=== PATIENT | female | born 1965 | race Caucasian/White ===

== ENCOUNTER → 2017-01-28 | Outpatient (CLI) | payer MEDICARE, MEDICAID ==
--- NOTE | 2017-02-01 09:10 | MM ---
Reason for exam: screening (asymptomatic). Baseline mammogram. History: Patient is postmenopausal. Benign excisional biopsy of the right breast, 1992. Physical Findings: Nurse did not find any significant physical abnormalities on exam. MG 3D Screening Mammo W/Cad Bilateral CC and MLO view(s) were taken. The breast tissue is extremely dense which could obscure a lesion on mammography. ASSESSMENT: Benign, BI-RAD 2 RECOMMENDATION: Routine screening mammogram of both breasts in 1 year.
== END | disposition home or self-care (01) ==
LOC: RADMAMWWP 14:15
PROVIDERS: ATTEND Obstetrics & Gynecology
DX: Z12.31 Encounter for screening mammogram for malignant neoplasm of breast (principal)
CPT/HCPCS: 77063; G0202

== ENCOUNTER 2017-03-02 12:15 | Day surgery (SDC) | payer MEDICARE, OTHER ==
[2017-03-01 13:18] VITALS: BMI 28.3
[~2017-03-02 12:15] MED LIST: LACTATED RINGERS 1,000 ML IV SCH; LIDOCAINE 1% 20 ML VIAL (10MG/ML) FOR IV START INTRADERMA PRN
[2017-03-02 12:47] LABS: Glucose,Whole Blood 415 mg/dL (75-99)
[2017-03-02 12:56] VITALS: BP 194/78; PULSE 86; RESP 16; TEMP 98.1
== END 2017-03-02 13:10 | disposition home or self-care (01) ==
LOC: ORWHC2ENDO 12:15
DX: Z12.11 Encounter for screening for malignant neoplasm of colon (principal)

== ENCOUNTER 2018-12-14 23:06 | Emergency (ER) | payer MEDICARE, OTHER ==
[2018-12-15 00:12] LABS: Basophils % (A) 0 %; Eosinophils % (A) 0 %; HCT 42.8 % (34.0-46.0); HGB 14.2 gm/dL (11.4-16.0); Lymphocytes # (A) 2.1 k/uL (1.0-4.8); Lymphocytes % (A) 32 %; MCH 32.6 pg (25.0-35.0); MCHC 33.1 g/dL (31.0-37.0); MCV 98.4 fL (80.0-100.0); Mean Platelet Volume 9.2; Monocytes # (A) 0.4 k/uL (0-1.0); Monocytes % (A) 7 %; Neutrophils # (A) 3.9 k/uL (1.3-7.7); Neutrophils % (A) 59 %; Platelet Count 297 k/uL (150-450); RBC 4.34 m/uL (3.80-5.40); RDW 13.6 % (11.5-15.5); WBC 6.6 k/uL (3.8-10.6)
[2018-12-15 00:24] LABS: Albumin 3.9 g/dL (3.5-5.0); Amylase 72 U/L (30-110); Anion Gap 6 mmol/L; Calcium 9.1 mg/dL (8.4-10.2); Carbon Dioxide 25 mmol/L (22-30); Chloride 107 mmol/L (98-107); Glucose 77 mg/dL (74-99); Lipase 70 U/L (23-300); Sodium 138 mmol/L (137-145); Total Bilirubin 0.9 mg/dL (0.2-1.3); Total Protein 6.9 g/dL (6.3-8.2)
[2018-12-15 00:31] LABS: ALT 30 U/L (9-52); AST 34 U/L (14-36); Alkaline Phosphatase 68 U/L (38-126); Blood Urea Nitrogen 13 mg/dL (7-17); Potassium 4.2 mmol/L (3.5-5.1)
--- NOTE | 2018-12-15 00:39 | XR ---
EXAMINATION TYPE: XR KUB DATE OF EXAM: 12/15/2018 COMPARISON: NONE HISTORY: Abdominal pain TECHNIQUE: 2 views FINDINGS: 2 upright views were obtained and show no sign of intestinal obstruction or pneumoperitoneu m. Fecal pattern is normal. Lung bases are clear. There are no pathologic calcifications over the kid neys. IMPRESSION: Nonacute abdomen.
[2018-12-15] MEDS ORDERED: MAG HYDROX/AL HYDROX/SIMETH 30 ML, HYOSCYAMINE ELIXIR 10 ML, CIMETIDINE HCL 300 MG, LID... PO STA ×4 (01:09)
[2018-12-15] MEDS ORDERED: ONDANSETRON 4 MG/2 ML VIAL IVP STA (01:09)
[2018-12-15] MEDS ORDERED: SODIUM CHLORIDE 0.9% 1,000 ML IV ONE (02:41)
[2018-12-15] MEDS ORDERED: METOCLOPRAMIDE 5 MG/ML 2 ML VIAL IVP STA (02:45)
--- NOTE | 2018-12-15 03:39 | ED ---
Abdominal Pain HPI - General Chief Complaint: Abdominal Pain Stated Complaint: Abdominal Pain Time Seen by Provider: 12/14/18 23:31 Source: patient, EMS Mode of arrival: EMS Limitations: no limitations - History of Present Illness MD Complaint: abdominal pain -: hour(s) Location: diffuse Radiation: none Migration to: no migration Severity: mild Quality: cramping Consistency: intermittent Improves With: nothing Worsens With: nothing Associated Symptoms: nausea, vomiting - Related Data Home Medications Medication Instructions Recorded Confirmed Albuterol Inhaler [Ventolin Hfa 1 - 2 puff INHALATION RT-Q6H PRN 11/10/16 Inhaler] Insulin Glargine,Hum.rec.anlog 20 unit SQ HS 11/10/16 12/14/18 [Lantus Solostar] Insulin NPH Hum/Reg Insulin Hm 10 unit SQ DAILY 11/10/16 12/14/18 [humuLIN 70/30 Kwikpen] Losartan-Hctz 50-12.5 mg [Hyzaar 1 tab PO DAILY 11/10/16 12/14/18 50-12.5] Insulin NPH Hum/Reg Insulin Hm 8 unit SQ HS 03/01/17 12/14/18 [humuLIN 70/30 Kwikpen] Venlafaxine HCl ER [Effexor XR] 150 mg PO HS 03/01/17 12/14/18 cloNIDine HCL 0.3 mg PO HS 12/14/18 12/14/18 Previous Rx's Medication Instructions Recorded Famotidine [Pepcid] 20 mg PO BID #14 tablet 12/15/18 Ondansetron Odt [Zofran ODT] 4 mg PO Q8HR PRN #10 tab 12/15/18 Allergies Allergy/AdvReac Type Severity Reaction Status Date / Time No Known Allergies Allergy Verified 12/14/18 23:26 Review of Systems ROS Statement: Those systems with pertinent positive or pertinent negative responses have been documented in the HPI. ROS Other: All systems not noted in ROS Statement are negative. Constitutional: Denies: fever, chills, weakness Respiratory: Denies: cough, dyspnea Cardiovascular: Denies: chest pain, palpitations, syncope Gastrointestinal: Reports: abdominal pain, nausea, vomiting. Denies: diarrhea, constipation, hematemesis, melena, hematochezia Genitourinary: Denies: dysuria, hematuria Musculoskeletal: Denies: back pain Skin: Denies: rash Neurological: Denies: headache, weakness, numbness Past Medical History Past Medical History: Diabetes Mellitus, Eye Disorder, Osteoarthritis (OA) Additional Past Medical History / Comment(s): MS, diabetes mellitus, diabetic neuropathy, ischemic neuropathy of the right eye, optic neuritis, History of Any Multi-Drug Resistant Organisms: None Reported Past Surgical History: Adenoidectomy, Appendectomy, Tonsillectomy, Tubal Ligation Past Anesthesia/Blood Transfusion Reactions: No Reported Reaction Past Psychological History: Anxiety, Depression Smoking Status: Current every day smoker Past Alcohol Use History: Occasional Past Drug Use History: None Reported - Past Family History Father Additional Family Medical History / Comment(s): She states she is adopted and she does not want anything about her father's history. Mother Family Medical History: Myocardial Infarction ([place]) Additional Family Medical History / Comment(s): Mother at age 48 from coronary artery disease. Patient does not have any brothers and sisters. She has one adult son with no major medical problems. General Exam Limitations: no limitations General appearance: alert, in no apparent distress Head exam: Present: atraumatic, normocephalic Eye exam: Present: normal appearance. Absent: scleral icterus, conjunctival injection ENT exam: Present: normal oropharynx Respiratory exam: Present: normal lung sounds bilaterally. Absent: respiratory distress, wheezes, rales, rhonchi, stridor Cardiovascular Exam: Present: regular rate, normal rhythm, normal heart sounds. Absent: systolic murmur, diastolic murmur, rubs, gallop GI/Abdominal exam: Present: soft. Absent: distended, tenderness, guarding, rebound, rigid, mass Extremities exam: Present: normal inspection, normal capillary refill. Absent: pedal edema Back exam: Present: normal inspection. Absent: CVA tenderness (R), CVA tenderness (L) Neurological exam: Present: alert Skin exam: Present: warm, dry, intact, normal color. Absent: rash Course Vital Signs 12/14/18 12/14/18 12/15/18 23:09 23:10 00:00 Temperature 98.0 F Pulse Rate 67 Respiratory 18 Rate Blood Pressure 150/75 129/69 O2 Sat by Pulse 100 100 98 Oximetry 12/15/18 12/15/18 12/15/18 01:00 01:51 04:30 Temperature Pulse Rate 54 L Respiratory 16 16 Rate Blood Pressure 107/63 101/58 O2 Sat by Pulse 100 100 Oximetry 12/15/18 12/15/18 12/15/18 05:00 06:00 06:54 Temperature 98.1 F Pulse Rate 72 64 52 L Respiratory 14 14 14 Rate Blood Pressure 101/58 102/62 95/53 O2 Sat by Pulse 100 Oximetry 12/15/18 08:18 Temperature 97.8 F Pulse Rate 55 L Respiratory 16 Rate Blood Pressure 96/54 O2 Sat by Pulse 99 Oximetry Medical Decision Making - Lab Data Result diagrams: 12/14/18 23:14 12/14/18 23:14 Lab Results 12/14/18 12/14/18 12/14/18 Range/Units 23:14 23:14 23:14 WBC 6.6 (3.8-10.6) k/uL RBC 4.34 (3.80-5.40) m/uL Hgb 14.2 (11.4-16.0) gm/dL Hct 42.8 (34.0-46.0) % MCV 98.4 (80.0-100.0) fL MCH 32.6 (25.0-35.0) pg MCHC 33.1 (31.0-37.0) g/dL RDW 13.6 (11.5-15.5) % Plt Count 297 (150-450) k/uL Neutrophils % 59 % Lymphocytes % 32 % Monocytes % 7 % Eosinophils % 0 % Basophils % 0 % Neutrophils # 3.9 (1.3-7.7) k/uL Lymphocytes # 2.1 (1.0-4.8) k/uL Monocytes # 0.4 (0-1.0) k/uL Eosinophils # 0.0 (0-0.7) k/uL Basophils # 0.0 (0-0.2) k/uL Sodium 138 (137-145) mmol/L Potassium 4.2 (3.5-5.1) mmol/L Chloride 107 (98-107) mmol/L Carbon Dioxide 25 (22-30) mmol/L Anion Gap 6 mmol/L BUN 13 (7-17) mg/dL Creatinine 0.73 (0.52-1.04) mg/dL Est GFR (CKD-EPI)AfAm >90 (>60 ml/min/1.73 sqM) Est GFR (CKD-EPI)NonAf >90 (>60 ml/min/1.73 sqM) Glucose 77 (74-99) mg/dL POC Glucose (mg/dL) (75-99) mg/dL POC Glu Data Processing Specialist ID Plasma Lactic Acid Roger 1.0 (0.7-2.0) mmol/L Calcium 9.1 (8.4-10.2) mg/dL Total Bilirubin 0.9 (0.2-1.3) mg/dL AST 34 (14-36) U/L ALT 30 (9-52) U/L Alkaline Phosphatase 68 (38-126) U/L Total Protein 6.9 (6.3-8.2) g/dL Albumin 3.9 (3.5-5.0) g/dL Amylase 72 (30-110) U/L Lipase 70 (23-300) U/L 12/15/18 12/15/18 12/15/18 Range/Units 04:29 05:03 07:37 WBC (3.8-10.6) k/uL RBC (3.80-5.40) m/uL Hgb (11.4-16.0) gm/dL Hct (34.0-46.0) % MCV (80.0-100.0) fL MCH (25.0-35.0) pg MCHC (31.0-37.0) g/dL RDW (11.5-15.5) % Plt Count (150-450) k/uL Neutrophils % % Lymphocytes % % Monocytes % % Eosinophils % % Basophils % % Neutrophils # (1.3-7.7) k/uL Lymphocytes # (1.0-4.8) k/uL Monocytes # (0-1.0) k/uL Eosinophils # (0-0.7) k/uL Basophils # (0-0.2) k/uL Sodium (137-145) mmol/L Potassium (3.5-5.1) mmol/L Chloride (98-107) mmol/L Carbon Dioxide (22-30) mmol/L Anion Gap mmol/L BUN (7-17) mg/dL Creatinine (0.52-1.04) mg/dL Est GFR (CKD-EPI)AfAm (>60 ml/min/1.73 sqM) Est GFR (CKD-EPI)NonAf (>60 ml/min/1.73 sqM) Glucose (74-99) mg/dL POC Glucose (mg/dL) 57 L 167 H 101 H (75-99) mg/dL POC Glu Data Processing Specialist HE Surekha DenishaDenisha Bullard Jackelyn Plasma Lactic Acid Roger (0.7-2.0) mmol/L Calcium (8.4-10.2) mg/dL Total Bilirubin (0.2-1.3) mg/dL AST (14-36) U/L ALT (9-52) U/L Alkaline Phosphatase (38-126) U/L Total Protein (6.3-8.2) g/dL Albumin (3.5-5.0) g/dL Amylase (30-110) U/L Lipase (23-300) U/L Disposition Clinical Impression: Abdominal pain Disposition: HOME SELF-CARE Condition: Good Instructions: Abdominal Pain (ED) Prescriptions: Famotidine [Pepcid] 20 mg PO BID #14 tablet Ondansetron Odt [Zofran ODT] 4 mg PO Q8HR PRN #10 tab PRN Reason: Nausea Is patient prescribed a controlled substance at d/c from ED?: No Referrals: Ryan Pino MD [Primary Care Provider] - 1-2 days
[2018-12-15 04:31] LABS: Glucose,Whole Blood 57 mg/dL (75-99)
[2018-12-15] MEDS ORDERED: DEXTROSE 50%-WATER 50 ML SYRINGE IVP STA (04:35)
[2018-12-15 05:07] LABS: Glucose,Whole Blood 167 mg/dL (75-99)
--- NOTE | 2018-12-15 05:25 | CT ---
EXAMINATION TYPE: CT abdomen pelvis w con DATE OF EXAM: 12/15/2018 COMPARISON: None HISTORY: RUQ pain CT DLP: 732.4 mGycm Automated exposure control for dose reduction was used. TECHNIQUE: Helical acquisition of images was performed from the lung bases through the pelvis. CONTRAST: Performed without Oral Contrast and with IV Contrast, patient injected with 100 mL of Isovue 300. FINDINGS: There is minimal subsegmental atelectasis at the lung bases. Heart size is normal. There is no perica rdial effusion. Stomach appears normal. Liver spleen pancreas gallbladder appear normal. Bile ducts are not dilated. There is no adrenal mass . Kidneys show satisfactory contrast opacification. There is no hydronephrosis. There are clips at th e cecum. There is no free fluid in the pelvis. Bladder distends smoothly. Ureters are not dilated. Th ere is no inguinal hernia. There is no free fluid in the pelvis. There is no evidence of pelvic mass. There is no mesenteric delia ma. I see no intestinal wall thickening. There is no sign of free air. I see no bony destructive proc ess. Lumbar spine is intact. IMPRESSION: SUBSEGMENTAL ATELECTASIS AT THE LUNG BASES. NO ACUTE ABNORMALITY WITHIN THE ABDOMEN AND PELVIS. I DO NOT SEE A CAUSE FOR RIGHT UPPER QUADRANT PAIN.
[2018-12-15 07:41] LABS: Glucose,Whole Blood 101 mg/dL (75-99)
--- NOTE | 2018-12-15 08:07 | US ---
EXAMINATION TYPE: US abdomen limited DATE OF EXAM: 12/15/2018 COMPARISON: CLINICAL HISTORY: Pain, attention RUQ. RUQ pain EXAM MEASUREMENTS: Liver Length: 15.3 cm Gallbladder Wall: 0.3 cm CBD: 0.3 cm CHD: 0.3 cm Right Kidney: 10.7 x 5.2 x 4.6 cm Pancreas: wnl Liver: wnl Gallbladder: wnl Evidence for sonographic Holman's sign: neg CBD: wnl CHD: wnl Right Kidney: wnl IMPRESSION: No sonographic evidence of cholelithiasis nor acute cholecystitis. Hepatic echotexture is unremarkable. No hydronephrosis of either kidney.
[2018-12-15 08:19] VITALS: BP 96/54; PULSE 55; RESP 16; TEMP 97.8
== END 2018-12-15 08:19 | disposition home or self-care (01) ==
LOC: EC 23:06
DX: R10.84 Generalized abdominal pain (principal); R11.2 Nausea with vomiting, unspecified; E11.40 Type 2 diabetes mellitus with diabetic neuropathy, unspecified; F32.9 Major depressive disorder, single episode, unspecified; F41.9 Anxiety disorder, unspecified; F17.200 Nicotine dependence, unspecified, uncomplicated; Z79.4 Long term (current) use of insulin; Z79.899 Other long term (current) drug therapy; Z90.49 Acquired absence of other specified parts of digestive tract
CPT/HCPCS: 36415 ×2; 80053; 82150; 83605; 83690; 85025; 74018; 76705; 74177; 99285; 96374; 96375 ×2; 96361 ×2; J2765; J2405; Q9967

== ENCOUNTER → 2020-07-04 | Outpatient (CLI) | payer MEDICARE, OTHER ==
--- NOTE | 2020-07-04 17:24 | CT ---
EXAMINATION TYPE: CT ankle RT wo con DATE OF EXAM: 07/04/2020 COMPARISON: None HISTORY: chronic right ankle pain CT DLP: 175.2 mGycm Automated exposure control for dose reduction was used. CONTRAST: CT scan of the right ankle is performed without intravenous contrast. Coronal and sagittal reformatte d images obtained. Three-dimensional images were generated on a separate workstation. FINDINGS: There is no evidence of acute fracture, fracture fragment, or dislocation. No evidence of cortical de pression. Normal osseous mineralization. There is narrowing of the tibiotalar joint space at the ankl e mortise. The ankle mortise is intact. Subchondral cysts of the tibiotalar and fibulotalar joints ar e seen. Plantar enthesophyte. Significant vascular calcifications. No evidence of fascial plane disru ption. No lytic or blastic osseous lesions. 3-dimensional images consistent with the above findings. IMPRESSION: 1. No acute osseous abnormality. 2. Degenerative ankle joint space narrowing and subchondral cysts. 3. Plantar enthesophyte. 4. Marked vascular calcified disease.
== END | disposition home or self-care (01) ==
LOC: RADCTMAIN 13:37
PROVIDERS: ATTEND Orthopaedic Surgery
DX: M19.071 Primary osteoarthritis, right ankle and foot (principal); M25.871 Other specified joint disorders, right ankle and foot; M77.51 Other enthesopathy of right foot and ankle; E10.9 Type 1 diabetes mellitus without complications; E03.9 Hypothyroidism, unspecified; G35 Multiple sclerosis

== ENCOUNTER → 2020-08-12 | Outpatient (CLI) | payer MEDICARE, OTHER ==
[2020-08-12 10:55] VITALS: BP 128/63; PULSE 85; RESP 18; TEMP 97.9
--- NOTE | 2020-08-12 11:22 | P.CONS ---
History of Present Illness - Reason for Consult Consult date: 08/12/20 - Chief Complaint Right ankle pain - History of Present Illness This is a 55-year-old lady with history of right ankle pain which started 2 years ago with no precipitating events. The pain has been getting worse to the extent that she has been using a cane to help her ambulate. Of note the patient has a history of diabetes and diabetic peripheral neuropathy and history also of tobacco use and alcohol abuse. Her pain is constant and gets worse by weight- bearing activities. It also wakes her up at night. She denies any numbness or tingling in the foot. She admits to using 4-5 pills of Motrin 800 mg every day. She tried tramadol before which didn't help her pain however she did try [place] before which has helped her pain as she states. She did use 10 mg of Barnhill before every day however that was long time ago. The patient also had multiple steroid injection in the ankle by her squilgeer which increased her blood sugar level and give her only temporary relief of her pain. Her surgeons at suggest that she gets to be on patellar joint replacement however she was denied surgeon because of her history of tobacco dependence. Review of Systems Constitutional: Denies chills, Denies fever Ears, nose, mouth and throat: Denies headache, Denies sore throat Cardiovascular: Denies chest pain, Denies shortness of breath Respiratory: Denies cough Genitourinary: Denies dysuria, Denies hematuria Musculoskeletal: Reports as per HPI Integumentary: Denies pruritus, Denies rash Neurological: Reports as per HPI Psychiatric: Denies anxiety, Denies depression Endocrine: Reports high blood sugars Past Medical History Past Medical History: Diabetes Mellitus, Eye Disorder, Musculoskeletal Disorder, Osteoarthritis (OA), Thyroid Disorder Additional Past Medical History / Comment(s): Mutiple Sclerosis. IDDM Type I, hx seizure w/ hypoglycemic episodes, diabetic neuropathy, ischemic neuropathy of the Lt eye, optic neuritis Rt eye. OA, efren in Rt ankle. Hx prob w/ cervical discs. History of Any Multi-Drug Resistant Organisms: None Reported Past Surgical History: Adenoidectomy, Appendectomy, Tonsillectomy, Tubal Ligation Additional Past Surgical History / Comment(s): Laparoscopies. Pain procedures. Past Anesthesia/Blood Transfusion Reactions: Motion Sickness Past Psychological History: Anxiety, Depression Smoking Status: Current some day smoker Past Alcohol Use History: Rare Additional Past Alcohol Use History / Comment(s): Started smoking at age 14, up to 1 1/2 ppd, quit 2 1/2 weeks ago. Past Drug Use History: Marijuana Additional Drug Use History / Comment(s): "may hit a joint rarely" - Past Family History Father Additional Family Medical History / Comment(s): She states she is adopted and she does not want anything about her father's history. Mother Family Medical History: Myocardial Infarction ([place]) Additional Family Medical History / Comment(s): Mother at age 48 from isaiah nary artery disease. Patient does not have any brothers and sisters. She has one adult son with no major medical problems. Medications and Allergies Home Medications Medication Instructions Recorded Confirmed Type Albuterol Inhaler (Mhu) [Ventolin 1 - 2 puff INHALATION RT-Q6H PRN 11/10/16 08/12/20 History Hfa Inhaler (Mhu)] Insulin Glargine,Hum.rec.anlog 18 unit SQ HS 11/10/16 08/12/20 History [Lantus Solostar] Insulin NPH Hum/Reg Insulin Hm 12 unit SQ DAILY 11/10/16 08/12/20 History [humuLIN 70/30 Kwikpen] Insulin NPH Hum/Reg Insulin Hm 14 unit SQ HS 03/01/17 08/12/20 History [humuLIN 70/30 Kwikpen] Venlafaxine HCl ER [Effexor XR] 75 mg PO TID 03/01/17 08/12/20 History cloNIDine HCL 0.3 mg PO HS 12/14/18 08/12/20 History Gabapentin [Neurontin] 800 mg PO TID 08/08/20 08/12/20 History Ibuprofen [Motrin] 800 mg PO Q8H PRN 08/08/20 08/12/20 History Levothyroxine Sodium [Synthroid] 100 mcg PO DAILY 08/08/20 08/12/20 History Losartan/Hydrochlorothiazide 1 tab PO DAILY 08/08/20 08/12/20 History [Losartan-Hctz 100-12.5 mg Tab] QUEtiapine [SEROquel] 100 mg PO HS 08/08/20 08/12/20 History Allergies Allergy/AdvReac Type Severity Reaction Status Date / Time No Known Allergies Allergy Verified 08/08/20 14:04 Physical Exam Vitals: Vital Signs Temp Pulse Resp BP Pulse Ox 08/12/20 10:47 97.9 F 85 18 128/63 98 - Constitutional General appearance: obese - EENT Eyes: PERRLA - Musculoskeletal Mild edema on the lateral malleolus. Positive tenderness around the lateral malleolus. Normal capillary refill in the right toes. Decreased but symmetrical dorsalis pedis pulse. Decreased range of motion of the right ankle due to increasing pain. - Psychiatric Psychiatric: A&O x's 3, appropriate affect, intact judgment & insight Results Comments: Computed tomography scan of the right ankle showed narrowing of the tibiotalar joint and subchondral cysts with plantar osteophytes and significant vascular calcifications. Assessment and Plan Plan: This is a 55-year-old lady with osteoarthritis in the right ankle joint and significant vascular calcification. The patient has a history of note peripheral neuropathy, insulin-dependent diabetes and tobacco dependence. She also has a remote history of alcohol abuse. The patient failed to respond to physical therapy and steroid injections in the right ankle joint by her squilgeer. The patient suggested that [place] might help her pain however with her history of alcohol abuse and tobacco dependence and withdrawal that she is a good candidate for that. I'll give the patient prescription for diclofenac ointment to be used on the right ankle. I encouraged the patient to decrease the usage of her Motrin to not more than 3 pills a day of 800 mg Motrin and preferably fewer. I also encouraged the patient to quit smoking. The patient will follow up with her squilgeer about this problem however I do not think that we can offer her any benefits in our clinic. I thank you for the referral.
== END | disposition home or self-care (01) ==
LOC: PNWHC3 10:39
PROVIDERS: ATTEND Anesthesiology
DX: M19.071 Primary osteoarthritis, right ankle and foot (principal); E11.21 Type 2 diabetes mellitus with diabetic nephropathy; E07.9 Disorder of thyroid, unspecified; R56.9 Unspecified convulsions; F17.210 Nicotine dependence, cigarettes, uncomplicated; Z79.899 Other long term (current) drug therapy; Z79.4 Long term (current) use of insulin; Z79.1 Long term (current) use of non-steroidal anti-inflammatories (NSAID); Z79.890 Hormone replacement therapy
CPT/HCPCS: 99211

== ENCOUNTER 2020-11-03 14:01 | Emergency (ER) | payer MEDICARE, OTHER ==
[2020-11-03 14:11] VITALS: TEMP 98
[2020-11-03] MEDS ORDERED: ONDANSETRON 4 MG/2 ML VIAL IVP STA (14:13)
[2020-11-03] MEDS ORDERED: SODIUM CHLORIDE 0.9% 1,000 ML IV STA ×2 (14:13)
[2020-11-03] MEDS ORDERED: METOCLOPRAMIDE 5 MG/ML 2 ML VIAL IVP STA (14:14)
[2020-11-03] MEDS ORDERED: PANTOPRAZOLE 40 MG/10 ML VIAL IVP STA (14:14)
[2020-11-03] MEDS ORDERED: diphenhydrAMINE 50 MG/ML 1 ML VIAL IVP STA (14:14)
--- NOTE | 2020-11-03 14:20 | ED ---
General Adult HPI - General Chief complaint: Nausea/Vomiting/Diarrhea Stated complaint: Nausea & vomiting Time Seen by Provider: 11/03/20 14:03 Source: patient, EMS, RN notes reviewed, old records reviewed Mode of arrival: EMS Limitations: no limitations - History of Present Illness Initial comments: 55-year-old female presents to the emergency department today for evaluation for complaints of nausea and vomiting starting last night. Patient is a type II diabetic reports her blood sugars have been abnormal. She states that she has a burning epigastric discomfort like heartburn. She also reports she's had 1 month of a cough. - Related Data Home Medications Medication Instructions Recorded Confirmed Insulin Glargine,Hum.rec.anlog 18 unit SQ HS 11/10/16 11/03/20 [Lantus Solostar] Insulin NPH Hum/Reg Insulin Hm 12 unit SQ BID 11/10/16 11/03/20 [humuLIN 70/30 Kwikpen] Gabapentin [Neurontin] 800 mg PO TID 08/08/20 11/03/20 Ibuprofen [Motrin] 800 mg PO TID PRN 08/08/20 11/03/20 Levothyroxine Sodium [Synthroid] 100 mcg PO DAILY 08/08/20 11/03/20 Losartan/Hydrochlorothiazide 1 tab PO DAILY 08/08/20 11/03/20 [Losartan-Hctz 100-12.5 mg Tab] QUEtiapine [SEROquel] 100 mg PO HS 08/08/20 11/03/20 Albuterol Sulfate [Ventolin HFA] 2 puff INHALATION RT-QID PRN 11/03/20 11/03/20 Cephalexin [Keflex] 500 mg PO Q8H 11/03/20 11/03/20 Previous Rx's Medication Instructions Recorded Metoclopramide [Reglan] 10 mg PO ACHS #12 tab 11/03/20 Pantoprazole [Protonix] 40 mg PO DAILY #20 tablet. 11/03/20 Allergies Allergy/AdvReac Type Severity Reaction Status Date / Time No Known Allergies Allergy Verified 11/03/20 15:53 Review of Systems ROS Statement: Those systems with pertinent positive or pertinent negative responses have been documented in the HPI. ROS Other: All systems not noted in ROS Statement are negative. Past Medical History Past Medical History: Diabetes Mellitus, Eye Disorder, Musculoskeletal Disorder, Osteoarthritis (OA), Thyroid Disorder Additional Past Medical History / Comment(s): Mutiple Sclerosis. IDDM Type I, hx seizure w/ hypoglycemic episodes, diabetic neuropathy, ischemic neuropathy of the Lt eye, optic neuritis Rt eye. OA, efren in Rt ankle. Hx prob w/ cervical discs. History of Any Multi-Drug Resistant Organisms: None Reported Past Surgical History: Adenoidectomy, Appendectomy, Tonsillectomy, Tubal Ligation Additional Past Surgical History / Comment(s): Laparoscopies. Pain procedures. Past Anesthesia/Blood Transfusion Reactions: Motion Sickness Past Psychological History: Anxiety, Depression Smoking Status: Current some day smoker Past Alcohol Use History: Occasional Past Drug Use History: Marijuana - Past Family History Father Additional Family Medical History / Comment(s): She states she is adopted and she does not want anything about her father's history. Mother Family Medical History: Myocardial Infarction ([place]) Additional Family Medical History / Comment(s): Mother at age 48 from coronary artery disease. Patient does not have any brothers and sisters. She has one adult son with no major medical problems. General Exam - General Exam Comments Initial Comments: 55 -year-old female. Patient appears in moderate discomfort. Limitations: no limitations General appearance: alert, in no apparent distress Head exam: Present: atraumatic, normocephalic, normal inspection Eye exam: Present: normal appearance, PERRL, EOMI. Absent: scleral icterus, conjunctival injection, periorbital swelling ENT exam: Present: normal exam, mucous membranes moist Neck exam: Present: normal inspection. Absent: tenderness, meningismus, lymphadenopathy Respiratory exam: Present: normal lung sounds bilaterally. Absent: respiratory distress, wheezes, rales, rhonchi, stridor Cardiovascular Exam: Present: regular rate, normal rhythm, normal heart sounds. Absent: systolic murmur, diastolic murmur, rubs, gallop, clicks GI/Abdominal exam: Present: soft Extremities exam: Present: normal inspection, full ROM, normal capillary refill. Absent: tenderness, pedal edema, joint swelling, calf tenderness Back exam: Present: normal inspection Neurological exam: Present: alert, oriented X3, CN II-XII intact Psychiatric exam: Present: normal affect, normal mood Skin exam: Present: warm, dry, intact, normal color. Absent: rash Course Vital Signs 11/03/20 11/03/20 14:03 15:19 Temperature 98.0 F Pulse Rate 89 84 Respiratory 18 16 Rate Blood Pressure 168/75 142/78 O2 Sat by Pulse 99 95 Oximetry Medical Decision Making - Medical Decision Making 55-year-old female presents emergency department today for evaluation for nausea and vomiting epigastric discomfort and burning sensation. This with heartburn. She was concerned with the vomiting causing 12 hours and concern for dehydration. Patient was given IV fluid boluses labs obtained. Labs reviewed and unremarkable. She has no abdominal tenderness. She does report a cough for the past month and Patient received chest x-ray which shows no acute cardio primary process. Since likely bronchitis. Discussed to discontinue smoking. At this time Patient does feel improved after Reglan Benadryl Protonix. Discussed return parameters. - Lab Data Result diagrams: 11/03/20 14:46 11/03/20 14:46 Lab Results 11/03/20 11/03/20 11/03/20 Range/Units 14:46 14:46 14:46 WBC 11.4 H (3.8-10.6) k/uL RBC 4.57 (3.80-5.40) m/uL Hgb 15.1 (11.4-16.0) gm/dL Hct 44.3 (34.0-46.0) % MCV 97.1 (80.0-100.0) fL MCH 33.0 (25.0-35.0) pg MCHC 34.0 (31.0-37.0) g/dL RDW 12.6 (11.5-15.5) % Plt Count 304 (150-450) k/uL MPV 9.5 Neutrophils % 84 % Lymphocytes % 11 % Monocytes % 4 % Eosinophils % 1 % Basophils % 0 % Neutrophils # 9.6 H (1.3-7.7) k/uL Lymphocytes # 1.2 (1.0-4.8) k/uL Monocytes # 0.4 (0-1.0) k/uL Eosinophils # 0.1 (0-0.7) k/uL Basophils # 0.0 (0-0.2) k/uL Sodium 136 L (137-145) mmol/L Potassium 4.0 (3.5-5.1) mmol/L Chloride 100 (98-107) mmol/L Carbon Dioxide 22 (22-30) mmol/L Anion Gap 14 mmol/L BUN 14 (7-17) mg/dL Creatinine 0.76 (0.52-1.04) mg/dL Est GFR (CKD-EPI)AfAm >90 (>60 ml/min/1.73 sqM) Est GFR (CKD-EPI)NonAf 89 (>60 ml/min/1.73 sqM) Glucose 237 H (74-99) mg/dL Calcium 10.1 (8.4-10.2) mg/dL Total Bilirubin 1.0 (0.2-1.3) mg/dL AST 37 H (14-36) U/L ALT 23 (4-34) U/L Alkaline Phosphatase 123 (38-126) U/L Total Protein 7.9 (6.3-8.2) g/dL Albumin 4.6 (3.5-5.0) g/dL Amylase 63 (30-110) U/L Lipase 28 (23-300) U/L Urine Color Light Yellow Urine Appearance Clear (Clear) Urine pH 6.0 (5.0-8.0) Ur Specific [place] 1.019 (1.001-1.035) Urine Protein 1+ H (Negative) Urine Glucose (UA) 4+ H (Negative) Urine Ketones 4+ H (Negative) Urine Blood Trace H (Negative) Urine Nitrite Negative (Negative) Urine Bilirubin Negative (Negative) Urine Urobilinogen <2.0 (<2.0) mg/dL Ur Leukocyte Esterase Negative (Negative) Urine RBC 1 (0-5) /hpf Urine WBC 1 (0-5) /hpf Ur Squamous Epith Cells <1 (0-4) /hpf Urine Bacteria Rare H (None) /hpf Urine Mucus Rare H (None) /hpf Coronavirus (PCR) (Not Detectd) 11/03/20 Range/Units 14:46 WBC (3.8-10.6) k/uL RBC (3.80-5.40) m/uL Hgb (11.4-16.0) gm/dL Hct (34.0-46.0) % MCV (80.0-100.0) fL MCH (25.0-35.0) pg MCHC (31.0-37.0) g/dL RDW (11.5-15.5) % Plt Count (150-450) k/uL MPV Neutrophils % % Lymphocytes % % Monocytes % % Eosinophils % % Basophils % % Neutrophils # (1.3-7.7) k/uL Lymphocytes # (1.0-4.8) k/uL Monocytes # (0-1.0) k/uL Eosinophils # (0-0.7) k/uL Basophils # (0-0.2) k/uL Sodium (137-145) mmol/L Potassium (3.5-5.1) mmol/L Chloride (98-107) mmol/L Carbon Dioxide (22-30) mmol/L Anion Gap mmol/L BUN (7-17) mg/dL Creatinine (0.52-1.04) mg/dL Est GFR (CKD-EPI)AfAm (>60 ml/min/1.73 sqM) Est GFR (CKD-EPI)NonAf (>60 ml/min/1.73 sqM) Glucose (74-99) mg/dL Calcium (8.4-10.2) mg/dL Total Bilirubin (0.2-1.3) mg/dL AST (14-36) U/L ALT (4-34) U/L Alkaline Phosphatase (38-126) U/L Total Protein (6.3-8.2) g/dL Albumin (3.5-5.0) g/dL Amylase (30-110) U/L Lipase (23-300) U/L Urine Color Urine Appearance (Clear) Urine pH (5.0-8.0) Ur Specific [place] (1.001-1.035) Urine Protein (Negative) Urine Glucose (UA) (Negative) Urine Ketones (Negative) Urine Blood (Negative) Urine Nitrite (Negative) Urine Bilirubin (Negative) Urine Urobilinogen (<2.0) mg/dL Ur Leukocyte Esterase (Negative) Urine RBC (0-5) /hpf Urine WBC (0-5) /hpf Ur Squamous Epith Cells (0-4) /hpf Urine Bacteria (None) /hpf Urine Mucus (None) /hpf Coronavirus (PCR) Not Detected (Not Detectd) 11/03/20 16:47 EKG shows sinus rhythm with voltage QRS. Cannot rule anterior infarct. Abnormal EKG. Ventricular rate of 15 70 bpm. Verbal 140 ms. QS duration is 84 ms. QT QTc is 14/[address] elevation. - Radiology Data Radiology results: report reviewed Disposition Clinical Impression: Nausea & vomiting, GERD (gastroesophageal reflux disease) Disposition: HOME SELF-CARE Condition: Good Instructions (If sedation given, give patient instructions): Acute Nausea and Vomiting (ED) Additional Instructions: Please use medication as discussed. Please follow up with family doctor if symptoms have not improved over the next two days. Please return to the emergency room if your symptoms increase or worsen or for any other concerns. Prescriptions: Pantoprazole [Protonix] 40 mg PO DAILY #20 tablet. Metoclopramide [Reglan] 10 mg PO ACHS #12 tab Is patient prescribed a controlled substance at d/c from ED?: No Referrals: Ryan Pino MD [Primary Care Provider] - 1-2 days Time of Disposition: 16:49
[2020-11-03 14:53] LABS: Basophils % (A) 0 %; Eosinophils # (A) 0.1 k/uL (0-0.7); Eosinophils % (A) 1 %; HCT 44.3 % (34.0-46.0); HGB 15.1 gm/dL (11.4-16.0); Lymphocytes # (A) 1.2 k/uL (1.0-4.8); Lymphocytes % (A) 11 %; MCV 97.1 fL (80.0-100.0); Mean Platelet Volume 9.5; Monocytes # (A) 0.4 k/uL (0-1.0); Monocytes % (A) 4 %; Neutrophils # (A) 9.6 k/uL (1.3-7.7); Neutrophils % (A) 84 %; Platelet Count 304 k/uL (150-450); RBC 4.57 m/uL (3.80-5.40); RDW 12.6 % (11.5-15.5); WBC 11.4 k/uL (3.8-10.6)
[2020-11-03 15:02] LABS: ALT 23 U/L (4-34); AST 37 U/L (14-36); African American GFR (CKD) >90 (>60 ml/min/1.73 sqM); Albumin 4.6 g/dL (3.5-5.0); Alkaline Phosphatase 123 U/L (38-126); Amylase 63 U/L (30-110); Anion Gap 14 mmol/L; Blood Urea Nitrogen 14 mg/dL (7-17); Calcium 10.1 mg/dL (8.4-10.2); Carbon Dioxide 22 mmol/L (22-30); Chloride 100 mmol/L (98-107); Glucose 237 mg/dL (74-99); Lipase 28 U/L (23-300); Non-African American GFR(CKD) 89 (>60 ml/min/1.73 sqM); Sodium 136 mmol/L (137-145); Total Protein 7.9 g/dL (6.3-8.2)
--- NOTE | 2020-11-03 15:19 | XR ---
EXAMINATION TYPE: XR chest 2V DATE OF EXAM: 11/03/2020 COMPARISON: NONE HISTORY: Cough TECHNIQUE: 2 views FINDINGS: Heart and mediastinum are normal. Lungs are clear. Diaphragm is normal. Bony thorax appears normal. IMPRESSION: Normal chest. Normal heart.
[2020-11-03 15:20] VITALS: RESP 16
[2020-11-03 15:28] LABS: Appearance,Urine Clear (Clear); Bacteria,Urine Rare /hpf; Bilirubin,Urine Negative (Negative); Blood,Urine Trace (Negative); Color,Urine Light Yellow; Glucose,Urine (UA) 4+ (Negative); Leukocyte Esterase,Urine Negative (Negative); Mucus,Urine Rare /hpf; Nitrite,Urine Negative (Negative); Protein,Urine 1+ (Negative); RBC,Urine 1 /hpf (0-5); Specific Gravity,Urine 1.019 (1.001-1.035); Squamous Epithelial Cell,Urine <1 /hpf (0-4); Urobilinogen,Urine <2.0 mg/dL (<2.0); WBC,Urine 1 /hpf (0-5)
[2020-11-03 15:54] LABS: Ketones,Urine 4+ (Negative)
[2020-11-03] MEDS ORDERED: SODIUM CHLORIDE 0.9% 1,000 ML IV ONE (15:56)
[2020-11-03 17:17] VITALS: BP 146/81; PULSE 79
== END 2020-11-03 17:17 | disposition home or self-care (01) ==
LOC: EC 14:01
DX: K21.9 Gastro-esophageal reflux disease without esophagitis (principal); R11.2 Nausea with vomiting, unspecified; Z71.6 Tobacco abuse counseling; E07.9 Disorder of thyroid, unspecified; E10.40 Type 1 diabetes mellitus with diabetic neuropathy, unspecified; F41.9 Anxiety disorder, unspecified; F32.9 Major depressive disorder, single episode, unspecified; F17.200 Nicotine dependence, unspecified, uncomplicated; Z79.4 Long term (current) use of insulin; Z79.890 Hormone replacement therapy; Z79.899 Other long term (current) drug therapy
CPT/HCPCS: 36415; 93005; 80053; 82150; 83690; 85025; 81001; 87635; 71046; 99284; 96374; 96375 ×2; 96361 ×3; J1200; J2765; C9113

== ENCOUNTER 2022-03-10 17:19 | Inpatient (IN) | payer MEDICARE, OTHER ==
[2022-03-10] MEDS ORDERED: SODIUM CHLORIDE 0.9% 1,000 ML IV STA (17:25)
[2022-03-10 17:51] LABS: Albumin 3.5 g/dL (3.5-5.0); Calcium 8.7 mg/dL (8.4-10.2); Magnesium 1.7 mg/dL (1.6-2.3); Potassium 3.9 mmol/L (3.5-5.1); Total Bilirubin 0.6 mg/dL (0.2-1.3); Total Protein 6.6 g/dL (6.3-8.2)
[2022-03-10 18:19] LABS: Basophils % (A) 0 %; Eosinophils % (A) 0 %; HGB 12.7 gm/dL (11.4-16.0); Lymphocytes # (A) 1.7 k/uL (1.0-4.8); Lymphocytes % (A) 16 %; MCH 32.9 pg (25.0-35.0); MCHC 32.6 g/dL (31.0-37.0); MCV 100.9 fL (80.0-100.0); Macrocytosis Slight; Mean Platelet Volume 10.3; Monocytes # (A) 0.6 k/uL (0-1.0); Monocytes % (A) 6 %; Neutrophils # (A) 8.3 k/uL (1.3-7.7); Neutrophils % (A) 76 %; Platelet Count 306 k/uL (150-450); RBC 3.86 m/uL (3.80-5.40); RDW 14.2 % (11.5-15.5); WBC 10.9 k/uL (3.8-10.6)
--- NOTE | 2022-03-10 18:20 | XR ---
EXAMINATION TYPE: XR chest 2V DATE OF EXAM: 03/10/2022 COMPARISON: 11/03/2020 HISTORY: Weakness TECHNIQUE: FINDINGS: Heart and mediastinum are normal. Lungs are clear. Diaphragm is normal. Bony thorax appears normal. IMPRESSION: Normal chest. No change.
[2022-03-10 18:29] LABS: INR 0.9 (<1.2); Partial Thromboplastin Time 24.6 sec (22.0-30.0); Prothrombin Time 9.6 sec (9.0-12.0)
--- NOTE | 2022-03-10 18:59 | ED ---
Dizziness HPI - General Chief Complaint: Dizziness Stated Complaint: Low Blood Pressure Time Seen by Provider: 03/10/22 17:24 Source: patient, EMS Mode of arrival: EMS - History of Present Illness Initial Comments: Patient presents with lightheadedness and dizziness. She has generalized weakness. Nothing makes her symptoms better or worse. She wasn't doing anything when this began. She has taken no medicine for the symptoms. She has no chest pain or pressure or tightness. She has no nausea or vomiting. She has no swelling in the arms or legs. She has had no sick contacts. She hasn't traveled anywhere. - Related Data Home Medications Medication Instructions Recorded Confirmed Insulin Glargine,Hum.rec.anlog 18 unit SQ HS 11/10/16 11/03/20 [Lantus Solostar Pen] Insulin NPH Hum/Reg Insulin Hm 12 unit SQ BID 11/10/16 11/03/20 [humuLIN 70/30 Kwikpen] Gabapentin [Neurontin] 800 mg PO TID 08/08/20 11/03/20 Ibuprofen [Motrin] 800 mg PO TID PRN 08/08/20 11/03/20 Levothyroxine Sodium [Synthroid] 100 mcg PO DAILY 08/08/20 11/03/20 Losartan/Hydrochlorothiazide 1 tab PO DAILY 08/08/20 11/03/20 [Losartan-Hctz 100-12.5 mg Tab] QUEtiapine [SEROquel] 100 mg PO HS 08/08/20 11/03/20 Albuterol Sulfate [Ventolin HFA] 2 puff INHALATION RT-QID PRN 11/03/20 11/03/20 cephALEXin [Keflex] 500 mg PO Q8H 11/03/20 11/03/20 Previous Rx's Medication Instructions Recorded Metoclopramide [Reglan] 10 mg PO ACHS #12 tab 11/03/20 Pantoprazole [Protonix] 40 mg PO DAILY #20 tablet. 11/03/20 Allergies Allergy/AdvReac Type Severity Reaction Status Date / Time No Known Allergies Allergy Verified 03/10/22 18:58 Review of Systems ROS Statement: Those systems with pertinent positive or pertinent negative responses have been documented in the HPI. ROS Other: All systems not noted in ROS Statement are negative. Past Medical History Past Medical History: Diabetes Mellitus, Eye Disorder, Musculoskeletal Disorder, Osteoarthritis (OA), Thyroid Disorder Additional Past Medical History / Comment(s): Mutiple Sclerosis. IDDM Type I, hx seizure w/ hypoglycemic episodes, diabetic neuropathy, ischemic neuropathy of the Lt eye, optic neuritis Rt eye. OA, efren in Rt ankle. Hx prob w/ cervical discs. History of Any Multi-Drug Resistant Organisms: None Reported Past Surgical History: Adenoidectomy, Appendectomy, Tonsillectomy, Tubal Ligation Additional Past Surgical History / Comment(s): Laparoscopies. Pain procedures. Past Anesthesia/Blood Transfusion Reactions: Motion Sickness Past Psychological History: Anxiety, Depression Smoking Status: Current some day smoker Past Alcohol Use History: Occasional Past Drug Use History: Marijuana - Past Family History Father Additional Family Medical History / Comment(s): She states she is adopted and she does not want anything about her father's history. Mother Family Medical History: Myocardial Infarction ([place]) Additional Family Medical History / Comment(s): Mother at age 48 from coronary artery disease. Patient does not have any brothers and sisters. She has one adult son with no major medical problems. General Exam General appearance: alert, in no apparent distress Head exam: Present: atraumatic, normocephalic, normal inspection Eye exam: Present: normal appearance, PERRL, EOMI. Absent: scleral icterus, conjunctival injection, periorbital swelling ENT exam: Present: normal exam, mucous membranes moist Neck exam: Present: normal inspection. Absent: tenderness, meningismus, lymphadenopathy Respiratory exam: Present: normal lung sounds bilaterally. Absent: respiratory distress, wheezes, rales, rhonchi, stridor Cardiovascular Exam: Present: regular rate, normal rhythm, normal heart sounds. Absent: systolic murmur, diastolic murmur, rubs, gallop, clicks GI/Abdominal exam: Present: soft, normal bowel sounds. Absent: distended, tenderness, guarding, rebound, rigid Extremities exam: Present: normal inspection, full ROM, normal capillary refill. Absent: tenderness, pedal edema, joint swelling, calf tenderness Back exam: Present: normal inspection Neurological exam: Present: alert, oriented X3, CN II-XII intact Psychiatric exam: Present: normal affect, normal mood Skin exam: Present: warm, dry, intact, normal color. Absent: rash Course Vital Signs 03/10/22 03/10/2222 17:22 17:34 18:10 Pulse Rate 75 67 Pulse Rate [ 74 Outreach Consultant ] Respiratory 20 22 18 Rate Blood Pressure 100/52 73/52 O2 Sat by Pulse 99 99 Oximetry EKG Findings - EKG Comments: EKG Findings:: Twelve-lead EKG shows ventricular rate 73 bpm, normal SD interval and QRS complexes, no ST elevation or depression, interpreted by me as normal sinus rhythm. Medical Decision Making - Medical Decision Making Patient presents with lightheadedness. Initial blood pressure is extremely low. She is given fluid bolus. She is feeling a little better. Her blood pressures improving she will be admitted to the hospital. - Lab Data Result diagrams: 03/10/22 17:30 03/10/22 17:30 Lab Results 03/10/22 03/10/22 03/10/22 Range/Units 17:30 17:30 17:30 WBC 10.9 H (3.8-10.6) k/uL RBC 3.86 (3.80-5.40) m/uL Hgb 12.7 (11.4-16.0) gm/dL Hct 39.0 (34.0-46.0) % MCV 100.9 H (80.0-100.0) fL MCH 32.9 (25.0-35.0) pg MCHC 32.6 (31.0-37.0) g/dL RDW 14.2 (11.5-15.5) % Plt Count 306 (150-450) k/uL MPV 10.3 Neutrophils % 76 % Lymphocytes % 16 % Monocytes % 6 % Eosinophils % 0 % Basophils % 0 % Neutrophils # 8.3 H (1.3-7.7) k/uL Lymphocytes # 1.7 (1.0-4.8) k/uL Monocytes # 0.6 (0-1.0) k/uL Eosinophils # 0.0 (0-0.7) k/uL Basophils # 0.0 (0-0.2) k/uL Macrocytosis Slight PT 9.6 (9.0-12.0) sec INR 0.9 (<1.2) APTT 24.6 (22.0-30.0) sec Sodium 131 L (137-145) mmol/L Potassium 3.9 (3.5-5.1) mmol/L Chloride 101 (98-107) mmol/L Carbon Dioxide 23 (22-30) mmol/L Anion Gap 7 mmol/L BUN 19 H (7-17) mg/dL Creatinine 1.86 H (0.52-1.04) mg/dL Est GFR (CKD-EPI)AfAm 34 (>60 ml/min/1.73 sqM) Est GFR (CKD-EPI)NonAf 29 (>60 ml/min/1.73 sqM) Glucose 294 H (74-99) mg/dL Plasma Lactic Acid Roger (0.7-2.0) mmol/L Calcium 8.7 (8.4-10.2) mg/dL Magnesium 1.7 (1.6-2.3) mg/dL Total Bilirubin 0.6 (0.2-1.3) mg/dL AST 31 (14-36) U/L ALT 22 (4-34) U/L Alkaline Phosphatase 105 (38-126) U/L Troponin I (0.000-0.034) ng/mL NT-Pro-B Natriuret Pep pg/mL Total Protein 6.6 (6.3-8.2) g/dL Albumin 3.5 (3.5-5.0) g/dL 03/10/22 03/10/22 03/10/22 Range/Units 17:30 17:30 17:30 WBC (3.8-10.6) k/uL RBC (3.80-5.40) m/uL Hgb (11.4-16.0) gm/dL Hct (34.0-46.0) % MCV (80.0-100.0) fL MCH (25.0-35.0) pg MCHC (31.0-37.0) g/dL RDW (11.5-15.5) % Plt Count (150-450) k/uL MPV Neutrophils % % Lymphocytes % % Monocytes % % Eosinophils % % Basophils % % Neutrophils # (1.3-7.7) k/uL Lymphocytes # (1.0-4.8) k/uL Monocytes # (0-1.0) k/uL Eosinophils # (0-0.7) k/uL Basophils # (0-0.2) k/uL Macrocytosis PT (9.0-12.0) sec INR (<1.2) APTT (22.0-30.0) sec Sodium (137-145) mmol/L Potassium (3.5-5.1) mmol/L Chloride (98-107) mmol/L Carbon Dioxide (22-30) mmol/L Anion Gap mmol/L BUN (7-17) mg/dL Creatinine (0.52-1.04) mg/dL Est GFR (CKD-EPI)AfAm (>60 ml/min/1.73 sqM) Est GFR (CKD-EPI)NonAf (>60 ml/min/1.73 sqM) Glucose (74-99) mg/dL Plasma Lactic Acid Roger 1.3 (0.7-2.0) mmol/L Calcium (8.4-10.2) mg/dL Magnesium (1.6-2.3) mg/dL Total Bilirubin (0.2-1.3) mg/dL AST (14-36) U/L ALT (4-34) U/L Alkaline Phosphatase (38-126) U/L Troponin I <0.012 (0.000-0.034) ng/mL NT-Pro-B Natriuret Pep 394 pg/mL Total Protein (6.3-8.2) g/dL Albumin (3.5-5.0) g/dL Disposition Clinical Impression: Hypotension Disposition: ADMITTED IP TO THIS [facility] Condition: Serious Is patient prescribed a controlled substance at d/c from ED?: No Referrals: Ryan Pino MD [Primary Care Provider] - 1-2 days
[2022-03-10] MEDS ORDERED: SODIUM CHLORIDE 0.9% 1,000 ML IV ONE (19:10)
[2022-03-10] MEDS ORDERED: NALOXONE 0.4 MG/ML 1 ML VIAL IV PRN (19:10)
[2022-03-10] MEDS ORDERED: ALBUTEROL NEBULIZED 2.5 MG/3 ML INHALATION PRN (19:11)
[2022-03-10 23:05] LABS: Glucose,Whole Blood 126 mg/dL (75-99)
[2022-03-10] MEDS: GABAPENTIN 400 MG CAP PO SCH (23:09)
[2022-03-10] MEDS: INSULN ASP PRT/INSULIN ASPART 100 UNIT/ML 10 ML VIAL SQ SCH (23:17)
[2022-03-10] MEDS: QUEtiapine 100 MG TAB PO PRN (23:17)
[2022-03-11] MEDS ORDERED: LOSARTAN 50 MG TAB PO SCH (09:00)
[2022-03-11] MEDS ORDERED: LOSARTAN-HCTZ 50-12.5 MG 1 EACH TAB PO SCH (09:00)
[2022-03-11 10:08] LABS: Glucose,Whole Blood 213 mg/dL (75-99)
[2022-03-11] MEDS: GABAPENTIN 400 MG CAP PO SCH ×2 (10:09→21:12)
[2022-03-11] MEDS: PANTOPRAZOLE 40 MG TABLET PO SCH (10:10)
[2022-03-11] MEDS: INSULIN DETEMIR (LEVEMIR) 100 UNIT/ML SYR SQ SCH (10:10)
[2022-03-11] MEDS: LEVOTHYROXINE 125 MCG TAB PO SCH (10:13)
[2022-03-11] MEDS ORDERED: CYCLOBENZAPRINE 10 MG TAB PO PRN (11:51)
[2022-03-11] MEDS ORDERED: CALCIUM CARBONATE 500 MG CHEWABLE PO PRN (11:52)
[2022-03-11] MEDS ORDERED: TEMAZEPAM 15 MG CAP PO PRN (11:52)
[2022-03-11] MEDS ORDERED: PROCHLORPERAZINE 5 MG TAB PO PRN (11:52)
[2022-03-11] MEDS ORDERED: LACTULOSE 20 GM/30 ML CUP PO PRN (11:52)
[2022-03-11] MEDS ORDERED: ACETAMINOPHEN TAB 325 MG TAB PO PRN (11:52)
[2022-03-11] MEDS ORDERED: CEFDINIR 300 MG CAP PO SCH (12:00)
[2022-03-11] MEDS ORDERED: ENOXAPARIN 40 MG/0.4 ML SYRINGE SQ SCH (12:00)
[2022-03-11 13:07] LABS: Glucose,Whole Blood 332 mg/dL (75-99)
[2022-03-11] MEDS: guaiFENesin 600 MG TABLET.ER PO SCH ×3 (13:10→21:12)
[2022-03-11] MEDS: methylPREDNISolone SOD SUCCI 40 MG/ML 1 ML VIAL IV SCH ×2 (13:11→21:12)
[2022-03-11] MEDS: NICOTINE 14MG/24HR PATCH TRANSDERM SCH (13:11)
--- NOTE | 2022-03-11 13:14 | P.HPIM ---
History of Present Illness H&P Date: 03/11/22 Chief Complaint: Cough This is a 57-year-old patient who follows with Dr. Vargas. Patient had gone on to [facility] yesterday as she was having significant cough. He said long- standing smoker. Patient had been increasing cough with yellow sputum for at least 7 days. Also had a fever. Poor appetite. Normally has a bowel movement every 3 days. Was getting dizzy lightheaded. When she went down to [facility] she was told her blood pressure was low was sent down to the ER. Had a blood pressure down to the 73 x 52 in the ER. Patient's antihypertensives were held. Given IV fluids. This morning patient still short of breath coughing wheezing. Tired rundown. Appetite started to feel a little bit better. Patient also wheezing quite a bit. Review of systems: GEN.: Tired decreased appetite EYES: None HEENT: None NECK: None RESPIRATORY: As above CARDIOVASCULAR: None GASTROINTESTINAL: None GENITOURINARY: None MUSCULOSKELETAL: Joint pains LYMPHATICS: None HEMATOLOGICAL: None PSYCHIATRY: None NEUROLOGICAL: Peripheral neuropathy Past medical history to include: COPD, diabetes, GERD, osteoarthritis, seizure disorder, hypothyroid, multiple sclerosis, diabetic peripheral neuropathy, optic neuritis, decreased vision in the eyes,; this problem, restless leg syndrome, colon polyps, anxiety depression Social history: Patient started smoking in 1978. Half a pack a day. More so in the past. She was drinking heavy alcohol up to about 5 years ago. This the room [employer]. Occasionally does marijuana. Does use a cane Family history: Mother of heart attack. Physical examination: VITAL SIGNS: 98.2, 67, 22, 73/52, 99% room air upon presentation GENERAL: BMI 28.3, declining bed, awake, short of breath coughing. EYES: Pupils equal. Conjunctiva normal. HEENT: External appearance of nose and ears normal, oral cavity grossly normal. NECK: JVD not raised; masses not palpable. HEART: First and second heart sounds are normal; no edema. LUNGS: Respiratory rate increased; diminished breath sounds prolonged expiration, not able to speak in full sentences. ABDOMEN: Soft, nontender, liver spleen not palpable, no masses palpable. PSYCH: [Alert and oriented x3; mood and affect anxious l. MUSCULOSKELETAL:No Clubbing/cyanosis;muscles-grossly intact. NEUROLOGICAL: Cranial nerves grossly intact; no facial asymmetry, power and sensation grossly intact. LYMPHATICS: No lymph nodes palpable in the axilla and neck INVESTIGATIONS, reviewed in the clinical context: White count 10.9 hemoglobin 12.7 platelets 306 sodium 131 potassium 3.9 BUN 19 creatinine 1.86 Glucose 294 lactic acid 1.3 proBNP 394 troponin I less than 0.012 EKG tracing personally reviewed by me-normal sinus rhythm Chest x-ray film personally reviewed by me-no obvious infiltrate. Assessment and plan: -Acute severe COPD exacerbation in a current smoker from acute tracheal bronchitis DuoNeb 4 times a day. IV Solu-Medrol. Nebulized Pulmicort andperforomist -Acute tracheal bronchitis Omnicef 300 mg twice a day. Sputum for Gram stain and culture -Chronic nicotine dependence, cigarette smoker Nicotine patch -Symptomatic hypotension from poor oral intake and acute kidney injury on presentation Hold patient's losartan and hydrochlorothiazide. Cutback Catapres 2.1 mg twice a day starting this evening. -Acute kidney injury, likely prerenal. She has lost creatinine in our records show 0.76 on October 2020. IV fluids. Stop NSAIDs. Follow labs -Hyponatremia from decreased food intake. Patient increase oral intake. -Diabetes mellitus type 2, chronically on insulin. Uncontrolled with hyperglycemia Resume insulin. Follow Accu-Cheks closely. -Diabetic peripheral neuropathy Change Neurontin to 400 mg 3 times a day in view of renal failure. -Hypothyroid Synthroid 125 g a -GERD Protonix 40 mg a -Restless leg syndrome requip 0.25 mg every daily at bedtime IV Solu-Medrol. Nebulized bronchodilators and long-acting beta agonist. DuoNeb. Hold Hyzaar. Cutback Catapres. Sputum for Gram stain and culture. Nicotine patch. Follow Accu-Cheks closely. Cutback nose and Neurontin. Care was discussed with the patient question also. Given the complexity and severity of patient's condition expect the patient to be in the hospital at least for 2 overnights Past Medical History Past Medical History: Diabetes Mellitus, Eye Disorder, Musculoskeletal Disorder, Osteoarthritis (OA), Thyroid Disorder Additional Past Medical History / Comment(s): Mutiple Sclerosis. IDDM Type I, hx seizure w/ hypoglycemic episodes, diabetic neuropathy, ischemic neuropathy of the Lt eye, optic neuritis Rt eye. OA, efren in Rt ankle. Hx prob w/ cervical discs. History of Any Multi-Drug Resistant Organisms: None Reported Past Surgical History: Adenoidectomy, Appendectomy, Tonsillectomy, Tubal Ligation Additional Past Surgical History / Comment(s): Laparoscopies. Pain procedures. Past Anesthesia/Blood Transfusion Reactions: Motion Sickness Past Psychological History: Anxiety, Depression Smoking Status: Current some day smoker Past Alcohol Use History: Occasional Past Drug Use History: Marijuana - Past Family History Father Additional Family Medical History / Comment(s): She states she is adopted and she does not want anything about her father's history. Mother Family Medical History: Myocardial Infarction ([place]) Additional Family Medical History / Comment(s): Mother at age 48 from coronary artery disease. Patient does not have any brothers and sisters. She has one adult son with no major medical problems. Medications and Allergies Home Medications Medication Instructions Recorded Confirmed Type Insulin Glargine,Hum.rec.anlog 18 unit SQ DAILY 11/10/16 03/10/22 History [Lantus Solostar Pen] Insulin NPH Hum/Reg Insulin Hm 12 unit SQ BID-W/MEALS 11/10/16 03/10/22 History [humuLIN 70/30 Kwikpen] Gabapentin [Neurontin] 800 mg PO TID 08/08/20 03/10/22 History Ibuprofen [Motrin] 800 mg PO TID 08/08/20 03/10/22 History Losartan/Hydrochlorothiazide 1 tab PO DAILY 08/08/20 03/10/22 History [Losartan-Hctz 100-12.5 mg Tab] QUEtiapine [SEROquel] 100 mg PO HS PRN 08/08/20 03/10/22 History Albuterol Sulfate [Ventolin HFA] 2 puff INHALATION RT-QID PRN 11/03/20 03/10/22 History Pantoprazole [Protonix] 40 mg PO DAILY #20 tablet. 11/03/20 03/10/22 Rx Cyclobenzaprine [Flexeril] 10 mg PO DAILY PRN 03/10/22 03/10/22 History Levothyroxine Sodium [Synthroid] 125 mcg PO DAILY 03/10/22 03/10/22 History cloNIDine HCL [Catapres] 0.3 mg PO DAILY PRN 03/10/22 03/10/22 History cloNIDine HCL [Catapres] 0.3 mg PO HS 03/10/22 03/10/22 History rOPINIRole HCL [Requip] 0.25 mg PO HS PRN 03/10/22 03/10/22 History Allergies Allergy/AdvReac Type Severity Reaction Status Date / Time No Known Allergies Allergy Verified 03/10/22 18:58 Physical Exam Vitals: Vital Signs Temp Pulse Pulse Resp BP BP Pulse Ox 03/11/22 08:00 97.9 F 80 18 118/64 97 03/11/22 06:22 61 20 120/68 96 03/11/22 02:00 66 18 117/80 03/10/22 23:00 69 18 92/55 96 03/10/22 20:00 98.2 F 62 18 88/65 99 03/10/22 18:10 67 18 73/52 99 03/10/22 17:34 74 22 03/10/22 17:22 75 20 100/52 99 Intake and Output 03/10/22 03/11/22 03/11/22 22:59 06:59 14:59 Other: Weight 68.039 kg Results CBC & Chem 7: 03/10/22 17:30 03/10/22 17:30 Labs: Abnormal Lab Results - Last 24 Hours (Table) 03/10/22 03/10/22 03/10/22 Range/Units 17:30 17:30 23:03 WBC 10.9 H (3.8-10.6) k/uL MCV 100.9 H (80.0-100.0) fL Neutrophils # 8.3 H (1.3-7.7) k/uL Sodium 131 L (137-145) mmol/L BUN 19 H (7-17) mg/dL Creatinine 1.86 H (0.52-1.04) mg/dL Glucose 294 H (74-99) mg/dL POC Glucose (mg/dL) 126 H (75-99) mg/dL
[2022-03-11] MEDS: SODIUM CHLORIDE 0.9% 1,000 ML IV SCH ×2 (13:15→21:13)
[2022-03-11] MEDS: FORMOTEROL FUMARATE 20 MCG/2 ML NEBU INHALATION SCH ×2 (13:22→19:53)
[2022-03-11] MEDS: BUDESONIDE 1 MG/2 ML NEBU INHALATION SCH ×2 (13:22→19:53)
[2022-03-11] MEDS: IPRATROPIUM-ALBUTEROL 3 ML NEB INHALATION SCH ×3 (13:27→19:53)
[2022-03-11] MEDS: INSULIN ASPART (NovoLOG) 100 UNIT/ML VIAL SQ SCH ×2 (13:38→17:13)
[2022-03-11] MEDS: INSULN ASP PRT/INSULIN ASPART 100 UNIT/ML 10 ML VIAL SQ SCH ×2 (13:38→21:17)
[2022-03-11 15:29] LABS: Glucose,Whole Blood 294 mg/dL (75-99)
[2022-03-11] MEDS ORDERED: cloNIDine HCL 0.1 MG TAB PO SCH (16:00)
[2022-03-11 17:02] LABS: Glucose,Whole Blood 184 mg/dL (75-99)
[2022-03-11 20:04] LABS: Glucose,Whole Blood 299 mg/dL (75-99)
[2022-03-11] MEDS: BENZOCAINE/MENTHOL LOZENG 1 EACH LOZENGE MUCOUS MEM PRN (21:12)
[2022-03-11] MEDS: cloNIDine HCL 0.1 MG TAB PO SCH (21:12)
[2022-03-11] MEDS: QUEtiapine 100 MG TAB PO PRN (23:25)
[2022-03-12] MEDS: methylPREDNISolone SOD SUCCI 40 MG/ML 1 ML VIAL IV SCH ×3 (04:51→21:19)
[2022-03-12 06:07] LABS: Glucose,Whole Blood 333 mg/dL (75-99)
[2022-03-12] MEDS: INSULIN DETEMIR (LEVEMIR) 100 UNIT/ML SYR SQ SCH (06:28)
[2022-03-12] MEDS: LEVOTHYROXINE 125 MCG TAB PO SCH (06:28)
[2022-03-12] MEDS: INSULIN ASPART (NovoLOG) 100 UNIT/ML VIAL SQ SCH ×3 (06:29→17:32)
[2022-03-12] MEDS: FORMOTEROL FUMARATE 20 MCG/2 ML NEBU INHALATION SCH ×2 (07:59→20:01)
[2022-03-12] MEDS: BUDESONIDE 1 MG/2 ML NEBU INHALATION SCH ×2 (07:59→20:01)
[2022-03-12] MEDS: IPRATROPIUM-ALBUTEROL 3 ML NEB INHALATION SCH ×4 (07:59→20:01)
[2022-03-12] MEDS ORDERED: ENOXAPARIN 30 MG/0.3 ML SYRINGE SQ SCH (09:00)
[2022-03-12] MEDS ORDERED: CEFDINIR 300 MG CAP PO SCH (09:00)
[2022-03-12] MEDS: guaiFENesin 600 MG TABLET.ER PO SCH ×4 (09:02→21:19)
[2022-03-12] MEDS: cloNIDine HCL 0.1 MG TAB PO SCH ×2 (09:03→21:19)
[2022-03-12] MEDS: INSULN ASP PRT/INSULIN ASPART 100 UNIT/ML 10 ML VIAL SQ SCH ×2 (09:03→21:20)
[2022-03-12] MEDS: PANTOPRAZOLE 40 MG TABLET PO SCH (09:04)
[2022-03-12] MEDS: GABAPENTIN 400 MG CAP PO SCH ×3 (09:04→21:19)
[2022-03-12] MEDS: NICOTINE 14MG/24HR PATCH TRANSDERM SCH (09:04)
[2022-03-12 12:02] LABS: Glucose,Whole Blood 294 mg/dL (75-99)
[2022-03-12] MEDS: SODIUM CHLORIDE 0.9% 1,000 ML IV SCH ×2 (13:00→21:34)
[2022-03-12] MEDS: BENZOCAINE/MENTHOL LOZENG 1 EACH LOZENGE MUCOUS MEM PRN (13:37)
[2022-03-12] MEDS ORDERED: INSULIN NPH 300 UNIT/3 ML VIAL SQ SCH (16:00)
--- NOTE | 2022-03-12 16:00 | P.PN ---
Progress Note - Text Progress Note Date: 03/12/22 Chief Complaint: Cough This is a 57-year-old patient who follows with Dr. Vargas. Patient had gone on to [facility] yesterday as she was having significant cough. He said long- standing smoker. Patient had been increasing cough with yellow sputum for at least 7 days. Also had a fever. Poor appetite. Normally has a bowel movement every 3 days. Was getting dizzy lightheaded. When she went down to med [employer] she was told her blood pressure was low was sent down to the ER. Had a blood pressure down to the 73 x 52 in the ER. Patient's antihypertensives were held. Given IV fluids. This morning patient still short of breath coughing wheezing. Tired rundown. Appetite started to feel a little bit better. Patient also wheezing quite a bit. Admitted with severe COPD exacerbation, acute tracheal bronchitis, acute kidney injury and symptomatically hypertension. Started on DuoNeb, IV Solu-Medrol, IV fluids. Dose of Neurontin cutback in view of kidney injury. March 12: Still short of breath. Some cough. Eating a bit better. Tired. Wheezing. Bronchodilators, steroids. Omnicef Active Medications Acetaminophen (Acetaminophen Tab 325 Mg Tab) 650 mg PO Q6HR PRN PRN Reason: Mild Pain or Fever > 100.5 Last Admin: 03/11/22 21:16 Dose: 650 mg Documented by: Albuterol Sulfate (Albuterol Nebulized 2.5 Mg/3 Ml) 2.5 mg INHALATION RT-QID PRN PRN Reason: Shortness Of Breath Albuterol/Ipratropium (Ipratropium-Albuterol 3 Ml Neb) 3 ml INHALATION RT-QID [facility] Last Admin: 03/12/22 15:31 Dose: 3 ml Documented by: Benzocaine/Menthol (Benzocaine/Menthol Lozeng 1 Each Lozenge) 1 each MUCOUS MEM Q3HR PRN PRN Reason: Cough Last Admin: 03/12/22 13:37 Dose: 1 each Documented by: Budesonide (Budesonide 1 Mg/2 Ml Nebu) 1 mg INHALATION RT-BID [facility] Last Admin: 03/12/22 07:59 Dose: 1 mg Documented by: Calcium Carbonate/Glycine (Calcium Carbonate 500 Mg Chewable) 1,000 mg PO Q4HR PRN PRN Reason: Dyspepsia Cefdinir (Cefdinir 300 Mg Cap) 300 mg PO DAILY [facility]; Protocol Last Admin: 03/12/22 09:04 Dose: 300 mg Documented by: Clonidine (Clonidine Hcl 0.1 Mg Tab) 0.1 mg PO BID [facility] Last Admin: 03/12/22 09:03 Dose: 0.1 mg Documented by: Cyclobenzaprine HCl (Cyclobenzaprine 10 Mg Tab) 10 mg PO DAILY PRN PRN Reason: Muscle Spasm Enoxaparin Sodium (Enoxaparin 30 Mg/0.3 Ml Syringe) 30 mg SQ DAILY [facility] Last Admin: 03/12/22 09:02 Dose: 30 mg Documented by: Formoterol Fumarate (Formoterol Fumarate 20 Mcg/2 Ml Nebu) 20 mcg INHALATION RT-BID [facility] Last Admin: 03/12/22 07:59 Dose: Not Given Documented by: Gabapentin (Gabapentin 400 Mg Cap) 400 mg PO TID [facility] Last Admin: 03/12/22 09:04 Dose: 400 mg Documented by: Guaifenesin (Guaifenesin 600 Mg Tablet.Er) 600 mg PO QID [facility] Last Admin: 03/12/22 13:33 Dose: 600 mg Documented by: Sodium Chloride (Saline 0.9%) 1,000 mls @ 100 mls/hr IV .Q10H [facility] Last Admin: 03/11/22 21:13 Dose: 100 mls/hr Documented by: Insulin Aspart (Insuln Asp Prt/Insulin Aspart 100 Unit/Ml 10 Ml Vial) 12 unit SQ BID [facility] Last Admin: 03/12/22 09:03 Dose: 12 unit Documented by: Insulin Aspart (Insulin Aspart (Novolog) 100 Unit/Ml Vial) 0 unit SQ AC-TID [facility]; Protocol Last Admin: 03/12/22 13:32 Dose: 8 unit Documented by: Insulin Detemir (Insulin Detemir (Levemir) 100 Unit/Ml Syr) 18 unit SQ DAILY@0700 [facility] Last Admin: 03/12/22 06:28 Dose: 18 unit Documented by: Lactulose (Lactulose 20 Gm/30 Ml Cup) 20 gm PO DAILY PRN PRN Reason: Constipation Levothyroxine Sodium (Levothyroxine 125 Mcg Tab) 125 mcg PO DAILY@0630 [facility] Last Admin: 03/12/22 06:28 Dose: 125 mcg Documented by: Lorazepam (Lorazepam 0.5 Mg Tab) 0.5 mg PO Q6HR PRN PRN Reason: Anxiety Methylprednisolone Sodium Succinate (Methylprednisolone Sod Succi 40 Mg/Ml 1 Ml Vial) 40 mg IV Q8H [facility] Last Admin: 03/12/22 11:39 Dose: 40 mg Documented by: Naloxone HCl (Naloxone 0.4 Mg/Ml 1 Ml Vial) 0.2 mg IV Q2M PRN PRN Reason: Opioid Reversal Nicotine (Nicotine 14mg/24hr Patch) 1 patch TRANSDERM DAILY [facility] Last Admin: 03/12/22 09:04 Dose: 1 patch Documented by: Pantoprazole Sodium (Pantoprazole 40 Mg Tablet) 40 mg PO DAILY [facility] Last Admin: 03/12/22 09:04 Dose: 40 mg Documented by: Prochlorperazine Maleate (Prochlorperazine 5 Mg Tab) 5 mg PO Q8HR PRN PRN Reason: Nausea And Vomiting Quetiapine Fumarate (Quetiapine 100 Mg Tab) 100 mg PO HS PRN PRN Reason: Insomnia Last Admin: 03/11/22 23:25 Dose: 100 mg Documented by: Ropinirole HCl (Ropinirole Hcl 0.25 Mg Tab) 0.25 mg PO HS PRN PRN Reason: WITH SEROQUEL Last Admin: 03/11/22 21:12 Dose: 0.25 mg Documented by: Temazepam (Temazepam 15 Mg Cap) 15 mg PO HS PRN PRN Reason: Insomnia Past medical history to include: COPD, diabetes, GERD, osteoarthritis, seizure disorder, hypothyroid, multiple sclerosis, diabetic peripheral neuropathy, optic neuritis, decreased vision in the eyes,; this problem, restless leg syndrome, colon polyps, anxiety depression Social history: Patient started smoking in 1978. Half a pack a day. More so in the past. She was drinking heavy alcohol up to about 5 years ago. This the room [employer]. Occasionally does marijuana. Does use a cane Family history: Mother of heart attack. Physical examination: VITAL SIGNS: 97.9, 85, 20, 112 a 68, 98% room air GENERAL: reclining bed, awake, less short of breath coughing. EYES: Pupils equal. Conjunctiva normal. HEENT: External appearance of nose and ears normal, oral cavity grossly normal. NECK: JVD not raised; masses not palpable. HEART: First and second heart sounds are normal; no edema. LUNGS: Respiratory rate increased; diminished breath sounds prolonged expiration, ABDOMEN: Soft, nontender, liver spleen not palpable, no masses palpable. PSYCH: [Alert and oriented x3; mood and affect anxious . MUSCULOSKELETAL:No Clubbing/cyanosis;muscles-grossly intact. INVESTIGATIONS, reviewed in the clinical context: White count 10.9 hemoglobin 12.7 platelets 306 sodium 131 potassium 3.9 BUN 19 creatinine 1.86 Glucose 294 lactic acid 1.3 proBNP 394 troponin I less than 0.012 EKG tracing personally reviewed by me-normal sinus rhythm Chest x-ray film personally reviewed by me-no obvious infiltrate. Assessment and plan: -Acute severe COPD exacerbation in a current smoker from acute tracheal bronchitis: Slow to respond DuoNeb 4 times a day. IV Solu-Medrol. Nebulized Pulmicort andperforomist -Acute tracheal bronchitis Omnicef 300 mg twice a day. Sputum for Gram stain and culture -Chronic nicotine dependence, cigarette smoker Nicotine patch -Symptomatic hypotension from poor oral intake and acute kidney injury on presentation: Slow improvement Hold patient's losartan and hydrochlorothiazide. Cutback Catapres 0.1 mg twice a day -Acute kidney injury, likely prerenal. She has lost creatinine in our records show 0.76 on October 2020. IV fluids. Stop NSAIDs. Follow labs -Hyponatremia from decreased food intake. Patient increase oral intake. -Diabetes mellitus type 2, chronically on insulin. Uncontrolled with hyperglycemia Increase Levemir to 30 units. Follow Accu-Cheks closely. -Diabetic peripheral neuropathy Neurontin to 400 mg 3 times a day in view of renal failure. -Hypothyroid Synthroid 125 g a -GERD Protonix 40 mg a -Restless leg syndrome requip 0.25 mg every daily at bedtime Continue IV Solu-Medrol. Nebulized bronchodilators and long-acting beta agonist. DuoNeb. Catapres. Increase Levemir to 30 units in the morning. Repeat labs. Activity is started.
[2022-03-12 16:46] LABS: Glucose,Whole Blood 295 mg/dL (75-99)
[2022-03-12] MEDS: LORazepam 0.5 MG TAB PO PRN ×2 (17:31→23:57)
[2022-03-12 20:42] LABS: Glucose,Whole Blood 216 mg/dL (75-99)
[2022-03-12] MEDS: QUEtiapine 100 MG TAB PO PRN (22:16)
[2022-03-13] MEDS: methylPREDNISolone SOD SUCCI 40 MG/ML 1 ML VIAL IV SCH ×3 (05:21→20:46)
[2022-03-13] MEDS: SODIUM CHLORIDE 0.9% 1,000 ML IV SCH ×2 (05:22→17:01)
[2022-03-13] MEDS: BENZOCAINE/MENTHOL LOZENG 1 EACH LOZENGE MUCOUS MEM PRN (05:22)
[2022-03-13 06:22] LABS: Glucose,Whole Blood 312 mg/dL (75-99)
[2022-03-13] MEDS: LEVOTHYROXINE 125 MCG TAB PO SCH (06:38)
[2022-03-13] MEDS: INSULIN DETEMIR (LEVEMIR) 100 UNIT/ML SYR SQ SCH (06:38)
[2022-03-13] MEDS: INSULIN ASPART (NovoLOG) 100 UNIT/ML VIAL SQ SCH ×3 (06:38→16:58)
[2022-03-13 08:00] LABS: Basophils % (A) 0 %; Eosinophils # (A) 0.1 k/uL (0-0.7); Eosinophils % (A) 0 %; HCT 38.2 % (34.0-46.0); HGB 12.1 gm/dL (11.4-16.0); Lymphocytes # (A) 0.7 k/uL (1.0-4.8); Lymphocytes % (A) 6 %; MCH 32.9 pg (25.0-35.0); MCHC 31.7 g/dL (31.0-37.0); MCV 103.7 fL (80.0-100.0); Macrocytosis Slight; Mean Platelet Volume 10.2; Monocytes # (A) 0.3 k/uL (0-1.0); Monocytes % (A) 3 %; Neutrophils # (A) 10.5 k/uL (1.3-7.7); Neutrophils % (A) 91 %; Platelet Count 318 k/uL (150-450); RBC 3.69 m/uL (3.80-5.40); RDW 13.4 % (11.5-15.5); WBC 11.5 k/uL (3.8-10.6)
[2022-03-13] MEDS: BUDESONIDE 1 MG/2 ML NEBU INHALATION SCH ×2 (08:06→19:53)
[2022-03-13] MEDS: FORMOTEROL FUMARATE 20 MCG/2 ML NEBU INHALATION SCH ×2 (08:06→19:53)
[2022-03-13] MEDS: IPRATROPIUM-ALBUTEROL 3 ML NEB INHALATION SCH ×4 (08:06→19:52)
[2022-03-13 08:13] LABS: African American GFR (CKD) >90 (>60 ml/min/1.73 sqM); Anion Gap 6 mmol/L; Blood Urea Nitrogen 17 mg/dL (7-17); Carbon Dioxide 22 mmol/L (22-30); Chloride 106 mmol/L (98-107); Glucose 329 mg/dL (74-99); Non-African American GFR(CKD) 84 (>60 ml/min/1.73 sqM); Potassium 4.3 mmol/L (3.5-5.1); Sodium 134 mmol/L (137-145)
[2022-03-13] MEDS: PANTOPRAZOLE 40 MG TABLET PO SCH (09:24)
[2022-03-13] MEDS: guaiFENesin 600 MG TABLET.ER PO SCH ×4 (09:24→20:46)
[2022-03-13] MEDS: cloNIDine HCL 0.1 MG TAB PO SCH ×2 (09:24→20:39)
[2022-03-13] MEDS: ENOXAPARIN 40 MG/0.4 ML SYRINGE SQ SCH (09:25)
[2022-03-13] MEDS: CEFDINIR 300 MG CAP PO SCH ×2 (09:25→20:46)
[2022-03-13] MEDS: GABAPENTIN 400 MG CAP PO SCH ×3 (09:26→20:46)
[2022-03-13] MEDS: INSULN ASP PRT/INSULIN ASPART 100 UNIT/ML 10 ML VIAL SQ SCH ×2 (09:26→20:40)
[2022-03-13] MEDS: NICOTINE 14MG/24HR PATCH TRANSDERM SCH (09:28)
[2022-03-13 11:39] LABS: Glucose,Whole Blood 342 mg/dL (75-99)
[2022-03-13 16:43] LABS: Glucose,Whole Blood 220 mg/dL (75-99)
--- NOTE | 2022-03-13 16:56 | P.PN ---
Progress Note - Text Progress Note Date: 03/13/22 Chief Complaint: Cough This is a 57-year-old patient who follows with Dr. Vargas. Patient had gone on to [facility] yesterday as she was having significant cough. He said long- standing smoker. Patient had been increasing cough with yellow sputum for at least 7 days. Also had a fever. Poor appetite. Normally has a bowel movement every 3 days. Was getting dizzy lightheaded. When she went down to med [employer] she was told her blood pressure was low was sent down to the ER. Had a blood pressure down to the 73 x 52 in the ER. Patient's antihypertensives were held. Given IV fluids. This morning patient still short of breath coughing wheezing. Tired rundown. Appetite started to feel a little bit better. Patient also wheezing quite a bit. Admitted with severe COPD exacerbation, acute tracheal bronchitis, acute kidney injury and symptomatically hypertension. Started on DuoNeb, IV Solu-Medrol, IV fluids. Dose of Neurontin cutback in view of kidney injury. March 12: Still short of breath. Some cough. Eating a bit better. Tired. Wheezing. Bronchodilators, steroids. Omnicef March 13: Breathing a bit better. Some wheezing. Eating better. On bronchitis steroids. Patient told to increase activity. Blood culture felt to be contaminant. Active Medications Acetaminophen (Acetaminophen Tab 325 Mg Tab) 650 mg PO Q6HR PRN PRN Reason: Mild Pain or Fever > 100.5 Last Admin: 03/11/22 21:16 Dose: 650 mg Documented by: Albuterol Sulfate (Albuterol Nebulized 2.5 Mg/3 Ml) 2.5 mg INHALATION RT-QID PRN PRN Reason: Shortness Of Breath Albuterol/Ipratropium (Ipratropium-Albuterol 3 Ml Neb) 3 ml INHALATION RT-QID [facility] Last Admin: 03/13/22 11:30 Dose: Not Given Documented by: Benzocaine/Menthol (Benzocaine/Menthol Lozeng 1 Each Lozenge) 1 each MUCOUS MEM Q3HR PRN PRN Reason: Cough Last Admin: 03/13/22 05:22 Dose: 1 each Documented by: Budesonide (Budesonide 1 Mg/2 Ml Nebu) 1 mg INHALATION RT-BID [facility] Last Admin: 03/13/22 08:06 Dose: Not Given Documented by: Calcium Carbonate/Glycine (Calcium Carbonate 500 Mg Chewable) 1,000 mg PO Q4HR PRN PRN Reason: Dyspepsia Cefdinir (Cefdinir 300 Mg Cap) 300 mg PO Q12HR [facility]; Protocol Last Admin: 03/13/22 09:25 Dose: 300 mg Documented by: Clonidine (Clonidine Hcl 0.1 Mg Tab) 0.1 mg PO BID [facility] Last Admin: 03/13/22 09:24 Dose: 0.1 mg Documented by: Cyclobenzaprine HCl (Cyclobenzaprine 10 Mg Tab) 10 mg PO DAILY PRN PRN Reason: Muscle Spasm Enoxaparin Sodium (Enoxaparin 40 Mg/0.4 Ml Syringe) 40 mg SQ DAILY [facility] Last Admin: 03/13/22 09:25 Dose: 40 mg Documented by: Formoterol Fumarate (Formoterol Fumarate 20 Mcg/2 Ml Nebu) 20 mcg INHALATION RT-BID [facility] Last Admin: 03/13/22 08:06 Dose: Not Given Documented by: Gabapentin (Gabapentin 400 Mg Cap) 400 mg PO TID [facility] Last Admin: 03/13/22 09:26 Dose: 400 mg Documented by: Guaifenesin (Guaifenesin 600 Mg Tablet.Er) 600 mg PO QID [facility] Last Admin: 03/13/22 12:14 Dose: 600 mg Documented by: Sodium Chloride (Saline 0.9%) 1,000 mls @ 100 mls/hr IV .Q10H [facility] Last Admin: 03/13/22 05:22 Dose: 100 mls/hr Documented by: Insulin Aspart (Insuln Asp Prt/Insulin Aspart 100 Unit/Ml 10 Ml Vial) 12 unit SQ BID [facility] Last Admin: 03/13/22 09:26 Dose: 12 unit Documented by: Insulin Aspart (Insulin Aspart (Novolog) 100 Unit/Ml Vial) 0 unit SQ AC-TID [facility]; Protocol Last Admin: 03/13/22 12:17 Dose: 8 unit Documented by: Insulin Detemir (Insulin Detemir (Levemir) 100 Unit/Ml Syr) 30 unit SQ DAILY@0700 [facility] Last Admin: 03/13/22 06:38 Dose: 30 unit Documented by: Lactulose (Lactulose 20 Gm/30 Ml Cup) 20 gm PO DAILY PRN PRN Reason: Constipation Levothyroxine Sodium (Levothyroxine 125 Mcg Tab) 125 mcg PO DAILY@0630 [facility] Last Admin: 03/13/22 06:38 Dose: 125 mcg Documented by: Lorazepam (Lorazepam 0.5 Mg Tab) 0.5 mg PO Q6HR PRN PRN Reason: Anxiety Last Admin: 03/12/22 23:57 Dose: 0.5 mg Documented by: Methylprednisolone Sodium Succinate (Methylprednisolone Sod Succi 40 Mg/Ml 1 Ml Vial) 40 mg IV Q8H [facility] Last Admin: 03/13/22 12:14 Dose: 40 mg Documented by: Naloxone HCl (Naloxone 0.4 Mg/Ml 1 Ml Vial) 0.2 mg IV Q2M PRN PRN Reason: Opioid Reversal Nicotine (Nicotine 14mg/24hr Patch) 1 patch TRANSDERM DAILY [facility] Last Admin: 03/13/22 09:28 Dose: Not Given Documented by: Pantoprazole Sodium (Pantoprazole 40 Mg Tablet) 40 mg PO DAILY [facility] Last Admin: 03/13/22 09:24 Dose: 40 mg Documented by: Prochlorperazine Maleate (Prochlorperazine 5 Mg Tab) 5 mg PO Q8HR PRN PRN Reason: Nausea And Vomiting Quetiapine Fumarate (Quetiapine 100 Mg Tab) 100 mg PO HS PRN PRN Reason: Insomnia Last Admin: 03/12/22 22:16 Dose: 100 mg Documented by: Ropinirole HCl (Ropinirole Hcl 0.25 Mg Tab) 0.25 mg PO HS PRN PRN Reason: WITH SEROQUEL Last Admin: 03/12/22 21:19 Dose: 0.25 mg Documented by: Temazepam (Temazepam 15 Mg Cap) 15 mg PO HS PRN PRN Reason: Insomnia Past medical history to include: COPD, diabetes, GERD, osteoarthritis, seizure disorder, hypothyroid, multiple sclerosis, diabetic peripheral neuropathy, optic neuritis, decreased vision in the eyes,; this problem, restless leg syndrome, colon polyps, anxiety depression Social history: Patient started smoking in 1978. Half a pack a day. More so in the past. She was drinking heavy alcohol up to about 5 years ago. This the room [facility]. Occasionally does marijuana. Does use a cane Family history: Mother of heart attack. Physical examination: VITAL SIGNS: 98.1, 87, 16, 99/61, 97% room air GENERAL: Sitting up in bed, awake, less short of breath EYES: Pupils equal. Conjunctiva normal. HEENT: External appearance of nose and ears normal, oral cavity grossly normal. NECK: JVD not raised; masses not palpable. HEART: First and second heart sounds are normal; no edema. LUNGS: Respiratory rate increased; diminished breath sounds ABDOMEN: Soft, nontender, liver spleen not palpable, no masses palpable. PSYCH: [Alert and oriented x3; mood and affect anxious . MUSCULOSKELETAL:No Clubbing/cyanosis;muscles-grossly intact. INVESTIGATIONS, reviewed in the clinical context: March 13: White count 11.5 hemoglobin 12.1 potassium 4.3 creatinine 0.78. Accu- Chek 342, 220 Blood culture: diphtheroid species. White count 10.9 hemoglobin 12.7 platelets 306 sodium 131 potassium 3.9 BUN 19 creatinine 1.86 Glucose 294 lactic acid 1.3 proBNP 394 troponin I less than 0.012 EKG tracing personally reviewed by me-normal sinus rhythm Chest x-ray film personally reviewed by me-no obvious infiltrate. Assessment and plan: -Acute severe COPD exacerbation in a current smoker from acute tracheal bronchitis: Started responding DuoNeb 4 times a day. IV Solu-Medrol. Nebulized Pulmicort andperforomist -Acute tracheal bronchitis Omnicef 300 mg twice a day. Sputum for Gram stain and culture -Chronic nicotine dependence, cigarette smoker Nicotine patch -Symptomatic hypotension from poor oral intake and acute kidney injury on presentation: Slow improvement Resume losartan 100 mg daily at bedtime. Catapres 0.1 mg twice a day -Acute kidney injury, likely prerenal. She has lost creatinine in our records show 0.76 on October 2020. IV fluids. Stop NSAIDs. Improved -Hyponatremia from decreased food intake. Patient increase oral intake. -Diabetes mellitus type 2, chronically on insulin. Uncontrolled with hyperglycemia Levemir to 30 units. Follow Accu-Cheks closely. -Diabetic peripheral neuropathy Neurontin to 400 mg 3 times a day in view of renal failure. -Hypothyroid Synthroid 125 g a -GERD Protonix 40 mg a -Restless leg syndrome requip 0.25 mg every daily at bedtime Continue Solu-Medrol. Nebulized bronchodilators and long-acting beta agonist. DuoNeb. Catapres. Increase activity. Hopefully home tomorrow. Start losartan 100 mg daily at bedtime starting today
[2022-03-13 20:25] LABS: Glucose,Whole Blood 230 mg/dL (75-99)
[2022-03-13] MEDS: QUEtiapine 100 MG TAB PO PRN (20:52)
[2022-03-13] MEDS ORDERED: LOSARTAN 50 MG TAB PO SCH (21:00)
[2022-03-14 00:15] VITALS: RESP 18
[2022-03-14 06:40] LABS: Glucose,Whole Blood 293 mg/dL (75-99)
[2022-03-14] MEDS: INSULIN DETEMIR (LEVEMIR) 100 UNIT/ML SYR SQ SCH (07:03)
[2022-03-14] MEDS: INSULIN ASPART (NovoLOG) 100 UNIT/ML VIAL SQ SCH (07:03)
[2022-03-14] MEDS: LEVOTHYROXINE 125 MCG TAB PO SCH (07:03)
[2022-03-14] MEDS: BUDESONIDE 1 MG/2 ML NEBU INHALATION SCH (07:29)
[2022-03-14] MEDS: FORMOTEROL FUMARATE 20 MCG/2 ML NEBU INHALATION SCH (07:29)
[2022-03-14] MEDS: IPRATROPIUM-ALBUTEROL 3 ML NEB INHALATION SCH ×2 (07:29→10:36)
[2022-03-14] MEDS ORDERED: predniSONE 20 MG TAB PO SCH (09:00)
[2022-03-14] MEDS: GABAPENTIN 400 MG CAP PO SCH (09:14)
[2022-03-14] MEDS: PANTOPRAZOLE 40 MG TABLET PO SCH (09:14)
[2022-03-14] MEDS: guaiFENesin 600 MG TABLET.ER PO SCH (09:14)
[2022-03-14] MEDS: CEFDINIR 300 MG CAP PO SCH (09:15)
[2022-03-14] MEDS: INSULN ASP PRT/INSULIN ASPART 100 UNIT/ML 10 ML VIAL SQ SCH (09:15)
[2022-03-14] MEDS: NICOTINE 14MG/24HR PATCH TRANSDERM SCH (09:15)
[2022-03-14] MEDS: ENOXAPARIN 40 MG/0.4 ML SYRINGE SQ SCH (09:16)
[2022-03-14 10:29] VITALS: BP 129/59; TEMP 97.8
[2022-03-14 10:39] VITALS: PULSE 84
[2022-03-14 11:51] LABS: Glucose,Whole Blood 183 mg/dL (75-99)
--- NOTE | 2022-03-14 20:31 | P.DS ---
Providers Date of admission: 03/10/22 19:10 Expected date of discharge: 03/14/22 Attending physician: Azeem Keen Primary care physician: Ryan Pino [facility] Course: Chief Complaint: Cough This is a 57-year-old patient who follows with Dr. Pino. [facility] as she was having significant cough. He said long- standing smoker. Patient had been increasing cough with yellow sputum for at least 7 days. Also had a fever. Poor appetite. Normally has a bowel movement every 3 days. Was getting dizzy lightheaded. When [facility] she was told her blood pressure was low was sent down to the ER. Had a blood pressure down to the 73 x 52 in the ER. Patient's antihypertensives were held. Given IV fluids. This morning patient still short of breath coughing wheezing. Tired rundown. Appetite started to feel a little bit better. Patient also wheezing quite a bit. Admitted with severe COPD exacerbation, acute tracheal bronchitis, acute kidney injury and symptomatically hypertension. Started on DuoNeb, IV Solu-Medrol, IV fluids. Dose of Neurontin cutback in view of kidney injury. Omnicef. Today: Patient is responded well. Doing better. Up and about. Consult about smoking again. Questions answered. Complete a short course of Omnicef. Start Symbicort 1604.5 twice a day. Steroid taper. Dose of Neurontin has been cutback. Discussion and discharge planning more than 35 minutes Past medical history to include: COPD, diabetes, GERD, osteoarthritis, seizure disorder, hypothyroid, multiple sclerosis, diabetic peripheral neuropathy, optic neuritis, decreased vision in the eyes,; this problem, restless leg syndrome, colon polyps, anxiety depression Social history: Patient started smoking in 1978. Half a pack a day. More so in the past. She was drinking heavy alcohol up to about 5 years ago. This the room [facility]. Occasionally does marijuana. Does use a cane Family history: Mother of heart attack. Physical examination: VITAL SIGNS: 97.8, 91, 18, 1 29 x 59, 98% room air GENERAL: Sitting up in bed, awake, EYES: Pupils equal. Conjunctiva normal. HEENT: External appearance of nose and ears normal, oral cavity grossly normal. NECK: JVD not raised; masses not palpable. HEART: First and second heart sounds are normal; no edema. LUNGS: Respiratory rate normal; diminished breath sounds ABDOMEN: Soft, nontender, liver spleen not palpable, no masses palpable. PSYCH: [Alert and oriented x3; mood and affect anxious . MUSCULOSKELETAL:No Clubbing/cyanosis;muscles-grossly intact. INVESTIGATIONS, reviewed in the clinical context: March 13: White count 11.5 hemoglobin 12.1 potassium 4.3 creatinine 0.78. Accu- Chek 342, 220 Blood culture: diphtheroid species. White count 10.9 hemoglobin 12.7 platelets 306 sodium 131 potassium 3.9 BUN 19 creatinine 1.86 Glucose 294 lactic acid 1.3 proBNP 394 troponin I less than 0.012 EKG tracing personally reviewed by me-normal sinus rhythm Chest x-ray film personally reviewed by me-no obvious infiltrate. Assessment and plan: -Acute severe COPD exacerbation in a current smoker from acute tracheal bronchitis: Improved Symbicort 1654.52 puffs twice a day. Albuterol when necessary -Acute tracheal bronchitis Omnicef 300 mg twice a day. -Chronic nicotine dependence, cigarette smoker Nicotine patch -Symptomatic hypotension from poor oral intake and acute kidney injury on presentation: Improved/essential hypertension losartan/HCTZ 100 mg daily at bedtime. Catapres 0.1 mg twice a day -Acute kidney injury, likely prerenal. She has lost creatinine in our records show 0.76 on October 2020. IV fluids. Stop NSAIDs. Improved -Hyponatremia from decreased food intake. Patient increase oral intake. -Diabetes mellitus type 2, chronically on insulin. Uncontrolled with hyperglycemia Resume home dose of insulin. -Diabetic peripheral neuropathy Decrease Neurontin to 400 mg 3 times a day -Hypothyroid Synthroid 125 g a -GERD Protonix 40 mg a -Restless leg syndrome requip 0.25 mg every daily at bedtime Disposition: Home Plan - Discharge Summary Discharge Rx Participant: No New Discharge Prescriptions: New Cefdinir [Omnicef] 300 mg PO Q12HR #6 cap Budesonide-Formot 160-4.5 Mcg [Symbicort 160-4.5 Mcg Inhaler] 1 puff INHALATION BID #10.2 gm cloNIDine HCL [Catapres] 0.1 mg PO BID #60 tab Nicotine 14Mg/24Hr Patch [Habitrol] 1 patch TRANSDERM DAILY #14 patch predniSONE 10 mg PO DAILY #30 tab Continue Insulin NPH Hum/Reg Insulin Hm [humuLIN 70/30 Kwikpen] 12 unit SQ BID-W/MEALS Losartan/Hydrochlorothiazide [Losartan-Hctz 100-12.5 mg Tab] 1 tab PO DAILY QUEtiapine [SEROquel] 100 mg PO HS PRN PRN Reason: Insomnia Albuterol Sulfate [Ventolin HFA] 2 puff INHALATION RT-QID PRN PRN Reason: Shortness Of Breath Pantoprazole [Protonix] 40 mg PO DAILY #20 tablet. rOPINIRole HCL [Requip] 0.25 mg PO HS PRN PRN Reason: WITH SEROQUEL Levothyroxine Sodium [Synthroid] 125 mcg PO DAILY Cyclobenzaprine [Flexeril] 10 mg PO DAILY PRN PRN Reason: Muscle Spasm Changed Gabapentin [Neurontin] 400 mg PO TID #0 Insulin Glargine,Hum.rec.anlog [Lantus Solostar Pen] 20 unit SQ DAILY #0 Discontinued cloNIDine HCL [Catapres] 0.3 mg PO HS cloNIDine HCL [Catapres] 0.3 mg PO DAILY PRN PRN Reason: Anxiety No Action Ibuprofen [Motrin] 800 mg PO TID Discharge Medication List Insulin NPH Hum/Reg Insulin Hm [humuLIN 70/30 Kwikpen] 12 unit SQ BID-W/MEALS 11/10/16 [History] Ibuprofen [Motrin] 800 mg PO TID 08/08/20 [History] Losartan/Hydrochlorothiazide [Losartan-Hctz 100-12.5 mg Tab] 1 tab PO DAILY 08/08/20 [History] QUEtiapine [SEROquel] 100 mg PO HS PRN 08/08/20 [History] Albuterol Sulfate [Ventolin HFA] 2 puff INHALATION RT-QID PRN 11/03/20 [History] Pantoprazole [Protonix] 40 mg PO DAILY #20 tablet. 11/03/20 [Rx] Cyclobenzaprine [Flexeril] 10 mg PO DAILY PRN 03/10/22 [History] Levothyroxine Sodium [Synthroid] 125 mcg PO DAILY 03/10/22 [History] rOPINIRole HCL [Requip] 0.25 mg PO HS PRN 03/10/22 [History] Budesonide-Formot 160-4.5 Mcg [Symbicort 160-4.5 Mcg Inhaler] 1 puff INHALATION BID #10.2 gm 03/14/22 [Rx] Cefdinir [Omnicef] 300 mg PO Q12HR #6 cap 03/14/22 [Rx] Gabapentin [Neurontin] 400 mg PO TID #0 03/14/22 [Rx] Insulin Glargine,Hum.rec.anlog [Lantus Solostar Pen] 20 unit SQ DAILY #0 03/14/22 [Rx] Nicotine 14Mg/24Hr Patch [Habitrol] 1 patch TRANSDERM DAILY #14 patch 03/14/22 [Rx] cloNIDine HCL [Catapres] 0.1 mg PO BID #60 tab 03/14/22 [Rx] predniSONE 10 mg PO DAILY #30 tab 03/14/22 [Rx] Follow up Appointment(s)/Referral(s): Ryan Pino MD [Primary Care Provider] - 1-2 days Patient Instructions/Handouts: Hypotension (DC) Discharge Disposition: HOME SELF-CARE
== END 2022-03-14 13:24 | disposition home or self-care (01) | DRG 191 ==
LOC: EC 17:19 → 3SCARD 19:10
PROVIDERS: ADMIT Hospitalist; ATTEND Hospitalist
DX: J44.0 Chronic obstructive pulmonary disease with (acute) lower respiratory infection (principal); N17.9 Acute kidney failure, unspecified; E87.1 Hypo-osmolality and hyponatremia; H46.9 Unspecified optic neuritis; Z79.890 Hormone replacement therapy; E03.9 Hypothyroidism, unspecified; E11.42 Type 2 diabetes mellitus with diabetic polyneuropathy; J20.9 Acute bronchitis, unspecified; E11.65 Type 2 diabetes mellitus with hyperglycemia; F12.90 Cannabis use, unspecified, uncomplicated; F17.210 Nicotine dependence, cigarettes, uncomplicated; F41.8 Other specified anxiety disorders; G25.81 Restless legs syndrome; G35 Multiple sclerosis; G40.909 Epilepsy, unspecified, not intractable, without status epilepticus; G47.00 Insomnia, unspecified; I95.9 Hypotension, unspecified; I10 Essential (primary) hypertension; J44.1 Chronic obstructive pulmonary disease with (acute) exacerbation; K21.9 Gastro-esophageal reflux disease without esophagitis; K59.00 Constipation, unspecified; K63.5 Polyp of colon; M19.90 Unspecified osteoarthritis, unspecified site; Z79.4 Long term (current) use of insulin; Z79.899 Other long term (current) drug therapy; Z82.49 Family history of ischemic heart disease and other diseases of the circulatory system; Z86.010 Personal history of colon polyps; Z98.51 Tubal ligation status
CPT/HCPCS: 36415; 71046; 80048; 80053; 83605; 83735; 83880; 84484; 85025; 85610; 85730; 87040; 87070; 87205; 93005; 94640; 94760; 96361; 96372; 96374; 99285

== ENCOUNTER 2022-04-21 21:18 | Emergency (ER) | payer MEDICARE, OTHER ==
[2022-04-21 21:41] VITALS: TEMP 97.8
[2022-04-21] MEDS ORDERED: methylPREDNISolone SOD SUCCI 125 MG/2 ML VIAL IM STA (21:42)
[2022-04-21] MEDS ORDERED: IPRATROPIUM-ALBUTEROL 3 ML NEB INHALATION STA (21:42)
[2022-04-21] MEDS ORDERED: BENZONATATE 100 MG CAP PO STA (21:43)
--- NOTE | 2022-04-21 21:47 | ED ---
SOB HPI - General Chief Complaint: Upper Respiratory Infection Stated Complaint: MARY Time Seen by Provider: 04/21/22 21:33 Source: patient, RN notes reviewed Mode of arrival: EMS Limitations: no limitations - History of Present Illness Initial Comments: This is a pleasant 57-year-old diabetic female with a history of COPD who presents to emergency department with a cough productive for clear sputum which is going on for 2 weeks. He states that the cough has been quite severe. Patient states keep her up at night. Patient does continue to smoke cigarettes but is trying to quit. Patient is a type I diabetic. Patient states she was admitted here last month with a COPD exacerbation. Patient was on corticosteroids at that time. Patient states that the reason she came in today was the fact that the cough is just been present for 2 weeks. Patient has not had a COVID-19 test. Has not had a fever. No headache, no fever or chills, no changes in vision or hearing, no sore throat or difficulty with speech, no neck pain, no chest pain, no abdominal pain, no nausea or vomiting, no changes in urination or bowel movements, no numbness or tingling, no extremity pain, no skin rashes or lesions. Patient does have inhalers at home. - Related Data Home Medications Medication Instructions Recorded Confirmed Insulin NPH Hum/Reg Insulin Hm 12 unit SQ BID-W/MEALS 11/10/16 03/10/22 [humuLIN 70/30 Kwikpen] Ibuprofen [Motrin] 800 mg PO TID 08/08/20 03/10/22 Losartan/Hydrochlorothiazide 1 tab PO DAILY 08/08/20 03/10/22 [Losartan-Hctz 100-12.5 mg Tab] QUEtiapine [SEROquel] 100 mg PO HS PRN 08/08/20 03/10/22 Albuterol Sulfate [Ventolin HFA] 2 puff INHALATION RT-QID PRN 11/03/20 03/10/22 Cyclobenzaprine [Flexeril] 10 mg PO DAILY PRN 03/10/22 03/10/22 Levothyroxine Sodium [Synthroid] 125 mcg PO DAILY 03/10/22 03/10/22 rOPINIRole HCL [Requip] 0.25 mg PO HS PRN 03/10/22 03/10/22 Previous Rx's Medication Instructions Recorded Pantoprazole [Protonix] 40 mg PO DAILY #20 tablet. 11/03/20 Budesonide-Formot 160-4.5 Mcg 1 puff INHALATION BID #10.2 gm 03/14/22 [Symbicort 160-4.5 Mcg Inhaler] Cefdinir [Omnicef] 300 mg PO Q12HR #6 cap 03/14/22 Gabapentin [Neurontin] 400 mg PO TID #0 03/14/22 Insulin Glargine,Hum.rec.anlog 20 unit SQ DAILY #0 03/14/22 [Lantus Solostar Pen] Nicotine 14Mg/24Hr Patch [Habitrol] 1 patch TRANSDERM DAILY #14 patch 03/14/22 cloNIDine HCL [Catapres] 0.1 mg PO BID #60 tab 03/14/22 predniSONE 10 mg PO DAILY #30 tab 03/14/22 Amoxicillin/Potassium Clav 1 each PO Q12HR #14 tab 04/21/22 [Augmentin 875-125 Tablet] Amoxicillin/Potassium Clav 1 each PO Q12HR #14 tab 04/21/22 [Augmentin 875-125 Tablet] Amoxicillin/Potassium Clav 1 tab PO Q12HR 7 Days #14 tab 04/21/22 [Augmentin 875-125 Tablet] Benzonatate [Tessalon Perles] 200 mg PO TID PRN #30 capsule 04/21/22 Doxycycline [Vibramycin] 100 mg PO BID 1 Days #20 each 04/21/22 predniSONE 50 mg PO DAILY #5 tab 04/21/22 Allergies Allergy/AdvReac Type Severity Reaction Status Date / Time No Known Allergies Allergy Verified 04/21/22 21:41 Review of Systems ROS Statement: Those systems with pertinent positive or pertinent negative responses have been documented in the HPI. ROS Other: All systems not noted in ROS Statement are negative. Past Medical History Past Medical History: Diabetes Mellitus, Eye Disorder, Musculoskeletal Disorder, Osteoarthritis (OA), Thyroid Disorder Additional Past Medical History / Comment(s): Mutiple Sclerosis. IDDM Type I, hx seizure w/ hypoglycemic episodes, diabetic neuropathy, ischemic neuropathy of the Lt eye, optic neuritis Rt eye. OA, efren in Rt ankle. Hx prob w/ cervical discs. History of Any Multi-Drug Resistant Organisms: None Reported Past Surgical History: Adenoidectomy, Appendectomy, Tonsillectomy, Tubal Ligation Additional Past Surgical History / Comment(s): Laparoscopies. Pain procedures. Past Anesthesia/Blood Transfusion Reactions: Motion Sickness Past Psychological History: Anxiety, Depression Smoking Status: Current every day smoker Past Alcohol Use History: Occasional Past Drug Use History: Marijuana - Past Family History Father Additional Family Medical History / Comment(s): She states she is adopted and she does not want anything about her father's history. Mother Family Medical History: Myocardial Infarction (DC) Additional Family Medical History / Comment(s): Mother at age 48 from coronary artery disease. Patient does not have any brothers and sisters. She has one adult son with no major medical problems. General Exam - General Exam Comments Initial Comments: Vital signs stable, patient afebrile. Patient's oxygen saturations 100% on room air despite the adventitious lung sounds. Adequate peripheral perfusion. Capillary refill less than 2 seconds. Normal skin color Limitations: no limitations General appearance: alert, in distress (Mild distress secondary to cough) Head exam: Present: atraumatic, normocephalic, normal inspection Eye exam: Present: normal appearance, PERRL, EOMI. Absent: scleral icterus, conjunctival injection, periorbital swelling ENT exam: Present: normal exam, normal oropharynx, mucous membranes dry, mucous membranes moist, TM's normal bilaterally, normal external ear exam Neck exam: Present: normal inspection, full ROM. Absent: tenderness, meningismus, lymphadenopathy Respiratory exam: Present: wheezes, rhonchi, other (Cough throughout the course of the interview). Absent: respiratory distress, rales, stridor, chest wall tenderness, accessory muscle use, decreased breath sounds, prolonged expiratory Cardiovascular Exam: Present: regular rate, normal rhythm, normal heart sounds. Absent: systolic murmur, diastolic murmur, rubs, gallop, clicks GI/Abdominal exam: Present: soft, normal bowel sounds. Absent: distended, tenderness, guarding, rebound, rigid Extremities exam: Present: normal inspection, full ROM, normal capillary refill. Absent: tenderness, pedal edema, joint swelling, calf tenderness Back exam: Present: normal inspection Neurological exam: Present: alert, oriented X3, CN II-XII intact Psychiatric exam: Present: normal affect, normal mood Skin exam: Present: warm, dry, intact, normal color. Absent: rash Course Vital Signs 04/21/22 04/21/2222 21:27 22:35 22:42 Temperature 97.8 F Pulse Rate 70 67 73 Respiratory 16 Rate Blood Pressure 104/57 O2 Sat by Pulse 99 Oximetry 04/21/22 23:57 Temperature Pulse Rate 77 Respiratory 18 Rate Blood Pressure 122/65 O2 Sat by Pulse 98 Oximetry - Reevaluation(s) Reevaluation #1: 04/21/22 23:11 Medical record is reviewed Symptoms are improved here in the emergency department Patient is informed of results and questions answered Patient in no distress Procedures - Smoking Cessation Time Spent Discussing Smoking Cessation w/Patient (Minutes): 5 Patient Acknowledges Need for Cessation: No Medical Decision Making - Medical Decision Making She presents with cephalgia most consistent with viral bronchitis. Patient's vital signs are stable, oxygen saturation on room air is 100%. The patient has no tachypnea. Mild wheezing and scattered rhonchi. Solu-Medrol 125 mg IM, DuoNeb treatment ordered. We'll check COVID-19. Patient was told to return to the ER for any signs or symptoms worsen. Told to return immediately if any other problems arise. All questions answered. Treatment plan discussed. Patient in agreement Every effort has been made to ensure accuracy of this dictation. However, due to the limitations of electronic medical records and dictation devices, errors in charting still occur. 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 - Lab Data Lab Results 04/21/22 04/21/22 Range/Units 22:02 22:02 Coronavirus (PCR) Not Detected (Not Detectd) Influenza Type A RNA Not Detected (Not Detectd) Influenza Type B (PCR) Not Detected (Not Detectd) Disposition Clinical Impression: COPD exacerbation Disposition: HOME SELF-CARE Condition: Stable Instructions (If sedation given, give patient instructions): COPD (Chronic Obstructive Pulmonary Disease) (ED) Prescriptions: Amoxicillin/Potassium Clav [Augmentin 875-125 Tablet] 1 tab PO Q12HR 7 Days #14 tab Amoxicillin/Potassium Clav [Augmentin 875-125 Tablet] 1 each PO Q12HR #14 tab Amoxicillin/Potassium Clav [Augmentin 875-125 Tablet] 1 each PO Q12HR #14 tab predniSONE 50 mg PO DAILY #5 tab Benzonatate [Tessalon Perles] 200 mg PO TID PRN #30 capsule PRN Reason: Cough Doxycycline [Vibramycin] 100 mg PO BID 1 Days #20 each Is patient prescribed a controlled substance at d/c from ED?: No Referrals: Ryan Pino MD [Primary Care Provider] - 1-2 days
--- NOTE | 2022-04-21 22:13 | XR ---
EXAMINATION TYPE: XR chest 2V DATE OF EXAM: 04/21/2022 COMPARISON: 03/10/2022 HISTORY: Cough TECHNIQUE: FINDINGS: Heart and mediastinum are normal. Lungs are clear. Diaphragm is normal. Bony thorax appears normal. IMPRESSION: Normal chest. No change.
[2022-04-21] MEDS ORDERED: AMOXIC-POT CLAV 875-125MG 1 EACH TAB PO STA (23:06)
[2022-04-21 23:58] VITALS: BP 122/65; PULSE 77; RESP 18
== END 2022-04-21 23:58 | disposition home or self-care (01) ==
LOC: EC 21:18
DX: J44.1 Chronic obstructive pulmonary disease with (acute) exacerbation (principal); E11.9 Type 2 diabetes mellitus without complications; E07.9 Disorder of thyroid, unspecified; Z79.1 Long term (current) use of non-steroidal anti-inflammatories (NSAID); F17.200 Nicotine dependence, unspecified, uncomplicated; Z82.49 Family history of ischemic heart disease and other diseases of the circulatory system; Z20.822 Contact with and (suspected) exposure to COVID-19
CPT/HCPCS: 94640; 87502; 87635; 71046; 99285; 96372; J2930

== ENCOUNTER 2022-07-28 18:35 | Inpatient (IN) | payer MEDICARE, OTHER ==
[2022-07-28 18:56] LABS: Glucose,Whole Blood 403 mg/dL (70-110)
[2022-07-28] MEDS: ACETAMINOPHEN TAB 500 MG TAB PO STA (19:05)
[2022-07-28 19:20] LABS: ALT 14 U/L (4-34); AST 26 U/L (14-36); African American GFR (CKD) 60 (>60 ml/min/1.73 sqM); Albumin 3.8 g/dL (3.5-5.0); Alkaline Phosphatase 160 U/L (38-126); Anion Gap 17 mmol/L; Blood Urea Nitrogen 24 mg/dL (7-17); Calcium 8.7 mg/dL (8.4-10.2); Carbon Dioxide 17 mmol/L (22-30); Chloride 91 mmol/L (98-107); Glucose 390 mg/dL (74-99); Magnesium 1.3 mg/dL (1.6-2.3); Non-African American GFR(CKD) 52 (>60 ml/min/1.73 sqM); Potassium 4.4 mmol/L (3.5-5.1); Sodium 125 mmol/L (137-145); Total Bilirubin 1.1 mg/dL (0.2-1.3); Total Protein 6.8 g/dL (6.3-8.2)
[2022-07-28] MEDS ORDERED: ACETAMINOPHEN IV (For NPO) 1,000 MG in EMPTY BAG 1 BAG IVPB STA (19:21)
[2022-07-28] MEDS ORDERED: ONDANSETRON 4 MG/2 ML VIAL IVP STA (19:21)
[2022-07-28 19:24] LABS: Partial Thromboplastin Time 25.6 sec (22.0-30.0); Prothrombin Time 10.7 sec (9.0-12.0)
[2022-07-28 19:27] LABS: Basophils # (A) 0.1 k/uL (0-0.2); Basophils % (A) 0 %; Eosinophils # (A) 0.1 k/uL (0-0.7); Eosinophils % (A) 1 %; HCT 41.5 % (34.0-46.0); HGB 13.6 gm/dL (11.4-16.0); Lymphocytes # (A) 0.4 k/uL (1.0-4.8); Lymphocytes % (A) 3 %; MCH 32.3 pg (25.0-35.0); MCHC 32.8 g/dL (31.0-37.0); MCV 98.4 fL (80.0-100.0); Mean Platelet Volume 11.7; Monocytes # (A) 0.4 k/uL (0-1.0); Monocytes % (A) 2 %; Neutrophils # (A) 15.3 k/uL (1.3-7.7); Neutrophils % (A) 94 %; Platelet Count 228 k/uL (150-450); RBC 4.21 m/uL (3.80-5.40); RDW 12.7 % (11.5-15.5); WBC 16.3 k/uL (3.8-10.6)
[2022-07-28] MEDS ORDERED: cefTRIAXone IN SWFI 1,000 MG/10 ML SYRINGE IVP STA (20:02)
[2022-07-28] MEDS ORDERED: SODIUM CHLORIDE 0.9% 1,000 ML IV ONE (20:07)
[2022-07-28 20:10] LABS: Appearance,Urine Clear (Clear); Bilirubin,Urine Negative (Negative); Blood,Urine Moderate (Negative); Color,Urine Yellow; Glucose,Urine (UA) 4+ (Negative); Ketones,Urine 3+ (Negative); Leukocyte Esterase,Urine Small (Negative); Mucus,Urine Rare /hpf; Nitrite,Urine Negative (Negative); PH, Urine 5.5 (5.0-8.0); Protein,Urine 2+ (Negative); RBC,Urine 5 /hpf (0-5); Specific Gravity,Urine 1.019 (1.001-1.035); Squamous Epithelial Cell,Urine <1 /hpf (0-4); Urobilinogen,Urine <2.0 mg/dL (<2.0); WBC,Urine 34 /hpf (0-5)
[2022-07-28] MEDS ORDERED: INSULIN REGULAR 100 UNIT/ML VIAL (IV) IV ONE (20:12)
--- NOTE | 2022-07-28 20:22 | ED ---
General Adult HPI - General Chief complaint: Shortness of Breath Stated complaint: Diabetic issues, covid + Time Seen by Provider: 07/28/22 18:40 Source: patient, EMS, RN notes reviewed, old records reviewed Mode of arrival: EMS - History of Present Illness Initial comments: 57-year-old female presents for evaluation of fever, cough, elevated blood sugar. Patient is a type I diabetic. She's had cough for the past 2 days. Found to be febrile at 102 by paramedics. Patient does not believe she's been exposed to coronavirus. She has no chest pain or abdominal pain. No rash. No dysuria or hematuria. No abdominal pain. - Related Data Home Medications Medication Instructions Recorded Confirmed Insulin NPH Hum/Reg Insulin Hm 12 unit SQ BID-W/MEALS 11/10/16 03/10/22 [humuLIN 70/30 Kwikpen] Ibuprofen [Motrin] 800 mg PO TID 08/08/20 03/10/22 Losartan/Hydrochlorothiazide 1 tab PO DAILY 08/08/20 03/10/22 [Losartan-Hctz 100-12.5 mg Tab] QUEtiapine [SEROquel] 100 mg PO HS PRN 08/08/20 03/10/22 Albuterol Sulfate [Ventolin HFA] 2 puff INHALATION RT-QID PRN 11/03/20 03/10/22 Cyclobenzaprine [Flexeril] 10 mg PO DAILY PRN 03/10/22 03/10/22 Levothyroxine Sodium [Synthroid] 125 mcg PO DAILY 03/10/22 03/10/22 rOPINIRole HCL [Requip] 0.25 mg PO HS PRN 03/10/22 03/10/22 Previous Rx's Medication Instructions Recorded Pantoprazole [Protonix] 40 mg PO DAILY #20 tablet. 11/03/20 Budesonide-Formot 160-4.5 Mcg 1 puff INHALATION BID #10.2 gm 03/14/22 [Symbicort 160-4.5 Mcg Inhaler] Cefdinir [Omnicef] 300 mg PO Q12HR #6 cap 03/14/22 Gabapentin [Neurontin] 400 mg PO TID #0 03/14/22 Insulin Glargine,Hum.rec.anlog 20 unit SQ DAILY #0 03/14/22 [Lantus Solostar Pen] Nicotine 14Mg/24Hr Patch [Habitrol] 1 patch TRANSDERM DAILY #14 patch 03/14/22 cloNIDine HCL [Catapres] 0.1 mg PO BID #60 tab 03/14/22 predniSONE 10 mg PO DAILY #30 tab 03/14/22 Amoxicillin/Potassium Clav 1 each PO Q12HR #14 tab 04/21/22 [Augmentin 875-125 Tablet] Amoxicillin/Potassium Clav 1 each PO Q12HR #14 tab 04/21/22 [Augmentin 875-125 Tablet] Amoxicillin/Potassium Clav 1 tab PO Q12HR 7 Days #14 tab 04/21/22 [Augmentin 875-125 Tablet] Benzonatate [Tessalon Perles] 200 mg PO TID PRN #30 capsule 04/21/22 Doxycycline [Vibramycin] 100 mg PO BID 1 Days #20 each 04/21/22 predniSONE 50 mg PO DAILY #5 tab 04/21/22 Allergies Allergy/AdvReac Type Severity Reaction Status Date / Time No Known Allergies Allergy Verified 07/28/22 18:49 Review of Systems ROS Statement: Those systems with pertinent positive or pertinent negative responses have been documented in the HPI. ROS Other: All systems not noted in ROS Statement are negative. Past Medical History Past Medical History: COPD, Diabetes Mellitus, Eye Disorder, Hypertension, Musculoskeletal Disorder, Osteoarthritis (OA), Thyroid Disorder Additional Past Medical History / Comment(s): Mutiple Sclerosis. IDDM Type I, hx seizure w/ hypoglycemic episodes, diabetic neuropathy, ischemic neuropathy of the Lt eye, optic neuritis Rt eye. OA, efren in Rt ankle. Hx prob w/ cervical discs. History of Any Multi-Drug Resistant Organisms: None Reported Past Surgical History: Adenoidectomy, Appendectomy, Tonsillectomy, Tubal Ligation Additional Past Surgical History / Comment(s): Laparoscopies. Pain procedures. Past Anesthesia/Blood Transfusion Reactions: Motion Sickness Past Psychological History: Anxiety, Depression Smoking Status: Former smoker Past Alcohol Use History: Occasional Past Drug Use History: Marijuana - Past Family History Father Additional Family Medical History / Comment(s): She states she is adopted and she does not want anything about her father's history. Mother Family Medical History: Myocardial Infarction ([place]) Additional Family Medical History / Comment(s): Mother at age 48 from coronary artery disease. Patient does not have any brothers and sisters. She has one adult son with no major medical problems. General Exam General appearance: alert, in no apparent distress Head exam: Present: atraumatic, normocephalic Eye exam: Present: normal appearance, PERRL ENT exam: Present: mucous membranes dry Neck exam: Present: normal inspection. Absent: tenderness, meningismus Respiratory exam: Absent: respiratory distress Cardiovascular Exam: Present: normal rhythm, tachycardia GI/Abdominal exam: Present: soft. Absent: distended, tenderness, guarding Extremities exam: Present: normal inspection, normal capillary refill Neurological exam: Present: alert, oriented X3. Absent: CN II-XII intact, motor sensory deficit Psychiatric exam: Present: normal affect, normal mood Skin exam: Present: warm, dry, intact. Absent: cyanosis, diaphoretic Course Vital Signs 07/28/22 07/28/22 07/28/22 18:45 19:19 20:20 Temperature 102.4 F H Pulse Rate 108 H 105 H Respiratory 17 18 22 Rate Blood Pressure 143/61 125/84 O2 Sat by Pulse 98 95 Oximetry Medical Decision Making - Medical Decision Making 49-year-old female presenting with fever, elevated blood sugar and cough. She's had symptoms for the past 2 days. She is a type I diabetic. Patient is febrile upon arrival. She's had some associated nausea and vomiting. Her coronavirus testing is negative. She has a leukocytosis of 16.3. She has a hyponatremia 124. She has a CO2 of 17 with an anion gap of 17. Lactic acid 2.3. Her blood sugar is elevated at 400. Urinalysis is positive for both ketones and leukocyte ptosis. She is acetone positive she is currently in mild DKA. She's given IV fluid, IV insulin. She is started on IV antibiotics given the leukocytosis and fever. This may be related to UTI or developing pneumonia. She'll be admitted with close blood glucose monitoring, repeat electrolytes. Patient will be admitted to Dr. Keen. - Lab Data Result diagrams: 07/28/22 19:00 07/28/22 19:00 Lab Results 07/28/22 07/28/22 07/28/22 Range/Units 18:52 18:56 19:00 WBC 16.3 H (3.8-10.6) k/uL RBC 4.21 (3.80-5.40) m/uL Hgb 13.6 (11.4-16.0) gm/dL Hct 41.5 (34.0-46.0) % MCV 98.4 (80.0-100.0) fL MCH 32.3 (25.0-35.0) pg MCHC 32.8 (31.0-37.0) g/dL RDW 12.7 (11.5-15.5) % Plt Count 228 (150-450) k/uL MPV 11.7 Neutrophils % 94 % Lymphocytes % 3 % Monocytes % 2 % Eosinophils % 1 % Basophils % 0 % Neutrophils # 15.3 H (1.3-7.7) k/uL Lymphocytes # 0.4 L (1.0-4.8) k/uL Monocytes # 0.4 (0-1.0) k/uL Eosinophils # 0.1 (0-0.7) k/uL Basophils # 0.1 (0-0.2) k/uL PT (9.0-12.0) sec INR (<1.2) APTT (22.0-30.0) sec Sodium (137-145) mmol/L Potassium (3.5-5.1) mmol/L Chloride (98-107) mmol/L Carbon Dioxide (22-30) mmol/L Anion Gap mmol/L BUN (7-17) mg/dL Creatinine (0.52-1.04) mg/dL Est GFR (CKD-EPI)AfAm (>60 ml/min/1.73 sqM) Est GFR (CKD-EPI)NonAf (>60 ml/min/1.73 sqM) Glucose (74-99) mg/dL POC Glucose (mg/dL) 403 H (70-110) mg/dL POC Glu Bioinformaticist ID Jimbo, Asmara Plasma Lactic Acid Roger (0.7-2.0) mmol/L Calcium (8.4-10.2) mg/dL Magnesium (1.6-2.3) mg/dL Total Bilirubin (0.2-1.3) mg/dL AST (14-36) U/L ALT (4-34) U/L Alkaline Phosphatase (38-126) U/L Total Protein (6.3-8.2) g/dL Albumin (3.5-5.0) g/dL Urine Color Urine Appearance (Clear) Urine pH (5.0-8.0) Ur Specific [place] (1.001-1.035) Urine Protein (Negative) Urine Glucose (UA) (Negative) Urine Ketones (Negative) Urine Blood (Negative) Urine Nitrite (Negative) Urine Bilirubin (Negative) Urine Urobilinogen (<2.0) mg/dL Ur Leukocyte Esterase (Negative) Urine RBC (0-5) /hpf Urine WBC (0-5) /hpf Urine WBC Clumps (None) /hpf Ur Squamous Epith Cells (0-4) /hpf Urine Mucus (None) /hpf Acetone, Qual (Negative) Coronavirus (PCR) Not Detected (Not Detectd) 07/28/22 07/28/22 07/28/22 Range/Units 19:00 19:00 19:00 WBC (3.8-10.6) k/uL RBC (3.80-5.40) m/uL Hgb (11.4-16.0) gm/dL Hct (34.0-46.0) % MCV (80.0-100.0) fL MCH (25.0-35.0) pg MCHC (31.0-37.0) g/dL RDW (11.5-15.5) % Plt Count (150-450) k/uL MPV Neutrophils % % Lymphocytes % % Monocytes % % Eosinophils % % Basophils % % Neutrophils # (1.3-7.7) k/uL Lymphocytes # (1.0-4.8) k/uL Monocytes # (0-1.0) k/uL Eosinophils # (0-0.7) k/uL Basophils # (0-0.2) k/uL PT 10.7 (9.0-12.0) sec INR 1.0 (<1.2) APTT 25.6 (22.0-30.0) sec Sodium 125 L (137-145) mmol/L Potassium 4.4 (3.5-5.1) mmol/L Chloride 91 L (98-107) mmol/L Carbon Dioxide 17 L (22-30) mmol/L Anion Gap 17 mmol/L BUN 24 H (7-17) mg/dL Creatinine 1.16 H (0.52-1.04) mg/dL Est GFR (CKD-EPI)AfAm 60 (>60 ml/min/1.73 sqM) Est GFR (CKD-EPI)NonAf 52 (>60 ml/min/1.73 sqM) Glucose 390 H (74-99) mg/dL POC Glucose (mg/dL) (70-110) mg/dL POC Glu Bioinformaticist ID Plasma Lactic Acid Roger (0.7-2.0) mmol/L Calcium 8.7 (8.4-10.2) mg/dL Magnesium 1.3 L (1.6-2.3) mg/dL Total Bilirubin 1.1 (0.2-1.3) mg/dL AST 26 (14-36) U/L ALT 14 (4-34) U/L Alkaline Phosphatase 160 H (38-126) U/L Total Protein 6.8 (6.3-8.2) g/dL Albumin 3.8 (3.5-5.0) g/dL Urine Color Yellow Urine Appearance Clear (Clear) Urine pH 5.5 (5.0-8.0) Ur Specific [place] 1.019 (1.001-1.035) Urine Protein 2+ H (Negative) Urine Glucose (UA) 4+ H (Negative) Urine Ketones 3+ H (Negative) Urine Blood Moderate H (Negative) Urine Nitrite Negative (Negative) Urine Bilirubin Negative (Negative) Urine Urobilinogen <2.0 (<2.0) mg/dL Ur Leukocyte Esterase Small H (Negative) Urine RBC 5 (0-5) /hpf Urine WBC 34 H (0-5) /hpf Urine WBC Clumps Few H (None) /hpf Ur Squamous Epith Cells <1 (0-4) /hpf Urine Mucus Rare H (None) /hpf Acetone, Qual Positive (Negative) Coronavirus (PCR) (Not Detectd) 07/28/22 Range/Units 19:00 WBC (3.8-10.6) k/uL RBC (3.80-5.40) m/uL Hgb (11.4-16.0) gm/dL Hct (34.0-46.0) % MCV (80.0-100.0) fL MCH (25.0-35.0) pg MCHC (31.0-37.0) g/dL RDW (11.5-15.5) % Plt Count (150-450) k/uL MPV Neutrophils % % Lymphocytes % % Monocytes % % Eosinophils % % Basophils % % Neutrophils # (1.3-7.7) k/uL Lymphocytes # (1.0-4.8) k/uL Monocytes # (0-1.0) k/uL Eosinophils # (0-0.7) k/uL Basophils # (0-0.2) k/uL PT (9.0-12.0) sec INR (<1.2) APTT (22.0-30.0) sec Sodium (137-145) mmol/L Potassium (3.5-5.1) mmol/L Chloride (98-107) mmol/L Carbon Dioxide (22-30) mmol/L Anion Gap mmol/L BUN (7-17) mg/dL Creatinine (0.52-1.04) mg/dL Est GFR (CKD-EPI)AfAm (>60 ml/min/1.73 sqM) Est GFR (CKD-EPI)NonAf (>60 ml/min/1.73 sqM) Glucose (74-99) mg/dL POC Glucose (mg/dL) (70-110) mg/dL POC Glu Bioinformaticist ID Plasma Lactic Acid Roger 2.3 H* (0.7-2.0) mmol/L Calcium (8.4-10.2) mg/dL Magnesium (1.6-2.3) mg/dL Total Bilirubin (0.2-1.3) mg/dL AST (14-36) U/L ALT (4-34) U/L Alkaline Phosphatase (38-126) U/L Total Protein (6.3-8.2) g/dL Albumin (3.5-5.0) g/dL Urine Color Urine Appearance (Clear) Urine pH (5.0-8.0) Ur Specific [place] (1.001-1.035) Urine Protein (Negative) Urine Glucose (UA) (Negative) Urine Ketones (Negative) Urine Blood (Negative) Urine Nitrite (Negative) Urine Bilirubin (Negative) Urine Urobilinogen (<2.0) mg/dL Ur Leukocyte Esterase (Negative) Urine RBC (0-5) /hpf Urine WBC (0-5) /hpf Urine WBC Clumps (None) /hpf Ur Squamous Epith Cells (0-4) /hpf Urine Mucus (None) /hpf Acetone, Qual (Negative) Coronavirus (PCR) (Not Detectd) Disposition Clinical Impression: Community acquired pneumonia, DKA, type 1, UTI (urinary tract infection) Disposition: ADMITTED IP TO THIS HOSP Condition: Serious Is patient prescribed a controlled substance at d/c from ED?: No Referrals: Ryan Pino MD [Primary Care Provider] - 1-2 days Time of Disposition: 20:45
--- NOTE | 2022-07-28 20:33 | XR ---
EXAMINATION TYPE: XR chest 1V portable DATE OF EXAM: 07/28/2022 COMPARISON: 04/21/2022 HISTORY: Chest pain TECHNIQUE: Single view FINDINGS: Heart and mediastinum are normal. Lungs are clear. Diaphragm is normal. Bony thorax appears normal. There are chest leads. IMPRESSION: Normal chest. No change
[2022-07-28] MEDS ORDERED: POTASSIUM CHLORIDE ER 20 MEQ TAB.ER PO STA (20:53)
[2022-07-28 22:14] LABS: Glucose,Whole Blood 339 mg/dL (70-110)
[2022-07-28] MEDS: INSULIN REGULAR 100 UNIT in SODIUM CHLORIDE 0.9% 100 ML IV SCH (22:18)
[2022-07-28 23:17] LABS: Glucose,Whole Blood 250 mg/dL (70-110)
[2022-07-28] MEDS: D5-0.45% NACL WITH KCL 20MEQ/L 1,000 ML IV SCH (23:32)
[2022-07-28] MEDS ORDERED: SODIUM CHLORIDE 0.9% 2,000 ML IV ONE (23:39)
[2022-07-29 01:20] LABS: Glucose,Whole Blood 192 mg/dL (70-110)
[2022-07-29 01:20] LABS: Glucose,Whole Blood 154 mg/dL (70-110)
[2022-07-29 02:01] LABS: Glucose,Whole Blood 167 mg/dL (70-110)
[2022-07-29] MEDS: SODIUM CHLORIDE 0.9% 1,000 ML IV SCH ×2 (02:41→06:46)
[2022-07-29] MEDS: ACETAMINOPHEN TAB 500 MG TAB PO STA (02:41)
[2022-07-29 03:00] LABS: Glucose,Whole Blood 167 mg/dL (70-110)
[2022-07-29] MEDS ORDERED: ALBUTEROL HFA INHALER INHALATION PRN (03:03)
[2022-07-29] MEDS ORDERED: IPRATROPIUM-ALBUTEROL 3 ML NEB INHALATION PRN (03:06)
[2022-07-29 03:37] LABS: Phosphorus 3.2 mg/dL (2.5-4.5); Potassium 3.6 mmol/L (3.5-5.1)
[2022-07-29 03:58] LABS: Glucose,Whole Blood 174 mg/dL (70-110)
[2022-07-29] MEDS ORDERED: ACETAMINOPHEN IV (For NPO) 1,000 MG in EMPTY BAG 1 BAG IVPB PRN (04:00)
--- NOTE | 2022-07-29 04:01 | XR ---
EXAMINATION TYPE: XR chest 1V portable DATE OF EXAM: 07/29/2022 COMPARISON: Yesterday HISTORY: Short of breath TECHNIQUE: Single view FINDINGS: Heart and mediastinum are normal. Lungs are clear. Diaphragm is normal. Bony thorax appears normal. IMPRESSION: Normal chest. Normal heart. No change.
[2022-07-29 04:24] LABS: Glucose,Whole Blood 185 mg/dL (70-110)
[2022-07-29 04:26] LABS: Phosphorus 2.4 mg/dL (2.5-4.5)
[2022-07-29] MEDS ORDERED: SODIUM CHLORIDE 0.9% 2,000 ML IV ONE (04:33)
[2022-07-29 05:02] LABS: Glucose,Whole Blood 181 mg/dL (70-110)
[2022-07-29] MEDS ORDERED: NALOXONE 0.4 MG/ML 1 ML VIAL IV PRN (05:10)
[2022-07-29] MEDS: D5-0.45% NACL WITH KCL 20MEQ/L 1,000 ML IV SCH ×2 (06:25→13:35)
[2022-07-29 06:27] LABS: Glucose,Whole Blood 136 mg/dL (70-110)
[2022-07-29 07:16] LABS: Glucose,Whole Blood 131 mg/dL (70-110)
[2022-07-29] MEDS ORDERED: SYMBICORT 160-4.5 MCG INHALER INHALATION SCH (08:00)
[2022-07-29 08:12] LABS: Glucose,Whole Blood 173 mg/dL (70-110)
[2022-07-29 09:00] LABS: Glucose,Whole Blood 167 mg/dL (70-110)
[2022-07-29 09:24] LABS: Albumin 2.3 g/dL (3.5-5.0); Potassium 3.4 mmol/L (3.5-5.1); Total Bilirubin 0.4 mg/dL (0.2-1.3); Total Protein 4.6 g/dL (6.3-8.2)
[2022-07-29] MEDS ORDERED: Potassium Replacement Protocol 1 EACH MISC MISCELLANE PRN (09:35)
[2022-07-29] MEDS ORDERED: Magnesium Replacement Protocol 1 EACH MISC MISCELLANE PRN (09:35)
[2022-07-29] MEDS: MAGNESIUM SULFATE-D5W PMX 1 GM in DEXTROSE/WATER 1 100ML.BAG IVPB SCH ×5 (09:49→18:19)
[2022-07-29] MEDS: POTASSIUM CHLORIDE ER 20 MEQ TAB.ER PO SCH ×2 (09:50→11:09)
[2022-07-29] MEDS: LEVOTHYROXINE 125 MCG TAB PO SCH (09:50)
[2022-07-29 09:57] LABS: Glucose,Whole Blood 188 mg/dL (70-110)
[2022-07-29 11:09] LABS: Glucose,Whole Blood 238 mg/dL (70-110)
[2022-07-29 11:40] VITALS: BMI 29.2
--- NOTE | 2022-07-29 11:40 | P.CNPUL ---
History of Present Illness Consult date: 07/29/22 Chief complaint: DKA History of present illness: This is a 57-year-old female patient, poorly controlled diabetes mellitus, was hospitalized yesterday because of fever, cough, the last 50, elevated blood sugars. The patient is known to have type 1 diabetes mellitus. She is been having for blood sugar control on outpatient basis. She came to the hospital because of fever and temperature 102. She also had some dysuria. No shortness of breath. No altered mentation. No chest pain. She did complain of some nausea and limited emesis. She was initially admitted to the medical floor and following that the patient got transferred to the ICU as the patient was found to be in DKA, and the patient was becoming progressively more tachycardic and hypotensive. Note that the patient was admitted to the hospital and initial anion gap was 17 and without treatment and along with treatment, the anion gap Drop-down 14. Initial blood sugar was elevated at 390 and a drop down to 167 today and initial blood sugar was 125 aunts currently up to 131. The patient received IV fluids per protocol for DKA and the patient was started on insulin drip for blood sugar control and following that, the patient was switched to D5 half-normal saline at the rate of 150 mL an hour and the patient was also given normal saline infusion. This morning, the patient is on insulin drip at 2 units an hour and the most recent blood sugar is 167. Lactic acid level has been fluctuating between 2.3 at 3.8. The morning blood work shows a serum bicarbonate of 16 with a sodium level of 131 and a white cell count of 16 with a hemoglobin 13.6. UA was abnormal and it was consistent with an underlying UTI. She is awake and following commands and answering questions appropriately. Note that the patient also had some limited fluctuation renal function. Most recent creatinine from this morning is at 1.2 awaiting follow-up labs. Lactic acid level is being monitored. LFTs are essentially within normal limits. Cultures of been sent and the patient was started on IV Rocephin. She is afebrile today. She is on 3 L O2 nasal cannula with pulse ox of 99%. Review of Systems Constitutional: Reports fatigue, Reports weakness Eyes: denies as per HPI, denies blurred vision, denies bulging eye, denies decreased vision, denies diplopia, denies discharge, denies dry eye, denies irritation, denies itching, denies pain, denies photophobia, denies loss of peripheral vision, denies loss of vision, denies tunnel vision/blind spots Ears: deny: decreased hearing, ear discharge, earache, tinnitus Ears, nose, mouth and throat: Reports as per HPI Breasts: absent: as per HPI, change in shape, gynecomastia, masses, nipple discharge, pain, skin changes, swelling Breasts: Reports as per HPI Cardiovascular: Reports decreased exercise tolerance, Reports dyspnea on exerti on Respiratory: Reports cough, Reports dyspnea, Reports wheezing Gastrointestinal: Reports loss of appetite, Reports nausea, Reports vomiting Genitourinary: Reports as per HPI, Reports dysuria Menstruation: Reports as per HPI Musculoskeletal: Reports gait dysfunction, Reports hot joints, Reports leg numbness/tingling, Reports limitation of motion, Reports muscle weakness Musculoskeletal: absent: ankle pain, ankle stiffness, ankle swelling, as per HPI, elbow pain, elbow stiffness, elbow swelling, foot pain, foot stiffness, foot swelling, hand pain, hand stiffness, hand swelling, hip pain, hip stiffness, hip swelling, knee pain, knee stiffness, knee swelling, shoulder pain, shoulder stiffness, shoulder swelling, wrist pain, wrist stiffness, wrist swelling Integumentary: Reports as per HPI Neurological: Reports gait dysfunction Psychiatric: Reports as per HPI Endocrine: Reports as per HPI, Reports fatigue Hematologic/Lymphatic: Reports as per HPI Allergic/Immunologic: Reports as per HPI Past Medical History Past Medical History: COPD, Diabetes Mellitus, Eye Disorder, Hypertension, Musculoskeletal Disorder, Osteoarthritis (OA), Thyroid Disorder Additional Past Medical History / Comment(s): COPD, diabetes, GERD, osteoart hritis, seizure disorder secondary to hypoglycemia , hypothyroid, multiple sclerosis, diabetic peripheral neuropathy, optic neuritis, decreased vision in the eyes,; this problem, restless leg syndrome, colon polyps, anxiety depression. OA, efren in Rt ankle. Hx prob w/ cervical discs. Vaccinated for COVID 19 History of Any Multi-Drug Resistant Organisms: None Reported Past Surgical History: Adenoidectomy, Appendectomy, Tonsillectomy, Tubal Ligati on Additional Past Surgical History / Comment(s): Laparoscopies. Pain procedures. Past Anesthesia/Blood Transfusion Reactions: Motion Sickness Past Psychological History: Anxiety, Depression Additional Psychological History / Comment(s): Pt resides with a roomate. She uses a cane to ambulate. She cannot drive, she gets to appointments by her insurance company. Smoking Status: Former smoker Past Alcohol Use History: Occasional Additional Past Alcohol Use History / Comment(s): Pt started smoking in 1978 and is a 1/2 ppd smoker. She has smoked more in the past. Pt states she now drinks alcohol occasionally but did drink heavily in the past. Past Drug Use History: Marijuana Additional Drug Use History / Comment(s): "may hit a joint occasionally" - Past Family History Father Additional Family Medical History / Comment(s): She states she is adopted and she does not want anything about her father's history. Mother Family Medical History: Myocardial Infarction ([place]) Additional Family Medical History / Comment(s): Mother at age 48 from coronary artery disease. Patient does not have any brothers and sisters. She has one adult son with no major medical problems. Medications and Allergies Home Medications Medication Instructions Recorded Confirmed Type Insulin NPH Hum/Reg Insulin Hm 12 unit SQ BID-W/MEALS 11/10/16 07/28/22 History [humuLIN 70/30 Kwikpen] Ibuprofen [Motrin] 800 mg PO TID PRN 08/08/20 07/28/22 History Losartan/Hydrochlorothiazide 1 tab PO DAILY 08/08/20 07/28/22 History [Losartan-Hctz 100-12.5 mg Tab] QUEtiapine [SEROquel] 100 mg PO HS PRN 08/08/20 07/28/22 History Albuterol Sulfate [Ventolin HFA] 2 puff INHALATION RT-QID PRN 11/03/20 07/28/22 History Cyclobenzaprine [Flexeril] 10 mg PO TID PRN 03/10/22 07/28/22 History Levothyroxine Sodium [Synthroid] 125 mcg PO DAILY 03/10/22 07/28/22 History rOPINIRole HCL [Requip] 0.25 mg PO HS 03/10/22 07/28/22 History Budesonide-Formot 160-4.5 Mcg 1 puff INHALATION RT-BID 07/28/22 07/28/22 History [Symbicort 160-4.5 Mcg Inhaler] Gabapentin [Neurontin] 800 mg PO TID 07/28/22 07/28/22 History Insulin Glargine,Hum.rec.anlog 18 unit SQ DAILY 07/28/22 07/28/22 History [Lantus Solostar Pen] Montelukast [Singulair] 10 mg PO DAILY 07/28/22 07/28/22 History cloNIDine HCL [Catapres] 0.3 mg PO HS 07/28/22 07/28/22 History modafiniL [Provigil] 200 mg PO DAILY PRN 07/28/22 07/28/22 History Allergies Allergy/AdvReac Type Severity Reaction Status Date / Time No Known Allergies Allergy Verified 07/28/22 21:46 Physical Exam Vitals: Vital Signs Temp Pulse Pulse Resp BP BP Pulse Ox 07/29/22 07:00 95 28 H 97/52 100 07/29/22 06:30 92 24 97/52 99 07/29/22 06:00 93 20 97/52 99 07/29/22 05:30 101 H 29 H 107/51 98 07/29/22 05:00 102 H 21 107/52 96 07/29/22 04:30 103 F H 121 H 35 H 148/61 95 07/29/22 04:20 131 H 35 H 148/61 96 07/29/22 04:00 143 H 42 H 174/87 96 07/29/22 03:45 149 H 50 H 154/76 98 07/29/22 03:30 103 F H 147 H 143 H 44 H 176/95 97 07/29/22 03:23 132 H 07/29/22 03:00 99.0 F 103 H 22 113/73 100 07/29/22 00:30 98.4 F 83 18 91/53 100 07/28/22 23:00 98.1 F 73 16 88/42 96 07/28/22 22:00 93 16 102/78 97 07/28/22 20:20 105 H 22 125/84 95 07/28/22 19:19 18 07/28/22 18:45 102.4 F H 108 H 17 143/61 98 Intake and Output 07/28/22 07/29/22 07/29/22 22:59 06:59 14:59 Intake Total 2342.626 280 Output Total 200 75 Balance 2142.626 205 Intake: IV 10 Invasive Line 1 10 Intake, IV Titration 2332.626 280 Amount D5-0.45% NaCl with KCl 300 150 20Meq/l 1,000 ml @ 150 mls/hr IV .[facility]6H40[facility] Rx# :[id number] Insulin Regular 100 unit 32.626 0 In Sodium Chloride 0.9% 100 ml @ 0.1 UNITS/KG/HR 6.872 mls/hr IV .[id number] [facility] Rx#:[id number] Sodium Chloride 0.9% 1, 130 000 ml @ 130 mls/hr IV . Q7H42M [facility] Rx#:[id number] Sodium Chloride 0.9% 1, 1000 000 ml @ 999 mls/hr IV . Q1H1M [facility] Rx#:[id number] Sodium Chloride 0.9% 2, 1000 000 ml @ 999 mls/hr IV . Q2H1M [facility] Rx#:[id number] Output: Urine 200 75 Other: # Voids 0 Weight 68.039 kg GENERAL: Sitting up in bed, awake,3 liters 02 NC EYES: Pupils equal. Conjunctiva normal. HEENT: External appearance of nose and ears normal, oral cavity grossly normal. NECK: JVD not raised; masses not palpable. HEART: First and second heart sounds are normal; no edema. LUNGS: Respiratory rate normal; diminished breath sounds ABDOMEN: Soft, nontender, liver spleen not palpable, no masses palpable. PSYCH: [Alert and oriented x3; mood and affect anxious . MUSCULOSKELETAL:No Clubbing/cyanosis;muscles-grossly intact. Results - Laboratory Findings CBC and BMP: 07/28/22 19:00 07/29/22 08:51 PT/INR, D-dimer PT 10.7 sec (9.0-12.0) 07/28/22 19:00 INR 1.0 (<1.2) 07/28/22 19:00 Abnormal lab findings: Abnormal Labs 07/28/22 07/28/22 07/28/22 18:52 19:00 19:00 WBC 16.3 H Neutrophils # 15.3 H Lymphocytes # 0.4 L Sodium Chloride Carbon Dioxide BUN Creatinine Glucose POC Glucose (mg/dL) 403 H Plasma Lactic Acid Roger Phosphorus Magnesium Alkaline Phosphatase Urine Protein 2+ H Urine Glucose (UA) 4+ H Urine Ketones 3+ H Urine Blood Moderate H Ur Leukocyte Esterase Small H Urine WBC 34 H Urine WBC Clumps Few H Urine Mucus Rare H 07/28/22 07/28/22 07/28/22 19:00 19:00 21:39 WBC Neutrophils # Lymphocytes # Sodium 125 L Chloride 91 L Carbon Dioxide 17 L BUN 24 H Creatinine 1.16 H Glucose 390 H POC Glucose (mg/dL) Plasma Lactic Acid Roger 2.3 H* 2.2 H* Phosphorus Magnesium 1.3 L Alkaline Phosphatase 160 H Urine Protein Urine Glucose (UA) Urine Ketones Urine Blood Ur Leukocyte Esterase Urine WBC Urine WBC Clumps Urine Mucus 07/28/22 07/28/22 07/29/22 22:11 23:14 00:07 WBC Neutrophils # Lymphocytes # Sodium Chloride Carbon Dioxide BUN Creatinine Glucose POC Glucose (mg/dL) 339 H 250 H 154 H Plasma Lactic Acid Roger Phosphorus Magnesium Alkaline Phosphatase Urine Protein Urine Glucose (UA) Urine Ketones Urine Blood Ur Leukocyte Esterase Urine WBC Urine WBC Clumps Urine Mucus 07/29/22 07/29/22 07/29/22 00:57 01:00 01:35 WBC Neutrophils # Lymphocytes # Sodium 129 L Chloride Carbon Dioxide 18 L BUN 27 H Creatinine 1.40 H Glucose 159 H POC Glucose (mg/dL) 192 H Plasma Lactic Acid Roger 2.1 H* Phosphorus Magnesium Alkaline Phosphatase Urine Protein Urine Glucose (UA) Urine Ketones Urine Blood Ur Leukocyte Esterase Urine WBC Urine WBC Clumps Urine Mucus 07/29/22 07/29/22 07/29/22 01:58 02:58 03:57 WBC Neutrophils # Lymphocytes # Sodium Chloride Carbon Dioxide BUN Creatinine Glucose POC Glucose (mg/dL) 167 H 167 H 174 H Plasma Lactic Acid Roger Phosphorus Magnesium Alkaline Phosphatase Urine Protein Urine Glucose (UA) Urine Ketones Urine Blood Ur Leukocyte Esterase Urine WBC Urine WBC Clumps Urine Mucus 07/29/22 07/29/22 07/29/22 04:00 04:00 04:22 WBC Neutrophils # Lymphocytes # Sodium 131 L Chloride Carbon Dioxide 16 L BUN 26 H Creatinine 1.21 H Glucose 170 H POC Glucose (mg/dL) 185 H Plasma Lactic Acid Roger 4.0 H* Phosphorus 2.4 L Magnesium Alkaline Phosphatase Urine Protein Urine Glucose (UA) Urine Ketones Urine Blood Ur Leukocyte Esterase Urine WBC Urine WBC Clumps Urine Mucus 07/29/22 07/29/22 07/29/22 05:01 06:23 06:25 WBC Neutrophils # Lymphocytes # Sodium Chloride Carbon Dioxide BUN Creatinine Glucose POC Glucose (mg/dL) 181 H 136 H Plasma Lactic Acid Roger 3.8 H* Phosphorus Magnesium Alkaline Phosphatase Urine Protein Urine Glucose (UA) Urine Ketones Urine Blood Ur Leukocyte Esterase Urine WBC Urine WBC Clumps Urine Mucus 07/29/22 07/29/22 07/29/22 07:14 08:11 08:58 WBC Neutrophils # Lymphocytes # Sodium Chloride Carbon Dioxide BUN Creatinine Glucose POC Glucose (mg/dL) 131 H 173 H 167 H Plasma Lactic Acid Roger Phosphorus Magnesium Alkaline Phosphatase Urine Protein Urine Glucose (UA) Urine Ketones Urine Blood Ur Leukocyte Esterase Urine WBC Urine WBC Clumps Urine Mucus - Diagnostic Findings Chest x-ray: image reviewed Assessment and Plan Plan: DKA with mild metabolic acidosis and mild hyperglycemia and electrolyte distur bance secondary to DKA, improving as the patient is being assessed his IV fluids and insulin drip for blood sugar control. Exact trigger could be an underlying UTI Type 1 diabetes mellitus with for blood sugar control and outpatient basis bilaterally on Lantus and insulin 7030 UTI, clinically suspected and the patient's UAs abnormal pending cultures and the patient is currently on IV Rocephin COPD History of hypoglycemia induced seizure disorder Hypothyroidism Multiple sclerosis Diabetic peripheral neuropathy Optic neuritis secondary to multiple sclerosis and the patient diminished vision in both eyes Restless leg syndrome Colonic polyps Anxiety Depression Osteoarthritis and cervical disc disease Plan Continue checking this patient with insulin therapy care protocol and the patient remains an insulin infusion awaiting follow-up labs to evaluate the anion gap and blood sugar control and decided long-acting insulin will be utilized today. Stop the normal saline for now Continue D5 half-normal saline at the rate of 150 mL an hour and the patient seems to be adequately resuscitated Hold antihypertensive medications for now Continued IV Rocephin Urine culture and blood culture Check pro calcitonin level We'll continue to follow make further recommendations based on progress
[2022-07-29 12:06] LABS: Glucose,Whole Blood 265 mg/dL (70-110)
[2022-07-29] MEDS ORDERED: CYCLOBENZAPRINE 10 MG TAB PO PRN (12:21)
[2022-07-29] MEDS ORDERED: QUEtiapine 100 MG TAB PO PRN (12:21)
[2022-07-29] MEDS ORDERED: INSULIN NPH 300 UNIT/3 ML VIAL SQ ONE (12:25)
[2022-07-29] MEDS: INSULIN ASPART (NovoLOG) 100 UNIT/ML VIAL SQ SCH ×5 (12:30→21:07)
[2022-07-29] MEDS: INSULIN REGULAR 100 UNIT in SODIUM CHLORIDE 0.9% 100 ML IV SCH (12:51)
--- NOTE | 2022-07-29 13:22 | P.HPIM ---
History of Present Illness H&P Date: 07/29/22 Chief Complaint: Short of breath This is a 57-year-old patient who follows with Dr. Pino. Chronic stable medical conditions include GERD, Jonnie arthritis, seizure disorder, hypothyroid, MS, diabetic peripheral neuropathy, optic neuritis, decreased vision in the eyes, restless leg syndrome, anxiety depression. Patient stopped smoking a month ago. Patient presents to the ER with 2 days of worsening shortness of breath wheezing cough with white sputum. Poor appetite. Tired rundown. Patient often gets constipated. Accu-Cheks are running high. Found to be in DKA. Put on insulin drip admitted to the ICU. Noted to have a fever to 102 by the paramedics. Having chills. Negative for COVID. This morning in the ICU on insulin drip. Decreased appetite. Review of systems: GEN.: Tired decreased appetite, chills EYES: Decreased vision HEENT: None NECK: None RESPIRATORY: As above CARDIOVASCULAR: None GASTROINTESTINAL: Constipation GENITOURINARY: None MUSCULOSKELETAL: Joint pains LYMPHATICS: None HEMATOLOGICAL: None PSYCHIATRY: None NEUROLOGICAL: Peripheral neuropathy Past medical history to include: COPD, diabetes, GERD, osteoarthritis, seizure disorder, hypothyroid, multiple sclerosis, diabetic peripheral neuropathy, optic neuritis, decreased vision in the eyes,;, restless leg syndrome, colon polyps, anxiety depression Social history: Patient started smoking in 1978. Half a pack a day. More so in the past. Stop smoking May 2022. She was drinking heavy alcohol up to about 2017. Has a roommate Aubree. Occasionally does marijuana. Does use a cane Family history: Mother of heart attack. Physical examination: VITAL SIGNS: 102.4, 108, 17, 1 43 x 61, 98% room air upon presentation GENERAL: BMI 29.3, declining in bed, awake tired EYES: Pupils equal. Conjunctiva normal. HEENT: External appearance of nose and ears normal, oral cavity grossly normal. NECK: JVD not raised; masses not palpable. HEART: First and second heart sounds are normal; no edema. LUNGS: Respiratory rate increased; diminished breath sounds prolonged expira tion, some wheezing ABDOMEN: Soft, nontender, liver spleen not palpable, no masses palpable. PSYCH: [Alert and oriented x3; mood and affect anxious MUSCULOSKELETAL:No Clubbing/cyanosis;muscles-grossly intact. NEUROLOGICAL: Cranial nerves grossly intact; no facial asymmetry, power and sensation grossly intact. LYMPHATICS: No lymph nodes palpable in the axilla and neck INVESTIGATIONS, reviewed in the clinical context: July 29: Sodium 1:30 potassium 3.4. 25 creatinine 1.35 blood glucose 167 magnesia 1.1 albumin 2.3 Telemetry strip: Personally reviewed by me. Sinus rhythm COVID 19/influenza type A type B: Not detected Admission labs: WBC 16.3 hemoglobin 13.6 platelets 228 sodium 125 potassium 4.4 BUN 24 creatinine 1.16 lactic acid 2.3 Serum acetone positive UA positive for leukoesterase Chest x-ray film personally reviewed by me-no obvious infiltrate Previous labs: February 2022: Creatinine 0.78 Assessment and plan: -Acute UTI with sepsis IV ceftriaxone -Diabetic ketoacidosis Patient on insulin drip. Follow electrolytes. -Severe sepsis secondary to UTI IV fluids, IV ceftriaxone -Acute severe COPD exacerbation in a X smoker f DuoNeb 4 times a day. Nebulized Pulmicort and long-acting beta agonist -Hypotension from sepsis and decreased oral intake. Not in shock Hold antihypertensives. IV fluids. -Acute kidney injury, ATN from sepsis. Hold antihypertensives. Including losartan hydrochlorothiazide. No Motrin. -Hyponatremia from decreased food intake. Encourage oral intake. -Diabetes mellitus type 2, chronically on insulin. Uncontrolled with hyperglyce sebastien Resume home dose of insulin. -Diabetic peripheral neuropathy Decrease Neurontin to 400 mg 3 times a day the setting of acute kidney injury -Hypothyroid Synthroid 125 g -GERD Protonix 40 mg -Restless leg syndrome requip 0.25 mg every daily at bedtime Admitted to ICU. Insulin drip. Follow electrolytes. Hold antihypertensives. Sash Finisher consulted. Due to prophylaxis. Cutback dose Neurontin. Hold Motrin. Other home medications resumed. Encourage by mouth intake. 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 OA, efren in Rt ankle. Hx prob w/ cervical discs. Vaccinated for COVID 19 History of Any Multi-Drug Resistant Organisms: None Reported Past Surgical History: Adenoidectomy, Appendectomy, Tonsillectomy, Tubal Ligation Additional Past Surgical History / Comment(s): Laparoscopies. Pain procedures. Past Anesthesia/Blood Transfusion Reactions: Motion Sickness Past Psychological History: Anxiety, Depression Additional Psychological History / Comment(s): Pt resides with a roomate. She uses a cane to ambulate. She cannot drive, she gets to appointments by her insurance company. Smoking Status: Former smoker Past Alcohol Use History: Occasional Additional Past Alcohol Use History / Comment(s): Pt started smoking in 1978 and is a 1/2 ppd smoker. She has smoked more in the past. Pt states she now drinks alcohol occasionally but did drink heavily in the past. Past Drug Use History: Marijuana Additional Drug Use History / Comment(s): "may hit a joint occasionally" - Past Family History Father Additional Family Medical History / Comment(s): She states she is adopted and she does not want anything about her father's history. Mother Family Medical History: Myocardial Infarction (PR) Additional Family Medical History / Comment(s): Mother at age 48 from coronary artery disease. Patient does not have any brothers and sisters. She has one adult son with no major medical problems. Medications and Allergies Home Medications Medication Instructions Recorded Confirmed Type Insulin NPH Hum/Reg Insulin Hm 12 unit SQ BID-W/MEALS 11/10/16 07/28/22 History [humuLIN 70/30 Kwikpen] Ibuprofen [Motrin] 800 mg PO TID PRN 08/08/20 07/28/22 History Losartan/Hydrochlorothiazide 1 tab PO DAILY 08/08/20 07/28/22 History [Losartan-Hctz 100-12.5 mg Tab] QUEtiapine [SEROquel] 100 mg PO HS PRN 08/08/20 07/28/22 History Albuterol Sulfate [Ventolin HFA] 2 puff INHALATION RT-QID PRN 11/03/20 07/28/22 History Cyclobenzaprine [Flexeril] 10 mg PO TID PRN 03/10/22 07/28/22 History Levothyroxine Sodium [Synthroid] 125 mcg PO DAILY 03/10/22 07/28/22 History rOPINIRole HCL [Requip] 0.25 mg PO HS 03/10/22 07/28/22 History Budesonide-Formot 160-4.5 Mcg 1 puff INHALATION RT-BID 07/28/22 07/28/22 History [Symbicort 160-4.5 Mcg Inhaler] Gabapentin [Neurontin] 800 mg PO TID 07/28/22 07/28/22 History Insulin Glargine,Hum.rec.anlog 18 unit SQ DAILY 07/28/22 07/28/22 History [Lantus Solostar Pen] Montelukast [Singulair] 10 mg PO DAILY 07/28/22 07/28/22 History cloNIDine HCL [Catapres] 0.3 mg PO HS 07/28/22 07/28/22 History modafiniL [Provigil] 200 mg PO DAILY PRN 07/28/22 07/28/22 History Allergies Allergy/AdvReac Type Severity Reaction Status Date / Time No Known Allergies Allergy Verified 07/28/22 21:46 Physical Exam Vitals: Vital Signs Temp Pulse Pulse Resp BP BP Pulse Ox 07/29/22 10:02 99 07/29/22 07:00 95 28 H 97/52 100 07/29/22 06:30 92 24 97/52 99 07/29/22 06:00 93 20 97/52 99 07/29/22 05:30 101 H 29 H 107/51 98 07/29/22 05:00 102 H 21 107/52 96 07/29/22 04:30 103 F H 121 H 35 H 148/61 95 07/29/22 04:20 131 H 35 H 148/61 96 07/29/22 04:00 143 H 42 H 174/87 96 07/29/22 03:45 149 H 50 H 154/76 98 07/29/22 03:30 103 F H 147 H 143 H 44 H 176/95 97 07/29/22 03:23 132 H 07/29/22 03:00 99.0 F 103 H 22 113/73 100 07/29/22 00:30 98.4 F 83 18 91/53 100 07/28/22 23:00 98.1 F 73 16 88/42 96 07/28/22 22:00 93 16 102/78 97 07/28/22 20:20 105 H 22 125/84 95 07/28/22 19:19 18 07/28/22 18:45 102.4 F H 108 H 17 143/61 98 Intake and Output 07/28/22 07/29/22 07/29/22 22:59 06:59 14:59 Intake Total 2342.626 280 Output Total 200 75 Balance 2142.626 205 Intake: IV 10 Invasive Line 1 10 Intake, IV Titration 2332.626 280 Amount D5-0.45% NaCl with KCl 300 150 20Meq/l 1,000 ml @ 150 mls/hr IV .Q6H40M [facility] Rx# :[id number] Insulin Regular 100 unit 32.626 0 In Sodium Chloride 0.9% 100 ml @ 0.1 UNITS/KG/HR 6.872 mls/hr IV .[id number] [facility] Rx#:[id number] Sodium Chloride 0.9% 1, 130 000 ml @ 130 mls/hr IV . Q7H42M [facility] Rx#:[id number] Sodium Chloride 0.9% 1, 1000 000 ml @ 999 mls/hr IV . Q1H1M [facility] Rx#:[id number] Sodium Chloride 0.9% 2, 1000 000 ml @ 999 mls/hr IV . Q2H1M ONE Rx#:[id number] Output: Urine 200 75 Other: # Voids 0 Weight 68.039 kg Results CBC & Chem 7: 07/28/22 19:00 07/29/22 08:51 Labs: Abnormal Lab Results - Last 24 Hours (Table) 07/28/22 07/28/22 07/28/22 Range/Units 18:52 19:00 19:00 WBC 16.3 H (3.8-10.6) k/uL Neutrophils # 15.3 H (1.3-7.7) k/uL Lymphocytes # 0.4 L (1.0-4.8) k/uL Sodium (137-145) mmol/L Potassium (3.5-5.1) mmol/L Chloride (98-107) mmol/L Carbon Dioxide (22-30) mmol/L BUN (7-17) mg/dL Creatinine (0.52-1.04) mg/dL Glucose (74-99) mg/dL POC Glucose (mg/dL) 403 H (70-110) mg/dL Plasma Lactic Acid Roger (0.7-2.0) mmol/L Calcium (8.4-10.2) mg/dL Phosphorus (2.5-4.5) mg/dL Magnesium (1.6-2.3) mg/dL AST (14-36) U/L Alkaline Phosphatase (38-126) U/L Total Protein (6.3-8.2) g/dL Albumin (3.5-5.0) g/dL Urine Protein 2+ H (Negative) Urine Glucose (UA) 4+ H (Negative) Urine Ketones 3+ H (Negative) Urine Blood Moderate H (Negative) Ur Leukocyte Esterase Small H (Negative) Urine WBC 34 H (0-5) /hpf Urine WBC Clumps Few H (None) /hpf Urine Mucus Rare H (None) /hpf 07/28/22 07/28/22 07/28/22 Range/Units 19:00 19:00 21:39 WBC (3.8-10.6) k/uL Neutrophils # (1.3-7.7) k/uL Lymphocytes # (1.0-4.8) k/uL Sodium 125 L (137-145) mmol/L Potassium (3.5-5.1) mmol/L Chloride 91 L (98-107) mmol/L Carbon Dioxide 17 L (22-30) mmol/L BUN 24 H (7-17) mg/dL Creatinine 1.16 H (0.52-1.04) mg/dL Glucose 390 H (74-99) mg/dL POC Glucose (mg/dL) (70-110) mg/dL Plasma Lactic Acid Roger 2.3 H* 2.2 H* (0.7-2.0) mmol/L Calcium (8.4-10.2) mg/dL Phosphorus (2.5-4.5) mg/dL Magnesium 1.3 L (1.6-2.3) mg/dL AST (14-36) U/L Alkaline Phosphatase 160 H (38-126) U/L Total Protein (6.3-8.2) g/dL Albumin (3.5-5.0) g/dL Urine Protein (Negative) Urine Glucose (UA) (Negative) Urine Ketones (Negative) Urine Blood (Negative) Ur Leukocyte Esterase (Negative) Urine WBC (0-5) /hpf Urine WBC Clumps (None) /hpf Urine Mucus (None) /hpf 07/28/22 07/28/22 07/29/22 Range/Units 22:11 23:14 00:07 WBC (3.8-10.6) k/uL Neutrophils # (1.3-7.7) k/uL Lymphocytes # (1.0-4.8) k/uL Sodium (137-145) mmol/L Potassium (3.5-5.1) mmol/L Chloride (98-107) mmol/L Carbon Dioxide (22-30) mmol/L BUN (7-17) mg/dL Creatinine (0.52-1.04) mg/dL Glucose (74-99) mg/dL POC Glucose (mg/dL) 339 H 250 H 154 H (70-110) mg/dL Plasma Lactic Acid Roger (0.7-2.0) mmol/L Calcium (8.4-10.2) mg/dL Phosphorus (2.5-4.5) mg/dL Magnesium (1.6-2.3) mg/dL AST (14-36) U/L Alkaline Phosphatase (38-126) U/L Total Protein (6.3-8.2) g/dL Albumin (3.5-5.0) g/dL Urine Protein (Negative) Urine Glucose (UA) (Negative) Urine Ketones (Negative) Urine Blood (Negative) Ur Leukocyte Esterase (Negative) Urine WBC (0-5) /hpf Urine WBC Clumps (None) /hpf Urine Mucus (None) /hpf 07/29/22 07/29/22 07/29/22 Range/Units 00:57 01:00 01:35 WBC (3.8-10.6) k/uL Neutrophils # (1.3-7.7) k/uL Lymphocytes # (1.0-4.8) k/uL Sodium 129 L (137-145) mmol/L Potassium (3.5-5.1) mmol/L Chloride (98-107) mmol/L Carbon Dioxide 18 L (22-30) mmol/L BUN 27 H (7-17) mg/dL Creatinine 1.40 H (0.52-1.04) mg/dL Glucose 159 H (74-99) mg/dL POC Glucose (mg/dL) 192 H (70-110) mg/dL Plasma Lactic Acid Roger 2.1 H* (0.7-2.0) mmol/L Calcium (8.4-10.2) mg/dL Phosphorus (2.5-4.5) mg/dL Magnesium (1.6-2.3) mg/dL AST (14-36) U/L Alkaline Phosphatase (38-126) U/L Total Protein (6.3-8.2) g/dL Albumin (3.5-5.0) g/dL Urine Protein (Negative) Urine Glucose (UA) (Negative) Urine Ketones (Negative) Urine Blood (Negative) Ur Leukocyte Esterase (Negative) Urine WBC (0-5) /hpf Urine WBC Clumps (None) /hpf Urine Mucus (None) /hpf 07/29/22 07/29/22 07/29/22 Range/Units 01:58 02:58 03:57 WBC (3.8-10.6) k/uL Neutrophils # (1.3-7.7) k/uL Lymphocytes # (1.0-4.8) k/uL Sodium (137-145) mmol/L Potassium (3.5-5.1) mmol/L Chloride (98-107) mmol/L Carbon Dioxide (22-30) mmol/L BUN (7-17) mg/dL Creatinine (0.52-1.04) mg/dL Glucose (74-99) mg/dL POC Glucose (mg/dL) 167 H 167 H 174 H (70-110) mg/dL Plasma Lactic Acid Roger (0.7-2.0) mmol/L Calcium (8.4-10.2) mg/dL Phosphorus (2.5-4.5) mg/dL Magnesium (1.6-2.3) mg/dL AST (14-36) U/L Alkaline Phosphatase (38-126) U/L Total Protein (6.3-8.2) g/dL Albumin (3.5-5.0) g/dL Urine Protein (Negative) Urine Glucose (UA) (Negative) Urine Ketones (Negative) Urine Blood (Negative) Ur Leukocyte Esterase (Negative) Urine WBC (0-5) /hpf Urine WBC Clumps (None) /hpf Urine Mucus (None) /hpf 07/29/22 07/29/22 07/29/22 Range/Units 04:00 04:00 04:22 WBC (3.8-10.6) k/uL Neutrophils # (1.3-7.7) k/uL Lymphocytes # (1.0-4.8) k/uL Sodium 131 L (137-145) mmol/L Potassium (3.5-5.1) mmol/L Chloride (98-107) mmol/L Carbon Dioxide 16 L (22-30) mmol/L BUN 26 H (7-17) mg/dL Creatinine 1.21 H (0.52-1.04) mg/dL Glucose 170 H (74-99) mg/dL POC Glucose (mg/dL) 185 H (70-110) mg/dL Plasma Lactic Acid Roger 4.0 H* (0.7-2.0) mmol/L Calcium (8.4-10.2) mg/dL Phosphorus 2.4 L (2.5-4.5) mg/dL Magnesium (1.6-2.3) mg/dL AST (14-36) U/L Alkaline Phosphatase (38-126) U/L Total Protein (6.3-8.2) g/dL Albumin (3.5-5.0) g/dL Urine Protein (Negative) Urine Glucose (UA) (Negative) Urine Ketones (Negative) Urine Blood (Negative) Ur Leukocyte Esterase (Negative) Urine WBC (0-5) /hpf Urine WBC Clumps (None) /hpf Urine Mucus (None) /hpf 07/29/22 07/29/22 07/29/22 Range/Units 05:01 06:23 06:25 WBC (3.8-10.6) k/uL Neutrophils # (1.3-7.7) k/uL Lymphocytes # (1.0-4.8) k/uL Sodium (137-145) mmol/L Potassium (3.5-5.1) mmol/L Chloride (98-107) mmol/L Carbon Dioxide (22-30) mmol/L BUN (7-17) mg/dL Creatinine (0.52-1.04) mg/dL Glucose (74-99) mg/dL POC Glucose (mg/dL) 181 H 136 H (70-110) mg/dL Plasma Lactic Acid Roger 3.8 H* (0.7-2.0) mmol/L Calcium (8.4-10.2) mg/dL Phosphorus (2.5-4.5) mg/dL Magnesium (1.6-2.3) mg/dL AST (14-36) U/L Alkaline Phosphatase (38-126) U/L Total Protein (6.3-8.2) g/dL Albumin (3.5-5.0) g/dL Urine Protein (Negative) Urine Glucose (UA) (Negative) Urine Ketones (Negative) Urine Blood (Negative) Ur Leukocyte Esterase (Negative) Urine WBC (0-5) /hpf Urine WBC Clumps (None) /hpf Urine Mucus (None) /hpf 07/29/22 07/29/22 07/29/22 Range/Units 07:14 08:11 08:51 WBC (3.8-10.6) k/uL Neutrophils # (1.3-7.7) k/uL Lymphocytes # (1.0-4.8) k/uL Sodium 130 L (137-145) mmol/L Potassium 3.4 L (3.5-5.1) mmol/L Chloride (98-107) mmol/L Carbon Dioxide 17 L (22-30) mmol/L BUN 25 H (7-17) mg/dL Creatinine 1.35 H (0.52-1.04) mg/dL Glucose 167 H (74-99) mg/dL POC Glucose (mg/dL) 131 H 173 H (70-110) mg/dL Plasma Lactic Acid Roger (0.7-2.0) mmol/L Calcium 7.0 L (8.4-10.2) mg/dL Phosphorus (2.5-4.5) mg/dL Magnesium (1.6-2.3) mg/dL AST 53 H (14-36) U/L Alkaline Phosphatase (38-126) U/L Total Protein 4.6 L (6.3-8.2) g/dL Albumin 2.3 L (3.5-5.0) g/dL Urine Protein (Negative) Urine Glucose (UA) (Negative) Urine Ketones (Negative) Urine Blood (Negative) Ur Leukocyte Esterase (Negative) Urine WBC (0-5) /hpf Urine WBC Clumps (None) /hpf Urine Mucus (None) /hpf 07/29/22 07/29/22 07/29/22 Range/Units 08:51 08:51 08:58 WBC (3.8-10.6) k/uL Neutrophils # (1.3-7.7) k/uL Lymphocytes # (1.0-4.8) k/uL Sodium (137-145) mmol/L Potassium (3.5-5.1) mmol/L Chloride (98-107) mmol/L Carbon Dioxide (22-30) mmol/L BUN (7-17) mg/dL Creatinine (0.52-1.04) mg/dL Glucose (74-99) mg/dL POC Glucose (mg/dL) 167 H (70-110) mg/dL Plasma Lactic Acid Roger 2.4 H* (0.7-2.0) mmol/L Calcium (8.4-10.2) mg/dL Phosphorus (2.5-4.5) mg/dL Magnesium 1.1 L (1.6-2.3) mg/dL AST (14-36) U/L Alkaline Phosphatase (38-126) U/L Total Protein (6.3-8.2) g/dL Albumin (3.5-5.0) g/dL Urine Protein (Negative) Urine Glucose (UA) (Negative) Urine Ketones (Negative) Urine Blood (Negative) Ur Leukocyte Esterase (Negative) Urine WBC (0-5) /hpf Urine WBC Clumps (None) /hpf Urine Mucus (None) /hpf 07/29/22 Range/Units 09:55 WBC (3.8-10.6) k/uL Neutrophils # (1.3-7.7) k/uL Lymphocytes # (1.0-4.8) k/uL Sodium (137-145) mmol/L Potassium (3.5-5.1) mmol/L Chloride (98-107) mmol/L Carbon Dioxide (22-30) mmol/L BUN (7-17) mg/dL Creatinine (0.52-1.04) mg/dL Glucose (74-99) mg/dL POC Glucose (mg/dL) 188 H (70-110) mg/dL Plasma Lactic Acid Roger (0.7-2.0) mmol/L Calcium (8.4-10.2) mg/dL Phosphorus (2.5-4.5) mg/dL Magnesium (1.6-2.3) mg/dL AST (14-36) U/L Alkaline Phosphatase (38-126) U/L Total Protein (6.3-8.2) g/dL Albumin (3.5-5.0) g/dL Urine Protein (Negative) Urine Glucose (UA) (Negative) Urine Ketones (Negative) Urine Blood (Negative) Ur Leukocyte Esterase (Negative) Urine WBC (0-5) /hpf Urine WBC Clumps (None) /hpf Urine Mucus (None) /hpf Microbiology - Last 24 Hours (Table) 07/28/22 19:00 Urine Culture - Preliminary Urine,Voided
[2022-07-29 13:31] LABS: Albumin 2.3 g/dL (3.5-5.0); Calcium 7.1 mg/dL (8.4-10.2); Magnesium 1.7 mg/dL (1.6-2.3); Phosphorus 1.7 mg/dL (2.5-4.5); Potassium 4.1 mmol/L (3.5-5.1); Total Bilirubin 0.2 mg/dL (0.2-1.3); Total Protein 4.7 g/dL (6.3-8.2)
[2022-07-29] MEDS: MONTELUKAST 10 MG TAB PO SCH (13:52)
[2022-07-29] MEDS: BUDESONIDE 1 MG/2 ML NEBU INHALATION SCH ×2 (14:53→20:31)
[2022-07-29] MEDS: FORMOTEROL FUMARATE 20 MCG/2 ML NEBU INHALATION SCH ×2 (14:54→20:31)
[2022-07-29] MEDS: IPRATROPIUM-ALBUTEROL 3 ML NEB INHALATION SCH ×3 (14:54→20:31)
[2022-07-29] MEDS ORDERED: Phosphorus Replacement Protoco 1 EACH MISC MISCELLANE PRN (16:27)
[2022-07-29] MEDS: GABAPENTIN 400 MG CAP PO SCH ×2 (16:30→21:05)
[2022-07-29 17:03] LABS: Glucose,Whole Blood 275 mg/dL (70-110)
[2022-07-29 20:30] LABS: Glucose,Whole Blood 318 mg/dL (70-110)
[2022-07-29] MEDS ORDERED: INSULIN DETEMIR (LEVEMIR) 100 UNIT/ML SYR SQ SCH (21:00)
[2022-07-29] MEDS: SODIUM PHOSPHATE 10 MMOL in SODIUM CHLORIDE 0.9% 250 ML IVPB SCH (21:04)
[2022-07-29 23:55] LABS: Glucose,Whole Blood 266 mg/dL (70-110)
[2022-07-30] MEDS: SODIUM PHOSPHATE 10 MMOL in SODIUM CHLORIDE 0.9% 250 ML IVPB SCH (01:49)
[2022-07-30 02:18] LABS: Glucose,Whole Blood 209 mg/dL (70-110)
[2022-07-30] MEDS: INSULIN ASPART (NovoLOG) 100 UNIT/ML VIAL SQ SCH ×8 (02:23→22:15)
[2022-07-30] MEDS: ACETAMINOPHEN TAB 325 MG TAB PO PRN ×2 (02:31→15:34)
[2022-07-30 06:17] LABS: Basophils % (A) 0 %; Eosinophils % (A) 0 %; HCT 34.2 % (34.0-46.0); HGB 11.1 gm/dL (11.4-16.0); Lymphocytes # (A) 0.7 k/uL (1.0-4.8); Lymphocytes % (A) 5 %; MCH 32.2 pg (25.0-35.0); MCHC 32.6 g/dL (31.0-37.0); MCV 98.9 fL (80.0-100.0); Mean Platelet Volume 11.6; Monocytes # (A) 0.6 k/uL (0-1.0); Monocytes % (A) 4 %; Neutrophils % (A) 90 %; Platelet Count 176 k/uL (150-450); RBC 3.46 m/uL (3.80-5.40); RDW 12.9 % (11.5-15.5); WBC 14.5 k/uL (3.8-10.6)
[2022-07-30 06:32] LABS: Calcium 7.7 mg/dL (8.4-10.2); Magnesium 2.3 mg/dL (1.6-2.3); Phosphorus 1.6 mg/dL (2.5-4.5)
[2022-07-30 06:36] LABS: Glucose,Whole Blood 90 mg/dL (70-110)
[2022-07-30] MEDS: LEVOTHYROXINE 125 MCG TAB PO SCH (06:47)
[2022-07-30] MEDS: IPRATROPIUM-ALBUTEROL 3 ML NEB INHALATION SCH ×4 (08:01→19:55)
[2022-07-30] MEDS: FORMOTEROL FUMARATE 20 MCG/2 ML NEBU INHALATION SCH ×2 (08:01→19:56)
[2022-07-30] MEDS: BUDESONIDE 1 MG/2 ML NEBU INHALATION SCH ×2 (08:01→19:56)
[2022-07-30] MEDS ORDERED: BENZOCAINE/MENTHOL LOZENG 1 EACH LOZENGE MUCOUS MEM PRN (09:25)
[2022-07-30] MEDS: GABAPENTIN 400 MG CAP PO SCH ×3 (09:35→22:17)
[2022-07-30] MEDS: MONTELUKAST 10 MG TAB PO SCH (09:35)
[2022-07-30 11:10] LABS: Glucose,Whole Blood 103 mg/dL (70-110)
--- NOTE | 2022-07-30 12:07 | P.PN ---
Subjective Progress Note Date: 07/30/22 This is a 57-year-old female patient, poorly controlled diabetes mellitus, was hospitalized yesterday because of fever, cough, the last 50, elevated blood sugars. The patient is known to have type 1 diabetes mellitus. She is been having for blood sugar control on outpatient basis. She came to the hospital because of fever and temperature 102. She also had some dysuria. No shortness of breath. No altered mentation. No chest pain. She did complain of some nausea and limited emesis. She was initially admitted to the medical floor and following that the patient got transferred to the ICU as the patient was found to be in DKA, and the patient was becoming progressively more tachycardic and hy potensive. Note that the patient was admitted to the hospital and initial anion gap was 17 and without treatment and along with treatment, the anion gap Drop- down 14. Initial blood sugar was elevated at 390 and a drop down to 167 today and initial blood sugar was 125 aunts currently up to 131. The patient received IV fluids per protocol for DKA and the patient was started on insulin drip for blood sugar control and following that, the patient was switched to D5 half- normal saline at the rate of 150 mL an hour and the patient was also given normal saline infusion. This morning, the patient is on insulin drip at 2 units an hour and the most recent blood sugar is 167. Lactic acid level has been fluctuating between 2.3 at 3.8. The morning blood work shows a serum bicarbonate of 16 with a sodium level of 131 and a white cell count of 16 with a hemoglobin 13.6. UA was abnormal and it was consistent with an underlying UTI. She is awake and following commands and answering questions appropriately. Note that the patient also had some limited fluctuation renal function. Most recent creatinine from this morning is at 1.2 awaiting follow-up labs. Lactic acid level is being monitored. LFTs are essentially within normal limits. Cultures of been sent and the patient was started on IV Rocephin. She is afebrile today. She is on 3 L O2 nasal cannula with pulse ox of 99%. 07/30/2022, the patient is doing well. No specific complaints. Anion gap is closed and is down to 6 and 0 bicarb is at 19 and his own lives at 128. Blood sugars under adequate control and patient is receiving Levemir insulin. The patient was diagnosed having an underlying gram-negative urine checked infection and the patient remains on IV Rocephin. The patient is hemodynamically stable with a temperature of 98.6. She is on room air oxygen with a pulse ox of 98%. The white cell count is at 14.5 with a hemoglobin of 11.1. The patient had a quite elevated LEVEL OF PRO-CALCITONIN and the level was at 48. This goes along with underlying infection. Nevertheless, the patient has no altered mentation. No chest pain. No angina or palpitations. Her generalized weakness for the is also improving. Objective - Vital Signs Vital signs: Vital Signs Temp 98.6 F 07/30/22 08:00 Pulse 80 07/30/22 11:57 Resp 22 07/30/22 08:00 BP 106/56 07/30/22 08:00 Pulse Ox 98 07/30/22 08:00 FiO2 Intake & Output 07/29/22 07/30/22 07/30/22 18:59 06:59 18:59 Intake Total 1972.865 500 50 Output Total 550 490 120 Balance 1422.865 10 -70 Weight 68.039 kg 72.8 kg Intake: IV 1680 100 50 D5-0.45% NaCl with KCl 950 20Meq/l 1,000 ml @ 50 mls /hr IV .Q20H [facility] Rx#: [id number] Magnesium Sulfate-D5w Pmx 400 100 1 gm In Dextrose/Water 1 100ml.bag @ 100 mls/hr IVPB Q1H [facility] Rx#: [id number] Sodium Chloride 0.9% 1, 230 000 ml @ 130 mls/hr IV . Q7H42M [facility] Rx#:[id number] cefTRIAXone 1 gm In 100 50 Sodium Chloride 0.9% 50 ml @ 100 mls/hr IVPB Q24HR [facility] Rx#:[id number] Intake, IV Titration 292.865 Amount D5-0.45% NaCl with KCl 150 20Meq/l 1,000 ml @ 50 mls /hr IV .Q20H [facility] Rx#: [id number] Insulin Regular 100 unit 12.865 In Sodium Chloride 0.9% 100 ml @ 0.1 UNITS/KG/HR 6.872 mls/hr IV .[id number] [facility] Rx#:[id number] Sodium Chloride 0.9% 1, 130 000 ml @ 130 mls/hr IV . Q7H42M [facility] Rx#:[id number] Oral 400 Output: Urine 550 490 120 Other: Voiding Method Indwelling Catheter Indwelling Catheter Indwelling Catheter # Bowel Movements 1 - Exam GENERAL: Sitting up in bed, awake, on room air oxygen EYES: Pupils equal. Conjunctiva normal. HEENT: External appearance of nose and ears normal, oral cavity grossly normal. NECK: JVD not raised; masses not palpable. HEART: First and second heart sounds are normal; no edema. LUNGS: Respiratory rate normal; diminished breath sounds ABDOMEN: Soft, nontender, liver spleen not palpable, no masses palpable. PSYCH: [Alert and oriented x3; mood and affect anxious . MUSCULOSKELETAL:No Clubbing/cyanosis;muscles-grossly intact. - Labs CBC & Chem 7: 07/30/22 05:32 07/30/22 05:32 Labs: Abnormal Lab Results - Last 24 Hours (Table) 07/29/22 07/29/22 07/29/22 Range/Units 08:51 12:04 12:44 WBC (3.8-10.6) k/uL RBC (3.80-5.40) m/uL Hgb (11.4-16.0) gm/dL Neutrophils # (1.3-7.7) k/uL Lymphocytes # (1.0-4.8) k/uL Sodium 128 L (137-145) mmol/L Carbon Dioxide 17 L (22-30) mmol/L BUN 25 H (7-17) mg/dL Creatinine 1.28 H (0.52-1.04) mg/dL Glucose 253 H (74-99) mg/dL POC Glucose (mg/dL) 265 H (70-110) mg/dL Plasma Lactic Acid Roger (0.7-2.0) mmol/L Calcium 7.1 L (8.4-10.2) mg/dL Phosphorus 1.7 L (2.5-4.5) mg/dL AST 69 H (14-36) U/L Total Protein 4.7 L (6.3-8.2) g/dL Albumin 2.3 L (3.5-5.0) g/dL Procalcitonin 47.00 H (0.02-0.09) ng/mL 07/29/22 07/29/22 07/29/22 Range/Units 12:44 16:30 17:01 WBC (3.8-10.6) k/uL RBC (3.80-5.40) m/uL Hgb (11.4-16.0) gm/dL Neutrophils # (1.3-7.7) k/uL Lymphocytes # (1.0-4.8) k/uL Sodium (137-145) mmol/L Carbon Dioxide (22-30) mmol/L BUN (7-17) mg/dL Creatinine (0.52-1.04) mg/dL Glucose (74-99) mg/dL POC Glucose (mg/dL) 275 H (70-110) mg/dL Plasma Lactic Acid Roger 2.1 H* 2.1 H* (0.7-2.0) mmol/L Calcium (8.4-10.2) mg/dL Phosphorus (2.5-4.5) mg/dL AST (14-36) U/L Total Protein (6.3-8.2) g/dL Albumin (3.5-5.0) g/dL Procalcitonin (0.02-0.09) ng/mL 07/29/22 07/29/22 07/29/22 Range/Units 19:18 20:28 23:53 WBC (3.8-10.6) k/uL RBC (3.80-5.40) m/uL Hgb (11.4-16.0) gm/dL Neutrophils # (1.3-7.7) k/uL Lymphocytes # (1.0-4.8) k/uL Sodium (137-145) mmol/L Carbon Dioxide (22-30) mmol/L BUN (7-17) mg/dL Creatinine (0.52-1.04) mg/dL Glucose (74-99) mg/dL POC Glucose (mg/dL) 318 H 266 H (70-110) mg/dL Plasma Lactic Acid Roger 2.6 H* (0.7-2.0) mmol/L Calcium (8.4-10.2) mg/dL Phosphorus (2.5-4.5) mg/dL AST (14-36) U/L Total Protein (6.3-8.2) g/dL Albumin (3.5-5.0) g/dL Procalcitonin (0.02-0.09) ng/mL 07/30/22 07/30/22 07/30/22 Range/Units 02:16 05:32 05:32 WBC 14.5 H (3.8-10.6) k/uL RBC 3.46 L (3.80-5.40) m/uL Hgb 11.1 L (11.4-16.0) gm/dL Neutrophils # 13.0 H (1.3-7.7) k/uL Lymphocytes # 0.7 L (1.0-4.8) k/uL Sodium 128 L (137-145) mmol/L Carbon Dioxide 19 L (22-30) mmol/L BUN 20 H (7-17) mg/dL Creatinine (0.52-1.04) mg/dL Glucose 106 H (74-99) mg/dL POC Glucose (mg/dL) 209 H (70-110) mg/dL Plasma Lactic Acid Roger (0.7-2.0) mmol/L Calcium 7.7 L (8.4-10.2) mg/dL Phosphorus 1.6 L (2.5-4.5) mg/dL AST (14-36) U/L Total Protein (6.3-8.2) g/dL Albumin (3.5-5.0) g/dL Procalcitonin (0.02-0.09) ng/mL Microbiology - Last 24 Hours (Table) 07/29/22 04:00 Blood Culture - Preliminary Blood No Growth after 24 hours 07/29/22 00:37 Blood Culture - Preliminary Blood No Growth after 24 hours 07/28/22 19:00 Urine Culture - Preliminary Urine,Voided Gram Neg Bacilli Assessment and Plan Plan: DKA with mild metabolic acidosis and mild hyperglycemia and electrolyte disturbance secondary to DKA, recovered and the patient is currently on long- acting insulin Type 1 diabetes mellitus with for blood sugar control and outpatient basis bilaterally on Lantus and insulin 7030, currently on Levemir insulin with adequate blood sugar control UTI, clinically suspected and the patient's UAs abnormal pending cultures and the patient is currently on IV Rocephin. The pro calcitonin level was elevated and the patient remains on IV Rocephin COPD History of hypoglycemia induced seizure disorder Hypothyroidism Multiple sclerosis Diabetic peripheral neuropathy Optic neuritis secondary to multiple sclerosis and the patient diminished vision in both eyes Restless leg syndrome Colonic polyps Anxiety Depression Osteoarthritis and cervical disc disease Plan Continue IV Rocephin Continue Levemir insulin for blood sugar control Monitor pro calcitonin level NovoLog 7 units with meals and a sliding scale coverage Transferred to medical floor
--- NOTE | 2022-07-30 13:29 | P.PN ---
Progress Note - Text Progress Note Date: 07/30/22 Chief Complaint: Short of breath This is a 57-year-old patient who follows with Dr. Pino. Chronic stable medical conditions include GERD, Jonnie arthritis, seizure disorder, hypothyroid, MS, diabetic peripheral neuropathy, optic neuritis, decreased vision in the eyes, restless leg syndrome, anxiety depression. Patient stopped smoking a month ago. Patient presents to the ER with 2 days of worsening shortness of breath wheezing cough with white sputum. Poor appetite. Tired rundown. Patient often gets constipated. Accu-Cheks are running high. Found to be in DKA. Put on insulin drip admitted to the ICU. Noted to have a fever to 102 by the paramedics. Havi ng chills. Negative for COVID. This morning in the ICU on insulin drip. Decreased appetite. Admitted, sepsis, COPD exacerbation. Insulin drip. Bronchodilators. IV ceftriaxone. July 30: ICU/sitting up in bed. Eating better. Has been off insulin drip since yesterday. On long-acting insulin. Breathing better. Has noticed to the regular medical floor. Have the patient set up in a chair. Active Medications Acetaminophen (Acetaminophen Tab 325 Mg Tab) 650 mg PO Q6HR PRN PRN Reason: Fever and/ or Pain Last Admin: 07/30/22 02:31 Dose: 650 mg Albuterol Sulfate (Albuterol Hfa Inhaler) 2 puff INHALATION RT-QID PRN PRN Reason: Shortness Of Breath Albuterol/Ipratropium (Ipratropium-Albuterol 3 Ml Neb) 3 ml INHALATION RT-QID PRN PRN Reason: Shortness Of Breath Or Wheezing Last Admin: 07/29/22 03:23 Dose: 3 ml Albuterol/Ipratropium (Ipratropium-Albuterol 3 Ml Neb) 3 ml INHALATION RT-QID [facility] Last Admin: 07/30/22 11:45 Dose: 3 ml Benzocaine/Menthol (Benzocaine/Menthol Lozeng 1 Each Lozenge) 1 each MUCOUS MEM Q4HR PRN PRN Reason: Cough Budesonide (Budesonide 1 Mg/2 Ml Nebu) 1 mg INHALATION RT-BID [facility] Last Admin: 07/30/22 08:01 Dose: Not Given Cyclobenzaprine HCl (Cyclobenzaprine 10 Mg Tab) 10 mg PO TID PRN PRN Reason: Muscle Pain Formoterol Fumarate (Formoterol Fumarate 20 Mcg/2 Ml Nebu) 20 mcg INHALATION RT-BID [facility] Last Admin: 07/30/22 08:01 Dose: Not Given Gabapentin (Gabapentin 400 Mg Cap) 400 mg PO TID [facility] Last Admin: 07/30/22 09:35 Dose: 400 mg Ceftriaxone Sodium 1 gm/ (Sodium Chloride) 50 mls @ 100 mls/hr IVPB Q24HR [facility]; Protocol Last Admin: 07/30/22 09:35 Dose: 100 mls/hr Insulin Aspart (Insulin Aspart (Novolog) 100 Unit/Ml Vial) 7 unit 0.1 unit/kg (7 unit) SQ AC-TID [facility] Last Admin: 07/30/22 11:12 Dose: Not Given Insulin Aspart (Insulin Aspart (Novolog) 100 Unit/Ml Vial) 0 unit SQ [id number] [facility]; Protocol Last Admin: 07/30/22 11:12 Dose: Not Given Insulin Detemir (Insulin Detemir (Levemir) 100 Unit/Ml Syr) 20 unit 0.3 unit/kg (20 unit) SQ HS [facility] Last Admin: 07/29/22 21:05 Dose: 20 unit Levothyroxine Sodium (Levothyroxine 125 Mcg Tab) 125 mcg PO DAILY@0630 [facility] Last Admin: 07/30/22 06:47 Dose: 125 mcg Miscellaneous Information (Potassium Replacement Protocol 1 Each Misc) 1 each MISCELLANE DAILY PRN; Protocol PRN Reason: Per Protocol Miscellaneous Information (Magnesium Replacement Protocol 1 Each Misc) 1 each MISCELLANE DAILY PRN; Protocol PRN Reason: Per Protocol Miscellaneous Information (Phosphorus Replacement Protoco 1 Each Misc) 1 each MISCELLANE DAILY PRN; Protocol PRN Reason: Per Protocol Montelukast Sodium (Montelukast 10 Mg Tab) 10 mg PO DAILY [facility] Last Admin: 07/30/22 09:35 Dose: 10 mg Naloxone HCl (Naloxone 0.4 Mg/Ml 1 Ml Vial) 0.2 mg IV Q2M PRN PRN Reason: Opioid Reversal Quetiapine Fumarate (Quetiapine 100 Mg Tab) 100 mg PO HS PRN PRN Reason: Insomnia Ropinirole HCl (Ropinirole Hcl 0.25 Mg Tab) 0.25 mg PO HS [facility] Last Admin: 07/29/22 21:05 Dose: 0.25 mg Past medical history to include: COPD, diabetes, GERD, osteoarthritis, seizure disorder, hypothyroid, multiple sclerosis, diabetic peripheral neuropathy, optic neuritis, decreased vision in the eyes,;, restless leg syndrome, colon polyps, anxiety depression Social history: Patient started smoking in 1978. Half a pack a day. More so in the past. Stop smoking May 2022. She was drinking heavy alcohol up to about 2017. Has a roommate Aubree. Occasionally does marijuana. Does use a cane Family history: Mother of heart attack. Physical examination: VITAL SIGNS: T-max 100.5, 86, 22, 106/56, 98% room air GENERAL: Sitting up in bed, eating, awake EYES: Pupils equal. Conjunctiva normal. HEENT: External appearance of nose and ears normal, oral cavity grossly normal. NECK: JVD not raised; masses not palpable. HEART: First and second heart sounds are normal; no edema. LUNGS: Respiratory rate increased; diminished breath sounds ABDOMEN: Soft, nontender, liver spleen not palpable, no masses palpable. PSYCH: [Alert and oriented x3; mood and affect anxious MUSCULOSKELETAL:No Clubbing/cyanosis;muscles-grossly intact. INVESTIGATIONS, reviewed in the clinical context: July 30: 97.5 hemoglobin 11.1 sodium 128 potassium 4 creatinine 0.99 July 29: Sodium 1:30 potassium 3.4. 25 creatinine 1.35 blood glucose 167 magnesia 1.1 albumin 2.3 Telemetry strip: Personally reviewed by me. Sinus rhythm COVID 19/influenza type A type B: Not detected Admission labs: WBC 16.3 hemoglobin 13.6 platelets 228 sodium 125 potassium 4.4 BUN 24 creat inine 1.16 lactic acid 2.3 Serum acetone positive UA positive for leukoesterase Chest x-ray film personally reviewed by me-no obvious infiltrate Previous labs: February 2022: Creatinine 0.78 Assessment and plan: -Acute UTI with sepsis: Some improvement IV ceftriaxone -Diabetic ketoacidosis: Corrected Received insulin drip. Follow electrolytes. -Severe sepsis secondary to UTI: Better IV fluids, IV ceftriaxone -Acute severe COPD exacerbation in a X smoker: Improving f DuoNeb 4 times a day. Nebulized Pulmicort and long-acting beta agonist -Hypotension from sepsis and decreased oral intake. Improving Hold antihypertensives. IV fluids. -Acute kidney injury, ATN from sepsis: Better. Hold antihypertensives. Including losartan hydrochlorothiazide. No Motrin. -Hyponatremia from decreased food intake.: Some improvement Encourage oral intake. -Diabetes mellitus type 2, chronically on insulin. Uncontrolled with hyperglycemia Decrease Levemir to 18 units. Cutback NovoLog to 5 units with before meals -Diabetic peripheral neuropathy Resume home dose of Neurontin -Hypothyroid Synthroid 125 g -GERD Protonix 40 mg -Restless leg syndrome requip 0.25 mg every daily at bedtime Cutback dose of Levemir and NovoLog. Transferred out of ICU. Continue IV ceftriaxone. Repeat labs in the morning.
[2022-07-30] MEDS: ENOXAPARIN 40 MG/0.4 ML SYRINGE SQ SCH (15:36)
[2022-07-30 16:42] LABS: Glucose,Whole Blood 393 mg/dL (70-110)
[2022-07-30] MEDS ORDERED: INSULIN DETEMIR (LEVEMIR) 100 UNIT/ML SYR SQ SCH (21:00)
[2022-07-30 21:34] LABS: Glucose,Whole Blood 376 mg/dL (70-110)
[2022-07-31 03:04] LABS: Glucose,Whole Blood 269 mg/dL (70-110)
[2022-07-31] MEDS: INSULIN ASPART (NovoLOG) 100 UNIT/ML VIAL SQ SCH ×5 (03:10→12:38)
[2022-07-31 04:09] VITALS: RESP 20
[2022-07-31] MEDS: LEVOTHYROXINE 125 MCG TAB PO SCH (07:08)
[2022-07-31] MEDS: IPRATROPIUM-ALBUTEROL 3 ML NEB INHALATION SCH ×2 (07:24→11:22)
[2022-07-31] MEDS: BUDESONIDE 1 MG/2 ML NEBU INHALATION SCH (07:24)
[2022-07-31] MEDS: FORMOTEROL FUMARATE 20 MCG/2 ML NEBU INHALATION SCH (07:24)
[2022-07-31 07:27] LABS: Calcium 7.7 mg/dL (8.4-10.2)
[2022-07-31 07:30] LABS: Basophils % (A) 0 %; Eosinophils % (A) 0 %; HCT 33.4 % (34.0-46.0); HGB 10.9 gm/dL (11.4-16.0); Lymphocytes # (A) 0.9 k/uL (1.0-4.8); Lymphocytes % (A) 9 %; MCH 32.8 pg (25.0-35.0); MCHC 32.8 g/dL (31.0-37.0); MCV 100.1 fL (80.0-100.0); Mean Platelet Volume 11.5; Monocytes # (A) 0.5 k/uL (0-1.0); Monocytes % (A) 5 %; Neutrophils # (A) 8.3 k/uL (1.3-7.7); Neutrophils % (A) 83 %; Platelet Count 178 k/uL (150-450); RBC 3.34 m/uL (3.80-5.40); RDW 13.5 % (11.5-15.5); WBC 10.1 k/uL (3.8-10.6)
[2022-07-31 08:50] LABS: Glucose,Whole Blood 148 mg/dL (70-110)
[2022-07-31] MEDS: GABAPENTIN 400 MG CAP PO SCH (09:38)
[2022-07-31] MEDS: MONTELUKAST 10 MG TAB PO SCH (09:38)
[2022-07-31] MEDS: ENOXAPARIN 40 MG/0.4 ML SYRINGE SQ SCH (09:38)
[2022-07-31] MEDS ORDERED: BENZONATATE 100 MG CAP PO PRN (10:33)
[2022-07-31 10:41] VITALS: TEMP 98.6
[2022-07-31 11:53] LABS: Glucose,Whole Blood 74 mg/dL (70-110)
[2022-07-31 13:20] VITALS: BP 145/75; PULSE 102
--- NOTE | 2022-07-31 15:02 | P.PN ---
Subjective Progress Note Date: 07/31/22 This is a 57-year-old female patient, poorly controlled diabetes mellitus, was hospitalized yesterday because of fever, cough, the last 50, elevated blood sugars. The patient is known to have type 1 diabetes mellitus. She is been having for blood sugar control on outpatient basis. She came to the hospital because of fever and temperature 102. She also had some dysuria. No shortness of breath. No altered mentation. No chest pain. She did complain of some nausea and limited emesis. She was initially admitted to the medical floor and following that the patient got transferred to the ICU as the patient was found to be in DKA, and the patient was becoming progressively more tachycardic and hy potensive. Note that the patient was admitted to the hospital and initial anion gap was 17 and without treatment and along with treatment, the anion gap Drop- down 14. Initial blood sugar was elevated at 390 and a drop down to 167 today and initial blood sugar was 125 aunts currently up to 131. The patient received IV fluids per protocol for DKA and the patient was started on insulin drip for blood sugar control and following that, the patient was switched to D5 half- normal saline at the rate of 150 mL an hour and the patient was also given normal saline infusion. This morning, the patient is on insulin drip at 2 units an hour and the most recent blood sugar is 167. Lactic acid level has been fluctuating between 2.3 at 3.8. The morning blood work shows a serum bicarbonate of 16 with a sodium level of 131 and a white cell count of 16 with a hemoglobin 13.6. UA was abnormal and it was consistent with an underlying UTI. She is awake and following commands and answering questions appropriately. Note that the patient also had some limited fluctuation renal function. Most recent creatinine from this morning is at 1.2 awaiting follow-up labs. Lactic acid level is being monitored. LFTs are essentially within normal limits. Cultures of been sent and the patient was started on IV Rocephin. She is afebrile today. She is on 3 L O2 nasal cannula with pulse ox of 99%. 07/30/2022, the patient is doing well. No specific complaints. Anion gap is closed and is down to 6 and 0 bicarb is at 19 and his own lives at 128. Blood sugars under adequate control and patient is receiving Levemir insulin. The patient was diagnosed having an underlying gram-negative urine checked infection and the patient remains on IV Rocephin. The patient is hemodynamically stable with a temperature of 98.6. She is on room air oxygen with a pulse ox of 98%. The white cell count is at 14.5 with a hemoglobin of 11.1. The patient had a quite elevated LEVEL OF PRO-CALCITONIN and the level was at 48. This goes along with underlying infection. Nevertheless, the patient has no altered mentation. No chest pain. No angina or palpitations. Her generalized weakness for the is also improving. 07/31/2022, the patient is doing well. No specific complaints and the patient got transferred out of the intensive care unit. The patient is currently on Levemir insulin 18 units in addition to NovoLog 5 units with meals and a sliding scale insulin coverage. Urine is infected and patient is currently on IV Rocephin.the urine cultures positive for E. coli. Blood work from today shows a gap of 8 with a serum bicarb of 20 and a white cell count of 10.1 with a hemoglobin of 10.9. No hypoglycemia. No fever. No altered mentation Objective - Vital Signs Vital signs: Vital Signs Temp 98.6 F 07/31/22 08:00 Pulse 102 H 07/31/22 12:00 Resp 20 07/31/22 08:00 BP 145/75 07/31/22 12:00 Pulse Ox 97 07/31/22 12:00 FiO2 21 07/30/22 19:56 Intake & Output 07/30/22 07/31/22 07/31/22 18:59 06:59 18:59 Intake Total 50 480 357 Output Total 320 0 Balance -270 480 357 Intake: IV 50 cefTRIAXone 1 gm In 50 Sodium Chloride 0.9% 50 ml @ 100 mls/hr IVPB Q24HR [facility] Rx#:[id number] Oral 480 357 Output: Urine 320 0 Stool 0 Urine/Stool Mix 0 Emesis 0 Oral Regurgitation 0 Other: Voiding Method Indwelling Catheter Toilet Toilet # Voids 0 # Bowel Movements 0 - Exam GENERAL: Sitting up in bed, awake, on room air oxygen EYES: Pupils equal. Conjunctiva normal. HEENT: External appearance of nose and ears normal, oral cavity grossly normal. NECK: JVD not raised; masses not palpable. HEART: First and second heart sounds are normal; no edema. LUNGS: Respiratory rate normal; diminished breath sounds ABDOMEN: Soft, nontender, liver spleen not palpable, no masses palpable. PSYCH: [Alert and oriented x3; mood and affect anxious . MUSCULOSKELETAL:No Clubbing/cyanosis;muscles-grossly intact. - Labs CBC & Chem 7: 07/31/22 06:16 07/31/22 06:16 Labs: Abnormal Lab Results - Last 24 Hours (Table) 07/30/22 07/30/22 07/30/22 Range/Units 05:32 16:41 21:33 RBC (3.80-5.40) m/uL Hgb (11.4-16.0) gm/dL Hct (34.0-46.0) % MCV (80.0-100.0) fL Neutrophils # (1.3-7.7) k/uL Lymphocytes # (1.0-4.8) k/uL Sodium (137-145) mmol/L Carbon Dioxide (22-30) mmol/L Glucose (74-99) mg/dL POC Glucose (mg/dL) 393 H 376 H (70-110) mg/dL Calcium (8.4-10.2) mg/dL Procalcitonin 65.70 H (0.02-0.09) ng/mL 07/31/22 07/31/22 07/31/22 Range/Units 03:02 06:16 06:16 RBC 3.34 L (3.80-5.40) m/uL Hgb 10.9 L (11.4-16.0) gm/dL Hct 33.4 L (34.0-46.0) % MCV 100.1 H (80.0-100.0) fL Neutrophils # 8.3 H (1.3-7.7) k/uL Lymphocytes # 0.9 L (1.0-4.8) k/uL Sodium 130 L (137-145) mmol/L Carbon Dioxide 20 L (22-30) mmol/L Glucose 149 H (74-99) mg/dL POC Glucose (mg/dL) 269 H (70-110) mg/dL Calcium 7.7 L (8.4-10.2) mg/dL Procalcitonin (0.02-0.09) ng/mL 07/31/22 Range/Units 08:48 RBC (3.80-5.40) m/uL Hgb (11.4-16.0) gm/dL Hct (34.0-46.0) % MCV (80.0-100.0) fL Neutrophils # (1.3-7.7) k/uL Lymphocytes # (1.0-4.8) k/uL Sodium (137-145) mmol/L Carbon Dioxide (22-30) mmol/L Glucose (74-99) mg/dL POC Glucose (mg/dL) 148 H (70-110) mg/dL Calcium (8.4-10.2) mg/dL Procalcitonin (0.02-0.09) ng/mL Microbiology - Last 24 Hours (Table) 07/29/22 04:00 Blood Culture - Preliminary Blood No Growth after 48 hours 07/29/22 00:37 Blood Culture - Preliminary Blood No Growth after 48 hours 07/30/22 11:57 Sputum Culture - Preliminary Sputum 07/28/22 19:00 Urine Culture - Final Urine,Voided Escherichia coli Assessment and Plan Plan: DKA with mild metabolic acidosis and mild hyperglycemia and electrolyte disturbance secondary to DKA, recovered and the patient is currently on long- acting insulin Type 1 diabetes mellitus with for blood sugar control and outpatient basis bilaterally on Lantus and insulin 7030, currently on Levemir insulin with adequate blood sugar control UTI, secondary to E. coli and the patient is currently on IV Rocephin COPD History of hypoglycemia induced seizure disorder Hypothyroidism Multiple sclerosis Diabetic peripheral neuropathy Optic neuritis secondary to multiple sclerosis and the patient diminished vision in both eyes Restless leg syndrome Colonic polyps Anxiety Depression Osteoarthritis and cervical disc disease Plan Continue IV Rocephin Continue Levemir insulin for blood sugar control No active pulmonary or critical care admission. Pulmonary services will sign off and the patient is currently outside intensive care unit
--- NOTE | 2022-07-31 18:49 | P.DS ---
Providers Date of admission: 07/28/22 20:35 Expected date of discharge: 07/31/22 Attending physician: Azeem Keen Consults: 07/29/22 03:42 Consult Physician Urgent Consulting Provider: Laurie Garcia Consult Reason/Comments: increased RR, cough Do you want consulting provider notified?: Already Contacted Primary care physician: [facility] Hospital Course: Chief Complaint: Short of breath This is a 57-year-old patient who follows with Dr. Pino. Chronic stable medical conditions include GERD, Jonnie arthritis, seizure disorder, hypothyroid, MS, diabetic peripheral neuropathy, optic neuritis, decreased vision in the eyes, restless leg syndrome, anxiety depression. Patient stopped smoking a month ago. Patient presents to the ER with 2 days of worsening shortness of breath wheezing cough with white sputum. Poor appetite. Tired rundown. Patient often gets constipated. Accu-Cheks are running high. Found to be in DKA. Put on insulin drip admitted to the ICU. Noted to have a fever to 102 by the paramedics. Having chills. Negative for COVID. This morning in the ICU on insulin drip. Decreased appetite. Admitted, sepsis, COPD exacerbation. Insulin drip. Bronchodilators. IV ceftriaxone. July 30: ICU/sitting up in bed. Eating better. Has been off insulin drip since yesterday. On long-acting insulin. Breathing better. Has noticed to the regular medical floor. Have the patient set up in a chair. July 31: Doing well. Up to the bathroom. Oral intake improved. Discussed with the patient. Complete a short course of Omnicef. Questions answered. Discussion and discharge planning more than 35 minutes Past medical history to include: COPD, diabetes, GERD, osteoarthritis, seizure disorder, hypothyroid, multiple sclerosis, diabetic peripheral neuropathy, optic neuritis, decreased vision in the eyes,;, restless leg syndrome, colon polyps, anxiety depression Social history: Patient started smoking in 1978. Half a pack a day. More so in the past. Stop smoking May 2022. She was drinking heavy alcohol up to about 2016. Has a roommate Aubree. Occasionally does marijuana. Does use a cane Family history: Mother of heart attack. Physical examination: VITAL SIGNS: 98.6, 87, 16, 147/73, 96% room air GENERAL: Sitting up in bed, comfortable EYES: Pupils equal. Conjunctiva normal. HEENT: External appearance of nose and ears normal, oral cavity grossly normal. NECK: JVD not raised; masses not palpable. HEART: First and second heart sounds are normal; no edema. LUNGS: Respiratory rate normal; diminished breath sounds ABDOMEN: Soft, nontender, liver spleen not palpable, no masses palpable. PSYCH: [Alert and oriented x3; mood and affect anxious MUSCULOSKELETAL:No Clubbing/cyanosis;muscles-grossly intact. INVESTIGATIONS, reviewed in the clinical context: July 31: WBC 10.1 hemoglobin 10.9 sodium 1:30 potassium 4 creatinine 0.88 July 30: 97.5 hemoglobin 11.1 sodium 128 potassium 4 creatinine 0.99 July 29: Sodium 1:30 potassium 3.4. 25 creatinine 1.35 blood glucose 167 magnesia 1.1 albumin 2.3 Telemetry strip: Personally reviewed by me. Sinus rhythm COVID 19/influenza type A type B: Not detected Admission labs: WBC 16.3 hemoglobin 13.6 platelets 228 sodium 125 potassium 4.4 BUN 24 creatinine 1.16 lactic acid 2.3 Serum acetone positive UA positive for leukoesterase Chest x-ray film personally reviewed by me-no obvious infiltrate Previous labs: February 2022: Creatinine 0.78 Assessment and plan: -Acute UTI with sepsis: Some improvement IV ceftriaxone. 3 days of Omnicef -Diabetic ketoacidosis: Corrected Received insulin drip. Follow electrolytes. -Severe sepsis secondary to UTI: Better IV fluids, IV ceftriaxone -Acute severe COPD exacerbation in a X smoker: Better DuoNeb 4 times a day. Nebulized Pulmicort and long-acting beta agonist -Hypotension from sepsis and decreased oral intake. Improved -Acute kidney injury, ATN from sepsis: Corrected -Hyponatremia from decreased food intake.: Better Encourage oral intake. -Diabetes mellitus type 2, chronically on insulin. Uncontrolled with hyperglycemia Home dose of insulin -Diabetic peripheral neuropathy Resume home dose of Neurontin -Hypothyroid Synthroid 125 g -GERD Protonix 40 mg -Restless leg syndrome requip 0.25 mg every daily at bedtime Disposition: Home Plan - Discharge Summary New Discharge Prescriptions: New Cefdinir [Omnicef] 300 mg PO Q12HR #6 capsule Continue Ibuprofen [Motrin] 800 mg PO TID PRN PRN Reason: Pain Or Fever > 100.5 Losartan/Hydrochlorothiazide [Losartan-Hctz 100-12.5 mg Tab] 1 tab PO DAILY QUEtiapine [SEROquel] 100 mg PO HS PRN PRN Reason: Insomnia Albuterol Sulfate [Ventolin HFA] 2 puff INHALATION RT-QID PRN PRN Reason: Shortness Of Breath Insulin Glargine,Hum.rec.anlog [Lantus Solostar Pen] 18 unit SQ DAILY Budesonide-Formot 160-4.5 Mcg [Symbicort 160-4.5 Mcg Inhaler] 1 puff INHALATION RT-BID rOPINIRole HCL [Requip] 0.25 mg PO HS Levothyroxine Sodium [Synthroid] 125 mcg PO DAILY Cyclobenzaprine [Flexeril] 10 mg PO TID PRN PRN Reason: Muscle Pain modafiniL [Provigil] 200 mg PO DAILY PRN PRN Reason: TO STAY AWAKE Montelukast [Singulair] 10 mg PO DAILY Gabapentin [Neurontin] 800 mg PO TID Changed Insulin NPH Hum/Reg Insulin Hm [humuLIN 70/30 Kwikpen] 8 unit SQ BID-W/MEALS #0 Discontinued cloNIDine HCL [Catapres] 0.3 mg PO HS Discharge Medication List Ibuprofen [Motrin] 800 mg PO TID PRN 08/08/20 [History] Losartan/Hydrochlorothiazide [Losartan-Hctz 100-12.5 mg Tab] 1 tab PO DAILY 08/08/20 [History] QUEtiapine [SEROquel] 100 mg PO HS PRN 08/08/20 [History] Albuterol Sulfate [Ventolin HFA] 2 puff INHALATION RT-QID PRN 11/03/20 [History] Cyclobenzaprine [Flexeril] 10 mg PO TID PRN 03/10/22 [History] Levothyroxine Sodium [Synthroid] 125 mcg PO DAILY 03/10/22 [History] rOPINIRole HCL [Requip] 0.25 mg PO HS 03/10/22 [History] Budesonide-Formot 160-4.5 Mcg [Symbicort 160-4.5 Mcg Inhaler] 1 puff INHALATION RT-BID 07/28/22 [History] Gabapentin [Neurontin] 800 mg PO TID 07/28/22 [History] Insulin Glargine,Hum.rec.anlog [Lantus Solostar Pen] 18 unit SQ DAILY 07/28/22 [History] Montelukast [Singulair] 10 mg PO DAILY 07/28/22 [History] modafiniL [Provigil] 200 mg PO DAILY PRN 07/28/22 [History] Cefdinir [Omnicef] 300 mg PO Q12HR #6 capsule 07/31/22 [Rx] Insulin NPH Hum/Reg Insulin Hm [humuLIN 70/30 Kwikpen] 8 unit SQ BID-W/MEALS #0 07/31/22 [Rx] Follow up Appointment(s)/Referral(s): Ryan Pino MD [REFERRING] - 08/04/22 7:30 am (This appointment does not provide transportation, if this does not work please call cand reschedule.) Patient Instructions/Handouts: Diabetic Ketoacidosis (DC), Community Acquired Pneumonia (DC) Discharge Disposition: HOME SELF-CARE
== END 2022-07-31 15:51 | disposition home or self-care (01) | DRG 871 ==
LOC: EC 18:35 → 3SCARD 20:35 → 2SICU 07-29 04:22 → 3SCARD 07-30 17:12
PROVIDERS: ADMIT Hospitalist; ATTEND Hospitalist
DX: A41.51 Sepsis due to Escherichia coli [E. coli] (principal); E10.10 Type 1 diabetes mellitus with ketoacidosis without coma; N17.0 Acute kidney failure with tubular necrosis; E87.1 Hypo-osmolality and hyponatremia; H46.9 Unspecified optic neuritis; J44.0 Chronic obstructive pulmonary disease with (acute) lower respiratory infection; N39.0 Urinary tract infection, site not specified; J44.1 Chronic obstructive pulmonary disease with (acute) exacerbation; Z20.822 Contact with and (suspected) exposure to COVID-19; R65.20 Severe sepsis without septic shock; G35 Multiple sclerosis; G40.909 Epilepsy, unspecified, not intractable, without status epilepticus; F10.21 Alcohol dependence, in remission; E10.42 Type 1 diabetes mellitus with diabetic polyneuropathy; Z79.4 Long term (current) use of insulin; I10 Essential (primary) hypertension; M19.90 Unspecified osteoarthritis, unspecified site; E03.9 Hypothyroidism, unspecified; H47.012 Ischemic optic neuropathy, left eye; H54.7 Unspecified visual loss; K21.9 Gastro-esophageal reflux disease without esophagitis; G25.81 Restless legs syndrome; F32.A Depression, unspecified; F41.9 Anxiety disorder, unspecified; Z79.890 Hormone replacement therapy; Z79.51 Long term (current) use of inhaled steroids; Z79.52 Long term (current) use of systemic steroids; Z79.2 Long term (current) use of antibiotics; Z87.19 Personal history of other diseases of the digestive system; Z87.891 Personal history of nicotine dependence; Z82.49 Family history of ischemic heart disease and other diseases of the circulatory system; G47.00 Insomnia, unspecified; Z86.010 Personal history of colon polyps; K59.00 Constipation, unspecified; Z79.899 Other long term (current) drug therapy; M50.30 Other cervical disc degeneration, unspecified cervical region; Z98.51 Tubal ligation status
CPT/HCPCS: 36415; 71045; 80048; 80051; 80053; 81001; 82009; 82565; 82947; 83605; 83735; 84100; 84145; 84520; 85025; 85610; 85730; 87040; 87070; 87077; 87086; 87186; 87205; 87502; 87635; 94640; 94760; 96361; 96365; 96375; 96376; 99285

== ENCOUNTER → 2022-12-07 | Outpatient (CLI) | payer MEDICARE, OTHER ==
[2022-12-07 17:21] LABS: INR 0.9 (<1.2); Partial Thromboplastin Time 24.7 sec (22.0-30.0); Prothrombin Time 9.7 sec (9.0-12.0)
[2022-12-07 23:20] LABS: Basophils # (A) 0.03 X 10*3/uL (0.00-0.10); Basophils % (A) 0.4 %; Eosinophils # (A) 0.16 X 10*3/uL (0.04-0.35); Eosinophils % (A) 2.2 %; HCT 37.6 % (37.2-46.3); Immature Grans, Automated 0.4 %; Lymphocytes # (A) 2.89 X 10*3/uL (0.90-5.00); Lymphocytes % (A) 40.4 %; MCHC 31.9 g/dL (32.0-37.0); MCV 100.3 fL (80.0-97.0); Mean Platelet Volume 12.5 fL (9.5-12.2); Monocytes # (A) 0.59 X 10*3/uL (0.20-1.00); Monocytes % (A) 8.2 %; NRBC Per 100 WBC 0 /100 WBCS (0.0-0.0); Neutrophils # (A) 3.46 X 10*3/uL (1.80-7.70); Neutrophils % (A) 48.4 %; Platelet Count 340 X 10*3/uL (140-440); RBC 3.75 X 10*6/uL (4.10-5.20); RDW 13.9 % (11.5-14.5); WBC 7.16 X 10*3/uL (4.50-10.00)
[2022-12-08 00:01] LABS: African American GFR (CKD) 64.1 (60.0-200.0); Anion Gap 7.8 mmol/L (10.00-18.00); BUN/Creat Ratio 22.18 Ratio (12.00-20.00); Blood Urea Nitrogen 24.4 mg/dL (9.0-27.0); Calcium 9.4 mg/dL (8.7-10.3); Carbon Dioxide 25.2 mmol/L (20.0-27.5); Non-African American GFR(CKD) 55.3 (60.0-200.0); Potassium 4.4 mmol/L (3.5-5.5)
[2022-12-08 04:49] LABS: Appearance,Urine Clear (Clear); Bilirubin,Urine Negative (Negative); Blood,Urine Negative (Negative); Color,Urine Yellow (Yellow); Ketones,Urine Trace mg/dL (Negative); Nitrite,Urine Negative (Negative); PH, Urine 5.5 (5.0-8.0); Specific Gravity,Urine 1.015 (1.001-1.030); Urobilinogen,Urine 0.2 (0.2,1.0)
[2022-12-08 06:27] LABS: Bacteria,Urine 1+ /HPF (None Seen)
--- NOTE | 2022-12-08 07:52 | XR ---
EXAMINATION TYPE: XR chest 2V DATE OF EXAM: 12/07/2022 4:16 PM COMPARISON: Chest radiographs from 07/29/2022 TECHNIQUE: XR chest 2V Frontal and lateral views of the chest. CLINICAL INDICATION:Female, 57 years old with history of Z01.818; FINDINGS: Lungs/Pleura: There is no evidence of pleural effusion, focal consolidation, or pneumothorax. Pulmonary vascularity: Unremarkable. Heart/mediastinum: Cardiomediastinal silhouette is unremarkable. Musculoskeletal: No acute osseous pathology. IMPRESSION: No acute cardiopulmonary disease/process.
== END | disposition home or self-care (01) ==
LOC: LABPAT 15:21
PROVIDERS: ATTEND Orthopaedic Surgery Orthopaedic Surgery of the Spine
DX: Z01.812 Encounter for preprocedural laboratory examination (principal); M48.02 Spinal stenosis, cervical region
CPT/HCPCS: 71046; 80048; 81001; 85025; 85610; 85730; 93005

== ENCOUNTER 2022-12-16 09:50 | Inpatient (IN) | payer MEDICARE, OTHER ==
[~2022-12-16 09:50] MED LIST changes: +HYDROmorphone 0.5 MG/0.5 ML SYRINGE IVP PRN; -LACTATED RINGERS 1,000 ML IV SCH; +LIDOCAINE 1% (10MG/ML) FOR IV START INTRADERMA PRN; -LIDOCAINE 1% 20 ML VIAL (10MG/ML) FOR IV START INTRADERMA PRN; +ceFAZolin 1,000 MG in SODIUM CHLORIDE 0.9% IRRIGATIO 1,000 ML IRRIGATION PRN
[2022-12-16] MEDS ORDERED: ONDANSETRON 4 MG/2 ML VIAL ONE (11:21)
[2022-12-16 11:29] LABS: Glucose,Whole Blood 254 mg/dL (70-110)
[2022-12-16] MEDS: LACTATED RINGERS 1,000 ML IV SCH (11:30)
[2022-12-16] MEDS ORDERED: MIDAZOLAM 2 MG/2 ML VIAL IV ONE (11:33)
[2022-12-16] MEDS ORDERED: INSULIN ASPART (NovoLOG) 100 UNIT/ML VIAL SQ ONE ×2 (11:37→21:00)
[2022-12-16] MEDS ORDERED: GLYCOPYRROLATE 0.2 MG/ML 2 ML VIAL ONE (13:06)
[2022-12-16] MEDS ORDERED: ROCURONIUM 10 MG/ML (5 ML VIAL) IV ONE (13:06)
[2022-12-16] MEDS ORDERED: PHENYLEPHRINE-0.9% NACL SYG 1,000 MCG/10 ML SYRINGE ONE (13:06)
[2022-12-16] MEDS ORDERED: MIDAZOLAM 2 MG/2 ML VIAL ONE (13:06)
[2022-12-16] MEDS ORDERED: DEXAMETHASONE SOD PHOS (MDV) 100 MG/10 ML VIAL ONE (13:06)
[2022-12-16] MEDS ORDERED: PROPOFOL 10 MG/ML 20 ML VIAL IV ONE ×2 (13:06)
[2022-12-16] MEDS ORDERED: fentaNYL (PF) 50 MCG/ML 2 ML AMP ONE (13:06)
[2022-12-16] MEDS ORDERED: NEOSTIGMINE 1 MG/ML 10 ML VIAL ONE (13:06)
[2022-12-16] MEDS ORDERED: SUCCINYLCHOLINE CHLORIDE 200 MG/10 ML VIAL IV ONE (13:06)
[2022-12-16] MEDS ORDERED: SCOPOLAMINE 1 MG/72 HR PATCH TRANSDERM ONE (13:08)
[2022-12-16] MEDS ORDERED: BUPIVACAIN-EPI 0.25%-1:200,000 30 ML VIAL SQ ONE (14:00)
--- NOTE | 2022-12-16 14:36 | XR ---
EXAMINATION TYPE: XR cervical spine 1V DATE OF EXAM: 12/16/2022 2:25 PM INDICATION: Patient age:Female; 57 years old; Reason for study: Cerv Fusion; COMPARISON: 12/16/2022 TECHNIQUE: The cervical spine was imaged in lateral reduction. FINDINGS: Cervical fusion present. Partial visualization of the cervical spine predominantly the upper spine. S urgical device between the C4 and C5 disc space. Endotracheal tube in place. No evidence of fracture. Mild degeneration changes of the cervical spine. IMPRESSION: No evidence of fracture. Mild degeneration changes cervical spine with surgical device terminating between the C4 and C5 disc space.
[2022-12-16] MEDS ORDERED: LACTATED RINGERS 1,000 ML IV ONE (15:45)
[2022-12-16] MEDS ORDERED: BENZOCAINE/MENTHOL LOZENG 1 EACH LOZENGE MUCOUS MEM PRN (15:48)
[2022-12-16] MEDS ORDERED: ONDANSETRON 4 MG/2 ML VIAL IVP PRN (15:48)
[2022-12-16] MEDS ORDERED: diazePAM 5 MG TAB PO PRN (15:48)
[2022-12-16] MEDS ORDERED: CYCLOBENZAPRINE 10 MG TAB PO PRN (15:51)
[2022-12-16 15:56] LABS: Glucose,Whole Blood 205 mg/dL (70-110)
[2022-12-16] MEDS ORDERED: VARENICLINE 0.5 MG TAB PO SCH (16:00)
--- NOTE | 2022-12-16 16:04 | P.OP ---
Date of Procedure: 12/16/22 Preoperative Diagnosis: Cervical myelopathy, severe cervical stenosis C4 5 C5 6 C6 7 with stenosis behind the vertebral body of C6, disc herniation C4 5 C5 6 C6 7, cervical kyphosis, degenerative disc disease, neck pain, upper extremity radiculopathy, upper shoulder weakness Postoperative Diagnosis: Same Anesthesia: GETA Pathology: none sent Condition: stable Disposition: PACU Description of Procedure: BRIEF OPERATIVE NOTE Preoperative Diagnosis:Cervical myelopathy, severe cervical stenosis C4 5 C5 6 C6 7 with stenosis behind the vertebral body of C6, disc herniation C4 5 C5 6 C6 7, cervical kyphosis, degenerative disc disease, neck pain, upper extremity radiculopathy, upper shoulder weakness Postoperative Diagnosis:Cervical myelopathy, severe cervical stenosis C4 5 C5 6 C6 7 with stenosis behind the vertebral body of C6, disc herniation C4 5 C5 6 C6 7, cervical kyphosis, degenerative disc disease, neck pain, upper extremity radiculopathy, upper shoulder weakness Procedure: Anterior cervical decompression with discectomy and fusion C4 5 C5 6 C6 7 Anterior cervical decompression with corpectomy of the vertebral body of C6 Local autogenous bone grafting Placement of interbody graft at C4 5 Placement of interbody cage from C5 to 7 Application of anterior cervical plate C4 5 6 and 7 Surgeon: Dr. Omer Rn Correctional: Fede Harman is present throughout the entire the case persistence during positioning, dissection, exposure, visualization, and all crucial elements of the case as well as closure. Anesthesia: General anesthesia Estimated blood loss: approximately 50 mL Complications: None apparent Components implanted: K2M [place] anterior cervical plate system with screws, one Vikos interbody allograft bone graft, and one 90 mm interbody peek cage filled with local autogenous bone graft Disposition: To recovery room in good stable condition. OPERATIVE INDICATIONS The patient has had long-standing issues in their neck and upper extremities. patient's been having worsening of her symptoms and developing evidence of weakness at her upper extremities with changes in her gait and dexterity in her hands. She's not have severe stenosis from C4 to C7 with evidence of some spinal cord signal change and stenosis were tightened vertebral body of C6 as well. She evidence of disc herniation C4 5 C5 6 and C6 7 all of which were contributing to her myelopathic symptoms and stenosis at her cervical spine. The patient has been through conservative treatment. she is having worsening despite aggressive conservative care. We discussed various treatment options including surgery, and the patient wishes to proceed with surgery We discussed the risk, patient's alternatives and benefits of surgery including but not limited to, risk of bleeding risk of infection, risk of need for further surgery, risk of decreased, loss of motion, muscle function, malunion nonunion, hardware failure, nerve damage, paralysis, heart attack, and . OPERATIVE SUMMARY After discussing all the risks, patient alternatives and benefits at length, the patient elected to proceed with surgical intervention, signed informed consent, and presented for their procedure. The patient was seen and examined in the preoperative holding area and the surgical site was marked. The patient was given antibiotics and brought to the operating room. The patient was positioned on the operating room table in a supine position being careful to pad any bony prominences and pressure points. The patient was sedated and intubated by anesthesia in standard fashion. Once the airway and C- spine were stabilized the patient's arms were padded and tucked at her side, with her shoulders gently taped. The head was placed in a donut pad with the neck in good neutral alignment and position. We were careful to maintain the patient's cervical spine and good neutral alignment and position throughout. The patient was prepped and draped in a normal standard fashion. An appropriate timeout and keystone protocol performed. We were able to proceed with the surgery. The local wound area was infiltrated with local anesthetic. An incision was made transversely approximately 2-1/2 cm over the appropriate levels C5 6 on the right . Dissection was taken down subcutaneously to the level of the platysma which was split in line with its fibers. Dissection was taken with a carotid approach, with the trachea and esophagus medial and the carotid sheath laterally. We dissected down to the anterior surface of the vertebral bodies from C4 to C7 . Intraoperative x-ray was taken which showed a marker at the appropriate level of C4 5 . With the appropriate level positively confirmed, we were able to proceed with discectomy at the appropriate levels. All of the operative levels were exposed appropriately. The patient had all their twitches back, and there was no evidence of recurrent laryngeal issue. The wound was copiously irrigated and suctioned dry as had been done periodically throughout the case. At the appropriate level/levels, [place]4 5 [place] [address] I established an annulotomy with an 11 blade scalpel. A discectomy was performed with a combination of pituitary rongeurs, curettes, a high-speed bur, and Kerrison rongeurs. The posterior longitudinal ligament was taken down as were any posterior osteophytes. This gave good central and bilateral foraminal decompression. There is no evidence of any dural tear or leak. The endplates were prepared with a high-speed bur. With the endplates in good parallel position, I was able to size for the appropriate size interbody graft. The wound was irrigated and suctioned dry the graft was prepared and malleted into position. It had good alignment and position with the anterior surface flush with the anterior surface of the vertebral bodies. the discectomy was done similarly the appropriate levels, first at C4 5 and then at C5 6 and then at C6 7. It was obvious that there is significant stenosis behind C6 vertebral body as well which could not be addressed with discectomy alone. I felt that she required a corpectomy to further decompress the cervical spine. We proceeded with removal of the vertebral body of C6. The corpectomy provided additional decompression where had excellent decompression centrally and at the bilateral neural foramen at each level. There is no evidence of any dural tear or leak. The bone that was removed from the corpectomy was saved and prepared for local autogenous bone grafting to fill the interbody peek cage. with anesthesia performing gentle in-line traction is able to size for the appropriate size interbody cage from C5 to C7. The appropriate size cage was prepared and filled with local and has bone graft and abdomen was copiously irrigated and suctioned dry, anesthesia performing gentle in-line traction I was able to place the cage in good alignment and position with excellent fit and fill. The endplates had good contact and good relative stability. With the grafts intact, I was able to measure and contour and appropriate sized plate. The plate was positioned at the midline over the appropriate levels from C4 to C7 . Screw holes were established with a hand drill and drill guide. Screws were placed in good alignment and position with excellent bony purchase. They were seated under the locking device. The construct was checked and found to be stable. Intraoperative x-ray was taken which showed good alignment and position of the implants at the appropriate levels. There was no evidence of any dural tear or leak. Good hemostasis was maintained. The wound was copiously irrigated and suctioned dry as had been done periodically throughout the case. The platysma was closed with absorbable suture. The subcutaneous tissue was closed. The subcuticular tissue was closed with absorbable suture. The wound was cleaned and dried and dressed appropriately. A hard cervical collar was placed appropriately. The patient was woken up by anesthesia, extubated, transferred back gently to their hospital bed and brought to the recovery room in good stable condition. The patient will be admitted to the hospital for appropriate postoperative care, medical management and monitoring. We will continue to follow them closely about the postoperative course.
--- NOTE | 2022-12-16 16:29 | XR ---
EXAMINATION TYPE: XR cervical spine 1V DATE OF EXAM: 12/16/2022 3:38 PM INDICATION: Patient age:Female; 57 years old; Reason for study: FINAL HARDWARE PLACEMENT; COMPARISON: 12/16/2022 TECHNIQUE: The cervical spine was imaged in lateral view. FINDINGS: Postsurgical changes of the spine. Fixation hardware is visualized. The fixation hardware involving C 4 and C5 appears intact. Poor visualization of the inferior fixation hardware due to patient's should er. What is visualized and appears in appropriate alignment. Endotracheal tube is in place. IMPRESSION: Postsurgical changes no obvious postsurgical complication.
[2022-12-16] MEDS: SODIUM CHLORIDE 0.9% 1,000 ML IV SCH (17:18)
[2022-12-16] MEDS: GABAPENTIN 400 MG CAP PO SCH ×2 (17:27→21:32)
[2022-12-16] MEDS: INSULN ASP PRT/INSULIN ASPART 100 UNIT/ML 10 ML VIAL SQ SCH (17:27)
[2022-12-16] MEDS: CYCLOBENZAPRINE 10 MG TAB PO PRN (17:27)
[2022-12-16] MEDS: HYDROmorphone 0.5 MG/0.5 ML SYRINGE IVP PRN (18:46)
[2022-12-16 20:43] LABS: Glucose,Whole Blood 417 mg/dL (70-110)
[2022-12-16] MEDS ORDERED: cloNIDine HCL 0.1 MG TAB PO SCH (21:00)
[2022-12-16] MEDS: NITROFURANTOIN MONOHYD/M-CRYST 100 MG CAP PO SCH (21:32)
[2022-12-17] MEDS: HYDROcodone/APAP 5-325MG 1 EACH TAB PO PRN ×2 (00:37→08:28)
[2022-12-17 01:10] LABS: Glucose,Whole Blood 314 mg/dL (70-110)
[2022-12-17] MEDS: ALBUTEROL NEBULIZED 2.5 MG/3 ML INHALATION PRN ×2 (01:29→08:23)
[2022-12-17] MEDS: INSULIN ASPART (NovoLOG) 100 UNIT/ML VIAL SQ SCH ×2 (01:36→06:32)
[2022-12-17] MEDS: HYDROmorphone 0.5 MG/0.5 ML SYRINGE IVP PRN (01:54)
[2022-12-17] MEDS: SODIUM CHLORIDE 0.9% 1,000 ML IV SCH (05:30)
--- NOTE | 2022-12-17 05:30 | P.DS ---
Providers Date of admission: 12/16/22 11:02 Attending physician: Link Omer Consults: 12/16/22 21:14 Consult Physician Routine Consulting Provider: Azeem Keen Consult Reason/Comments: medical management Do you want consulting provider notified?: Yes, Notify in am Primary care physician: Ryan Odette [place] Hospital Course: The patient presented on the day of admission as per their operative note. She feels her upper extremities are making good progress in terms of numbness tingling. She has been ambulatory around her room and she is tolerating soft diet. Her pain is being controlled initially with IV medications and she is transitioning over to orals. She is voiding freely. Physical Exam The incision site is clean dry and intact. There is no erythema no drainage. There is no purulence no evidence of infection. Her neck is soft and supple Abdomen soft and nontender. Chest has good excursion with deep inspiration and expiration. The patient has active and passive range of motion intact at the upper and lower extremities. There is no acute change in neurologic status. She has good motion throughout her arm she is able to train her room. Hospital Course Postoperative day #1 status post anterior cervical decompression with discectomy at C4 5 C5 6 C6 7 corpectomy of C6 for her cervical myelopathy with severe cervical stenosis upper extremity radiculopathy and weakness. The patient has been making good progress postoperatively. She feels she is making progress in terms of the sensation in her hands. She's not sure about the strength quite yet. Her neck seems to be healing well and appropriately. They have completed the prophylactic antibiotics without any signs or symptoms of infection. The patient has been able to advance their diet, and is tolerating diet adequately. The pain was initially controlled with IV medications and is now controlled appropriately with oral medications. The patient has been able to increase their mobilization. The patient has progressed appropriately. We will have case management see her to help with arrangements for home as she lives by herself with a roommate. Her blood sugars initially were somewhat high immediately postop and they have been that her manner monitored and managed. Hospital in her normalizing appropriately with diabetes. She feels she will be able to control this at home she will need close follow-up with her primary care physician in this regard as well. I think they are in good stable condition for discharge today. They will be sent home with appropriate prescriptions. I answered their questions to the best of my ability in a language that they can understand and they are agreeable with the plan. They will follow up as directed with her primary care physician and with us. Patient Condition at Discharge: Good Plan - Discharge Summary Discharge Rx Participant: No New Discharge Prescriptions: New HYDROcodone/APAP 10-325MG [[place] 10-325] 1 tab PO Q6HR PRN 7 Days #28 tab PRN Reason: Pain Nitrofurantoin Monohyd/M-Cryst [Macrobid] 100 mg PO Q12HR 5 Days #10 cap Cyclobenzaprine [Flexeril] 10 mg PO TID PRN #60 tab PRN Reason: Spasms No Action Ibuprofen [Motrin] 800 mg PO TID PRN PRN Reason: Pain Or Fever > 100.5 Losartan/Hydrochlorothiazide [Losartan-Hctz 100-12.5 mg Tab] 1 tab PO DAILY Albuterol Sulfate [Ventolin HFA] 2 puff INHALATION RT-QID PRN PRN Reason: Shortness Of Breath Insulin Glargine,Hum.rec.anlog [Lantus Solostar Pen] 18 unit SQ DAILY nitrofurantoin macrocrystaL [Nitrofurantoin] 100 mg PO BID Varenicline [Chantix Starter Pack] 0.5 mg PO DIRECTED rOPINIRole HCL [Requip] 0.25 mg PO HS Levothyroxine Sodium [Synthroid] 150 mcg PO DAILY Cyclobenzaprine [Flexeril] 10 mg PO TID PRN PRN Reason: Muscle Pain modafiniL [Provigil] 200 mg PO DAILY PRN PRN Reason: TO STAY AWAKE Montelukast [Singulair] 10 mg PO DAILY Gabapentin [Neurontin] 800 mg PO TID Insulin NPH Hum/Reg Insulin Hm [humuLIN 70/30 Kwikpen] 8 unit SQ BID-W/MEALS #0 cloNIDine HCL [Catapres] 0.3 mg PO HS Venlafaxine HCl [Effexor XR] 150 mg PO DAILY Discharge Medication List Ibuprofen [Motrin] 800 mg PO TID PRN 08/08/20 [History] Losartan/Hydrochlorothiazide [Losartan-Hctz 100-12.5 mg Tab] 1 tab PO DAILY 08/08/20 [History] Albuterol Sulfate [Ventolin HFA] 2 puff INHALATION RT-QID PRN 11/03/20 [History] Cyclobenzaprine [Flexeril] 10 mg PO TID PRN 03/10/22 [History] Levothyroxine Sodium [Synthroid] 150 mcg PO DAILY 03/10/22 [History] rOPINIRole HCL [Requip] 0.25 mg PO HS 03/10/22 [History] Gabapentin [Neurontin] 800 mg PO TID 07/28/22 [History] Insulin Glargine,Hum.rec.anlog [Lantus Solostar Pen] 18 unit SQ DAILY 07/28/22 [History] Montelukast [Singulair] 10 mg PO DAILY 07/28/22 [History] modafiniL [Provigil] 200 mg PO DAILY PRN 07/28/22 [History] Insulin NPH Hum/Reg Insulin Hm [humuLIN 70/30 Kwikpen] 8 unit SQ BID-W/MEALS #0 07/31/22 [Rx] Varenicline [Chantix Starter Pack] 0.5 mg PO DIRECTED 12/11/22 [History] Venlafaxine HCl [Effexor XR] 150 mg PO DAILY 12/11/22 [History] cloNIDine HCL [Catapres] 0.3 mg PO HS 12/11/22 [History] nitrofurantoin macrocrystaL [Nitrofurantoin] 100 mg PO BID 12/11/22 [History] Nitrofurantoin Monohyd/M-Cryst [Macrobid] 100 mg PO Q12HR 5 Days #10 cap 12/16/22 [Rx] Cyclobenzaprine [Flexeril] 10 mg PO TID PRN #60 tab 12/17/22 [Rx] HYDROcodone/APAP 10-325MG [[place] 10-325] 1 tab PO Q6HR PRN 7 Days #28 tab 12/17/22 [Rx] Follow up Appointment(s)/Referral(s): Link Omer DO [Doctor of Osteopathic Medicine] - 2 Weeks Ryan Pino MD [Primary Care Provider] - 1 Week Activity/Diet/Wound Care/Special Instructions: Keep site clean. May shower with waterproof Tegaderm intact. Do not soak in a tub. After 72 hours postoperatively, patient May remove dressing and then may shower with area uncovered. Leave glue intact and allow it to fray off on its own. May ambulate as tolerated. Avoid heavy or rigorous activity. No repetitive bending twisting or lifting. No overhead work. Keep hard cervical collar intact. We are cervical collar while sleeping. May remove for 15 minutes per day for showering. Discharge Disposition: HOME SELF-CARE
[2022-12-17 06:07] LABS: Glucose,Whole Blood 316 mg/dL (70-110)
[2022-12-17] MEDS ORDERED: LEVOTHYROXINE 75 MCG TAB PO SCH (06:30)
[2022-12-17] MEDS: CYCLOBENZAPRINE 10 MG TAB PO PRN (06:32)
[2022-12-17] MEDS: LACTATED RINGERS 1,000 ML IV SCH (08:03)
[2022-12-17 08:06] VITALS: BP 162/72; RESP 17; TEMP 98.7
[2022-12-17] MEDS: GABAPENTIN 400 MG CAP PO SCH (08:11)
[2022-12-17] MEDS: NITROFURANTOIN MONOHYD/M-CRYST 100 MG CAP PO SCH (08:11)
[2022-12-17] MEDS: INSULN ASP PRT/INSULIN ASPART 100 UNIT/ML 10 ML VIAL SQ SCH (08:11)
[2022-12-17 08:34] VITALS: PULSE 80
[2022-12-17] MEDS ORDERED: LOSARTAN 50 MG TAB PO SCH (09:00)
[2022-12-17] MEDS ORDERED: MONTELUKAST 10 MG TAB PO SCH (09:00)
[2022-12-17] MEDS ORDERED: NON FORMULARY DRUG (Losartan/Hydrochlorothiazide [Losartan-Hctz 100-12.5 Mg Tab] 1 EACH Ta PO SCH (09:00)
[2022-12-17] MEDS ORDERED: hydroCHLOROthiazide 12.5 MG CAP PO SCH (09:00)
[2022-12-17] MEDS ORDERED: INSULIN DETEMIR (LEVEMIR) 100 UNIT/ML SYR SQ SCH (09:00)
[2022-12-17] MEDS ORDERED: VENLAFAXINE HCL ER 150 MG CAP PO SCH (09:00)
== END 2022-12-17 09:37 | disposition home or self-care (01) | DRG 472 ==
LOC: EDSTATUS 10:40 → 2ORMAIN 11:02 → 4SSUR 16:16
PROVIDERS: ADMIT Orthopaedic Surgery Orthopaedic Surgery of the Spine; ATTEND Orthopaedic Surgery Orthopaedic Surgery of the Spine
PROC: 0RG2070 Fusion of 2 or more Cervical Vertebral Joints with Autologous Tissue Substitute, Anterior Approach, Anterior Column, Open Approach (ICD-10-PCS; principal; 2022-12-16 13:35)
PROC: 0RG20A0 Fusion of 2 or more Cervical Vertebral Joints with Interbody Fusion Device, Anterior Approach, Anterior Column, Open Approach (ICD-10-PCS; principal; 2022-12-16 13:35)
PROC: 00NW0ZZ Release Cervical Spinal Cord, Open Approach (ICD-10-PCS; principal; 2022-12-16 13:35)
PROC: 0RB30ZZ Excision of Cervical Vertebral Disc, Open Approach (ICD-10-PCS; principal; 2022-12-16 13:35)
DX: M48.02 Spinal stenosis, cervical region (principal); M50.021 Cervical disc disorder at C4-C5 level with myelopathy; M50.022 Cervical disc disorder at C5-C6 level with myelopathy; M50.023 Cervical disc disorder at C6-C7 level with myelopathy; E11.9 Type 2 diabetes mellitus without complications; M40.202 Unspecified kyphosis, cervical region; M54.12 Radiculopathy, cervical region; Z88.1 Allergy status to other antibiotic agents; E03.9 Hypothyroidism, unspecified; Z71.3 Dietary counseling and surveillance
CPT/HCPCS: 72020; 81001; 86850; 86900; 86901; 94640; 94760

== ENCOUNTER 2022-12-23 01:29 | Emergency (ER) | payer MEDICARE, OTHER ==
[2022-12-23 01:38] VITALS: BP 124/59; PULSE 80; RESP 19; TEMP 98.6
[2022-12-23] MEDS ORDERED: SODIUM CHLORIDE 0.9% 500 ML 500 ML IV ONE (01:41)
[2022-12-23 02:24] LABS: Basophils % (A) 0 %; Eosinophils % (A) 0 %; HCT 29.4 % (34.0-46.0); HGB 9.7 gm/dL (11.4-16.0); Lymphocytes # (A) 1.5 k/uL (1.0-4.8); Lymphocytes % (A) 14 %; MCHC 33.1 g/dL (31.0-37.0); MCV 96.4 fL (80.0-100.0); Mean Platelet Volume 9.4; Monocytes # (A) 0.5 k/uL (0-1.0); Monocytes % (A) 5 %; Neutrophils # (A) 8.5 k/uL (1.3-7.7); Neutrophils % (A) 79 %; Platelet Count 333 k/uL (150-450); RBC 3.05 m/uL (3.80-5.40); RDW 13.5 % (11.5-15.5); WBC 10.8 k/uL (3.8-10.6)
[2022-12-23 02:29] LABS: INR 0.9 (<1.2); Partial Thromboplastin Time 24.8 sec (22.0-30.0); Prothrombin Time 9.9 sec (9.0-12.0)
[2022-12-23 02:39] LABS: Albumin 3.7 g/dL (3.5-5.0); Calcium 8.8 mg/dL (8.4-10.2); Potassium 4.3 mmol/L (3.5-5.1); Total Bilirubin 0.3 mg/dL (0.2-1.3); Total Protein 6.6 g/dL (6.3-8.2)
--- NOTE | 2022-12-23 03:14 | ED ---
General Adult HPI - General Chief complaint: Skin/Abscess/Foreign Body Stated complaint: Neck Pain Time Seen by Provider: 12/23/22 01:36 Source: patient, EMS, RN notes reviewed Mode of arrival: EMS Limitations: no limitations - History of Present Illness Initial comments: 57-year-old female presents emergency Department chief complaint of neck swelling. Patient states she is one-week status post cervical fusion by Dr. David states that she did have a cough like she was sick with cough is getting better. She states she is coughing a bit and she noticed swelling the anterior surface of her neck around the area of her incision. She has been in her collar she has not taken off her c-collar. Patient denies a fever she states it is uncomfortable for swollen and difficult to swallow at times. - Related Data Home Medications Medication Instructions Recorded Confirmed Ibuprofen [Motrin] 800 mg PO TID PRN 08/08/20 12/11/22 Losartan/Hydrochlorothiazide 1 tab PO DAILY 08/08/20 12/11/22 [Losartan-Hctz 100-12.5 mg Tab] Albuterol Sulfate [Ventolin HFA] 2 puff INHALATION RT-QID PRN 11/03/20 12/11/22 Cyclobenzaprine [Flexeril] 10 mg PO TID PRN 03/10/22 12/11/22 Levothyroxine Sodium [Synthroid] 150 mcg PO DAILY 03/10/22 12/11/22 rOPINIRole HCL [Requip] 0.25 mg PO HS 03/10/22 12/11/22 Gabapentin [Neurontin] 800 mg PO TID 07/28/22 12/11/22 Insulin Glargine,Hum.rec.anlog 18 unit SQ DAILY 07/28/22 12/11/22 [Lantus Solostar Pen] Montelukast [Singulair] 10 mg PO DAILY 07/28/22 12/11/22 modafiniL [Provigil] 200 mg PO DAILY PRN 07/28/22 12/11/22 Varenicline [Chantix Starter Pack] 0.5 mg PO DIRECTED 12/11/22 12/11/22 Venlafaxine HCl [Effexor XR] 150 mg PO DAILY 12/11/22 12/11/22 cloNIDine HCL [Catapres] 0.3 mg PO HS 12/11/22 12/11/22 nitrofurantoin macrocrystaL 100 mg PO BID 12/11/22 12/11/22 [Nitrofurantoin] Previous Rx's Medication Instructions Recorded Insulin NPH Hum/Reg Insulin Hm 8 unit SQ BID-W/MEALS #0 07/31/22 [humuLIN 70/30 Kwikpen] Nitrofurantoin Monohyd/M-Cryst 100 mg PO Q12HR 5 Days #10 cap 12/16/22 [Macrobid] Cyclobenzaprine [Flexeril] 10 mg PO TID PRN #60 tab 12/17/22 HYDROcodone/APAP 10-325MG [[place] 1 tab PO Q6HR PRN 7 Days #28 tab 12/17/22 10-325] Allergies Allergy/AdvReac Type Severity Reaction Status Date / Time No Known Allergies Allergy Verified 12/23/22 01:38 Review of Systems ROS Statement: Those systems with pertinent positive or pertinent negative responses have been documented in the HPI. ROS Other: All systems not noted in ROS Statement are negative. 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 OA, efren in Rt ankle. Hx prob w/ cervical discs. Vaccinated for COVID 19 History of Any Multi-Drug Resistant Organisms: None Reported Past Surgical History: Adenoidectomy, Appendectomy, Tonsillectomy, Tubal Ligation Additional Past Surgical History / Comment(s): Laparoscopies. Pain procedures. Past Anesthesia/Blood Transfusion Reactions: Motion Sickness Additional Past Anesthesia/Blood Transfusion Reaction / Comment(s): no blood transfusions Past Psychological History: Anxiety, Depression Smoking Status: Current some day smoker Past Alcohol Use History: Occasional Past Drug Use History: Marijuana - Past Family History Mother Family Medical History: Myocardial Infarction ([place]) Additional Family Medical History / Comment(s): Mother at age 48 from coronary artery disease. Patient does not have any brothers and sisters. She has one adult son with no major medical problems. General Exam Limitations: no limitations General appearance: alert, in no apparent distress Head exam: Present: atraumatic, normocephalic, normal inspection Eye exam: Present: normal appearance, PERRL, EOMI. Absent: scleral icterus, conjunctival injection, periorbital swelling ENT exam: Present: normal exam, normal oropharynx, mucous membranes moist Neck exam: Present: tenderness. Absent: normal inspection (Anterior neck there is incision noted with surrounding swelling and mild erythema), meningismus, full ROM (Patient [place] J collar), lymphadenopathy Respiratory exam: Present: normal lung sounds bilaterally. Absent: respiratory distress, wheezes, rales, rhonchi, stridor Cardiovascular Exam: Present: regular rate, normal rhythm, normal heart sounds. Absent: systolic murmur, diastolic murmur, rubs, gallop, clicks Neurological exam: Present: alert, oriented X3, CN II-XII intact Course Vital Signs 12/23/22 01:35 Temperature 98.6 F Pulse Rate 80 Respiratory 19 Rate Blood Pressure 124/59 O2 Sat by Pulse 98 Oximetry Medical Decision Making - Medical Decision Making Was pt. sent in by a medical professional or institution (, PA, ADVERTISING COLUMNIST, urgent care, hospital, or correction...) When possible be specific @ -No Did you speak to anyone other than the patient for history (EMS, parent, family, police, friend...)? What history was obtained from this source @ -No Did you review nursing and triage notes (agree or disagree)? Why? @ -I reviewed and agree with nursing and triage notes Were old charts reviewed (outside hosp., previous admission, EMS record, old EKG, old radiological studies, urgent care reports/EKG's, correction records)? Report findings @ -Reviewed surgical/operative notes one week ago Differential Diagnosis (chest pain, altered mental status, abdominal pain women, abdominal pain men, vaginal bleeding, weakness, fever, dyspnea, syncope, headache, dizziness, GI bleed, back pain, seizure, CVA, palpatations, mental health)? @ -not applicable EKG interpreted by me (3pts min.). @ -As above X-rays interpreted by me (1pt min.). @ -None done CT interpreted by me (1pt min.). @ -CT soft tissue neck shows postsurgical changes, mild air and fluid consistent with uncomplicated postsurgical changes U/S interpreted by me (1pt. min.). @ -None done What testing was considered but not performed or refused? (CT, X-rays, U/S, labs)? Why? @ -None What meds were considered but not given or refused? Why? @ -None Did you discuss the management of the patient with other professionals (professionals i.e. , PA, ADVERTISING COLUMNIST, lab, RT, psych nurse, social services designee, metal rolling mill operator, teacher, aoc director combat operations officer, correctional casework specialist)? Give summary @ -I did discuss the case with Dr. Holman call or contact centre operator for Dr. Omer recommends patient to be seen in office in [address] Omer. He feels this is most likely just postsurgical inflammatory changes patient has no fever and will be evaluated in office for possible infection. Was smoking cessation discussed for >3mins.? @ -No Was critical care preformed (if so, how long)? @ -No Were there social determinants of health that impacted care today? How? (Homelessness, low income, unemployed, alcoholism, drug addiction, transportation, low edu. Level, literacy, decrease access to med. care, skilled nursing, rehab)? @ -No Was there de-escalation of care discussed even if they declined (Discuss DNR or withdrawal of care, Hospice)? DNR status @ -No What co-morbidities impacted this encounter? (DM, HTN, Smoking, COPD, CAD, Cancer, CVA, ARF, Chemo, Hep., AIDS, mental health diagnosis, sleep apnea, morbid obesity)? @ -None Was patient admitted / discharged? Hospital course, mention meds given and route, prescriptions, significant lab abnormalities, going to OR and other pertinent info. @ -hospital course Undiagnosed new problem with uncertain prognosis? @ -No Drug Therapy requiring intensive monitoring for toxicity (Heparin, Nitro, Insulin, Cardizem)? @ -No Were any procedures done? @ -No Diagnosis/symptom? @ -[Status post cervical fusion Acute, or Chronic, or Acute on Chronic? @ -Acute Uncomplicated (without systemic symptoms) or Complicated (systemic symptoms)? @ -Uncomplicated Side effects of treatment? @ -No Exacerbation, Progression, or Severe Exacerbation? @ -No Poses a threat to life or bodily function? How? (Chest pain, [place], [place], pneumonia, PE, COPD, DKA, ARF, appy, cholecystitis, CVA, Diverticulitis, Homicidal, Suicidal, threat to staff... and all critical care pts) @ -No - Lab Data Result diagrams: 12/23/22 01:57 12/23/22 01:57 Lab Results 12/23/22 12/23/22 12/23/22 Range/Units 01:57 01:57 01:57 WBC 10.8 H (3.8-10.6) k/uL RBC 3.05 L (3.80-5.40) m/uL Hgb 9.7 L (11.4-16.0) gm/dL Hct 29.4 L (34.0-46.0) % MCV 96.4 (80.0-100.0) fL MCH 32.0 (25.0-35.0) pg MCHC 33.1 (31.0-37.0) g/dL RDW 13.5 (11.5-15.5) % Plt Count 333 (150-450) k/uL MPV 9.4 Neutrophils % 79 % Lymphocytes % 14 % Monocytes % 5 % Eosinophils % 0 % Basophils % 0 % Neutrophils # 8.5 H (1.3-7.7) k/uL Lymphocytes # 1.5 (1.0-4.8) k/uL Monocytes # 0.5 (0-1.0) k/uL Eosinophils # 0.0 (0-0.7) k/uL Basophils # 0.0 (0-0.2) k/uL PT 9.9 (9.0-12.0) sec INR 0.9 (<1.2) APTT 24.8 (22.0-30.0) sec Sodium 137 (137-145) mmol/L Potassium 4.3 (3.5-5.1) mmol/L Chloride 101 (98-107) mmol/L Carbon Dioxide 28 (22-30) mmol/L Anion Gap 8 mmol/L BUN 21 H (7-17) mg/dL Creatinine 1.37 H (0.52-1.04) mg/dL Est GFR (CKD-EPI)AfAm 49 (>60 ml/min/1.73 sqM) Est GFR (CKD-EPI)NonAf 43 (>60 ml/min/1.73 sqM) Glucose 133 H (74-99) mg/dL Plasma Lactic Acid Roger (0.7-2.0) mmol/L Calcium 8.8 (8.4-10.2) mg/dL Total Bilirubin 0.3 (0.2-1.3) mg/dL AST 36 (14-36) U/L ALT 33 (4-34) U/L Alkaline Phosphatase 137 H (38-126) U/L Total Protein 6.6 (6.3-8.2) g/dL Albumin 3.7 (3.5-5.0) g/dL 12/23/22 Range/Units 01:57 WBC (3.8-10.6) k/uL RBC (3.80-5.40) m/uL Hgb (11.4-16.0) gm/dL Hct (34.0-46.0) % MCV (80.0-100.0) fL MCH (25.0-35.0) pg MCHC (31.0-37.0) g/dL RDW (11.5-15.5) % Plt Count (150-450) k/uL MPV Neutrophils % % Lymphocytes % % Monocytes % % Eosinophils % % Basophils % % Neutrophils # (1.3-7.7) k/uL Lymphocytes # (1.0-4.8) k/uL Monocytes # (0-1.0) k/uL Eosinophils # (0-0.7) k/uL Basophils # (0-0.2) k/uL PT (9.0-12.0) sec INR (<1.2) APTT (22.0-30.0) sec Sodium (137-145) mmol/L Potassium (3.5-5.1) mmol/L Chloride (98-107) mmol/L Carbon Dioxide (22-30) mmol/L Anion Gap mmol/L BUN (7-17) mg/dL Creatinine (0.52-1.04) mg/dL Est GFR (CKD-EPI)AfAm (>60 ml/min/1.73 sqM) Est GFR (CKD-EPI)NonAf (>60 ml/min/1.73 sqM) Glucose (74-99) mg/dL Plasma Lactic Acid Roger 1.6 (0.7-2.0) mmol/L Calcium (8.4-10.2) mg/dL Total Bilirubin (0.2-1.3) mg/dL AST (14-36) U/L ALT (4-34) U/L Alkaline Phosphatase (38-126) U/L Total Protein (6.3-8.2) g/dL Albumin (3.5-5.0) g/dL Disposition Clinical Impression: Status post cervical spinal fusion, Neck swelling Disposition: HOME SELF-CARE Condition: Stable Additional Instructions: Please call orthopedic office and follow-up today as directed. Please return to the Emergency Department if symptoms worsen or any other concerns. Is patient prescribed a controlled substance at d/c from ED?: No Referrals: Ryan Pino MD [Primary Care Provider] - 1-2 days Link Omer DO [Doctor of Osteopathic Medicine] - 1-2 days Time of Disposition: 03:54
--- NOTE | 2022-12-23 03:32 | CT ---
EXAMINATION TYPE: CT soft tissue neck w con DATE OF EXAM: 12/23/2022 COMPARISON: None HISTORY: cervical fusion few days ago, pt reports increased pain & edema CT DLP: 228.1 mGycm Automated exposure control for dose reduction was used. CONTRAST: Performed with IV Contrast, patient injected with 80 mL of Isovue 300. Images obtained from the skull base to the T1 vertebra with the IV contrast. These cervical vertebra have normal alignment. There is plate with screws fusing anteriorly the cervi chioma spine from the level of C4-C7. Posterior elements are intact. Facet joints are intact. There is m ild cervical hypertrophic facet arthropathy. There is some prevertebral fluid accumulation at the ant erior fusion site. There is subcutaneous edema and soft tissue edema around the right side of the tra dax and right thyroid lobe consistent with the surgery site. There is no pathologic enhancement. No focal bone destruction. Epiglottis is normal. No focal bone destruction. IMPRESSION: Multilevel anterior fusion surgery with postsurgical changes in the anterior soft tissues. Minimal so ft tissue air and fluid consistent with uncomplicated postsurgical changes. I do not see convincing e vidence for an abscess. There is evidence for edema around the right thyroid lobe.
== END 2022-12-23 04:13 | disposition home or self-care (01) ==
LOC: EC 01:29
DX: R22.1 Localized swelling, mass and lump, neck (principal); F12.90 Cannabis use, unspecified, uncomplicated; F32.A Depression, unspecified; E07.9 Disorder of thyroid, unspecified; I10 Essential (primary) hypertension; E11.649 Type 2 diabetes mellitus with hypoglycemia without coma; E11.42 Type 2 diabetes mellitus with diabetic polyneuropathy; Z79.890 Hormone replacement therapy; Z90.89 Acquired absence of other organs; Z98.51 Tubal ligation status; Z98.1 Arthrodesis status; Z79.4 Long term (current) use of insulin; Z79.899 Other long term (current) drug therapy; Z87.891 Personal history of nicotine dependence
CPT/HCPCS: 36415; 80053; 83605; 85025; 85610; 85730; 87040; 70491; 99284; 96360; 96361; Q9967

== ENCOUNTER → 2023-02-11 | Outpatient (CLI) | payer MEDICARE, OTHER ==
--- NOTE | 2023-02-11 16:01 | CT ---
EXAMINATION TYPE: CT ankle RT wo con DATE OF EXAM: 02/11/2023 COMPARISON: CT right ankle July 04, 2020 HISTORY: right ankle pain x 2 years. Primary osteoarthritis. Pseudoarthrosis after fusion. CT DLP: 244.1 mGycm Automated exposure control for dose reduction was used. FINDINGS: There is interval surgery with placement of 3 large fixating screws through the tibial talar joint. T here is persistent sclerosis and subchondral cystic change at this level. A few tiny bony fragments a re seen. There is no bony bridging or arthrodesis identified. Joint space is actually slightly widene d on current study versus prior study. Distal fibula is intact. The subtalar joint is preserved. Ther e is small to moderate size inferior calcaneal spur redemonstrated. Osseous structures are deminerali zed similar to prior. There is mild to moderate narrowing throughout the mid foot joints redemonstrat ed similar to prior. There is fairly moderate small vessel arterial vascular calcification redemonstr ated. IMPRESSION: Interval surgery at the tibiotalar joint with increasing subchondral cystic change and sc lerosis at this level. Alignment is stable and similar to prior exam.
== END | disposition home or self-care (01) ==
LOC: RADCTMAIN 15:04
PROVIDERS: ATTEND Podiatrist
DX: M19.071 Primary osteoarthritis, right ankle and foot (principal); M96.0 Pseudarthrosis after fusion or arthrodesis

== ENCOUNTER 2023-02-24 17:34 | Emergency (ER) | payer MEDICARE, OTHER ==
[2023-02-24] MEDS ORDERED: KETOROLAC 15 MG/ML 1 ML VIAL IVP STA (18:09)
--- NOTE | 2023-02-24 18:37 | XR ---
EXAMINATION TYPE: XR foot complete RT DATE OF EXAM: 02/24/2023 COMPARISON: NONE HISTORY: Pain and swelling TECHNIQUE: 3 views FINDINGS: The metatarsals are intact. There are multiple screws fusing the ankle joint. There is plan tar calcaneal spurring. There is some mild lucency around the screws and ankle joint space is still v isible. IMPRESSION: Ankle joint fusion surgery with some evidence for incomplete fusion. Plantar calcaneal spurring. No acute fracture.
[2023-02-24] MEDS ORDERED: KETOROLAC 15 MG/ML 1 ML VIAL IM STA (18:57)
[2023-02-24 19:06] LABS: Basophils % (A) 0 %; Eosinophils % (A) 0 %; HCT 37.3 % (34.0-46.0); HGB 12.8 gm/dL (11.4-16.0); Lymphocytes % (A) 23 %; MCH 31.8 pg (25.0-35.0); MCHC 34.2 g/dL (31.0-37.0); MCV 93.1 fL (80.0-100.0); Mean Platelet Volume 9.8; Monocytes # (A) 0.4 k/uL (0-1.0); Monocytes % (A) 5 %; Neutrophils # (A) 6.2 k/uL (1.3-7.7); Neutrophils % (A) 70 %; Platelet Count 296 k/uL (150-450); RBC 4.01 m/uL (3.80-5.40); RDW 13.2 % (11.5-15.5); WBC 8.9 k/uL (3.8-10.6)
[2023-02-24 19:19] LABS: Calcium 9.3 mg/dL (8.4-10.2); Potassium 4.6 mmol/L (3.5-5.1); Total Bilirubin 0.4 mg/dL (0.2-1.3); Total Protein 7.4 g/dL (6.3-8.2); Uric Acid 4.8 mg/dL (3.7-7.4)
--- NOTE | 2023-02-24 20:17 | ED ---
Lower Extremity Injury HPI - General Chief Complaint: Extremity Injury, Lower Stated Complaint: Right foot injury Time Seen by Provider: 02/24/23 18:02 Source: patient Mode of arrival: ambulatory Limitations: no limitations - History of Present Illness Initial Comments: Patient is a 58-year-old female presenting with chief complaint of right foot p ain. Patient states that about 2 days ago she had a seizure, when she woke up from the seizure she started experiencing right foot pain. She is unsure if maybe someone stepped on the foot that time as she was in quite a small space she states. She states that the foot has become swollen and slightly warm. It is slightly red. She is having no fevers or chills. No numbness or tingling. No red streaking up the leg. She is having pain over the second toe as well. - Related Data Home Medications Medication Instructions Recorded Confirmed Ibuprofen [Motrin] 800 mg PO TID PRN 08/08/20 12/11/22 Losartan/Hydrochlorothiazide 1 tab PO DAILY 08/08/20 12/11/22 [Losartan-Hctz 100-12.5 mg Tab] Albuterol Sulfate [Ventolin HFA] 2 puff INHALATION RT-QID PRN 11/03/20 12/11/22 Cyclobenzaprine [Flexeril] 10 mg PO TID PRN 03/10/22 12/11/22 Levothyroxine Sodium [Synthroid] 150 mcg PO DAILY 03/10/22 12/11/22 rOPINIRole HCL [Requip] 0.25 mg PO HS 03/10/22 12/11/22 Gabapentin [Neurontin] 800 mg PO TID 07/28/22 12/11/22 Insulin Glargine,Hum.rec.anlog 18 unit SQ DAILY 07/28/22 12/11/22 [Lantus Solostar Pen] Montelukast [Singulair] 10 mg PO DAILY 07/28/22 12/11/22 modafiniL [Provigil] 200 mg PO DAILY PRN 07/28/22 12/11/22 Varenicline [Chantix Starter Pack] 0.5 mg PO DIRECTED 12/11/22 12/11/22 Venlafaxine HCl [Effexor XR] 150 mg PO DAILY 12/11/22 12/11/22 cloNIDine HCL [Catapres] 0.3 mg PO HS 12/11/22 12/11/22 nitrofurantoin macrocrystaL 100 mg PO BID 12/11/22 12/11/22 [Nitrofurantoin] Previous Rx's Medication Instructions Recorded Insulin NPH Hum/Reg Insulin Hm 8 unit SQ BID-W/MEALS #0 07/31/22 [humuLIN 70/30 Kwikpen] Nitrofurantoin Monohyd/M-Cryst 100 mg PO Q12HR 5 Days #10 cap 12/16/22 [Macrobid] Cyclobenzaprine [Flexeril] 10 mg PO TID PRN #60 tab 12/17/22 HYDROcodone/APAP 10-325MG [[place] 1 tab PO Q6HR PRN 7 Days #28 tab 12/17/22 10-325] Indomethacin [Indocin] 50 mg PO TID #21 capsule 02/24/23 Sulfamethox-Tmp 800-160Mg [Bactrim 1 tab PO Q12HR 7 Days #14 tab 02/24/23 DS 800-160 mg] Allergies Allergy/AdvReac Type Severity Reaction Status Date / Time No Known Allergies Allergy Verified 02/24/23 17:51 Review of Systems ROS Statement: Those systems with pertinent positive or pertinent negative responses have been documented in the HPI. ROS Other: All systems not noted in ROS Statement are negative. 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 OA, efren in Rt ankle. Hx prob w/ cervical discs. Vaccinated for COVID 19 History of Any Multi-Drug Resistant Organisms: None Reported Past Surgical History: Adenoidectomy, Appendectomy, Tonsillectomy, Tubal Ligation Additional Past Surgical History / Comment(s): Laparoscopies. Pain procedures. Past Anesthesia/Blood Transfusion Reactions: Motion Sickness Additional Past Anesthesia/Blood Transfusion Reaction / Comment(s): no blood transfusions Past Psychological History: Anxiety, Depression Smoking Status: Current some day smoker Past Alcohol Use History: Occasional Past Drug Use History: Marijuana - Past Family History Mother Family Medical History: Myocardial Infarction ([place]) Additional Family Medical History / Comment(s): Mother at age 48 from coronary artery disease. Patient does not have any brothers and sisters. She has one adult son with no major medical problems. General Exam Limitations: no limitations General appearance: alert, in no apparent distress Head exam: Present: atraumatic, normocephalic, normal inspection Eye exam: Present: normal appearance Neck exam: Present: normal inspection Respiratory exam: Present: normal lung sounds bilaterally. Absent: respiratory distress, wheezes, rales, rhonchi, stridor Cardiovascular Exam: Present: regular rate, normal rhythm, normal heart sounds. Absent: systolic murmur, diastolic murmur, rubs, gallop, clicks Right Foot/Toe exam: Present: full ROM, tenderness, swelling Neurovascular tendon exam: Present: no vascular compromise Neurological exam: Present: alert, oriented X3, CN II-XII intact Psychiatric exam: Present: normal affect, normal mood Skin exam: Present: warm, dry, intact, normal color. Absent: rash Course Vital Signs 02/24/23 02/24/23 17:49 20:36 Temperature 98.3 F 97.8 F Pulse Rate 92 63 Respiratory 18 16 Rate Blood Pressure 131/79 96/62 O2 Sat by Pulse 100 99 Oximetry Medical Decision Making - Medical Decision Making Was pt. sent in by a medical professional or institution ([facility]CE[facility] Cordero, JAPANESE TUTOR, urgent care, hospital, or [place] health care facility...) When possible be specific @ -No Did you speak to anyone other than the patient for history (EMS, parent, family, police, friend...)? What history was obtained from this source @ -No Did you review nursing and triage notes (agree or disagree)? Why? @ -I reviewed and agree with nursing and triage notes Were old charts reviewed (outside hosp., previous admission, EMS record, old EKG, old radiological studies, urgent care reports/EKG's, [place] health care facility records)? Report findings @ -No old charts were reviewed Differential Diagnosis (chest pain, altered mental status, abdominal pain women, abdominal pain men, vaginal bleeding, weakness, fever, dyspnea, syncope, headache, dizziness, GI bleed, back pain, seizure, CVA, palpatations, mental health, musculoskeletal)? @ -Differential Musculoskeletal Muscular strain, contusion, ligament sprain, fracture, arthritis, septic arthritis, bursitis, cellulitis, muscle spasm, nerve compression, DVT, arterial occlusion, herpes zoster, electrolyte abnormality, tumor.... This is not meant to be in all inclusive list EKG interpreted by me (3pts min.). @ -As above X-rays interpreted by me (1pt min.). @ -X-ray shows plantar calcaneal spurring. No acute fracture. CT interpreted by me (1pt min.). @ -None done U/S interpreted by me (1pt. min.). @ -None done What testing was considered but not performed or refused? (CT, X-rays, U/S, labs)? Why? @ -None What meds were considered but not given or refused? Why? @ -None Did you discuss the management of the patient with other professionals (professionals i.e. , PA, J[employer]ESE TUTOR, lab, RT, psych nurse, social services manager, production cell leader, teacher, employment security officer, case sealer)? Give summary @ -No Was smoking cessation discussed for >3mins.? @ -No Was critical care preformed (if so, how long)? @ -No Were there social determinants of health that impacted care today? How? (Homelessness, low income, unemployed, alcoholism, drug addiction, transportation, low edu. Level, literacy, decrease access to med. care, [facility], rehab)? @ -No Was there de-escalation of care discussed even if they declined (Discuss DNR or withdrawal of care, Hospice)? DNR status @ -No What co-morbidities impacted this encounter? (DM, HTN, Smoking, COPD, CAD, Cancer, CVA, ARF, Chemo, Hep., AIDS, mental health diagnosis, sleep apnea, morbid obesity)? @ -None Was patient admitted / discharged? Hospital course, mention meds given and route, prescriptions, significant lab abnormalities, going to OR and other p ertinent info. @ -Patient is a 58-year-old female presenting with chief complaint of right foot pain and swelling that started 2 days ago. Patient states it started after she had a seizure, she is unsure she injured the foot during the episode. On physical examination there is some warmth and swelling noted, pain on palpation. Neurovascularly intact. Lab work shows no leukocytosis or anemia. CMP is unremarkable. Foot x-ray shows no fracture or dislocation. Patient will be started on indomethacin and Bactrim, to cover for both gout and infectious process. Patient is educated on return parameters. Follow-up with PCP. Report back to ER with any new or worsening symptoms. Discussed return parameters and answered all questions. Patient conveyed verbal understanding and agreed to the plan. I discussed this case in detail with my attending Dr. Brown Undiagnosed new problem with uncertain prognosis? @ -No Drug Therapy requiring intensive monitoring for toxicity (Heparin, Nitro, Insulin, Cardizem)? @ -No Were any procedures done? @ -No Diagnosis/symptom? @ -Foot Pain Acute, or Chronic, or Acute on Chronic? @ -Acute Uncomplicated (without systemic symptoms) or Complicated (systemic symptoms)? @ -Uncomplicated Side effects of treatment? @ -No Exacerbation, Progression, or Severe Exacerbation? @ -No Poses a threat to life or bodily function? How? (Chest pain, [place], [place], pneumonia, PE, COPD, DKA, ARF, appy, cholecystitis, CVA, Diverticulitis, Homicidal, Suicidal, threat to staff... and all critical care pts) @ -Unlikely - Lab Data Result diagrams: 02/24/23 18:35 02/24/23 18:35 Lab Results 02/24/23 02/24/23 Range/Units 18:35 18:35 WBC 8.9 (3.8-10.6) k/uL RBC 4.01 (3.80-5.40) m/uL Hgb 12.8 (11.4-16.0) gm/dL Hct 37.3 (34.0-46.0) % MCV 93.1 (80.0-100.0) fL MCH 31.8 (25.0-35.0) pg MCHC 34.2 (31.0-37.0) g/dL RDW 13.2 (11.5-15.5) % Plt Count 296 (150-450) k/uL MPV 9.8 Neutrophils % 70 % Lymphocytes % 23 % Monocytes % 5 % Eosinophils % 0 % Basophils % 0 % Neutrophils # 6.2 (1.3-7.7) k/uL Lymphocytes # 2.0 (1.0-4.8) k/uL Monocytes # 0.4 (0-1.0) k/uL Eosinophils # 0.0 (0-0.7) k/uL Basophils # 0.0 (0-0.2) k/uL Sodium 137 (137-145) mmol/L Potassium 4.6 (3.5-5.1) mmol/L Chloride 105 (98-107) mmol/L Carbon Dioxide 27 (22-30) mmol/L Anion Gap 5 mmol/L BUN 14 (7-17) mg/dL Creatinine 0.90 (0.52-1.04) mg/dL Est GFR (CKD-EPI)AfAm 81 (>60 ml/min/1.73 sqM) Est GFR (CKD-EPI)NonAf 71 (>60 ml/min/1.73 sqM) Glucose 93 (74-99) mg/dL Uric Acid 4.8 (3.7-7.4) mg/dL Calcium 9.3 (8.4-10.2) mg/dL Total Bilirubin 0.4 (0.2-1.3) mg/dL AST 30 (14-36) U/L ALT 22 (4-34) U/L Alkaline Phosphatase 95 (38-126) U/L Total Protein 7.4 (6.3-8.2) g/dL Albumin 4.0 (3.5-5.0) g/dL Disposition Clinical Impression: Foot pain Disposition: HOME SELF-CARE Condition: Good Instructions (If sedation given, give patient instructions): Cellulitis (ED), Gout (ED), Foot Sprain (ED) Additional Instructions: Follow-up with PCP. Report back to ER with any new or worsening symptoms, including but not limited to increased redness, increased swelling, warmth, increased tenderness, discharge, red streaking, fever, chills. Take medication as prescribed Prescriptions: Sulfamethox-Tmp 800-160Mg [Bactrim DS 800-160 mg] 1 tab PO Q12HR 7 Days #14 tab Indomethacin [Indocin] 50 mg PO TID #21 capsule Is patient prescribed a controlled substance at d/c from ED?: No Referrals: Ryan Pino MD [Primary Care Provider] - 1-2 days Time of Disposition: 20:15
[2023-02-24 20:39] VITALS: BP 96/62; PULSE 63; RESP 16; TEMP 97.8
== END 2023-02-24 21:04 | disposition home or self-care (01) ==
LOC: EC 17:34
DX: M79.671 Pain in right foot (principal); J44.9 Chronic obstructive pulmonary disease, unspecified; E11.42 Type 2 diabetes mellitus with diabetic polyneuropathy; E11.649 Type 2 diabetes mellitus with hypoglycemia without coma; K21.9 Gastro-esophageal reflux disease without esophagitis; E07.9 Disorder of thyroid, unspecified; F12.90 Cannabis use, unspecified, uncomplicated; F17.200 Nicotine dependence, unspecified, uncomplicated; F32.A Depression, unspecified; Z79.4 Long term (current) use of insulin; Z79.890 Hormone replacement therapy; Z90.89 Acquired absence of other organs; Z98.51 Tubal ligation status; X58.XXXA Exposure to other specified factors, initial encounter
CPT/HCPCS: 36415; 80053; 84550; 85025; 73630; 99283; 96372; J1885

== ENCOUNTER 2023-03-17 18:27 | Emergency (ER) | payer MEDICARE, OTHER ==
[2023-03-17 18:49] LABS: Glucose,Whole Blood 157 mg/dL (70-110)
[2023-03-17 18:56] VITALS: BP 132/74; PULSE 76; RESP 16; TEMP 97.6
[2023-03-17] MEDS ORDERED: SODIUM CHLORIDE 0.9% 1,000 ML IV STA (19:12)
[2023-03-17 20:21] LABS: Basophils % (A) 0 %; Eosinophils # (A) 0.1 k/uL (0-0.7); Eosinophils % (A) 1 %; HCT 38.8 % (34.0-46.0); Lymphocytes # (A) 0.9 k/uL (1.0-4.8); Lymphocytes % (A) 9 %; MCH 31.3 pg (25.0-35.0); MCHC 33.5 g/dL (31.0-37.0); MCV 93.5 fL (80.0-100.0); Monocytes # (A) 0.3 k/uL (0-1.0); Monocytes % (A) 3 %; Neutrophils # (A) 8.3 k/uL (1.3-7.7); Neutrophils % (A) 86 %; Platelet Count 365 k/uL (150-450); RBC 4.15 m/uL (3.80-5.40); RDW 13.6 % (11.5-15.5); WBC 9.7 k/uL (3.8-10.6)
[2023-03-17 20:31] LABS: ALT 20 U/L (4-34); AST 35 U/L (14-36); African American GFR (CKD) 65 (>60 ml/min/1.73 sqM); Albumin 4.3 g/dL (3.5-5.0); Alkaline Phosphatase 137 U/L (38-126); Anion Gap 12 mmol/L; Blood Urea Nitrogen 19 mg/dL (7-17); Calcium 8.9 mg/dL (8.4-10.2); Carbon Dioxide 22 mmol/L (22-30); Chloride 102 mmol/L (98-107); Glucose 197 mg/dL (74-99); Non-African American GFR(CKD) 56 (>60 ml/min/1.73 sqM); Potassium 4.7 mmol/L (3.5-5.1); Sodium 136 mmol/L (137-145); Total Bilirubin 0.4 mg/dL (0.2-1.3); Total Protein 7.6 g/dL (6.3-8.2)
[2023-03-17 20:34] LABS: Glucose,Whole Blood 187 mg/dL (70-110)
[2023-03-17 21:36] LABS: T4, Free (Free Thyroxine) 1.02 ng/dL (0.78-2.19)
--- NOTE | 2023-03-17 21:54 | ED ---
Recheck HPI - General Chief Complaint: Recheck/Abnormal Lab/Rx Stated Complaint: hypoglycemia Time Seen by Provider: 03/17/23 18:58 Source: patient, RN notes reviewed Mode of arrival: EMS Limitations: no limitations - History of Present Illness Initial Comments: This is a 58-year-old female who presents to the emergency department for concerns of low blood sugar. She did not have much to eat today, but still took her insulin. She then went to take a nap, and her sugar seemed to drop. Her son went to wake her up, however she was not arousable. He subsequently called EMS. States that her sugar was 40 when EMS arrived. They subsequently gave her dextrose. States that she currently feels fine and has no complaints. This has happened to her in the past, which she also attributes to not eating. Currently denies any nausea, vomiting, chest pain, or shortness of breath. Denies any fevers, chills, sore throat, cough, dyspnea, chest pain, palpitations, abdominal pain, nausea, vomiting, diarrhea, back pain, or headaches. MD Complaint: other (hypoglycemia) - Related Data Home Medications Medication Instructions Recorded Confirmed Ibuprofen [Motrin] 800 mg PO TID PRN 08/08/20 03/17/23 Albuterol Sulfate [Ventolin HFA] 2 puff INHALATION RT-QID PRN 11/03/20 03/17/23 Levothyroxine Sodium [Synthroid] 125 mcg PO DAILY 03/10/22 03/17/23 Gabapentin [Neurontin] 800 mg PO TID 07/28/22 03/17/23 Insulin Glargine,Hum.rec.anlog 18 unit SQ DAILY 07/28/22 03/17/23 [Lantus Solostar Pen] Montelukast [Singulair] 10 mg PO DAILY 07/28/22 03/17/23 Venlafaxine HCl [Effexor XR] 150 mg PO DAILY 12/11/22 03/17/23 cloNIDine HCL [Catapres] 0.3 mg PO BID 12/11/22 03/17/23 HYDROcodone/APAP 10-325MG [[place] 1 tab PO DAILY PRN 03/17/23 03/17/23 10-325] INSULIN LISPRO (humaLOG) [humaLOG] See Protocol SQ TID-W/MEALS PRN 03/17/23 03/17/23 Insulin NPH Hum/Reg Insulin Hm 8 unit SQ HS 03/17/23 03/17/23 [humuLIN 70/30 Kwikpen] Insulin NPH Hum/Reg Insulin Hm 12 unit SQ DAILY 03/17/23 03/17/23 [humuLIN 70/30 Kwikpen] Levothyroxine Sodium [Synthroid] 25 mcg PO DAILY 03/17/23 03/17/23 Losartan/Hydrochlorothiazide 1 tab PO DAILY 03/17/23 03/17/23 [Losartan-Hctz 100-25 mg Tab] rOPINIRole HCL [Requip] 0.5 mg PO HS 03/17/23 03/17/23 Previous Rx's Medication Instructions Recorded Cyclobenzaprine [Flexeril] 10 mg PO TID PRN #60 tab 12/17/22 Allergies Allergy/AdvReac Type Severity Reaction Status Date / Time No Known Allergies Allergy Verified 03/17/23 21:07 Review of Systems ROS Statement: Those systems with pertinent positive or pertinent negative responses have been documented in the HPI. ROS Other: All systems not noted in ROS Statement are negative. 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 OA, efren in Rt ankle. Hx prob w/ cervical discs. Vaccinated for COVID 19 History of Any Multi-Drug Resistant Organisms: None Reported Past Surgical History: Adenoidectomy, Appendectomy, Tonsillectomy, Tubal Ligation Additional Past Surgical History / Comment(s): Laparoscopies. Pain procedures. Past Anesthesia/Blood Transfusion Reactions: Motion Sickness Additional Past Anesthesia/Blood Transfusion Reaction / Comment(s): no blood transfusions Past Psychological History: Anxiety, Depression Smoking Status: Current some day smoker Past Alcohol Use History: Occasional Past Drug Use History: Marijuana - Past Family History Mother Family Medical History: Myocardial Infarction ([place]) Additional Family Medical History / Comment(s): Mother at age 48 from coronary artery disease. Patient does not have any brothers and sisters. She has one adult son with no major medical problems. General Exam Limitations: no limitations General appearance: alert, in no apparent distress Head exam: Present: atraumatic, normocephalic, normal inspection Eye exam: Present: normal appearance, PERRL, EOMI. Absent: scleral icterus, conjunctival injection, periorbital swelling Respiratory exam: Present: normal lung sounds bilaterally. Absent: respiratory distress, wheezes, rales, rhonchi, stridor Cardiovascular Exam: Present: regular rate, normal rhythm, normal heart sounds. Absent: systolic murmur, diastolic murmur, rubs, gallop, clicks Neurological exam: Present: alert, oriented X3, CN II-XII intact Psychiatric exam: Present: normal affect, normal mood Skin exam: Present: warm, dry, intact, normal color. Absent: rash Course Vital Signs 03/17/23 18:52 Temperature 97.6 F Pulse Rate 76 Respiratory 16 Rate Blood Pressure 132/74 O2 Sat by Pulse 100 Oximetry Medical Decision Making - Medical Decision Making This is a 58-year-old female who presents to the emergency department for hypoglycemia. Was pt. sent in by a medical professional or institution? @ -No Did you speak to anyone other than the patient for history? @ -No Did you review nursing and triage notes? @ -Yes, and I agree, it is accurate with regards to the patient's symptoms. Were old charts reviewed? @ -No Differential Diagnosis? @ -Differential Hypoglycemia: Overuse of insulin, reduced dietary intake, alcohol consumption, illness, this is not meant to be an all-inclusive list. What testing was considered but not performed? (CT, X-rays, U/S, labs)? Why? @ -None What meds were considered but not given? Why? @ -None Did you discuss the management of the patient with other professionals? @ -No Did you reconcile home meds? @ -No Was smoking cessation discussed for >3mins.? @ -No Was critical care preformed (if so, how long)? @ -No Were there social determinants of health that impacted care today? How? (Homel essness, low income, unemployed, alcoholism, drug addiction, transportation, low edu. Level, literacy, decrease access to med. care, senior care, rehab)? @ -No Was there de-escalation of care discussed even if they declined? (Discuss DNR or withdrawal of care, Hospice)? @ -No What co-morbidities impacted this encounter? (DM, HTN, Smoking, COPD, CAD, Cancer, CVA, Hep., AIDS, mental health diagnosis, sleep apnea, morbid obesity)? @ -DM, HTN, thyroid disorder Was patient admitted / discharged? @ -Discharged. Lab work obtained and findings consistent with dehydration. It was otherwise nonactionable. She was given a liter bolus of IV fluids. Patient's sugar remained in the high 100s while she was here and at no point reached a hypoglycemic level. UA negative for signs of infection. She was able to eat without difficulty in the emergency department as well. Patient had no active complaints and otherwise felt stable for discharge home. Patient was educated on the need to check her sugar closely and reduce the fast acting insulin dose if she is not eating. Also advised that she should however do her best to eat even small amounts of food to reduce the likelihood of these episodes from happening in the future. Undiagnosed new problem with uncertain prognosis? @ -None Drug Therapy requiring intensive monitoring for toxicity (Heparin, Nitro, Insulin, Cardizem)? @ -None Were any procedures done? @ -None Diagnosis/symptom? @ -Hypoglycemia Acute, or Chronic, or Acute on Chronic? @ -Acute Uncomplicated (without systemic symptoms) or Complicated (systemic symptoms)? @ -Uncomplicated Side effects of treatment? @ -None Exacerbation, Progression, or Severe Exacerbation] @ -Not applicable Poses a threat to life or bodily function? @ -Not at this time, hypoglycemia has resolved. Return precautions reviewed in depth, the patient is instructed to return to the emergency department with any new, worsening, or concerning symptoms. Patient verbalized understanding. This case was discussed in detail with the attending ED physician, Dr. Brown. Presentation, findings, and treatment plan discussed in detail as well. - Lab Data Result diagrams: 03/17/23 20:02 03/17/23 20:02 Lab Results 03/17/23 03/17/23 03/17/23 Range/Units 18:39 20:02 20:02 WBC 9.7 (3.8-10.6) k/uL RBC 4.15 (3.80-5.40) m/uL Hgb 13.0 (11.4-16.0) gm/dL Hct 38.8 (34.0-46.0) % MCV 93.5 (80.0-100.0) fL MCH 31.3 (25.0-35.0) pg MCHC 33.5 (31.0-37.0) g/dL RDW 13.6 (11.5-15.5) % Plt Count 365 (150-450) k/uL MPV 10.0 Neutrophils % 86 % Lymphocytes % 9 % Monocytes % 3 % Eosinophils % 1 % Basophils % 0 % Neutrophils # 8.3 H (1.3-7.7) k/uL Lymphocytes # 0.9 L (1.0-4.8) k/uL Monocytes # 0.3 (0-1.0) k/uL Eosinophils # 0.1 (0-0.7) k/uL Basophils # 0.0 (0-0.2) k/uL Sodium 136 L (137-145) mmol/L Potassium 4.7 (3.5-5.1) mmol/L Chloride 102 (98-107) mmol/L Carbon Dioxide 22 (22-30) mmol/L Anion Gap 12 mmol/L BUN 19 H (7-17) mg/dL Creatinine 1.09 H (0.52-1.04) mg/dL Est GFR (CKD-EPI)AfAm 65 (>60 ml/min/1.73 sqM) Est GFR (CKD-EPI)NonAf 56 (>60 ml/min/1.73 sqM) Glucose 197 H (74-99) mg/dL POC Glucose (mg/dL) 157 H (70-110) mg/dL POC Glu Vacuum Extractor Operator ID Fetterly, Stephani Calcium 8.9 (8.4-10.2) mg/dL Total Bilirubin 0.4 (0.2-1.3) mg/dL AST 35 (14-36) U/L ALT 20 (4-34) U/L Alkaline Phosphatase 137 H (38-126) U/L Total Protein 7.6 (6.3-8.2) g/dL Albumin 4.3 (3.5-5.0) g/dL TSH 4.980 H (0.465-4.680) mIU/L Free T4 1.02 (0.78-2.19) ng/dL Urine Color Urine Appearance (Clear) Urine pH (5.0-8.0) Ur Specific [place] (1.001-1.035) Urine Protein (Negative) Urine Glucose (UA) (Negative) Urine Ketones (Negative) Urine Blood (Negative) Urine Nitrite (Negative) Urine Bilirubin (Negative) Urine Urobilinogen (<2.0) mg/dL Ur Leukocyte Esterase (Negative) 03/17/23 03/17/23 03/17/23 Range/Units 20:33 21:58 22:07 WBC (3.8-10.6) k/uL RBC (3.80-5.40) m/uL Hgb (11.4-16.0) gm/dL Hct (34.0-46.0) % MCV (80.0-100.0) fL MCH (25.0-35.0) pg MCHC (31.0-37.0) g/dL RDW (11.5-15.5) % Plt Count (150-450) k/uL MPV Neutrophils % % Lymphocytes % % Monocytes % % Eosinophils % % Basophils % % Neutrophils # (1.3-7.7) k/uL Lymphocytes # (1.0-4.8) k/uL Monocytes # (0-1.0) k/uL Eosinophils # (0-0.7) k/uL Basophils # (0-0.2) k/uL Sodium (137-145) mmol/L Potassium (3.5-5.1) mmol/L Chloride (98-107) mmol/L Carbon Dioxide (22-30) mmol/L Anion Gap mmol/L BUN (7-17) mg/dL Creatinine (0.52-1.04) mg/dL Est GFR (CKD-EPI)AfAm (>60 ml/min/1.73 sqM) Est GFR (CKD-EPI)NonAf (>60 ml/min/1.73 sqM) Glucose (74-99) mg/dL POC Glucose (mg/dL) 187 H 193 H (70-110) mg/dL POC Glu Vacuum Extractor Operator ID Janis LissetteAnastacio Berry Calcium (8.4-10.2) mg/dL Total Bilirubin (0.2-1.3) mg/dL AST (14-36) U/L ALT (4-34) U/L Alkaline Phosphatase (38-126) U/L Total Protein (6.3-8.2) g/dL Albumin (3.5-5.0) g/dL TSH (0.465-4.680) mIU/L Free T4 (0.78-2.19) ng/dL Urine Color Light Yellow Urine Appearance Clear (Clear) Urine pH 5.5 (5.0-8.0) Ur Specific [place] 1.007 (1.001-1.035) Urine Protein Negative (Negative) Urine Glucose (UA) 1+ H (Negative) Urine Ketones Negative (Negative) Urine Blood Negative (Negative) Urine Nitrite Negative (Negative) Urine Bilirubin Negative (Negative) Urine Urobilinogen <2.0 (<2.0) mg/dL Ur Leukocyte Esterase Negative (Negative) Disposition Clinical Impression: Hypoglycemia Disposition: HOME SELF-CARE Instructions (If sedation given, give patient instructions): Hypoglycemia in a Person with Diabetes (ED) Additional Instructions: Return to the emergency department with any new, worsening, or concerning symptoms. Make sure you are trying to eat even small amounts of food to reduce the likelihood of hypoglycemic episodes from happening in the future. Adjust your insulin dose if necessary. Follow up with your primary care provider in 1- 2 days. Is patient prescribed a controlled substance at d/c from ED?: No Referrals: Ryan Pino MD [Primary Care Provider] - 1-2 days
[2023-03-17 22:08] LABS: Glucose,Whole Blood 193 mg/dL (70-110)
[2023-03-17 22:20] LABS: Appearance,Urine Clear (Clear); Bilirubin,Urine Negative (Negative); Blood,Urine Negative (Negative); Color,Urine Light Yellow; Glucose,Urine (UA) 1+ (Negative); Ketones,Urine Negative (Negative); Leukocyte Esterase,Urine Negative (Negative); Nitrite,Urine Negative (Negative); PH, Urine 5.5 (5.0-8.0); Protein,Urine Negative (Negative); Specific Gravity,Urine 1.007 (1.001-1.035); Urobilinogen,Urine <2.0 mg/dL (<2.0)
== END 2023-03-17 22:42 | disposition home or self-care (01) ==
LOC: EC 18:27
DX: E16.2 Hypoglycemia, unspecified (principal); J44.9 Chronic obstructive pulmonary disease, unspecified; E11.9 Type 2 diabetes mellitus without complications; I10 Essential (primary) hypertension; E07.9 Disorder of thyroid, unspecified; M19.90 Unspecified osteoarthritis, unspecified site; F41.9 Anxiety disorder, unspecified; F32.A Depression, unspecified; F17.200 Nicotine dependence, unspecified, uncomplicated; F12.90 Cannabis use, unspecified, uncomplicated; Z79.1 Long term (current) use of non-steroidal anti-inflammatories (NSAID); Z79.890 Hormone replacement therapy; Z79.4 Long term (current) use of insulin; Z79.899 Other long term (current) drug therapy
CPT/HCPCS: 36415; 80053; 81003; 84439; 84443; 85025; 99285

== ENCOUNTER 2023-05-08 21:52 | Emergency (ER) | payer MEDICARE, OTHER ==
[2023-05-08 22:20] VITALS: BP 126/72; PULSE 82; RESP 18; TEMP 98.3
[2023-05-08] MEDS ORDERED: KETOROLAC 15 MG/ML 1 ML VIAL IM STA (22:33)
[2023-05-08] MEDS ORDERED: HYDROcodone/APAP 7.5-325MG 1 EACH TAB PO ONE (22:33)
--- NOTE | 2023-05-08 22:38 | ED ---
Lower Extremity Injury HPI - General Chief Complaint: Extremity Injury, Lower Stated Complaint: Fall, right ankle injury Time Seen by Provider: 05/08/23 22:00 Source: patient, RN notes reviewed Mode of arrival: ambulatory Limitations: no limitations - History of Present Illness Initial Comments: This is a 58-year-old female who presents to the emergency department for right foot/ankle pain. States that she tripped on a curb yesterday and fell, hyperextending her foot. Reports a prior ankle fusion in the right foot, and is concerned about complications associated with this. She is taking ibuprofen for pain, which is not effectively managing her symptoms. She has been able to ambulate despite the pain. Denies hitting her head, sustaining any loss of consciousness, or any other injuries. Denies any fevers, chills, sore throat, cough, dyspnea, chest pain, palpitations, abdominal pain, nausea, vomiting, diarrhea, back pain, or head aches. MD Complaint: ankle injury, foot injury Onset/Timin -: days(s) Injury: Ankle: Right, Foot: Right - Related Data Home Medications Medication Instructions Recorded Confirmed Ibuprofen [Motrin] 800 mg PO TID PRN 08/08/20 03/17/23 Albuterol Sulfate [Ventolin HFA] 2 puff INHALATION RT-QID PRN 11/03/20 03/17/23 Levothyroxine Sodium [Synthroid] 125 mcg PO DAILY 03/10/22 03/17/23 Gabapentin [Neurontin] 800 mg PO TID 07/28/22 03/17/23 Insulin Glargine,Hum.rec.anlog 18 unit SQ DAILY 07/28/22 03/17/23 [Lantus Solostar Pen] Montelukast [Singulair] 10 mg PO DAILY 07/28/22 03/17/23 Venlafaxine HCl [Effexor XR] 150 mg PO DAILY 12/11/22 03/17/23 cloNIDine HCL [Catapres] 0.3 mg PO BID 12/11/22 03/17/23 HYDROcodone/APAP 10-325MG [[place] 1 tab PO DAILY PRN 03/17/23 03/17/23 10-325] INSULIN LISPRO (humaLOG) [humaLOG] See Protocol SQ TID-W/MEALS PRN 03/17/23 03/17/23 Insulin NPH Hum/Reg Insulin Hm 8 unit SQ HS 03/17/23 03/17/23 [humuLIN 70/30 Kwikpen] Insulin NPH Hum/Reg Insulin Hm 12 unit SQ DAILY 03/17/23 03/17/23 [humuLIN 70/30 Kwikpen] Levothyroxine Sodium [Synthroid] 25 mcg PO DAILY 03/17/23 03/17/23 Losartan/Hydrochlorothiazide 1 tab PO DAILY 03/17/23 03/17/23 [Losartan-Hctz 100-25 mg Tab] rOPINIRole HCL [Requip] 0.5 mg PO HS 03/17/23 03/17/23 Previous Rx's Medication Instructions Recorded Cyclobenzaprine [Flexeril] 10 mg PO TID PRN #60 tab 12/17/22 Ketorolac [Toradol] 10 mg PO Q6HR PRN #12 tab 05/09/23 Allergies Allergy/AdvReac Type Severity Reaction Status Date / Time No Known Allergies Allergy Verified 03/17/23 21:07 Review of Systems ROS Statement: Those systems with pertinent positive or pertinent negative responses have been documented in the HPI. ROS Other: All systems not noted in ROS Statement are negative. 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 OA, efren in Rt ankle. Hx prob w/ cervical discs. Vaccinated for COVID 19 History of Any Multi-Drug Resistant Organisms: None Reported Past Surgical History: Adenoidectomy, Appendectomy, Tonsillectomy, Tubal Ligation Additional Past Surgical History / Comment(s): Laparoscopies. Pain procedures., cataract, neck fusion Past Anesthesia/Blood Transfusion Reactions: Motion Sickness Additional Past Anesthesia/Blood Transfusion Reaction / Comment(s): no blood transfusions Past Psychological History: Anxiety, Depression Smoking Status: Current some day smoker Past Alcohol Use History: Occasional Past Drug Use History: Marijuana - Past Family History Mother Family Medical History: Myocardial Infarction ([place]) Additional Family Medical History / Comment(s): Mother at age 48 from coronary artery disease. Patient does not have any brothers and sisters. She has one adult son with no major medical problems. General Exam Limitations: no limitations General appearance: alert, in no apparent distress Head exam: Present: atraumatic, normocephalic, normal inspection Respiratory exam: Present: normal lung sounds bilaterally. Absent: respiratory distress, wheezes, rales, rhonchi, stridor Cardiovascular Exam: Present: regular rate, normal rhythm, normal heart sounds. Absent: systolic murmur, diastolic murmur, rubs, gallop, clicks Extremities exam: Present: other (Minor tenderness and swelling to the dorsal aspect of the right foot. No ecchymosis. Full active and passive range of motion. 2+ DP and PT pulses, capillary refill less than 1 second.) Neurological exam: Present: alert, oriented X3, CN II-XII intact Psychiatric exam: Present: normal affect, normal mood Skin exam: Present: warm, dry, intact, normal color. Absent: rash Course Vital Signs 05/08/23 22:17 Temperature 98.3 F Pulse Rate 82 Respiratory 18 Rate Blood Pressure 126/72 O2 Sat by Pulse 98 Oximetry Medical Decision Making - Medical Decision Making This is a 58-year-old female who presents to the emergency department for right foot and ankle pain. Was pt. sent in by a medical professional or institution? @ -No Did you speak to anyone other than the patient for history? @ -No Did you review nursing and triage notes? @ -Yes, and I agree, it is accurate with regards to the patient's symptoms. Were old charts reviewed? @ -No Differential Diagnosis? @ -Differential Foot/Ankle Pain: Fracture, dislocation, contusion, sprain, this is not meant to be an all- inclusive list. EKG interpreted by me (3pts min.)? @ -Not obtained X-rays interpreted by me (1pt min.)? @ -X-ray of the right foot and ankle obtained. My interpretation identifies no acute fractures or dislocations. CT interpreted by me (1pt min.)? @ -Not obtained U/S interpreted by me (1pt. min.)? @ -Not obtained What testing was considered but not performed? (CT, X-rays, U/S, labs)? Why? @ -None What meds were considered but not given? Why? @ -None Did you discuss the management of the patient with other professionals? @ -No Did you reconcile home meds? @ -No Was smoking cessation discussed for >3mins.? @ -No Was critical care preformed (if so, how long)? @ -No Were there social determinants of health that impacted care today? How? (Homelessness, low income, unemployed, alcoholism, drug addiction, transportation, low edu. Level, literacy, decrease access to med. care, senior care, rehab)? @ -No Was there de-escalation of care discussed even if they declined? (Discuss DNR or withdrawal of care, Hospice)? @ -No What co-morbidities impacted this encounter? (DM, HTN, Smoking, COPD, CAD, Cancer, CVA, Hep., AIDS, mental health diagnosis, sleep apnea, morbid obesity)? @ -Osteoarthritis Was patient admitted / discharged? @ -Discharged. X-ray of the right foot and ankle obtained revealing no acute findings. Pain was well controlled with Toradol in the emergency department. Advised that this is most likely related to a sprain. She was given a Velcro stirrup splint for support. Patient states that the Toradol is much more effec tive than ibuprofen. Prescription for Toradol provided with dosing instructions reviewed. Patient is instructed to take the Toradol with Tylenol if needed and avoid any other arac-eqi-mmrcfhj anti-inflammatories such as ibuprofen with the Toradol. Otherwise advised to apply ice for 15-20 minutes every 2-3 hours and keep the foot elevated. Undiagnosed new problem with uncertain prognosis? @ -None Drug Therapy requiring intensive monitoring for toxicity (Heparin, Nitro, Insulin, Cardizem)? @ -None Were any procedures done? @ -None Diagnosis/symptom? @ -Right foot/ankle sprain Acute, or Chronic, or Acute on Chronic? @ -Acute Uncomplicated (without systemic symptoms) or Complicated (systemic symptoms)? @ -Uncomplicated Side effects of treatment? @ -None Exacerbation, Progression, or Severe Exacerbation] @ -Not applicable Poses a threat to life or bodily function? @ -This may have some impact on her ambulation for the mean time. Return precautions reviewed in depth, the patient is instructed to return to the emergency department with any new, worsening, or concerning symptoms. Patient verbalized understanding. This case was discussed in detail with the attending ED physician, Dr. Mast. Presentation, findings, and treatment plan discussed in detail as well. - Radiology Data Radiology results: report reviewed, image reviewed Disposition Clinical Impression: Right ankle sprain Disposition: HOME SELF-CARE Instructions (If sedation given, give patient instructions): Ankle Sprain (ED), Foot Sprain (ED) Additional Instructions: Return to the emergency department with any new, worsening, or concerning symptoms. Alternate with Toradol and Tylenol as needed for pain relief. Do not take other twyw-xhz-lkgkqgo anti-inflammatories with the Toradol, take one or the other. Apply ice for 15-20 minutes every 2-3 hours and keep the foot elev ated. Use the Velcro splint as needed for support. Follow up with your primary care provider in 1-2 days. Prescriptions: Ketorolac [Toradol] 10 mg PO Q6HR PRN #12 tab PRN Reason: Pain Is patient prescribed a controlled substance at d/c from ED?: No Referrals: Ryan Pino MD [Primary Care Provider] - 1-2 days
--- NOTE | 2023-05-08 23:46 | XR ---
EXAM: XR Right Ankle Complete, 3 or More Views CLINICAL HISTORY: ITS.REASON XR Reason: Pain after injury TECHNIQUE: Frontal, lateral and oblique views of the right ankle. COMPARISON: No previous studies. FINDINGS: Bones/joints: Extensive orthopedic hardware is noted in place about the ankle joint. Moderate to severe osteoarthritic changes. 0.5 cm anterior spur. No acute fracture. No dislocation. Soft tissues: Soft tissues are unremarkable. Vasculature: Vascular calcifications noted suggestive of possible diabetes. IMPRESSION: 1. Extensive postsurgical changes about the ankle joint. 2. Advanced osteoarthritic changes. 3. Vascular calcifications suggestive of possible diabetes. 4. If there is concern for cellulitis or osteomyelitis, MRI imaging should be performed.
--- NOTE | 2023-05-08 23:47 | XR ---
EXAM: XR Right Foot Complete, 3 or More Views CLINICAL HISTORY: ITS.REASON XR Reason: Pain after injury TECHNIQUE: Frontal, lateral and oblique views of the right foot. COMPARISON: No previous studies. FINDINGS: Bones/joints: Moderate osteoarthritic changes at the DIP and PIP joints. Osteopenia. Extensive post surgical changes the ankle joint. 0. 5 cm anterior spur. No acute fracture or dislocation. Soft tissues: Unremarkable. No radiopaque foreign body. Vasculature: Vascular calcifications are noted suggestive of diabetes. IMPRESSION: 1. Osteoarthritic changes. Osteopenia. 2. No acute fracture or dislocation. 3. Vascular calcifications suggestive of diabetes. 4. If there is concern for cellulitis or osteomyelitis, MRI imaging should be performed for follow-up.
[2023-05-09] MEDS ORDERED: ACET/COD 300 MG/30 MG STARTER PACK 6 TAB BTL PO STA (00:03)
[2023-05-09] MEDS ORDERED: IBUPROFEN 600 MG STARTER PACK 4 TAB BTL PO STA (00:03)
== END 2023-05-09 00:30 | disposition home or self-care (01) ==
LOC: EC 21:52
DX: S93.401A Sprain of unspecified ligament of right ankle, initial encounter (principal); E11.36 Type 2 diabetes mellitus with diabetic cataract; E11.42 Type 2 diabetes mellitus with diabetic polyneuropathy; I10 Essential (primary) hypertension; J44.9 Chronic obstructive pulmonary disease, unspecified; E03.9 Hypothyroidism, unspecified; F32.A Depression, unspecified; F41.9 Anxiety disorder, unspecified; K21.9 Gastro-esophageal reflux disease without esophagitis; F17.200 Nicotine dependence, unspecified, uncomplicated; F12.90 Cannabis use, unspecified, uncomplicated; Z79.4 Long term (current) use of insulin; Z79.890 Hormone replacement therapy; Z79.899 Other long term (current) drug therapy; Z90.49 Acquired absence of other specified parts of digestive tract; W01.0XXA Fall on same level from slipping, tripping and stumbling without subsequent striking against object, initial encounter
CPT/HCPCS: 99284 ×2; 96372 ×2; 73610; 73630; 29515; L4350; J1885

== ENCOUNTER 2023-06-25 15:44 | Inpatient (IN) | payer MEDICARE, OTHER ==
[2023-06-25 15:56] LABS: Glucose,Whole Blood 399 mg/dL (70-110)
[2023-06-25] MEDS ORDERED: ACETAMINOPHEN TAB 325 MG TAB PO STA (16:10)
[2023-06-25] MEDS ORDERED: PIPERACILLIN-TAZOBACTAM 3.375 GM in SODIUM CHLORIDE 0.9% 100 ML IVPB STA (16:10)
[2023-06-25] MEDS ORDERED: ONDANSETRON 4 MG/2 ML VIAL IVP STA (16:11)
[2023-06-25] MEDS ORDERED: INSULIN REGULAR 100 UNIT/ML VIAL (IV) SQ STA (16:11)
--- NOTE | 2023-06-25 16:16 | ED ---
General Adult HPI - General Chief complaint: Recheck/Abnormal Lab/Rx Stated complaint: Hyperglycemia Time Seen by Provider: 06/25/23 15:45 Source: patient, EMS Mode of arrival: EMS Limitations: no limitations - History of Present Illness Initial comments: This patient is a 58 -year-old woman with history of diabetes who presents to evaluation she states for hyperglycemia. When asked how long this is been going on she says 50 years. She states problem today was that she was having some associated nausea and vomiting. Patient has not been feeling well since this morning. She has had vomiting 3-4 times. She is having chills. Patient did have pins placed in the left hand for fracture by Dr. Valentine. She states she is not having much pain there she states that the pain really is mild and she takes ibuprofen for it. She has not noted fevers. She denies symptoms of infection, no congestion, sore throat, cough. No chest pain or dyspnea. No change in urination or bowel movements. Consistency: constant Improves with: none Worsens with: none Associated Symptoms: nausea/vomiting Treatments Prior to Arrival: NSAID (Ibuprofen) - Related Data Home Medications Medication Instructions Recorded Confirmed Levothyroxine Sodium [Synthroid] 125 mcg PO DAILY 03/10/22 06/25/23 Insulin Glargine,Hum.rec.anlog 18 unit SQ DAILY 07/28/22 06/25/23 [Lantus Solostar Pen] Montelukast [Singulair] 10 mg PO DAILY 07/28/22 06/25/23 Venlafaxine HCl [Effexor XR] 150 mg PO DAILY 12/11/22 06/25/23 Levothyroxine Sodium [Synthroid] 25 mcg PO DAILY 03/17/23 06/25/23 rOPINIRole HCL [Requip] 0.5 mg PO HS 03/17/23 06/25/23 Previous Rx's Medication Instructions Recorded Cyclobenzaprine [Flexeril] 10 mg PO TID PRN #60 tab 12/17/22 Albuterol Sulfate [Albuterol 1 puff PO Q4-6H #8.5 gm 07/01/23 Sulfate Hfa] Budesonide-Formot 160-4.5 Mcg 2 puff INHALATION RT-BID #1 each 07/01/23 [Symbicort 160-4.5 Mcg Inhaler] Famotidine [Pepcid] 20 mg PO HS #30 tab 07/01/23 Gabapentin [Neurontin] 800 mg PO BID #0 07/01/23 Insulin NPH Hum/Reg Insulin Hm 16 unit SQ AC-BID #0 07/01/23 [humuLIN 70/30 Kwikpen] Psyllium Husk 100% [Metamucil 6 gm PO DAILY packet 07/01/23 Packet] cefUROXime axetiL [Ceftin] 500 mg PO BID 10 Days #20 tab 07/01/23 Allergies Allergy/AdvReac Type Severity Reaction Status Date / Time No Known Allergies Allergy Verified 06/25/23 16:06 Review of Systems ROS Statement: Those systems with pertinent positive or pertinent negative responses have been documented in the HPI. ROS Other: All systems not noted in ROS Statement are negative. Constitutional: Reports: chills. Denies: fever ENT: Denies: throat pain, congestion Respiratory: Denies: cough, dyspnea Cardiovascular: Denies: chest pain, palpitations Gastrointestinal: Reports: nausea, vomiting. Denies: abdominal pain, diarrhea, constipation, melena, hematochezia Genitourinary: Denies: dysuria, hematuria Musculoskeletal: Denies: back pain Skin: Denies: rash Neurological: Denies: headache, weakness Past Medical History Past Medical History: COPD, Diabetes Mellitus, Eye Disorder, Hypertension, Musculoskeletal Disorder, Osteoarthritis (OA), Thyroid Disorder Additional Past Medical History / Comment(s): COPD, diabetes, GERD, osteoarthritis, seizure disorder secondary to hypoglycemia , hypothyroid, multiple sclerosis, diabetic peripheral neuropathy, optic neuritis, decreased vision in the eyes,; this problem, restless leg syndrome, colon polyps, anxiety depression. OA, efren in Rt ankle. Hx prob w/ cervical discs. Vaccinated for COVID 19 History of Any Multi-Drug Resistant Organisms: None Reported Past Surgical History: Adenoidectomy, Appendectomy, Tonsillectomy, Tubal Ligation Additional Past Surgical History / Comment(s): Laparoscopies. Pain procedures., cataract, neck fusion Past Anesthesia/Blood Transfusion Reactions: Motion Sickness Additional Past Anesthesia/Blood Transfusion Reaction / Comment(s): no blood transfusions Past Psychological History: Anxiety, Depression Smoking Status: Current some day smoker Past Alcohol Use History: Occasional Past Drug Use History: Marijuana - Past Family History Mother Family Medical History: Myocardial Infarction (MA) Additional Family Medical History / Comment(s): Mother at age 48 from cor onary artery disease. Patient does not have any brothers and sisters. She has one adult son with no major medical problems. General Exam Limitations: no limitations General appearance: alert, in no apparent distress Head exam: Present: atraumatic, normocephalic Eye exam: Present: normal appearance. Absent: scleral icterus, conjunctival injection Neck exam: Present: normal inspection, full ROM. Absent: meningismus Respiratory exam: Present: normal lung sounds bilaterally. Absent: respiratory distress, wheezes, rales, rhonchi, stridor Cardiovascular Exam: Present: normal rhythm, tachycardia, normal heart sounds. Absent: systolic murmur, diastolic murmur, rubs, gallop GI/Abdominal exam: Present: soft. Absent: distended, tenderness, guarding, rebound, rigid, mass Extremities exam: Present: normal inspection, normal capillary refill. Absent: pedal edema, calf tenderness Back exam: Present: normal inspection. Absent: CVA tenderness (R), CVA tenderness (L) Neurological exam: Present: alert Skin exam: Present: warm, dry, intact, normal color. Absent: rash Course Vital Signs 06/25/23 06/25/23 06/25/23 16:00 16:45 17:40 Temperature 102.3 F H 101.9 F H 101.6 F H Pulse Rate 121 H 102 H 98 Respiratory 20 17 17 Rate Blood Pressure 189/81 153/67 135/60 O2 Sat by Pulse 95 99 100 Oximetry 06/25/23 06/25/23 18:28 19:09 Temperature 100.9 F H 100.7 F H Pulse Rate 84 80 Respiratory 16 16 Rate Blood Pressure 110/66 93/55 O2 Sat by Pulse 98 98 Oximetry - Reevaluation(s) Reevaluation #1: 06/25/23 16:15 I did take down the patient's splint such that the surgical area could be visualized. There is no erythema. No purulent drainage. The splint was then replaced EKG Findings - EKG Results: EKG: interpreted by GARETH, sinus rhythm (Rate 90 bpm), normal axis, normal QRS - Blocks, [place], Hypertrophy, ST Abn: Repolarization changes or abnormalities: nonspecific abnormality, ST segment, and/or T wave Medical Decision Making - Medical Decision Making This patient is 58-year-old woman presenting to have evaluation and found to have hyperglycemia as well as fever. There is no definite source, patient will be admitted for IV antibiotics, cultures pending, and infectious disease consultation. The patient had chest x-ray which I interpreted as being negative for acute infiltrate, pneumothorax, congestive heart failure Was pt. sent in by a medical professional or institution ([facility] Cordero, [employer] REPORT DEVELOPER, urgent care, hospital, or usp...) When possible be specific @ -[No] Did you speak to anyone other than the patient for history (EMS, parent, family, police, friend...)? What history was obtained from this source @ -[No] Did you review nursing and triage notes (agree or disagree)? Why? @ -[I reviewed and agree with nursing and triage notes] Were old charts reviewed (outside hosp., previous admission, EMS record, old EKG, old radiological studies, urgent care reports/EKG's, usp records)? Report findings @ -[No old charts were reviewed] Differential Diagnosis (chest pain, altered mental status, abdominal pain women, abdominal pain men, vaginal bleeding, weakness, fever, dyspnea, syncope, headache, dizziness, GI bleed, back pain, seizure, CVA, palpatations, mental health, musculoskeletal)? @ -[Differential Fever: Pneumonia, viral URI, endocarditis, myocarditis, pericarditis, otitis, sinusitis, peritonsillar Abscess, retropharyngeal Abscess, epiglottitis, perito nitis, appendicitis, Yulia cystitis, diverticulitis, hepatitis, colitis, UTI, PID, TOA, pyelonephritis, prostatitis, epididymitis, meningitis, encephalitis, pulmonary embolism, CVA, thyroid storm, pancreatitis, adrenal crisis, cavernous sinus thrombosis, this is not meant to be an all-inclusive list. EKG interpreted by me (3pts min.). @ -[As above] X-rays interpreted by me (1pt min.). @ -[As above CT interpreted by me (1pt min.). @ -[None done] U/S interpreted by me (1pt. min.). @ -[None done] What testing was considered but not performed or refused? (CT, X-rays, U/S, labs)? Why? @ -[None] What meds were considered but not given or refused? Why? @ -[None] Did you discuss the management of the patient with other professionals (professionals i.e. , PA, [employer] REPORT DEVELOPER, lab, RT, psych nurse, protective services social worker, electrician front, teacher, chief information officer, correctional case records supervisor)? Give summary @ -[Case discussed with admitting physician and with orthopedic mobile sales consultant. Patient be admitted and there treatment recommendations are incorporated Was smoking cessation discussed for >3mins.? @ -[No] Was critical care preformed (if so, how long)? @ -[No] Were there social determinants of health that impacted care today? How? (Homelessness, low income, unemployed, alcoholism, drug addiction, transportation, low edu. Level, literacy, decrease access to med. care, senior care, rehab)? @ -[No] Was there de-escalation of care discussed even if they declined (Discuss DNR or withdrawal of care, Hospice)? DNR status @ -[No] What co-morbidities impacted this encounter? (DM, HTN, Smoking, COPD, CAD, Cancer, CVA, ARF, Chemo, Hep., AIDS, mental health diagnosis, sleep apnea, morbid obesity)? @ -[None] Was patient admitted / discharged? Hospital course, mention meds given and route, prescriptions, significant lab abnormalities, going to OR and other pertinent info. @ -[This patient is 58-year-old diabetic woman with fever, source unknown at time of admission. Patient be admitted, with antibiotic coverage and consultations. Currently no evidence of acute coronary syndrome, suspect the elevated troponin related to acute kidney injury Undiagnosed new problem with uncertain prognosis? @ -[No] Drug Therapy requiring intensive monitoring for toxicity (Heparin, Nitro, Insulin, Cardizem)? @ -[No] Were any procedures done? @ -[No] Diagnosis/symptom? @ -[Acute fever Acute hyperglycemia and diabetic patient Acute kidney injury Acute elevated troponin Acute, or Chronic, or Acute on Chronic? @ -[default] Uncomplicated (without systemic symptoms) or Complicated (systemic symptoms)? @ -[Complicated Side effects of treatment? @ -[No] Exacerbation, Progression, or Severe Exacerbation? @ -[No] Poses a threat to life or bodily function? How? (Chest pain, [place], MA, pneumonia, PE, COPD, DKA, ARF, appy, cholecystitis, CVA, Diverticulitis, Homicidal, Suicidal, threat to staff... and all critical care pts) @ -[Yes, fever from an unknown source may progress to life threatening infect ion/ - Lab Data Result diagrams: 06/30/23 04:41 07/01/23 12:07 Lab Results 06/25/23 06/25/23 06/25/23 Range/Units 15:51 16:23 16:23 WBC 7.3 (3.8-10.6) k/uL RBC 3.27 L (3.80-5.40) m/uL Hgb 10.5 L (11.4-16.0) gm/dL Hct 31.4 L (34.0-46.0) % MCV 95.9 (80.0-100.0) fL MCH 32.0 (25.0-35.0) pg MCHC 33.4 (31.0-37.0) g/dL RDW 13.4 (11.5-15.5) % Plt Count 216 (150-450) k/uL MPV 10.4 Neutrophils % 93 % Lymphocytes % 4 % Monocytes % 2 % Eosinophils % 0 % Basophils % 0 % Neutrophils # 6.8 (1.3-7.7) k/uL Lymphocytes # 0.3 L (1.0-4.8) k/uL Monocytes # 0.1 (0-1.0) k/uL Eosinophils # 0.0 (0-0.7) k/uL Basophils # 0.0 (0-0.2) k/uL PT 9.9 (9.0-12.0) sec INR 0.9 (<1.2) APTT 24.7 (22.0-30.0) sec Sodium (137-145) mmol/L Potassium (3.5-5.1) mmol/L Chloride (98-107) mmol/L Carbon Dioxide (22-30) mmol/L Anion Gap mmol/L BUN (7-17) mg/dL Creatinine (0.52-1.04) mg/dL Est GFR (CKD-EPI)AfAm (>60 ml/min/1.73 sqM) Est GFR (CKD-EPI)NonAf (>60 ml/min/1.73 sqM) Glucose (74-99) mg/dL POC Glucose (mg/dL) 399 H (70-110) mg/dL POC Glu Call Or Contact Centre Team Leader ID Carli Beckman Plasma Lactic Acid Roger (0.7-2.0) mmol/L Calcium (8.4-10.2) mg/dL Total Bilirubin (0.2-1.3) mg/dL AST (14-36) U/L ALT (4-34) U/L Alkaline Phosphatase (38-126) U/L Troponin I (0.000-0.034) ng/mL Total Protein (6.3-8.2) g/dL Albumin (3.5-5.0) g/dL Urine Color Urine Appearance (Clear) Urine pH (5.0-8.0) Ur Specific [place] (1.001-1.035) Urine Protein (Negative) Urine Glucose (UA) (Negative) Urine Ketones (Negative) Urine Blood (Negative) Urine Nitrite (Negative) Urine Bilirubin (Negative) Urine Urobilinogen (<2.0) mg/dL Ur Leukocyte Esterase (Negative) Urine RBC (0-5) /hpf Urine WBC (0-5) /hpf Ur Squamous Epith Cells (0-4) /hpf Coronavirus (PCR) (Not Detectd) 06/25/23 06/25/23 06/25/23 Range/Units 16:23 16:23 16:23 WBC (3.8-10.6) k/uL RBC (3.80-5.40) m/uL Hgb (11.4-16.0) gm/dL Hct (34.0-46.0) % MCV (80.0-100.0) fL MCH (25.0-35.0) pg MCHC (31.0-37.0) g/dL RDW (11.5-15.5) % Plt Count (150-450) k/uL MPV Neutrophils % % Lymphocytes % % Monocytes % % Eosinophils % % Basophils % % Neutrophils # (1.3-7.7) k/uL Lymphocytes # (1.0-4.8) k/uL Monocytes # (0-1.0) k/uL Eosinophils # (0-0.7) k/uL Basophils # (0-0.2) k/uL PT (9.0-12.0) sec INR (<1.2) APTT (22.0-30.0) sec Sodium 132 L (137-145) mmol/L Potassium 4.4 (3.5-5.1) mmol/L Chloride 107 (98-107) mmol/L Carbon Dioxide 11 L (22-30) mmol/L Anion Gap 14 mmol/L BUN 43 H (7-17) mg/dL Creatinine 1.58 H (0.52-1.04) mg/dL Est GFR (CKD-EPI)AfAm 41 (>60 ml/min/1.73 sqM) Est GFR (CKD-EPI)NonAf 36 (>60 ml/min/1.73 sqM) Glucose 372 H (74-99) mg/dL POC Glucose (mg/dL) (70-110) mg/dL POC Glu Call Or Contact Centre Team Leader ID Plasma Lactic Acid Roger 1.1 (0.7-2.0) mmol/L Calcium 8.9 (8.4-10.2) mg/dL Total Bilirubin 0.5 (0.2-1.3) mg/dL AST 30 (14-36) U/L ALT 22 (4-34) U/L Alkaline Phosphatase 194 H (38-126) U/L Troponin I 0.046 H* (0.000-0.034) ng/mL Total Protein 6.9 (6.3-8.2) g/dL Albumin 3.5 (3.5-5.0) g/dL Urine Color Urine Appearance (Clear) Urine pH (5.0-8.0) Ur Specific [place] (1.001-1.035) Urine Protein (Negative) Urine Glucose (UA) (Negative) Urine Ketones (Negative) Urine Blood (Negative) Urine Nitrite (Negative) Urine Bilirubin (Negative) Urine Urobilinogen (<2.0) mg/dL Ur Leukocyte Esterase (Negative) Urine RBC (0-5) /hpf Urine WBC (0-5) /hpf Ur Squamous Epith Cells (0-4) /hpf Coronavirus (PCR) (Not Detectd) 06/25/23 06/25/23 Range/Units 16:45 16:46 WBC (3.8-10.6) k/uL RBC (3.80-5.40) m/uL Hgb (11.4-16.0) gm/dL Hct (34.0-46.0) % MCV (80.0-100.0) fL MCH (25.0-35.0) pg MCHC (31.0-37.0) g/dL RDW (11.5-15.5) % Plt Count (150-450) k/uL MPV Neutrophils % % Lymphocytes % % Monocytes % % Eosinophils % % Basophils % % Neutrophils # (1.3-7.7) k/uL Lymphocytes # (1.0-4.8) k/uL Monocytes # (0-1.0) k/uL Eosinophils # (0-0.7) k/uL Basophils # (0-0.2) k/uL PT (9.0-12.0) sec INR (<1.2) APTT (22.0-30.0) sec Sodium (137-145) mmol/L Potassium (3.5-5.1) mmol/L Chloride (98-107) mmol/L Carbon Dioxide (22-30) mmol/L Anion Gap mmol/L BUN (7-17) mg/dL Creatinine (0.52-1.04) mg/dL Est GFR (CKD-EPI)AfAm (>60 ml/min/1.73 sqM) Est GFR (CKD-EPI)NonAf (>60 ml/min/1.73 sqM) Glucose (74-99) mg/dL POC Glucose (mg/dL) (70-110) mg/dL POC Glu Call Or Contact Centre Team Leader ID Plasma Lactic Acid Roger (0.7-2.0) mmol/L Calcium (8.4-10.2) mg/dL Total Bilirubin (0.2-1.3) mg/dL AST (14-36) U/L ALT (4-34) U/L Alkaline Phosphatase (38-126) U/L Troponin I (0.000-0.034) ng/mL Total Protein (6.3-8.2) g/dL Albumin (3.5-5.0) g/dL Urine Color Yellow Urine Appearance Clear (Clear) Urine pH 6.0 (5.0-8.0) Ur Specific [place] 1.010 (1.001-1.035) Urine Protein 1+ (Negative) Urine Glucose (UA) 4+ (Negative) Urine Ketones 1+ (Negative) Urine Blood Moderate (Negative) Urine Nitrite Negative (Negative) Urine Bilirubin Negative (Negative) Urine Urobilinogen <0.2 (<2.0) mg/dL Ur Leukocyte Esterase Negative (Negative) Urine RBC 1 (0-5) /hpf Urine WBC 1 (0-5) /hpf Ur Squamous Epith Cells 1 (0-4) /hpf Coronavirus (PCR) Not Detected (Not Detectd) Disposition Clinical Impression: Fever, Hyperglycemia, Acute kidney injury, Elevated troponin I level Disposition: ADMITTED IP TO THIS HOSP Is patient prescribed a controlled substance at d/c from ED?: No
[2023-06-25] MEDS: SODIUM CHLORIDE 0.9% 500 ML 500 ML IV SCH ×2 (16:42→17:06)
[2023-06-25 16:44] LABS: Basophils % (A) 0 %; Eosinophils % (A) 0 %; HCT 31.4 % (34.0-46.0); HGB 10.5 gm/dL (11.4-16.0); Lymphocytes # (A) 0.3 k/uL (1.0-4.8); Lymphocytes % (A) 4 %; MCHC 33.4 g/dL (31.0-37.0); MCV 95.9 fL (80.0-100.0); Mean Platelet Volume 10.4; Monocytes # (A) 0.1 k/uL (0-1.0); Monocytes % (A) 2 %; Neutrophils # (A) 6.8 k/uL (1.3-7.7); Neutrophils % (A) 93 %; Platelet Count 216 k/uL (150-450); RBC 3.27 m/uL (3.80-5.40); RDW 13.4 % (11.5-15.5); WBC 7.3 k/uL (3.8-10.6)
--- NOTE | 2023-06-25 16:51 | XR ---
EXAMINATION TYPE: XR chest 1V portable DATE OF EXAM: 06/25/2023 4:39 PM COMPARISON: Chest radiographs from TECHNIQUE: XR chest 1V portable Frontal view of the chest. CLINICAL INDICATION:Female, 58 years old with history of Fever; FINDINGS: Lungs/Pleura: There is no evidence of pleural effusion, focal consolidation, or pneumothorax. Pulmonary vascularity: Unremarkable. Heart/mediastinum: Cardiomediastinal silhouette is unremarkable. Musculoskeletal: No acute osseous pathology. There is fixation hardware in the lower cervical spine. IMPRESSION: No acute cardiopulmonary disease/process.
[2023-06-25 16:54] LABS: ALT 22 U/L (4-34); AST 30 U/L (14-36); African American GFR (CKD) 41 (>60 ml/min/1.73 sqM); Albumin 3.5 g/dL (3.5-5.0); Alkaline Phosphatase 194 U/L (38-126); Anion Gap 14 mmol/L; Blood Urea Nitrogen 43 mg/dL (7-17); Calcium 8.9 mg/dL (8.4-10.2); Carbon Dioxide 11 mmol/L (22-30); Chloride 107 mmol/L (98-107); Glucose 372 mg/dL (74-99); Non-African American GFR(CKD) 36 (>60 ml/min/1.73 sqM); Potassium 4.4 mmol/L (3.5-5.1); Sodium 132 mmol/L (137-145); Total Bilirubin 0.5 mg/dL (0.2-1.3); Total Protein 6.9 g/dL (6.3-8.2)
[2023-06-25 16:56] LABS: INR 0.9 (<1.2); Partial Thromboplastin Time 24.7 sec (22.0-30.0); Prothrombin Time 9.9 sec (9.0-12.0)
[2023-06-25] MEDS: SODIUM CHLORIDE 0.9% 1,000 ML IV SCH (17:06)
[2023-06-25 17:07] LABS: Appearance,Urine Clear (Clear); Color,Urine Yellow; Glucose,Urine (UA) 4+ (Negative); Ketones,Urine 1+ (Negative); Protein,Urine 1+ (Negative)
[2023-06-25 17:08] LABS: Bilirubin,Urine Negative (Negative); Blood,Urine Moderate (Negative); Leukocyte Esterase,Urine Negative (Negative); Nitrite,Urine Negative (Negative); Urobilinogen,Urine <0.2 mg/dL (<2.0)
[2023-06-25 17:18] LABS: RBC,Urine 1 /hpf (0-5); Squamous Epithelial Cell,Urine 1 /hpf (0-4); WBC,Urine 1 /hpf (0-5)
[2023-06-25] MEDS ORDERED: ONDANSETRON 4 MG/2 ML VIAL IVP PRN (18:04)
[2023-06-25] MEDS ORDERED: NALOXONE 0.4 MG/ML 1 ML VIAL IV PRN (18:04)
[2023-06-25 20:45] LABS: Glucose,Whole Blood 136 mg/dL (70-110)
[2023-06-25] MEDS ORDERED: SODIUM CHLORIDE 0.9% 1,000 ML IV ONE (22:06)
[2023-06-25] MEDS ORDERED: DEXTROSE 50% SYRINGE 50 ML IVP PRN ×2 (22:13)
[2023-06-26] MEDS: ACETAMINOPHEN TAB 325 MG TAB PO PRN ×2 (00:22→12:32)
[2023-06-26] MEDS: PIPERACILLIN-TAZOBACTAM 3.375 GM in SODIUM CHLORIDE 0.9% 100 ML IVPB SCH ×3 (02:06→17:15)
[2023-06-26 06:06] LABS: Glucose,Whole Blood 140 mg/dL (70-110)
[2023-06-26] MEDS: FAMOTIDINE 20 MG TAB PO SCH ×2 (06:26→21:41)
[2023-06-26] MEDS: LEVOTHYROXINE 75 MCG TAB PO SCH (06:59)
[2023-06-26] MEDS: INSULIN DETEMIR (LEVEMIR) 100 UNIT/ML SYR SQ SCH (06:59)
[2023-06-26] MEDS ORDERED: LEVOTHYROXINE 25 MCG TAB PO SCH (09:00)
[2023-06-26] MEDS: SODIUM CHLORIDE 0.9% 1,000 ML IV SCH ×2 (09:08→09:09)
[2023-06-26] MEDS: INSULIN ASPART (NovoLOG) 100 UNIT/ML VIAL SQ SCH ×3 (09:10→17:02)
[2023-06-26] MEDS: VENLAFAXINE HCL ER 150 MG CAP PO SCH (09:13)
[2023-06-26] MEDS: MONTELUKAST 10 MG TAB PO SCH (09:13)
[2023-06-26 10:03] LABS: Basophils % (A) 0 %; Eosinophils % (A) 0 %; HCT 24.7 % (34.0-46.0); Hypochromasia Slight; Lymphocytes # (A) 0.9 k/uL (1.0-4.8); Lymphocytes % (A) 10 %; MCH 32.4 pg (25.0-35.0); MCHC 33.4 g/dL (31.0-37.0); Mean Platelet Volume 10.8; Monocytes # (A) 0.3 k/uL (0-1.0); Monocytes % (A) 4 %; Neutrophils # (A) 7.4 k/uL (1.3-7.7); Neutrophils % (A) 84 %; Platelet Count 194 k/uL (150-450); RBC 2.54 m/uL (3.80-5.40); RDW 13.9 % (11.5-15.5); WBC 8.8 k/uL (3.8-10.6)
[2023-06-26 10:16] LABS: ALT 48 U/L (4-34); AST 97 U/L (14-36); African American GFR (CKD) 35 (>60 ml/min/1.73 sqM); Albumin 2.5 g/dL (3.5-5.0); Alkaline Phosphatase 175 U/L (38-126); Anion Gap 9 mmol/L; Blood Urea Nitrogen 37 mg/dL (7-17); Calcium 7.4 mg/dL (8.4-10.2); Carbon Dioxide 11 mmol/L (22-30); Chloride 115 mmol/L (98-107); Glucose 141 mg/dL (74-99); HGB 8.2 gm/dL (11.4-16.0); Non-African American GFR(CKD) 30 (>60 ml/min/1.73 sqM); Potassium 3.6 mmol/L (3.5-5.1); Sodium 135 mmol/L (137-145); Total Bilirubin 0.3 mg/dL (0.2-1.3); Total Protein 5.1 g/dL (6.3-8.2)
[2023-06-26] MEDS ORDERED: LACTATED RINGERS 1,000 ML IV SCH (11:00)
[2023-06-26] MEDS ORDERED: POTASSIUM CHLORIDE ER 20 MEQ TAB.ER PO STA (11:38)
[2023-06-26 11:43] LABS: Glucose,Whole Blood 152 mg/dL (70-110)
[2023-06-26] MEDS ORDERED: DEXTROSE 5%-0.45% NACL 1,000 ML IV SCH (11:45)
--- NOTE | 2023-06-26 11:46 | P.HPIM ---
History of Present Illness 58-year-old female came in with compensative hyperglycemia, patient was also comparing of fever chills. Patient was complaining of nausea vomiting as well. Patient does take Motrin as outpatient for pain in the left hand for which patient underwent outpatient surgery for fracture. Patient was sitting Keflex at home. Patient is found to be febrile. Chest x-ray did not show any pneumonia. Urinalysis is essentially within normal limits. Patient has mildly elevated troponin of 0.143 and plateaued at that level. Patient was later doesn't have any fever chills patient was started on Zosyn. Patient was started on IV fluids leading to hyperchloremia. She was started on long-acting insulin female insulin sliding scale with which blood sugars are well controlled at this time. Patient was started on Pepcid as well as IV. Patient baseline creatinine is around 1 present creatinine is 1.8. REVIEW OF SYSTEMS: CONSTITUTIONAL: As mentioned in HPI HEENT: No recent visual problems or hearing problems. Denied any sore throat. CARDIOVASCULAR: No chest pain, orthopnea, PND, no palpitations, no syncope. PULMONARY: No shortness of breath, no cough, no hemoptysis. GASTROINTESTINAL: No diarrhea, no nausea, no vomiting, no abdominal pain. NEUROLOGICAL: No headaches, no weakness, no numbness. HEMATOLOGICAL: Denies any bleeding or petechiae. GENITOURINARY: Denies any burning micturition, frequency, or urgency. MUSCULOSKELETAL/RHEUMATOLOGICAL: Denies any joint pain, swelling, or any muscle pain. ENDOCRINE: Denies any polyuria or polydipsia. The rest of the 14-point review of systems is negative. PHYSICAL EXAMINATION: GENERAL: The patient is alert and oriented x3, not in any acute distress. Well developed, well nourished. HEENT: Pupils are round and equally reacting to light. EOMI. No scleral icterus. No conjunctival pallor. Normocephalic, atraumatic. No pharyngeal erythema. No thyromegaly. CARDIOVASCULAR: S1 and S2 present. No murmurs, rubs, or gallops. PULMONARY: Chest is clear to auscultation, no wheezing or crackles. ABDOMEN: Soft, nontender, nondistended, normoactive bowel sounds. No palpable organomegaly. MUSCULOSKELETAL: No joint swelling or deformity. EXTREMITIES: No cyanosis, clubbing, or pedal edema. Right hand post surgical packing NEUROLOGICAL: Gross neurological examination did not reveal any focal deficits. SKIN: No rashes. Assessment and plan -Fever/sepsis source is not clear considering her recent surgery, arthritic surgery was consulted and the infectious disease was consulted as well. Patient is being continued on broad-spectrum antibiotics blood cultures were obtained which are pending. -Nausea vomiting: Probably secondary to either sepsis or stress ulcers or hyperglycemia: Continue Pepcid IV fluids -Acute renal failure secondary to nausea vomiting and nonsteroidal anti- inflammatory medications which are being held at this time -Hypovolemic hyponatremia: Patient has hyperchloremic metabolic acidosis because of which IV fluids are being switched to half-normal saline Type 2 diabetes mellitus: Uncontrolled elevated blood sugars secondary to sepsis, patient will be continued on long-acting insulin along with sliding- scale insulin blood sugars are better controlled now -Hypothyroidism patient was resumed on her home dose of levothyroxine -Hypertension DVT prophylaxis: Subcutaneous heparin Past Medical History Past Medical History: COPD, Diabetes Mellitus, Eye Disorder, Hypertension, Musculoskeletal Disorder, Osteoarthritis (OA), Thyroid Disorder Additional Past Medical History / Comment(s): COPD, diabetes, GERD, osteoarthritis, seizure disorder secondary to hypoglycemia , hypothyroid, multiple sclerosis, diabetic peripheral neuropathy, optic neuritis, decreased vision in the eyes,; this problem, restless leg syndrome, colon polyps, anxiety depression. OA, efren in Rt ankle. Hx prob w/ cervical discs. Vaccinated for COVID 19 History of Any Multi-Drug Resistant Organisms: None Reported Past Surgical History: Adenoidectomy, Appendectomy, Tonsillectomy, Tubal Ligation Additional Past Surgical History / Comment(s): Laparoscopies. Pain procedures., cataract, neck fusion Past Anesthesia/Blood Transfusion Reactions: Motion Sickness Additional Past Anesthesia/Blood Transfusion Reaction / Comment(s): no blood transfusions Past Psychological History: Anxiety, Depression Smoking Status: Current some day smoker Past Alcohol Use History: Occasional Past Drug Use History: Marijuana - Past Family History Mother Family Medical History: Myocardial Infarction ([place]) Additional Family Medical History / Comment(s): Mother at age 48 from coronary artery disease. Patient does not have any brothers and sisters. She has one adult son with no major medical problems. Medications and Allergies Home Medications Medication Instructions Recorded Confirmed Type Ibuprofen [Motrin] 800 mg PO TID PRN 08/08/20 06/25/23 History Levothyroxine Sodium [Synthroid] 125 mcg PO DAILY 03/10/22 06/25/23 History Gabapentin [Neurontin] 800 mg PO TID 07/28/22 06/25/23 History Insulin Glargine,Hum.rec.anlog 18 unit SQ DAILY 07/28/22 06/25/23 History [Lantus Solostar Pen] Montelukast [Singulair] 10 mg PO DAILY 07/28/22 06/25/23 History Venlafaxine HCl [Effexor XR] 150 mg PO DAILY 12/11/22 06/25/23 History cloNIDine HCL [Catapres] 0.3 mg PO BID 12/11/22 06/25/23 History Cyclobenzaprine [Flexeril] 10 mg PO TID PRN #60 tab 12/17/22 06/25/23 Rx Levothyroxine Sodium [Synthroid] 25 mcg PO DAILY 03/17/23 06/25/23 History Losartan/Hydrochlorothiazide 1 tab PO DAILY 03/17/23 06/25/23 History [Losartan-Hctz 100-25 mg Tab] rOPINIRole HCL [Requip] 0.5 mg PO HS 03/17/23 06/25/23 History Cephalexin [Keflex] 500 mg PO DIRECTED 06/25/23 06/25/23 History Insulin NPH Hum/Reg Insulin Hm 10 unit SQ AC-BID 06/25/23 06/25/23 History [humuLIN 70/30 Kwikpen] Allergies Allergy/AdvReac Type Severity Reaction Status Date / Time No Known Allergies Allergy Verified 06/25/23 16:06 Physical Exam Vitals: Vital Signs Temp Pulse Pulse Pulse Resp BP BP 06/26/23 09:00 98.0 F 63 16 88/55 06/26/23 04:00 98.1 F 69 16 100/50 06/26/23 02:00 63 16 06/26/23 00:42 98.4 F 63 16 78/45 06/25/23 20:41 99.5 F 64 18 97/40 06/25/23 20:20 99.5 F 64 16 67/39 06/25/23 20:00 99.1 F 06/25/23 19:09 100.7 F H 80 16 93/55 06/25/23 18:28 100.9 F H 84 16 110/66 06/25/23 17:40 101.6 F H 98 17 135/60 06/25/23 16:45 101.9 F H 102 H 17 153/67 06/25/23 16:00 102.3 F H 121 H 20 189/81 Pulse Ox 06/26/23 09:00 100 06/26/23 04:00 98 06/26/23 02:00 06/26/23 00:42 100 06/25/23 20:41 98 06/25/23 20:20 100 06/25/23 20:00 06/25/23 19:09 98 06/25/23 18:28 98 06/25/23 17:40 100 06/25/23 16:45 99 06/25/23 16:00 95 Intake and Output 06/25/23 06/26/23 06/26/23 22:59 06:59 14:59 Intake Total 350 237 Balance 350 237 Intake: Oral 350 237 Other: Voiding Method Toilet Toilet # Voids 0 1 Weight 69.2 kg Results CBC & Chem 7: 06/26/23 09:09 06/26/23 09:09 Labs: Abnormal Lab Results - Last 24 Hours (Table) 06/25/23 06/25/23 06/25/23 Range/Units 15:51 16:23 16:23 RBC 3.27 L (3.80-5.40) m/uL Hgb 10.5 L (11.4-16.0) gm/dL Hct 31.4 L (34.0-46.0) % Lymphocytes # 0.3 L (1.0-4.8) k/uL Sodium 132 L (137-145) mmol/L Chloride (98-107) mmol/L Carbon Dioxide 11 L (22-30) mmol/L BUN 43 H (7-17) mg/dL Creatinine 1.58 H (0.52-1.04) mg/dL Glucose 372 H (74-99) mg/dL POC Glucose (mg/dL) 399 H (70-110) mg/dL Calcium (8.4-10.2) mg/dL AST (14-36) U/L ALT (4-34) U/L Alkaline Phosphatase 194 H (38-126) U/L Troponin I (0.000-0.034) ng/mL Total Protein (6.3-8.2) g/dL Albumin (3.5-5.0) g/dL 06/25/23 06/25/23 06/25/23 Range/Units 16:23 19:10 20:42 RBC (3.80-5.40) m/uL Hgb (11.4-16.0) gm/dL Hct (34.0-46.0) % Lymphocytes # (1.0-4.8) k/uL Sodium (137-145) mmol/L Chloride (98-107) mmol/L Carbon Dioxide (22-30) mmol/L BUN (7-17) mg/dL Creatinine (0.52-1.04) mg/dL Glucose (74-99) mg/dL POC Glucose (mg/dL) 136 H (70-110) mg/dL Calcium (8.4-10.2) mg/dL AST (14-36) U/L ALT (4-34) U/L Alkaline Phosphatase (38-126) U/L Troponin I 0.046 H* 0.143 H* (0.000-0.034) ng/mL Total Protein (6.3-8.2) g/dL Albumin (3.5-5.0) g/dL 06/26/23 06/26/23 06/26/23 Range/Units 06:04 09:09 09:09 RBC 2.54 L (3.80-5.40) m/uL Hgb 8.2 L D (11.4-16.0) gm/dL Hct 24.7 L (34.0-46.0) % Lymphocytes # 0.9 L (1.0-4.8) k/uL Sodium 135 L (137-145) mmol/L Chloride 115 H (98-107) mmol/L Carbon Dioxide 11 L (22-30) mmol/L BUN 37 H (7-17) mg/dL Creatinine 1.82 H (0.52-1.04) mg/dL Glucose 141 H (74-99) mg/dL POC Glucose (mg/dL) 140 H (70-110) mg/dL Calcium 7.4 L (8.4-10.2) mg/dL AST 97 H (14-36) U/L ALT 48 H (4-34) U/L Alkaline Phosphatase 175 H (38-126) U/L Troponin I (0.000-0.034) ng/mL Total Protein 5.1 L (6.3-8.2) g/dL Albumin 2.5 L (3.5-5.0) g/dL 06/26/23 Range/Units 11:41 RBC (3.80-5.40) m/uL Hgb (11.4-16.0) gm/dL Hct (34.0-46.0) % Lymphocytes # (1.0-4.8) k/uL Sodium (137-145) mmol/L Chloride (98-107) mmol/L Carbon Dioxide (22-30) mmol/L BUN (7-17) mg/dL Creatinine (0.52-1.04) mg/dL Glucose (74-99) mg/dL POC Glucose (mg/dL) 152 H (70-110) mg/dL Calcium (8.4-10.2) mg/dL AST (14-36) U/L ALT (4-34) U/L Alkaline Phosphatase (38-126) U/L Troponin I (0.000-0.034) ng/mL Total Protein (6.3-8.2) g/dL Albumin (3.5-5.0) g/dL Thrombosis Risk Factor Assmnt - Choose All That Apply Any of the Below Risk Factors Present?: Yes Each Factor Represents 1 point: History of prior major surgery (<1month) Thrombosis Risk Factor Assessment Total Risk Factor Score: 1 Thrombosis Risk Factor Assessment Level: Low Risk
--- NOTE | 2023-06-26 12:20 | P.CNOR ---
History of Present Illness - HPI Consult date: 06/26/23 Consult reason: other History of present illness: Patient is a 58 -year-old woman seen at bedside this am. She is S/P ORIF left hand/finger fracture per Dr. Valentine 2 days ago. She was admitted through the ED yesterday, 06/25/23, for evaluation for hyperglycemia. She was having some associated nausea and vomiting. Patient has not been feeling well since the morning. She had vomiting and chills on day of admit. She is denying those symptoms this morning. She states she is not having much pain at her surgical site. She states that the pain is mild and she takes ibuprofen for it. She has not noted fevers. She denies symptoms of infection, no congestion, sore throat, cough. No chest pain or dyspnea. No change in urination or bowel movements Review of Systems All systems: negative Constitutional: Denies chills, Denies fever Eyes: denies blurred vision, denies pain Ears, nose, mouth and throat: Denies headache, Denies sore throat Cardiovascular: Denies chest pain, Denies shortness of breath Respiratory: Denies cough Gastrointestinal: Denies abdominal pain, Denies diarrhea, Denies nausea, Denies vomiting Genitourinary: Denies dysuria, Denies hematuria Musculoskeletal: Denies myalgias Integumentary: Denies pruritus, Denies rash Neurological: Denies numbness, Denies weakness Psychiatric: Denies anxiety, Denies depression Endocrine: Denies fatigue, Denies weight change Past Medical History Past Medical History: COPD, Diabetes Mellitus, Eye Disorder, Hypertension, Musculoskeletal Disorder, Osteoarthritis (OA), Thyroid Disorder Additional Past Medical History / Comment(s): COPD, diabetes, GERD, osteoarthritis, seizure disorder secondary to hypoglycemia , hypothyroid, multiple sclerosis, diabetic peripheral neuropathy, optic neuritis, decreased vision in the eyes,; this problem, restless leg syndrome, colon polyps, anxiety depression. OA, efren in Rt ankle. Hx prob w/ cervical discs. Vaccinated for COVID 19 History of Any Multi-Drug Resistant Organisms: None Reported Past Surgical History: Adenoidectomy, Appendectomy, Tonsillectomy, Tubal Ligation Additional Past Surgical History / Comment(s): Laparoscopies. Pain procedures., cataract, neck fusion Past Anesthesia/Blood Transfusion Reactions: Motion Sickness Additional Past Anesthesia/Blood Transfusion Reaction / Comm: no blood transfusions Past Psychological History: Anxiety, Depression Smoking Status: Current some day smoker Past Alcohol Use History: Occasional Past Drug Use History: Marijuana - Past Family History Mother Family Medical History: Myocardial Infarction ([place]) Additional Family Medical History / Comment(s): Mother at age 48 from coronary artery disease. Patient does not have any brothers and sisters. She has one adult son with no major medical problems. Medications and Allergies Home Medications Medication Instructions Recorded Confirmed Type Ibuprofen [Motrin] 800 mg PO TID PRN 08/08/20 06/25/23 History Levothyroxine Sodium [Synthroid] 125 mcg PO DAILY 03/10/22 06/25/23 History Gabapentin [Neurontin] 800 mg PO TID 07/28/22 06/25/23 History Insulin Glargine,Hum.rec.anlog 18 unit SQ DAILY 07/28/22 06/25/23 History [Lantus Solostar Pen] Montelukast [Singulair] 10 mg PO DAILY 07/28/22 06/25/23 History Venlafaxine HCl [Effexor XR] 150 mg PO DAILY 12/11/22 06/25/23 History cloNIDine HCL [Catapres] 0.3 mg PO BID 12/11/22 06/25/23 History Cyclobenzaprine [Flexeril] 10 mg PO TID PRN #60 tab 12/17/22 06/25/23 Rx Levothyroxine Sodium [Synthroid] 25 mcg PO DAILY 03/17/23 06/25/23 History Losartan/Hydrochlorothiazide 1 tab PO DAILY 03/17/23 06/25/23 History [Losartan-Hctz 100-25 mg Tab] rOPINIRole HCL [Requip] 0.5 mg PO HS 03/17/23 06/25/23 History Cephalexin [Keflex] 500 mg PO DIRECTED 06/25/23 06/25/23 History Insulin NPH Hum/Reg Insulin Hm 10 unit SQ AC-BID 06/25/23 06/25/23 History [humuLIN 70/30 Kwikpen] Allergies Allergy/AdvReac Type Severity Reaction Status Date / Time No Known Allergies Allergy Verified 06/25/23 16:06 Physical Examination Inspection of the left upper extremity shows bandage, splint and wrap intact. It appears appropriate fitting and well-padded. Neurovascular status is intact distally with less than 2 second capillary refill, motor and sensation to all digits. There is no evidence of bleeding or drainage. Results - Labs Labs: Abnormal Lab Results - Last 24 Hours (Table) 06/25/23 06/25/23 06/25/23 Range/Units 15:51 16:23 16:23 RBC 3.27 L (3.80-5.40) m/uL Hgb 10.5 L (11.4-16.0) gm/dL Hct 31.4 L (34.0-46.0) % Lymphocytes # 0.3 L (1.0-4.8) k/uL Sodium 132 L (137-145) mmol/L Chloride (98-107) mmol/L Carbon Dioxide 11 L (22-30) mmol/L BUN 43 H (7-17) mg/dL Creatinine 1.58 H (0.52-1.04) mg/dL Glucose 372 H (74-99) mg/dL POC Glucose (mg/dL) 399 H (70-110) mg/dL Calcium (8.4-10.2) mg/dL AST (14-36) U/L ALT (4-34) U/L Alkaline Phosphatase 194 H (38-126) U/L Troponin I (0.000-0.034) ng/mL Total Protein (6.3-8.2) g/dL Albumin (3.5-5.0) g/dL 06/25/23 06/25/23 06/25/23 Range/Units 16:23 19:10 20:42 RBC (3.80-5.40) m/uL Hgb (11.4-16.0) gm/dL Hct (34.0-46.0) % Lymphocytes # (1.0-4.8) k/uL Sodium (137-145) mmol/L Chloride (98-107) mmol/L Carbon Dioxide (22-30) mmol/L BUN (7-17) mg/dL Creatinine (0.52-1.04) mg/dL Glucose (74-99) mg/dL POC Glucose (mg/dL) 136 H (70-110) mg/dL Calcium (8.4-10.2) mg/dL AST (14-36) U/L ALT (4-34) U/L Alkaline Phosphatase (38-126) U/L Troponin I 0.046 H* 0.143 H* (0.000-0.034) ng/mL Total Protein (6.3-8.2) g/dL Albumin (3.5-5.0) g/dL 06/26/23 06/26/23 06/26/23 Range/Units 06:04 09:09 09:09 RBC 2.54 L (3.80-5.40) m/uL Hgb 8.2 L D (11.4-16.0) gm/dL Hct 24.7 L (34.0-46.0) % Lymphocytes # 0.9 L (1.0-4.8) k/uL Sodium 135 L (137-145) mmol/L Chloride 115 H (98-107) mmol/L Carbon Dioxide 11 L (22-30) mmol/L BUN 37 H (7-17) mg/dL Creatinine 1.82 H (0.52-1.04) mg/dL Glucose 141 H (74-99) mg/dL POC Glucose (mg/dL) 140 H (70-110) mg/dL Calcium 7.4 L (8.4-10.2) mg/dL AST 97 H (14-36) U/L ALT 48 H (4-34) U/L Alkaline Phosphatase 175 H (38-126) U/L Troponin I (0.000-0.034) ng/mL Total Protein 5.1 L (6.3-8.2) g/dL Albumin 2.5 L (3.5-5.0) g/dL 06/26/23 Range/Units 11:41 RBC (3.80-5.40) m/uL Hgb (11.4-16.0) gm/dL Hct (34.0-46.0) % Lymphocytes # (1.0-4.8) k/uL Sodium (137-145) mmol/L Chloride (98-107) mmol/L Carbon Dioxide (22-30) mmol/L BUN (7-17) mg/dL Creatinine (0.52-1.04) mg/dL Glucose (74-99) mg/dL POC Glucose (mg/dL) 152 H (70-110) mg/dL Calcium (8.4-10.2) mg/dL AST (14-36) U/L ALT (4-34) U/L Alkaline Phosphatase (38-126) U/L Troponin I (0.000-0.034) ng/mL Total Protein (6.3-8.2) g/dL Albumin (3.5-5.0) g/dL H & H 06/25/23 06/26/23 Range/Units 16:23 09:09 Hgb 10.5 L 8.2 L D (11.4-16.0) gm/dL Hct 31.4 L 24.7 L (34.0-46.0) % Coagulation 06/25/23 Range/Units 16:23 INR 0.9 (<1.2) Result Diagrams: 06/26/23 09:09 06/26/23 09:09 Assessment and Plan (1) History of open reduction and internal fixation (ORIF) procedure Narrative/Plan: She is stable and there appears to be no issues in regards to her hand procedure. Maintain bandage, splint and wrap. Continue elevation and ice when necessary. Continue pain management. Follow up with Dr. Valentine as an outpatient. We will sign off for now. thank you. Current Visit: Yes Status: Acute Priority: Medium Code(s): Z98.890 - OTHER SPECIFIED POSTPROCEDURAL STATES SNOMED Code(s): 960415204 Time with Patient: Less than 30
[2023-06-26] MEDS: SODIUM CHLORIDE 0.45% 1,000 ML IV SCH (12:32)
[2023-06-26] MEDS: IOPAMIDOL CONTRAST (ORAL USE) VIAL PO PRN ×2 (14:38→16:16)
[2023-06-26 16:08] LABS: Glucose,Whole Blood 99 mg/dL (70-110)
[2023-06-26] MEDS ORDERED: traMADol 50 MG TAB PO STA (17:09)
--- NOTE | 2023-06-26 17:14 | CT ---
EXAMINATION TYPE: CT abdomen pelvis wo con CT DLP: 722.8 mGycm, Automated exposure control for dose reduction was used. DATE OF EXAM: 06/26/2023 5:00 PM COMPARISON: CT abdomen pelvis most recent from 12/15/2018 . CLINICAL INDICATION:Female, 58 years old with history of fever/vomiting; Fever/vomiting. TECHNIQUE: Standard CT of the abdomen and pelvis following the administration of oral contrast. Cor onal and sagittal reformats were performed. FINDINGS: Evaluation is limited due to lack of intravenous contrast. LOWER CHEST: Development of right lower lobe spiculated nodule measuring 2.6 x 1.8 cm (series 204, im age 11). Bibasilar dependent subsegmental atelectasis. Mitral annulus calcifications. Coronary artery calcifications. ABDOMEN LIVER: Unremarkable noncontrast appearance GALLBLADDER AND BILE DUCTS: Unremarkable noncontrast appearance PANCREAS: Unremarkable noncontrast appearance SPLEEN: Unremarkable noncontrast appearance ADRENAL GLANDS: Unremarkable noncontrast appearance. KIDNEYS AND URETERS: No evidence of hydronephrosis or renal calculus. Nonspecific bilateral perinephr ic fat stranding. PELVIS BLADDER: Unremarkable REPRODUCTIVE: Unremarkable noncontrast appearance ABDOMEN & PELVIS STOMACH AND BOWEL: Stomach and duodenum are unremarkable no focal bowel wall thickening or stranding inflammatory changes. Enteric contrast reaches the descending colon. Post surgical changes from appen dectomy suggested. No evidence of bowel obstruction. PERITONEUM: No evidence of pneumoperitoneum or free fluid. VASCULATURE: Mild atherosclerotic calcifications are present throughout the abdominal aorta and its b ranches. No evidence of aortic aneurysm. Few pelvic phlebolith. MUSCULOSKELETAL: No acute osseous abnormalities. Mild disc degeneration changes are present throughou t the thoracolumbar spine. LYMPH NODES: No gross evidence for lymphadenopathy. SOFT TISSUE/ABDOMINAL WALL: Mild diffuse anasarca. Tiny fat filled umbilical hernia. IMPRESSION: 1. No acute abdominal/pelvic process within limitations of a noncontrast exam. 2. Development of right lower lobe spiculated 2.6 x 1.8 cm nodule. Raises concern for possible malign royal. Further evaluation with PET/CT is recommended.
[2023-06-26] MEDS: HEPARIN SODIUM,PORCINE/PF 5,000 UNIT/0.5 ML SYRINGE SQ SCH (17:15)
[2023-06-26 19:58] LABS: Glucose,Whole Blood 130 mg/dL (70-110)
[2023-06-27] MEDS: INSULIN ASPART (NovoLOG) 100 UNIT/ML VIAL SQ SCH ×5 (04:44→20:55)
[2023-06-27] MEDS: AMPICILLIN-SULBACTAM 3 GM in SODIUM CHLORIDE 0.9% 100 ML IVPB SCH ×5 (04:55→22:50)
[2023-06-27] MEDS: HEPARIN SODIUM,PORCINE/PF 5,000 UNIT/0.5 ML SYRINGE SQ SCH ×4 (05:12→22:50)
[2023-06-27 06:07] LABS: Glucose,Whole Blood 133 mg/dL (70-110)
[2023-06-27] MEDS: LEVOTHYROXINE 75 MCG TAB PO SCH (07:13)
[2023-06-27 08:22] LABS: Basophils % (A) 0 %; Eosinophils % (A) 0 %; HCT 25.9 % (34.0-46.0); HGB 8.2 gm/dL (11.4-16.0); Hypochromasia Slight; Lymphocytes # (A) 1.2 k/uL (1.0-4.8); Lymphocytes % (A) 16 %; MCH 30.8 pg (25.0-35.0); MCHC 31.7 g/dL (31.0-37.0); MCV 97.2 fL (80.0-100.0); Mean Platelet Volume 10.7; Monocytes # (A) 0.4 k/uL (0-1.0); Monocytes % (A) 5 %; Neutrophils # (A) 5.8 k/uL (1.3-7.7); Neutrophils % (A) 76 %; Platelet Count 195 k/uL (150-450); RBC 2.66 m/uL (3.80-5.40); RDW 13.8 % (11.5-15.5); WBC 7.6 k/uL (3.8-10.6)
[2023-06-27 08:52] LABS: ALT 95 U/L (4-34); AST 138 U/L (14-36); African American GFR (CKD) 47 (>60 ml/min/1.73 sqM); Albumin 2.8 g/dL (3.5-5.0); Alkaline Phosphatase 243 U/L (38-126); Anion Gap 10 mmol/L; Blood Urea Nitrogen 24 mg/dL (7-17); Calcium 8.1 mg/dL (8.4-10.2); Carbon Dioxide 11 mmol/L (22-30); Chloride 113 mmol/L (98-107); Glucose 129 mg/dL (74-99); Magnesium 1.9 mg/dL (1.6-2.3); Non-African American GFR(CKD) 41 (>60 ml/min/1.73 sqM); Sodium 134 mmol/L (137-145); Total Bilirubin 0.3 mg/dL (0.2-1.3); Total Protein 5.7 g/dL (6.3-8.2)
[2023-06-27 09:04] LABS: Potassium 4.4 mmol/L (3.5-5.1)
[2023-06-27 09:42] LABS: C Reactive Protein 7.3 mg/dL (<1.0)
[2023-06-27] MEDS: ACETAMINOPHEN TAB 325 MG TAB PO PRN (09:52)
[2023-06-27] MEDS: MONTELUKAST 10 MG TAB PO SCH (09:53)
[2023-06-27] MEDS: VENLAFAXINE HCL ER 150 MG CAP PO SCH (09:53)
[2023-06-27] MEDS: INSULIN DETEMIR (LEVEMIR) 100 UNIT/ML SYR SQ SCH (09:54)
[2023-06-27] MEDS ORDERED: IPRATROPIUM-ALBUTEROL 3 ML NEB INHALATION PRN (10:12)
[2023-06-27] MEDS: polyethylene glycoL 3350 17 GM POWD.PACK PO SCH (10:55)
[2023-06-27] MEDS: traMADol 50 MG TAB PO PRN ×2 (10:56→16:26)
[2023-06-27] MEDS: BENZONATATE 100 MG CAP PO SCH ×2 (10:56→20:59)
[2023-06-27] MEDS: DOCUSATE 100 MG CAP PO SCH (10:56)
[2023-06-27] MEDS: SODIUM CHLORIDE 0.45% 1,000 ML IV SCH ×2 (10:56→16:28)
[2023-06-27] MEDS: IPRATROPIUM-ALBUTEROL 3 ML NEB INHALATION SCH ×3 (11:27→22:26)
[2023-06-27 11:33] LABS: Glucose,Whole Blood 161 mg/dL (70-110)
[2023-06-27] MEDS ORDERED: BENZOCAINE/MENTHOL LOZENG 1 EACH LOZENGE MUCOUS MEM PRN (14:56)
--- NOTE | 2023-06-27 15:06 | P.PN ---
Subjective Progress Note Date: 06/27/23 58-year-old female came in with compensative hyperglycemia, patient was also comparing of fever chills. Patient was complaining of nausea vomiting as well. Patient does take Motrin as outpatient for pain in the left hand for which patient underwent outpatient surgery for fracture. Patient was sitting Keflex at home. Patient is found to be febrile. Chest x-ray did not show any pneumonia. Urinalysis is essentially within normal limits. Patient has mildly elevated troponin of 0.143 and plateaued at that level. Patient was later doesn't have any fever chills patient was started on Zosyn. Patient was started on IV fluids leading to hyperchloremia. She was started on long-acting insulin female insulin sliding scale with which blood sugars are well controlled at this time. Patient was started on Pepcid as well as IV. Patient baseline creatinine is around 1 present creatinine is 1.8. 06/27/2023 Patient evaluated today sitting up in the bed, no acute complaints overnight. Patient remains afebrile the last [address] completed shows no acute abdominopelvic process within limitations of a noncontrast exam there is development of a right lower lobe spiculated 2.6 x 1.8 centimeter nodule that raises concern for possibly malignancy further evaluation with PET CT is r ecommended. Blood culture showing gram-negative bacilli and will be repeated infectious diseases follow patient remains on IV antibiotics in the form of IV Unasyn. White count is normalized, sodium 134, potassium of 4.5, BUN 24, creatinine 1.42, liver enzymes are elevated and CRP is mildly elevated. She continues on half-normal saline at 75 mls/hr. Orthopedics has evaluated patient and her recent left hand ORIF recommending to continue with current dressing changes. Patient complaining of some cough today and is offered Tessalon Perles and Robitussin. Glucose has improved. Review of Systems Constitutional: Denied any fatigue denied any fever. Cardio vascular: denied any chest pain, palpitations Gastrointestinal: denied any nausea, vomiting, diarrhea Pulmonary: Denied any shortness of breath cough Neurologic denied any new focal deficits All inpatient medications were reviewed and appropriate changes in these medications as dictated in the interval history and assessment and plan. PHYSICAL EXAMINATION: GENERAL: The patient is alert and oriented x3, not in any acute distress. Well developed, well nourished. HEENT: Pupils are round and equally reacting to light. EOMI. No scleral icterus. No conjunctival pallor. Normocephalic, atraumatic. No pharyngeal erythema. No thyromegaly. CARDIOVASCULAR: S1 and S2 present. No murmurs, rubs, or gallops. PULMONARY: Chest is clear to auscultation, no wheezing or crackles. ABDOMEN: Soft, nontender, nondistended, normoactive bowel sounds. No palpable organomegaly. MUSCULOSKELETAL: No joint swelling or deformity. EXTREMITIES: No cyanosis, clubbing, or pedal edema. Left hand post surgical packing NEUROLOGICAL: Gross neurological examination did not reveal any focal deficits. SKIN: No rashes. Dressing intact to left hand. Assessment and plan -Fever/sepsis patient has gram negative bacilli in the blood and repeat blood cu ltures are currently pending, ID is on consultation and patient remains on IV unasyn -Recent left hand ORIF 2 days ago, orthopedics has evaluated the patient and surgical site stable with no issues in regards to the procedure and recommending to continue with bandage splint and wrap. Can offer ice and elevation, and pain management and keep same follow up with Dr Valentine on discharge. Recent surgery not felt to be source of infection at this time. -Nausea vomiting: Probably secondary to either sepsis or stress ulcers or hyperglycemia: Continue Pepcid IV fluids, symptoms have resolved at this time patient is tolerating diet -Acute renal failure secondary to nausea vomiting and nonsteroidal anti- inflammatory medications which are being held at this time, renal function is improving and will recommend to repeat labs in the AM -Hypovolemic hyponatremia: Patient has hyperchloremic metabolic acidosis This has improved and patient will continue on half normal saline and again repeat labs in AM -Type 2 diabetes mellitus: Uncontrolled elevated blood sugars likely from sepsis, patient remains on sliding scale insulin coverage along with levemir and blood glucose is improving. -Right lower lobe spiculated pulmonary nodule measuring 2.6 x 1.8 with concern for underlying malignancy and pulmonary has been consulted for further evaluation -Hypothyroidism -Hypertension -HX of COPD possible mild acute excerbation patient complaining of cough will offer supportive care and check sputum culture source of infection possible respiratory. -Diabetic Neuropathy -Restless leg syndrome -Chronic and ongoing nicotine use down to 1/2 pack per day -Hx of alcohol abuse -Marijuana use -Anxiety/Depression DVT prophylaxis: Subcutaneous heparin GI prophylaxis:Pepcid Full Code The impression and plan of care has been dictated by Mariza Rees, Nurse Practitioner as directed. Dr. Orin MD I have performed a history and physical examination and medical decision making of this patient, discussed the same with the dictator, and agree with the dictators assessment and plan as written, documented as a scribe. Based on total visit time, I have performed more than 50% of this visit. Objective - Vital Signs Vital signs: Vital Signs Temp 98.1 F 06/27/23 12:00 Pulse 67 06/27/23 12:00 Resp 16 06/27/23 12:00 BP 144/66 06/27/23 12:00 Pulse Ox 100 06/27/23 12:00 FiO2 Intake & Output 06/26/23 06/27/23 06/27/23 18:59 06:59 18:59 Intake Total 597 240 Output Total 300 Balance 597 -60 Intake: Oral 597 240 Output: Urine 300 Other: Voiding Method Toilet # Voids 1 - Labs CBC & Chem 7: 06/27/23 07:26 06/27/23 07:26 Labs: Abnormal Lab Results - Last 24 Hours (Table) 06/26/23 06/27/23 06/27/23 Range/Units 19:56 06:05 07:26 RBC 2.66 L (3.80-5.40) m/uL Hgb 8.2 L (11.4-16.0) gm/dL Hct 25.9 L (34.0-46.0) % Sodium (137-145) mmol/L Chloride (98-107) mmol/L Carbon Dioxide (22-30) mmol/L BUN (7-17) mg/dL Creatinine (0.52-1.04) mg/dL Glucose (74-99) mg/dL POC Glucose (mg/dL) 130 H 133 H (70-110) mg/dL Calcium (8.4-10.2) mg/dL AST (14-36) U/L ALT (4-34) U/L Alkaline Phosphatase (38-126) U/L C-Reactive Protein (<1.0) mg/dL Total Protein (6.3-8.2) g/dL Albumin (3.5-5.0) g/dL 06/27/23 06/27/23 Range/Units 07:26 11:31 RBC (3.80-5.40) m/uL Hgb (11.4-16.0) gm/dL Hct (34.0-46.0) % Sodium 134 L (137-145) mmol/L Chloride 113 H (98-107) mmol/L Carbon Dioxide 11 L (22-30) mmol/L BUN 24 H (7-17) mg/dL Creatinine 1.42 H (0.52-1.04) mg/dL Glucose 129 H (74-99) mg/dL POC Glucose (mg/dL) 161 H (70-110) mg/dL Calcium 8.1 L (8.4-10.2) mg/dL AST 138 H (14-36) U/L ALT 95 H (4-34) U/L Alkaline Phosphatase 243 H (38-126) U/L C-Reactive Protein 7.3 H (<1.0) mg/dL Total Protein 5.7 L (6.3-8.2) g/dL Albumin 2.8 L (3.5-5.0) g/dL Microbiology - Last 24 Hours (Table) 06/25/23 16:23 Blood Culture Gram Stain - Preliminary Blood 06/25/23 16:23 Blood Culture Gram Stain - Preliminary Blood Assessment and Plan Time with Patient: Less than 30
[2023-06-27 16:30] LABS: Glucose,Whole Blood 168 mg/dL (70-110)
[2023-06-27 17:02] LABS: Appearance,Urine Clear (Clear); Bilirubin,Urine Negative (Negative); Blood,Urine Small (Negative); Color,Urine Light Yellow; Glucose,Urine (UA) Negative (Negative); Ketones,Urine Trace (Negative); Leukocyte Esterase,Urine Negative (Negative); Nitrite,Urine Negative (Negative); PH, Urine 6.5 (5.0-8.0); Protein,Urine Trace (Negative); Squamous Epithelial Cell,Urine 4 /hpf (0-4); Urobilinogen,Urine <2.0 mg/dL (<2.0); WBC,Urine 1 /hpf (0-5)
[2023-06-27 20:12] LABS: Glucose,Whole Blood 151 mg/dL (70-110)
[2023-06-27] MEDS: guaiFENesin SYRUP 100MG/5ML 200 MG/10 ML CUP PO PRN (20:59)
[2023-06-27] MEDS: FAMOTIDINE 20 MG TAB PO SCH (20:59)
--- NOTE | 2023-06-28 01:26 | P.CNPUL ---
History of Present Illness Consult date: 06/28/23 Requesting physician: Mariza Rees Reason for consult: other (pulmonary nodule) Chief complaint: nausea and vomiting History of present illness: I am seeing this patient in consultation today 06/28/2023 on the cardiac stepdown unit for a suspicious right lower lobe pulmonary nodule that was incidentally found on abdominal and pelvis CT. Patient is a 58-year-old white female with past medical history significant for being an ex-smoker, quitting 6 months ago and having over a [id number] history, COPD, diabetes mellitus, diabetic neuropathy, hypertension, hypothyroidism. Her primary care provider is Dr. Ryan Isbell. 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 Patient recently had a revised ORIF of the left hand for a fracture that occurred approximately one month ago. She was having episodes of nausea and vomiting, fever, accompanied with hyperglycemia for 24 hours preceding her arrival to the emergency room on June 25. Possibly had a mild component of DKA on arrival, which has improved. Blood cultures are also positive for gram-negative bacilli, and the patient is covered on Unasyn per infectious disease. No obvious source has been identified yet. Patient's nausea and vomiting has subsided. A nonenhanced abdominal and pelvis CT done yesterday did not show any acute intra- abdominal process. It did show a right lower lobe spiculated 2.6 x 1.8 cm nodule concerning for possible malignancy. This will have to be worked up once the patient's bacteremia has resolved. I did not see any prior CTs for comparison. Patient is currently sitting up in bed, on room air, in no acute distress. She does report mild chronic shortness of breath especially on exertion. She does have an intermittent dry cough and reports chest tightness. Denies any hemoptysis or chest pain. Most recent CBC shows a WBC count of 7.6, hemoglobin 8.2, hematocrit 25.9, and platelets 195. Most recent BMP from yesterday shows a sodium 134, potassium 4.4, chloride 113, serum bicarb 11, anion gap 10, BUN 24, creatinine 1.42, glucose 129. Half-normal saline is infusing at 75 mL per hour. Patient does have a component of acute kidney injury possibly related to NSAID use postoperatively. Urinalysis was not concerning for UTI. LFTs are mildly elevated. Negative for COVID-19. T-max was 102.3F on arrival, currently afebrile. Vital signs are stable. Review of Systems REVIEW OF SYSTEMS: CONSTITUTIONAL: Denies any recent significant weight loss or weight gain. EYES: Denies change in vision. EARS, NOSE, MOUTH, THROAT: Denies headaches, denies sore throat. CARDIOVASCULAR: Denies chest pain, palpitations, syncopal episodes, lower extremity swelling, orthopnea. RESPIRATORY: see HPI GASTROINTESTINAL: Denies change in appetite, abdominal pain, nausea and vomiting, or diarrhea GENITOURINARY: Denies hematuria, denies infections. MUSKULOSKELETAL: Patient does report mild left hand pain INTEGUMENTARY: Denies rash, denies eczema. NEUROLOGICAL: Denies recent memory loss, no recent seizure activity. PSYCHIATRIC: Denies anxiety, denies depression. HEMATOLOGIC/LYMPHATIC: Denies anemia, denies enlarged lymph node Past Medical History Past Medical History: COPD, Diabetes Mellitus, Eye Disorder, Hypertension, Musculoskeletal Disorder, Osteoarthritis (OA), Thyroid Disorder Additional Past Medical History / Comment(s): COPD, diabetes, GERD, osteoarthritis, seizure disorder secondary to hypoglycemia , hypothyroid, multiple sclerosis, diabetic peripheral neuropathy, optic neuritis, decreased vision in the eyes,; this problem, restless leg syndrome, colon polyps, anxiety depression. OA, efren in Rt ankle. Hx prob w/ cervical discs. Vaccinated for COVID 19 History of Any Multi-Drug Resistant Organisms: None Reported Past Surgical History: Adenoidectomy, Appendectomy, Tonsillectomy, Tubal Ligation Additional Past Surgical History / Comment(s): Laparoscopies. Pain procedures., cataract, neck fusion Past Anesthesia/Blood Transfusion Reactions: Motion Sickness Additional Past Anesthesia/Blood Transfusion Reaction / Comment(s): no blood transfusions Past Psychological History: Anxiety, Depression Smoking Status: Current some day smoker Past Alcohol Use History: Occasional Past Drug Use History: Marijuana - Past Family History Mother Family Medical History: Myocardial Infarction ([place]) Additional Family Medical History / Comment(s): Mother at age 48 from coronary artery disease. Patient does not have any brothers and sisters. She has one adult son with no major medical problems. Medications and Allergies Home Medications Medication Instructions Recorded Confirmed Type Ibuprofen [Motrin] 800 mg PO TID PRN 08/08/20 06/25/23 History Levothyroxine Sodium [Synthroid] 125 mcg PO DAILY 03/10/22 06/25/23 History Gabapentin [Neurontin] 800 mg PO TID 07/28/22 06/25/23 History Insulin Glargine,Hum.rec.anlog 18 unit SQ DAILY 07/28/22 06/25/23 History [Lantus Solostar Pen] Montelukast [Singulair] 10 mg PO DAILY 07/28/22 06/25/23 History Venlafaxine HCl [Effexor XR] 150 mg PO DAILY 12/11/22 06/25/23 History cloNIDine HCL [Catapres] 0.3 mg PO BID 12/11/22 06/25/23 History Cyclobenzaprine [Flexeril] 10 mg PO TID PRN #60 tab 12/17/22 06/25/23 Rx Levothyroxine Sodium [Synthroid] 25 mcg PO DAILY 03/17/23 06/25/23 History Losartan/Hydrochlorothiazide 1 tab PO DAILY 03/17/23 06/25/23 History [Losartan-Hctz 100-25 mg Tab] rOPINIRole HCL [Requip] 0.5 mg PO HS 03/17/23 06/25/23 History Cephalexin [Keflex] 500 mg PO DIRECTED 06/25/23 06/25/23 History Insulin NPH Hum/Reg Insulin Hm 10 unit SQ AC-BID 06/25/23 06/25/23 History [humuLIN 70/30 Kwikpen] Allergies Allergy/AdvReac Type Severity Reaction Status Date / Time No Known Allergies Allergy Verified 06/25/23 16:06 Physical Exam Vitals: Vital Signs Temp Pulse Pulse Pulse Resp BP Pulse Ox 06/27/23 22:50 99.6 F 100 18 152/70 98 06/27/23 22:39 68 06/27/23 22:26 68 06/27/23 22:22 116 H 06/27/23 20:00 98.7 F 85 16 156/78 100 06/27/23 16:44 60 06/27/23 16:34 62 06/27/23 16:00 98.4 F 75 16 132/60 98 06/27/23 14:00 16 06/27/23 12:00 98.1 F 67 16 144/66 100 06/27/23 11:41 66 06/27/23 11:28 64 99 06/27/23 09:30 98.0 F 60 16 128/60 99 07/30/23 04:00 96.5 F L 70 16 113/75 98 06/27/23 02:00 65 69 16 Intake and Output 06/27/23 06/27/23 06/28/23 14:59 22:59 06:59 Intake Total 240 0 Output Total 300 Balance -60 0 Intake: Oral 240 0 Output: Urine 300 Other: Voiding Method Toilet # Voids 1 GENERAL EXAM: Alert,58-year-old white female appearing stated age , comfortable in no apparent distress. HEAD: Normocephalic and atraumatic EYES: Normal reaction of pupils, equal size. NOSE: Clear with pink turbinates. THROAT: No erythema or exudates. NECK: No masses, no JVD. CHEST: No chest wall deformity. LUNGS: Equal air entry with very mild end expiratory wheezes heard posteriorly throughout. No crackles, wheeze, rhonchi or focal dullness. On room air. No conversational dyspnea or accessory muscle use.. CVS: S1 and S2 normal with no audible murmur, regular rhythm. No extra heart sounds ABDOMEN: No hepatosplenomegaly, active bowel sounds, no guarding or rigidity. SPINE: No scoliosis or deformity SKIN: No rashes CENTRAL NERVOUS SYSTEM: No focal deficits, tone is normal in all 4 extremities. EXTREMITIES: left hand and arm are in a splint. There is no peripheral edema, clubbing, or cyanosis. Peripheral pulses are intact. Results - Laboratory Findings CBC and BMP: 06/28/23 11:00 06/28/23 11:00 PT/INR, D-dimer PT 9.9 sec (9.0-12.0) 06/25/23 16: INR 0.9 (<1.2) 06/25/23 16:23 Abnormal lab findings: Abnormal Labs 06/25/23 06/25/23 06/25/23 15:51 16:23 16:23 RBC 3.27 L Hgb 10.5 L Hct 31.4 L Lymphocytes # 0.3 L Sodium 132 L Chloride Carbon Dioxide 11 L BUN 43 H Creatinine 1.58 H Glucose 372 H POC Glucose (mg/dL) 399 H Hemoglobin A1c Calcium AST ALT Alkaline Phosphatase 194 H Troponin I C-Reactive Protein Total Protein Albumin 06/25/23 06/25/23 06/25/23 16: 19:10 20:42 RBC Hgb Hct Lymphocytes # Sodium Chloride Carbon Dioxide BUN Creatinine Glucose POC Glucose (mg/dL) 136 H Hemoglobin A1c Calcium AST ALT Alkaline Phosphatase Troponin I 0.046 H* 0.143 H* C-Reactive Protein Total Protein Albumin 06/26/23 06/26/23 06/26/23 06:04 09:09 09:09 RBC 2.54 L Hgb 8.2 L D Hct 24.7 L Lymphocytes # 0.9 L Sodium 135 L Chloride 115 H Carbon Dioxide 11 L BUN 37 H Creatinine 1.82 H Glucose 141 H POC Glucose (mg/dL) 140 H Hemoglobin A1c Calcium 7.4 L AST 97 H ALT 48 H Alkaline Phosphatase 175 H Troponin I C-Reactive Protein Total Protein 5.1 L Albumin 2.5 L 06/26/23 06/26/23 06/26/23 09:09 11:41 19:56 RBC Hgb Hct Lymphocytes # Sodium Chloride Carbon Dioxide BUN Creatinine Glucose POC Glucose (mg/dL) 152 H 130 H Hemoglobin A1c 8.2 H Calcium AST ALT Alkaline Phosphatase Troponin I C-Reactive Protein Total Protein Albumin 06/27/23 06/27/23 06/27/23 06:05 07:26 07:26 RBC 2.66 L Hgb 8.2 L Hct 25.9 L Lymphocytes # Sodium 134 L Chloride 113 H Carbon Dioxide 11 L BUN 24 H Creatinine 1.42 H Glucose 129 H POC Glucose (mg/dL) 133 H Hemoglobin A1c Calcium 8.1 L AST 138 H ALT 95 H Alkaline Phosphatase 243 H Troponin I C-Reactive Protein 7.3 H Total Protein 5.7 L Albumin 2.8 L 06/27/23 06/27/23 06/27/23 11:31 16:29 20:08 RBC Hgb Hct Lymphocytes # Sodium Chloride Carbon Dioxide BUN Creatinine Glucose POC Glucose (mg/dL) 161 H 168 H 151 H Hemoglobin A1c Calcium AST ALT Alkaline Phosphatase Troponin I C-Reactive Protein Total Protein Albumin - Diagnostic Findings Chest x-ray: image reviewed Assessment and Plan Assessment: Right lower lobe spiculated nodule measuring 2.6 x 1.8 cm concerning for poss ible malignancy. This will likely need to be followed up with biopsy, and outpatient PET scan once ready for discharge. Gram-negative bacteremia and possible sepsis. Patient is hemodynamically stable, no signs of shock. Patient was started on Unasyn per infectious disease. Unclear source. Non-anion gap hyperchloremic metabolic acidosis Acute kidney injury, possibly related to NSAID use and dehydration Recent history of ORIF revision for a left hand fracture that occurred approximately one month ago Diabetes mellitus type 1, complicated with diabetic neuropathy. Possible mild component of DKA on arrival, which is improved Chronic obstructive pulmonary disease, in mild exacerbation. Chest x-ray on arrival showed no acute cardiopulmonary process. Negative for COVID-19. Elevated LFTs, mild, with undetermined significance Anemia, no obvious acute blood loss Benign essential hypertension Hypothyroidism Multiple sclerosis Restless leg syndrome History of cervical degenerative disc disease status post anterior cervical decompression with discectomy and fusion History of chronic nicotine dependence, quitting 6 months ago, with over [id number] history. plan: Patient's medications, labs, and imaging reviewed Patient's pulmonary nodule will need follow-up and likely biopsy, I will discuss this with Dr. Garcia in the morning Recommend follow-up outpatient PET scan Antibiotics per infectious disease receiving 0.45% sodium chloride at 75 ML's per hour Hold NSAIDs Start the patient on a combination of Symbicort inhaler and DuoNeb's. On room air. Alternating Tessalon Perles with Robitussin as antitussives Blood glucose control per admitting Pepcid for GI prophylaxis Patient appears nontoxic, and is hemodynamically stable at this time. We will continue to follow and make recommendations I have personally seen and examined the patient, performed the documentation and the assessment and plan as written. Number of minutes spent on the visit:20 This is a joint evaluation that was done along with a nurse practitioner. This patient is diabetic and the patient presented with sepsis with gram-negative bacillus/E. coli. Exact source is not clear. Incidentally, the patient was found to have a 2.6 cm right lower lobe mass which is highly suspicious for lung cancer. The patient is hemodynamically stable. The patient remains on IV Unasyn for now. We will proceed with a CAT scan of the chest with contrast now that the patient's renal function is stabilized. Will decide further biopsy of the later stage once more stable. ID regarding the gram-negative septicemia. This joint evaluation was done in more than 30 minutes Time with Patient: Greater than 30
[2023-06-28 05:58] LABS: Glucose,Whole Blood 214 mg/dL (70-110)
[2023-06-28] MEDS: AMPICILLIN-SULBACTAM 3 GM in SODIUM CHLORIDE 0.9% 100 ML IVPB SCH ×4 (07:04→22:51)
[2023-06-28] MEDS: SODIUM CHLORIDE 0.45% 1,000 ML IV SCH ×2 (07:04→18:30)
[2023-06-28] MEDS: INSULIN ASPART (NovoLOG) 100 UNIT/ML VIAL SQ SCH ×4 (07:08→20:38)
[2023-06-28] MEDS: INSULIN DETEMIR (LEVEMIR) 100 UNIT/ML SYR SQ SCH (07:08)
[2023-06-28] MEDS: LEVOTHYROXINE 75 MCG TAB PO SCH (07:08)
[2023-06-28] MEDS: SYMBICORT 160-4.5 MCG INHALER INHALATION SCH ×2 (09:36→20:48)
[2023-06-28] MEDS: VENLAFAXINE HCL ER 150 MG CAP PO SCH (09:48)
[2023-06-28] MEDS: DOCUSATE 100 MG CAP PO SCH (09:48)
[2023-06-28] MEDS: MONTELUKAST 10 MG TAB PO SCH (09:48)
[2023-06-28] MEDS: BENZONATATE 100 MG CAP PO SCH ×3 (09:48→20:37)
[2023-06-28] MEDS: HEPARIN SODIUM,PORCINE/PF 5,000 UNIT/0.5 ML SYRINGE SQ SCH ×3 (09:49→22:50)
[2023-06-28] MEDS: polyethylene glycoL 3350 17 GM POWD.PACK PO SCH (09:49)
[2023-06-28] MEDS: IPRATROPIUM-ALBUTEROL 3 ML NEB INHALATION SCH ×4 (09:56→20:48)
[2023-06-28 11:32] LABS: Glucose,Whole Blood 107 mg/dL (70-110)
[2023-06-28 11:50] LABS: Basophils % (A) 0 %; Eosinophils % (A) 0 %; HCT 25.6 % (34.0-46.0); HGB 8.7 gm/dL (11.4-16.0); Lymphocytes # (A) 1.5 k/uL (1.0-4.8); Lymphocytes % (A) 16 %; MCV 94.3 fL (80.0-100.0); Mean Platelet Volume 10.1; Monocytes # (A) 0.6 k/uL (0-1.0); Monocytes % (A) 6 %; Neutrophils # (A) 7.1 k/uL (1.3-7.7); Neutrophils % (A) 75 %; Platelet Count 219 k/uL (150-450); RBC 2.72 m/uL (3.80-5.40); RDW 13.8 % (11.5-15.5); WBC 9.5 k/uL (3.8-10.6)
[2023-06-28] MEDS: PSYLLIUM HUSK 100% 6 GM PACKET PO SCH (12:11)
[2023-06-28] MEDS: guaiFENesin SYRUP 100MG/5ML 200 MG/10 ML CUP PO PRN ×2 (12:11→20:37)
[2023-06-28 12:13] LABS: ALT 64 U/L (4-34); AST 52 U/L (14-36); African American GFR (CKD) 72 (>60 ml/min/1.73 sqM); Albumin 2.9 g/dL (3.5-5.0); Alkaline Phosphatase 240 U/L (38-126); Anion Gap 9 mmol/L; Blood Urea Nitrogen 12 mg/dL (7-17); Calcium 8.2 mg/dL (8.4-10.2); Carbon Dioxide 14 mmol/L (22-30); Chloride 113 mmol/L (98-107); Glucose 103 mg/dL (74-99); Magnesium 1.7 mg/dL (1.6-2.3); Non-African American GFR(CKD) 63 (>60 ml/min/1.73 sqM); Potassium 3.4 mmol/L (3.5-5.1); Sodium 136 mmol/L (137-145); Total Bilirubin 0.4 mg/dL (0.2-1.3); Total Protein 5.8 g/dL (6.3-8.2)
--- NOTE | 2023-06-28 12:28 | P.CONS ---
History of Present Illness - Reason for Consult Consult date: 06/26/23 Fever, possible sepsis Requesting physician: Martin Brown - Chief Complaint Cough and vomiting x one day - History of Present Illness Patient is a 58-year-old female with a past medical history significant for diabetes mellitus COPD hypertension who recently did have surgery on the left fifth finger by hand surgery presenting to the hospital yesterday afternoon for evaluation of nausea vomiting and did have elevated blood sugar patient is also complaining of cough which has been moderate intensity however the patient was not able to bring up any sputum patient denies any headache or URI symptoms denies any chest pain as mentioned only cough has been mostly dry in nature did have nausea vomiting but had no diarrhea denies having any urinary symptoms patient denies pain to the left fifth finger and the incision has been examined by the surgery with evidence of any infection patient on presentation to the hospital did have a fever of 102.3 F patient was not tachycardic however mildly hypotensive, not requiring any pressor support patient was not hypoxic or need for supplemental oxygen patient did have a normal white count with no left shift patient care has been mildly elevated liver enzymes mildly elevated urine was negative patient did have a negative COVID testing patient was admitted to the hospital infectious disease was consulted for fever and possible sepsis and management of antibiotic therapy Review of Systems Positive point and negatives has been mentioned in the HPI, complete review of systems was performed and all other systems are negative Past Medical History Past Medical History: COPD, Diabetes Mellitus, Eye Disorder, Hypertension, Musculoskeletal Disorder, Osteoarthritis (OA), Thyroid Disorder Additional Past Medical History / Comment(s): COPD, diabetes, GERD, osteoarthritis, seizure disorder secondary to hypoglycemia , hypothyroid, multiple sclerosis, diabetic peripheral neuropathy, optic neuritis, decreased vision in the eyes,; this problem, restless leg syndrome, colon polyps, anxiety depression. OA, efren in Rt ankle. Hx prob w/ cervical discs. Vaccinated for COVID 19 History of Any Multi-Drug Resistant Organisms: None Reported Past Surgical History: Adenoidectomy, Appendectomy, Tonsillectomy, Tubal Ligation Additional Past Surgical History / Comment(s): Laparoscopies. Pain procedures., cataract, neck fusion Past Anesthesia/Blood Transfusion Reactions: Motion Sickness Additional Past Anesthesia/Blood Transfusion Reaction / Comm: no blood transfusions Past Psychological History: Anxiety, Depression Smoking Status: Current some day smoker Past Alcohol Use History: Occasional Past Drug Use History: Marijuana - Past Family History Mother Family Medical History: Myocardial Infarction (PR) Additional Family Medical History / Comment(s): Mother at age 48 from coronary artery disease. Patient does not have any brothers and sisters. She has one adult son with no major medical problems. Medications and Allergies Home Medications Medication Instructions Recorded Confirmed Type Ibuprofen [Motrin] 800 mg PO TID PRN 08/08/20 06/25/23 History Levothyroxine Sodium [Synthroid] 125 mcg PO DAILY 03/10/22 06/25/23 History Gabapentin [Neurontin] 800 mg PO TID 07/28/22 06/25/23 History Insulin Glargine,Hum.rec.anlog 18 unit SQ DAILY 07/28/22 06/25/23 History [Lantus Solostar Pen] Montelukast [Singulair] 10 mg PO DAILY 07/28/22 06/25/23 History Venlafaxine HCl [Effexor XR] 150 mg PO DAILY 12/11/22 06/25/23 History cloNIDine HCL [Catapres] 0.3 mg PO BID 12/11/22 06/25/23 History Cyclobenzaprine [Flexeril] 10 mg PO TID PRN #60 tab 12/17/22 06/25/23 Rx Levothyroxine Sodium [Synthroid] 25 mcg PO DAILY 03/17/23 06/25/23 History Losartan/Hydrochlorothiazide 1 tab PO DAILY 03/17/23 06/25/23 History [Losartan-Hctz 100-25 mg Tab] rOPINIRole HCL [Requip] 0.5 mg PO HS 03/17/23 06/25/23 History Cephalexin [Keflex] 500 mg PO DIRECTED 06/25/23 06/25/23 History Insulin NPH Hum/Reg Insulin Hm 10 unit SQ AC-BID 06/25/23 06/25/23 History [humuLIN 70/30 Kwikpen] Allergies Allergy/AdvReac Type Severity Reaction Status Date / Time No Known Allergies Allergy Verified 06/25/23 16:06 Physical Exam Vitals: Vital Signs Temp Pulse Pulse Pulse Resp BP BP 06/26/23 09:00 98.0 F 63 16 88/55 06/26/23 04:00 98.1 F 69 16 100/50 06/26/23 02:00 63 16 06/26/23 00:42 98.4 F 63 16 78/45 06/25/23 20:41 99.5 F 64 18 97/40 06/25/23 20:20 99.5 F 64 16 67/39 06/25/23 20:00 99.1 F 06/25/23 19:09 100.7 F H 80 16 93/55 06/25/23 18:28 100.9 F H 84 16 110/66 06/25/23 17:40 101.6 F H 98 17 135/60 06/25/23 16:45 101.9 F H 102 H 17 153/67 06/25/23 16:00 102.3 F H 121 H 20 189/81 Pulse Ox 06/26/23 09:00 100 06/26/23 04:00 98 06/26/23 02:00 06/26/23 00:42 100 06/25/23 20:41 98 06/25/23 20:20 100 06/25/23 20:00 06/25/23 19:09 98 06/25/23 18:28 98 06/25/23 17:40 100 06/25/23 16:45 99 06/25/23 16:00 95 Intake and Output 06/25/23 06/26/23 06/26/23 22:59 06:59 14:59 Intake Total 350 237 Balance 350 237 Intake: Oral 350 237 Other: Voiding Method Toilet Toilet # Voids 0 1 Weight 69.2 kg GENERAL DESCRIPTION: Middle-aged female lying in bed, no distress. No tachypnea or accessory muscle of respiration use. HEENT: Shows Pallor , no scleral icterus. Oral mucous membrane is dry. No pharyngeal erythema or thrush NECK: Trachea central, no thyromegaly. LUNGS: Unlabored breathing. Clear to auscultation anteriorly. No wheeze or crackle. HEART: S1, S2, regular rate and rhythm. No loud murmur ABDOMEN: Soft, mild distention no significant tenderness or guarding EXTREMITIES: Left wrist is currently wrapped did have movement of all fingers SKIN: No rash, no masses palpable. NEUROLOGICAL: The patient is awake, alert, oriented x3, mood and affect normal. Results CBC & Chem 7: 06/28/23 11:00 06/28/23 11:00 Labs: Abnormal Lab Results - Last 24 Hours (Table) 06/25/23 06/25/23 06/25/23 Range/Units 15:51 16:23 16:23 RBC 3.27 L (3.80-5.40) m/uL Hgb 10.5 L (11.4-16.0) gm/dL Hct 31.4 L (34.0-46.0) % Lymphocytes # 0.3 L (1.0-4.8) k/uL Sodium 132 L (137-145) mmol/L Chloride (98-107) mmol/L Carbon Dioxide 11 L (22-30) mmol/L BUN 43 H (7-17) mg/dL Creatinine 1.58 H (0.52-1.04) mg/dL Glucose 372 H (74-99) mg/dL POC Glucose (mg/dL) 399 H (70-110) mg/dL Calcium (8.4-10.2) mg/dL AST (14-36) U/L ALT (4-34) U/L Alkaline Phosphatase 194 H (38-126) U/L Troponin I (0.000-0.034) ng/mL Total Protein (6.3-8.2) g/dL Albumin (3.5-5.0) g/dL 06/25/23 06/25/23 06/25/23 Range/Units 16:23 19:10 20:42 RBC (3.80-5.40) m/uL Hgb (11.4-16.0) gm/dL Hct (34.0-46.0) % Lymphocytes # (1.0-4.8) k/uL Sodium (137-145) mmol/L Chloride (98-107) mmol/L Carbon Dioxide (22-30) mmol/L BUN (7-17) mg/dL Creatinine (0.52-1.04) mg/dL Glucose (74-99) mg/dL POC Glucose (mg/dL) 136 H (70-110) mg/dL Calcium (8.4-10.2) mg/dL AST (14-36) U/L ALT (4-34) U/L Alkaline Phosphatase (38-126) U/L Troponin I 0.046 H* 0.143 H* (0.000-0.034) ng/mL Total Protein (6.3-8.2) g/dL Albumin (3.5-5.0) g/dL 06/26/23 06/26/23 06/26/23 Range/Units 06:04 09:09 09:09 RBC 2.54 L (3.80-5.40) m/uL Hgb 8.2 L D (11.4-16.0) gm/dL Hct 24.7 L (34.0-46.0) % Lymphocytes # 0.9 L (1.0-4.8) k/uL Sodium 135 L (137-145) mmol/L Chloride 115 H (98-107) mmol/L Carbon Dioxide 11 L (22-30) mmol/L BUN 37 H (7-17) mg/dL Creatinine 1.82 H (0.52-1.04) mg/dL Glucose 141 H (74-99) mg/dL POC Glucose (mg/dL) 140 H (70-110) mg/dL Calcium 7.4 L (8.4-10.2) mg/dL AST 97 H (14-36) U/L ALT 48 H (4-34) U/L Alkaline Phosphatase 175 H (38-126) U/L Troponin I (0.000-0.034) ng/mL Total Protein 5.1 L (6.3-8.2) g/dL Albumin 2.5 L (3.5-5.0) g/dL 06/26/23 Range/Units 11:41 RBC (3.80-5.40) m/uL Hgb (11.4-16.0) gm/dL Hct (34.0-46.0) % Lymphocytes # (1.0-4.8) k/uL Sodium (137-145) mmol/L Chloride (98-107) mmol/L Carbon Dioxide (22-30) mmol/L BUN (7-17) mg/dL Creatinine (0.52-1.04) mg/dL Glucose (74-99) mg/dL POC Glucose (mg/dL) 152 H (70-110) mg/dL Calcium (8.4-10.2) mg/dL AST (14-36) U/L ALT (4-34) U/L Alkaline Phosphatase (38-126) U/L Troponin I (0.000-0.034) ng/mL Total Protein (6.3-8.2) g/dL Albumin (3.5-5.0) g/dL Assessment and Plan (1) Sepsis Current Visit: Yes Status: Acute Code(s): A41.9 - SEPSIS, UNSPECIFIED ORGANISM SNOMED Code(s): 31847687 Plan: 1patient presented hospital with sepsis in this patient with fever along with nausea and vomiting patient was noticed to be mildly tender in the right upper quadrant area with a question of possible abdominal source. 2we will obtain a CT abdominal pelvis with oral contrast only as the patient did have mild elevated BUN/creatinine. 3empirically on Zosyn 3.375 g every 8 hours while waiting for the work-up to be completed We will follow on clinical condition and cultures to further adjust medication if needed Thank you for this consultation we will follow the patient along with you Dictation was produced using [employer] dictation software. please excuse any grammatical, word or spelling errors. Time with Patient: Greater than 30
--- NOTE | 2023-06-28 12:33 | P.PN ---
Subjective Progress Note Date: 06/27/23 Principal diagnosis: E. coli bacteremia Patient is a 58-year-old female with a past medical history significant for diabetes mellitus COPD hypertension who recently did have surgery on the left fifth finger by hand surgery presenting to the hospital for evaluation of nausea vomiting and did have elevated blood sugar, patient did have a CT abdominal pelvis that was negative for acute process however the patient did have a positive blood culture with E. coli. On today's evaluation that is 06/27/2023, the patient remains to be febrile patient is breathing comfortably on room air, has been complaining of some dry hacking cough, no sputum production, the patient denies any nausea no vomiting no abdominal pain or diarrhea Patient did have a white count of 7.6, creatinine is 1.42, urine checked 2 negative Objective - Vital Signs Vital signs: Vital Signs Temp 98.0 F 06/27/23 09:30 Pulse 60 06/27/23 09:30 Resp 16 06/27/23 09:30 BP 128/60 06/27/23 09:30 Pulse Ox 99 06/27/23 09:30 FiO2 Intake & Output 06/26/23 06/27/23 06/27/23 18:59 06:59 18:59 Intake Total 597 Balance 597 Intake: Oral 597 Other: Voiding Method Toilet # Voids 1 - Exam GENERAL DESCRIPTION: A middle-aged female lying in bed in no distress RESPIRATORY SYSTEM: Unlabored breathing , decreased breath sounds at bases HEART: S1 S2 regular rate and rhythm , ABDOMEN: Soft , no tenderness EXTREMITIES: No edema feet - Labs CBC & Chem 7: 06/28/23 11:00 06/28/23 11:00 Labs: Abnormal Lab Results - Last 24 Hours (Table) 06/26/23 06/26/23 06/26/23 Range/Units 09:09 11:41 19:56 RBC (3.80-5.40) m/uL Hgb (11.4-16.0) gm/dL Hct (34.0-46.0) % Sodium (137-145) mmol/L Chloride (98-107) mmol/L Carbon Dioxide (22-30) mmol/L BUN (7-17) mg/dL Creatinine (0.52-1.04) mg/dL Glucose (74-99) mg/dL POC Glucose (mg/dL) 152 H 130 H (70-110) mg/dL Hemoglobin A1c 8.2 H (<=6.0) % Calcium (8.4-10.2) mg/dL AST (14-36) U/L ALT (4-34) U/L Alkaline Phosphatase (38-126) U/L C-Reactive Protein (<1.0) mg/dL Total Protein (6.3-8.2) g/dL Albumin (3.5-5.0) g/dL 06/27/23 06/27/23 06/27/23 Range/Units 06:05 07:26 07:26 RBC 2.66 L (3.80-5.40) m/uL Hgb 8.2 L (11.4-16.0) gm/dL Hct 25.9 L (34.0-46.0) % Sodium 134 L (137-145) mmol/L Chloride 113 H (98-107) mmol/L Carbon Dioxide 11 L (22-30) mmol/L BUN 24 H (7-17) mg/dL Creatinine 1.42 H (0.52-1.04) mg/dL Glucose 129 H (74-99) mg/dL POC Glucose (mg/dL) 133 H (70-110) mg/dL Hemoglobin A1c (<=6.0) % Calcium 8.1 L (8.4-10.2) mg/dL AST 138 H (14-36) U/L ALT 95 H (4-34) U/L Alkaline Phosphatase 243 H (38-126) U/L C-Reactive Protein 7.3 H (<1.0) mg/dL Total Protein 5.7 L (6.3-8.2) g/dL Albumin 2.8 L (3.5-5.0) g/dL Microbiology - Last 24 Hours (Table) 06/25/23 16:23 Blood Culture Gram Stain - Preliminary Blood Assessment and Plan (1) Gram-negative bacteremia Current Visit: Yes Status: Acute Code(s): R78.81 - BACTEREMIA SNOMED Code(s): 119634909193 (2) Fever Current Visit: Yes Status: Acute Code(s): R50.9 - FEVER, UNSPECIFIED SNOMED Code(s): 485343486 Plan: 1patient presented hospital with sepsis in this patient with fever along with nausea and vomiting patient was noticed to be mildly tender in the right upper quadrant area with a question of possible abdominal source, patient did have CT abdominal pelvis with oral contrast only as the patient did have mild elevated BUN/creatinine And did not show any acute abnormality patient did have a UA 2 that has been negative 2patient blood cultures with E. coli that is a sensitive pathogen, blood culture repeated upcoming Femi 3-patient to continue with Unasyn and monitor clinical course closely Dictation was produced using [employer] dictation software. please excuse any grammatical, word or spelling errors. Time with Patient: Less than 30
--- NOTE | 2023-06-28 12:35 | P.PN ---
Subjective Progress Note Date: 06/28/23 Principal diagnosis: E. coli bacteremia Patient is a 58-year-old female with a past medical history significant for diabetes mellitus COPD hypertension who recently did have surgery on the left fifth finger by hand surgery presenting to the hospital for evaluation of nausea vomiting and did have elevated blood sugar, patient did have a CT abdominal pelvis that was negative for acute process however the patient did have a positive blood culture with E. coli. On today's evaluation that is 06/28/2023, the patient continues to be afebrile patient is breathing comfortably on room air, the patient has been complaining of some dry hacking cough, the patient denies any nausea no vomiting no abdominal pain or diarrhea Patient did have a white count of 9.5, creatinine has normalized to 0.99, UA checked 2 negative Objective - Vital Signs Vital signs: Vital Signs Temp 98.5 F 06/28/23 08:10 Pulse 82 06/28/23 08:10 Resp 16 06/28/23 08:10 BP 147/69 06/28/23 08:10 Pulse Ox 98 06/28/23 09:44 FiO2 Intake & Output 06/27/23 06/28/23 06/28/23 18:59 06:59 18:59 Intake Total 240 Output Total 300 Balance -60 Weight 72.1 kg Intake: Oral 240 Output: Urine 300 Other: Voiding Method Toilet Toilet # Voids 2 - Exam GENERAL DESCRIPTION: A middle-aged female lying in bed in no distress RESPIRATORY SYSTEM: Unlabored breathing , decreased breath sounds at bases HEART: S1 S2 regular rate and rhythm , ABDOMEN: Soft , no tenderness EXTREMITIES: No edema feet - Labs CBC & Chem 7: 06/28/23 11:00 06/28/23 11:00 Labs: Abnormal Lab Results - Last 24 Hours (Table) 06/27/23 06/27/23 06/28/23 Range/Units 16:29 20:08 05:56 RBC (3.80-5.40) m/uL Hgb (11.4-16.0) gm/dL Hct (34.0-46.0) % Sodium (137-145) mmol/L Potassium (3.5-5.1) mmol/L Chloride (98-107) mmol/L Carbon Dioxide (22-30) mmol/L Glucose (74-99) mg/dL POC Glucose (mg/dL) 168 H 151 H 214 H (70-110) mg/dL Calcium (8.4-10.2) mg/dL AST (14-36) U/L ALT (4-34) U/L Alkaline Phosphatase (38-126) U/L Total Protein (6.3-8.2) g/dL Albumin (3.5-5.0) g/dL 06/28/23 06/28/23 Range/Units 11:00 11:00 RBC 2.72 L (3.80-5.40) m/uL Hgb 8.7 L (11.4-16.0) gm/dL Hct 25.6 L (34.0-46.0) % Sodium 136 L (137-145) mmol/L Potassium 3.4 L (3.5-5.1) mmol/L Chloride 113 H (98-107) mmol/L Carbon Dioxide 14 L (22-30) mmol/L Glucose 103 H (74-99) mg/dL POC Glucose (mg/dL) (70-110) mg/dL Calcium 8.2 L (8.4-10.2) mg/dL AST 52 H (14-36) U/L ALT 64 H (4-34) U/L Alkaline Phosphatase 240 H (38-126) U/L Total Protein 5.8 L (6.3-8.2) g/dL Albumin 2.9 L (3.5-5.0) g/dL Microbiology - Last 24 Hours (Table) 06/25/23 16:23 Blood Culture Gram Stain - Preliminary Blood Blood Culture - Preliminary Gram Neg Bacilli 06/25/23 16:23 Blood Culture Gram Stain - Preliminary Blood Blood Culture - Preliminary Gram Neg Bacilli Assessment and Plan (1) Gram-negative bacteremia Current Visit: Yes Status: Acute Code(s): R78.81 - BACTEREMIA SNOMED Code(s): 665768215058 (2) Fever Current Visit: Yes Status: Acute Code(s): R50.9 - FEVER, UNSPECIFIED SNOMED Code(s): 661007286 Plan: 1patient presented hospital with sepsis in this patient with fever along with nausea and vomiting patient was noticed to be mildly tender in the right upper quadrant area with a question of possible abdominal source, patient did have CT abdominal pelvis with oral contrast only as the patient did have mild elevated BUN/creatinine And did not show any acute abnormality patient did have a UA 2 that has been negative 2patient blood cultures with E. coli that is a sensitive pathogen, blood culture has been repeated and currently pending 3-patient to continue with Unasyn while waiting for repeat cultures to be finalize Dictation was produced using [email or web address] dictation software. please excuse any grammatical, word or spelling errors. Time with Patient: Less than 30
[2023-06-28] MEDS ORDERED: RX INFO: IV CONTRAST WAS GIVEN 1 EACH MISC MISCELLANE PRN (12:50)
--- NOTE | 2023-06-28 14:39 | P.PN ---
Progress Note - Text Progress Note Date: 06/28/23 This is a 58-year-old patient who follows with Dr. Pino. Chronic stable medical conditions include GERD, osteoarthritis, seizure disorder, hypothyroid, MS, diabetic peripheral neuropathy, optic neuritis, decreased vision in the eyes, restless leg syndrome, anxiety depression. . came in with compensative hyperglycemia, patient was also comparing of fever chills. Patient was complaining of nausea vomiting as well. Patient does take Motrin as outpatient for pain in the left hand for which patient underwent outpatient surgery for fracture. Patient was sitting Keflex at home. Patient is found to be febrile. Chest x-ray did not show any pneumonia. Urinalysis is essentially within normal limits. Patient has mildly elevated troponin of 0.143 and plateaued at that level. Patient was later doesn't have any fever chills patient was started on Zosyn. Patient was started on IV fluids leading to hyperchloremia. She was started on long-acting insulin female insulin sliding scale with which blood sugars are well controlled at this time. Patient was started on Pepcid as well as IV. Patient baseline creatinine is around 1 present creatinine is 1.8. 06/27/2023 Patient evaluated today sitting up in the bed, no acute complaints overnight. Patient remains afebrile the last [address] completed shows no acute abdominopelvic process within limitations of a noncontrast exam there is development of a right lower lobe spiculated 2.6 x 1.8 centimeter nodule that raises concern for possibly malignancy further evaluation with PET CT is recommended. Blood culture showing gram-negative bacilli and will be repeated infectious diseases follow patient remains on IV antibiotics in the form of IV Unasyn. White count is normalized, sodium 134, potassium of 4.5, BUN 24, creatinine 1.42, liver enzymes are elevated and CRP is mildly elevated. She continues on half-normal saline at 75 mls/hr. Orthopedics has evaluated patient and her recent left hand ORIF recommending to continue with current dressing changes. Patient complaining of some cough today and is offered Tessalon Perles and Robitussin. Glucose has improved. 06/28/2023: I assumed care of the patient today. Patient has significant cough. No sputum. Denies any fever and chills. Decreased appetite. Tired. Is admitted with sepsis. No obvious source of infection has been found. Blood cultures were positive for E. coli. On IV Unasyn. Active Medications Albuterol/Ipratropium (Ipratropium-Albuterol 3 Ml Neb) 3 ml INHALATION RT-QID [facility] Last Admin: 06/28/23 13:13 Dose: 3 ml Albuterol/Ipratropium (Ipratropium-Albuterol 3 Ml Neb) 3 ml INHALATION RT-QID PRN PRN Reason: Shortness Of Breath Or Wheezing Benzocaine/Menthol (Benzocaine/Menthol Lozeng 1 Each Lozenge) 1 each MUCOUS MEM Q4HR PRN PRN Reason: Cough Last Admin: 06/27/23 20:59 Dose: 1 each Benzonatate (Benzonatate 100 Mg Cap) 100 mg PO TID [facility] Last Admin: 06/28/23 09:48 Dose: 100 mg Budesonide/Formoterol Fumarate (Symbicort 160-4.5 Mcg Inhaler) 2 puff INHALATION RT-BID [facility] Last Admin: 06/28/23 09:36 Dose: 2 puff Dextrose/Water (Dextrose 50% Syringe 50 Ml) 25 ml IVP PER PROTOCOL PRN; Protocol PRN Reason: Hypoglycemia Dextrose/Water (Dextrose 50% Syringe 50 Ml) 50 ml IVP PER PROTOCOL PRN; Protocol PRN Reason: Hypoglycemia Famotidine (Famotidine 20 Mg Tab) 20 mg PO HS [facility] Last Admin: 06/27/23 20:59 Dose: 20 mg Guaifenesin (Guaifenesin Syrup 100mg/5ml 200 Mg/10 Ml Cup) 200 mg PO Q6HR PRN PRN Reason: Cough Last Admin: 06/28/23 12:11 Dose: 200 mg Heparin Sodium (Porcine) (Heparin Sodium,Porcine/Pf 5,000 Unit/0.5 Ml Syringe) 5,000 unit SQ Q8HR [facility] Last Admin: 06/28/23 09:49 Dose: 5,000 unit Sodium Chloride (Saline 0.45%) 1,000 mls @ 75 mls/hr IV .[id number] [facility] Last Admin: 06/28/23 07:04 Dose: 75 mls/hr Ampicillin Sodium/Sulbactam (Sodium 3 gm/ Sodium Chloride) 100 mls @ 200 mls/hr IVPB Q6H [facility]; Protocol Last Admin: 06/28/23 10:50 Dose: 200 mls/hr Insulin Aspart (Insulin Aspart (Novolog) 100 Unit/Ml Vial) 0 unit SQ ACHS [facility]; Protocol Last Admin: 06/28/23 12:07 Dose: Not Given Insulin Detemir (Insulin Detemir (Levemir) 100 Unit/Ml Syr) 18 unit SQ DAILY@0700 [facility] Last Admin: 06/28/23 07:08 Dose: 18 unit Levothyroxine Sodium (Levothyroxine 75 Mcg Tab) 150 mcg PO DAILY@0630 [facility] Last Admin: 06/28/23 07:08 Dose: 150 mcg Miscellaneous Information (Rx Info: Iv Contrast Was Given 1 Each Misc) 1 each MISCELLANE DAILY PRN PRN Reason: Per Protocol Stop: 06/30/23 12:50 Montelukast Sodium (Montelukast 10 Mg Tab) 10 mg PO DAILY [facility] Last Admin: 06/28/23 09:48 Dose: 10 mg Naloxone HCl (Naloxone 0.4 Mg/Ml 1 Ml Vial) 0.2 mg IV Q2M PRN PRN Reason: Opioid Reversal Ondansetron HCl (Ondansetron 4 Mg/2 Ml Vial) 4 mg IVP Q8HR PRN PRN Reason: Nausea And Vomiting Last Admin: 06/27/23 21:05 Dose: 4 mg Psyllium Hydrophilic Mucilloid (Psyllium Husk 100% 6 Gm Packet) 6 gm PO DAILY [facility] Last Admin: 06/28/23 12:11 Dose: 6 gm Ropinirole HCl (Ropinirole Hcl 0.25 Mg Tab) 0.5 mg PO HS [facility] Last Admin: 06/27/23 20:59 Dose: 0.5 mg Tramadol HCl (Tramadol 50 Mg Tab) 50 mg PO QID PRN PRN Reason: Pain Last Admin: 06/27/23 16:26 Dose: 50 mg Venlafaxine HCl (Venlafaxine Hcl Er 150 Mg Cap) 150 mg PO DAILY [facility] Last Admin: 06/28/23 09:48 Dose: 150 mg Past medical history to include: COPD, diabetes, GERD, osteoarthritis, seizure disorder, hypothyroid, multiple sclerosis, diabetic peripheral neuropathy, optic neuritis, decreased vision in the eyes,;, restless leg syndrome, colon polyps, anxiety depression Social history: Patient started smoking in 1978. Half a pack a day. More so in the past. Stop smoking May 2022. She was drinking heavy alcohol up to about 2016. Has a roommate Aubree. Occasionally does marijuana. Does use a cane Family history: Mother of heart attack. Physical examination: VITAL SIGNS: 98.4, 91, 16, 146/76, 98% room air GENERAL: Sitting up in bed, coughing EYES: Pupils equal. Conjunctiva normal. HEENT: External appearance of nose and ears normal, oral cavity grossly normal. NECK: JVD not raised; masses not palpable. HEART: First and second heart sounds are normal; no edema. LUNGS: Respiratory rate increased; diminished breath sounds ABDOMEN: Soft, nontender, liver spleen not palpable, no masses palpable. PSYCH: [Alert and oriented x3; mood and affect anxious INVESTIGATIONS, reviewed in the clinical context: June 28: White count 9.5 hemoglobin 8.7 platelets 219 sodium 136 potassium 3.4 creatinine 0.99 AST 52 ALT 64 Troponin I 0.046, 0.143 Serum acetone positive COVID-19: Not detected CT abdomen pelvis: Right lower lobe spiculated 2.6 x 1.8 cm nodule. June 25: Blood culture: E. coli Assessment and plan: -Sepsis, source unclear. Blood cultures positive for E. coli. IV Unasyn. CT abdomen-unremarkable. Repeat blood culture from June 27 pending. -Diabetic ketoacidosis: Corrected -Acute intact COPD exacerbation in a X smoker: DuoNeb 4 times a day. Symbicort -Hyponatremia from decreased food intake.: Mild Encourage oral intake. -Diabetes mellitus type 2, chronically on insulin. Uncontrolled with hyperglycemia Levemir 18 -Diabetic peripheral neuropathy Neurontin -Hypothyroid Synthroid 150 g -GERD Pepcid -Restless leg syndrome requip 0.5 mg every daily at bedtime -Anxiety depression Effexor XR
[2023-06-28] MEDS ORDERED: POTASSIUM CHLORIDE ER 20 MEQ TAB.ER PO STA (15:41)
--- NOTE | 2023-06-28 15:43 | CT ---
EXAMINATION TYPE: CT chest w con DATE OF EXAM: 06/28/2023 COMPARISON: None HISTORY: Lung mass CT DLP: 300.8 mGycm, Automated exposure control for dose reduction was used. CONTRAST: Performed injected with 100 mL of Isovue 300. TECHNIQUE: Axial images were obtained at 5 mm thick sections. Reconstructed images are reviewed on [employer] computer in the coronal plane. FINDINGS: Portion of the thyroid visualized is normal. There is a faint density within the anterior left upper lung field. This measures 0.8 cm. Series 205 image 18. There is a small 0.3 cm density in the periphery of the anterior right midlung. Series 205 image 29. There is a cavitary lesion with a nondependent punctate amount of air within the hypodense center of a 2.0 x 2.2 cm mass in the posterior right lower lobe. Series 205 image 38. Neoplasm should be consid ered. Infection would be within the differential. This has a 0.9 cm wide tail extending towards the posterior medial right lung base. No enlarged mediastinal or hilar adenopathy is evident. The ascending aorta diameter at the level o f the main pulmonary artery is 3.2 cm. The main pulmonary artery diameter at the bifurcation is 2.8 cm. Moderate coronary artery calcification is present. Limited CT sections are obtained through the upper abdomen. There is mild thickening of the right adr enal gland 1.1 cm. This appears low density measuring approximately 10 Hounsfield units. IMPRESSIONS: 1. Cavitary lesion with some minimal air in the right lower lung field measuring 2 cm. Infection and neoplasm are within the differential. 2. There are some additional small lung densities described above within the bilateral lung berry.
[2023-06-28] MEDS: GABAPENTIN 400 MG CAP PO SCH ×2 (16:19→20:37)
[2023-06-28 16:42] LABS: Glucose,Whole Blood 93 mg/dL (70-110)
[2023-06-28 20:21] LABS: Glucose,Whole Blood 193 mg/dL (70-110)
[2023-06-28] MEDS: FAMOTIDINE 20 MG TAB PO SCH (20:38)
[2023-06-28] MEDS: traMADol 50 MG TAB PO PRN (20:43)
[2023-06-29] MEDS: AMPICILLIN-SULBACTAM 3 GM in SODIUM CHLORIDE 0.9% 100 ML IVPB SCH ×2 (04:24→12:22)
[2023-06-29 05:50] LABS: Glucose,Whole Blood 293 mg/dL (70-110)
[2023-06-29] MEDS: LEVOTHYROXINE 75 MCG TAB PO SCH (05:56)
[2023-06-29] MEDS: INSULIN ASPART (NovoLOG) 100 UNIT/ML VIAL SQ SCH ×4 (05:59→21:39)
[2023-06-29] MEDS: INSULIN DETEMIR (LEVEMIR) 100 UNIT/ML SYR SQ SCH (05:59)
[2023-06-29] MEDS: SODIUM CHLORIDE 0.45% 1,000 ML IV SCH ×2 (06:30→22:16)
[2023-06-29] MEDS: SYMBICORT 160-4.5 MCG INHALER INHALATION SCH ×2 (08:16→19:40)
[2023-06-29] MEDS: IPRATROPIUM-ALBUTEROL 3 ML NEB INHALATION SCH ×4 (08:18→19:40)
[2023-06-29] MEDS: MONTELUKAST 10 MG TAB PO SCH (09:33)
[2023-06-29] MEDS: BENZONATATE 100 MG CAP PO SCH ×3 (09:33→20:05)
[2023-06-29] MEDS: HEPARIN SODIUM,PORCINE/PF 5,000 UNIT/0.5 ML SYRINGE SQ SCH ×3 (09:33→23:39)
[2023-06-29] MEDS: PSYLLIUM HUSK 100% 6 GM PACKET PO SCH (09:33)
[2023-06-29] MEDS: GABAPENTIN 400 MG CAP PO SCH ×3 (09:33→20:05)
[2023-06-29] MEDS: VENLAFAXINE HCL ER 150 MG CAP PO SCH (09:33)
[2023-06-29 11:22] LABS: Glucose,Whole Blood 217 mg/dL (70-110)
--- NOTE | 2023-06-29 11:42 | P.PN ---
Subjective Progress Note Date: 06/29/23 I am seeing this patient in consultation today 06/28/2023 on the cardiac step wn unit for a suspicious right lower lobe pulmonary nodule that was incidentally found on abdominal and pelvis CT. Patient is a 58-year-old white female with past medical history significant for being an ex-smoker, quitting 6 months ago and having over a [id number] history, COPD, diabetes mellitus, diabetic neuropathy, hypertension, hypothyroidism. Her primary care provider is Dr. Ryan Isbell. 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 Patient recently had a revised ORIF of the left hand for a fracture that occurred approximately one month ago. She was having episodes of nausea and vomiting, fever, accompanied with hyperglycemia for 24 hours preceding her arrival to the emergency room on June 25. Possibly had a mild component of DKA on arrival, which has improved. Blood cultures are also positive for gram-negative bacilli, and the patient is covered on Unasyn per infectious disease. No obvious source has been identified yet. Patient's nausea and vomiting has subsided. A nonenhanced abdominal and pelvis CT done yesterday did not show any acute intra-abdominal process. It did show a right lower lobe spiculated 2.6 x 1.8 cm nodule concerning for possible malignancy. This will have to be worked up once the patient's bacteremia has resolved. I did not see any prior CTs for comparison. Patient is currently sitting up in bed, on room air, in no acute distress. She does report mild chronic shortness of breath especially on exertion. She does have an intermittent dry cough and reports chest tightness. Denies any hemoptysis or chest pain. Most recent CBC shows a WBC count of 7.6, hemoglobin 8.2, hematocrit 25.9, and platelets 195. Most recent BMP from yesterday shows a sodium 134, potassium 4.4, chloride 113, serum bicarb 11, anion gap 10, BUN 24, creatinine 1.42, glucose 129. Half-normal saline is infusing at 75 mL per hour. Patient does have a component of acute kidney injury possibly related to NSAID use postoperatively. Urinalysis was not concerning for UTI. LFTs are mildly elevated. Negative for COVID-19. T-max was 102.3F on arrival, currently afebrile. Vital signs are stable. On today's evaluation of 06/29/2023, the patient is being seen for a follow-up. She is clinically stable and hemodynamically stable and she is afebrile and the patient continues to be on IV antibiotics regarding her gram-negative sepsis with E. coli. The patient remains on IV Unasyn. CAT scan of the chest and he went was completed, the patient's identified to have a cavitary lesion in the right lower lobe measuring 2 cm. Possibility of an underlying malignancy/primary bronchogenic lung cancer cannot be ruled out. There is some additional smaller nodules bilaterally. No mediastinal lymphadenopathy. He states he worked up on outpatient basis including a PET/CT and subsequently a biopsy if needed. On a separate note, consider the source of infection may be the arm. The patient has undergone an ORIF of the left arm/hand fracture that occurred approximately a month ago. I'm going to consult orthopedic surgery to evaluate the arm and if there is anyone underlying Objective - Vital Signs Vital signs: Vital Signs Temp 98.7 F 06/29/23 04:00 Pulse 82 06/29/23 04:00 Resp 16 06/29/23 04:00 BP 144/65 06/29/23 04:00 Pulse Ox 96 06/29/23 08:20 FiO2 21 06/29/23 08:20 Intake & Output 06/28/23 06/29/23 06/29/23 18:59 06:59 18:59 Intake Total 600 Balance 600 Intake: Intake, IV Titration 600 Amount Sodium Chloride 0.45% 1, 600 000 ml @ 75 mls/hr IV . [id number] [facility] Rx#:[id number] Other: Voiding Method Toilet # Voids 1 - Exam GENERAL EXAM: Alert,58-year-old white female appearing stated age , comfortable in no apparent distress. HEAD: Normocephalic and atraumatic EYES: Normal reaction of pupils, equal size. NOSE: Clear with pink turbinates. THROAT: No erythema or exudates. NECK: No masses, no JVD. CHEST: No chest wall deformity. LUNGS: Equal air entry with very mild end expiratory wheezes heard posteriorly throughout. No crackles, wheeze, rhonchi or focal dullness. On room air. No conversational dyspnea or accessory muscle use.. CVS: S1 and S2 normal with no audible murmur, regular rhythm. No extra heart sounds ABDOMEN: No hepatosplenomegaly, active bowel sounds, no guarding or rigidity. SPINE: No scoliosis or deformity SKIN: No rashes CENTRAL NERVOUS SYSTEM: No focal deficits, tone is normal in all 4 extremities. EXTREMITIES: left hand and arm are in a splint. There is no peripheral edema, clubbing, or cyanosis. Peripheral pulses are intact. - Labs CBC & Chem 7: 06/28/23 11:00 06/28/23 11:00 Labs: Abnormal Lab Results - Last 24 Hours (Table) 06/28/23 06/28/23 06/28/23 Range/Units 11:00 11:00 20:20 RBC 2.72 L (3.80-5.40) m/uL Hgb 8.7 L (11.4-16.0) gm/dL Hct 25.6 L (34.0-46.0) % Sodium 136 L (137-145) mmol/L Potassium 3.4 L (3.5-5.1) mmol/L Chloride 113 H (98-107) mmol/L Carbon Dioxide 14 L (22-30) mmol/L Glucose 103 H (74-99) mg/dL POC Glucose (mg/dL) 193 H (70-110) mg/dL Calcium 8.2 L (8.4-10.2) mg/dL AST 52 H (14-36) U/L ALT 64 H (4-34) U/L Alkaline Phosphatase 240 H (38-126) U/L Total Protein 5.8 L (6.3-8.2) g/dL Albumin 2.9 L (3.5-5.0) g/dL 06/29/23 Range/Units 05:48 RBC (3.80-5.40) m/uL Hgb (11.4-16.0) gm/dL Hct (34.0-46.0) % Sodium (137-145) mmol/L Potassium (3.5-5.1) mmol/L Chloride (98-107) mmol/L Carbon Dioxide (22-30) mmol/L Glucose (74-99) mg/dL POC Glucose (mg/dL) 293 H (70-110) mg/dL Calcium (8.4-10.2) mg/dL AST (14-36) U/L ALT (4-34) U/L Alkaline Phosphatase (38-126) U/L Total Protein (6.3-8.2) g/dL Albumin (3.5-5.0) g/dL Microbiology - Last 24 Hours (Table) 06/27/23 07:26 Blood Culture - Preliminary Blood 06/25/23 16:23 Blood Culture Gram Stain - Final Blood Blood Culture - Final Escherichia coli 06/25/23 16:23 Blood Culture Gram Stain - Final Blood Blood Culture - Final Escherichia coli Assessment and Plan Assessment: Right lower lobe spiculated nodule measuring 2.6 x 1.8 cm concerning for possible malignancy. This will likely need to be followed up with biopsy, and outpatient PET scan once ready for discharge. The CAT scan of the chest also showed presence of a right lower lobe nodule with some limited cavitation. No mediastinal lymphadenopathy. Gram-negative bacteremia and possible sepsis. Patient is hemodynamically stable, no signs of shock. Patient was started on Unasyn per infectious disease. Unclear source. Non-anion gap hyperchloremic metabolic acidosis Acute kidney injury, possibly related to NSAID use and dehydration Recent history of ORIF revision for a left hand fracture that occurred approximately one month ago Diabetes mellitus type 1, complicated with diabetic neuropathy. Possible mild component of DKA on arrival, which is improved Chronic obstructive pulmonary disease, in mild exacerbation. Chest x-ray on arrival showed no acute cardiopulmonary process. Negative for COVID-19. Elevated LFTs, mild, with undetermined significance Anemia, no obvious acute blood loss Benign essential hypertension Hypothyroidism Multiple sclerosis Restless leg syndrome History of cervical degenerative disc disease status post anterior cervical decompression with discectomy and fusion History of chronic nicotine dependence, quitting 6 months ago, with over [id number] history. plan: Orthopedic surgery to evaluate the left upper extremity and evaluated there is any underlying wound which could be potentially the source of infection Continue IV Unasyn Reviewed the CAT scan of the chest Continue Symbicort inhaler and DuoNeb's. On room air. Alternating Tessalon Perles with Robitussin as antitussives Outpatient PET/CT once the condition is more stable and possibly a biopsy of the right lower lobe nodule/mass if needed.
--- NOTE | 2023-06-29 13:54 | P.PN ---
Subjective Progress Note Date: 06/29/23 Principal diagnosis: Status post closed reduction with perc pin of the left small finger This is a 58 year-old female post closed reduction with percutaneous pinning revision left small finger on 06/22/[address] Valentine. The patient was evaluated at the bedside today. The patient denies nausea, vomiting, abdominal pain, chest pain, or shortness of breath this morning. She states her pain is controlled at this time. There was a concern for infection in the left hand and orthopedics was reconsulted. Objective - Vital Signs Vital signs: Vital Signs Temp 98.1 F 06/29/23 08:40 Pulse 68 06/29/23 11:55 Resp 16 06/29/23 08:40 BP 147/72 06/29/23 08:40 Pulse Ox 98 06/29/23 08:40 FiO2 21 06/29/23 08:20 Intake & Output 06/28/23 06/29/23 06/29/23 18:59 06:59 18:59 Intake Total 600 240 Balance 600 240 Intake: Intake, IV Titration 600 Amount Sodium Chloride 0.45% 1, 600 000 ml @ 75 mls/hr IV . [id number] [facility] Rx#:[id number] Oral 240 Other: Voiding Method Toilet # Voids 1 1 - Exam The patient is a 58 y/o female in acute distress. She is alert and oriented x3. The splint was removed. Two pins in place. No signs or symptoms have pin tract infection or migration. Swelling is also as expected and is not excessive. Minimal pain to the fracture site. Neurovascular exam is normal. - Labs CBC & Chem 7: 06/28/23 11:00 06/28/23 11:00 Labs: Abnormal Lab Results - Last 24 Hours (Table) 06/28/23 06/29/23 06/29/23 Range/Units 20:20 05:48 11:20 POC Glucose (mg/dL) 193 H 293 H 217 H (70-110) mg/dL Microbiology - Last 24 Hours (Table) 06/27/23 07:26 Blood Culture - Preliminary Blood 06/25/23 16:23 Blood Culture Gram Stain - Final Blood Blood Culture - Final Escherichia coli 06/25/23 16:23 Blood Culture Gram Stain - Final Blood Blood Culture - Final Escherichia coli Assessment and Plan (1) Closed fracture of proximal phalanx of left little finger Current Visit: Yes Status: Acute Code(s): S62.617A - DISP FX OF PROXIMAL PHALANX OF LEFT LITTLE FINGER, INIT SNOMED Code(s): 217925737 (2) Left hand pain Current Visit: Yes Status: Acute Code(s): M79.642 - PAIN IN LEFT HAND SNOMED Code(s): 73144613 Plan: The clinical findings were discussed with the patient. The case was discussed with Dr. Valentine. A new splint was applied today. She will return to the office either this Wednesday or Wednesday to be placed in a cast. No signs of infection are noted in the left hand at this time. She will follow up in our office upon discharge from the hospital.
--- NOTE | 2023-06-29 14:46 | P.PN ---
Subjective Progress Note Date: 06/29/23 Principal diagnosis: E. coli bacteremia Patient is a 58-year-old female with a past medical history significant for diabetes mellitus COPD hypertension who recently did have surgery on the left fifth finger by hand surgery presenting to the hospital for evaluation of nausea vomiting and did have elevated blood sugar, patient did have a CT abdominal pelvis that was negative for acute process however the patient did have a positive blood culture with E. coli. On today's evaluation that is 06/29/2023, the patient remains to be afebrile patient is breathing comfortably on room air, the patient cough is decreased intensity and remains to be dry in nature, the patient denies any nausea no vomiting no abdominal pain or diarrhea Patient did have a white count of 9.5, creatinine has normalized to 0.99 as of 06/28/2023, no blood work was done today, UA checked 2 negative Objective - Vital Signs Vital signs: Vital Signs Temp 98.2 F 06/29/23 12:00 Pulse 76 06/29/23 12:00 Resp 16 06/29/23 12:00 BP 147/68 06/29/23 12:00 Pulse Ox 98 06/29/23 12:00 FiO2 21 06/29/23 08:20 Intake & Output 06/28/23 06/29/23 06/29/23 18:59 06:59 18:59 Intake Total 600 240 Balance 600 240 Intake: Intake, IV Titration 600 Amount Sodium Chloride 0.45% 1, 600 000 ml @ 75 mls/hr IV . [id number] [facility] Rx#:[id number] Oral 240 Other: Voiding Method Toilet # Voids 1 1 - Exam GENERAL DESCRIPTION: A middle-aged female lying in bed in no distress RESPIRATORY SYSTEM: Unlabored breathing , decreased breath sounds at bases HEART: S1 S2 regular rate and rhythm , ABDOMEN: Soft , no tenderness EXTREMITIES: No edema feet - Labs CBC & Chem 7: 06/28/23 11:00 06/28/23 11:00 Labs: Abnormal Lab Results - Last 24 Hours (Table) 06/28/23 06/29/23 06/29/23 Range/Units 20:20 05:48 11:20 POC Glucose (mg/dL) 193 H 293 H 217 H (70-110) mg/dL Microbiology - Last 24 Hours (Table) 06/27/23 07:26 Blood Culture - Preliminary Blood 06/25/23 16:23 Blood Culture Gram Stain - Final Blood Blood Culture - Final Escherichia coli 06/25/23 16:23 Blood Culture Gram Stain - Final Blood Blood Culture - Final Escherichia coli Assessment and Plan (1) Gram-negative bacteremia Current Visit: Yes Status: Acute Code(s): R78.81 - BACTEREMIA SNOMED Co de(s): 940935099613 (2) Fever Current Visit: Yes Status: Acute Code(s): R50.9 - FEVER, UNSPECIFIED SNOMED Code(s): 522672674 Plan: 1patient presented hospital with sepsis in this patient with fever along with nausea and vomiting patient was noticed to be mildly tender in the right upper quadrant area with a question of possible abdominal source, patient did have CT abdominal pelvis with oral contrast only as the patient did have mild elevated BUN/creatinine And did not show any acute abnormality patient did have a UA 2 that has been negative 2patient blood cultures with E. coli that that is resistant to Unasyn we will discontinue Unasyn and start the patient on Rocephin 2 g daily 3-patient to continue with IV antibiotics while inpatient finishing therapy with oral antibiotic on discharge Dictation was produced using [employer] dictation software. please excuse any grammatical, word or spelling errors. Time with Patient: Less than 30
[2023-06-29 16:42] LABS: Glucose,Whole Blood 258 mg/dL (70-110)
--- NOTE | 2023-06-29 16:51 | P.PN ---
Progress Note - Text Progress Note Date: 06/29/23 This is a 58-year-old patient who follows with Dr. Pino. Chronic stable medical conditions include GERD, osteoarthritis, seizure disorder, hypothyroid, MS, diabetic peripheral neuropathy, optic neuritis, decreased vision in the eyes, restless leg syndrome, anxiety depression. . came in with compensative hyperglycemia, patient was also comparing of fever chills. Patient was complaining of nausea vomiting as well. Patient does take Motrin as outpatient for pain in the left hand for which patient underwent outpatient surgery for fracture. Patient was sitting Keflex at home. Patient is found to be febrile. Chest x-ray did not show any pneumonia. Urinalysis is essentially within normal limits. Patient has mildly elevated troponin of 0.143 and plateaued at that level. Patient was later doesn't have any fever chills patient was started on Zosyn. Patient was started on IV fluids leading to hyperchloremia. She was started on long-acting insulin female insulin sliding scale with which blood sugars are well controlled at this time. Patient was started on Pepcid as well as IV. Patient baseline creatinine is around 1 present creatinine is 1.8. 06/27/2023 Patient evaluated today sitting up in the bed, no acute complaints overnight. Patient remains afebrile the last [address] completed shows no acute abdominopelvic process within limitations of a noncontrast exam there is development of a right lower lobe spiculated 2.6 x 1.8 centimeter nodule that raises concern for possibly malignancy further evaluation with PET CT is recommended. Blood culture showing gram-negative bacilli and will be repeated infectious diseases follow patient remains on IV antibiotics in the form of IV Unasyn. White count is normalized, sodium 134, potassium of 4.5, BUN 24, creatinine 1.42, liver enzymes are elevated and CRP is mildly elevated. She continues on half-normal saline at 75 mls/hr. Orthopedics has evaluated patient and her recent left hand ORIF recommending to continue with current dressing changes. Patient complaining of some cough today and is offered Tessalon Perles and Robitussin. Glucose has improved. 06/28/2023: I assumed care of the patient today. Patient has significant cough. No sputum. Denies any fever and chills. Decreased appetite. Tired. Is admitted with sepsis. No obvious source of infection has been found. Blood cultures were positive for E. coli. On IV Unasyn. 06/29/2023: Some improvement in shortness breath. Still having cough. As per ID, IV Unasyn changed over to IV ceftriaxone. Repeat cultures pending from June 27. Oral intake improved. Has a patient sit up in a chair. Dressing in the left hand of the little finger. Active Medications Albuterol/Ipratropium (Ipratropium-Albuterol 3 Ml Neb) 3 ml INHALATION RT-QID [facility] Last Admin: 06/29/23 15:37 Dose: Not Given Albuterol/Ipratropium (Ipratropium-Albuterol 3 Ml Neb) 3 ml INHALATION RT-QID PRN PRN Reason: Shortness Of Breath Or Wheezing Benzocaine/Menthol (Benzocaine/Menthol Lozeng 1 Each Lozenge) 1 each MUCOUS MEM Q4HR PRN PRN Reason: Cough Last Admin: 06/27/23 20:59 Dose: 1 each Benzonatate (Benzonatate 100 Mg Cap) 100 mg PO TID [facility] Last Admin: 06/29/23 16:37 Dose: 100 mg Budesonide/Formoterol Fumarate (Symbicort 160-4.5 Mcg Inhaler) 2 puff INHALATION RT-BID [facility] Last Admin: 06/29/23 08:16 Dose: 2 puff Dextrose/Water (Dextrose 50% Syringe 50 Ml) 25 ml IVP PER PROTOCOL PRN; Protocol PRN Reason: Hypoglycemia Dextrose/Water (Dextrose 50% Syringe 50 Ml) 50 ml IVP PER PROTOCOL PRN; Protocol PRN Reason: Hypoglycemia Famotidine (Famotidine 20 Mg Tab) 20 mg PO HS [facility] Last Admin: 06/28/23 20:38 Dose: 20 mg Gabapentin (Gabapentin 400 Mg Cap) 400 mg PO TID [facility] Last Admin: 06/29/23 16:37 Dose: 400 mg Guaifenesin (Guaifenesin Syrup 100mg/5ml 200 Mg/10 Ml Cup) 200 mg PO Q6HR PRN PRN Reason: Cough Last Admin: 06/28/23 20:37 Dose: 200 mg Heparin Sodium (Porcine) (Heparin Sodium,Porcine/Pf 5,000 Unit/0.5 Ml Syringe) 5,000 unit SQ Q8HR [facility] Last Admin: 06/29/23 16:37 Dose: 5,000 unit Sodium Chloride (Saline 0.45%) 1,000 mls @ 75 mls/hr IV .[id number] [facility] Last Admin: 06/29/23 06:30 Dose: 75 mls/hr Ceftriaxone Sodium 2 gm/ (Sodium Chloride) 50 mls @ 100 mls/hr IVPB Q24HR [facility]; Protocol Last Admin: 06/29/23 16:37 Dose: 100 mls/hr Insulin Aspart (Insulin Aspart (Novolog) 100 Unit/Ml Vial) 0 unit SQ ACHS [facility]; Protocol Last Admin: 06/29/23 12:22 Dose: 2 unit Insulin Detemir (Insulin Detemir (Levemir) 100 Unit/Ml Syr) 18 unit SQ DAILY@0700 [facility] Last Admin: 06/29/23 05:59 Dose: 18 unit Levothyroxine Sodium (Levothyroxine 75 Mcg Tab) 150 mcg PO DAILY@0630 [facility] Last Admin: 06/29/23 05:56 Dose: Not Given Miscellaneous Information (Rx Info: Iv Contrast Was Given 1 Each Misc) 1 each MISCELLANE DAILY PRN PRN Reason: Per Protocol Stop: 06/30/23 12:50 Montelukast Sodium (Montelukast 10 Mg Tab) 10 mg PO DAILY [facility] Last Admin: 06/29/23 09:33 Dose: 10 mg Naloxone HCl (Naloxone 0.4 Mg/Ml 1 Ml Vial) 0.2 mg IV Q2M PRN PRN Reason: Opioid Reversal Ondansetron HCl (Ondansetron 4 Mg/2 Ml Vial) 4 mg IVP Q8HR PRN PRN Reason: Nausea And Vomiting Last Admin: 06/27/23 21:05 Dose: 4 mg Psyllium Hydrophilic Mucilloid (Psyllium Husk 100% 6 Gm Packet) 6 gm PO DAILY [facility] Last Admin: 06/29/23 09:33 Dose: 6 gm Ropinirole HCl (Ropinirole Hcl 0.25 Mg Tab) 0.5 mg PO HS [facility] Last Admin: 06/28/23 20:37 Dose: 0.5 mg Tramadol HCl (Tramadol 50 Mg Tab) 50 mg PO QID PRN PRN Reason: Pain Last Admin: 06/28/23 20:43 Dose: 50 mg Venlafaxine HCl (Venlafaxine Hcl Er 150 Mg Cap) 150 mg PO DAILY [facility] Last Admin: 06/29/23 09:33 Dose: 150 mg Past medical history to include: COPD, diabetes, GERD, osteoarthritis, seizure disorder, hypothyroid, multiple sclerosis, diabetic peripheral neuropathy, optic neuritis, decreased vision in the eyes,;, restless leg syndrome, colon polyps, anxiety depression Social history: Patient started smoking in 1978. Half a pack a day. More so in the past. Stop smoking May 2022. She was drinking heavy alcohol up to about 2016. Has a roommate Aubree. Occasionally does marijuana. Does use a cane Family history: Mother of heart attack. Physical examination: VITAL SIGNS: 98.2, 76, 16, 147/68, 98% room air GENERAL: Declining in bed, less bouts of coughing EYES: Pupils equal. Conjunctiva normal. HEENT: External appearance of nose and ears normal, oral cavity grossly normal. NECK: JVD not raised; masses not palpable. HEART: First and second heart sounds are normal; no edema. LUNGS: Respiratory rate increased; diminished breath sounds ABDOMEN: Soft, nontender, liver spleen not palpable, no masses palpable. PSYCH: [Alert and oriented x3; mood and affect anxious Left upper extremities: Dressing of the left hand/pinky INVESTIGATIONS, reviewed in the clinical context: June 28: White count 9.5 hemoglobin 8.7 platelets 219 sodium 136 potassium 3.4 creatinine 0.99 AST 52 ALT 64 Troponin I 0.046, 0.143 Serum acetone positive COVID-19: Not detected CT abdomen pelvis: Right lower lobe spiculated 2.6 x 1.8 cm nodule. June 25: Blood culture: E. coli Assessment and plan: -Sepsis, source unclear. Blood cultures positive for E. coli. IV ceftriaxone. CT abdomen-unremarkable. Repeat blood culture from June 27 pending. -Diabetic ketoacidosis: Corrected -Acute COPD exacerbation in a X smoker: DuoNeb 4 times a day. Symbicort -Hyponatremia from decreased food intake.: Mild Encourage oral intake. -Diabetes mellitus type 2, chronically on insulin. Uncontrolled with hyperglycemia Levemir -Diabetic peripheral neuropathy Neurontin -Hypothyroid Synthroid 150 g -GERD Pepcid -Restless leg syndrome requip 0.5 mg every daily at bedtime -Anxiety depression Effexor XR -Status post ORIF of left hand little finger fracture on June 23 Being followed by orthopedics Discussed with patient. Increase activity. Up in chair. Incentive spirometry. Awaiting repeat blood cultures.
[2023-06-29] MEDS: traMADol 50 MG TAB PO PRN (20:04)
[2023-06-29] MEDS: FAMOTIDINE 20 MG TAB PO SCH (20:05)
[2023-06-29 20:12] LABS: Glucose,Whole Blood 270 mg/dL (70-110)
[2023-06-30 04:00] LABS: Glucose,Whole Blood 482 mg/dL (70-110)
[2023-06-30] MEDS ORDERED: INSULIN REGULAR 100 UNIT/ML VIAL (IV) IV ONE (05:37)
[2023-06-30] MEDS ORDERED: DEXTROSE 50% SYRINGE 50 ML IVP PRN ×2 (05:45)
[2023-06-30] MEDS ORDERED: INSULIN REGULAR 100 UNIT in SODIUM CHLORIDE 0.9% 100 ML IV SCH (06:00)
[2023-06-30 06:05] LABS: Glucose,Whole Blood 502 mg/dL (70-110)
[2023-06-30] MEDS: SODIUM CHLORIDE 0.9% 1,000 ML IV SCH ×2 (06:25→15:07)
[2023-06-30] MEDS: LEVOTHYROXINE 75 MCG TAB PO SCH (06:32)
[2023-06-30 06:58] LABS: Glucose,Whole Blood 478 mg/dL (70-110)
[2023-06-30 07:22] LABS: Basophils % (A) 0 %; Eosinophils % (A) 0 %; HCT 24.7 % (34.0-46.0); Hypochromasia Slight; Lymphocytes # (A) 1.8 k/uL (1.0-4.8); Lymphocytes % (A) 22 %; MCH 31.6 pg (25.0-35.0); MCHC 32.6 g/dL (31.0-37.0); MCV 97.2 fL (80.0-100.0); Mean Platelet Volume 11.2; Monocytes # (A) 0.6 k/uL (0-1.0); Monocytes % (A) 7 %; Neutrophils # (A) 5.6 k/uL (1.3-7.7); Neutrophils % (A) 67 %; Platelet Count 294 k/uL (150-450); RBC 2.54 m/uL (3.80-5.40); RDW 14.1 % (11.5-15.5); WBC 8.4 k/uL (3.8-10.6)
[2023-06-30 07:26] LABS: African American GFR (CKD) 65 (>60 ml/min/1.73 sqM); Anion Gap 10 mmol/L; Blood Urea Nitrogen 10 mg/dL (7-17); Carbon Dioxide 13 mmol/L (22-30); Chloride 110 mmol/L (98-107); Non-African American GFR(CKD) 56 (>60 ml/min/1.73 sqM); Potassium 3.8 mmol/L (3.5-5.1); Sodium 133 mmol/L (137-145)
[2023-06-30] MEDS: SYMBICORT 160-4.5 MCG INHALER INHALATION SCH ×2 (07:49→20:52)
[2023-06-30] MEDS: IPRATROPIUM-ALBUTEROL 3 ML NEB INHALATION SCH ×4 (07:49→20:52)
[2023-06-30 07:57] LABS: Glucose,Whole Blood 440 mg/dL (70-110)
[2023-06-30] MEDS: BENZONATATE 100 MG CAP PO SCH ×3 (08:10→20:28)
[2023-06-30] MEDS: VENLAFAXINE HCL ER 150 MG CAP PO SCH (08:10)
[2023-06-30] MEDS: PSYLLIUM HUSK 100% 6 GM PACKET PO SCH (08:11)
[2023-06-30] MEDS: GABAPENTIN 400 MG CAP PO SCH ×3 (08:11→20:28)
[2023-06-30] MEDS: MONTELUKAST 10 MG TAB PO SCH (08:11)
[2023-06-30] MEDS: HEPARIN SODIUM,PORCINE/PF 5,000 UNIT/0.5 ML SYRINGE SQ SCH ×3 (08:11→23:34)
[2023-06-30 08:54] LABS: Glucose,Whole Blood 355 mg/dL (70-110)
[2023-06-30 09:33] LABS: African American GFR (CKD) 71 (>60 ml/min/1.73 sqM); Anion Gap 8 mmol/L; Blood Urea Nitrogen 10 mg/dL (7-17); Carbon Dioxide 14 mmol/L (22-30); Chloride 112 mmol/L (98-107); Non-African American GFR(CKD) 61 (>60 ml/min/1.73 sqM); Potassium 3.3 mmol/L (3.5-5.1); Sodium 134 mmol/L (137-145)
[2023-06-30 10:02] LABS: Glucose,Whole Blood 277 mg/dL (70-110)
[2023-06-30] MEDS ORDERED: D5-0.45% NACL WITH KCL 20MEQ/L 1,000 ML IV SCH (10:30)
[2023-06-30 11:01] LABS: Glucose,Whole Blood 179 mg/dL (70-110)
[2023-06-30] MEDS ORDERED: POTASSIUM CHLORIDE ER 20 MEQ TAB.ER PO STA (11:37)
[2023-06-30] MEDS ORDERED: INSULIN REGULAR 100 UNIT/ML VIAL (IM/SQ) SQ ONE (11:41)
[2023-06-30 12:02] LABS: Glucose,Whole Blood 74 mg/dL (70-110)
[2023-06-30 12:37] LABS: Glucose,Whole Blood 61 mg/dL (70-110)
[2023-06-30 12:57] LABS: Glucose,Whole Blood 105 mg/dL (70-110)
--- NOTE | 2023-06-30 13:40 | P.PN ---
Subjective Progress Note Date: 06/30/23 I am seeing this patient in consultation today 06/28/2023 on the cardiac step wn unit for a suspicious right lower lobe pulmonary nodule that was incidentally found on abdominal and pelvis CT. Patient is a 58-year-old white female with past medical history significant for being an ex-smoker, quitting 6 months ago and having over a [id number] history, COPD, diabetes mellitus, diabetic neuropathy, hypertension, hypothyroidism. Her primary care provider is Dr. Ryan Isbell. 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 Patient recently had a revised ORIF of the left hand for a fracture that occurred approximately one month ago. She was having episodes of nausea and vomiting, fever, accompanied with hyperglycemia for 24 hours preceding her arrival to the emergency room on June 25. Possibly had a mild component of DKA on arrival, which has improved. Blood cultures are also positive for gram-negative bacilli, and the patient is covered on Unasyn per infectious disease. No obvious source has been identified yet. Patient's nausea and vomiting has subsided. A nonenhanced abdominal and pelvis CT done yesterday did not show any acute intra-abdominal process. It did show a right lower lobe spiculated 2.6 x 1.8 cm nodule concerning for possible malignancy. This will have to be worked up once the patient's bacteremia has resolved. I did not see any prior CTs for comparison. Patient is currently sitting up in bed, on room air, in no acute distress. She does report mild chronic shortness of breath especially on exertion. She does have an intermittent dry cough and reports chest tightness. Denies any hemoptysis or chest pain. Most recent CBC shows a WBC count of 7.6, hemoglobin 8.2, hematocrit 25.9, and platelets 195. Most recent BMP from yesterday shows a sodium 134, potassium 4.4, chloride 113, serum bicarb 11, anion gap 10, BUN 24, creatinine 1.42, glucose 129. Half-normal saline is infusing at 75 mL per hour. Patient does have a component of acute kidney injury possibly related to NSAID use postoperatively. Urinalysis was not concerning for UTI. LFTs are mildly elevated. Negative for COVID-19. T-max was 102.3F on arrival, currently afebrile. Vital signs are stable. On today's evaluation of 06/29/2023, the patient is being seen for a follow-up. She is clinically stable and hemodynamically stable and she is afebrile and the patient continues to be on IV antibiotics regarding her gram-negative sepsis with E. coli. The patient remains on IV Unasyn. CAT scan of the chest and he went was completed, the patient's identified to have a cavitary lesion in the right lower lobe measuring 2 cm. Possibility of an underlying malignancy/primary bronchogenic lung cancer cannot be ruled out. There is some additional smaller nodules bilaterally. No mediastinal lymphadenopathy. He states he worked up on outpatient basis including a PET/CT and subsequently a biopsy if needed. On a separate note, consider the source of infection may be the arm. The patient has undergone an ORIF of the left arm/hand fracture that occurred approximately a month ago. I'm going to consult orthopedic surgery to evaluate the arm and if there is anyone underlying On 06/30/2023, the patient has no specific complaints. The patient is on IV Rocephin 2 g every 24 hours. The patient is being followed by infectious disease. Follow-up cultures are negative thus far. She is breathing comfortably. Limited cough. No significant sputum production. No nausea v omiting or emesis. The left upper extremity was again reevaluated by orthopedic surgery and the patient is post closed reduction and Perc 10 of the left small finger. No signs of any infection involving the left hand. The patient will have her cast to be placed on outpatient basis. The blood sugars were noted to be elevated. Noted the patient has diabetes mellitus and she was started back on insulin drip by the medical team. The serum bicarb is being monitored. Anion gap is also being monitored. No significant and I get metabolic acidosis this point in time. Objective - Vital Signs Vital signs: Vital Signs Temp 98.7 F 06/30/23 08:00 Pulse 68 06/30/23 12:22 Resp 18 06/30/23 08:00 BP 146/74 06/30/23 08:00 Pulse Ox 99 06/30/23 08:00 FiO2 21 06/29/23 08:20 Intake & Output 06/29/23 06/30/23 06/30/23 18:59 06:59 18:59 Intake Total 990 5.097 403.867 Balance 990 5.097 403.867 Intake: Intake, IV Titration 750 5.097 43.867 Amount Ampicillin-Sulbactam 3 gm 100 In Sodium Chloride 0.9% 100 ml @ 200 mls/hr IVPB Q6H [facility] Rx#:[id number] Insulin Regular 100 unit 5.097 43.867 In Sodium Chloride 0.9% 100 ml @ 0.1 UNITS/KG/HR 7.282 mls/hr IV .[id number] [facility] Rx#:[id number] Sodium Chloride 0.45% 1, 600 000 ml @ 75 mls/hr IV . [id number] [facility] Rx#:[id number] cefTRIAXone 2 gm In 50 Sodium Chloride 0.9% 50 ml @ 100 mls/hr IVPB Q24HR [facility] Rx#:[id number] Oral 240 360 Other: Voiding Method Toilet Toilet # Voids 1 1 - Exam GENERAL EXAM: Alert,58-year-old white female appearing stated age , comfortable in no apparent distress. HEAD: Normocephalic and atraumatic EYES: Normal reaction of pupils, equal size. NOSE: Clear with pink turbinates. THROAT: No erythema or exudates. NECK: No masses, no JVD. CHEST: No chest wall deformity. LUNGS: Equal air entry with very mild end expiratory wheezes heard posteriorly throughout. No crackles, wheeze, rhonchi or focal dullness. On room air. No conversational dyspnea or accessory muscle use.. CVS: S1 and S2 normal with no audible murmur, regular rhythm. No extra heart sounds ABDOMEN: No hepatosplenomegaly, active bowel sounds, no guarding or rigidity. SPINE: No scoliosis or deformity SKIN: No rashes CENTRAL NERVOUS SYSTEM: No focal deficits, tone is normal in all 4 extremities. EXTREMITIES: left hand and arm are in a splint. There is no peripheral edema, clubbing, or cyanosis. Peripheral pulses are intact. - Labs CBC & Chem 7: 06/30/23 04:41 06/30/23 08:50 Labs: Abnormal Lab Results - Last 24 Hours (Table) 06/29/23 06/29/23 06/30/23 Range/Units 16:40 20:10 03:58 RBC (3.80-5.40) m/uL Hgb (11.4-16.0) gm/dL Hct (34.0-46.0) % Sodium (137-145) mmol/L Potassium (3.5-5.1) mmol/L Chloride (98-107) mmol/L Carbon Dioxide (22-30) mmol/L Creatinine (0.52-1.04) mg/dL POC Glucose (mg/dL) 258 H 270 H 482 H (70-110) mg/dL 06/30/23 06/30/23 06/30/23 Range/Units 04:41 04:41 06:05 RBC 2.54 L (3.80-5.40) m/uL Hgb 8.0 L (11.4-16.0) gm/dL Hct 24.7 L (34.0-46.0) % Sodium 133 L (137-145) mmol/L Potassium (3.5-5.1) mmol/L Chloride 110 H (98-107) mmol/L Carbon Dioxide 13 L (22-30) mmol/L Creatinine 1.08 H (0.52-1.04) mg/dL POC Glucose (mg/dL) 502 H (70-110) mg/dL 06/30/23 06/30/23 06/30/23 Range/Units 06:56 07:55 08:50 RBC (3.80-5.40) m/uL Hgb (11.4-16.0) gm/dL Hct (34.0-46.0) % Sodium 134 L (137-145) mmol/L Potassium 3.3 L (3.5-5.1) mmol/L Chloride 112 H (98-107) mmol/L Carbon Dioxide 14 L (22-30) mmol/L Creatinine (0.52-1.04) mg/dL POC Glucose (mg/dL) 478 H 440 H (70-110) mg/dL 06/30/23 06/30/23 06/30/23 Range/Units 08:53 10:01 10:59 RBC (3.80-5.40) m/uL Hgb (11.4-16.0) gm/dL Hct (34.0-46.0) % Sodium (137-145) mmol/L Potassium (3.5-5.1) mmol/L Chloride (98-107) mmol/L Carbon Dioxide (22-30) mmol/L Creatinine (0.52-1.04) mg/dL POC Glucose (mg/dL) 355 H 277 H 179 H (70-110) mg/dL 06/30/23 Range/Units 12:35 RBC (3.80-5.40) m/uL Hgb (11.4-16.0) gm/dL Hct (34.0-46.0) % Sodium (137-145) mmol/L Potassium (3.5-5.1) mmol/L Chloride (98-107) mmol/L Carbon Dioxide (22-30) mmol/L Creatinine (0.52-1.04) mg/dL POC Glucose (mg/dL) 61 L (70-110) mg/dL Microbiology - Last 24 Hours (Table) 06/29/23 08:49 Gram Stain - Preliminary Sputum Sputum Culture - Preliminary 06/27/23 07:26 Blood Culture - Preliminary Blood Assessment and Plan Assessment: Right lower lobe spiculated nodule measuring 2.6 x 1.8 cm concerning for possible malignancy. This will likely need to be followed up with biopsy, and outpatient PET scan once ready for discharge. The CAT scan of the chest also showed presence of a right lower lobe nodule with some limited cavitation. No mediastinal lymphadenopathy. E. coli septicemia. The patient had a Gram-negative bacteremia and possible sepsis. Patient is hemodynamically stable, no signs of shock. Patient was started on Unasyn per infectious disease. Unclear source. Non-anion gap hyperchloremic metabolic acidosis, being managed by the medical team. Acute kidney injury, possibly related to NSAID use and dehydration, recovered Recent history of ORIF revision for a left hand fracture that occurred lam[place] roximately one month ago Diabetes mellitus type 1, complicated with diabetic neuropathy. Possible mild component of DKA on arrival, which is improved, she continues to have a component of anion gap metabolic acidosis. She is currently on an insulin drip. Chronic obstructive pulmonary disease, in mild exacerbation. Chest x-ray on arrival showed no acute cardiopulmonary process. Negative for COVID-19. Elevated LFTs, mild, with undetermined significance Anemia, no obvious acute blood loss Benign essential hypertension Hypothyroidism Multiple sclerosis Restless leg syndrome History of cervical degenerative disc disease status post anterior cervical decompression with discectomy and fusion History of chronic nicotine dependence, quitting 6 months ago, with over [id number] history. plan: Management of the metabolic acidosis per medicine Patient is currently on insulin drip Orthopedic surgery reevaluated left upper extremity and there is no signs of any infection Continue IV Rocephin Reviewed the CAT scan of the chest Continue Symbicort inhaler and DuoNeb's. On room air. Alternating Tessalon Perles with Robitussin as antitussives Outpatient PET/CT once the condition is more stable and possibly a biopsy of the right lower lobe nodule/mass if needed.
[2023-06-30] MEDS: traMADol 50 MG TAB PO PRN ×2 (13:41→20:28)
[2023-06-30 13:46] VITALS: BMI 31.0
[2023-06-30 13:49] LABS: African American GFR (CKD) 71 (>60 ml/min/1.73 sqM); Anion Gap 10 mmol/L; Blood Urea Nitrogen 9 mg/dL (7-17); Carbon Dioxide 14 mmol/L (22-30); Chloride 113 mmol/L (98-107); Non-African American GFR(CKD) 61 (>60 ml/min/1.73 sqM); Potassium 3.6 mmol/L (3.5-5.1); Sodium 137 mmol/L (137-145)
[2023-06-30 14:15] LABS: Glucose,Whole Blood 246 mg/dL (70-110)
--- NOTE | 2023-06-30 14:51 | P.PN ---
Progress Note - Text Progress Note Date: 06/30/23 This is a 58-year-old patient who follows with Dr. Pino. Chronic stable medical conditions include GERD, osteoarthritis, seizure disorder, hypothyroid, MS, diabetic peripheral neuropathy, optic neuritis, decreased vision in the eyes, restless leg syndrome, anxiety depression. . came in with compensative hyperglycemia, patient was also comparing of fever chills. Patient was complaining of nausea vomiting as well. Patient does take Motrin as outpatient for pain in the left hand for which patient underwent outpatient surgery for fracture. Patient was sitting Keflex at home. Patient is found to be febrile. Chest x-ray did not show any pneumonia. Urinalysis is essentially within normal limits. Patient has mildly elevated troponin of 0.143 and plateaued at that level. Patient was later doesn't have any fever chills patient was started on Zosyn. Patient was started on IV fluids leading to hyperchloremia. She was started on long-acting insulin female insulin sliding scale with which blood sugars are well controlled at this time. Patient was started on Pepcid as well as IV. Patient baseline creatinine is around 1 present creatinine is 1.8. 06/27/2023 Patient evaluated today sitting up in the bed, no acute complaints overnight. Patient remains afebrile the last [address] completed shows no acute abdominopelvic process within limitations of a noncontrast exam there is development of a right lower lobe spiculated 2.6 x 1.8 centimeter nodule that raises concern for possibly malignancy further evaluation with PET CT is recommended. Blood culture showing gram-negative bacilli and will be repeated infectious diseases follow patient remains on IV antibiotics in the form of IV Unasyn. White count is normalized, sodium 134, potassium of 4.5, BUN 24, creatinine 1.42, liver enzymes are elevated and CRP is mildly elevated. She continues on half-normal saline at 75 mls/hr. Orthopedics has evaluated patient and her recent left hand ORIF recommending to continue with current dressing changes. Patient complaining of some cough today and is offered Tessalon Perles and Robitussin. Glucose has improved. 06/28/2023: I assumed care of the patient today. Patient has significant cough. No sputum. Denies any fever and chills. Decreased appetite. Tired. Is admitted with sepsis. No obvious source of infection has been found. Blood cultures were positive for E. coli. On IV Unasyn. 06/29/2023: Some improvement in shortness breath. Still having cough. As per ID, IV Unasyn changed over to IV ceftriaxone. Repeat cultures pending from June 27. Oral intake improved. Has a patient sit up in a chair. Dressing in the left hand of the little finger. 06/30/2023: Patient Accu-Cheks went to 400s. Serum acetone positive. Started on insulin drip overnight. Patient been eating dawood crackers. Also patient's home dose of NovoLog Mix 70/30 started today. Patient remains on insulin drip until this evening. Breathing better. Active Medications Albuterol/Ipratropium (Ipratropium-Albuterol 3 Ml Neb) 3 ml INHALATION RT-QID [facility] Last Admin: 06/30/23 12:07 Dose: 3 ml Albuterol/Ipratropium (Ipratropium-Albuterol 3 Ml Neb) 3 ml INHALATION RT-QID PRN PRN Reason: Shortness Of Breath Or Wheezing Benzocaine/Menthol (Benzocaine/Menthol Lozeng 1 Each Lozenge) 1 each MUCOUS MEM Q4HR PRN PRN Reason: Cough Last Admin: 06/27/23 20:59 Dose: 1 each Benzonatate (Benzonatate 100 Mg Cap) 100 mg PO TID [facility] Last Admin: 06/30/23 08:10 Dose: 100 mg Budesonide/Formoterol Fumarate (Symbicort 160-4.5 Mcg Inhaler) 2 puff INHALATION RT-BID [facility] Last Admin: 06/30/23 07:49 Dose: 2 puff Dextrose/Water (Dextrose 50% Syringe 50 Ml) 25 ml IVP PER PROTOCOL PRN; Protocol PRN Reason: Hypoglycemia Dextrose/Water (Dextrose 50% Syringe 50 Ml) 50 ml IVP PER PROTOCOL PRN; Protocol PRN Reason: Hypoglycemia Famotidine (Famotidine 20 Mg Tab) 20 mg PO HS [facility] Last Admin: 06/29/23 20:05 Dose: 20 mg Gabapentin (Gabapentin 400 Mg Cap) 400 mg PO TID [facility] Last Admin: 06/30/23 08:11 Dose: 400 mg Guaifenesin (Guaifenesin Syrup 100mg/5ml 200 Mg/10 Ml Cup) 200 mg PO Q6HR PRN PRN Reason: Cough Last Admin: 06/28/23 20:37 Dose: 200 mg Heparin Sodium (Porcine) (Heparin Sodium,Porcine/Pf 5,000 Unit/0.5 Ml Syringe) 5,000 unit SQ Q8HR [facility] Last Admin: 06/30/23 08:11 Dose: 5,000 unit Sodium Chloride (Saline 0.45%) 1,000 mls @ 75 mls/hr IV .[id number] [facility] Last Admin: 06/29/23 22:16 Dose: Not Given Ceftriaxone Sodium 2 gm/ (Sodium Chloride) 50 mls @ 100 mls/hr IVPB Q24HR [facility]; Protocol Last Admin: 06/30/23 09:44 Dose: 100 mls/hr Insulin Human Regular 100 unit (/ Sodium Chloride) 101 mls @ 7.282 mls/hr IV .[id number] [facility]; Protocol Last Titration: 06/30/23 14:15 Dose: 0.06 units/kg/hr, 4.6 mls/hr Insulin Aspart (Insuln Asp Prt/Insulin Aspart 100 Unit/Ml 10 Ml Vial) 10 unit SQ AC-BID [facility] Levothyroxine Sodium (Levothyroxine 75 Mcg Tab) 150 mcg PO DAILY@0630 [facility] Last Admin: 06/30/23 06:32 Dose: 150 mcg Montelukast Sodium (Montelukast 10 Mg Tab) 10 mg PO DAILY [facility] Last Admin: 06/30/23 08:11 Dose: 10 mg Naloxone HCl (Naloxone 0.4 Mg/Ml 1 Ml Vial) 0.2 mg IV Q2M PRN PRN Reason: Opioid Reversal Ondansetron HCl (Ondansetron 4 Mg/2 Ml Vial) 4 mg IVP Q8HR PRN PRN Reason: Nausea And Vomiting Last Admin: 06/27/23 21:05 Dose: 4 mg Psyllium Hydrophilic Mucilloid (Psyllium Husk 100% 6 Gm Packet) 6 gm PO DAILY [facility] Last Admin: 06/30/23 08:11 Dose: 6 gm Ropinirole HCl (Ropinirole Hcl 0.25 Mg Tab) 0.5 mg PO HS [facility] Last Admin: 06/29/23 20:04 Dose: 0.5 mg Tramadol HCl (Tramadol 50 Mg Tab) 50 mg PO QID PRN PRN Reason: Pain Last Admin: 06/30/23 13:41 Dose: 50 mg Venlafaxine HCl (Venlafaxine Hcl Er 150 Mg Cap) 150 mg PO DAILY [facility] Last Admin: 06/30/23 08:10 Dose: 150 mg Past medical history to include: COPD, diabetes, GERD, osteoarthritis, seizure disorder, hypothyroid, multiple sclerosis, diabetic peripheral neuropathy, optic neuritis, decreased vision in the eyes,;, restless leg syndrome, colon polyps, anxiety depression Social history: Patient started smoking in 1978. Half a pack a day. More so in the past. Stop smoking May 2022. She was drinking heavy alcohol up to about 2016. Has a roommate Aubree. Occasionally does marijuana. Does use a cane Family history: Mother of heart attack. Physical examination: VITAL SIGNS: 98.7, 83, 18, 146/74, 95% GENERAL: Sitting at the edge of the bed, breathing better EYES: Pupils equal. Conjunctiva normal. HEENT: External appearance of nose and ears normal, oral cavity grossly normal. NECK: JVD not raised; masses not palpable. HEART: First and second heart sounds are normal; no edema. LUNGS: Respiratory rate normal; diminished breath sounds ABDOMEN: Soft, nontender, liver spleen not palpable, no masses palpable. PSYCH: [Alert and oriented x3; mood and affect anxious Left upper extremities: Dressing of the left hand/pinky INVESTIGATIONS, reviewed in the clinical context: June 30: Sodium 137 potassium 3.6 bicarb 14 creatinine 1.01 June 28: White count 9.5 hemoglobin 8.7 platelets 219 sodium 136 potassium 3.4 creatinine 0.99 AST 52 ALT 64 Troponin I 0.046, 0.143 Serum acetone positive COVID-19: Not detected CT abdomen pelvis: Right lower lobe spiculated 2.6 x 1.8 cm nodule. June 25: Blood culture: E. coli Assessment and plan: -Sepsis, source unclear. Blood cultures positive for E. coli. IV ceftriaxone. CT abdomen-unremarkable. Repeat blood culture from June 27 pending. -Diabetic ketoacidosis: Uncontrolled On IV insulin drip. -Acute COPD exacerbation in a X smoker: DuoNeb 4 times a day. Symbicort -Right lower lobe speculated nodule 2.6 x 1.8 cm. Consent for malignancy. Outpatient PET scan upon discharge and follow-up with Dr. Garcia for possible biopsy. -Hyponatremia from decreased food intake.: Mild Encourage oral intake. -Diabetes mellitus type 2, chronically on insulin. Uncontrolled with hyperglycemia Currently on insulin drip. -Diabetic peripheral neuropathy Neurontin -Hypothyroid Synthroid 150 g -GERD Pepcid -Restless leg syndrome requip 0.5 mg every daily at bedtime -Anxiety depression Effexor XR -Status post ORIF of left hand little finger fracture on June 23 Being followed by orthopedics IV insulin drip. Patient follow-up with Dr. Garcia outpatient for possible biopsy/PET scan
[2023-06-30] MEDS: SODIUM CHLORIDE 0.45% 1,000 ML IV SCH ×2 (15:07→21:51)
[2023-06-30 15:15] LABS: Glucose,Whole Blood 290 mg/dL (70-110)
[2023-06-30 15:52] LABS: Glucose,Whole Blood 285 mg/dL (70-110)
[2023-06-30 16:59] LABS: Glucose,Whole Blood 210 mg/dL (70-110)
[2023-06-30] MEDS: INSULN ASP PRT/INSULIN ASPART 100 UNIT/ML 10 ML VIAL SQ SCH (17:37)
[2023-06-30 17:58] LABS: Glucose,Whole Blood 173 mg/dL (70-110)
[2023-06-30 19:08] LABS: Glucose,Whole Blood 217 mg/dL (70-110)
[2023-06-30] MEDS: INSULIN ASPART (NovoLOG) 100 UNIT/ML VIAL SQ SCH (20:27)
[2023-06-30] MEDS: FAMOTIDINE 20 MG TAB PO SCH (20:28)
[2023-06-30 23:41] LABS: Glucose,Whole Blood 296 mg/dL (70-110)
[2023-06-30] MEDS ORDERED: INSULIN ASPART (NovoLOG) 100 UNIT/ML VIAL SQ ONE (23:54)
[2023-07-01 05:48] LABS: Glucose,Whole Blood 263 mg/dL (70-110)
[2023-07-01] MEDS: LEVOTHYROXINE 75 MCG TAB PO SCH (05:52)
[2023-07-01] MEDS: INSULIN ASPART (NovoLOG) 100 UNIT/ML VIAL SQ SCH ×2 (06:26→12:19)
[2023-07-01] MEDS: INSULN ASP PRT/INSULIN ASPART 100 UNIT/ML 10 ML VIAL SQ SCH (06:27)
[2023-07-01] MEDS ORDERED: INSULIN DETEMIR (LEVEMIR) 100 UNIT/ML SYR SQ SCH (07:00)
[2023-07-01] MEDS: IPRATROPIUM-ALBUTEROL 3 ML NEB INHALATION SCH ×2 (09:13→12:37)
[2023-07-01] MEDS: SYMBICORT 160-4.5 MCG INHALER INHALATION SCH (09:13)
[2023-07-01] MEDS: GABAPENTIN 400 MG CAP PO SCH (09:20)
[2023-07-01] MEDS: HEPARIN SODIUM,PORCINE/PF 5,000 UNIT/0.5 ML SYRINGE SQ SCH (09:20)
[2023-07-01] MEDS: VENLAFAXINE HCL ER 150 MG CAP PO SCH (09:20)
[2023-07-01] MEDS: BENZONATATE 100 MG CAP PO SCH (09:20)
[2023-07-01] MEDS: traMADol 50 MG TAB PO PRN (09:20)
[2023-07-01] MEDS: MONTELUKAST 10 MG TAB PO SCH (09:21)
--- NOTE | 2023-07-01 09:29 | P.PN ---
Subjective Progress Note Date: 06/30/23 Principal diagnosis: E. coli bacteremia Patient is a 58-year-old female with a past medical history significant for diabetes mellitus COPD hypertension who recently did have surgery on the left fifth finger by hand surgery presenting to the hospital for evaluation of nausea vomiting and did have elevated blood sugar, patient did have a CT abdominal pelvis that was negative for acute process however the patient did have a positive blood culture with E. coli. On today's evaluation that is 06/30/2023, the patient continues to be afebrile patient is breathing comfortably on room air, the patient cough is decreased intensity and not bringing up any sputum, the patient denies any nausea no vomiting no abdominal pain or diarrhea Patient did have a white count of 8.4, creatinine has normalized to 1.1, repeat blood culture has been negative, UA checked 2 negative Objective - Vital Signs Vital signs: Vital Signs Temp 98.7 F 06/30/23 08:00 Pulse 68 06/30/23 12:22 Resp 18 06/30/23 08:00 BP 146/74 06/30/23 08:00 Pulse Ox 99 06/30/23 08:00 FiO2 21 06/29/23 08:20 Intake & Output 06/29/23 06/30/23 06/30/23 18:59 06:59 18:59 Intake Total 990 5.097 283.867 Balance 990 5.097 283.867 Intake: Intake, IV Titration 750 5.097 43.867 Amount Ampicillin-Sulbactam 3 gm 100 In Sodium Chloride 0.9% 100 ml @ 200 mls/hr IVPB Q6H [facility] Rx#:[id number] Insulin Regular 100 unit 5.097 43.867 In Sodium Chloride 0.9% 100 ml @ 0.1 UNITS/KG/HR 7.282 mls/hr IV .[id number] [facility] Rx#:[id number] Sodium Chloride 0.45% 1, 600 000 ml @ 75 mls/hr IV . [id number] [facility] Rx#:[id number] cefTRIAXone 2 gm In 50 Sodium Chloride 0.9% 50 ml @ 100 mls/hr IVPB Q24HR [facility] Rx#:[id number] Oral 240 240 Other: Voiding Method Toilet Toilet # Voids 1 1 - Exam GENERAL DESCRIPTION: A middle-aged female lying in bed in no distress RESPIRATORY SYSTEM: Unlabored breathing , decreased breath sounds at bases HEART: S1 S2 regular rate and rhythm , ABDOMEN: Soft , no tenderness EXTREMITIES: No edema feet - Labs CBC & Chem 7: 06/30/23 04:41 06/30/23 12:38 Labs: Abnormal Lab Results - Last 24 Hours (Table) 06/29/23 06/29/23 06/30/23 Range/Units 16:40 20:10 03:58 RBC (3.80-5.40) m/uL Hgb (11.4-16.0) gm/dL Hct (34.0-46.0) % Sodium (137-145) mmol/L Potassium (3.5-5.1) mmol/L Chloride (98-107) mmol/L Carbon Dioxide (22-30) mmol/L Creatinine (0.52-1.04) mg/dL POC Glucose (mg/dL) 258 H 270 H 482 H (70-110) mg/dL 06/30/23 06/30/23 06/30/23 Range/Units 04:41 04:41 06:05 RBC 2.54 L (3.80-5.40) m/uL Hgb 8.0 L (11.4-16.0) gm/dL Hct 24.7 L (34.0-46.0) % Sodium 133 L (137-145) mmol/L Potassium (3.5-5.1) mmol/L Chloride 110 H (98-107) mmol/L Carbon Dioxide 13 L (22-30) mmol/L Creatinine 1.08 H (0.52-1.04) mg/dL POC Glucose (mg/dL) 502 H (70-110) mg/dL 06/30/23 06/30/23 06/30/23 Range/Units 06:56 07:55 08:50 RBC (3.80-5.40) m/uL Hgb (11.4-16.0) gm/dL Hct (34.0-46.0) % Sodium 134 L (137-145) mmol/L Potassium 3.3 L (3.5-5.1) mmol/L Chloride 112 H (98-107) mmol/L Carbon Dioxide 14 L (22-30) mmol/L Creatinine (0.52-1.04) mg/dL POC Glucose (mg/dL) 478 H 440 H (70-110) mg/dL 06/30/23 06/30/23 06/30/23 Range/Units 08:53 10:01 10:59 RBC (3.80-5.40) m/uL Hgb (11.4-16.0) gm/dL Hct (34.0-46.0) % Sodium (137-145) mmol/L Potassium (3.5-5.1) mmol/L Chloride (98-107) mmol/L Carbon Dioxide (22-30) mmol/L Creatinine (0.52-1.04) mg/dL POC Glucose (mg/dL) 355 H 277 H 179 H (70-110) mg/dL 06/30/23 Range/Units 12:35 RBC (3.80-5.40) m/uL Hgb (11.4-16.0) gm/dL Hct (34.0-46.0) % Sodium (137-145) mmol/L Potassium (3.5-5.1) mmol/L Chloride (98-107) mmol/L Carbon Dioxide (22-30) mmol/L Creatinine (0.52-1.04) mg/dL POC Glucose (mg/dL) 61 L (70-110) mg/dL Microbiology - Last 24 Hours (Table) 06/29/23 08:49 Gram Stain - Preliminary Sputum Sputum Culture - Preliminary 06/27/23 07:26 Blood Culture - Preliminary Blood Assessment and Plan (1) Gram-negative bacteremia Current Visit: Yes Status: Acute Code(s): R78.81 - BACTEREMIA SNOMED Code(s): 946886431514 (2) Fever Current Visit: Yes Status: Acute Code(s): R50.9 - FEVER, UNSPECIFIED SNOMED Code(s): 332965780 Plan: 1patient presented hospital with sepsis in this patient with fever along with nausea and vomiting patient was noticed to be mildly tender in the right upper quadrant area with a question of possible abdominal source, patient did have CT abdominal pelvis with oral contrast only as the patient did have mild elevated BUN/creatinine And did not show any acute abnormality patient did have a UA 2 that has been negative 2patient blood cultures with E. coli that that is resistant to Unasyn we will continue the patient on Rocephin 2 g daily, with a plan to finish therapy with oral Ceftin Dictation was produced using [employer] dictation software. please excuse any grammatical, word or spelling errors. Time with Patient: Less than 30
[2023-07-01] MEDS: PSYLLIUM HUSK 100% 6 GM PACKET PO SCH (09:31)
[2023-07-01] MEDS: SODIUM CHLORIDE 0.45% 1,000 ML IV SCH (11:38)
[2023-07-01 11:39] LABS: Glucose,Whole Blood 157 mg/dL (70-110)
[2023-07-01 12:37] LABS: African American GFR (CKD) 77 (>60 ml/min/1.73 sqM); Anion Gap 8 mmol/L; Blood Urea Nitrogen 7 mg/dL (7-17); Carbon Dioxide 16 mmol/L (22-30); Chloride 112 mmol/L (98-107); Glucose 126 mg/dL (74-99); Non-African American GFR(CKD) 67 (>60 ml/min/1.73 sqM); Potassium 3.8 mmol/L (3.5-5.1); Sodium 136 mmol/L (137-145)
--- NOTE | 2023-07-01 14:28 | P.PN ---
Subjective Progress Note Date: 07/01/23 I am seeing this patient in consultation today 06/28/2023 on the cardiac step wn unit for a suspicious right lower lobe pulmonary nodule that was incidentally found on abdominal and pelvis CT. Patient is a 58-year-old white female with past medical history significant for being an ex-smoker, quitting 6 months ago and having over a [id number] history, COPD, diabetes mellitus, diabetic neuropathy, hypertension, hypothyroidism. Her primary care provider is Dr. Ryan Isbell. 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 Patient recently had a revised ORIF of the left hand for a fracture that occurred approximately one month ago. She was having episodes of nausea and vomiting, fever, accompanied with hyperglycemia for 24 hours preceding her arrival to the emergency room on June 25. Possibly had a mild component of DKA on arrival, which has improved. Blood cultures are also positive for gram-negative bacilli, and the patient is covered on Unasyn per infectious disease. No obvious source has been identified yet. Patient's nausea and vomiting has subsided. A nonenhanced abdominal and pelvis CT done yesterday did not show any acute intra-abdominal process. It did show a right lower lobe spiculated 2.6 x 1.8 cm nodule concerning for possible malignancy. This will have to be worked up once the patient's bacteremia has resolved. I did not see any prior CTs for comparison. Patient is currently sitting up in bed, on room air, in no acute distress. She does report mild chronic shortness of breath especially on exertion. She does have an intermittent dry cough and reports chest tightness. Denies any hemoptysis or chest pain. Most recent CBC shows a WBC count of 7.6, hemoglobin 8.2, hematocrit 25.9, and platelets 195. Most recent BMP from yesterday shows a sodium 134, potassium 4.4, chloride 113, serum bicarb 11, anion gap 10, BUN 24, creatinine 1.42, glucose 129. Half-normal saline is infusing at 75 mL per hour. Patient does have a component of acute kidney injury possibly related to NSAID use postoperatively. Urinalysis was not concerning for UTI. LFTs are mildly elevated. Negative for COVID-19. T-max was 102.3F on arrival, currently afebrile. Vital signs are stable. On today's evaluation of 06/29/2023, the patient is being seen for a follow-up. She is clinically stable and hemodynamically stable and she is afebrile and the patient continues to be on IV antibiotics regarding her gram-negative sepsis with E. coli. The patient remains on IV Unasyn. CAT scan of the chest and he went was completed, the patient's identified to have a cavitary lesion in the right lower lobe measuring 2 cm. Possibility of an underlying malignancy/primary bronchogenic lung cancer cannot be ruled out. There is some additional smaller nodules bilaterally. No mediastinal lymphadenopathy. He states he worked up on outpatient basis including a PET/CT and subsequently a biopsy if needed. On a separate note, consider the source of infection may be the arm. The patient has undergone an ORIF of the left arm/hand fracture that occurred approximately a month ago. I'm going to consult orthopedic surgery to evaluate the arm and if there is anyone underlying On 06/30/2023, the patient has no specific complaints. The patient is on IV Rocephin 2 g every 24 hours. The patient is being followed by infectious disease. Follow-up cultures are negative thus far. She is breathing comfortably. Limited cough. No significant sputum production. No nausea v omiting or emesis. The left upper extremity was again reevaluated by orthopedic surgery and the patient is post closed reduction and Perc 10 of the left small finger. No signs of any infection involving the left hand. The patient will have her cast to be placed on outpatient basis. The blood sugars were noted to be elevated. Noted the patient has diabetes mellitus and she was started back on insulin drip by the medical team. The serum bicarb is being monitored. Anion gap is also being monitored. No significant and I get metabolic acidosis this point in time. On 07/01/2023, no specific complaints and the patient's condition is stable. The patient remains on IV Rocephin and the patient is receiving 2 g of Rocephin every 24 hours. Blood work was repeated and the serum bicarbs up to 16. The patient has a component of melena negative metabolic acidosis. BUN is at 7 with a creatinine of 0.9. Glucose at 129. The patient was switched to Levemir insulin 18 units daily and addition to 10 units of NovoLog 7030 twice a day with meals and a sliding scale coverage. Objective - Vital Signs Vital signs: Vital Signs Temp 98.3 F 07/01/23 08:00 Pulse 81 07/01/23 08:00 Resp 16 07/01/23 08:00 BP 114/58 07/01/23 08:00 Pulse Ox 98 07/01/23 08:00 FiO2 21 06/29/23 08:20 Intake & Output 06/30/23 07/01/23 07/01/23 18:59 06:59 18:59 Intake Total 899.864 400 100 Balance 899.864 400 100 Weight 72.1 kg Intake: Intake, IV Titration 59.864 Amount Insulin Regular 100 unit 59.864 In Sodium Chloride 0.9% 100 ml @ 0.1 UNITS/KG/HR 7.282 mls/hr IV .[id number] [facility] Rx#:[id number] Oral 840 400 100 Other: Voiding Method Toilet Toilet # Voids 1 - Exam GENERAL EXAM: Alert,58-year-old white female appearing stated age , comfortable in no apparent distress. HEAD: Normocephalic and atraumatic EYES: Normal reaction of pupils, equal size. NOSE: Clear with pink turbinates. THROAT: No erythema or exudates. NECK: No masses, no JVD. CHEST: No chest wall deformity. LUNGS: Equal air entry with very mild end expiratory wheezes heard posteriorly throughout. No crackles, wheeze, rhonchi or focal dullness. On room air. No conversational dyspnea or accessory muscle use.. CVS: S1 and S2 normal with no audible murmur, regular rhythm. No extra heart sounds ABDOMEN: No hepatosplenomegaly, active bowel sounds, no guarding or rigidity. SPINE: No scoliosis or deformity SKIN: No rashes CENTRAL NERVOUS SYSTEM: No focal deficits, tone is normal in all 4 extremities. EXTREMITIES: left hand and arm are in a splint. There is no peripheral edema, clubbing, or cyanosis. Peripheral pulses are intact. - Labs CBC & Chem 7: 06/30/23 04:41 07/01/23 12:07 Labs: Abnormal Lab Results - Last 24 Hours (Table) 06/30/23 06/30/23 06/30/23 Range/Units 12:35 12:38 14:13 Chloride 113 H (98-107) mmol/L Carbon Dioxide 14 L (22-30) mmol/L POC Glucose (mg/dL) 61 L 246 H (70-110) mg/dL 06/30/23 06/30/23 06/30/23 Range/Units 15:03 15:51 16:58 Chloride (98-107) mmol/L Carbon Dioxide (22-30) mmol/L POC Glucose (mg/dL) 290 H 285 H 210 H (70-110) mg/dL 06/30/23 06/30/23 06/30/23 Range/Units 17:56 19:08 23:36 Chloride (98-107) mmol/L Carbon Dioxide (22-30) mmol/L POC Glucose (mg/dL) 173 H 217 H 296 H (70-110) mg/dL 07/01/23 07/01/23 Range/Units 05:46 11:37 Chloride (98-107) mmol/L Carbon Dioxide (22-30) mmol/L POC Glucose (mg/dL) 263 H 157 H (70-110) mg/dL Microbiology - Last 24 Hours (Table) 06/29/23 08:49 Gram Stain - Final Sputum Sputum Culture - Final 06/27/23 07:26 Blood Culture - Preliminary Blood Assessment and Plan Assessment: Right lower lobe spiculated nodule measuring 2.6 x 1.8 cm concerning for possible malignancy. This will likely need to be followed up with biopsy, and outpatient PET scan once ready for discharge. The CAT scan of the chest also showed presence of a right lower lobe nodule with some limited cavitation. No mediastinal lymphadenopathy. E. coli septicemia. The patient had a Gram-negative bacteremia and possible sepsis. Patient is hemodynamically stable, no signs of shock. Patient was started on Unasyn per infectious disease. Unclear source. Non-anion gap hyperchloremic metabolic acidosis, being managed by the medical team. Acute kidney injury, possibly related to NSAID use and dehydration, recovered Recent history of ORIF revision for a left hand fracture that occurred approximately one month ago Diabetes mellitus type 1, complicated with diabetic neuropathy. Possible mild component of DKA on arrival, which is improved, she continues to have a c omponent of anion gap metabolic acidosis. She is currently on an insulin drip. Chronic obstructive pulmonary disease, in mild exacerbation. Chest x-ray on arrival showed no acute cardiopulmonary process. Negative for COVID-19. Elevated LFTs, mild, with undetermined significance Anemia, no obvious acute blood loss Benign essential hypertension Hypothyroidism Multiple sclerosis Restless leg syndrome History of cervical degenerative disc disease status post anterior cervical decompression with discectomy and fusion History of chronic nicotine dependence, quitting 6 months ago, with over [id number] history. plan: Management of the metabolic acidosis per medicine, the patient continues to have a component of non-I get metabolic acidosis on today's blood work Patient has been switched to Levemir insulin and the medical team is managing her blood sugar control Orthopedic surgery reevaluated left upper extremity and there is no signs of any infection Continue IV Rocephin 2 g every 24 hours Reviewed the CAT scan of the chest Continue Symbicort inhaler and DuoNeb's. On room air. Alternating Tessalon Perles with Robitussin as antitussives Outpatient PET/CT once the condition is more stable and possibly a biopsy of the right lower lobe nodule/mass if needed.
[2023-07-01 15:22] VITALS: BP 132/76; PULSE 92; RESP 18; TEMP 98.1
[2023-07-01] MEDS ORDERED: HEPARIN SODIUM,PORCINE 5,000 UNIT/ML 1 ML VIAL SQ SCH (16:00)
--- NOTE | 2023-07-01 16:34 | P.DS ---
Providers Date of admission: 06/25/23 18:09 Expected date of discharge: 07/01/23 Attending physician: Azeem Keen Consults: 06/25/23 18:04 Consult Physician Routine Consulting Provider: Dee Richter Consult Reason/Comments: Fever, possible sepsis Do you want consulting provider notified?: Yes Consult Physician Routine Consulting Provider: Lissette Valentine Consult Reason/Comments: post-operative patient. Fever Do you want consulting provider notified?: Already Contacted 06/27/23 10:10 Consult Physician Routine Consulting Provider: Ryan Ramírez Consult Reason/Comments: Rt lower lobe lung nodule Do you want consulting provider notified?: Yes Primary care physician: [facility] Course: This is a 58-year-old patient who follows with Dr. Pino. Chronic stable medical conditions include GERD, osteoarthritis, seizure disorder, hypothyroid, MS, diabetic peripheral neuropathy, optic neuritis, decreased vision in the eyes, restless leg syndrome, anxiety depression. . came in with compensative hyperglycemia, patient was also comparing of fever chills. Patient was complaining of nausea vomiting as well. Patient does take Motrin as outpatient for pain in the left hand for which patient underwent outpatient surgery for fracture. Patient was sitting Keflex at home. Patient is found to be febrile. Chest x-ray did not show any pneumonia. Urinalysis is essentially within normal limits. Patient has mildly elevated troponin of 0.143 and plateaued at that level. Patient was later doesn't have any fever chills patient was started on Zosyn. Patient was started on IV fluids leading to hyperchloremia. She was started on long-acting insulin female insulin sliding scale with which blood sugars are well controlled at this time. Patient was started on Pepcid as well as IV. Patient baseline creatinine is around 1 present creatinine is 1.8. 06/27/2023 Patient evaluated today sitting up in the bed, no acute complaints overnight. Patient remains afebrile the last [address] completed shows no acute abdominopelvic process within limitations of a noncontrast exam there is development of a right lower lobe spiculated 2.6 x 1.8 centimeter nodule that raises concern for possibly malignancy further evaluation with PET CT is recommended. Blood culture showing gram-negative bacilli and will be repeated infectious diseases follow patient remains on IV antibiotics in the form of IV Unasyn. White count is normalized, sodium 134, potassium of 4.5, BUN 24, creatinine 1.42, liver enzymes are elevated and CRP is mildly elevated. She continues on half-normal saline at 75 mls/hr. Orthopedics has evaluated patient and her recent left hand ORIF recommending to continue with current dressing changes. Patient complaining of some cough today and is offered Tessalon Perles and Robitussin. Glucose has improved. 06/28/2023: I assumed care of the patient today. Patient has significant cough. No sputum. Denies any fever and chills. Decreased appetite. Tired. Is admitted with sepsis. No obvious source of infection has been found. Blood cultures were positive for E. coli. On IV Unasyn. 06/29/2023: Some improvement in shortness breath. Still having cough. As per ID, IV Unasyn changed over to IV ceftriaxone. Repeat cultures pending from June 27. Oral intake improved. Has a patient sit up in a chair. Dressing in the left hand of the little finger. 06/30/2023: Patient Accu-Cheks went to 400s. Serum acetone positive. Started on insulin drip overnight. Patient been eating dawood crackers. Also patient's home dose of NovoLog Mix 70/30 started today. Patient remains on insulin drip until this evening. Breathing better. 07/01/2023: Patient doing well. Up and about.Symptoms greatly improved. Patient be discharged. Home dose of NovoLog Mix 70/30 increased. Discussed with patient. Will follow up with Dr. Garcia from the right lung lesion outpatient. Also follow-up with orthopedics. Questions answered. Patient to keep a log for Accu-Cheks and follow with PCP Discussion and discharge planning more than 35 minutes Past medical history to include: COPD, diabetes, GERD, osteoarthritis, seizure disorder, hypothyroid, multiple sclerosis, diabetic peripheral neuropathy, optic neuritis, decreased vision in the eyes,;, restless leg syndrome, colon polyps, anxiety depression Social history: Patient started smoking in 1978. Half a pack a day. More so in the past. Stop smoking May 2022. She was drinking heavy alcohol up to about 2017. Has a roommate Aubree. Occasionally does marijuana. Does use a cane Family history: Mother of heart attack. Physical examination: VITAL SIGNS: At 8.1, 92, 18, 132/76, 97% room air GENERAL: Sitting at the edge of the bed, comfortable EYES: Pupils equal. Conjunctiva normal. HEENT: External appearance of nose and ears normal, oral cavity grossly normal. NECK: JVD not raised; masses not palpable. HEART: First and second heart sounds are normal; no edema. LUNGS: Respiratory rate normal; diminished breath sounds ABDOMEN: Soft, nontender, liver spleen not palpable, no masses palpable. PSYCH: [Alert and oriented x3; mood and affect anxious Left upper extremities: Dressing of the left hand/pinky INVESTIGATIONS, reviewed in the clinical context: July 01: Potassium 3.8 creatinine 0.94 June 30: Sodium 137 potassium 3.6 bicarb 14 creatinine 1.01 June 28: White count 9.5 hemoglobin 8.7 platelets 219 sodium 136 potassium 3.4 creatinine 0.99 AST 52 ALT 64 Troponin I 0.046, 0.143 Serum acetone positive COVID-19: Not detected CT abdomen pelvis: Right lower lobe spiculated 2.6 x 1.8 cm nodule. June 25: Blood culture: E. coli Assessment and plan: -Sepsis, source unclear. Blood cultures positive for E. coli. IV ceftriaxone. CT abdomen-unremarkable. Repeat blood culture from June 27 pending. Patient to complete Ceftin 5 mg for 10 days per ID. -Diabetic ketoacidosis: Resolved -Acute COPD exacerbation in a X smoker: Better Albuterol when necessary. Symbicort -Right lower lobe speculated nodule 2.6 x 1.8 cm. Consent for malignancy. Outpatient PET scan upon discharge and follow-up with Dr. Garcia for possible biopsy. -Hyponatremia from decreased food intake.: Mild Encourage oral intake. -Diabetes mellitus type 2, chronically on insulin. Insulin mix 70/30: Increase to 16 units subcu twice a day. Lantus 18 units to continue. -Diabetic peripheral neuropathy Neurontin cutback to 800 mg twice a day. -Hypothyroid Synthroid 150 g -GERD Pepcid -Restless leg syndrome requip 0.5 mg every daily at bedtime -Anxiety depression Effexor XR -Status post ORIF of left hand little finger fracture on June 23 Being followed by orthopedics Disposition: Home Plan - Discharge Summary Discharge Rx Participant: No New Discharge Prescriptions: New Albuterol Sulfate [Albuterol Sulfate Hfa] 1 puff PO Q4-6H #8.5 gm Budesonide-Formot 160-4.5 Mcg [Symbicort 160-4.5 Mcg Inhaler] 2 puff INHALATION RT-BID #1 each Psyllium Husk 100% [Metamucil Packet] 6 gm PO DAILY packet Famotidine [Pepcid] 20 mg PO HS #30 tab cefUROXime axetiL [Ceftin] 500 mg PO BID 10 Days #20 tab Continue Insulin Glargine,Hum.rec.anlog [Lantus Solostar Pen] 18 unit SQ DAILY rOPINIRole HCL [Requip] 0.5 mg PO HS Levothyroxine Sodium [Synthroid] 25 mcg PO DAILY Levothyroxine Sodium [Synthroid] 125 mcg PO DAILY Montelukast [Singulair] 10 mg PO DAILY Venlafaxine HCl [Effexor XR] 150 mg PO DAILY Cyclobenzaprine [Flexeril] 10 mg PO TID PRN #60 tab PRN Reason: Spasms Changed Gabapentin [Neurontin] 800 mg PO BID #0 Insulin NPH Hum/Reg Insulin Hm [humuLIN 70/30 Kwikpen] 16 unit SQ AC-BID #0 Discontinued Ibuprofen [Motrin] 800 mg PO TID PRN PRN Reason: Fever And/ Or Pain Cephalexin [Keflex] 500 mg PO DIRECTED cloNIDine HCL [Catapres] 0.3 mg PO BID Losartan/Hydrochlorothiazide [Losartan-Hctz 100-25 mg Tab] 1 tab PO DAILY Discharge Medication List Levothyroxine Sodium [Synthroid] 125 mcg PO DAILY 03/10/22 [History] Insulin Glargine,Hum.rec.anlog [Lantus Solostar Pen] 18 unit SQ DAILY 07/28/22 [History] Montelukast [Singulair] 10 mg PO DAILY 07/28/22 [History] Venlafaxine HCl [Effexor XR] 150 mg PO DAILY 12/11/22 [History] Cyclobenzaprine [Flexeril] 10 mg PO TID PRN #60 tab 12/17/22 [Rx] Levothyroxine Sodium [Synthroid] 25 mcg PO DAILY 03/17/23 [History] rOPINIRole HCL [Requip] 0.5 mg PO HS 03/17/23 [History] Albuterol Sulfate [Albuterol Sulfate Hfa] 1 puff PO Q4-6H #8.5 gm 07/01/23 [Rx] Budesonide-Formot 160-4.5 Mcg [Symbicort 160-4.5 Mcg Inhaler] 2 puff INHALATION RT-BID #1 each 07/01/23 [Rx] Famotidine [Pepcid] 20 mg PO HS #30 tab 07/01/23 [Rx] Gabapentin [Neurontin] 800 mg PO BID #0 07/01/23 [Rx] Insulin NPH Hum/Reg Insulin Hm [humuLIN 70/30 Kwikpen] 16 unit SQ AC-BID #0 07/01/23 [Rx] Psyllium Husk 100% [Metamucil Packet] 6 gm PO DAILY packet 07/01/23 [Rx] cefUROXime axetiL [Ceftin] 500 mg PO BID 10 Days #20 tab 07/01/23 [Rx] Follow up Appointment(s)/Referral(s): Blanca Jack NPC [Nurse Practitioner] - 07/02/23 Ryan Pino MD [Primary Care Provider] - 1-2 days Dee Richter MD [STAFF PHYSICIAN] - 1 Week Laurie Garcia MD [STAFF PHYSICIAN] - 10 Days (Appt Monday 07/09 1:30pm) Activity/Diet/Wound Care/Special Instructions: Maintain splint and bandage. Ice and elevate Take meds as directed Follow-up in office antibiotics per dr richter Discharge Disposition: HOME SELF-CARE
== END 2023-07-01 15:27 | disposition home or self-care (01) | DRG 871 ==
LOC: EC 15:44 → 3SCARD 18:09
PROVIDERS: ADMIT Hospitalist; ATTEND Hospitalist
DX: A41.51 Sepsis due to Escherichia coli [E. coli] (principal); E10.10 Type 1 diabetes mellitus with ketoacidosis without coma; E87.1 Hypo-osmolality and hyponatremia; H46.9 Unspecified optic neuritis; J44.1 Chronic obstructive pulmonary disease with (acute) exacerbation; N17.9 Acute kidney failure, unspecified; E03.9 Hypothyroidism, unspecified; Z79.4 Long term (current) use of insulin; E10.42 Type 1 diabetes mellitus with diabetic polyneuropathy; E10.65 Type 1 diabetes mellitus with hyperglycemia; E86.1 Hypovolemia; E87.8 Other disorders of electrolyte and fluid balance, not elsewhere classified; F32.A Depression, unspecified; F41.9 Anxiety disorder, unspecified; G25.81 Restless legs syndrome; D64.9 Anemia, unspecified; R77.8 Other specified abnormalities of plasma proteins; M19.90 Unspecified osteoarthritis, unspecified site; G35 Multiple sclerosis; G40.909 Epilepsy, unspecified, not intractable, without status epilepticus; H54.7 Unspecified visual loss; I10 Essential (primary) hypertension; K21.9 Gastro-esophageal reflux disease without esophagitis; Z20.822 Contact with and (suspected) exposure to COVID-19; Z87.891 Personal history of nicotine dependence; Z79.51 Long term (current) use of inhaled steroids; Z79.899 Other long term (current) drug therapy; Z82.49 Family history of ischemic heart disease and other diseases of the circulatory system; Z86.010 Personal history of colon polyps; Z98.1 Arthrodesis status; Z71.3 Dietary counseling and surveillance; Z79.890 Hormone replacement therapy
CPT/HCPCS: 36415; 71045; 71260; 74176; 80048; 80051; 80053; 81001; 82009; 82565; 83036; 83605; 83735; 84484; 84520; 85025; 85610; 85730; 86140; 87040; 87070; 87077; 87186; 87205; 87635; 93005; 94640; 94760

== ENCOUNTER → 2023-07-23 | Outpatient (CLI) | payer MEDICARE, OTHER ==
--- NOTE | 2023-07-23 09:59 | PE ---
EXAMINATION TYPE: PET CT fusion skull to thigh DATE OF EXAM: 07/23/2023 CLINICAL INDICATION:Female, 58 years old with history of lung nodule; TECHNIQUE: Following the intravenous administration of 12.5 mCi of F-18 FDG, whole body images are performed from the skull base to the midthigh. Images are reviewed on the computer in the coronal, a xial, and sagittal planes. Reconstructed rotating images are created on independent workstation and reviewed on the computer. A non-contrast CT is performed in conjunction with the PET scan. Glucose level 71 mg/dL CT DLP: 427 mGycm, Automated exposure control for dose reduction was used. COMPARISON: CT 06/28/2023, PET/CT None, FINDINGS: Mediastinal SUV mean is 1.5. Hepatic parenchyma SUV mean is 1.7. SKULL BASE AND NECK: No suspicious radiotracer activity. CHEST, MEDIASTINUM, AND HILAR REGION: Right lower lung mass measuring similarly at 2.6 x 2.0 cm max S UV 1.3. There are some calcifications present. ABDOMEN AND PELVIS: No suspicious radiotracer activity. MUSCULOSKELETAL STRUCTURES: No suspicious radiotracer activity. OTHER CT: Atherosclerosis of the arterial vasculature. Multinodular thyroid goiter on the right. Athe rosclerosis of the coronary arteries. Affecting umbilical hernia. Postsurgical changes cecum. Post moore rgical changes to the cervical spine with hardware in place. IMPRESSION: Right lower lung nodule with calcification with FDG activity below background levels. Findings could relate to granulomatous process with malignancy nontender excluded.. Consider tissue sampling and/or short-term follow-up in 3 months to ensure stability/resolution. This is not significantly changed fr om 06/26/2023. No additional suspicious FDG activity.
== END | disposition home or self-care (01) ==
LOC: RADPETMAIN 06:29
PROVIDERS: ATTEND Internal Medicine Critical Care Medicine
DX: R91.1 Solitary pulmonary nodule (principal)
CPT/HCPCS: 78815; A9552

== ENCOUNTER 2023-08-12 11:58 | Day surgery (SDC) | payer MEDICARE, OTHER ==
[2023-08-10 15:46] VITALS: BMI 29.2
[~2023-08-12 11:58] MED LIST changes: +DEXAMETHASONE SOD PHOSPHATE 4 MG/ML 1 ML VIAL IV ONE; +LACTATED RINGERS 1,000 ML IV SCH; -LIDOCAINE 1% (10MG/ML) FOR IV START INTRADERMA PRN; +ONDANSETRON 4 MG/2 ML VIAL IVP ONE; -ceFAZolin 1,000 MG in SODIUM CHLORIDE 0.9% IRRIGATIO 1,000 ML IRRIGATION PRN
[2023-08-12] MEDS ORDERED: LACTATED RINGERS 1,000 ML IV ONE (12:30)
[2023-08-12 12:31] LABS: Glucose,Whole Blood 56 mg/dL (70-110)
[2023-08-12] MEDS ORDERED: DEXTROSE 50% SYRINGE 50 ML IVP ONE (12:39)
[2023-08-12 12:55] LABS: Glucose,Whole Blood 164 mg/dL (70-110)
[2023-08-12] MEDS ORDERED: fentaNYL (PF) 50 MCG/ML 2 ML AMP ONE (12:59)
[2023-08-12] MEDS ORDERED: NEOSTIGMINE 1 MG/ML 10 ML VIAL ONE (12:59)
[2023-08-12] MEDS ORDERED: MIDAZOLAM 2 MG/2 ML VIAL ONE (12:59)
[2023-08-12] MEDS ORDERED: ROCURONIUM 10 MG/ML (5 ML VIAL) IV ONE (12:59)
[2023-08-12] MEDS ORDERED: PROPOFOL 10 MG/ML 20 ML VIAL IV ONE (12:59)
[2023-08-12] MEDS ORDERED: PHENYLEPHRINE-0.9% NACL SYG 1,000 MCG/10 ML SYRINGE ONE (12:59)
[2023-08-12] MEDS ORDERED: GLYCOPYRROLATE 0.2 MG/ML 2 ML VIAL ONE (12:59)
[2023-08-12] MEDS ORDERED: LIDOCAINE 2% INJ 20 MG/ML (2 ML VIAL) ONE (12:59)
[2023-08-12] MEDS ORDERED: ePHEDrine 50 MG/ML 1 ML VIAL ONE (12:59)
--- NOTE | 2023-08-12 13:08 | CT ---
EXAMINATION TYPE: CT chest wo con DATE OF EXAM: 08/12/2023 COMPARISON: 07/23/2023, 06/28/2023 HISTORY: ION CHEST CT DLP: 428 mGycm. Automated Exposure Control for Dose Reduction was Utilized. TECHNIQUE: CT scan of the thorax is performed without IV contrast. FINDINGS: LUNGS: The lungs are grossly clear, there is no concerning consolidative pneumonia identified. Ther e is no pleural effusion or pneumothorax seen. The tracheobronchial tree is patent. Right lower lung spiculated mass measuring similarly at 2.6 x 2.0 cm stable. 2 mm nodule right upper lobe subpleural axial image 89 There is a 2 mm subpleural micronodule axial image 175 right middle lobe. There are multiple addition al subpleural upper lobe micronodules which have a benign appearance. 3 mm nodule seen on axial image 58. There is mild basilar bronchiectasis. MEDIASTINUM: Lack of IV contrast is noted to limit evaluation for mediastinal and especially hilar ad enopathy. There are no definitive greater than 1 cm hilar or mediastinal lymph nodes. The heart size is normal. Annular calcification noted. There is a small hiatal hernia and dense coronary artery calc ification. Mild atherosclerotic change aorta. OTHER: Hypertrophic degenerative change of the spine. Post surgical change involving the cervical spi ne. IMPRESSION: 1. Stable spiculated right lower lobe lung mass. Malignancy in the differential diagnosis.
[2023-08-12 13:51] LABS: Glucose,Whole Blood 71 mg/dL (70-110)
--- NOTE | 2023-08-12 14:11 | XR ---
EXAMINATION TYPE: XR chest 1V portable DATE OF EXAM: 08/12/2023 Comparison: 06/25/2023 Clinical History: 58-year-old female S/P BRONCH R/O PNEUMO Findings: ACDF hardware. Heart normal size. No consolidation, pneumothorax, or pleural effusion. Impression: No acute cardiopulmonary process.
--- NOTE | 2023-08-12 14:21 | FL ---
EXAMINATION TYPE: FL bronchoscopy DATE OF EXAM: 08/12/2023 CLINICAL HISTORY: BRONCH WITH ION TECHNIQUE: Fluoroscopy. COMPARISON: None. FINDINGS: 1 min 12 sec fl time used dap 5.0061 bronch with ion jennifer IMPRESSION: As Above.
[2023-08-12 16:06] VITALS: BP 160/73; PULSE 84; RESP 16; TEMP 97.8
--- NOTE | 2023-08-12 16:09 | P.PCN ---
Date of Procedure: 08/12/23 Description of Procedure: Preoperative Diagnosis: Right lower lobe mass, 2.6x 1.8 cm Postoperative Diagnosis: Right lower lobe mass Procedure(s) Performed: Flexible bronchoscopy Robotic-assisted bronchoscopy and addition to radial ultrasound evaluation of the pulmonary mass Robotic-assisted transbronchial needle aspirate, transbronchial biopsies, transbronchial brushing of the right lower lobe nodule in addition to a bronchioloalveolar lavage Anesthesia: ISELA Surgeon: Laurie Garcia Estimated Blood Loss (ml): 0 Pathology: other Condition: stable Disposition: same day Operative Findings: A physical exam was performed. Informed consent was obtained from the patient after explaining all the risks (pneumothorax, life threatening bleeding, infection and adverse effects due to medications), benefits and alternatives to the procedure which the patient appeared to understand and so stated. The patient was connected to the monitoring devices. General anesthesia was induced and the patient was intubated by anesthesia. A final timeout was performed and the procedure confirmed by the attending staff bronchoscopist. The bronchoscope was inserted and the airway examined. The flexible bronchoscope was removed and the robotic bronchoscope was inserted. Registration was completed. I next guided the robotic bronchoscope using the navigation system into the right lower lobe posterior segment. Once in proper position, the bronchoscope was frozen. The radial EBUS probe was placed through the bronchoscope and confirmed abnormal u/s images vs normal lung. A needle was placed through the working channel and under fluoroscopic guidance, we sampled the area thought to have the mass twice. We then used a cloud biopsy pattern with ultrasound confirmation for 2 additional passes with the needle. U/S evaluation was then used to reconfirm location. Forceps were next introduced through working channel and extended the appropriate distance and 6 transbronchial biopsies were performed using fluoroscopic guidance. The u/s probe was then reinserted to confirm location. When confirmed this process was repeated for a total of 6 transbronchial biopsies. After reassessment with EBUS, a brush was placed through the extendable working channel for 1 pass with fluoroscopic guidance. U/S evaluation was then used to confirm location. 40ml of saline was then instilled into the area of the lesion. The robotic bronchoscope was removed and the airway inspected with a flexible bronchoscope and 10 ml of effluent from the BAL was collected. Flexible bronchoscope was inserted and regular suctioning was done. At the c ompletion of the procedure, no residual secretions or bloody material within the airway. The bronchoscope was removed. The patient was extubated. FINDINGS: 1.The airways appeared normal 2 Successful navigation, ultrasonographic identification, and biopsies of right lower lobe pulmonary mass 3.The the radial ultrasound view was (Concentric/Eccentric)}. RECOMMENDATIONS: Await pathology and cytology results The referring physician will be alerted to the results when available. The patient was advised to follow up with the referring physician with the biopsy results Patient will be called with results.
== END 2023-08-12 15:15 | disposition home or self-care (01) ==
LOC: ORWHC2ENDO 11:58
PROVIDERS: ATTEND Internal Medicine Critical Care Medicine
DX: C34.31 Malignant neoplasm of lower lobe, right bronchus or lung (principal); K44.9 Diaphragmatic hernia without obstruction or gangrene; J44.9 Chronic obstructive pulmonary disease, unspecified; E03.9 Hypothyroidism, unspecified; E11.9 Type 2 diabetes mellitus without complications; G40.909 Epilepsy, unspecified, not intractable, without status epilepticus; G25.81 Restless legs syndrome; G35 Multiple sclerosis; I10 Essential (primary) hypertension; F32.A Depression, unspecified; F41.9 Anxiety disorder, unspecified; K21.9 Gastro-esophageal reflux disease without esophagitis; F17.210 Nicotine dependence, cigarettes, uncomplicated; Z79.51 Long term (current) use of inhaled steroids; Z79.890 Hormone replacement therapy; Z79.84 Long term (current) use of oral hypoglycemic drugs; Z79.899 Other long term (current) drug therapy; Z98.890 Other specified postprocedural states
CPT/HCPCS: 87798 ×3; 87496; 87498; 87529; 88305; 88342; 87502; 87634; 88341; 87070; 87205; 87116; 87102; 87206; 71045; 71250; 31628; 31629; 31623; 31624; J2250; J1100; J2710; J2405; J3010; J2704; J2001; J2371; S2900

== ENCOUNTER → 2023-09-14 | Outpatient (CLI) | payer MEDICARE, OTHER ==
--- NOTE | 2023-09-16 21:20 | MR ---
EXAMINATION TYPE: MR brain wo/w con DATE OF EXAM: 09/14/2023 COMPARISON: None HISTORY: Lung cancer. CONTRAST: Performed utilizing 7 mL intravenous Gadavist gadolinium contrast. TECHNIQUE: Multiplanar, multiecho imaging on a 3.0 Bindu magnet is performed through the brain. Stud y is performed within 24 hours of arrival to the hospital. The craniovertebral junction is normal. The pituitary is normal. Diffusion-weighted imaging is performed. No abnormal hyperintensity is present to suggest an acute i ntracranial infarct or acute ischemic change. Diffuse areas of increased signal are present within the periventricular white matter, centrum semiov thomas, and within the brainstem. Findings are nonspecific but could be related to microvascular ischemi c change. Ventricles and sulci are appropriate for the patient age. No abnormal enhancement is evident. No masslike areas are identified. IMPRESSION: 1. Diffuse patchy white matter changes likely on the basis of chronic white matter ischemic change. 2. No suspicious changes to suggest metastatic disease
== END | disposition home or self-care (01) ==
LOC: RADMRIMAIN 11:23
PROVIDERS: ATTEND Thoracic Surgery (Cardiothoracic Vascular Surgery)
DX: R90.82 White matter disease, unspecified (principal); C34.31 Malignant neoplasm of lower lobe, right bronchus or lung; R55 Syncope and collapse
CPT/HCPCS: 70553

== ENCOUNTER → 2023-09-15 | Outpatient (CLI) | payer MEDICARE, OTHER ==
--- NOTE | 2023-09-15 11:59 | CA ---
Lexiscan Nuclear Stress Test Report Name: Sumaya Abbasi Exam Date: 09/15/2023 11:00 Exam Location: [facility] Ht (in): 60 Wt (lb): 150 BSA: 1.65 Ordering Phys: Nicolas James MD Referring Phys: NICOLAS JAMES,, Technologist: Jose Armando Adams Age: 58 Gender: F : 1965 Procedure CPT: Indications: R55 Syncope ICD-10 Codes: Patient History: Medications: SEE CHART Meds past 24 hrs: Pretest Chest Pain: STRESS TEST Lexiscan Protocol Exercise Duration (min:sec): 02:[address] Depressions (mm): Angina Score: Tomlin Score: Resting HR (bpm): 58 Peak HR (bpm): 78 Resting BP (mmHg): 124 / 70 Peak BP (mmHg): 110 / 60 MPHR: 161 Target HR: 137 % MPHR: 48 METS: 1.0 Total Dose: Peak Dose: Atropine: Double Product: 8580 BP Response: Stress Termination: PROTOCOL COMPLETE Stress Symptoms: NO SYMPTOMS Stress Summary: ECG ANALYSIS Resting ECG: Stress ECG: CONCLUSIONS No ECG evidence for ischemia during Lexiscan infusion Normal heart rate and blood pressure response Dr. Tawanda Vela MD (Electronically Signed) Final Date: 15 September 2023 11:58
--- NOTE | 2023-09-15 14:54 | NM ---
EXAMINATION TYPE: NM stress lexiscan cardiolite DATE OF EXAM: 09/15/2023 COMPARISON: NONE CLINICAL INDICATION: Female, 58 years old with history of R55 SYNCOPE; TECHNIQUE: After the intravenous administration of 9.8 mCi Tc 99m Sestamibi - Cardiolite resting SPE CT images acquired 45 minutes post injection. The patient received 0.4mg Lexiscan, 24.4 mCi Tc 99m Sestamibi - Stress images obtained [address] injection FINDINGS: Review of rest and stress SPECT images show moderate sized area of reversibility along the mid latera l wall. Gated analysis shows normal wall motion with an estimated left ventricular ejection fraction of 85 %. TID is upper limits of normal at 1.08. IMPRESSION: Correlate for inducible ischemia involving a moderate sized area along the mid lateral wa ll.
== END | disposition home or self-care (01) ==
LOC: RADNMMAIN 08:52
PROVIDERS: ATTEND Thoracic Surgery (Cardiothoracic Vascular Surgery)
DX: R55 Syncope and collapse (principal); C34.31 Malignant neoplasm of lower lobe, right bronchus or lung
CPT/HCPCS: 93017; 78452; A9500

== ENCOUNTER → 2023-09-27 | Outpatient (CLI) | payer MEDICARE, OTHER ==
[2023-09-27 15:09] LABS: INR 0.9 (<1.2); Partial Thromboplastin Time 24.3 sec (22.0-30.0)
[2023-09-27 20:54] LABS: Appearance,Urine Cloudy (Clear); Bilirubin,Urine Negative (Negative); Blood,Urine Negative (Negative); Color,Urine Yellow (Yellow); Ketones,Urine Trace (Negative); Nitrite,Urine Negative (Negative); Specific Gravity,Urine 1.022 (1.001-1.030)
[2023-09-27 22:11] LABS: Basophils # (A) 0.02 X 10*3/uL (0.00-0.10); Basophils % (A) 0.3 %; Eosinophils # (A) 0.13 X 10*3/uL (0.04-0.35); Eosinophils % (A) 2.1 %; HCT 38.6 % (37.2-46.3); HGB 12.3 d/dL (12.0-15.0); Lymphocytes % (A) 32.8 %; MCH 30.5 pg (27.0-32.0); MCHC 31.9 d/dL (32.0-37.0); MCV 95.8 FL (80.0-97.0); Mean Platelet Volume 12.9 FL (9.5-12.2); Monocytes # (A) 0.46 X 10*3/uL (0.20-1.00); Monocytes % (A) 7.5 %; NRBC Per 100 WBC 0 X 10*3/uL (0.00-0.01); Neutrophils # (A) 3.47 X 10*3/uL (1.80-7.70); Platelet Count 313 X 10*3/uL (140-440); RBC 4.03 X 10*6/uL (4.10-5.20); RDW 13.4 % (11.5-14.5)
[2023-09-27 23:01] LABS: Bacteria,Urine 2+ (None Seen)
[2023-09-28 07:55] LABS: Blood Urea Nitrogen 26.2 mg/dL (9.0-27.0)
== END | disposition home or self-care (01) ==
LOC: LABWHC1 13:11
PROVIDERS: ATTEND Thoracic Surgery (Cardiothoracic Vascular Surgery)
DX: Z01.812 Encounter for preprocedural laboratory examination (principal); C34.31 Malignant neoplasm of lower lobe, right bronchus or lung; E87.8 Other disorders of electrolyte and fluid balance, not elsewhere classified; Z79.899 Other long term (current) drug therapy; R58 Hemorrhage, not elsewhere classified; R06.00 Dyspnea, unspecified; R94.31 Abnormal electrocardiogram [ECG] [EKG]
CPT/HCPCS: 36415; 81001; 82565; 84520; 85025; 85610; 85730; 86850; 86900; 86901; 87086; 93005

== ENCOUNTER 2023-09-29 05:59 | Inpatient (IN) | payer MEDICARE, OTHER ==
[2023-09-29] MEDS ORDERED: ONDANSETRON 4 MG/2 ML VIAL IVP ONE ×2 (06:16→06:55)
[2023-09-29] MEDS ORDERED: LIDOCAINE 1% (10MG/ML) FOR IV START INTRADERMA PRN (06:16)
[2023-09-29] MEDS ORDERED: DEXAMETHASONE SOD PHOSPHATE 4 MG/ML 1 ML VIAL IV ONE (06:16)
[2023-09-29] MEDS ORDERED: droPERidol 5 MG/2 ML VIAL IVP ONE (06:16)
[2023-09-29 06:43] LABS: Glucose,Whole Blood 158 mg/dL (70-110)
[2023-09-29] MEDS: LACTATED RINGERS 1,000 ML IV SCH ×2 (06:44→06:58)
[2023-09-29 06:58] LABS: ALT 17 U/L (4-34); AST 27 U/L (14-36); African American GFR (CKD) 60 (>60 ml/min/1.73 sqM); Albumin 4.2 g/dL (3.5-5.0); Alkaline Phosphatase 114 U/L (38-126); Anion Gap 10 mmol/L; Blood Urea Nitrogen 27 mg/dL (7-17); Calcium 9.5 mg/dL (8.4-10.2); Carbon Dioxide 16 mmol/L (22-30); Chloride 113 mmol/L (98-107); Glucose 174 mg/dL (74-99); Non-African American GFR(CKD) 52 (>60 ml/min/1.73 sqM); Potassium 4.2 mmol/L (3.5-5.1); Sodium 139 mmol/L (137-145); Total Bilirubin 0.4 mg/dL (0.2-1.3); Total Protein 7.9 g/dL (6.3-8.2)
[2023-09-29] MEDS ORDERED: MIDAZOLAM 2 MG/2 ML VIAL IVP ONE (07:00)
[2023-09-29] MEDS ORDERED: HYDROmorphone 0.5 MG/0.5 ML SYRINGE IVP PRN (07:00)
[2023-09-29] MEDS ORDERED: fentaNYL (PF) 50 MCG/ML 2 ML AMP IVP ONE (07:00)
--- NOTE | 2023-09-29 07:11 | P.ANPRN ---
Procedure Note - Anesthesia - Nerve Block Performed Right Erector Spinae Single Date of Procedure: 09/29/23 Procedure Start Time: 06:59 Procedure Stop Time: 07:05 Location of Patient: PreOp Indication: Acute Post-Operative Pain, Requested by Surgeon Specifically requested for management of pain by DrRobin: Sreekanth James Sedation Type: Sedate with meaningful contact maintained Preparation: Sterile Prep Position: Prone Catheter: None Needle Types: Pajunk Needle Gauge: 21 Ultrasound used to visualize needle placement: Yes Ultrasound used to observe medication spread: Yes Injectate: 0.5% Ropivacaine (see comment for volume) (20 mL/10 ml NORMAL SALINE) Blood Aspirated: No Pain Paresthesia on Injection Noted: No Resistance on Injection: Normal Image Stored and Saved: Yes
[2023-09-29] MEDS ORDERED: LIDOCAINE 1% INJ 10MG/ML (20 ML MDV) ONE (07:39)
[2023-09-29] MEDS ORDERED: PHENYLEPHRINE-0.9% NACL SYG 1,000 MCG/10 ML SYRINGE ONE (07:39)
[2023-09-29] MEDS ORDERED: ROPIVACAINE 5 MG/ML 30 ML VIAL ONE (07:39)
[2023-09-29] MEDS ORDERED: SUGAMMADEX SODIUM 200 MG/2 ML SDV IV ONE (07:39)
[2023-09-29] MEDS ORDERED: SODIUM BICARB 8.4% 50 ML SYR (1 MEQ/ML) ONE (07:39)
[2023-09-29] MEDS ORDERED: PROPOFOL 10 MG/ML 20 ML VIAL IV ONE (07:39)
[2023-09-29] MEDS ORDERED: ROCURONIUM 10 MG/ML (5 ML VIAL) IV ONE (07:39)
[2023-09-29] MEDS ORDERED: MIDAZOLAM 2 MG/2 ML VIAL ONE (07:39)
[2023-09-29] MEDS ORDERED: ONDANSETRON 4 MG/2 ML VIAL ONE (07:39)
[2023-09-29] MEDS ORDERED: fentaNYL (PF) 50 MCG/ML 2 ML AMP ONE (07:39)
[2023-09-29] MEDS ORDERED: SUCCINYLCHOLINE CHLORIDE 200 MG/10 ML VIAL IV ONE (07:39)
[2023-09-29] MEDS ORDERED: BUPIVACAINE (PF) 0.25% 30 ML VIAL SQ ONE ×2 (08:19)
[2023-09-29] MEDS ORDERED: LACTATED RINGERS 1,000 ML IV ONE (11:41)
[2023-09-29] MEDS ORDERED: POTASSIUM CHLORIDE 10 MEQ in WATER FOR INJECTION 1 100ML.BAG IVPB ONE (12:20)
[2023-09-29 13:33] LABS: Allen Test Performed? Yes
[2023-09-29 13:41] LABS: ABG HCO3 19 mmol/L (21-25); ABG Oxygen Saturation 98.6 % (94-97); ABG PCO2 45 mmHg (35-45); ABG PH 7.23 (7.35-7.45); ABG PO2 229 mmHg (83-108)
--- NOTE | 2023-09-29 13:42 | XR ---
EXAMINATION TYPE: XR chest 1V portable DATE OF EXAM: 09/29/2023 COMPARISON: 08/12/2023 HISTORY: Postop TECHNIQUE: Single frontal view of the chest is obtained. FINDINGS: Volume loss on the right with chest tube and no sizable pneumothorax. Bilateral areas of d iscoid atelectasis. No sizable pleural effusion. Subcutaneous emphysema on the right likely postsurgi chioma. Previous surgery overlying the cervical spine. Limited inspiration. Heart size normal. IMPRESSION: 1. Postoperative change with bilateral areas of discoid atelectasis. No pneumothorax.
[2023-09-29 13:44] LABS: HCT 35.4 % (34.0-46.0); HGB 12.1 gm/dL (11.4-16.0); MCH 32.3 pg (25.0-35.0); MCHC 34.2 g/dL (31.0-37.0); Mean Platelet Volume 10.2; Platelet Count 273 k/uL (150-450); RBC 3.74 m/uL (3.80-5.40); RDW 13.7 % (11.5-15.5); WBC 13.4 k/uL (3.8-10.6)
[2023-09-29 13:45] LABS: MCV 94.5 fL (80.0-100.0)
[2023-09-29 13:52] LABS: ABG Base Excess -8.9 mmol/L
[2023-09-29 13:55] LABS: Glucose,Whole Blood 297 mg/dL (70-110)
[2023-09-29] MEDS ORDERED: IPRATROPIUM-ALBUTEROL 3 ML NEB IH PRN (14:05)
[2023-09-29] MEDS ORDERED: ONDANSETRON 4 MG/2 ML VIAL IVP PRN (14:05)
[2023-09-29] MEDS ORDERED: traMADol 50 MG TAB PO PRN (14:05)
[2023-09-29] MEDS ORDERED: DEXTROSE 50% SYRINGE 50 ML IVP PRN ×2 (14:05)
[2023-09-29] MEDS ORDERED: ACETAMINOPHEN TAB 325 MG TAB PO PRN (14:05)
[2023-09-29] MEDS ORDERED: SODIUM CHLORIDE 0.9% 1,000 ML IV SCH (14:05)
[2023-09-29] MEDS ORDERED: bisacodyL 10 MG SUPP RECTAL PRN (14:05)
[2023-09-29] MEDS ORDERED: FUROSEMIDE 10 MG/ML 4 ML VIAL IV STA (14:39)
[2023-09-29 15:20] LABS: Glucose,Whole Blood 351 mg/dL (70-110)
[2023-09-29] MEDS: POTASSIUM CHLORIDE 10 MEQ in WATER FOR INJECTION 1 100ML.BAG IVPB SCH ×2 (15:31→15:45)
--- NOTE | 2023-09-29 15:40 | P.CNPUL ---
History of Present Illness Consult date: 09/29/23 Requesting physician: Sreekanth James Reason for consult: COPD, other (Status post right lower lobectomy) Chief complaint: Recently diagnosed right lower lobe adenocarcinoma, stage I History of present illness: This is a 58-year-old female known history of multiple medical problems including COPD, tobacco dependence syndrome, type 1 diabetes, hypothyroidism, MS, patient was recently evaluated by Dr. Garcia for a 2.6 cm nodule in the right lower lobe with abnormal PET scan. Patient was aware of the mass going back to May when she had DKA and sepsis. Patient was made aware of the right lower lobe nodule, patient was seen again by Dr. Garcia on outpatient basis and she underwent robotic ion bronchoscopy, And the patient was diagnosed as having adenocarcinoma of the right lower lobe. Patient had a [id number]-[id number] smoking history and continues to smoke on 10 recently. Patient also had intermittent episodes of hemoptysis, cough and wheezing. And she her weight has been fluctuating. Patient was referred to Dr. James who performed right lower lobectomy today, postoperatively I saw the patient while in the recovery room, apparently patient had intraoperative hypotension and metabolic acidosis requiring multiple amps of bicarbonate given for her acidosis. In the recovery room, patient was still marginal, ABG on nasal cannula showed a pO2 of 229 pCO2 45 pH of 7.23 hence I recommended admitting the patient to the ICU for further and close monitoring. Patient was noted to be slightly lethargic, but arousable, and followed simple instructions. Chest x-ray showed postoperative changes and minimal atelectasis, right-sided chest tube is noted there was no evidence of pneumothorax. During my evaluation in the recovery room, patient had blood pressure 121/60, she was on 3 L nasal cannula with O2 saturation 100% on a did not seem to be in any form of distress Review of Systems ROS unobtainable: due to mental status (Patient was examined in the recovery room she was still lethargic, and could not get an adequate review of systems bu t her review of system was reviewed from previous evaluation by Dr. Mac and Dr. James.) Past Medical History Past Medical History: COPD, Diabetes Mellitus, Eye Disorder, GERD/Reflux, Hypertension, Musculoskeletal Disorder, Osteoarthritis (OA), Thyroid Disorder Additional Past Medical History / Comment(s): COPD,seizure disorder secondary to hypoglycemia last one 3-4 months, hypothyroid, multiple sclerosis, diabetic peripheral poly neuropathy, optic neuritis, decreased vision in the eyes,; this problem, restless leg syndrome, colon polyps, anxiety depression. OA, efren in Rt ankle. Hx prob w/ cervical discs. Vaccinated for COVID 19 History of Any Multi-Drug Resistant Organisms: None Reported Past Surgical History: Adenoidectomy, Appendectomy, Orthopedic Surgery, [place] ctomy, Tubal Ligation Additional Past Surgical History / Comment(s): Laparoscopies. Pain procedures., cataract, neck fusion, rt ankle fusion, Past Anesthesia/Blood Transfusion Reactions: Motion Sickness, Postoperative Nausea & Vomiting (PONV) Additional Past Anesthesia/Blood Transfusion Reaction / Comment(s): no blood transfusions Smoking Status: Former smoker - Past Family History Mother Family Medical History: Myocardial Infarction ([place]) Additional Family Medical History / Comment(s): Mother at age 48 from coronary artery disease. Patient does not have any brothers and sisters. She has one adult son with no major medical problems. Medications and Allergies Home Medications Medication Instructions Recorded Confirmed Type Levothyroxine Sodium [Synthroid] 125 mcg PO DAILY 03/10/22 09/27/23 History Insulin Glargine,Hum.rec.anlog 18 unit SQ DAILY 07/28/22 09/27/23 History [Lantus Solostar Pen] Montelukast [Singulair] 10 mg PO DAILY 07/28/22 09/27/23 History Venlafaxine HCl [Effexor XR] 150 mg PO DAILY 12/11/22 09/27/23 History Cyclobenzaprine [Flexeril] 10 mg PO TID PRN #60 tab 12/17/22 09/27/23 Rx Levothyroxine Sodium [Synthroid] 25 mcg PO DAILY 03/17/23 09/27/23 History rOPINIRole HCL [Requip] 1 mg PO HS 03/17/23 09/27/23 History Famotidine [Pepcid] 20 mg PO HS #30 tab 07/01/23 09/27/23 Rx Gabapentin [Neurontin] 800 mg PO BID #0 07/01/23 09/27/23 Rx Albuterol Sulfate [Albuterol 1 puff PO Q4-6H PRN 09/27/23 09/27/23 History Sulfate Hfa] Insulin NPH Hum/Reg Insulin Hm 16 units SQ BID 09/27/23 09/27/23 History [Novolin 70-30 Flexpen] busPIRone HCL 5 mg PO BID 09/27/23 09/27/23 History Allergies Allergy/AdvReac Type Severity Reaction Status Date / Time No Known Allergies Allergy Verified 09/29/23 06:17 Physical Exam Vitals: Vital Signs Temp Pulse Pulse Resp BP BP BP 09/29/23 14:46 78 16 121/60 09/29/23 14:30 75 16 98/56 108/65 09/29/23 14:15 75 16 98/50 110/68 09/29/23 14:00 77 16 109/56 102/50 09/29/23 13:45 77 16 133/70 158/69 09/29/23 13:30 76 16 122/60 148/66 09/29/23 13:10 98.2 F 77 16 115/56 115/56 09/29/23 07:15 74 16 107/65 09/29/23 06:55 97.7 F 75 16 134/63 Pulse Ox 09/29/23 14:46 100 09/29/23 14:30 100 09/29/23 14:15 100 09/29/23 14:00 100 09/29/23 13:45 100 09/29/23 13:30 100 09/29/23 13:10 100 09/29/23 07:15 98 09/29/23 06:55 98 Intake and Output 09/29/23 09/29/23 09/29/23 06:59 14:59 22:59 Intake Total 200 1637 Output Total 605 Balance 200 1032 Intake: IV 200 1350 Blood Product 287 Rc Pheresis 2 As3 Unit 287 [id number] Output: Urine 505 Estimated Blood Loss 100 Other: Weight 68.1 kg Physical Exam: Revealed a 58-year-old female in no distress, on 3 L nasal cannula lethargic but arousable Head: Atraumatic, normocephalic. HEENT:[Neck is supple.] [No neck masses.] [No thyromegaly.] [No JVD.] Chest: [Diminished breath sounds at the bases no crackles or rhonchi or wheezes, right-sided chest tube is noted Cardiac Exam: [Normal S1 and S2, no S3 gallop, no murmur.] Abdomen: [Soft, nontender, no megaly, no rebound, no guarding, normal bowel s ounds.] Extremities: [No clubbing, no edema, no cyanosis.] Neurological Exam: Patient is lethargic, arousable and follows simple instructions. Psychiatric: Could not be assessed. Skin: No rashes. Results - Laboratory Findings CBC and BMP: 09/29/23 13:20 09/29/23 06:37 ABG ABG pH 7.23 (7.35-7.45) L 09/29/23 13:22 ABG pCO2 45 mmHg (35-45) 09/29/23 13:22 ABG pO2 229 mmHg (83-108) H 09/29/23 13:22 ABG O2 Saturation 98.6 % (94-97) H 09/29/23 13:22 Abnormal lab findings: Abnormal Labs 09/27/23 09/29/23 09/29/23 14:15 06:37 06:41 WBC RBC ABG pH ABG pO2 ABG HCO3 ABG O2 Saturation Chloride 113 H Carbon Dioxide 16 L BUN 27 H Creatinine 1.16 H Glucose 174 H POC Glucose (mg/dL) 158 H Crossmatch See Detail 09/29/23 09/29/23 09/29/23 13:20 13:22 13:53 WBC 13.4 H RBC 3.74 L ABG pH 7.23 L ABG pO2 229 H ABG HCO3 19 L ABG O2 Saturation 98.6 H Chloride Carbon Dioxide BUN Creatinine Glucose POC Glucose (mg/dL) 297 H Crossmatch 09/29/23 15:18 WBC RBC ABG pH ABG pO2 ABG HCO3 ABG O2 Saturation Chloride Carbon Dioxide BUN Creatinine Glucose POC Glucose (mg/dL) 351 H Crossmatch - Diagnostic Findings Chest x-ray: image reviewed (As noted in HPI) Assessment and Plan Assessment: Impression: Right lung adenocarcinoma stage I Status post right lower lobectomy postoperative day #0 Postoperative atelectasis, expected Combined metabolic and respiratory acidosis, related to hypotension and sedation patient did receive Luis Alberto-Synephrine while in the OR, expected History of underlying COPD, mild. Type 1 diabetes History of seizures secondary to hypoglycemia History of multiple sclerosis Peripheral diabetic neuropathy History of optic neuritis and MS History of restless leg syndrome history of colonic polyps History of gram-negative bacteremia and sepsis Benign essential hypertension History of cervical degenerative disc disease and previous cervical decompressi on with discectomy and fusion Ex-smoker recommendation: She was seen and evaluated in the recovery room Will admit the patient to the ICU overnight Resume home meds Close monitoring of blood sugars, based on insulin drip if necessary. Continue IV fluids Incentive spirometry Bronchodilators Daily x-rays of the chest and follow on chest tube GI and DVT prophylaxis Early ambulation We will continue to follow Time with Patient: Greater than 30
[2023-09-29] MEDS: HEPARIN SODIUM,PORCINE 5,000 UNIT/ML 1 ML VIAL SQ SCH (15:49)
[2023-09-29] MEDS ORDERED: fentaNYL (PF) 50 MCG/ML 2 ML AMP IVP PRN (15:52)
[2023-09-29] MEDS ORDERED: HYDROcodone/APAP 5-325MG 1 EACH TAB PO PRN (15:52)
[2023-09-29] MEDS: INSULIN ASPART (NovoLOG) 100 UNIT/ML VIAL SQ SCH ×2 (16:09→20:59)
[2023-09-29] MEDS: HYDROcodone/APAP 10-325MG 1 EACH TAB PO PRN ×2 (16:09→21:03)
[2023-09-29] MEDS: INSULN ASP PRT/INSULIN ASPART 100 UNIT/ML 10 ML VIAL SQ SCH (16:09)
[2023-09-29] MEDS: IPRATROPIUM-ALBUTEROL 3 ML NEB IH SCH ×2 (17:37→20:40)
[2023-09-29 17:44] LABS: Glucose,Whole Blood 282 mg/dL (70-110)
[2023-09-29 19:57] LABS: Glucose,Whole Blood 160 mg/dL (70-110)
[2023-09-29 20:59] LABS: Glucose,Whole Blood 130 mg/dL (70-110)
[2023-09-29] MEDS: FAMOTIDINE 20 MG TAB PO SCH (20:59)
[2023-09-29] MEDS: GABAPENTIN 400 MG CAP PO SCH ×2 (20:59→23:40)
[2023-09-29] MEDS: busPIRone HCl 5 MG TAB PO SCH (20:59)
[2023-09-29] MEDS: CYCLOBENZAPRINE 10 MG TAB PO PRN (21:06)
--- NOTE | 2023-09-29 21:25 | P.CONS ---
History of Present Illness - Reason for Consult Consult date: 09/29/23 Medical management Requesting physician: Sreekanth James - Chief Complaint Right lung surgery - History of Present Illness This is a 58-year-old patient who follows with Dr. Pino. Chronic stable medical conditions include GERD, osteoarthritis, seizure disorder, hypothyroid, MS, diabetic peripheral neuropathy, optic neuritis, decreased vision in the eyes, restless leg syndrome, anxiety depression. . evaluated by Dr. Garcia for a 2.6 cm nodule in the right lower lobe with abnormal PET scan. by Dr. Garcia on outpatient basis and she underwent robotic ion bronchoscopy,diagnosed as having adenocarcinoma of the right lower lobe. Patient had a [id number]-iiza smoking history and continues to smoke on 10 recently. Patient also had intermittent episodes of hemoptysis, cough and wheezing. And she her weight has been fluctuating. Dr. James - performed right lower lobectomy today, postoperatively patient had intraoperative hypotension and metabolic acidosis requiring multiple amps of bicarbonate given for her acidosis. In the recovery room, patient was still marginal, ABG on nasal cannula showed a pO2 of 229 pCO2 45 pH of 7.23 recommended admitting the patient to the ICU. right-sided chest tube is noted there was no evidence of pneumothorax. This evening patient's ICU. Able to hold a conversation. Did eat some. Some pain at the operative site. Review of systems: GEN.: Tired EYES: None HEENT: None NECK: None RESPIRATORY: Shortness of breath CARDIOVASCULAR: None GASTROINTESTINAL: None GENITOURINARY: None MUSCULOSKELETAL: None LYMPHATICS: None HEMATOLOGICAL: None PSYCHIATRY: None NEUROLOGICAL: None Past medical history to include: COPD, diabetes, GERD, osteoarthritis, seizure disorder, hypothyroid, multiple sclerosis, diabetic peripheral neuropathy, optic neuritis, decreased vision in the eyes,;, restless leg syndrome, colon polyps, anxiety depression Social history: started smoking in 1978. Half a pack a day. More so in the past. Stop smoking May 2022. She was drinking heavy alcohol up to about 2017. Has a roommate Aubree. Occasionally does marijuana. Does use a cane Physical examination: VITAL SIGNS: Afebrile, 71, 15, 133/91, 99% on nasal cannula GENERAL: Reclining in bed, but tired EYES: Pupils equal. Conjunctiva normal. HEENT: External appearance of nose and ears normal, oral cavity grossly normal. NECK: JVD not raised; masses not palpable. HEART: First and second heart sounds are normal; no edema. LUNGS: Respiratory rate increased; diminished breath sounds, right-sided chest tube ABDOMEN: Soft, nontender, liver spleen not palpable, no masses palpable. PSYCH: [Alert and oriented x3; mood and affect anxious LYMPHATICS: No lymph nodes palpable neck and axilla NEUROLOGICAL: Cranial nerves grossly intact. Poor sensation grossly intact INVESTIGATIONS, reviewed in the clinical context: September 29: White count 13.4 hemoglobin 12.1 platelets 273 ABG: PH 7.23 pO2 229 pCO2 45 Sodium 139 potassium 4.2 BUN 27 creatinine 1.16 bicarbonate 16 Assessment and plan: -adeno carcinoma of the right lower lobe. Right lower lobe lobectomy by Dr. Kasey James Right-sided chest tube Outpatient be followed by Dr. Garcia for a right lower lobe speculated not to 2.6 x 1.8 cm. -Metabolic and respiratory acidosis, from sedation. She received 3 A of IV bicarbonate. -COPD in a smoker Albuterol when necessary. Symbicort -Diabetes mellitus type 2, chronically on insulin. Levemir. NovoLog Mix 70/30. Accu-Cheks and sliding scale. -Diabetic peripheral neuropathy Neurontin 800 mg twice a day. -Hypothyroid Synthroid 150 g -GERD Pepcid -Restless leg syndrome requip 0.5 mg every daily at bedtime -Anxiety depression Effexor XR Discussed with patient. Follow Accu-Cheks. Subcu heparin. Follow labs closely. Incentive spirometry. Thank you Dr. James Past Medical History Past Medical History: COPD, Diabetes Mellitus, Eye Disorder, GERD/Reflux, Hypertension, Musculoskeletal Disorder, Osteoarthritis (OA), Thyroid Disorder Additional Past Medical History / Comment(s): COPD,seizure disorder secondary to hypoglycemia last one 3-4 months, hypothyroid, multiple sclerosis, diabetic peripheral poly neuropathy, optic neuritis, decreased vision in the eyes,; this problem, restless leg syndrome, colon polyps, anxiety depression. OA, efren in Rt ankle. Hx prob w/ cervical discs. Vaccinated for COVID 19 History of Any Multi-Drug Resistant Organisms: None Reported Past Surgical History: Adenoidectomy, Appendectomy, Orthopedic Surgery, Tonsillectomy, Tubal Ligation Additional Past Surgical History / Comment(s): Laparoscopies. Pain procedures., cataract, neck fusion, rt ankle fusion, Past Anesthesia/Blood Transfusion Reactions: Motion Sickness, Postoperative Nausea & Vomiting (PONV) Additional Past Anesthesia/Blood Transfusion Reaction / Comm: no blood transfusions Smoking Status: Former smoker - Past Family History Mother Family Medical History: Myocardial Infarction ([place]) Additional Family Medical History / Comment(s): Mother at age 48 from coronary artery disease. Patient does not have any brothers and sisters. She has one adult son with no major medical problems. Medications and Allergies Home Medications Medication Instructions Recorded Confirmed Type Levothyroxine Sodium [Synthroid] 125 mcg PO DAILY 03/10/22 09/27/23 History Insulin Glargine,Hum.rec.anlog 18 unit SQ DAILY 07/28/22 09/27/23 History [Lantus Solostar Pen] Montelukast [Singulair] 10 mg PO DAILY 07/28/22 09/27/23 History Venlafaxine HCl [Effexor XR] 150 mg PO DAILY 12/11/22 09/27/23 History Cyclobenzaprine [Flexeril] 10 mg PO TID PRN #60 tab 12/17/22 09/27/23 Rx Levothyroxine Sodium [Synthroid] 25 mcg PO DAILY 03/17/23 09/27/23 History rOPINIRole HCL [Requip] 1 mg PO HS 03/17/23 09/27/23 History Famotidine [Pepcid] 20 mg PO HS #30 tab 07/01/23 09/27/23 Rx Gabapentin [Neurontin] 800 mg PO BID #0 07/01/23 09/27/23 Rx Albuterol Sulfate [Albuterol 1 puff PO Q4-6H PRN 09/27/23 09/27/23 History Sulfate Hfa] Insulin NPH Hum/Reg Insulin Hm 16 units SQ BID 09/27/23 09/27/23 History [Novolin 70-30 Flexpen] busPIRone HCL 5 mg PO BID 09/27/23 09/27/23 History Allergies Allergy/AdvReac Type Severity Reaction Status Date / Time No Known Allergies Allergy Verified 09/29/23 06:17 Physical Exam Vitals: Vital Signs Temp Pulse Pulse Pulse Resp BP BP 09/29/23 20:52 75 09/29/23 20:43 70 09/29/23 19:00 71 15 133/91 09/29/23 18:00 70 13 121/69 09/29/23 17:30 75 15 09/29/23 17:20 75 19 138/75 09/29/23 17:10 76 13 09/29/23 17:00 80 15 09/29/23 16:50 78 19 119/80 09/29/23 16:40 75 14 119/80 09/29/23 16:30 75 15 09/29/23 16:20 74 14 139/77 09/29/23 16:10 76 14 139/77 09/29/23 16:00 98.5 F 77 15 143/71 09/29/23 15:50 77 17 09/29/23 15:40 77 12 09/29/23 15:30 76 14 09/29/23 15:20 78 15 09/29/23 15:10 09/29/23 14:46 78 16 121/60 09/29/23 14:30 75 16 98/56 09/29/23 14:15 75 16 98/50 09/29/23 14:00 77 16 109/56 09/29/23 13:45 77 16 133/70 09/29/23 13:30 76 16 122/60 09/29/23 13:10 98.2 F 77 16 115/56 09/29/23 07:15 74 16 09/29/23 06:55 97.7 F 75 16 BP BP Pulse Ox 09/29/23 20:52 09/29/23 20:43 09/29/23 19:00 99 09/29/23 18:00 98 09/29/23 17:30 98 09/29/23 17:20 98 09/29/23 17:10 99 09/29/23 17:00 98 09/29/23 16:50 99 09/29/23 16:40 99 09/29/23 16:30 98 09/29/23 16:20 98 09/29/23 16:10 98 09/29/23 16:00 98 09/29/23 15:50 96 09/29/23 15:40 97 09/29/23 15:30 96 09/29/23 15:20 97 09/29/23 15:10 90 L 09/29/23 14:46 100 09/29/23 14:30 108/65 100 09/29/23 14:15 110/68 100 09/29/23 14:00 102/50 100 09/29/23 13:45 158/69 100 09/29/23 13:30 148/66 100 09/29/23 13:10 115/56 100 09/29/23 07:15 107/65 98 09/29/23 06:55 134/63 98 Intake and Output 09/29/23 09/29/23 09/29/23 06:59 14:59 22:59 Intake Total 200 1637 250 Output Total 605 615 Balance 200 1032 -365 Intake: IV 200 1350 Intake, IV Titration 250 Amount Sodium Chloride 0.9% 1, 200 000 ml @ 50 mls/hr IV . Q20H [facility] Rx#:[id number] ceFAZolin 2 gm In Sodium 50 Chloride 0.9% 50 ml @ 100 mls/hr IVPB Q8HR [facility] Rx# :[id number] Blood Product 287 Rc Pheresis 2 As3 Unit 287 [id number] Output: Drainage 120 Right Chest 120 Urine 505 495 Estimated Blood Loss 100 Other: Voiding Method Indwelling Catheter Weight 68.1 kg 68.1 kg ABP, PAP, CO, CI - Last 8 Hours Arterial Blood Pressure 100/55 Arterial Blood Pressure 132/54 Arterial Blood Pressure 120/65 Arterial Blood Pressure 97/66 Arterial Blood Pressure 113/93 Arterial Blood Pressure 123/63 Arterial Blood Pressure 92/62 Arterial Blood Pressure 95/67 Arterial Blood Pressure 119/60 Arterial Blood Pressure 100/66 Arterial Blood Pressure 130/57 Arterial Blood Pressure 118/56 Arterial Blood Pressure 92/67 Arterial Blood Pressure 86/60 Arterial Blood Pressure 139/79 Results CBC & Chem 7: 09/29/23 13:20 09/29/23 06:37 Labs: Abnormal Lab Results - Last 24 Hours (Table) 09/27/23 09/29/23 09/29/23 Range/Units 14:15 06:37 06:41 WBC (3.8-10.6) k/uL RBC (3.80-5.40) m/uL ABG pH (7.35-7.45) ABG pO2 (83-108) mmHg ABG HCO3 (21-25) mmol/L ABG O2 Saturation (94-97) % Chloride 113 H (98-107) mmol/L Carbon Dioxide 16 L (22-30) mmol/L BUN 27 H (7-17) mg/dL Creatinine 1.16 H (0.52-1.04) mg/dL Glucose 174 H (74-99) mg/dL POC Glucose (mg/dL) 158 H (70-110) mg/dL Crossmatch See Detail 09/29/23 09/29/23 09/29/23 Range/Units 13:20 13:22 13:53 WBC 13.4 H (3.8-10.6) k/uL RBC 3.74 L (3.80-5.40) m/uL ABG pH 7.23 L (7.35-7.45) ABG pO2 229 H (83-108) mmHg ABG HCO3 19 L (21-25) mmol/L ABG O2 Saturation 98.6 H (94-97) % Chloride (98-107) mmol/L Carbon Dioxide (22-30) mmol/L BUN (7-17) mg/dL Creatinine (0.52-1.04) mg/dL Glucose (74-99) mg/dL POC Glucose (mg/dL) 297 H (70-110) mg/dL Crossmatch 09/29/23 09/29/23 09/29/23 Range/Units 15:18 17:42 19:56 WBC (3.8-10.6) k/uL RBC (3.80-5.40) m/uL ABG pH (7.35-7.45) ABG pO2 (83-108) mmHg ABG HCO3 (21-25) mmol/L ABG O2 Saturation (94-97) % Chloride (98-107) mmol/L Carbon Dioxide (22-30) mmol/L BUN (7-17) mg/dL Creatinine (0.52-1.04) mg/dL Glucose (74-99) mg/dL POC Glucose (mg/dL) 351 H 282 H 160 H (70-110) mg/dL Crossmatch 09/29/23 Range/Units 20:57 WBC (3.8-10.6) k/uL RBC (3.80-5.40) m/uL ABG pH (7.35-7.45) ABG pO2 (83-108) mmHg ABG HCO3 (21-25) mmol/L ABG O2 Saturation (94-97) % Chloride (98-107) mmol/L Carbon Dioxide (22-30) mmol/L BUN (7-17) mg/dL Creatinine (0.52-1.04) mg/dL Glucose (74-99) mg/dL POC Glucose (mg/dL) 130 H (70-110) mg/dL Crossmatch
[2023-09-30] MEDS: HEPARIN SODIUM,PORCINE 5,000 UNIT/ML 1 ML VIAL SQ SCH ×4 (00:12→23:00)
[2023-09-30] MEDS: HYDROcodone/APAP 10-325MG 1 EACH TAB PO PRN ×3 (01:39→12:05)
[2023-09-30] MEDS: CYCLOBENZAPRINE 10 MG TAB PO PRN ×3 (05:21→19:42)
[2023-09-30] MEDS: LEVOTHYROXINE 125 MCG TAB PO SCH (05:29)
[2023-09-30] MEDS: LEVOTHYROXINE 25 MCG TAB PO SCH (05:32)
[2023-09-30 06:13] LABS: Basophils % (A) 0 %; Eosinophils % (A) 0 %; HCT 36.1 % (34.0-46.0); HGB 12.2 gm/dL (11.4-16.0); Lymphocytes % (A) 20 %; MCH 31.9 pg (25.0-35.0); MCHC 33.7 g/dL (31.0-37.0); MCV 94.8 fL (80.0-100.0); Mean Platelet Volume 10.7; Monocytes # (A) 0.6 k/uL (0-1.0); Monocytes % (A) 6 %; Neutrophils # (A) 7.4 k/uL (1.3-7.7); Neutrophils % (A) 72 %; Platelet Count 291 k/uL (150-450); RBC 3.81 m/uL (3.80-5.40); RDW 13.9 % (11.5-15.5); WBC 10.2 k/uL (3.8-10.6)
[2023-09-30 06:58] LABS: Glucose,Whole Blood 103 mg/dL (70-110)
[2023-09-30] MEDS ORDERED: INSULIN DETEMIR (LEVEMIR) 100 UNIT/ML SYR SQ SCH (07:00)
[2023-09-30] MEDS: INSULN ASP PRT/INSULIN ASPART 100 UNIT/ML 10 ML VIAL SQ SCH ×2 (07:03→16:44)
[2023-09-30] MEDS: INSULIN ASPART (NovoLOG) 100 UNIT/ML VIAL SQ SCH ×4 (07:03→19:50)
--- NOTE | 2023-09-30 07:55 | XR ---
EXAMINATION TYPE: XR chest 1V DATE OF EXAM: 09/30/2023 COMPARISON: 09/29/2023 INDICATION: Postlobectomy TECHNIQUE: Single frontal view of the chest is obtained. FINDINGS: The heart size is normal. The pulmonary vasculature is normal. There is elevation of the right diaphragm. There is diminishing atelectasis along the minor fissure. Right side chest tube remains present. Minimal apical pneumothorax is evident IMPRESSION: 1. There may be some minimal apical pneumothorax present. 2. Improving atelectasis right lower lung field. 3. Chest tube remains present.
[2023-09-30] MEDS: IPRATROPIUM-ALBUTEROL 3 ML NEB IH SCH ×4 (08:08→20:00)
[2023-09-30 08:09] LABS: African American GFR (CKD) 66 (>60 ml/min/1.73 sqM); Anion Gap 8 mmol/L; Blood Urea Nitrogen 23 mg/dL (7-17); Calcium 7.9 mg/dL (8.4-10.2); Carbon Dioxide 22 mmol/L (22-30); Chloride 109 mmol/L (98-107); Glucose 90 mg/dL (74-99); Non-African American GFR(CKD) 57 (>60 ml/min/1.73 sqM); Potassium 3.1 mmol/L (3.5-5.1); Sodium 139 mmol/L (137-145)
[2023-09-30] MEDS ORDERED: Potassium Replacement Protocol 1 EACH MISC MISCELLANE PRN (08:17)
[2023-09-30] MEDS: VENLAFAXINE HCL ER 150 MG CAP PO SCH (08:34)
[2023-09-30] MEDS: GABAPENTIN 400 MG CAP PO SCH ×2 (08:34→20:40)
[2023-09-30] MEDS: POTASSIUM CHLORIDE ER 20 MEQ TAB.ER PO SCH ×2 (08:34→12:00)
[2023-09-30] MEDS: MONTELUKAST 10 MG TAB PO SCH (08:34)
[2023-09-30] MEDS: busPIRone HCl 5 MG TAB PO SCH ×2 (08:35→19:42)
[2023-09-30] MEDS: IBUPROFEN 600 MG TAB PO SCH ×4 (08:35→22:59)
--- NOTE | 2023-09-30 08:37 | P.PN ---
Subjective Progress Note Date: 09/30/23 Principal diagnosis: Right lower lobe 2.6 cm nodule, adenocarcinoma, stage I. Past medical history significant for hypothyroidism, COPD with a preoperative FEV1 84% predicted valu e and a DLCO 88% of predicted value, MS, chronic tobacco dependence, diabetes mellitus type 1 with diabetic neuropathy, GERD, restless leg syndrome, anxiety, depression and osteoarthritis. POD #1 robotic-assisted thoracoscopic right lower lobectomy with mediastinal lymph node dissection The patient was seen and examined in follow-up today 09/30/2023 at her bedside in the intensive care unit. She is currently sitting up to the bedside chair, is awake, alert, oriented 3 and is in no acute apparent distress. She denies any complaints of shortness of breath at this time, although was complaining of some surgical type pain to her right chest tube insertion site, currently rating her pain 10 out of 10 on the pain scale. She was just medicated with [place] according to the patient and the nurse. Oxygen saturations are 96% on room air and she is achieving 500 mL on her incentive spirometry with encouragement. Right pleural chest tube remains in place on waterseal. No air leak is present. Draining thin serosanguineous drainage with 120 mL output in the last 8 hours and 350 mL output in the last 24 hours. Bedside telemetry showing normal sinus rhythm heart rate 78 BPM. Laboratory and chest x-ray results reviewed. Objective - Vital Signs Vital signs: Vital Signs Temp 99.2 F 09/30/23 06:00 Pulse 77 09/30/23 07:00 Resp 36 H 09/30/23 07:00 BP 135/64 09/30/23 07:00 Pulse Ox 99 09/30/23 07:00 FiO2 Intake & Output 09/29/23 09/30/23 09/30/23 18:59 06:59 18:59 Intake Total 1837 650 Output Total 1025 585 50 Balance 812 65 -50 Weight 68.1 kg 72.2 kg Intake: IV 1350 550 Sodium Chloride 0.9% 1, 550 000 ml @ 50 mls/hr IV . Q20H [facility] Rx#:[id number] Intake, IV Titration 200 100 Amount Sodium Chloride 0.9% 1, 150 50 000 ml @ 50 mls/hr IV . Q20H [facility] Rx#:[id number] ceFAZolin 2 gm In Sodium 50 50 Chloride 0.9% 50 ml @ 100 mls/hr IVPB Q8HR [facility] Rx# :[id number] Blood Product 287 Rc Pheresis 2 As3 Unit 287 [id number] Output: Drainage 190 50 Right Chest 190 50 Urine 925 395 Estimated Blood Loss 100 Other: Voiding Method Indwelling Catheter Indwelling Catheter # Voids 0 0 ABP, PAP, CO, CI - Last Documented Arterial Blood Pressure 107/42 - Exam CONSTITUTIONAL: Appears uncomfortable due to pain to her right chest tube insertion site, cooperative, no acute distress RESPIRATORY: Lungs sounds diminished throughout with few scattered crackles. Respirations are symmetrical, nonlabored. Currently on room air with oxygen saturation 96%. Able to achieve 500 mL on incentive spirometry. Strong cough. CARDIOVASCULAR: S1, S2 present. Regular rate and rhythm, sinus rhythm on telemetry. Palpable peripheral pulses bilaterally. No edema present. No calf pain or tenderness noted. SCDs present. GASTROINTESTINAL: Abdomen soft, nontender, nondistended. Active bowel sounds present 4 quadrants. Tolerating diet. Passing flatus. GENITOURINARY: Continues to void clear, yellow urine INTEGUMENTARY: Skin is warm and dry with evidence of good perfusion. Right chest thoracic incisions well approximated and covered with dry intact dressing. NEUROLOGIC: Cranial nerves II through XII intact. No focal deficits. MUSKULOSKELETAL: Able to move all extremities, strength equal bilaterally, gait normal. PSYCHIATRIC: Alert and oriented to person place and time, appropriate affect, intact judgment and insight INVASIVE LINES AND TUBES: Right pleural chest tube present and is to waterseal, no air leak is present. Right pleural chest tube with 120 mL than serosanguineou s drainage overnight, 350 mL last 24 hours. - Allied health notes Allied health notes reviewed: nursing - Labs CBC & Chem 7: 09/30/23 05:27 09/29/23 06:37 Labs: Abnormal Lab Results - Last 24 Hours (Table) 09/27/23 09/29/23 09/29/23 Range/Units 14:15 13:20 13:22 WBC 13.4 H (3.8-10.6) k/uL RBC 3.74 L (3.80-5.40) m/uL ABG pH 7.23 L (7.35-7.45) ABG pO2 229 H (83-108) mmHg ABG HCO3 19 L (21-25) mmol/L ABG O2 Saturation 98.6 H (94-97) % POC Glucose (mg/dL) (70-110) mg/dL Crossmatch See Detail 09/29/23 09/29/23 09/29/23 Range/Units 13:53 15:18 17:42 WBC (3.8-10.6) k/uL RBC (3.80-5.40) m/uL ABG pH (7.35-7.45) ABG pO2 (83-108) mmHg ABG HCO3 (21-25) mmol/L ABG O2 Saturation (94-97) % POC Glucose (mg/dL) 297 H 351 H 282 H (70-110) mg/dL Crossmatch 09/29/23 09/29/23 Range/Units 19:56 20:57 WBC (3.8-10.6) k/uL RBC (3.80-5.40) m/uL ABG pH (7.35-7.45) ABG pO2 (83-108) mmHg ABG HCO3 (21-25) mmol/L ABG O2 Saturation (94-97) % POC Glucose (mg/dL) 160 H 130 H (70-110) mg/dL Crossmatch - Imaging and Cardiology Chest x-ray: report reviewed, image reviewed Assessment and Plan Assessment: Right lung nodule measuring 2.6 cm on computed tomography scan, adenocarcinoma, stage I, status post robotic assisted right lower lobectomy with mediastinal lymph node dissection COPD with a preoperative FEV1 184% of predicted value and a DLCO 88% of predicted value History of hypertension Hypothyroidism Diabetes mellitus type 1 with diabetic neuropathy Restless leg syndrome Anxiety Depression Multiple sclerosis Family history of coronary artery disease Chronic ongoing tobacco dependence, quit smoking around 3 weeks ago Osteoarthritis Plan: We will keep her right pleural chest tube in place to water seal, continue to record strict inaccurate I's and O's. Home meds restarted. Encourage incentive spirometry is 10 times every hour while awake. Bronchodilators/steroids per pulmonology Will monitor daily chest x-rays and labs. Saline lock IV fluids. Increase activity as tolerated. Out of bed for all meals. Physical and occupational therapy consulted. GI/DVT prophylaxis Pain control with current medication regimen. Start Motrin 600 mg by mouth 4 times a day for additional pain control. Replace electrolytes per protocol. Pathology results remain pending, will continue to follow. More recommendations to follow based on patient's clinical course. Time with Patient: Greater than 30
[2023-09-30 11:13] LABS: Glucose,Whole Blood 343 mg/dL (70-110)
--- NOTE | 2023-09-30 11:57 | P.PN ---
Subjective Progress Note Date: 09/30/23 Principal diagnosis: This is a 58-year-old female known history of multiple medical problems including COPD, tobacco dependence syndrome, type 1 diabetes, hypothyroidism, MS, patient was recently evaluated by Dr. Garcia for a 2.6 cm nodule in the right lower lobe with abnormal PET scan. Patient was aware of the mass going back to May when she had DKA and sepsis. Patient was made aware of the right lower lobe nodule, patient was seen again by Dr. Garcia on outpatient basis and she underwent robotic ion bronchoscopy, And the patient was diagnosed as having adenocarcinoma of the right lower lobe. Patient had a [id number] smoking history and continues to smoke on 10 recently. Patient also had intermittent episodes of hemoptysis, cough and wheezing. And she her weight has been fluctuating. Patient was referred to Dr. James who performed right lower lobectomy today, postoperatively I saw the patient while in the recovery room, apparently patient had intraoperative hypotension and metabolic acidosis requiring multiple amps of bicarbonate given for her acidosis. In the recovery room, patient was still marginal, ABG on nasal cannula showed a pO2 of 229 pCO2 45 pH of 7.23 hence I recommended admitting the patient to the ICU for further and close monitoring. Patient was noted to be slightly lethargic, but arousable, and followed simple instructions. Chest x-ray showed postoperative changes and minimal atelectasis, right-sided chest tube is noted there was no evidence of pneumothorax. During my evaluation in the recovery room, patient had blood pressure 121/60, she was on 3 L nasal cannula with O2 saturation 100% on a did not seem to be in any form of distress Patient was reevaluated today on 09/30/23, patient is in the ICU, but she will be an overflow, she is resting on 2 L nasal cannula and she was transitioned earlier to room air. Her chest tube is at waterseal, no air leak, there is a small tiny apical pneumothorax, patient is doing great, asymptomatic, no cough no wheezing no shortness of breath. Labs this morning are unremarkable in cluding CBC she did have a low potassium of 3.1 being addressed accordingly. Blood sugar was high at 343. Asked x-ray was reviewed and as noted earlier small tiny right apical pneumothorax Objective - Vital Signs Vital signs: Vital Signs Temp 98.2 F 09/30/23 08:00 Pulse 85 09/30/23 11:35 Resp 23 09/30/23 09:00 BP 132/68 09/30/23 09:00 Pulse Ox 98 09/30/23 09:00 FiO2 Intake & Output 09/29/23 09/30/23 09/30/23 18:59 06:59 18:59 Intake Total 1837 650 250 Output Total 1025 585 50 Balance 812 65 200 Weight 68.1 kg 72.2 kg Intake: IV 1350 550 Sodium Chloride 0.9% 1, 550 000 ml @ 50 mls/hr IV . Q20H [facility] Rx#:[id number] Intake, IV Titration 200 100 Amount Sodium Chloride 0.9% 1, 150 50 000 ml @ 50 mls/hr IV . Q20H [facility] Rx#:[id number] ceFAZolin 2 gm In Sodium 50 50 Chloride 0.9% 50 ml @ 100 mls/hr IVPB Q8HR [facility] Rx# :[id number] Oral 250 Blood Product 287 Rc Pheresis 2 As3 Unit 287 [id number] Output: Drainage 190 50 Right Chest 190 50 Urine 925 395 0 Estimated Blood Loss 100 Other: Voiding Method Indwelling Catheter Indwelling Catheter Indwelling Catheter # Voids 0 0 ABP, PAP, CO, CI - Last Documented Arterial Blood Pressure 107/42 - Exam Physical Exam: Revealed 58-year-old female in no distress Head: Atraumatic normocephalic HEENT:[Neck is supple.] [No neck masses.] [No thyromegaly.] [No JVD.] Chest: [Clear throughout, no crackles, no rhonchi, no wheezes.] Right-sided chest tube is noted, it is on water seal, and no evidence of air leak Cardiac Exam: [Normal S1 and S2, no S3 gallop, no murmur.] Abdomen: [Soft, nontender, no megaly, no rebound, no guarding, normal bowel sounds.] Extremities: [No clubbing, no edema, no cyanosis.] Neurological Exam: [No focal neurologic deficit.] Psychiatric: Normal mood, affect and normal mental status examination. Skin: Normal - Labs CBC & Chem 7: 09/30/23 05:27 09/30/23 05:27 Labs: Abnormal Lab Results - Last 24 Hours (Table) 09/27/23 09/29/23 09/29/23 Range/Units 14:15 13:20 13:22 WBC 13.4 H (3.8-10.6) k/uL RBC 3.74 L (3.80-5.40) m/uL ABG pH 7.23 L (7.35-7.45) ABG pO2 229 H (83-108) mmHg ABG HCO3 19 L (21-25) mmol/L ABG O2 Saturation 98.6 H (94-97) % Potassium (3.5-5.1) mmol/L Chloride (98-107) mmol/L BUN (7-17) mg/dL Creatinine (0.52-1.04) mg/dL POC Glucose (mg/dL) (70-110) mg/dL Calcium (8.4-10.2) mg/dL Crossmatch See Detail 09/29/23 09/29/23 09/29/23 Range/Units 13:53 15:18 17:42 WBC (3.8-10.6) k/uL RBC (3.80-5.40) m/uL ABG pH (7.35-7.45) ABG pO2 (83-108) mmHg ABG HCO3 (21-25) mmol/L ABG O2 Saturation (94-97) % Potassium (3.5-5.1) mmol/L Chloride (98-107) mmol/L BUN (7-17) mg/dL Creatinine (0.52-1.04) mg/dL POC Glucose (mg/dL) 297 H 351 H 282 H (70-110) mg/dL Calcium (8.4-10.2) mg/dL Crossmatch 09/29/23 09/29/23 09/30/23 Range/Units 19:56 20:57 05:27 WBC (3.8-10.6) k/uL RBC (3.80-5.40) m/uL ABG pH (7.35-7.45) ABG pO2 (83-108) mmHg ABG HCO3 (21-25) mmol/L ABG O2 Saturation (94-97) % Potassium 3.1 L (3.5-5.1) mmol/L Chloride 109 H (98-107) mmol/L BUN 23 H (7-17) mg/dL Creatinine 1.07 H (0.52-1.04) mg/dL POC Glucose (mg/dL) 160 H 130 H (70-110) mg/dL Calcium 7.9 L (8.4-10.2) mg/dL Crossmatch 09/30/23 Range/Units 11:11 WBC (3.8-10.6) k/uL RBC (3.80-5.40) m/uL ABG pH (7.35-7.45) ABG pO2 (83-108) mmHg ABG HCO3 (21-25) mmol/L ABG O2 Saturation (94-97) % Potassium (3.5-5.1) mmol/L Chloride (98-107) mmol/L BUN (7-17) mg/dL Creatinine (0.52-1.04) mg/dL POC Glucose (mg/dL) 343 H (70-110) mg/dL Calcium (8.4-10.2) mg/dL Crossmatch Assessment and Plan Assessment: Impression: Right lung adenocarcinoma stage I Status post right lower lobectomy postoperative day #1 Postoperative atelectasis, expected Postoperative tiny apical pneumothorax, expected History of underlying COPD, mild. Type 1 diabetes History of seizures secondary to hypoglycemia History of multiple sclerosis Peripheral diabetic neuropathy History of optic neuritis and MS History of restless leg syndrome history of colonic polyps History of gram-negative bacteremia and sepsis Benign essential hypertension History of cervical degenerative disc disease and previous cervical decompression with discectomy and fusion Ex-smoker recommendation: Continue chest tube to waterseal Transfer patient out of the ICU to a monitor bed on 3 S. Continue home meds Close monitoring of blood sugars, and address accordingly Continue IV fluids Incentive spirometry Bronchodilators Chest x-ray was reviewed Continue GI and DVT prophylaxis Ambulate We will continue to follow Time with Patient: Less than 30
--- NOTE | 2023-09-30 12:38 | XR ---
EXAMINATION TYPE: XR chest 1V portable DATE OF EXAM: 09/30/2023 COMPARISON: 09/30/2023 HISTORY: Chest tube fell out TECHNIQUE: Single frontal view of the chest is obtained. FINDINGS: There is approximate 10% right apical pneumothorax. No midline shift. Subcutaneous emphyse ma on the right noted. Limited inspiration. Heart size normal. Postsurgical changes overlying the cer vical spine. Hypertrophic degenerative changes of the vertebral column. IMPRESSION: 1. Approximate 10% right-sided pneumothorax.
[2023-09-30 13:51] LABS: Glucose,Whole Blood 409 mg/dL (70-110)
[2023-09-30 15:35] LABS: Glucose,Whole Blood 401 mg/dL (70-110)
--- NOTE | 2023-09-30 16:05 | P.OP ---
Date of Procedure: 09/29/23 Preoperative Diagnosis: Lung Cancer Postoperative Diagnosis: Same Procedure(s) Performed: 1. Bronchoscopy 2. Robotic assisted thorascopy with right lower lobectomy 3. Mediastinal lymph node dissection 4. Intercostal nerve block - 2 levels Anesthesia: SHANIA Surgeon: Sreekanth James Estimated Blood Loss (ml): 100 IV fluids (ml): 1,000 Pathology: other (RLL, LN Stations 7, 4R packet, 11R, 12RLL) Condition: stable Disposition: PACU Indications for Procedure: This patient is a 58 year-old female with a hx of Type I DM who presented to the hospital with DKA. Imaging reveals a lung nodule in the RLL. She underwent biopsy which revealed adenocarcinoma without any radiographic or EBUS evidence of metastatic disease. Lobectomy was recommended. Operative Findings: No discernable level 8,9 or 10 lymph nodes. Description of Procedure: The patient underwent radial arterial line placement in the pre-operative suite. She was brought back to the operating room and placed in the supine position. General anesthesia was induced and she was intubated with a 35F double lumen tube. Bronchoscopy was performed to confirm tube placement and for diagnostic purposes. There were no endobronchial lesions but she did have some secretions which were suctioned out. The patient was placed in the left lateral decubitus position and the right lung was isolated. The right chest was prepped and draped in the usual sterile fashion. I made a 1cm incision 8th intercostal space posterior axillary line and inserted the 8mm trocar. Entry into the chest was confirmed with the robotic thorascope. The chest was attempted to be insufflated to 10mm hg however the patient began losing tidal volumes and desaturated. The insufflation was released and the ETT checked with bronchoscopy. It appeared to be in good position. Two additional 12mm incisions were made in the 8th intercostal space 10cm away from this incision and 12mm trocars were placed. A fourth 8mm port was placed posteriorly in the 8th intercostal space. A 15mm assist port was placed in the 10th ICS anteriorly. 0.25% marcaine was used to perform intercostal nerve blocks at both levels. An attempt was made to insufflate the chest but unsuccessful with the p atient losing tidal volume and desaturating. The [email or web address] robot was docked. We began by taking down the inferior pulmonary ligament using the bipolar cautery. This dissection was carried up along the posterior mediastinal pleura. The level 7 node was harvested in the subcarinal region. The area under the azygous was examined and there was no discernable level 10 node. The level 4 packet above the azygous was harvested. Next, the anterior mediastinal pleura was divided and the inferior pulmonary vein was encircled with a vessel loop. At this point the fissure between the lower and middle lobe was approached and dissection with bipolar allowed visualization of the on-going pulmonary artery. At this point the anterior fissure was encircled using a vessel loop and divided using the robotic blue load stapler. Next, the on-going pulmonary artery was encircled and stapled using the robotic white load x 2. At this point the inferior pulmonary vein was divided using the robotic white load stapler. Next the bronchus to the lower lobe was bluntly encircled with a vessel loop and divided using the robotic green load stapler. Lastly there was a small branch of the on-going pulmonary artery noted to be going to the lower lobe. This was encircled and tied off using 0-silk x 3. It was divided using bipolar. The posterior fissure was then divided using serial firings of the robotic black lo ad stapler. The specimen was placed in a retrieval bag and removed from the chest. The robot was undocked and the right chest cavity was irrigated with saline. A 28F chest tube was placed via the anterior most incision and all incision were closed in layers of vicryl. Two lung ventilation was resumed and the patient was extubated.
[2023-09-30 16:21] LABS: Glucose,Whole Blood 407 mg/dL (70-110)
--- NOTE | 2023-09-30 17:42 | P.PN ---
Progress Note - Text Progress Note Date: 09/30/23 - Chief Complaint Right lung surgery - History of Present Illness This is a 58-year-old patient who follows with Dr. Pino. Chronic stable medical conditions include GERD, osteoarthritis, seizure disorder, hypothyroid, MS, diabetic peripheral neuropathy, optic neuritis, decreased vision in the eyes, restless leg syndrome, anxiety depression. . evaluated by Dr. Garcia for a 2.6 cm nodule in the right lower lobe with abnormal PET scan. by Dr. Garcia on outpatient basis and she underwent robotic ion bronchoscopy,diagnosed as having adenocarcinoma of the right lower lobe. Patient had a [id number] smoking history and continues to smoke on 10 recently. Patient also had intermittent episodes of hemoptysis, cough and wheezing. And she her weight has been fluctuating. Dr. James - performed right lower lobectomy today, postoperatively patient had intraoperative hypotension and metabolic acidosis requiring multiple amps of bicarbonate given for her acidosis. In the recovery room, patient was still marginal, ABG on nasal ca nnula showed a pO2 of 229 pCO2 45 pH of 7.23 recommended admitting the patient to the ICU. right-sided chest tube is noted there was no evidence of pneumothorax. This evening patient's ICU. Able to hold a conversation. Did eat some. Some pain at the operative site. September 30: Sitting up in a chair. In the ICU. And patient was moving in the bed apparently the chest tube came out. Breathing stable. Accu-Cheks every running high. Patient's serum acetone was checked came back negative. Patient's NovoLog 7030s being increased. Additional dosing will be admitted with lunchtime. Active Medications Acetaminophen (Acetaminophen Tab 325 Mg Tab) 650 mg PO Q4HR PRN PRN Reason: Mild to Moderate Pain (1 - 6) Hydrocodone Bitart/Acetaminophen (Hydrocodone/Apap 5-325mg 1 Each Tab) 1 each PO Q6HR PRN PRN Reason: Breakthrough Pain Albuterol/Ipratropium (Ipratropium-Albuterol 3 Ml Neb) 3 ml IH RT-Q1H PRN PRN Reason: Shortness Of Breath Or Wheezing Albuterol/Ipratropium (Ipratropium-Albuterol 3 Ml Neb) 3 ml IH RT-QID MARIS Last Admin: 09/30/23 14:51 Dose: 3 ml Bisacodyl (Bisacodyl 10 Mg Supp) 10 mg RECTAL DAILY PRN PRN Reason: Constipation Buspirone HCl (Buspirone Hcl 5 Mg Tab) 5 mg PO BID [facility] Last Admin: 09/30/23 08:35 Dose: 5 mg Cyclobenzaprine HCl (Cyclobenzaprine 10 Mg Tab) 10 mg PO TID PRN PRN Reason: Spasms Last Admin: 09/30/23 12:05 Dose: 10 mg Dextrose/Water (Dextrose 50% Syringe 50 Ml) 25 ml IVP PER PROTOCOL PRN; Protocol PRN Reason: Hypoglycemia Dextrose/Water (Dextrose 50% Syringe 50 Ml) 50 ml IVP PER PROTOCOL PRN; Prot ocol PRN Reason: Hypoglycemia Famotidine (Famotidine 20 Mg Tab) 20 mg PO HS [facility] Last Admin: 09/29/23 20:59 Dose: 20 mg Fentanyl Citrate (Fentanyl (Pf) 50 Mcg/Ml 2 Ml Amp) 25 mcg IVP Q4HR PRN PRN Reason: Breakthrough Pain Gabapentin (Gabapentin 400 Mg Cap) 800 mg PO BID [facility] Last Admin: 09/30/23 08:34 Dose: 800 mg Heparin Sodium (Porcine) (Heparin Sodium,Porcine 5,000 Unit/Ml 1 Ml Vial) 5,000 unit SQ Q8HR [facility] Last Admin: 09/30/23 15:35 Dose: 5,000 unit Ibuprofen (Ibuprofen 600 Mg Tab) 600 mg PO QID [facility] Last Admin: 09/30/23 16:45 Dose: 600 mg Insulin Aspart (Insulin Aspart (Novolog) 100 Unit/Ml Vial) 0 unit SQ [facility]; Protocol Last Admin: 09/30/23 16:44 Dose: 5 unit Insulin Aspart (Insuln Asp Prt/Insulin Aspart 100 Unit/Ml 10 Ml Vial) 26 unit SQ AC-BID [facility] Insulin Aspart (Insuln Asp Prt/Insulin Aspart 100 Unit/Ml 10 Ml Vial) 12 unit SQ AC-LUNCH [facility] Levothyroxine Sodium (Levothyroxine 25 Mcg Tab) 25 mcg PO DAILY@0630 [facility] Last Admin: 09/30/23 05:32 Dose: 25 mcg Levothyroxine Sodium (Levothyroxine 125 Mcg Tab) 125 mcg PO DAILY@0630 [facility] Last Admin: 09/30/23 05:29 Dose: 125 mcg Miscellaneous Information (Potassium Replacement Protocol 1 Each Misc) 1 each MISCELLANE DAILY PRN; Protocol PRN Reason: Per Protocol Montelukast Sodium (Montelukast 10 Mg Tab) 10 mg PO DAILY [facility] Last Admin: 09/30/23 08:34 Dose: 10 mg Ondansetron HCl (Ondansetron 4 Mg/2 Ml Vial) 4 mg IVP Q8HR PRN PRN Reason: Nausea And Vomiting Ropinirole HCl (Ropinirole Hcl 1 Mg Tab) 1 mg PO HS [facility] Last Admin: 09/29/23 20:59 Dose: 1 mg Sodium Chloride (Sodium Chloride 0.9% Flush 10 Ml Syringe) 10 ml IV BID [facility] Last Admin: 09/30/23 08:35 Dose: 10 ml Venlafaxine HCl (Venlafaxine Hcl Er 150 Mg Cap) 150 mg PO DAILY [facility] Last Admin: 09/30/23 08:34 Dose: 150 mg Past medical history to include: COPD, diabetes, GERD, osteoarthritis, seizure disorder, hypothyroid, multiple sclerosis, diabetic peripheral neuropathy, optic neuritis, decreased vision in the eyes,;, restless leg syndrome, colon polyps, anxiety depression Social history: started smoking in 1978. Half a pack a day. More so in the past. Stop smoking May 2022. She was drinking heavy alcohol up to about 2017. Has a roommate Aubree. Occasionally does marijuana. Does use a cane Physical examination: VITAL SIGNS: 98, 84, 17, 152/72, 93% room air GENERAL: Sitting up in a chair, eating lunch EYES: Pupils equal. Conjunctiva normal. HEENT: External appearance of nose and ears normal, oral cavity grossly normal. NECK: JVD not raised; masses not palpable. HEART: First and second heart sounds are normal; no edema. LUNGS: Respiratory rate increased; diminished breath sounds, ABDOMEN: Soft, nontender, liver spleen not palpable, no masses palpable. PSYCH: [Alert and oriented x3; mood and affect anxious LYMPHATICS: No lymph nodes palpable neck and axilla NEUROLOGICAL: Cranial nerves grossly intact. Poor sensation grossly intact INVESTIGATIONS, reviewed in the clinical context: September 30: White count 10.2 hemoglobin 12.2 potassium 3.1 BUN 23 Krishen 1.07 September 29: White count 13.4 hemoglobin 12.1 platelets 273 ABG: PH 7.23 pO2 229 pCO2 45 Sodium 139 potassium 4.2 BUN 27 creatinine 1.16 bicarbonate 16 Assessment and plan: -adeno carcinoma of the right lower lobe. Right lower lobe lobectomy by Dr. Kasey James Right-sided chest tube-fell out this morning Outpatient be followed by Dr. Garcia for a right lower lobe speculated not to 2.6 x 1.8 cm. -Metabolic and respiratory acidosis, from sedation. She received 3 A of IV bicarbonate. -COPD in a smoker Albuterol when necessary. Symbicort -Diabetes mellitus type 2, chronically on insulin. . Uncontrolled with hyperglycemia Stop Levemir. Increase NovoLog Mix 70/30. 26 units at breakfast and supper. Add 12 units with lunch. -Diabetic peripheral neuropathy Neurontin 800 mg twice a day. -Hypothyroid Synthroid 150 g -GERD Pepcid -Restless leg syndrome requip 0.5 mg every daily at bedtime -Anxiety depression Effexor XR Accu-Cheks running high. Insulin dose adjusted. Incentive spirometry. Activity as tolerated. Serum acetone negative.
[2023-09-30] MEDS ORDERED: INSULN ASP PRT/INSULIN ASPART 100 UNIT/ML 10 ML VIAL SQ SCH (17:45)
[2023-09-30] MEDS: HYDROcodone/APAP 5-325MG 1 EACH TAB PO PRN (19:42)
[2023-09-30] MEDS: FAMOTIDINE 20 MG TAB PO SCH (19:42)
[2023-09-30 19:48] LABS: Glucose,Whole Blood 151 mg/dL (70-110)
[2023-09-30 20:33] LABS: Glucose,Whole Blood 109 mg/dL (70-110)
[2023-09-30 23:05] LABS: Glucose,Whole Blood 36 mg/dL (70-110)
[2023-09-30 23:39] LABS: Glucose,Whole Blood 51 mg/dL (70-110)
[2023-10-01 00:05] LABS: Glucose,Whole Blood 61 mg/dL (70-110)
[2023-10-01 00:33] LABS: Glucose,Whole Blood 87 mg/dL (70-110)
[2023-10-01] MEDS: HYDROcodone/APAP 5-325MG 1 EACH TAB PO PRN (03:27)
[2023-10-01 06:30] LABS: African American GFR (CKD) 41 (>60 ml/min/1.73 sqM); Anion Gap 6 mmol/L; Blood Urea Nitrogen 30 mg/dL (7-17); Calcium 7.9 mg/dL (8.4-10.2); Carbon Dioxide 24 mmol/L (22-30); Chloride 104 mmol/L (98-107); Glucose 250 mg/dL (74-99); Magnesium 1.6 mg/dL (1.6-2.3); Non-African American GFR(CKD) 36 (>60 ml/min/1.73 sqM); Sodium 134 mmol/L (137-145)
[2023-10-01 06:38] LABS: HCT 31.4 % (34.0-46.0); HGB 10.3 gm/dL (11.4-16.0); MCH 31.4 pg (25.0-35.0); MCHC 32.7 g/dL (31.0-37.0); Mean Platelet Volume 10.7; Platelet Count 227 k/uL (150-450); RBC 3.27 m/uL (3.80-5.40); RDW 14.2 % (11.5-15.5); WBC 9.4 k/uL (3.8-10.6)
[2023-10-01 06:50] LABS: Glucose,Whole Blood 307 mg/dL (70-110)
[2023-10-01] MEDS: LEVOTHYROXINE 25 MCG TAB PO SCH (06:54)
[2023-10-01] MEDS: LEVOTHYROXINE 125 MCG TAB PO SCH (06:54)
[2023-10-01] MEDS: INSULIN ASPART (NovoLOG) 100 UNIT/ML VIAL SQ SCH ×4 (06:54→20:25)
[2023-10-01] MEDS: MAGNESIUM SULFATE-D5W PMX 1 GM in DEXTROSE/WATER 1 100ML.BAG IVPB SCH ×2 (06:59→09:18)
[2023-10-01] MEDS ORDERED: INSULN ASP PRT/INSULIN ASPART 100 UNIT/ML 10 ML VIAL SQ SCH ×3 (07:30→12:30)
[2023-10-01] MEDS: ACETAMINOPHEN TAB 500 MG TAB PO PRN ×2 (08:10→17:02)
--- NOTE | 2023-10-01 08:15 | XR ---
EXAMINATION TYPE: XR chest 2V DATE OF EXAM: 10/01/2023 COMPARISON: 09/30/2023 HISTORY: 58-year-old female postop right lower lobectomy TECHNIQUE: PA and lateral views FINDINGS: ACDF hardware. Flexion loss in the right hemithorax in keeping with patient's history of right sided lobectomy. Interstitial densities are present. Bandlike areas of opacity at the right midlung, likely atelectasis. Subcutaneous emphysema along the right chest wall with small right apical pneumothorax measuring 5 mm, unchanged from prior. Additional strandy atelectasis left midlung. IMPRESSION: 1. Volume loss right hemithorax in keeping with patient's right lobectomy. Similar small, 5 mm right apical pneumothorax is noted with subcutaneous emphysema along the right chest wall. 2. Bandlike areas of atelectasis. Possible developing mild pulmonary vascular congestion.
[2023-10-01] MEDS: IPRATROPIUM-ALBUTEROL 3 ML NEB IH SCH ×4 (08:17→20:05)
--- NOTE | 2023-10-01 08:27 | P.PN ---
Subjective Progress Note Date: 10/01/23 Principal diagnosis: Right lower lobe 2.6 cm nodule, adenocarcinoma, stage I. Past medical history significant for hypothyroidism, COPD with a preoperative FEV1 84% predicted valu e and a DLCO 88% of predicted value, MS, chronic tobacco dependence, diabetes mellitus type 1 with diabetic neuropathy, GERD, restless leg syndrome, anxiety, depression and osteoarthritis. POD #2 robotic-assisted thoracoscopic right lower lobectomy with mediastinal lymph node dissection The patient was seen and examined in follow-up today 10/01/2023 at her bedside in the intensive care unit. She has transfer orders to the third floor cardiac stepdown unit, but due to lack of bed availability on the stepdown unit she remains in the intensive care unit. Currently she is sitting up to bedside chair, is awake, alert, oriented 3 and is in no acute apparent distress. Oxygen saturations are 95% on room air and she is achieving 1000 mL on her incentive spirometry with encouragement. Yesterday 09/30/2023 while getting out of bed the patient's right pleural chest tube fell out. The patient feels that the chest tube was caught up on the bed. Remote telemetry showing normal sinus rhythm heart rate 72 BPM. She denies any complaints of shortness of breath, although is complaining of some surgical type pain to her right chest, currently rating her pain 6 out of 10 with coughing. The patient reports she has been up ambulating in the intensive care unit hallway and tolerating well. The patient's blood sugars were elevated as high as 409 mg/dL yesterday and throughout the night range from 51-307 mg/dL. The patient reports that she had a recent admission in June 2023 with DKA. Laboratory and chest x-ray results reviewed. Objective - Vital Signs Vital signs: Vital Signs Temp 98.1 F 10/01/23 03:54 Pulse 78 10/01/23 03:54 Resp 12 10/01/23 03:54 BP 112/47 10/01/23 03:54 Pulse Ox 95 10/01/23 03:54 FiO2 Intake & Output 09/30/23 10/01/23 10/01/23 18:59 06:59 18:59 Intake Total 650 Output Total 300 800 Balance 350 -800 Weight 75.3 kg Intake: Oral 650 Output: Drainage 50 Right Chest 50 Urine 250 800 Other: Voiding Method Toilet Toilet # Voids 0 ABP, PAP, CO, CI - Last Documented Arterial Blood Pressure 107/42 - Exam CONSTITUTIONAL: Appears comfortable, cooperative, no acute distress, complaining of surgical type pain 6 out of 10 to her right chest. RESPIRATORY: Lungs sounds diminished throughout with few scattered crackles to her right lower lobe. Respirations are symmetrical, nonlabored. Currently on room air with oxygen saturation 95%. Able to achieve 1000 mL on incentive spirometry. Strong cough. CARDIOVASCULAR: S1, S2 present. Regular rate and rhythm, sinus rhythm on telemetry. Palpable peripheral pulses bilaterally. No edema present. No calf pain or tenderness noted. SCDs present. GASTROINTESTINAL: Abdomen soft, nontender, nondistended. Active bowel sounds present 4 quadrants. Tolerating diet. Passing flatus. GENITOURINARY: Continues to void clear, yellow urine. Urine output in the last 8 hours 500 mL. INTEGUMENTARY: Skin is warm and dry with evidence of good perfusion. Right chest thoracic incisions well approximated and covered with dry intact dressing. NEUROLOGIC: Cranial nerves II through XII intact. No focal deficits. MUSKULOSKELETAL: Able to move all extremities, strength equal bilaterally, gait normal. PSYCHIATRIC: Alert and oriented to person place and time, appropriate affect, intact judgment and insight. - Allied health notes Allied health notes reviewed: nursing - Labs CBC & Chem 7: 10/01/23 05:30 10/01/23 05:30 Labs: Abnormal Lab Results - Last 24 Hours (Table) 09/27/23 09/30/23 09/30/23 Range/Units 14:15 05:27 11:11 RBC (3.80-5.40) m/uL Hgb (11.4-16.0) gm/dL Hct (34.0-46.0) % Sodium (137-145) mmol/L Potassium 3.1 L (3.5-5.1) mmol/L Chloride 109 H (98-107) mmol/L BUN 23 H (7-17) mg/dL Creatinine 1.07 H (0.52-1.04) mg/dL Glucose (74-99) mg/dL POC Glucose (mg/dL) 343 H (70-110) mg/dL Calcium 7.9 L (8.4-10.2) mg/dL Crossmatch See Detail 09/30/23 09/30/23 09/30/23 Range/Units 13:49 15:33 16:20 RBC (3.80-5.40) m/uL Hgb (11.4-16.0) gm/dL Hct (34.0-46.0) % Sodium (137-145) mmol/L Potassium (3.5-5.1) mmol/L Chloride (98-107) mmol/L BUN (7-17) mg/dL Creatinine (0.52-1.04) mg/dL Glucose (74-99) mg/dL POC Glucose (mg/dL) 409 H 401 H 407 H (70-110) mg/dL Calcium (8.4-10.2) mg/dL Crossmatch 09/30/23 09/30/23 09/30/23 Range/Units 19:47 23:03 23:36 RBC (3.80-5.40) m/uL Hgb (11.4-16.0) gm/dL Hct (34.0-46.0) % Sodium (137-145) mmol/L Potassium (3.5-5.1) mmol/L Chloride (98-107) mmol/L BUN (7-17) mg/dL Creatinine (0.52-1.04) mg/dL Glucose (74-99) mg/dL POC Glucose (mg/dL) 151 H 36 L 51 L (70-110) mg/dL Calcium (8.4-10.2) mg/dL Crossmatch 10/01/23 10/01/23 10/01/23 Range/Units 00:03 05:30 05:30 RBC 3.27 L (3.80-5.40) m/uL Hgb 10.3 L (11.4-16.0) gm/dL Hct 31.4 L (34.0-46.0) % Sodium 134 L (137-145) mmol/L Potassium (3.5-5.1) mmol/L Chloride (98-107) mmol/L BUN 30 H (7-17) mg/dL Creatinine 1.58 H (0.52-1.04) mg/dL Glucose 250 H (74-99) mg/dL POC Glucose (mg/dL) 61 L (70-110) mg/dL Calcium 7.9 L (8.4-10.2) mg/dL Crossmatch 10/01/23 Range/Units 06:49 RBC (3.80-5.40) m/uL Hgb (11.4-16.0) gm/dL Hct (34.0-46.0) % Sodium (137-145) mmol/L Potassium (3.5-5.1) mmol/L Chloride (98-107) mmol/L BUN (7-17) mg/dL Creatinine (0.52-1.04) mg/dL Glucose (74-99) mg/dL POC Glucose (mg/dL) 307 H (70-110) mg/dL Calcium (8.4-10.2) mg/dL Crossmatch - Imaging and Cardiology Chest x-ray: report reviewed, image reviewed Assessment and Plan Assessment: Right lung nodule measuring 2.6 cm on computed tomography scan, adenocarcinoma, stage I, status post robotic assisted right lower lobectomy with mediastinal lymph node dissection COPD with a preoperative FEV1 184% of predicted value and a DLCO 88% of predicted value History of hypertension Hypothyroidism Diabetes mellitus type 1 with diabetic neuropathy Restless leg syndrome Anxiety Depression Multiple sclerosis Family history of coronary artery disease Chronic ongoing tobacco dependence, quit smoking around 3 weeks ago Osteoarthritis Plan: Encourage incentive spirometry is 10 times every hour while awake. Bronchodilators/steroids per pulmonology. Will monitor daily chest x-rays and labs. Increase activity as tolerated. Out of bed for all meals. Physical and occupational therapy following. GI/DVT prophylaxis Pain control with current medication regimen. Motrin discontinued as her creatinine is 1.58 today. Replace electrolytes per protocol. Pathology results remain pending, will continue to follow. Transferred to the third floor cardiac stepdown unit when bed available. Anticipate discharge home in the next 24 hours. More recommendations to follow based on patient's clinical course. Time with Patient: Greater than 30
[2023-10-01] MEDS: busPIRone HCl 5 MG TAB PO SCH ×2 (09:18→20:24)
[2023-10-01] MEDS: GABAPENTIN 400 MG CAP PO SCH ×2 (09:18→20:24)
[2023-10-01] MEDS: MONTELUKAST 10 MG TAB PO SCH (09:18)
[2023-10-01] MEDS: VENLAFAXINE HCL ER 150 MG CAP PO SCH (09:18)
[2023-10-01] MEDS: HEPARIN SODIUM,PORCINE 5,000 UNIT/ML 1 ML VIAL SQ SCH ×3 (09:18→22:35)
[2023-10-01] MEDS: CYCLOBENZAPRINE 10 MG TAB PO PRN ×2 (09:30→20:35)
--- NOTE | 2023-10-01 11:35 | P.PN ---
Subjective Progress Note Date: 10/01/23 Principal diagnosis: POD #2 robotic-assisted thoracoscopic right lower lobectomy with mediastinal lymph node dissection This is a 58-year-old female known history of multiple medical problems including COPD, tobacco dependence syndrome, type 1 diabetes, hypothyroidism, MS, patient was recently evaluated by Dr. Garcia for a 2.6 cm nodule in the right lower lobe with abnormal PET scan. Patient was aware of the mass going back to May when she had DKA and sepsis. Patient was made aware of the right lower lobe nodule, patient was seen again by Dr. Garcia on outpatient basis and she underwent robotic ion bronchoscopy, And the patient was diagnosed as having adenocarcinoma of the right lower lobe. Patient had a 14-prew-dtuh smoking history and continues to smoke on 10 recently. Patient also had intermittent episodes of hemoptysis, cough and wheezing. And she her weight has been fluctuating. Patient was referred to Dr. James who performed right lower lobectomy today, postoperatively I saw the patient while in the recovery room, apparently patient had intraoperative hypotension and metabolic acidosis requiring multiple amps of bicarbonate given for her acidosis. In the recovery room, patient was still marginal, ABG on nasal cannula showed a pO2 of 229 pCO2 45 pH of 7.23 hence I recommended admitting the patient to the ICU for further and close monitoring. Patient was noted to be slightly lethargic, but arousable, and followed simple instructions. Chest x-ray showed postoperative changes and minimal atelectasis, right-sided chest tube is noted there was no evidence of pneumothorax. During my evaluation in the recovery room, patient had blood pressure 121/60, she was on 3 L nasal cannula with O2 saturation 100% on a did not seem to be in any form of distress Patient was reevaluated today on 09/30/23, patient is in the ICU, but she will be an overflow, she is resting on 2 L nasal cannula and she was transitioned earlier to room air. Her chest tube is at waterseal, no air leak, there is a small tiny apical pneumothorax, patient is doing great, asymptomatic, no cough no wheezing no shortness of breath. Labs this morning are unremarkable including CBC she did have a low potassium of 3.1 being addressed accordingly. Blood sugar was high at 343. Asked x-ray was reviewed and as noted earlier small tiny right apical pneumothorax Patient was reevaluated today on 10/01/23, patient is an overflow in the ICU, doing great. Patient denies any specific complaints, not in distress, she is on room air, her chest tube has been removed yesterday, and her chest x-ray this morning is reassuring. CBC is relatively normal basic metabolic profile is normal however creatinine jumped up to 1.58 today, baseline is 1.16 Objective - Vital Signs Vital signs: Vital Signs Temp 98.1 F 10/01/23 03:54 Pulse 80 10/01/23 08:15 Resp 12 10/01/23 03:54 BP 112/47 10/01/23 03:54 Pulse Ox 95 10/01/23 03:54 FiO2 Intake & Output 09/30/23 10/01/23 10/01/23 18:59 06:59 18:59 Intake Total 650 Output Total 300 800 Balance 350 -800 Weight 75.3 kg Intake: Oral 650 Output: Drainage 50 Right Chest 50 Urine 250 800 Other: Voiding Method Toilet Toilet # Voids 0 ABP, PAP, CO, CI - Last Documented Arterial Blood Pressure 107/42 - Exam Physical Exam: Revealed 58-year-old female in no distress, on room air Head: Atraumatic normocephalic HEENT:[Neck is supple.] [No neck masses.] [No thyromegaly.] [No JVD.] Chest: [Clear throughout, no crackles, no rhonchi, no wheezes.] Cardiac Exam: [Normal S1 and S2, no S3 gallop, no murmur.] Abdomen: [Soft, nontender, no megaly, no rebound, no guarding, normal bowel sounds.] Extremities: [No clubbing, no edema, no cyanosis.] Neurological Exam: [No focal neurologic deficit.] Psychiatric: Normal mood, affect and normal mental status examination. Skin: Normal - Labs CBC & Chem 7: 10/01/23 05:30 10/01/23 05:30 Labs: Abnormal Lab Results - Last 24 Hours (Table) 09/27/23 09/30/23 09/30/23 Range/Units 14:15 13:49 15:33 RBC (3.80-5.40) m/uL Hgb (11.4-16.0) gm/dL Hct (34.0-46.0) % Sodium (137-145) mmol/L BUN (7-17) mg/dL Creatinine (0.52-1.04) mg/dL Glucose (74-99) mg/dL POC Glucose (mg/dL) 409 H 401 H (70-110) mg/dL Calcium (8.4-10.2) mg/dL Crossmatch See Detail 09/30/23 09/30/23 09/30/23 Range/Units 16:20 19:47 23:03 RBC (3.80-5.40) m/uL Hgb (11.4-16.0) gm/dL Hct (34.0-46.0) % Sodium (137-145) mmol/L BUN (7-17) mg/dL Creatinine (0.52-1.04) mg/dL Glucose (74-99) mg/dL POC Glucose (mg/dL) 407 H 151 H 36 L (70-110) mg/dL Calcium (8.4-10.2) mg/dL Crossmatch 09/30/23 10/01/23 10/01/23 Range/Units 23:36 00:03 05:30 RBC (3.80-5.40) m/uL Hgb (11.4-16.0) gm/dL Hct (34.0-46.0) % Sodium 134 L (137-145) mmol/L BUN 30 H (7-17) mg/dL Creatinine 1.58 H (0.52-1.04) mg/dL Glucose 250 H (74-99) mg/dL POC Glucose (mg/dL) 51 L 61 L (70-110) mg/dL Calcium 7.9 L (8.4-10.2) mg/dL Crossmatch 10/01/23 10/01/23 Range/Units 05:30 06:49 RBC 3.27 L (3.80-5.40) m/uL Hgb 10.3 L (11.4-16.0) gm/dL Hct 31.4 L (34.0-46.0) % Sodium (137-145) mmol/L BUN (7-17) mg/dL Creatinine (0.52-1.04) mg/dL Glucose (74-99) mg/dL POC Glucose (mg/dL) 307 H (70-110) mg/dL Calcium (8.4-10.2) mg/dL Crossmatch Assessment and Plan Assessment: Impression: POD #2 robotic-assisted thoracoscopic right lower lobectomy with mediastinal lymph node dissection Right lung adenocarcinoma stage I Postoperative atelectasis, expected Postoperative tiny apical pneumothorax, expected History of underlying COPD, mild. Type 1 diabetes History of seizures secondary to hypoglycemia History of multiple sclerosis Peripheral diabetic neuropathy History of optic neuritis and MS History of restless leg syndrome history of colonic polyps History of gram-negative bacteremia and sepsis Benign essential hypertension History of cervical degenerative disc disease and previous cervical decompression with discectomy and fusion Ex-smoker recommendation: Continue incentive spirometry Continue IV fluids Bronchodilators Chest x-ray was reviewed Continue GI and DVT prophylaxis Ambulate Transfer to medical surgical floor sometime later today once a bed is available Time with Patient: Less than 30
[2023-10-01 12:04] LABS: Glucose,Whole Blood 178 mg/dL (70-110)
[2023-10-01] MEDS ORDERED: KETOROLAC 15 MG/ML 1 ML VIAL IVP STA (12:21)
--- NOTE | 2023-10-01 13:03 | P.PN ---
Subjective Progress Note Date: 10/01/23 This is a 58-year-old patient who follows with Dr. Pino. Chronic stable medical conditions include GERD, osteoarthritis, seizure disorder, hypothyroid, MS, diabetic peripheral neuropathy, optic neuritis, decreased vision in the eyes, restless leg syndrome, anxiety depression. . evaluated by Dr. Garcia for a 2.6 cm nodule in the right lower lobe with abnormal PET scan. by Dr. Garcia on outpatient basis and she underwent robotic ion bronchoscopy,diagnosed as having adenocarcinoma of the right lower lobe. Patient had a 40-vohd-vvbh smoking history and continues to smoke on 10 recently. Patient also had intermittent episodes of hemoptysis, cough and wheezing. And she her weight has been fluctuating. Dr. James - performed right lower lobectomy today, postoperatively patient had intraoperative hypotension and metabolic acidosis requiring multiple amps of bicarbonate given for her acid osis. In the recovery room, patient was still marginal, ABG on nasal cannula showed a pO2 of 229 pCO2 45 pH of 7.23 recommended admitting the patient to the ICU. right-sided chest tube is noted there was no evidence of pneumothorax. This evening patient's ICU. Able to hold a conversation. Did eat some. Some pain at the operative site. September 30: Sitting up in a chair. In the ICU. And patient was moving in the bed apparently the chest tube came out. Breathing stable. Accu-Cheks every r unning high. Patient's serum acetone was checked came back negative. Patient's NovoLog 7030s being increased. Additional dosing will be admitted with lunchtime. 10/01. Patient seen and examined. States she feels better. Breathing is improving. Not requiring any oxygen REVIEW OF SYSTEMS: CONSTITUTIONAL: No fever, no malaise,. CARDIOVASCULAR: No chest pain, no palpitations, no syncope. PULMONARY: No shortness of breath, no cough, GASTROINTESTINAL: No diarrhea, no nausea, no vomiting, no abdominal pain. NEUROLOGICAL: No headaches, no weakness, PHYSICAL EXAMINATION: GENERAL: The patient is alert and oriented x3, not in any acute distress. Well developed, well nourished. HEENT: Pupils are round and equally reacting to light. EOMI. No scleral icterus. No conjunctival pallor. Normocephalic, atraumatic. No pharyngeal erythema. No thyromegaly. CARDIOVASCULAR: S1 and S2 present. No murmurs, rubs, or gallops. PULMONARY: Chest is clear to auscultation, no wheezing or crackles. ABDOMEN: Soft, nontender, nondistended, normoactive bowel sounds. No palpable o rganomegaly. MUSCULOSKELETAL: No joint swelling or deformity. EXTREMITIES: No cyanosis, clubbing, or pedal edema. NEUROLOGICAL: Gross neurological examination did not reveal any focal deficits. SKIN: No rashes. Assessment and plan -adeno carcinoma of the right lower lobe tetanus post Right lower lobe lobectomy by Dr. Kasey James -Metabolic and respiratory acidosis, from sedation. -COPD in a smoker -Diabetes mellitus type 2, chronically on insulin. . Uncontrolled with hyperglycemia -Diabetic peripheral neuropathy -Hypothyroid -GERD -Restless leg syndrome Monitor vital signs Monitor CBC Monitor CMP Continue telemetry monitoring Encourage use of incentive spirometer In regards to hypothyroid continue Synthyroid In regards to diabetes mellitus, monitor blood sugar levels, continue sliding scale insulin and current NovoLog 70/30 regimen pulmonology following Pulmonology following CT surgery following Labs and medication were reviewed.. Continue same treatment. Continue with symptomatic treatment. Resume home medication. Monitor labs and vitals. DVT and GI prophylaxis. Further recommendations as per clinical course of the patient Dictation was produced using [employer] dictation software. please excuse any grammatical, word or spelling errors. Objective - Vital Signs Vital signs: Vital Signs Temp 98.1 F 10/01/23 03:54 Pulse 80 10/01/23 08:15 Resp 12 10/01/23 03:54 BP 112/47 10/01/23 03:54 Pulse Ox 95 10/01/23 03:54 FiO2 Intake & Output 09/30/23 10/01/23 10/01/23 18:59 06:59 18:59 Intake Total 650 Output Total 300 800 Balance 350 -800 Weight 75.3 kg Intake: Oral 650 Output: Drainage 50 Right Chest 50 Urine 250 800 Other: Voiding Method Toilet Toilet # Voids 0 ABP, PAP, CO, CI - Last Documented Arterial Blood Pressure 107/42 - Labs CBC & Chem 7: 10/01/23 05:30 10/01/23 05:30 Labs: Abnormal Lab Results - Last 24 Hours (Table) 09/27/23 09/30/23 09/30/23 Range/Units 14:15 11:11 13:49 RBC (3.80-5.40) m/uL Hgb (11.4-16.0) gm/dL Hct (34.0-46.0) % Sodium (137-145) mmol/L BUN (7-17) mg/dL Creatinine (0.52-1.04) mg/dL Glucose (74-99) mg/dL POC Glucose (mg/dL) 343 H 409 H (70-110) mg/dL Calcium (8.4-10.2) mg/dL Crossmatch See Detail 09/30/23 09/30/23 09/30/23 Range/Units 15:33 16:20 19:47 RBC (3.80-5.40) m/uL Hgb (11.4-16.0) gm/dL Hct (34.0-46.0) % Sodium (137-145) mmol/L BUN (7-17) mg/dL Creatinine (0.52-1.04) mg/dL Glucose (74-99) mg/dL POC Glucose (mg/dL) 401 H 407 H 151 H (70-110) mg/dL Calcium (8.4-10.2) mg/dL Crossmatch 09/30/23 09/30/23 10/01/23 Range/Units 23:03 23:36 00:03 RBC (3.80-5.40) m/uL Hgb (11.4-16.0) gm/dL Hct (34.0-46.0) % Sodium (137-145) mmol/L BUN (7-17) mg/dL Creatinine (0.52-1.04) mg/dL Glucose (74-99) mg/dL POC Glucose (mg/dL) 36 L 51 L 61 L (70-110) mg/dL Calcium (8.4-10.2) mg/dL Crossmatch 10/01/23 10/01/23 10/01/23 Range/Units 05:30 05:30 06:49 RBC 3.27 L (3.80-5.40) m/uL Hgb 10.3 L (11.4-16.0) gm/dL Hct 31.4 L (34.0-46.0) % Sodium 134 L (137-145) mmol/L BUN 30 H (7-17) mg/dL Creatinine 1.58 H (0.52-1.04) mg/dL Glucose 250 H (74-99) mg/dL POC Glucose (mg/dL) 307 H (70-110) mg/dL Calcium 7.9 L (8.4-10.2) mg/dL Crossmatch
[2023-10-01 16:21] LABS: Glucose,Whole Blood 166 mg/dL (70-110)
[2023-10-01] MEDS: INSULN ASP PRT/INSULIN ASPART 100 UNIT/ML 10 ML VIAL SQ SCH (16:50)
[2023-10-01 20:06] LABS: Glucose,Whole Blood 87 mg/dL (70-110)
[2023-10-01] MEDS: FAMOTIDINE 20 MG TAB PO SCH (20:24)
[2023-10-01] MEDS ORDERED: INSULIN DETEMIR (LEVEMIR) 100 UNIT/ML SYR SQ SCH (21:00)
[2023-10-02] MEDS: ACETAMINOPHEN TAB 500 MG TAB PO PRN (04:05)
[2023-10-02 04:13] LABS: Glucose,Whole Blood 43 mg/dL (70-110)
[2023-10-02 04:29] LABS: Glucose,Whole Blood 53 mg/dL (70-110)
[2023-10-02 04:56] LABS: Glucose,Whole Blood 85 mg/dL (70-110)
[2023-10-02 05:54] LABS: Glucose,Whole Blood 159 mg/dL (70-110)
[2023-10-02] MEDS: LEVOTHYROXINE 25 MCG TAB PO SCH (05:59)
[2023-10-02] MEDS: INSULIN ASPART (NovoLOG) 100 UNIT/ML VIAL SQ SCH ×5 (05:59→20:19)
[2023-10-02] MEDS: LEVOTHYROXINE 125 MCG TAB PO SCH (05:59)
[2023-10-02] MEDS: CYCLOBENZAPRINE 10 MG TAB PO PRN ×2 (06:00→21:57)
--- NOTE | 2023-10-02 07:43 | XR ---
EXAMINATION TYPE: XR chest 2V DATE OF EXAM: 10/02/2023 7:15 AM CLINICAL INDICATION:Female, 58 years old with history of Postoperative lower lobectomy; [facility] COMPARISON: 10/01/2023 and before TECHNIQUE: XR chest 2V Frontal and lateral views of the chest. FINDINGS: Lines/Tubes: EKG leads overlie the chest. No indwelling lines are seen. Lungs/Pleura: Similar appearance of volume loss in the right hemithorax status post's lower lobectomy . Linear scarring or atelectasis in the right mid and upper lung zones, similar to previous. No sizab le pleural effusion or large pneumothorax seen. There is likely a tiny residual right pneumothorax me asuring no more than 5 mm. Pulmonary vascularity: Unremarkable. Heart/mediastinum: Cardiac size is normal. Stable mediastinal silhouette. Musculoskeletal: At least one mildly displaced right inferolateral rib fracture is again noted. No cl early new osseous pathology. ACDF hardware over the lower cervical spine. Other findings: Small to moderate amount of soft tissue emphysema in the right chest wall, not signif icantly changed. IMPRESSION: 1. Stable postoperative chest. 2. Stable atelectatic changes and/or scarring on the right. 3. Stable tiny residual right pneumothorax. 4. Stable subcutaneous emphysema right chest wall.
[2023-10-02] MEDS: MONTELUKAST 10 MG TAB PO SCH (08:22)
[2023-10-02] MEDS: busPIRone HCl 5 MG TAB PO SCH ×2 (08:22→20:19)
[2023-10-02] MEDS: HEPARIN SODIUM,PORCINE 5,000 UNIT/ML 1 ML VIAL SQ SCH ×3 (08:22→21:57)
[2023-10-02] MEDS: GABAPENTIN 400 MG CAP PO SCH ×2 (08:22→20:19)
[2023-10-02] MEDS: VENLAFAXINE HCL ER 150 MG CAP PO SCH (08:22)
[2023-10-02] MEDS: IPRATROPIUM-ALBUTEROL 3 ML NEB IH SCH ×4 (08:57→21:02)
[2023-10-02 09:37] LABS: HCT 30.7 % (34.0-46.0); HGB 9.9 gm/dL (11.4-16.0); MCH 31.5 pg (25.0-35.0); MCHC 32.1 g/dL (31.0-37.0); MCV 98.3 fL (80.0-100.0); Mean Platelet Volume 10.3; Platelet Count 223 k/uL (150-450); RBC 3.12 m/uL (3.80-5.40); RDW 13.8 % (11.5-15.5); WBC 7.1 k/uL (3.8-10.6)
--- NOTE | 2023-10-02 10:06 | P.PN ---
Subjective Progress Note Date: 10/02/23 Principal diagnosis: Right lower lobe 2.6 cm nodule, adenocarcinoma, stage I. Past medical history significant for hypothyroidism, COPD with a preoperative FEV1 84% predicted valu e and a DLCO 88% of predicted value, MS, chronic tobacco dependence, diabetes mellitus type 1 with diabetic neuropathy, GERD, restless leg syndrome, anxiety, depression and osteoarthritis. POD #3 robotic-assisted thoracoscopic right lower lobectomy with mediastinal lymph node dissection The patient was seen and examined in follow-up today 10/02/2023 under bedside on the third floor cardiac stepdown unit. Currently she is lying in bed, is awake, alert, oriented 3 and is in no acute apparent distress. Denies any complaints of shortness of breath at this time, although was complaining of some surgical type pain to her right chest incision sites. Currently rating her pain 5-6 out of 10 on the pain scale. Oxygen saturations are 97% on room air and she is achieving 1000 mL on her incentive spirometry with encouragement. Remote telemetry showing normal sinus rhythm heart rate 78 BPM. The patient reports she has been up ambulating in the cardiac stepdown unit hallway without difficu lty and is tolerating well. The patient's blood sugars continue to fluctuate throughout the day and evening and some adjustments have been made on her insulins. Discharge planning is in place. Laboratory and chest x-ray results reviewed. Objective - Vital Signs Vital signs: Vital Signs Temp 98.3 F 10/02/23 08:20 Pulse 82 10/02/23 09:14 Resp 16 10/02/23 08:20 BP 135/71 10/02/23 08:20 Pulse Ox 100 10/02/23 08:20 FiO2 Intake & Output 10/01/23 10/02/23 10/02/23 18:59 06:59 18:59 Intake Total 100 540 Output Total 1400 Balance -1300 540 Weight 71.9 kg Intake: Intake, IV Titration 100 Amount Magnesium Sulfate-D5w Pmx 100 1 gm In Dextrose/Water 1 100ml.bag @ 100 mls/hr IVPB Q1H [facility] Rx#: [id number] Oral 540 Output: Urine 1400 Other: Voiding Method Toilet Toilet Toilet # Voids 1 # Bowel Movements 1 ABP, PAP, CO, CI - Last Documented Arterial Blood Pressure 107/42 - Exam CONSTITUTIONAL: Appears comfortable, cooperative, no acute distress, complaining of surgical type pain 5-6 out of 10 to her right chest. RESPIRATORY: Lungs sounds diminished throughout with few scattered crackles to her right lower lobe. Respirations are symmetrical, nonlabored. Currently on room air with oxygen saturation 97%. Able to achieve 1000 mL on incentive spirometry. Strong cough. CARDIOVASCULAR: S1, S2 present. Regular rate and rhythm, sinus rhythm on telem etry. Palpable peripheral pulses bilaterally. No edema present. No calf pain or tenderness noted. SCDs present. GASTROINTESTINAL: Abdomen soft, nontender, nondistended. Active bowel sounds present 4 quadrants. Tolerating diet. Passing flatus. GENITOURINARY: Continues to void clear, yellow urine. INTEGUMENTARY: Skin is warm and dry with evidence of good perfusion. Right chest thoracic incisions well approximated and covered with dry intact dressing. NEUROLOGIC: Cranial nerves II through XII intact. No focal deficits. MUSKULOSKELETAL: Able to move all extremities, strength equal bilaterally, gait normal. PSYCHIATRIC: Alert and oriented to person place and time, appropriate affect, intact judgment and insight. - Allied health notes Allied health notes reviewed: nursing - Labs CBC & Chem 7: 10/02/23 08:12 10/01/23 05:30 Labs: Abnormal Lab Results - Last 24 Hours (Table) 10/01/23 10/01/23 10/02/23 Range/Units 12:03 16:20 04:11 RBC (3.80-5.40) m/uL Hgb (11.4-16.0) gm/dL Hct (34.0-46.0) % POC Glucose (mg/dL) 178 H 166 H 43 L (70-110) mg/dL 10/02/23 10/02/23 10/02/23 Range/Units 04:27 05:52 08:12 RBC 3.12 L (3.80-5.40) m/uL Hgb 9.9 L (11.4-16.0) gm/dL Hct 30.7 L (34.0-46.0) % POC Glucose (mg/dL) 53 L 159 H (70-110) mg/dL - Imaging and Cardiology Chest x-ray: report reviewed, image reviewed Assessment and Plan Assessment: Right lung nodule measuring 2.6 cm on computed tomography scan, adenocarcinoma, stage I, status post robotic assisted right lower lobectomy with mediastinal lymph node dissection COPD with a preoperative FEV1 184% of predicted value and a DLCO 88% of predicted value History of hypertension Hypothyroidism Diabetes mellitus type 1 with diabetic neuropathy Restless leg syndrome Anxiety Depression Multiple sclerosis Family history of coronary artery disease Chronic ongoing tobacco dependence, quit smoking around 3 weeks ago Osteoarthritis Plan: Encourage incentive spirometry is 10 times every hour while awake. Bronchodilators/steroids per pulmonology. Will monitor daily chest x-rays and labs. Increase activity as tolerated. Out of bed for all meals. Physical and occupational therapy following. GI/DVT prophylaxis Pain control with current medication regimen. Replace electrolytes per protocol. Pathology results remain pending, will continue to follow. Levemir insulin has been decreased to 10 units subcu daily at bedtime. Continue NovoLog 70 3016 units subcu before meals twice a day. Anticipate discharge home in the next 24 hours. More recommendations to follow based on patient's clinical course. Time with Patient: Greater than 30
[2023-10-02] MEDS: INSULN ASP PRT/INSULIN ASPART 100 UNIT/ML 10 ML VIAL SQ SCH ×2 (10:19→16:53)
[2023-10-02 10:21] LABS: African American GFR (CKD) 67 (>60 ml/min/1.73 sqM); Anion Gap 7 mmol/L; Blood Urea Nitrogen 24 mg/dL (7-17); Calcium 8.2 mg/dL (8.4-10.2); Carbon Dioxide 23 mmol/L (22-30); Chloride 106 mmol/L (98-107); Glucose 268 mg/dL (74-99); Magnesium 2.1 mg/dL (1.6-2.3); Non-African American GFR(CKD) 58 (>60 ml/min/1.73 sqM); Potassium 4.3 mmol/L (3.5-5.1); Sodium 136 mmol/L (137-145)
[2023-10-02] MEDS: IBUPROFEN 600 MG TAB PO SCH ×3 (11:10→21:57)
[2023-10-02 11:15] VITALS: RESP 18
[2023-10-02 11:18] LABS: Glucose,Whole Blood 340 mg/dL (70-110)
--- NOTE | 2023-10-02 12:30 | P.PN ---
Subjective Progress Note Date: 10/02/23 Principal diagnosis: POD #3 robotic-assisted thoracoscopic right lower lobectomy with mediastinal lymph node dissection This is a 58-year-old female known history of multiple medical problems including COPD, tobacco dependence syndrome, type 1 diabetes, hypothyroidism, MS, patient was recently evaluated by Dr. Garcia for a 2.6 cm nodule in the right lower lobe with abnormal PET scan. Patient was aware of the mass going back to May when she had DKA and sepsis. Patient was made aware of the right lower lobe nodule, patient was seen again by Dr. Garcia on outpatient basis and she underwent robotic ion bronchoscopy, And the patient was diagnosed as having adenocarcinoma of the right lower lobe. Patient had a 17-rllo-vfxw smoking history and continues to smoke on 10 recently. Patient also had intermittent episodes of hemoptysis, cough and wheezing. And she her weight has been fluctuating. Patient was referred to Dr. James who performed right lower lobectomy today, postoperatively I saw the patient while in the recovery room, apparently patient had intraoperative hypotension and metabolic acidosis requiring multiple amps of bicarbonate given for her acidosis. In the recovery room, patient was still marginal, ABG on nasal cannula showed a pO2 of 229 pCO2 45 pH of 7.23 hence I recommended admitting the patient to the ICU for further and close monitoring. Patient was noted to be slightly lethargic, but arousable, and followed simple instructions. Chest x-ray showed postoperative changes and minimal atelectasis, right-sided chest tube is noted there was no evidence of pneumothorax. During my evaluation in the recovery room, patient had blood pressure 121/60, she was on 3 L nasal cannula with O2 saturation 100% on a did not seem to be in any form of distress Patient was reevaluated today on 09/30/23, patient is in the ICU, but she will be an overflow, she is resting on 2 L nasal cannula and she was transitioned earlier to room air. Her chest tube is at waterseal, no air leak, there is a small tiny apical pneumothorax, patient is doing great, asymptomatic, no cough no wheezing no shortness of breath. Labs this morning are unremarkable including CBC she did have a low potassium of 3.1 being addressed accordingly. Blood sugar was high at 343. Asked x-ray was reviewed and as noted earlier small tiny right apical pneumothorax Patient was reevaluated today on 10/01/23, patient is an overflow in the ICU, doing great. Patient denies any specific complaints, not in distress, she is on room air, her chest tube has been removed yesterday, and her chest x-ray this morning is reassuring. CBC is relatively normal basic metabolic profile is normal however creatinine jumped up to 1.58 today, baseline is 1.16 Reevaluated today on 10/02/23, patient is on the medical floor, doing well, not in any distress, she is on room air, relatively asymptomatic. Pain seems to be fairly under control, O2 sats is 97% on room air, achieving 1000 mL on her incentive spirometry. Hemodynamically stable, and her chest x-ray is reassuring. Apparently discharge planning is in place, all labs today are reassuring including CBC and basic metabolic profile Objective - Vital Signs Vital signs: Vital Signs Temp 98.3 F 10/02/23 08:20 Pulse 82 10/02/23 12:12 Resp 18 10/02/23 11:11 BP 130/61 10/02/23 11:11 Pulse Ox 98 10/02/23 11:11 FiO2 Intake & Output 10/01/23 10/02/23 10/02/23 18:59 06:59 18:59 Intake Total 100 540 Output Total 1400 Balance -1300 540 Weight 71.9 kg Intake: Intake, IV Titration 100 Amount Magnesium Sulfate-D5w Pmx 100 1 gm In Dextrose/Water 1 100ml.bag @ 100 mls/hr IVPB Q1H [facility] Rx#: [id number] Oral 540 Output: Urine 1400 Other: Voiding Method Toilet Toilet Toilet # Voids 1 # Bowel Movements 1 ABP, PAP, CO, CI - Last Documented Arterial Blood Pressure 107/42 - Exam Physical Exam: Revealed 58-year-old female in no distress, on room air Head: Atraumatic normocephalic HEENT:[Neck is supple.] [No neck masses.] [No thyromegaly.] [No JVD.] Chest: [Clear throughout, no crackles, no rhonchi, no wheezes.] Cardiac Exam: [Normal S1 and S2, no S3 gallop, no murmur.] Abdomen: [Soft, nontender, no megaly, no rebound, no guarding, normal bowel sounds.] Extremities: [No clubbing, no edema, no cyanosis.] Neurological Exam: [No focal neurologic deficit.] Psychiatric: Normal mood, affect and normal mental status examination. Skin: Normal - Labs CBC & Chem 7: 10/02/23 08:12 10/02/23 08:12 Labs: Abnormal Lab Results - Last 24 Hours (Table) 10/01/23 10/02/23 10/02/23 Range/Units 16:20 04:11 04:27 RBC (3.80-5.40) m/uL Hgb (11.4-16.0) gm/dL Hct (34.0-46.0) % Sodium (137-145) mmol/L BUN (7-17) mg/dL Creatinine (0.52-1.04) mg/dL Glucose (74-99) mg/dL POC Glucose (mg/dL) 166 H 43 L 53 L (70-110) mg/dL Calcium (8.4-10.2) mg/dL 10/02/23 10/02/23 10/02/23 Range/Units 05:52 08:12 08:12 RBC 3.12 L (3.80-5.40) m/uL Hgb 9.9 L (11.4-16.0) gm/dL Hct 30.7 L (34.0-46.0) % Sodium 136 L (137-145) mmol/L BUN 24 H (7-17) mg/dL Creatinine 1.05 H (0.52-1.04) mg/dL Glucose 268 H (74-99) mg/dL POC Glucose (mg/dL) 159 H (70-110) mg/dL Calcium 8.2 L (8.4-10.2) mg/dL 10/02/23 Range/Units 11:16 RBC (3.80-5.40) m/uL Hgb (11.4-16.0) gm/dL Hct (34.0-46.0) % Sodium (137-145) mmol/L BUN (7-17) mg/dL Creatinine (0.52-1.04) mg/dL Glucose (74-99) mg/dL POC Glucose (mg/dL) 340 H (70-110) mg/dL Calcium (8.4-10.2) mg/dL Assessment and Plan Assessment: Impression: POD #3 robotic-assisted thoracoscopic right lower lobectomy with mediastinal lymph node dissection Right lung adenocarcinoma stage I Postoperative atelectasis, expected Postoperative tiny apical pneumothorax, expected History of underlying COPD, mild. Type 1 diabetes History of seizures secondary to hypoglycemia History of multiple sclerosis Peripheral diabetic neuropathy History of optic neuritis and MS History of restless leg syndrome history of colonic polyps History of gram-negative bacteremia and sepsis Benign essential hypertension History of cervical degenerative disc disease and previous cervical decompression with discectomy and fusion Ex-smoker recommendation: Continue incentive spirometry Continue IV fluids Bronchodilators Chest x-ray was reviewed Continue GI and DVT prophylaxis Ambulate Consider discharge planning once she is cleared by thoracic surgery on the case Follow-up on outpatient basis Time with Patient: Less than 30
--- NOTE | 2023-10-02 13:24 | P.PN ---
Subjective Progress Note Date: 10/02/23 This is a 58-year-old patient who follows with Dr. Pino. Chronic stable medical conditions include GERD, osteoarthritis, seizure disorder, hypothyroid, MS, diabetic peripheral neuropathy, optic neuritis, decreased vision in the eyes, restless leg syndrome, anxiety depression. . evaluated by Dr. Garcia for a 2.6 cm nodule in the right lower lobe with abnormal PET scan. by Dr. Garcia on outpatient basis and she underwent robotic ion bronchoscopy,diagnosed as having adenocarcinoma of the right lower lobe. Patient had a 36-[id number]-[id number] smoking history and continues to smoke on 10 recently. Patient also had intermittent episodes of hemoptysis, cough and wheezing. And she her weight has been fluctuating. Dr. James - performed right lower lobectomy today, postoperatively patient had intraoperative hypotension and metabolic acidosis requiring multiple amps of bicarbonate given for her acid osis. In the recovery room, patient was still marginal, ABG on nasal cannula showed a pO2 of 229 pCO2 45 pH of 7.23 recommended admitting the patient to the ICU. right-sided chest tube is noted there was no evidence of pneumothorax. This evening patient's ICU. Able to hold a conversation. Did eat some. Some pain at the operative site. September 30: Sitting up in a chair. In the ICU. And patient was moving in the bed apparently the chest tube came out. Breathing stable. Accu-Cheks every r unning high. Patient's serum acetone was checked came back negative. Patient's NovoLog 7030s being increased. Additional dosing will be admitted with lunchtime. 10/01. Patient seen and examined. States she feels better. Breathing is improving. Not requiring any oxygen 10/02. Patient seen and examined. Patient blood sugars better controlled, there were 2 episodes of low blood sugar levels, dose of Levemir decreased to 10 units at night. REVIEW OF SYSTEMS: CONSTITUTIONAL: No fever, no malaise,. CARDIOVASCULAR: No chest pain, no palpitations, no syncope. PULMONARY: No shortness of breath, no cough, GASTROINTESTINAL: No diarrhea, no nausea, no vomiting, no abdominal pain. NEUROLOGICAL: No headaches, no weakness, PHYSICAL EXAMINATION: GENERAL: The patient is alert and oriented x3, not in any acute distress. Well developed, well nourished. HEENT: Pupils are round and equally reacting to light. EOMI. No scleral icterus. No conjunctival pallor. Normocephalic, atraumatic. No pharyngeal erythema. No thyromegaly. CARDIOVASCULAR: S1 and S2 present. No murmurs, rubs, or gallops. PULMONARY: Chest is clear to auscultation, no wheezing or crackles. ABDOMEN: Soft, nontender, nondistended, normoactive bowel sounds. No palpable organomegaly. MUSCULOSKELETAL: No joint swelling or deformity. EXTREMITIES: No cyanosis, clubbing, or pedal edema. NEUROLOGICAL: Gross neurological examination did not reveal any focal deficits. SKIN: No rashes. Assessment and plan -adeno carcinoma of the right lower lobe tetanus post Right lower lobe lobectomy by Dr. Kasey James -Metabolic and respiratory acidosis, from sedation. -COPD in a smoker -Diabetes mellitus type 2, chronically on insulin. . Uncontrolled with hyperglycemia -Diabetic peripheral neuropathy -Hypothyroid -GERD -Restless leg syndrome Monitor vital signs Monitor CBC Monitor CMP Continue telemetry monitoring Encourage use of incentive spirometer In regards to hypothyroid continue Synthyroid In regards to diabetes mellitus, monitor blood sugar levels, continue sliding scale insulin and current NovoLog 70/30 regimen , continue Levemir 10 units at night Pulmonology following CT surgery following Labs and medication were reviewed.. Continue same treatment. Continue with symptomatic treatment. Resume home medication. Monitor labs and vitals. DVT and GI prophylaxis. Further recommendations as per clinical course of the patient Dictation was produced using [employer] dictation software. please excuse any grammatical, word or spelling errors. Objective - Vital Signs Vital signs: Vital Signs Temp 98.3 F 10/02/23 08:20 Pulse 82 10/02/23 09:14 Resp 16 10/02/23 08:20 BP 135/71 10/02/23 08:20 Pulse Ox 100 10/02/23 08:20 FiO2 Intake & Output 10/01/23 10/02/23 10/02/23 18:59 06:59 18:59 Intake Total 100 540 Output Total 1400 Balance -1300 540 Weight 71.9 kg Intake: Intake, IV Titration 100 Amount Magnesium Sulfate-D5w Pmx 100 1 gm In Dextrose/Water 1 100ml.bag @ 100 mls/hr IVPB Q1H [facility] Rx#: [id number] Oral 540 Output: Urine 1400 Other: Voiding Method Toilet Toilet Toilet # Voids 1 # Bowel Movements 1 ABP, PAP, CO, CI - Last Documented Arterial Blood Pressure 107/42 - Labs CBC & Chem 7: 10/02/23 08:12 10/02/23 08:12 Labs: Abnormal Lab Results - Last 24 Hours (Table) 10/01/23 10/01/23 10/02/23 Range/Units 12:03 16:20 04:11 POC Glucose (mg/dL) 178 H 166 H 43 L (70-110) mg/dL 10/02/23 10/02/23 Range/Units 04:27 05:52 POC Glucose (mg/dL) 53 L 159 H (70-110) mg/dL
[2023-10-02 16:39] LABS: Glucose,Whole Blood 352 mg/dL (70-110)
[2023-10-02 19:34] LABS: Glucose,Whole Blood 287 mg/dL (70-110)
[2023-10-02] MEDS: FAMOTIDINE 20 MG TAB PO SCH (20:19)
[2023-10-02] MEDS ORDERED: INSULIN DETEMIR (LEVEMIR) 100 UNIT/ML SYR SQ SCH (21:00)
[2023-10-02 22:26] LABS: Glucose,Whole Blood 206 mg/dL (70-110)
[2023-10-03 02:01] LABS: Glucose,Whole Blood 175 mg/dL (70-110)
[2023-10-03] MEDS: ACETAMINOPHEN TAB 500 MG TAB PO PRN (03:53)
[2023-10-03 05:52] LABS: Glucose,Whole Blood 97 mg/dL (70-110)
[2023-10-03] MEDS: INSULIN ASPART (NovoLOG) 100 UNIT/ML VIAL SQ SCH (06:14)
[2023-10-03] MEDS: LEVOTHYROXINE 125 MCG TAB PO SCH (06:17)
[2023-10-03] MEDS: LEVOTHYROXINE 25 MCG TAB PO SCH (06:17)
--- NOTE | 2023-10-03 08:08 | XR ---
EXAM: XR chest 1V portable CLINICAL INDICATION:Female, 58 years old with history of Right lower lobectomy; [facility] COMPARISON: 10/02/2023 and before TECHNIQUE: Chest single view. FINDINGS: Lines/Tubes: EKG leads overlie the chest. No indwelling lines are seen. Lungs/Pleura: Similar appearance of volume loss in the right hemithorax, status post lower lobectomy. Linear scarring or atelectasis in the right mid and upper lung zones, similar to previous. Mild blun ting of the right costophrenic angle, could indicate small effusion versus pleural thickening. No siz able pneumothorax is seen. Pulmonary vascularity: Unremarkable. Heart/mediastinum: Cardiac size is normal. Stable mediastinal silhouette. Musculoskeletal: Unchanged osseous structures. At least one mildly displaced right inferolateral rib fracture is again noted. ACDF hardware over the lower cervical spine. Other findings: Small to moderate amount of soft tissue emphysema in the right chest wall extending t o the base of neck, not significantly changed. IMPRESSION: 1. Stable postoperative chest. 2. Linear atelectatic changes and/or scarring on the right. Small right effusion versus pleural thick ening. 3. No sizable pneumothorax demonstrated, 4. Stable subcutaneous emphysema right chest wall.
[2023-10-03 08:52] VITALS: BP 152/78; TEMP 98
[2023-10-03] MEDS: IPRATROPIUM-ALBUTEROL 3 ML NEB IH SCH (09:17)
[2023-10-03] MEDS: IBUPROFEN 600 MG TAB PO SCH (09:19)
[2023-10-03] MEDS: GABAPENTIN 400 MG CAP PO SCH (09:20)
[2023-10-03] MEDS: busPIRone HCl 5 MG TAB PO SCH (09:20)
[2023-10-03] MEDS: INSULN ASP PRT/INSULIN ASPART 100 UNIT/ML 10 ML VIAL SQ SCH (09:20)
[2023-10-03] MEDS: MONTELUKAST 10 MG TAB PO SCH (09:20)
[2023-10-03] MEDS: HEPARIN SODIUM,PORCINE 5,000 UNIT/ML 1 ML VIAL SQ SCH (09:20)
[2023-10-03] MEDS: VENLAFAXINE HCL ER 150 MG CAP PO SCH (09:20)
[2023-10-03] MEDS: CYCLOBENZAPRINE 10 MG TAB PO PRN (09:24)
[2023-10-03 09:36] VITALS: PULSE 82
[2023-10-03 10:15] LABS: African American GFR (CKD) 70 (>60 ml/min/1.73 sqM); Anion Gap 7 mmol/L; Blood Urea Nitrogen 20 mg/dL (7-17); Calcium 8.7 mg/dL (8.4-10.2); Carbon Dioxide 24 mmol/L (22-30); Chloride 104 mmol/L (98-107); Glucose 209 mg/dL (74-99); Non-African American GFR(CKD) 61 (>60 ml/min/1.73 sqM); Potassium 5.1 mmol/L (3.5-5.1); Sodium 135 mmol/L (137-145)
--- NOTE | 2023-10-03 10:16 | P.DS ---
Providers Date of admission: 09/29/23 05:59 Expected date of discharge: 10/03/23 Attending physician: Sreekanth James MD Consults: 09/29/23 14:05 Consult Physician Routine Consulting Provider: Zeb Waldron Consult Reason/Comments: post lobectomy Do you want consulting provider notified?: Yes Consult Physician Routine Consulting Provider: Azeem Keen Consult Reason/Comments: [facility]; [place] patient Do you want consulting provider notified?: Yes Primary care physician: Ryan Pino [place] [facility] Course: FINAL DIAGNOSIS: Right lung nodule measuring 2.6 cm on computed tomography scan, adenocarcinoma, stage I, status post robotic assisted right lower lobectomy with mediastinal lymph node dissection COPD with a preoperative FEV1 184% of predicted value and a DLCO 88% of predicted value History of hypertension Hypothyroidism Diabetes mellitus type 1 with diabetic neuropathy Restless leg syndrome Anxiety Depression Multiple sclerosis Family history of coronary artery disease Chronic ongoing tobacco dependence, quit smoking around 3 weeks ago Osteoarthritis PRINCIPAL PROCEDURE: 1. Bronchoscopy 2. Robotic-assisted thoracoscopic with right lower lobectomy 3. Mediastinal lymph node dissection 4. Intercostal nerve block2 levels HISTORY OF PRESENT ILLNESS: This is a 68-year-old female patient who follows on an outpatient basis per her primary care with Dr. Ryan Pino and with Dr. Laurie Garcia for her pulmonary care. The patient has a history of diabetes mellitus type 1 and was subsequently admitted to the hospital in May 2023 with DKA and septicemia related to her type 1 diabetes. During her admission in May she underwent a computed tomography scan of her chest which demonstrated a cavitary lesion with some minimal air in the right lower lung field measuring 2 cm. Due to the findings of a right lower lobe lung lesion she underwent a PET computed tomography scan in June 2023 which demonstrated the right lower lobe lung nodule with calcification with FDG activity below background levels. For further evaluation the patient underwent a flexible bronchoscopy, robotic- assisted bronchoscopy and addition to radial ultrasound evaluation of the pulmonary mass with robotic-assisted transbronchial needle aspirate, transbronchial biopsies, transbronchial brushing of the right lower lobe nodule and in addition to bronchial alveolar lavage completed by Dr. Garcia on 08/12/2023. The pathology results from the robotic assisted bronchoscopy demonstrated atypical cells consistent with pulmonary adenocarcinoma. Subsequently due to the positive pathology results the patient was evaluated by Dr. James from cardiothoracic surgery for further evaluation and treatment recommendations including robotic-assisted thoracoscopic right lower lobectomy. Risks and benefits of surgery were discussed with the patient and knowing and understanding the risks the patient wished to proceed with the surgical option. HOSPITAL COURSE: On 09/29/2023 the patient was admitted to the hospital and after obtaining consent was taken to the preoperative area where she was prepared in the usual fashion and subsequently taken to the operating room where Dr. James performed a bronchoscopy, robotic-assisted thoracoscopic with right lower lobectomy and mediastinal lymph node dissection. Upon completion of the surgery the patient was extubated and taken to recovery unit for further monitoring. She was eventually admitted to the intensive care unit for further recovery and hemodynamic monitoring. She was subsequently transferred to the third floor cardiac stepdown unit for further monitoring and rehabilitation. Her chest tube was removed on postoperative day #1, her oxygen was titrated down, she was tolerating an oral diet, her pain was well controlled and was ready to be discharged home on postoperative day #4. She has received written and verbal instructions regarding her medications, activity restrictions, signs and symptoms requiring physician notification and her follow-up appointment. Plan - Discharge Summary Discharge Rx Participant: No New Discharge Prescriptions: New Insulin Glargine,Hum.rec.anlog [Lantus Solostar Pen] 10 units SQ HS #1 each Ibuprofen [Motrin] 600 mg PO TID tab Acetaminophen Tab [Tylenol] 1,000 mg PO Q6HR PRN tab PRN Reason: Fever And/ Or Pain Continue rOPINIRole HCL [Requip] 1 mg PO HS Levothyroxine Sodium [Synthroid] 25 mcg PO DAILY Gabapentin [Neurontin] 800 mg PO BID #0 Insulin NPH Hum/Reg Insulin Hm [Novolin 70-30 Flexpen] 16 units SQ BID busPIRone HCL 5 mg PO BID Levothyroxine Sodium [Synthroid] 125 mcg PO DAILY Montelukast [Singulair] 10 mg PO DAILY Venlafaxine HCl [Effexor XR] 150 mg PO DAILY Cyclobenzaprine [Flexeril] 10 mg PO TID PRN #60 tab PRN Reason: Spasms Famotidine [Pepcid] 20 mg PO HS #30 tab Albuterol Sulfate [Albuterol Sulfate Hfa] 1 puff PO Q4-6H PRN PRN Reason: Wheezing Discontinued Insulin Glargine,Hum.rec.anlog [Lantus Solostar Pen] 18 unit SQ DAILY Discharge Medication List Levothyroxine Sodium [Synthroid] 125 mcg PO DAILY 03/10/22 [History] Montelukast [Singulair] 10 mg PO DAILY 07/28/22 [History] Venlafaxine HCl [Effexor XR] 150 mg PO DAILY 12/11/22 [History] Cyclobenzaprine [Flexeril] 10 mg PO TID PRN #60 tab 12/17/22 [Rx] Levothyroxine Sodium [Synthroid] 25 mcg PO DAILY 03/17/23 [History] rOPINIRole HCL [Requip] 1 mg PO HS 03/17/23 [History] Famotidine [Pepcid] 20 mg PO HS #30 tab 07/01/23 [Rx] Gabapentin [Neurontin] 800 mg PO BID #0 07/01/23 [Rx] Albuterol Sulfate [Albuterol Sulfate Hfa] 1 puff PO Q4-6H PRN 09/27/23 [History] Insulin NPH Hum/Reg Insulin Hm [Novolin 70-30 Flexpen] 16 units SQ BID 09/27/23 [History] busPIRone HCL 5 mg PO BID 09/27/23 [History] Acetaminophen Tab [Tylenol] 1,000 mg PO Q6HR PRN tab 10/03/23 [Rx] Ibuprofen [Motrin] 600 mg PO TID tab 10/03/23 [Rx] Insulin Glargine,Hum.rec.anlog [Lantus Solostar Pen] 10 units SQ HS #1 each 10/03/23 [Rx] Follow up Appointment(s)/Referral(s): Ryan Pino MD [Primary Care Provider] - As Needed Sreekanth James MD [STAFF PHYSICIAN] - 10/08/23 10:15 am Laurie Garcia MD [STAFF PHYSICIAN] - 10/26/23 10:30 am Activity/Diet/Wound Care/Special Instructions: DISCHARGE INSTRUCTIONS: 1. No driving for 2 weeks, or until physician gives their ok. 2. No lifting, pushing, or pulling more than 10 pounds for 2 weeks. The physician will advise of any restriction changes. 3. Continue pain control per as needed orders. Alternate acetaminophen (Tylenol) and ibuprofen (Motrin/Advil) for pain. 4. Continue with incentive spirometry and splinting until otherwise directed by the physician. 5. Leave chest tube dressing for 48 hours. After that, remove all dressings and shower daily. 6. Routine incision care. No powders, lotions, ointments on incisions. 7. Please call surgeon/FILM SOUND ENGINEER for temp greater than 101 F or purulent drainage from incisions. 8. Smoking cessation counseling and program information provided. Quitting smoking is the most important step you can take to improve your health. For additional information and assistance to quit smoking, please call the [place] tobacco quit line (9-664-XTRG-NOW/ ) or online: [email or web address] it-tobacco Discharge Disposition: HOME SELF-CARE
--- NOTE | 2023-10-03 12:03 | P.PN ---
Subjective Progress Note Date: 10/03/23 This is a 58-year-old female known history of multiple medical problems including COPD, tobacco dependence syndrome, type 1 diabetes, hypothyroidism, MS, patient was recently evaluated by Dr. Garcia for a 2.6 cm nodule in the right lower lobe with abnormal PET scan. Patient was aware of the mass going back to May when she had DKA and sepsis. Patient was made aware of the right lower lobe nodule, patient was seen again by Dr. Garcia on outpatient basis and she underwent robotic ion bronchoscopy, And the patient was diagnosed as having adenocarcinoma of the right lower lobe. Patient had a [id number]-cxed smoking history and continues to smoke on 10 recently. Patient also had intermittent episodes of hemoptysis, cough and wheezing. And she her weight has been fluctuating. Patient was referred to Dr. James who performed right lower lobectomy today, postoperatively I saw the patient while in the recovery room, apparently patient had intraoperative hypotension and metabolic acidosis requir ing multiple amps of bicarbonate given for her acidosis. In the recovery room, patient was still marginal, ABG on nasal cannula showed a pO2 of 229 pCO2 45 pH of 7.23 hence I recommended admitting the patient to the ICU for further and close monitoring. Patient was noted to be slightly lethargic, but arousable, and followed simple instructions. Chest x-ray showed postoperative changes and minimal atelectasis, right-sided chest tube is noted there was no evidence of pneumothorax. During my evaluation in the recovery room, patient had blood pressure 121/60, she was on 3 L nasal cannula with O2 saturation 100% on a did not seem to be in any form of distress Patient was reevaluated today on 09/30/23, patient is in the ICU, but she will be an overflow, she is resting on 2 L nasal cannula and she was transitioned earlier to room air. Her chest tube is at waterseal, no air leak, there is a small tiny apical pneumothorax, patient is doing great, asymptomatic, no cough no wheezing no shortness of breath. Labs this morning are unremarkable including CBC she did have a low potassium of 3.1 being addressed accordingly. Blood sugar was high at 343. Asked x-ray was reviewed and as noted earlier small tiny right apical pneumothorax Patient was reevaluated today on 10/01/23, patient is an overflow in the ICU, doing great. Patient denies any specific complaints, not in distress, she is on room air, her chest tube has been removed yesterday, and her chest x-ray this morning is reassuring. CBC is relatively normal basic metabolic profile is normal however creatinine jumped up to 1.58 today, baseline is 1.16 Reevaluated today on 10/02/23, patient is on the medical floor, doing well, not in any distress, she is on room air, relatively asymptomatic. Pain seems to be fairly under control, O2 sats is 97% on room air, achieving 1000 mL on her incentive spirometry. Hemodynamically stable, and her chest x-ray is reassuring. Apparently discharge planning is in place, all labs today are reassuring including CBC and basic metabolic profile The patient is seen today 10/03/2023 in follow-up on the regular medical floor. She is up ambulating in her room. Awake and alert in no acute distress. Maintaining good O2 saturations in the 90s on room air. She continues to work well with the incentive spirometer. Pulling over a thousand ML's. Today's chest x-ray continues to show a stable postoperative chest. Linear atelectatic changes in the right. Small right pleural effusion. No sizable pneumothorax. Stable subcutaneous emphysema on the right chest wall. She is status post 1 unit packed blood cells this admission. Current hemoglobin 9.9. Sodium 135. Potassium 5.1. Bicarb 24. BUN 20. Creatinine 1.02. Glucose 209. Objective - Vital Signs Vital signs: Vital Signs Temp 98.0 F 10/03/23 08:20 Pulse 82 10/03/23 09:30 Resp 18 10/03/23 08:20 BP 152/78 10/03/23 08:20 Pulse Ox 97 10/03/23 08:20 FiO2 Intake & Output 10/02/23 10/03/23 10/03/23 19:59 06:59 18:59 Intake Total 360 Balance 360 Weight Intake: Oral 360 Other: Voiding Method Toilet # Voids ABP, PAP, CO, CI - Last Documented Arterial Blood Pressure 107/42 - Exam GENERAL EXAM: Alert, active, doesn't 58-year-old female, on room air, com fortable in no apparent distress. HEAD: Normocephalic. EYES: Normal reaction of pupils, equal size. NOSE: Clear with pink turbinates. THROAT: No erythema or exudates. NECK: No masses, no JVD. CHEST: No chest wall deformity. Dressing to the right chest drain intact. LUNGS: Equal air entry with no crackles, wheeze, rhonchi or dullness. CVS: S1 and S2 normal with no audible murmur, regular rhythm. ABDOMEN: No hepatosplenomegaly, normal bowel sounds, no guarding or rigidity. SPINE: No scoliosis or deformity SKIN: No rashes CENTRAL NERVOUS SYSTEM: No focal deficits, tone is normal in all 4 extremities. EXTREMITIES: There is no peripheral edema. No clubbing, no cyanosis. Peripheral pulses are intact. - Labs CBC & Chem 7: 10/02/23 08:12 10/03/23 09:01 Labs: Abnormal Lab Results - Last 24 Hours (Table) 10/02/23 10/02/23 10/02/23 Range/Units 16:36 19:32 22:23 Sodium (137-145) mmol/L BUN (7-17) mg/dL Glucose (74-99) mg/dL POC Glucose (mg/dL) 352 H 287 H 206 H (70-110) mg/dL 10/03/23 10/03/23 Range/Units 01:39 EST 09:01 Sodium 135 L (137-145) mmol/L BUN 20 H (7-17) mg/dL Glucose 209 H (74-99) mg/dL POC Glucose (mg/dL) 175 H (70-110) mg/dL Assessment and Plan Assessment: POD #3 robotic-assisted thoracoscopic right lower lobectomy with mediastinal lymph node dissection Right lung adenocarcinoma stage I Postoperative atelectasis, expected Postoperative tiny apical pneumothorax, expected History of underlying COPD, mild. Type 1 diabetes History of seizures secondary to hypoglycemia History of multiple sclerosis Peripheral diabetic neuropathy History of optic neuritis and MS History of restless leg syndrome History of colonic polyps History of gram-negative bacteremia and sepsis Benign essential hypertension History of cervical degenerative disc disease and previous cervical decomp ression with discectomy and fusion Ex-smoker Plan: The patient was seen and evaluated Chest x-ray, labs and medications reviewed No sizeable pneumothorax Plan is for home today per CT services Follow-up in our office in 1 week This patient was seen independently by the nurse practitioner I have personally seen and examined the patient, performed the documentation and the assessment and plan as written. Number of minutes spent on the visit: 20.
--- NOTE | 2023-10-03 12:41 | P.PN ---
Subjective Progress Note Date: 10/03/23 This is a 58-year-old patient who follows with Dr. Pino. Chronic stable medical conditions include GERD, osteoarthritis, seizure disorder, hypothyroid, MS, diabetic peripheral neuropathy, optic neuritis, decreased vision in the eyes, restless leg syndrome, anxiety depression. . evaluated by Dr. Garcia for a 2.6 cm nodule in the right lower lobe with abnormal PET scan. by Dr. Garcia on outpatient basis and she underwent robotic ion bronchoscopy,diagnosed as having adenocarcinoma of the right lower lobe. Patient had a 44-[id number]-[id number] smoking history and continues to smoke on 10 recently. Patient also had intermittent episodes of hemoptysis, cough and wheezing. And she her weight has been fluctuating. Dr. James - performed right lower lobectomy today, postoperatively patient had intraoperative hypotension and metabolic acidosis requiring multiple amps of bicarbonate given for her acid osis. In the recovery room, patient was still marginal, ABG on nasal cannula showed a pO2 of 229 pCO2 45 pH of 7.23 recommended admitting the patient to the ICU. right-sided chest tube is noted there was no evidence of pneumothorax. This evening patient's ICU. Able to hold a conversation. Did eat some. Some pain at the operative site. September 30: Sitting up in a chair. In the ICU. And patient was moving in the bed apparently the chest tube came out. Breathing stable. Accu-Cheks every r unning high. Patient's serum acetone was checked came back negative. Patient's NovoLog 7030s being increased. Additional dosing will be admitted with lunchtime. 10/01. Patient seen and examined. States she feels better. Breathing is improving. Not requiring any oxygen 10/02. Patient seen and examined. Patient blood sugars better controlled, there were 2 episodes of low blood sugar levels, dose of Levemir decreased to 10 units at night. 10/03. Patient seen and examined. No further dips in blood sugar levels below 70. Continue current insulin regimen REVIEW OF SYSTEMS: CONSTITUTIONAL: No fever, no malaise,. CARDIOVASCULAR: No chest pain, no palpitations, no syncope. PULMONARY: No shortness of breath, no cough, GASTROINTESTINAL: No diarrhea, no nausea, no vomiting, no abdominal pain. NEUROLOGICAL: No headaches, no weakness, PHYSICAL EXAMINATION: GENERAL: The patient is alert and oriented x3, not in any acute distress. Well developed, well nourished. HEENT: Pupils are round and equally reacting to light. EOMI. No scleral icterus. No conjunctival pallor. Normocephalic, atraumatic. No pharyngeal erythema. No thyromegaly. CARDIOVASCULAR: S1 and S2 present. No murmurs, rubs, or gallops. PULMONARY: Chest is clear to auscultation, no wheezing or crackles. ABDOMEN: Soft, nontender, nondistended, normoactive bowel sounds. No palpable organomegaly. MUSCULOSKELETAL: No joint swelling or deformity. EXTREMITIES: No cyanosis, clubbing, or pedal edema. NEUROLOGICAL: Gross neurological examination did not reveal any focal deficits. SKIN: No rashes. Assessment and plan -adeno carcinoma of the right lower lobe tetanus post Right lower lobe lobectomy by Dr. Kasey James -Metabolic and respiratory acidosis, from sedation. -COPD in a smoker -Diabetes mellitus type 2, chronically on insulin. . Uncontrolled with hyperglycemia -Diabetic peripheral neuropathy -Hypothyroid -GERD -Restless leg syndrome Monitor vital signs Monitor CBC Monitor CMP Continue telemetry monitoring Encourage use of incentive spirometer In regards to hypothyroid continue Synthyroid In regards to diabetes mellitus, monitor blood sugar levels, continue sliding scale insulin and current NovoLog 70/30 regimen , continue Levemir 10 units at night Pulmonology following CT surgery following Labs and medication were reviewed.. Continue same treatment. Continue with symptomatic treatment. Resume home medication. Monitor labs and vitals. DVT and GI prophylaxis. Further recommendations as per clinical course of the patient Dictation was produced using [employer] dictation software. please excuse any grammatical, word or spelling errors. Objective - Vital Signs Vital signs: Vital Signs Temp 98.0 F 10/03/23 08:20 Pulse 80 10/03/23 08:20 Resp 18 10/03/23 08:20 BP 152/78 10/03/23 08:20 Pulse Ox 97 10/03/23 08:20 FiO2 Intake & Output 10/02/23 10/03/23 10/03/23 19:59 06:59 18:59 Intake Total Balance Weight Intake: Oral Other: Voiding Method Toilet # Voids ABP, PAP, CO, CI - Last Documented Arterial Blood Pressure 107/42 - Labs CBC & Chem 7: 10/02/23 08:12 11/04/23 08:12 Labs: Abnormal Lab Results - Last 24 Hours (Table) 10/02/23 10/02/23 10/02/23 Range/Units 08:12 11:16 16:36 Sodium 136 L (137-145) mmol/L BUN 24 H (7-17) mg/dL Creatinine 1.05 H (0.52-1.04) mg/dL Glucose 268 H (74-99) mg/dL POC Glucose (mg/dL) 340 H 352 H (70-110) mg/dL Calcium 8.2 L (8.4-10.2) mg/dL 10/02/23 10/02/23 10/03/23 Range/Units 19:32 22:23 01:39 EST Sodium (137-145) mmol/L BUN (7-17) mg/dL Creatinine (0.52-1.04) mg/dL Glucose (74-99) mg/dL POC Glucose (mg/dL) 287 H 206 H 175 H (70-110) mg/dL Calcium (8.4-10.2) mg/dL
== END 2023-10-03 11:51 | disposition home or self-care (01) | DRG 164 ==
LOC: 2ORMAIN 05:59 → 2SICU 14:30 → 3SCARD 10-01 22:24
PROVIDERS: ADMIT Thoracic Surgery (Cardiothoracic Vascular Surgery); ATTEND Thoracic Surgery (Cardiothoracic Vascular Surgery)
PROC: 07T74ZZ Resection of Thorax Lymphatic, Percutaneous Endoscopic Approach (ICD-10-PCS; principal; 2023-09-29 07:30)
PROC: 30233N1 Transfusion of Nonautologous Red Blood Cells into Peripheral Vein, Percutaneous Approach (ICD-10-PCS; principal; 2023-09-29 07:30)
PROC: 0BJ08ZZ Inspection of Tracheobronchial Tree, Via Natural or Artificial Opening Endoscopic (ICD-10-PCS; principal; 2023-09-29 07:30)
PROC: 0BTF4ZZ Resection of Right Lower Lung Lobe, Percutaneous Endoscopic Approach (ICD-10-PCS; principal; 2023-09-29 07:30)
PROC: 8E0W4CZ Robotic Assisted Procedure of Trunk Region, Percutaneous Endoscopic Approach (ICD-10-PCS; principal; 2023-09-29 07:30)
DX: C34.31 Malignant neoplasm of lower lobe, right bronchus or lung (principal); E87.4 Mixed disorder of acid-base balance; R04.2 Hemoptysis; H46.9 Unspecified optic neuritis; J98.11 Atelectasis; E10.42 Type 1 diabetes mellitus with diabetic polyneuropathy; E10.649 Type 1 diabetes mellitus with hypoglycemia without coma; I95.89 Other hypotension; E10.65 Type 1 diabetes mellitus with hyperglycemia; G35 Multiple sclerosis; J44.9 Chronic obstructive pulmonary disease, unspecified; G40.909 Epilepsy, unspecified, not intractable, without status epilepticus; Z79.4 Long term (current) use of insulin; E03.9 Hypothyroidism, unspecified; I10 Essential (primary) hypertension; G25.81 Restless legs syndrome; K59.00 Constipation, unspecified; F41.9 Anxiety disorder, unspecified; K21.9 Gastro-esophageal reflux disease without esophagitis; F32.A Depression, unspecified; M19.90 Unspecified osteoarthritis, unspecified site; F17.210 Nicotine dependence, cigarettes, uncomplicated; Z79.890 Hormone replacement therapy; Z79.899 Other long term (current) drug therapy; Z98.1 Arthrodesis status
CPT/HCPCS: 64999; 71045; 71046; 80048; 80053; 82009; 82805; 83735; 85025; 85027; 86850; 86900; 86901; 86920; 88305; 88309; 94640

== ENCOUNTER 2023-10-26 14:17 | Inpatient (IN) | payer MEDICARE, OTHER ==
--- NOTE | 2023-10-26 14:43 | ED ---
General Adult HPI - General Source: patient, RN notes reviewed Mode of arrival: ambulatory Limitations: no limitations <Jacob Ceja - Last Filed: 10/26/23 14:41> - General Source: RN notes reviewed, old records reviewed Limitations: no limitations - History of Present Illness -: days(s) Location: chest Consistency: constant Improves with: none Worsens with: none Associated Symptoms: confusion, loss of appetite, nausea/vomiting, shortness of breath, weakness Treatments Prior to Arrival: none <Donnie Ernst - Last Filed: 10/31/23 22:30> - General Stated complaint: MARY Time Seen by Provider: 10/26/23 14:42 - History of Present Illness Initial comments: 58-year-old female presents emergency Department chief complaint of shortness of breath. Patient states she has some mild upper Estrace symptoms. Patient states that she had a lobectomy by Dr. James on September 29. Patient states that she's feel more short of breath and usual. She patient does have lung cancer is not on any chemotherapy. (Jacob Ceja) This is a 58-year-old female DF for evaluation of severe shortness of breath difficulty breathing significant cough and congestion with difficulty catching breath. Patient has felt feverish with lightheadedness dizziness and weakness. (Donnie Ernst) - Related Data Home Medications Medication Instructions Recorded Confirmed Levothyroxine Sodium [Synthroid] 125 mcg PO DAILY 03/10/22 10/26/23 Montelukast [Singulair] 10 mg PO DAILY 07/28/22 10/26/23 Levothyroxine Sodium [Synthroid] 25 mcg PO DAILY 03/17/23 10/26/23 Albuterol Sulfate [Albuterol 1 puff PO RT-Q4H PRN 09/27/23 10/26/23 Sulfate Hfa] busPIRone HCL 5 mg PO BID 09/27/23 10/26/23 Brimonidine Tartrate [Alphagan P 1 drops RIGHT EYE BID 10/26/23 10/26/23 0.2% Ophth Soln] Gabapentin [Neurontin] 800 mg PO TID 10/26/23 10/26/23 Ibuprofen [Motrin] 800 mg PO Q8H PRN 10/26/23 10/26/23 Insulin Aspart Prot/Insuln Asp See Protocol SQ AC-TID 10/26/23 10/26/23 [Novolog MIX 70-30 Flexpen] Insulin Glargine,Hum.rec.anlog 18 units SQ DAILY 10/26/23 10/26/23 [Lantus Solostar Pen] Ketorolac 0.5% Ophth Soln [Acular 1 drops RIGHT EYE QID 10/26/23 10/26/23 0.5%] cloNIDine HCL [Catapres] 0.3 mg PO BID 10/26/23 10/26/23 rOPINIRole HCL [Requip] 1 mg PO HS 10/26/23 10/26/23 Previous Rx's Medication Instructions Recorded Famotidine [Pepcid] 20 mg PO HS #30 tab 07/01/23 HYDROcodone/APAP 5-325MG [[place] 1 tab PO Q6HR PRN #12 tab 10/08/23 5-325] Allergies Allergy/AdvReac Type Severity Reaction Status Date / Time No Known Allergies Allergy Verified 10/26/23 19:12 Review of Systems ROS Other: All systems not noted in ROS Statement are negative. <Jacob Ceja - Last Filed: 10/26/23 14:41> ROS Other: All systems not noted in ROS Statement are negative. <Donnie Ernst - Last Filed: 10/31/23 22:30> ROS Statement: Those systems with pertinent positive or pertinent negative responses have been documented in the HPI. 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 OA, efren in Rt ankle. Hx prob w/ cervical discs. Vaccinated for COVID 19 History of Any Multi-Drug Resistant Organisms: None Reported Past Surgical History: Adenoidectomy, Appendectomy, Tonsillectomy, Tubal Ligation Additional Past Surgical History / Comment(s): Laparoscopies. Pain procedures., cataract, neck fusion Past Anesthesia/Blood Transfusion Reactions: Motion Sickness Additional Past Anesthesia/Blood Transfusion Reaction / Comment(s): no blood transfusions Smoking Status: Current some day smoker Additional Past Alcohol Use History / Comment(s): Pt started smoking in 1978 and is a 1/2 ppd smoker. She has smoked more in the past. Pt states she now drinks alcohol occasionally but did drink heavily in the past. Additional Drug Use History / Comment(s): "may hit a joint occasionally" - Past Family History Mother Family Medical History: Myocardial Infarction ([place]) Additional Family Medical History / Comment(s): Mother at age 48 from coronary artery disease. Patient does not have any brothers and sisters. She has one adult son with no major medical problems. <Jacob Ceja - Last Filed: 10/26/23 14:41> General Exam General appearance: alert, in no apparent distress <Jacob Ceja - Last Filed: 10/26/23 14:41> General appearance: alert, in no apparent distress, anxious Head exam: Present: atraumatic, normocephalic, normal inspection Eye exam: Present: normal appearance, PERRL, EOMI. Absent: scleral icterus, conjunctival injection, periorbital swelling ENT exam: Present: normal exam, mucous membranes moist Neck exam: Present: normal inspection. Absent: tenderness, meningismus, lymphadenopathy Respiratory exam: Present: normal lung sounds bilaterally. Absent: respiratory distress, wheezes, rales, rhonchi, stridor Cardiovascular Exam: Present: normal rhythm, tachycardia, normal heart sounds. Absent: systolic murmur, diastolic murmur, rubs, gallop, clicks GI/Abdominal exam: Present: soft, normal bowel sounds. Absent: distended, tenderness, guarding, rebound, rigid Extremities exam: Present: normal inspection, full ROM, normal capillary refill. Absent: tenderness, pedal edema, joint swelling, calf tenderness Back exam: Present: normal inspection Neurological exam: Present: alert, oriented X3, CN II-XII intact Psychiatric exam: Present: normal affect, normal mood Skin exam: Present: warm, dry, intact, normal color. Absent: rash <Donnie Ernst - Last Filed: 10/31/23 22:30> - General Exam Comments Initial Comments: Visual Physical Exam Vital signs reviewed General: Well-appearing, nontoxic, no acute distress. Head: Normocephalic, atraumatic Eyes: PERRLA, EOMI ENT: Airway patent Chest: Nonlabored breathing Skin: No visual rash, normal skin tone Neuro: Alert and oriented 3 Musculoskeletal: No gross abnormalities (Jacob Ceja) Course <Donnie Ernst - Last Filed: 10/31/23 22:30> Vital Signs 10/26/23 10/26/23 10/26/23 15:30 17:48 18:00 Temperature 97.8 F Pulse Rate 106 H 105 H 105 H Respiratory 18 30 H 16 Rate Blood Pressure 176/78 O2 Sat by Pulse 100 100 81 L Oximetry 10/26/23 10/26/23 10/26/23 18:05 19:39 21:00 Temperature Pulse Rate 96 115 H 98 Respiratory 18 18 18 Rate Blood Pressure 135/61 156/64 146/65 O2 Sat by Pulse 100 97 98 Oximetry 10/26/23 10/27/23 10/27/23 23:00 00:00 02:00 Temperature Pulse Rate 91 85 88 Respiratory 20 21 20 Rate Blood Pressure 141/61 144/58 142/60 O2 Sat by Pulse 99 98 98 Oximetry 10/27/23 10/27/23 10/27/23 07:41 09:00 10:00 Temperature 98 F Pulse Rate 86 75 74 Respiratory 20 16 16 Rate Blood Pressure 146/71 146/71 146/71 O2 Sat by Pulse 98 98 95 Oximetry 10/27/23 10/27/23 11:29 15:53 Temperature 97.7 F 97.7 F Pulse Rate 74 80 Respiratory 20 18 Rate Blood Pressure 146/71 138/69 O2 Sat by Pulse 100 98 Oximetry - Reevaluation(s) Reevaluation #1: 10/26/23 19:12 Medical record is reviewed (Donnie Ernst) Reevaluation #2: 10/26/23 19:12 Patient symptoms are improving mildly (Donnie Ernst) Reevaluation #3: 10/26/23 19:13 Patient informed of results questions answered (Donnie Ernst) Reevaluation #4: 10/26/23 19:13 Was pt. sent in by a medical professional or institution (, PA, TON CONTAINER FILLER, urgent care, hospital, or fpc...) When possible be specific @ -no Did you speak to anyone other than the patient for history (EMS, parent, family, police, friend...)? What history was obtained from this source @ -no Did you review nursing and triage notes (agree or disagree)? Why? @ -agree Are old charts reviewed (outside hosp., previous admission, EMS record, old EKG, old radiological studies, urgent care reports/EKG's, fpc records)? Report findings @ -yes Differential Diagnosis (chest pain, altered mental status, abdominal pain women, abdominal pain men, vaginal bleeding, weakness, fever, dyspnea, syncope, headache, dizziness, GI bleed, back pain, seizure, CVA, palpatations, mental health, musculoskeletal)? @ -prior EKG interpreted by me (3pts min.). @ -yes X-rays interpreted by me (1pt min.). @ -yes CT interpreted by me (1pt min.). @ -no U/S interpreted by me (1pt. min.). @ -no What testing was considered but not performed or refused? (CT, X-rays, U/S, labs)? Why? @ -none What meds were considered but not given or refused? Why? @ -none Did you discuss the management of the patient with other professionals (professionals i.e. , PA, TON CONTAINER FILLER, lab, RT, psych nurse, child protective services social worker, de icer kit assembler, teacher, deportation officer, case preparer and liner)? Give summary @ -no Was smoking cessation discussed for >3mins.? @ -no Was critical care preformed (if so, how long)? @ -yes31 Were there social determinants of health that impacted care today? How? (Homelessness, low income, unemployed, alcoholism, drug addiction, transportation, low edu. Level, literacy, decrease access to med. care, longterm, rehab)? @ -none Was there de-escalation of care discussed even if they declined (Discuss DNR or withdrawal of care, Hospice)? DNR status @ -no What co-morbidities impacted this encounter? (DM, HTN, Smoking, COPD, CAD, Cancer, CVA, ARF, Chemo, Hep., AIDS, mental health diagnosis, sleep apnea, morbid obesity)? @ -none Was patient admitted / discharged? Hospital course, mention meds given and route, prescriptions, significant lab abnormalities, going to OR and other pertinent info. @ - 58 female will be admitted for DKA, coronavirus, coronavirus caused likely DKA severe dehydration weakness and shortness of breath. Patient will admit for supportive care Admitted Undiagnosed new problem with uncertain prognosis? @ -no Drug Therapy requiring intensive monitoring for toxicity (Heparin, Nitro, Insulin, Cardizem)? @ -no Were any procedures done? @ -no Diagnosis/symptom? @ -DKA, coronavirus, dehydration weakness Acute, or Chronic, or Acute on Chronic? @ -Acute Uncomplicated (without systemic symptoms) or Complicated (systemic symptoms)? @ -Complicated Side effects of treatment? @ -no Exacerbation, Progression, or Severe Exacerbation? @ -exacerbation Poses a threat to life or bodily function? How? (Chest pain, [place], [place], pneumonia, PE, COPD, DKA, ARF, appy, cholecystitis, CVA, Diverticulitis, Homicidal, Suicidal, threat to staff... and all critical care pts) @ -yes with significant DKA (Donnie Ernst) Reevaluation #5: 10/26/23 19:13 Differential Dyspnea: Coronary syndrome, arrhythmia, tamponade, asthma, COPD, pulmonary embolism, pneumonia, pneumothorax, pulmonary effusion, anaphylaxis, diabetic ketoacidosis, flailed chest, pulmonary contusion, diaphragmatic rupture, anemia, neuromuscular, this is not meant to be an all-inclusive list. (Donnie Ernst) - Consultations Consultation #1: Spoke with H will admit this patient (Donnie Ernst) Medical Decision Making <Jacob Ceja - Last Filed: 10/26/23 14:41> - Lab Data Result diagrams: 10/29/23 14:15 10/31/23 15:47 - Radiology Data Radiology results: report reviewed (Chest x-rays chronic changes), image reviewed <Donnie Ernst - Last Filed: 10/31/23 22:30> - Medical Decision Making I completed the quick note portion of this chart signed Jacob Ceja PA-C (Jacob Ceja) 58 female will be admitted for DKA, coronavirus, coronavirus caused likely DKA severe dehydration weakness and shortness of breath. [facility] will [facility] (Donnie Ernst) - Lab Data Lab Results 10/26/23 10/26/23 10/26/23 Range/Units 15:37 15:37 15:37 WBC 9.7 (3.8-10.6) k/uL RBC 4.44 (3.80-5.40) m/uL Hgb 13.8 D (11.4-16.0) gm/dL Hct 44.3 (34.0-46.0) % MCV 99.8 (80.0-100.0) fL MCH 31.0 (25.0-35.0) pg MCHC 31.1 (31.0-37.0) g/dL RDW 13.1 (11.5-15.5) % Plt Count 300 (150-450) k/uL MPV 11.1 Neutrophils % 83 % Lymphocytes % 9 % Monocytes % 5 % Eosinophils % 1 % Basophils % 0 % Neutrophils # 8.0 H (1.3-7.7) k/uL Lymphocytes # 0.9 L (1.0-4.8) k/uL Monocytes # 0.5 (0-1.0) k/uL Eosinophils # 0.1 (0-0.7) k/uL Basophils # 0.0 (0-0.2) k/uL Hypochromasia Marked PT 11.1 (10.0-12.5) sec INR 1.0 (<1.2) APTT 26.4 (22.0-30.0) sec VBG pH (7.31-7.41) VBG pCO2 (37-51) mmHg VBG HCO3 (24-28) mmol/L Sodium 126 L (137-145) mmol/L Potassium 5.4 H (3.5-5.1) mmol/L Chloride 92 L (98-107) mmol/L Carbon Dioxide 10 L (22-30) mmol/L Anion Gap 24 mmol/L BUN 29 H (7-17) mg/dL Creatinine 1.65 H (0.52-1.04) mg/dL Est GFR (CKD-EPI)AfAm 39 (>60 ml/min/1.73 sqM) Est GFR (CKD-EPI)NonAf 34 (>60 ml/min/1.73 sqM) Glucose 610 H* (74-99) mg/dL Plasma Lactic Acid Roger (0.7-2.0) mmol/L Calcium 9.7 (8.4-10.2) mg/dL Magnesium 1.9 (1.6-2.3) mg/dL Total Bilirubin 0.7 (0.2-1.3) mg/dL AST 41 H (14-36) U/L ALT 25 (4-34) U/L Alkaline Phosphatase 180 H (38-126) U/L Troponin I (0.000-0.034) ng/mL Total Protein 8.0 (6.3-8.2) g/dL Albumin 4.5 (3.5-5.0) g/dL Acetone, Qual (Negative) Influenza Type A (PCR) (Not Detectd) Influenza Type B (PCR) (Not Detectd) RSV (PCR) (Not Detectd) SARS-CoV-2 (PCR) (Not Detectd) 10/26/23 10/26/23 10/26/23 Range/Units 15:37 15:37 15:37 WBC (3.8-10.6) k/uL RBC (3.80-5.40) m/uL Hgb (11.4-16.0) gm/dL Hct (34.0-46.0) % MCV (80.0-100.0) fL MCH (25.0-35.0) pg MCHC (31.0-37.0) g/dL RDW (11.5-15.5) % Plt Count (150-450) k/uL MPV Neutrophils % % Lymphocytes % % Monocytes % % Eosinophils % % Basophils % % Neutrophils # (1.3-7.7) k/uL Lymphocytes # (1.0-4.8) k/uL Monocytes # (0-1.0) k/uL Eosinophils # (0-0.7) k/uL Basophils # (0-0.2) k/uL Hypochromasia PT (10.0-12.5) sec INR (<1.2) APTT (22.0-30.0) sec VBG pH (7.31-7.41) VBG pCO2 (37-51) mmHg VBG HCO3 (24-28) mmol/L Sodium (137-145) mmol/L Potassium (3.5-5.1) mmol/L Chloride (98-107) mmol/L Carbon Dioxide (22-30) mmol/L Anion Gap mmol/L BUN (7-17) mg/dL Creatinine (0.52-1.04) mg/dL Est GFR (CKD-EPI)AfAm (>60 ml/min/1.73 sqM) Est GFR (CKD-EPI)NonAf (>60 ml/min/1.73 sqM) Glucose (74-99) mg/dL Plasma Lactic Acid Roger 1.6 (0.7-2.0) mmol/L Calcium (8.4-10.2) mg/dL Magnesium (1.6-2.3) mg/dL Total Bilirubin (0.2-1.3) mg/dL AST (14-36) U/L ALT (4-34) U/L Alkaline Phosphatase (38-126) U/L Troponin I 0.018 (0.000-0.034) ng/mL Total Protein (6.3-8.2) g/dL Albumin (3.5-5.0) g/dL Acetone, Qual (Negative) Influenza Type A (PCR) Not Detected (Not Detectd) Influenza Type B (PCR) Not Detected (Not Detectd) RSV (PCR) Not Detected (Not Detectd) SARS-CoV-2 (PCR) Detected A (Not Detectd) 10/26/23 10/26/23 Range/Units 18:10 18:15 WBC (3.8-10.6) k/uL RBC (3.80-5.40) m/uL Hgb (11.4-16.0) gm/dL Hct (34.0-46.0) % MCV (80.0-100.0) fL MCH (25.0-35.0) pg MCHC (31.0-37.0) g/dL RDW (11.5-15.5) % Plt Count (150-450) k/uL MPV Neutrophils % % Lymphocytes % % Monocytes % % Eosinophils % % Basophils % % Neutrophils # (1.3-7.7) k/uL Lymphocytes # (1.0-4.8) k/uL Monocytes # (0-1.0) k/uL Eosinophils # (0-0.7) k/uL Basophils # (0-0.2) k/uL Hypochromasia PT (10.0-12.5) sec INR (<1.2) APTT (22.0-30.0) sec VBG pH 7.19 L* (7.31-7.41) VBG pCO2 26 L (37-51) mmHg VBG HCO3 10 L (24-28) mmol/L Sodium (137-145) mmol/L Potassium (3.5-5.1) mmol/L Chloride (98-107) mmol/L Carbon Dioxide (22-30) mmol/L Anion Gap mmol/L BUN (7-17) mg/dL Creatinine (0.52-1.04) mg/dL Est GFR (CKD-EPI)AfAm (>60 ml/min/1.73 sqM) Est GFR (CKD-EPI)NonAf (>60 ml/min/1.73 sqM) Glucose (74-99) mg/dL Plasma Lactic Acid Roger (0.7-2.0) mmol/L Calcium (8.4-10.2) mg/dL Magnesium (1.6-2.3) mg/dL Total Bilirubin (0.2-1.3) mg/dL AST (14-36) U/L ALT (4-34) U/L Alkaline Phosphatase (38-126) U/L Troponin I (0.000-0.034) ng/mL Total Protein (6.3-8.2) g/dL Albumin (3.5-5.0) g/dL Acetone, Qual Positive (Negative) Influenza Type A (PCR) (Not Detectd) Influenza Type B (PCR) (Not Detectd) RSV (PCR) (Not Detectd) SARS-CoV-2 (PCR) (Not Detectd) Critical Care Time Critical Care Time: Yes Total Critical Care Time: 31 <Donnie Ernst - Last Filed: 10/31/23 22:30> Disposition <Jacob Ceja - Last Filed: 10/26/23 14:41> Is patient prescribed a controlled substance at d/c from ED?: No Time of Disposition: 19:10 <Donnie Ernst - Last Filed: 10/31/23 22:30> Clinical Impression: Acute kidney injury, DKA, type 1, DKA (diabetic ketoacidosis), Weakness, Coronavirus infection, Alcohol abuse, Depression, Hyperglycemia Disposition: ADMITTED IP TO THIS HOSP Condition: Critical
[2023-10-26 16:36] LABS: ALT 25 U/L (4-34); African American GFR (CKD) 39 (>60 ml/min/1.73 sqM); Albumin 4.5 g/dL (3.5-5.0); Anion Gap 24 mmol/L; Blood Urea Nitrogen 29 mg/dL (7-17); Calcium 9.7 mg/dL (8.4-10.2); Carbon Dioxide 10 mmol/L (22-30); Chloride 92 mmol/L (98-107); Non-African American GFR(CKD) 34 (>60 ml/min/1.73 sqM); Sodium 126 mmol/L (137-145); Total Bilirubin 0.7 mg/dL (0.2-1.3)
[2023-10-26 16:37] LABS: Basophils % (A) 0 %; Eosinophils # (A) 0.1 k/uL (0-0.7); Eosinophils % (A) 1 %; HCT 44.3 % (34.0-46.0); Hypochromasia Marked; Lymphocytes # (A) 0.9 k/uL (1.0-4.8); Lymphocytes % (A) 9 %; MCHC 31.1 g/dL (31.0-37.0); MCV 99.8 fL (80.0-100.0); Mean Platelet Volume 11.1; Monocytes # (A) 0.5 k/uL (0-1.0); Monocytes % (A) 5 %; Neutrophils % (A) 83 %; Platelet Count 300 k/uL (150-450); RBC 4.44 m/uL (3.80-5.40); RDW 13.1 % (11.5-15.5); WBC 9.7 k/uL (3.8-10.6)
[2023-10-26 16:44] LABS: AST 41 U/L (14-36); Alkaline Phosphatase 180 U/L (38-126); Glucose 610 mg/dL (74-99); Magnesium 1.9 mg/dL (1.6-2.3); Potassium 5.4 mmol/L (3.5-5.1)
[2023-10-26 16:46] LABS: Partial Thromboplastin Time 26.4 sec (22.0-30.0); Prothrombin Time 11.1 sec (10.0-12.5)
[2023-10-26 16:51] LABS: HGB 13.8 gm/dL (11.4-16.0)
--- NOTE | 2023-10-26 17:09 | XR ---
EXAMINATION TYPE: XR chest 2V DATE OF EXAM: 10/26/2023 COMPARISON: 10/03/2023 HISTORY: Shortness of breath TECHNIQUE: Frontal and lateral views of the chest are obtained. FINDINGS: Scattered senescent parenchymal changes noted. Hyperinflation compatible with COPD. No evidence for infiltrate. No evidence for atelectasis. Right basilar pleural effusion with the line ar areas of atelectasis right lung. Subcutaneous air is seen previously has resolved. Right-sided rib fractures. Heart size is stable. Mediastinal structures are stable and grossly unremarkable. No evidence for hilar prominence. Degenerative changes dorsal spine. IMPRESSION: 1. Right basilar pleural effusion with the linear areas of atelectasis right lung. Subcutaneous air i s seen previously has resolved. Right-sided rib fractures.
[2023-10-26] MEDS ORDERED: SODIUM CHLORIDE 0.9% 500 ML 500 ML IV STA (17:44)
[2023-10-26] MEDS ORDERED: SODIUM CHLORIDE 0.9% 1,000 ML IV STA ×2 (17:44)
[2023-10-26] MEDS ORDERED: SODIUM CHLORIDE 0.9% 1,000 ML IV ONE (18:24)
[2023-10-26] MEDS ORDERED: D5-0.45% NACL WITH KCL 20MEQ/L 1,000 ML IV SCH (18:30)
[2023-10-26 18:31] LABS: VBG PH 7.19 (7.31-7.41)
[2023-10-26] MEDS ORDERED: NALOXONE 0.4 MG/ML 1 ML VIAL IV PRN (18:37)
[2023-10-26 19:26] LABS: Glucose,Whole Blood 559 mg/dL (70-110)
[2023-10-26] MEDS: SODIUM CHLORIDE 0.9% 1,000 ML IV SCH ×2 (19:36→23:50)
[2023-10-26] MEDS: ONDANSETRON 4 MG/2 ML VIAL IVP PRN (19:43)
[2023-10-26] MEDS: MORPHINE SULFATE 4 MG/ML SYRINGE IV PRN (19:45)
[2023-10-26] MEDS: INSULIN REGULAR 100 UNIT in SODIUM CHLORIDE 0.9% 100 ML IV SCH (19:48)
[2023-10-26 21:04] LABS: Glucose,Whole Blood 480 mg/dL (70-110)
[2023-10-26 21:17] LABS: African American GFR (CKD) 44 (>60 ml/min/1.73 sqM); Anion Gap 23 mmol/L; Blood Urea Nitrogen 29 mg/dL (7-17); Chloride 100 mmol/L (98-107); Glucose 500 mg/dL (74-99); Non-African American GFR(CKD) 38 (>60 ml/min/1.73 sqM); Phosphorus 5.2 mg/dL (2.5-4.5); Potassium 4.4 mmol/L (3.5-5.1); Sodium 131 mmol/L (137-145)
[2023-10-26 21:26] LABS: Carbon Dioxide 8 mmol/L (22-30)
[2023-10-26 22:17] LABS: Glucose,Whole Blood 362 mg/dL (70-110)
[2023-10-26] MEDS ORDERED: PANTOPRAZOLE 40 MG TABLET PO STA (23:08)
[2023-10-26] MEDS: ACETAMINOPHEN TAB 325 MG TAB PO PRN (23:21)
[2023-10-26 23:26] LABS: Glucose,Whole Blood 268 mg/dL (70-110)
[2023-10-26] MEDS: D5-0.45% NACL WITH KCL 20MEQ/L 1,000 ML IV SCH (23:49)
[2023-10-27 00:14] LABS: Glucose,Whole Blood 206 mg/dL (70-110)
[2023-10-27 00:25] LABS: African American GFR (CKD) 52 (>60 ml/min/1.73 sqM); Anion Gap 12 mmol/L; Blood Urea Nitrogen 29 mg/dL (7-17); Carbon Dioxide 15 mmol/L (22-30); Chloride 107 mmol/L (98-107); Glucose 206 mg/dL (74-99); Non-African American GFR(CKD) 45 (>60 ml/min/1.73 sqM); Sodium 134 mmol/L (137-145)
[2023-10-27 01:42] LABS: Glucose,Whole Blood 109 mg/dL (70-110)
[2023-10-27] MEDS: MORPHINE SULFATE 4 MG/ML SYRINGE IV PRN ×3 (01:47→21:03)
[2023-10-27 02:55] LABS: Glucose,Whole Blood 61 mg/dL (70-110)
[2023-10-27 03:26] LABS: Glucose,Whole Blood 69 mg/dL (70-110)
[2023-10-27 04:48] LABS: Glucose,Whole Blood 83 mg/dL (70-110)
[2023-10-27] MEDS: SODIUM CHLORIDE 0.9% 1,000 ML IV SCH ×2 (05:00→12:51)
[2023-10-27 05:44] LABS: Glucose,Whole Blood 135 mg/dL (70-110)
[2023-10-27 06:43] LABS: Glucose,Whole Blood 122 mg/dL (70-110)
[2023-10-27 07:41] LABS: Glucose,Whole Blood 98 mg/dL (70-110)
[2023-10-27] MEDS: PANTOPRAZOLE 40 MG TABLET PO SCH (07:46)
[2023-10-27 07:59] LABS: ALT 20 U/L (4-34); AST 34 U/L (14-36); African American GFR (CKD) 55 (>60 ml/min/1.73 sqM); Albumin 3.2 g/dL (3.5-5.0); Alkaline Phosphatase 116 U/L (38-126); Anion Gap 10 mmol/L; Blood Urea Nitrogen 26 mg/dL (7-17); Calcium 8.5 mg/dL (8.4-10.2); Carbon Dioxide 16 mmol/L (22-30); Chloride 109 mmol/L (98-107); Glucose 101 mg/dL (74-99); Magnesium 1.8 mg/dL (1.6-2.3); Non-African American GFR(CKD) 48 (>60 ml/min/1.73 sqM); Phosphorus 3.8 mg/dL (2.5-4.5); Potassium 4.3 mmol/L (3.5-5.1); Sodium 135 mmol/L (137-145); Total Bilirubin 0.2 mg/dL (0.2-1.3); Total Protein 6.4 g/dL (6.3-8.2)
[2023-10-27 08:10] LABS: HGB 11.5 gm/dL (11.4-16.0); MCH 30.9 pg (25.0-35.0); MCHC 32.8 g/dL (31.0-37.0); Mean Platelet Volume 10.1; Platelet Count 233 k/uL (150-450); RBC 3.72 m/uL (3.80-5.40); RDW 13.7 % (11.5-15.5); WBC 5.1 k/uL (3.8-10.6)
[2023-10-27] MEDS ORDERED: ALBUTEROL HFA INHALER INHALATION PRN ×2 (08:58→12:56)
[2023-10-27] MEDS ORDERED: IBUPROFEN 800 MG TAB PO PRN (08:58)
[2023-10-27] MEDS ORDERED: HYDROcodone/APAP 5-325MG 1 EACH TAB PO PRN (08:58)
[2023-10-27] MEDS ORDERED: DEXTROSE 50% SYRINGE 50 ML IVP PRN ×2 (09:00)
[2023-10-27] MEDS ORDERED: SODIUM CHLORIDE 0.9% 1,000 ML IV SCH (09:15)
[2023-10-27 09:24] LABS: Glucose,Whole Blood 159 mg/dL (70-110)
[2023-10-27] MEDS: INSULIN REGULAR 100 UNIT in SODIUM CHLORIDE 0.9% 100 ML IV SCH (09:24)
[2023-10-27 09:32] LABS: Band Neutrophils % 2 %; Lymphocytes # (M) 1.53 k/uL (1.0-4.8); Monocytes # (M) 0.46 k/uL (0-1.0); Neutrophils % (M) 59 %; Nucleated Red Blood Cells 0 /100 WBC (0-0); Total Cells Counted 100
[2023-10-27] MEDS: busPIRone HCl 5 MG TAB PO SCH ×2 (09:35→21:04)
[2023-10-27] MEDS: GABAPENTIN 400 MG CAP PO SCH ×3 (09:35→21:05)
[2023-10-27] MEDS: MONTELUKAST 10 MG TAB PO SCH (09:35)
[2023-10-27 09:36] LABS: RBC Morphology Normal
[2023-10-27] MEDS: BRIMONIDINE TARTRATE 0.2% DROPS 5 ML BTL RIGHT EYE SCH (09:45)
[2023-10-27] MEDS: KETOROLAC 0.5% OPHTH DROPS 5 ML BTL RIGHT EYE SCH ×4 (09:46→21:05)
[2023-10-27] MEDS: D5-0.45% NACL WITH KCL 20MEQ/L 1,000 ML IV SCH (11:26)
[2023-10-27] MEDS ORDERED: INSULIN ASPART (NovoLOG) 100 UNIT/ML VIAL SQ SCH (12:30)
[2023-10-27 12:50] LABS: Glucose,Whole Blood 251 mg/dL (70-110)
[2023-10-27] MEDS ORDERED: IPRATROPIUM-ALBUTEROL 3 ML NEB INHALATION PRN (12:51)
--- NOTE | 2023-10-27 12:59 | P.HPIM ---
History of Present Illness Patient is a pleasant 58-year-old female came in with complaints of shortness of breath found to have for COVID-19 infection patient does have history of COPD doesn't use any oxygen at home. Patient has history of lung cancer is in remission patient had a history of lobectomy for lung cancer in the past patient is complaining of musculoskeletal pain upon deep breathing secondary to excess coughing patient is still having significant coughing. Patient has wheezing on exam. Patient was started on IV insulin with concerns of diabetic ketoacidosis although patient doesn't have any anion gap. Patient takes 18 units of insulin long-acting. REVIEW OF SYSTEMS: CONSTITUTIONAL: No fever, no malaise, no fatigue. HEENT: No recent visual problems or hearing problems. Denied any sore throat. CARDIOVASCULAR: No orthopnea, PND, no palpitations, no syncope. PULMONARY: no hemoptysis. GASTROINTESTINAL: No diarrhea, no nausea, no vomiting, no abdominal pain. NEUROLOGICAL: No headaches, no weakness, no numbness. HEMATOLOGICAL: Denies any bleeding or petechiae. GENITOURINARY: Denies any burning micturition, frequency, or urgency. MUSCULOSKELETAL/RHEUMATOLOGICAL: Denies any joint pain, swelling, or any muscle pain. ENDOCRINE: Denies any polyuria or polydipsia. The rest of the 14-point review of systems is negative. PHYSICAL EXAMINATION: GENERAL: The patient is alert and oriented x3, not in any acute distress. Well developed, well nourished. HEENT: Pupils are round and equally reacting to light. EOMI. No scleral icterus. No conjunctival pallor. Normocephalic, atraumatic. No pharyngeal erythema. No thyromegaly. CARDIOVASCULAR: S1 and S2 present. No murmurs, rubs, or gallops. PULMONARY: Expiratory wheezing on exam ABDOMEN: Soft, nontender, nondistended, normoactive bowel sounds. No palpable organomegaly. MUSCULOSKELETAL: No joint swelling or deformity. EXTREMITIES: No cyanosis, clubbing, or pedal edema. NEUROLOGICAL: Gross neurological examination did not reveal any focal deficits. SKIN: No rashes. Assessment and plan -COPD with acute exacerbation secondary to COVID-19 pneumonia patient was started on oral steroids along with inhalational treatments and inhaled steroids. -Type 2 diabetes mellitus uncontrolled elevated blood sugars. Patient's blood sugars are expected to get worse because of the systemic steroids will be treated with sliding scale insulin no evidence of diabetic ketoacidosis patient will not require any IV insulin at this time. -Pleuritic chest pain musculoskeletal in nature but will order a d-dimer and if that's positive once his creatinine improves, will obtain a CT of the chest rule out pulmonary embolism -Acute renal failure prerenal azotemia patient was started on IV fluids expecting improvement in her Baseline creatinine is around 1.1 -diabetic nephropathy chronic kidney disease stage II -History of lung cancer in remission except having hyperthyroidism will be resumed on the levothyroxine Happened depression DVT prophylaxis: Subcutaneous heparin twice a day Past Medical History Past Medical History: COPD, Diabetes Mellitus, Eye Disorder, Hypertension, Musculoskeletal Disorder, Osteoarthritis (OA), Thyroid Disorder Additional Past Medical History / Comment(s): COPD, diabetes, GERD, osteoarthritis, seizure disorder secondary to hypoglycemia , hypothyroid, multiple sclerosis, diabetic peripheral neuropathy, optic neuritis, decreased vision in the eyes,; this problem, restless leg syndrome, colon polyps, anxiety depression. OA, efren in Rt ankle. Hx prob w/ cervical discs. Vaccinated for COVID 19 History of Any Multi-Drug Resistant Organisms: None Reported Past Surgical History: Adenoidectomy, Appendectomy, Tonsillectomy, Tubal Ligation Additional Past Surgical History / Comment(s): Laparoscopies. Pain procedures., cataract, neck fusion. right lower lobectomy. catarcat sx 4 days ago Past Anesthesia/Blood Transfusion Reactions: Motion Sickness Additional Past Anesthesia/Blood Transfusion Reaction / Comment(s): no blood transfusions Past Psychological History: Anxiety, Depression Smoking Status: Former smoker Past Alcohol Use History: None Reported Past Drug Use History: None Reported - Past Family History Mother Family Medical History: Myocardial Infarction (NH) Additional Family Medical History / Comment(s): Mother at age 48 from coronary artery disease. Patient does not have any brothers and sisters. She has one adult son with no major medical problems. Medications and Allergies Home Medications Medication Instructions Recorded Confirmed Type Levothyroxine Sodium [Synthroid] 125 mcg PO DAILY 03/10/22 10/26/23 History Montelukast [Singulair] 10 mg PO DAILY 07/28/22 10/26/23 History Levothyroxine Sodium [Synthroid] 25 mcg PO DAILY 03/17/23 10/26/23 History Famotidine [Pepcid] 20 mg PO HS #30 tab 07/01/23 10/26/23 Rx Albuterol Sulfate [Albuterol 1 puff PO RT-Q4H PRN 09/27/23 10/26/23 History Sulfate Hfa] busPIRone HCL 5 mg PO BID 09/27/23 10/26/23 History HYDROcodone/APAP 5-325MG [Dunnigan 1 tab PO Q6HR PRN #12 tab 10/08/23 10/26/23 Rx 5-325] Brimonidine Tartrate [Alphagan P 1 drops RIGHT EYE BID 10/26/23 10/26/23 History 0.2% Ophth Soln] Gabapentin [Neurontin] 800 mg PO TID 10/26/23 10/26/23 History Ibuprofen [Motrin] 800 mg PO Q8H PRN 10/26/23 10/26/23 History Insulin Aspart Prot/Insuln Asp See Protocol SQ AC-TID 10/26/23 10/26/23 History [Novolog MIX 70-30 Flexpen] Insulin Glargine,Hum.rec.anlog 18 units SQ DAILY 10/26/23 10/26/23 History [Lantus Solostar Pen] Ketorolac 0.5% Ophth Soln [Acular 1 drops RIGHT EYE QID 10/26/23 10/26/23 History 0.5%] cloNIDine HCL [Catapres] 0.3 mg PO BID 10/26/23 10/26/23 History rOPINIRole HCL [Requip] 1 mg PO HS 10/26/23 10/26/23 History Allergies Allergy/AdvReac Type Severity Reaction Status Date / Time No Known Allergies Allergy Verified 10/26/23 19:12 Physical Exam Vitals: Vital Signs Temp Pulse Resp BP Pulse Ox 10/27/23 11:29 97.7 F 74 20 146/71 100 10/27/23 10:00 74 16 146/71 95 10/27/23 09:00 75 16 146/71 98 10/27/23 07:41 98 F 86 20 146/71 98 10/27/23 02:00 88 20 142/60 98 10/27/23 00:00 85 21 144/58 98 10/26/23 23:00 91 20 141/61 99 10/26/23 21:00 98 18 146/65 98 10/26/23 19:39 115 H 18 156/64 97 10/26/23 18:05 96 18 135/61 100 10/26/23 18:00 105 H 16 81 L 10/26/23 17:48 105 H 30 H 100 10/26/23 15:30 97.8 F 106 H 18 176/78 100 Intake and Output 10/26/23 10/27/23 10/27/23 22:59 06:59 14:59 Intake Total 56.215 3.107 Balance 56.215 3.107 Intake: Intake, IV Titration 56.215 3.107 Amount Insulin Regular 100 unit 56.215 3.107 In Sodium Chloride 0.9% 100 ml @ 0.1 UNITS/KG/HR 7.101 mls/hr IV .[id number] COUNTS INCLUDE 234 BEDS AT THE [facility] Rx#:[id number] Other: Weight 70.307 kg Results CBC & Chem 7: 10/27/23 07:30 10/27/23 07:30 Labs: Abnormal Lab Results - Last 24 Hours (Table) 10/26/23 10/26/23 10/26/23 Range/Units 15:37 15:37 15:37 RBC (3.80-5.40) m/uL Neutrophils # 8.0 H (1.3-7.7) k/uL Lymphocytes # 0.9 L (1.0-4.8) k/uL VBG pH (7.31-7.41) VBG pCO2 (37-51) mmHg VBG HCO3 (24-28) mmol/L Sodium 126 L (137-145) mmol/L Potassium 5.4 H (3.5-5.1) mmol/L Chloride 92 L (98-107) mmol/L Carbon Dioxide 10 L (22-30) mmol/L BUN 29 H (7-17) mg/dL Creatinine 1.65 H (0.52-1.04) mg/dL Glucose 610 H* (74-99) mg/dL POC Glucose (mg/dL) (70-110) mg/dL Hemoglobin A1c (<=6.0) % Phosphorus (2.5-4.5) mg/dL AST 41 H (14-36) U/L Alkaline Phosphatase 180 H (38-126) U/L Albumin (3.5-5.0) g/dL SARS-CoV-2 (PCR) Detected A (Not Detectd) 10/26/23 10/26/23 10/26/23 Range/Units 18:15 19:20 20:50 RBC (3.80-5.40) m/uL Neutrophils # (1.3-7.7) k/uL Lymphocytes # (1.0-4.8) k/uL VBG pH 7.19 L* (7.31-7.41) VBG pCO2 26 L (37-51) mmHg VBG HCO3 10 L (24-28) mmol/L Sodium 131 L (137-145) mmol/L Potassium (3.5-5.1) mmol/L Chloride (98-107) mmol/L Carbon Dioxide 8 L* (22-30) mmol/L BUN 29 H (7-17) mg/dL Creatinine 1.49 H (0.52-1.04) mg/dL Glucose 500 H (74-99) mg/dL POC Glucose (mg/dL) 559 H (70-110) mg/dL Hemoglobin A1c (<=6.0) % Phosphorus 5.2 H (2.5-4.5) mg/dL AST (14-36) U/L Alkaline Phosphatase (38-126) U/L Albumin (3.5-5.0) g/dL SARS-CoV-2 (PCR) (Not Detectd) 10/26/23 10/26/23 10/26/23 Range/Units 20:57 22:06 23:14 RBC (3.80-5.40) m/uL Neutrophils # (1.3-7.7) k/uL Lymphocytes # (1.0-4.8) k/uL VBG pH (7.31-7.41) VBG pCO2 (37-51) mmHg VBG HCO3 (24-28) mmol/L Sodium (137-145) mmol/L Potassium (3.5-5.1) mmol/L Chloride (98-107) mmol/L Carbon Dioxide (22-30) mmol/L BUN (7-17) mg/dL Creatinine (0.52-1.04) mg/dL Glucose (74-99) mg/dL POC Glucose (mg/dL) 480 H 362 H 268 H (70-110) mg/dL Hemoglobin A1c (<=6.0) % Phosphorus (2.5-4.5) mg/dL AST (14-36) U/L Alkaline Phosphatase (38-126) U/L Albumin (3.5-5.0) g/dL SARS-CoV-2 (PCR) (Not Detectd) 10/26/23 10/27/23 10/27/23 Range/Units 23:56 00:12 02:53 RBC (3.80-5.40) m/uL Neutrophils # (1.3-7.7) k/uL Lymphocytes # (1.0-4.8) k/uL VBG pH (7.31-7.41) VBG pCO2 (37-51) mmHg VBG HCO3 (24-28) mmol/L Sodium 134 L (137-145) mmol/L Potassium (3.5-5.1) mmol/L Chloride (98-107) mmol/L Carbon Dioxide 15 L (22-30) mmol/L BUN 29 H (7-17) mg/dL Creatinine 1.30 H (0.52-1.04) mg/dL Glucose 206 H (74-99) mg/dL POC Glucose (mg/dL) 206 H 61 L (70-110) mg/dL Hemoglobin A1c (<=6.0) % Phosphorus (2.5-4.5) mg/dL AST (14-36) U/L Alkaline Phosphatase (38-126) U/L Albumin (3.5-5.0) g/dL SARS-CoV-2 (PCR) (Not Detectd) 10/27/23 10/27/23 10/27/23 Range/Units 03:25 05:43 06:42 RBC (3.80-5.40) m/uL Neutrophils # (1.3-7.7) k/uL Lymphocytes # (1.0-4.8) k/uL VBG pH (7.31-7.41) VBG pCO2 (37-51) mmHg VBG HCO3 (24-28) mmol/L Sodium (137-145) mmol/L Potassium (3.5-5.1) mmol/L Chloride (98-107) mmol/L Carbon Dioxide (22-30) mmol/L BUN (7-17) mg/dL Creatinine (0.52-1.04) mg/dL Glucose (74-99) mg/dL POC Glucose (mg/dL) 69 L 135 H 122 H (70-110) mg/dL Hemoglobin A1c (<=6.0) % Phosphorus (2.5-4.5) mg/dL AST (14-36) U/L Alkaline Phosphatase (38-126) U/L Albumin (3.5-5.0) g/dL SARS-CoV-2 (PCR) (Not Detectd) 10/27/23 10/27/23 10/27/23 Range/Units 07:30 07:30 07:30 RBC 3.72 L (3.80-5.40) m/uL Neutrophils # (1.3-7.7) k/uL Lymphocytes # (1.0-4.8) k/uL VBG pH (7.31-7.41) VBG pCO2 (37-51) mmHg VBG HCO3 (24-28) mmol/L Sodium 135 L (137-145) mmol/L Potassium (3.5-5.1) mmol/L Chloride 109 H (98-107) mmol/L Carbon Dioxide 16 L (22-30) mmol/L BUN 26 H (7-17) mg/dL Creatinine 1.24 H (0.52-1.04) mg/dL Glucose 101 H (74-99) mg/dL POC Glucose (mg/dL) (70-110) mg/dL Hemoglobin A1c 8.1 H (<=6.0) % Phosphorus (2.5-4.5) mg/dL AST (14-36) U/L Alkaline Phosphatase (38-126) U/L Albumin 3.2 L (3.5-5.0) g/dL SARS-CoV-2 (PCR) (Not Detectd) 10/27/23 10/27/23 Range/Units 09:22 12:49 RBC (3.80-5.40) m/uL Neutrophils # (1.3-7.7) k/uL Lymphocytes # (1.0-4.8) k/uL VBG pH (7.31-7.41) VBG pCO2 (37-51) mmHg VBG HCO3 (24-28) mmol/L Sodium (137-145) mmol/L Potassium (3.5-5.1) mmol/L Chloride (98-107) mmol/L Carbon Dioxide (22-30) mmol/L BUN (7-17) mg/dL Creatinine (0.52-1.04) mg/dL Glucose (74-99) mg/dL POC Glucose (mg/dL) 159 H 251 H (70-110) mg/dL Hemoglobin A1c (<=6.0) % Phosphorus (2.5-4.5) mg/dL AST (14-36) U/L Alkaline Phosphatase (38-126) U/L Albumin (3.5-5.0) g/dL SARS-CoV-2 (PCR) (Not Detectd)
[2023-10-27] MEDS: predniSONE 20 MG TAB PO SCH (13:36)
[2023-10-27] MEDS: INSULIN ASPART (NovoLOG) 100 UNIT/ML VIAL SQ SCH ×3 (13:36→21:04)
[2023-10-27] MEDS: HEPARIN SODIUM,PORCINE 5,000 UNIT/ML 1 ML VIAL SQ SCH ×2 (13:37→21:09)
[2023-10-27] MEDS: INSULIN DETEMIR (LEVEMIR) 100 UNIT/ML SYR SQ SCH (14:00)
[2023-10-27] MEDS: ALBUTEROL HFA INHALER INHALATION SCH ×2 (15:49→21:20)
[2023-10-27] MEDS ORDERED: ALBUTEROL HFA INHALER INHALATION SCH (16:00)
[2023-10-27] MEDS ORDERED: IPRATROPIUM-ALBUTEROL 3 ML NEB INHALATION SCH (16:00)
[2023-10-27 17:05] LABS: Glucose,Whole Blood 156 mg/dL (70-110)
[2023-10-27] MEDS: SODIUM CHLORIDE 0.45% 1,000 ML IV SCH (17:15)
[2023-10-27] MEDS: ONDANSETRON 4 MG/2 ML VIAL IVP PRN (18:07)
[2023-10-27] MEDS: ACETAMINOPHEN TAB 325 MG TAB PO PRN (19:48)
[2023-10-27] MEDS ORDERED: BUDESONIDE 0.5 MG/2 ML NEBU INHALATION SCH (20:00)
[2023-10-27 20:38] LABS: Glucose,Whole Blood 210 mg/dL (70-110)
[2023-10-27] MEDS: FAMOTIDINE 20 MG TAB PO SCH (21:04)
[2023-10-27] MEDS: FLUTICASONE 110 MCG INHALER INHALATION SCH (21:20)
[2023-10-28] MEDS: ONDANSETRON 4 MG/2 ML VIAL IVP PRN ×4 (02:20→20:55)
[2023-10-28] MEDS: MORPHINE SULFATE 4 MG/ML SYRINGE IV PRN ×3 (02:21→12:07)
[2023-10-28] MEDS: SODIUM CHLORIDE 0.45% 1,000 ML IV SCH (02:21)
[2023-10-28 06:11] LABS: Glucose,Whole Blood 375 mg/dL (70-110)
[2023-10-28] MEDS: PANTOPRAZOLE 40 MG TABLET PO SCH (06:20)
[2023-10-28] MEDS: LEVOTHYROXINE 25 MCG TAB PO SCH (06:20)
[2023-10-28] MEDS: LEVOTHYROXINE 125 MCG TAB PO SCH (06:20)
[2023-10-28] MEDS: INSULIN ASPART (NovoLOG) 100 UNIT/ML VIAL SQ SCH ×3 (06:20→20:57)
[2023-10-28 07:19] LABS: African American GFR (CKD) 64 (>60 ml/min/1.73 sqM); Anion Gap 19 mmol/L; Blood Urea Nitrogen 18 mg/dL (7-17); Calcium 9.2 mg/dL (8.4-10.2); Chloride 104 mmol/L (98-107); Glucose 395 mg/dL (74-99); Non-African American GFR(CKD) 55 (>60 ml/min/1.73 sqM); Potassium 5.1 mmol/L (3.5-5.1); Sodium 130 mmol/L (137-145)
[2023-10-28 07:50] LABS: Carbon Dioxide 7 mmol/L (22-30)
[2023-10-28] MEDS: HEPARIN SODIUM,PORCINE 5,000 UNIT/ML 1 ML VIAL SQ SCH ×2 (08:41→20:57)
[2023-10-28] MEDS: predniSONE 20 MG TAB PO SCH (08:41)
[2023-10-28] MEDS: MONTELUKAST 10 MG TAB PO SCH (08:41)
[2023-10-28] MEDS: GABAPENTIN 400 MG CAP PO SCH ×3 (08:41→20:56)
[2023-10-28] MEDS: busPIRone HCl 5 MG TAB PO SCH ×2 (08:41→20:56)
[2023-10-28] MEDS: BRIMONIDINE TARTRATE 0.2% DROPS 5 ML BTL RIGHT EYE SCH ×2 (08:41→21:46)
[2023-10-28] MEDS: INSULIN DETEMIR (LEVEMIR) 100 UNIT/ML SYR SQ SCH (08:56)
[2023-10-28] MEDS: KETOROLAC 0.5% OPHTH DROPS 5 ML BTL RIGHT EYE SCH ×4 (09:02→20:57)
[2023-10-28] MEDS: FLUTICASONE 110 MCG INHALER INHALATION SCH ×2 (09:11→21:28)
[2023-10-28] MEDS: ALBUTEROL HFA INHALER INHALATION SCH ×4 (09:11→21:28)
[2023-10-28 11:31] LABS: Glucose,Whole Blood 150 mg/dL (70-110)
[2023-10-28] MEDS ORDERED: Magnesium Replacement Protocol 1 EACH MISC MISCELLANE PRN (11:46)
[2023-10-28] MEDS ORDERED: Potassium Replacement Protocol 1 EACH MISC MISCELLANE PRN (11:46)
[2023-10-28] MEDS ORDERED: INSULIN REGULAR BOLUS (FROM DRIP BAG) IV ONE (11:46)
[2023-10-28] MEDS ORDERED: SODIUM CHLORIDE 0.9% 1,000 ML IV SCH (12:00)
[2023-10-28] MEDS: SODIUM CHLORIDE 0.9% 1,000 ML IV SCH (12:00)
[2023-10-28] MEDS ORDERED: INSULIN REGULAR 100 UNIT in SODIUM CHLORIDE 0.9% 100 ML IV SCH (12:00)
[2023-10-28] MEDS: TIOTROPIUM 2.5 MCG INHALER INHALATION SCH (12:24)
[2023-10-28] MEDS ORDERED: INSULIN ASPART (NovoLOG) 100 UNIT/ML VIAL SQ SCH (12:30)
[2023-10-28 12:31] LABS: VBG PH 7.25 (7.31-7.41)
[2023-10-28 12:56] LABS: African American GFR (CKD) 69 (>60 ml/min/1.73 sqM); Anion Gap 12 mmol/L; Blood Urea Nitrogen 18 mg/dL (7-17); Carbon Dioxide 13 mmol/L (22-30); Chloride 109 mmol/L (98-107); Glucose 134 mg/dL (74-99); Non-African American GFR(CKD) 60 (>60 ml/min/1.73 sqM); Phosphorus 2.7 mg/dL (2.5-4.5); Potassium 3.9 mmol/L (3.5-5.1); Sodium 134 mmol/L (137-145)
[2023-10-28 13:03] VITALS: BMI 30.2
[2023-10-28] MEDS ORDERED: DEXTROSE 50% SYRINGE 50 ML IVP PRN ×2 (13:48)
[2023-10-28] MEDS: HYDROcodone/APAP 7.5-325MG 1 EACH TAB PO PRN ×2 (15:34→20:56)
[2023-10-28 17:10] LABS: Glucose,Whole Blood 139 mg/dL (70-110)
[2023-10-28 17:59] LABS: African American GFR (CKD) 65 (>60 ml/min/1.73 sqM); Anion Gap 15 mmol/L; Blood Urea Nitrogen 18 mg/dL (7-17); Carbon Dioxide 11 mmol/L (22-30); Chloride 108 mmol/L (98-107); Glucose 147 mg/dL (74-99); Non-African American GFR(CKD) 56 (>60 ml/min/1.73 sqM); Phosphorus 3.3 mg/dL (2.5-4.5); Potassium 4.8 mmol/L (3.5-5.1); Sodium 134 mmol/L (137-145)
[2023-10-28 20:29] LABS: Glucose,Whole Blood 177 mg/dL (70-110)
[2023-10-28] MEDS: FAMOTIDINE 20 MG TAB PO SCH (20:56)
--- NOTE | 2023-10-28 23:05 | XR ---
PROCEDURE: XR ribs RT w pa chest xray - 3V DATE AND TIME: 10/28/2023 5:36 PM CLINICAL INDICATION: [facility]; follow up. Inpatient. TECHNIQUE: Department protocol. Total 5 views. COMPARISON: 10/26/2023: 10/08/1998 FINDINGS: There appears to be a right lateral eighth rib fracture. This is not well-seen and can be better visu alized using CT. No associated pneumothorax, but [id number] right pleural effusion and small amount of right-si ded atelectasis is present. IMPRESSION: Evidence of right lateral eighth rib fracture as discussed.
--- NOTE | 2023-10-29 05:57 | P.PN ---
Subjective Progress Note Date: 10/29/23 Patient is a pleasant 58-year-old female came in with complaints of shortness of breath found to have for COVID-19 infection patient does have history of COPD doesn't use any oxygen at home. Patient has history of lung cancer is in remission patient had a history of lobectomy for lung cancer in the past patient is complaining of musculoskeletal pain upon deep breathing secondary to excess coughing patient is still having significant coughing. Patient has wheezing on exam. Patient was started on IV insulin with concerns of diabetic ketoacidosis although patient doesn't have any anion gap. Patient takes 18 units of insulin long-acting. 10/28/2023 Patient is evaluated today on the medical floor. She has signifiicant pain over the right rib cage states it is worse with coughing. She overall reports not feeling well. On admission chest xray there is evidence of rib fractures on the right side. We will repeat xray of the ribs to further evaluate. Patient will need to be placed back on insulin gtt due to bicarb of 7 and increasing blood glucose. REVIEW OF SYSTEMS: CONSTITUTIONAL: No fever, no malaise, no fatigue. HEENT: No recent visual problems or hearing problems. Denied any sore throat. CARDIOVASCULAR: No orthopnea, PND, no palpitations, no syncope. PULMONARY: no hemoptysis. GASTROINTESTINAL: No diarrhea, no nausea, no vomiting, no abdominal pain. NEUROLOGICAL: No headaches, no weakness, no numbness. PHYSICAL EXAMINATION: GENERAL: The patient is alert and oriented x3, not in any acute distress. Well developed, well nourished. HEENT: Pupils are round and equally reacting to light. EOMI. No scleral icterus. No conjunctival pallor. Normocephalic, atraumatic. No pharyngeal erythema. No thyromegaly. CARDIOVASCULAR: S1 and S2 present. No murmurs, rubs, or gallops. PULMONARY: Expiratory wheezing on exam ABDOMEN: Soft, nontender, nondistended, normoactive bowel sounds. No palpable organomegaly. MUSCULOSKELETAL: No joint swelling or deformity. EXTREMITIES: No cyanosis, clubbing, or pedal edema. NEUROLOGICAL: Gross neurological examination did not reveal any focal deficits. SKIN: No rashes. Assessment and plan -COPD with acute exacerbation secondary to COVID-19 pneumonia patient was started on oral steroids along with inhalational treatments and inhaled s teroids. -Type 2 diabetes mellitus uncontrolled elevated blood sugars. Patient's blood sugars are expected to get worse because of the systemic steroids. Patient is in DKA, was taken off the insulin gtt however her bicarb is 7 today and will recommend to put patient back on the insulin gtt at this time. -Pleuritic chest pain musculoskeletal in nature, D-Dimer elevated this could be due to the acute covid however we will wait for creatinine to improve before ordering a CTA of the chest. -Acute renal failure prerenal azotemia patient was started on IV fluids expecting improvement in her Baseline creatinine is around 1.1 -diabetic nephropathy chronic kidney disease stage II -History of lung cancer in remission -hypothyroidism will be resumed on the levothyroxine DVT prophylaxis: Subcutaneous heparin twice a day GI Porophylaxis Full Code The impression and plan of care has been dictated by Mariza Rees, Nurse Practitioner as directed. Dr. Orin MD I have performed a history and physical examination and medical decision making of this patient, discussed the same with the dictator, and agree with the dictators assessment and plan as written, documented as a scribe. Based on total visit time, I have performed more than 50% of this visit. Objective - Vital Signs Vital signs: Vital Signs Temp 97.8 F 10/29/23 02:10 Pulse 72 10/29/23 02:10 Resp 18 10/29/23 02:10 BP 151/85 10/29/23 02:10 Pulse Ox 100 10/29/23 02:10 FiO2 Intake & Output 10/28/23 10/28/23 10/29/23 06:59 18:59 06:59 Intake Total 500 525 Output Total 550 Balance -50 525 Weight 70.307 kg Intake: Intake, IV Titration 525 Amount Sodium Chloride 0.9% 1, 525 000 ml @ 75 mls/hr IV . [id number] [facility] Rx#:[id number] Oral 500 Output: Emesis 550 Other: # Voids 3 # Emeses 1 - Labs CBC & Chem 7: 10/27/23 07:30 10/28/23 16:58 Labs: Abnormal Lab Results - Last 24 Hours (Table) 10/28/23 10/28/23 10/28/23 Range/Units 06:09 06:31 11:24 VBG pH (7.31-7.41) VBG pCO2 (37-51) mmHg VBG HCO3 (24-28) mmol/L Sodium 130 L (137-145) mmol/L Chloride (98-107) mmol/L Carbon Dioxide 7 L* (22-30) mmol/L BUN 18 H (7-17) mg/dL Creatinine 1.10 H (0.52-1.04) mg/dL Glucose 395 H (74-99) mg/dL POC Glucose (mg/dL) 375 H 150 H (70-110) mg/dL 10/28/23 10/28/23 10/28/23 Range/Units 12:04 12:04 16:58 VBG pH 7.25 L (7.31-7.41) VBG pCO2 34 L (37-51) mmHg VBG HCO3 15 L (24-28) mmol/L Sodium 134 L 134 L (137-145) mmol/L Chloride 109 H 108 H (98-107) mmol/L Carbon Dioxide 13 L 11 L (22-30) mmol/L BUN 18 H 18 H (7-17) mg/dL Creatinine 1.09 H (0.52-1.04) mg/dL Glucose 134 H 147 H (74-99) mg/dL POC Glucose (mg/dL) (70-110) mg/dL 10/28/23 10/28/23 Range/Units 17:06 20:26 VBG pH (7.31-7.41) VBG pCO2 (37-51) mmHg VBG HCO3 (24-28) mmol/L Sodium (137-145) mmol/L Chloride (98-107) mmol/L Carbon Dioxide (22-30) mmol/L BUN (7-17) mg/dL Creatinine (0.52-1.04) mg/dL Glucose (74-99) mg/dL POC Glucose (mg/dL) 139 H 177 H (70-110) mg/dL
[2023-10-29] MEDS: LEVOTHYROXINE 125 MCG TAB PO SCH (06:02)
[2023-10-29] MEDS: LEVOTHYROXINE 25 MCG TAB PO SCH (06:02)
[2023-10-29] MEDS: PANTOPRAZOLE 40 MG TABLET PO SCH (06:03)
[2023-10-29 06:12] LABS: Glucose,Whole Blood 250 mg/dL (70-110)
[2023-10-29] MEDS: INSULIN ASPART (NovoLOG) 100 UNIT/ML VIAL SQ SCH ×4 (06:58→20:54)
[2023-10-29] MEDS ORDERED: INSULIN DETEMIR (LEVEMIR) 100 UNIT/ML SYR SQ SCH (07:00)
[2023-10-29] MEDS: SODIUM CHLORIDE 0.9% 1,000 ML IV SCH ×3 (08:26→17:42)
[2023-10-29] MEDS: predniSONE 20 MG TAB PO SCH (08:28)
[2023-10-29] MEDS: MONTELUKAST 10 MG TAB PO SCH (08:29)
[2023-10-29] MEDS: GABAPENTIN 400 MG CAP PO SCH ×3 (08:29→20:36)
[2023-10-29] MEDS: KETOROLAC 0.5% OPHTH DROPS 5 ML BTL RIGHT EYE SCH ×4 (08:29→20:36)
[2023-10-29] MEDS: BRIMONIDINE TARTRATE 0.2% DROPS 5 ML BTL RIGHT EYE SCH ×2 (08:29→21:11)
[2023-10-29] MEDS: busPIRone HCl 5 MG TAB PO SCH ×2 (08:29→20:36)
[2023-10-29] MEDS: HEPARIN SODIUM,PORCINE 5,000 UNIT/ML 1 ML VIAL SQ SCH ×2 (08:29→20:35)
[2023-10-29] MEDS: TIOTROPIUM 2.5 MCG INHALER INHALATION SCH (08:57)
[2023-10-29] MEDS: ALBUTEROL HFA INHALER INHALATION SCH ×4 (08:57→20:29)
[2023-10-29] MEDS: FLUTICASONE 110 MCG INHALER INHALATION SCH ×2 (08:57→20:29)
[2023-10-29 10:56] LABS: Basophils # (A) 0 X 10*3/uL (0.00-0.10); Basophils % (A) 0 %; Eosinophils # (A) 0 X 10*3/uL (0.04-0.35); Eosinophils % (A) 0 %; HCT 37.5 % (37.2-46.3); HGB 11.9 g/dL (12.0-15.0); Lymphocytes # (A) 1.51 X 10*3/uL (0.90-5.00); Lymphocytes % (A) 34.2 %; MCH 30.3 pg (27.0-32.0); MCHC 31.7 g/dL (32.0-37.0); MCV 95.4 FL (80.0-97.0); Mean Platelet Volume 11.7 FL (9.5-12.2); Monocytes % (A) 13.6 %; NRBC Per 100 WBC 0 X 10*3/uL (0.00-0.01); Platelet Count 229 X 10*3/uL (140-440); RBC 3.93 X 10*6/uL (4.10-5.20); RDW 13.5 % (11.5-14.5); WBC 4.42 X 10*3/uL (4.50-10.00)
[2023-10-29 11:02] LABS: BUN/Creat Ratio 14.27 Ratio (12.00-20.00); Blood Urea Nitrogen 15.7 mg/dL (9.0-27.0); Calcium 9.3 mg/dL (8.7-10.3); Carbon Dioxide 13.7 mmol/L (21.6-31.8); Chloride 105 mmol/L (96-109); Glucose 256 mg/dL (70-110); Potassium 4.4 mmol/L (3.5-5.5); Sodium 134 mmol/L (135-145)
[2023-10-29 11:36] LABS: Glucose,Whole Blood 347 mg/dL (70-110)
[2023-10-29] MEDS ORDERED: INSULIN REGULAR BOLUS (FROM DRIP BAG) IV ONE (12:19)
[2023-10-29] MEDS ORDERED: INSULIN ASPART (NovoLOG) 100 UNIT/ML VIAL SQ SCH (12:30)
[2023-10-29 14:15] LABS: Glucose,Whole Blood 154 mg/dL (70-110)
[2023-10-29] MEDS: HYDROcodone/APAP 7.5-325MG 1 EACH TAB PO PRN ×2 (14:19→20:35)
[2023-10-29] MEDS: INSULIN REGULAR 100 UNIT in SODIUM CHLORIDE 0.9% 100 ML IV SCH (14:20)
--- NOTE | 2023-10-29 14:20 | P.PN ---
Subjective Progress Note Date: 10/29/23 Patient is a pleasant 58-year-old female came in with complaints of shortness of breath found to have for COVID-19 infection patient does have history of COPD doesn't use any oxygen at home. Patient has history of lung cancer is in remission patient had a history of lobectomy for lung cancer in the past patient is complaining of musculoskeletal pain upon deep breathing secondary to excess coughing patient is still having significant coughing. Patient has wheezing on exam. Patient was started on IV insulin with concerns of diabetic ketoacidosis although patient doesn't have any anion gap. Patient takes 18 units of insulin long-acting. 10/28/2023 Patient is evaluated today on the medical floor. She has signifiicant pain over the right rib cage states it is worse with coughing. She overall reports not feeling well. On admission chest xray there is evidence of rib fractures on the right side. We will repeat xray of the ribs to further evaluate. Patient will need to be placed back on insulin gtt due to bicarb of 7 and increasing blood glucose. 10/29/2023 Patient on medical floor. Was not placed on insulin gtt yesterday. Continues to not feel well. Was acetone positive, sugars today back up to the 300s. This AM anion gap is now 15, CO2 11. Rib xray done today confirms right lateral rib fracture and small to moderate right pleural effusion. proBNP 438. Patient receiving albuterol and spiriva and fluticasone states the inhalers are helping. Transitioned to oral prednisone. REVIEW OF SYSTEMS: CONSTITUTIONAL: No fever, no malaise, no fatigue. HEENT: No recent visual problems or hearing problems. Denied any sore throat. CARDIOVASCULAR: No orthopnea, PND, no palpitations, no syncope. PULMONARY: no hemoptysis. GASTROINTESTINAL: No diarrhea, no nausea, no vomiting, no abdominal pain. NEUROLOGICAL: No headaches, no weakness, no numbness. PHYSICAL EXAMINATION: GENERAL: The patient is alert and oriented x3, not in any acute distress. Well developed, well nourished. HEENT: Pupils are round and equally reacting to light. EOMI. No scleral icterus. No conjunctival pallor. Normocephalic, atraumatic. No pharyngeal erythema. No thyromegaly. CARDIOVASCULAR: S1 and S2 present. No murmurs, rubs, or gallops. PULMONARY: Expiratory wheezing on exam ABDOMEN: Soft, nontender, nondistended, normoactive bowel sounds. No palpable organomegaly. MUSCULOSKELETAL: No joint swelling or deformity. EXTREMITIES: No cyanosis, clubbing, or pedal edema. NEUROLOGICAL: Gross neurological examination did not reveal any focal deficits. SKIN: No rashes. Assessment and plan -COPD with acute exacerbation secondary to COVID-19 pneumonia patient was started on oral steroids along with inhalational treatments and inhaled steroids. -Type 2 diabetes mellitus uncontrolled elevated blood sugars. Patient is in DKA, was taken off the insulin gtt however back in DKA recommending to transfer to [address] [place] [id number] for insulin gtt. -Anion gap metabolic acidosis secondary to diabetic ketoacidosis expected to improve with insulin gtt -Steroid induced hyperglycemia -Pleuritic chest pain musculoskeletal in nature, D-Dimer elevated this could be due to the acute covid however we will wait for creatinine to improve before ordering a CTA of the chest. Patient does have a fracture rib #8 on the right s gabrielle this is likely contributing to the musculoskeletal chest pain. Encouraged to take pain medication and continue with incentive spirometer 10 x an hour while awake. -Acute renal failure prerenal azotemia patient was started on IV fluids expecting improvement in her Baseline creatinine is around 1.1 -diabetic nephropathy chronic kidney disease stage II -History of lung cancer in remission with recent right lower lobe ectomy. -hypothyroidism will be resumed on the levothyroxine -Hypertension started on amlodipine, cannot use ACEI due to renal function. DVT prophylaxis: Subcutaneous heparin twice a day GI Porophylaxis: Protonix Full Code The impression and plan of care has been dictated by Mariza Rees, Nurse Practitioner as directed. Dr. Orin MD I have performed a history and physical examination and medical decision making of this patient, discussed the same with the dictator, and agree with the dictators assessment and plan as written, documented as a scribe. Based on total visit time, I have performed more than 50% of this visit. Objective - Vital Signs Vital signs: Vital Signs Temp 97.9 F 10/29/23 07:26 Pulse 70 10/29/23 07:26 Resp 18 10/29/23 07:26 BP 184/73 10/29/23 07:26 Pulse Ox 100 10/29/23 07:26 FiO2 Intake & Output 10/28/23 10/29/23 10/29/23 18:59 06:59 18:59 Intake Total 500 525 Output Total 550 Balance -50 525 Weight 70.307 kg Intake: Intake, IV Titration 525 Amount Sodium Chloride 0.9% 1, 525 000 ml @ 75 mls/hr IV . [id number] [facility] Rx#:[id number] Oral 500 Output: Emesis 550 Other: # Voids 2 - Labs CBC & Chem 7: 10/29/23 07:10 10/29/23 07:10 Labs: Abnormal Lab Results - Last 24 Hours (Table) 10/28/23 10/28/23 10/28/23 Range/Units 12:04 12:04 16:58 WBC (4.50-10.00) X 10*3/uL RBC (4.10-5.20) X 10*6/uL Hgb (12.0-15.0) g/dL MCHC (32.0-37.0) g/dL Eosinophils # (0.04-0.35) X 10*3/uL VBG pH 7.25 L (7.31-7.41) VBG pCO2 34 L (37-51) mmHg VBG HCO3 15 L (24-28) mmol/L Sodium 134 L 134 L (137-145) mmol/L Chloride 109 H 108 H (98-107) mmol/L Carbon Dioxide 13 L 11 L (22-30) mmol/L Anion Gap (4.00-12.00) mmol/L BUN 18 H 18 H (7-17) mg/dL Creatinine 1.09 H (0.52-1.04) mg/dL Est GFR (CKD-EPI) (>=60) Glucose 134 H 147 H (74-99) mg/dL POC Glucose (mg/dL) (70-110) mg/dL Hemoglobin A1c (<=6.0) % 10/28/23 10/28/23 10/29/23 Range/Units 17:06 20:26 06:11 WBC (4.50-10.00) X 10*3/uL RBC (4.10-5.20) X 10*6/uL Hgb (12.0-15.0) g/dL MCHC (32.0-37.0) g/dL Eosinophils # (0.04-0.35) X 10*3/uL VBG pH (7.31-7.41) VBG pCO2 (37-51) mmHg VBG HCO3 (24-28) mmol/L Sodium (137-145) mmol/L Chloride (98-107) mmol/L Carbon Dioxide (22-30) mmol/L Anion Gap (4.00-12.00) mmol/L BUN (7-17) mg/dL Creatinine (0.52-1.04) mg/dL Est GFR (CKD-EPI) (>=60) Glucose (74-99) mg/dL POC Glucose (mg/dL) 139 H 177 H 250 H (70-110) mg/dL Hemoglobin A1c (<=6.0) % 10/29/23 10/29/23 10/29/23 Range/Units 07:10 07:10 07:10 WBC 4.42 L (4.50-10.00) X 10*3/uL RBC 3.93 L (4.10-5.20) X 10*6/uL Hgb 11.9 L (12.0-15.0) g/dL MCHC 31.7 L (32.0-37.0) g/dL Eosinophils # 0 L (0.04-0.35) X 10*3/uL VBG pH (7.31-7.41) VBG pCO2 (37-51) mmHg VBG HCO3 (24-28) mmol/L Sodium 134 L (137-145) mmol/L Chloride (98-107) mmol/L Carbon Dioxide 13.7 L (22-30) mmol/L Anion Gap 15.30 H (4.00-12.00) mmol/L BUN (7-17) mg/dL Creatinine (0.52-1.04) mg/dL Est GFR (CKD-EPI) 58 L (>=60) Glucose 256 H (74-99) mg/dL POC Glucose (mg/dL) (70-110) mg/dL Hemoglobin A1c 8.6 H (<=6.0) % 10/29/23 Range/Units 11:34 WBC (4.50-10.00) X 10*3/uL RBC (4.10-5.20) X 10*6/uL Hgb (12.0-15.0) g/dL MCHC (32.0-37.0) g/dL Eosinophils # (0.04-0.35) X 10*3/uL VBG pH (7.31-7.41) VBG pCO2 (37-51) mmHg VBG HCO3 (24-28) mmol/L Sodium (137-145) mmol/L Chloride (98-107) mmol/L Carbon Dioxide (22-30) mmol/L Anion Gap (4.00-12.00) mmol/L BUN (7-17) mg/dL Creatinine (0.52-1.04) mg/dL Est GFR (CKD-EPI) (>=60) Glucose (74-99) mg/dL POC Glucose (mg/dL) 347 H (70-110) mg/dL Hemoglobin A1c (<=6.0) % Assessment and Plan Time with Patient: Less than 30
[2023-10-29 15:03] LABS: Glucose,Whole Blood 112 mg/dL (70-110)
[2023-10-29 15:33] LABS: Basophils % (A) 0 %; Eosinophils % (A) 0 %; HCT 39.4 % (34.0-46.0); HGB 13.1 gm/dL (11.4-16.0); Lymphocytes # (A) 0.6 k/uL (1.0-4.8); Lymphocytes % (A) 10 %; MCH 31.5 pg (25.0-35.0); MCHC 33.3 g/dL (31.0-37.0); MCV 94.6 fL (80.0-100.0); Mean Platelet Volume 9.7; Monocytes # (A) 0.3 k/uL (0-1.0); Monocytes % (A) 4 %; Neutrophils # (A) 4.8 k/uL (1.3-7.7); Neutrophils % (A) 84 %; Platelet Count 209 k/uL (150-450); RBC 4.16 m/uL (3.80-5.40); RDW 13.5 % (11.5-15.5); WBC 5.7 k/uL (3.8-10.6)
[2023-10-29 15:47] LABS: African American GFR (CKD) 79 (>60 ml/min/1.73 sqM); Anion Gap 15 mmol/L; Blood Urea Nitrogen 15 mg/dL (7-17); Carbon Dioxide 14 mmol/L (22-30); Chloride 106 mmol/L (98-107); Glucose 137 mg/dL (74-99); Non-African American GFR(CKD) 69 (>60 ml/min/1.73 sqM); Potassium 3.8 mmol/L (3.5-5.1); Sodium 135 mmol/L (137-145)
[2023-10-29 16:07] LABS: Glucose,Whole Blood 111 mg/dL (70-110)
[2023-10-29 16:11] LABS: African American GFR (CKD) 81 (>60 ml/min/1.73 sqM); Anion Gap 14 mmol/L; Blood Urea Nitrogen 15 mg/dL (7-17); Carbon Dioxide 14 mmol/L (22-30); Chloride 106 mmol/L (98-107); Glucose 117 mg/dL (74-99); Non-African American GFR(CKD) 71 (>60 ml/min/1.73 sqM); Potassium 3.8 mmol/L (3.5-5.1); Sodium 134 mmol/L (137-145)
[2023-10-29 17:00] LABS: Glucose,Whole Blood 140 mg/dL (70-110)
[2023-10-29] MEDS: amLODIPine 5 MG TAB PO SCH (17:40)
[2023-10-29] MEDS: MORPHINE SULFATE 4 MG/ML SYRINGE IV PRN (17:40)
[2023-10-29] MEDS: D5-0.45% NACL WITH KCL 20MEQ/L 1,000 ML IV SCH ×2 (17:40→23:59)
[2023-10-29] MEDS: ONDANSETRON 4 MG/2 ML VIAL IVP PRN (17:52)
[2023-10-29 18:17] LABS: Glucose,Whole Blood 177 mg/dL (70-110)
[2023-10-29 19:25] LABS: Glucose,Whole Blood 219 mg/dL (70-110)
[2023-10-29 19:56] LABS: African American GFR (CKD) 85 (>60 ml/min/1.73 sqM); Anion Gap 15 mmol/L; Blood Urea Nitrogen 15 mg/dL (7-17); Carbon Dioxide 14 mmol/L (22-30); Chloride 105 mmol/L (98-107); Glucose 211 mg/dL (74-99); Non-African American GFR(CKD) 73 (>60 ml/min/1.73 sqM); Potassium 4.1 mmol/L (3.5-5.1); Sodium 134 mmol/L (137-145)
[2023-10-29 20:11] LABS: Glucose,Whole Blood 204 mg/dL (70-110)
[2023-10-29] MEDS: FAMOTIDINE 20 MG TAB PO SCH (20:35)
[2023-10-29 22:15] LABS: Glucose,Whole Blood 295 mg/dL (70-110)
[2023-10-29] MEDS: guaiFENesin SYRUP 100MG/5ML 200 MG/10 ML CUP PO PRN (22:59)
[2023-10-29] MEDS: BENZONATATE 100 MG CAP PO PRN (22:59)
[2023-10-29 23:02] LABS: Glucose,Whole Blood 301 mg/dL (70-110)
[2023-10-30] MEDS: SODIUM CHLORIDE 0.9% 1,000 ML IV SCH ×5 (00:02→20:11)
[2023-10-30 00:06] LABS: Glucose,Whole Blood 305 mg/dL (70-110)
[2023-10-30 00:47] LABS: African American GFR (CKD) 85 (>60 ml/min/1.73 sqM); Anion Gap 14 mmol/L; Blood Urea Nitrogen 15 mg/dL (7-17); Calcium 9.3 mg/dL (8.4-10.2); Carbon Dioxide 14 mmol/L (22-30); Chloride 103 mmol/L (98-107); Glucose 322 mg/dL (74-99); Magnesium 1.5 mg/dL (1.6-2.3); Non-African American GFR(CKD) 73 (>60 ml/min/1.73 sqM); Potassium 4.3 mmol/L (3.5-5.1); Sodium 131 mmol/L (137-145)
[2023-10-30 01:10] LABS: Glucose,Whole Blood 290 mg/dL (70-110)
[2023-10-30 02:07] LABS: Glucose,Whole Blood 284 mg/dL (70-110)
[2023-10-30 03:01] LABS: Glucose,Whole Blood 248 mg/dL (70-110)
[2023-10-30] MEDS: HYDROcodone/APAP 7.5-325MG 1 EACH TAB PO PRN ×2 (03:04→13:36)
[2023-10-30 04:12] LABS: Glucose,Whole Blood 235 mg/dL (70-110)
[2023-10-30 05:07] LABS: Glucose,Whole Blood 204 mg/dL (70-110)
[2023-10-30 06:00] LABS: Glucose,Whole Blood 169 mg/dL (70-110)
[2023-10-30] MEDS: LEVOTHYROXINE 25 MCG TAB PO SCH (06:04)
[2023-10-30] MEDS: INSULIN ASPART (NovoLOG) 100 UNIT/ML VIAL SQ SCH ×4 (06:04→20:11)
[2023-10-30] MEDS: guaiFENesin SYRUP 100MG/5ML 200 MG/10 ML CUP PO PRN (06:04)
[2023-10-30] MEDS: LEVOTHYROXINE 125 MCG TAB PO SCH (06:04)
[2023-10-30] MEDS: BENZONATATE 100 MG CAP PO PRN (06:04)
[2023-10-30] MEDS: PANTOPRAZOLE 40 MG TABLET PO SCH (06:06)
[2023-10-30] MEDS: D5-0.45% NACL WITH KCL 20MEQ/L 1,000 ML IV SCH (06:17)
[2023-10-30] MEDS: INSULIN REGULAR 100 UNIT in SODIUM CHLORIDE 0.9% 100 ML IV SCH ×2 (06:21→17:12)
[2023-10-30 06:53] LABS: African American GFR (CKD) 90 (>60 ml/min/1.73 sqM); Anion Gap 11 mmol/L; Blood Urea Nitrogen 13 mg/dL (7-17); Calcium 9.6 mg/dL (8.4-10.2); Carbon Dioxide 15 mmol/L (22-30); Chloride 107 mmol/L (98-107); Glucose 171 mg/dL (74-99); Magnesium 1.5 mg/dL (1.6-2.3); Non-African American GFR(CKD) 78 (>60 ml/min/1.73 sqM); Potassium 3.7 mmol/L (3.5-5.1); Sodium 133 mmol/L (137-145)
[2023-10-30 07:11] LABS: Glucose,Whole Blood 132 mg/dL (70-110)
[2023-10-30] MEDS: HEPARIN SODIUM,PORCINE 5,000 UNIT/ML 1 ML VIAL SQ SCH ×2 (08:03→20:09)
[2023-10-30] MEDS: amLODIPine 5 MG TAB PO SCH (08:03)
[2023-10-30] MEDS: busPIRone HCl 5 MG TAB PO SCH ×2 (08:03→20:09)
[2023-10-30] MEDS: GABAPENTIN 400 MG CAP PO SCH ×3 (08:03→20:09)
[2023-10-30] MEDS: MONTELUKAST 10 MG TAB PO SCH (08:03)
[2023-10-30] MEDS: predniSONE 20 MG TAB PO SCH (08:03)
[2023-10-30] MEDS: BRIMONIDINE TARTRATE 0.2% DROPS 5 ML BTL RIGHT EYE SCH ×2 (08:04→20:10)
[2023-10-30] MEDS: KETOROLAC 0.5% OPHTH DROPS 5 ML BTL RIGHT EYE SCH ×4 (08:04→20:10)
[2023-10-30 08:10] LABS: Glucose,Whole Blood 92 mg/dL (70-110)
[2023-10-30] MEDS: DEXTROSE 5%-0.9% NACL 1,000 ML IV SCH ×2 (08:23→20:18)
[2023-10-30] MEDS: MORPHINE SULFATE 4 MG/ML SYRINGE IV PRN ×2 (08:25→20:09)
[2023-10-30] MEDS: ONDANSETRON 4 MG/2 ML VIAL IVP PRN ×2 (08:25→20:09)
[2023-10-30 08:44] LABS: Glucose,Whole Blood 77 mg/dL (70-110)
[2023-10-30 09:14] LABS: Glucose,Whole Blood 109 mg/dL (70-110)
[2023-10-30] MEDS: FLUTICASONE 110 MCG INHALER INHALATION SCH ×2 (09:34→21:38)
[2023-10-30] MEDS: ALBUTEROL HFA INHALER INHALATION SCH ×4 (09:34→21:38)
[2023-10-30] MEDS: TIOTROPIUM 2.5 MCG INHALER INHALATION SCH (09:34)
[2023-10-30 10:03] LABS: Glucose,Whole Blood 137 mg/dL (70-110)
--- NOTE | 2023-10-30 10:45 | P.PN ---
Subjective Progress Note Date: 10/30/23 Patient is a pleasant 58-year-old female came in with complaints of shortness of breath found to have for COVID-19 infection patient does have history of COPD doesn't use any oxygen at home. Patient has history of lung cancer is in remission patient had a history of lobectomy for lung cancer in the past patient is complaining of musculoskeletal pain upon deep breathing secondary to excess coughing patient is still having significant coughing. Patient has wheezing on exam. Patient was started on IV insulin with concerns of diabetic ketoacidosis although patient doesn't have any anion gap. Patient takes 18 units of insulin long-acting. 10/28/2023 Patient is evaluated today on the medical floor. She has signifiicant pain over the right rib cage states it is worse with coughing. She overall reports not feeling well. On admission chest xray there is evidence of rib fractures on the right side. We will repeat xray of the ribs to further evaluate. Patient will need to be placed back on insulin gtt due to bicarb of 7 and increasing blood glucose. 10/29/2023 Patient on medical floor. Was not placed on insulin gtt yesterday. Continues to not feel well. Was acetone positive, sugars today back up to the 300s. This AM anion gap is now 15, CO2 11. Rib xray done today confirms right lateral rib fracture and small to moderate right pleural effusion. proBNP 438. Patient receiving albuterol and spiriva and fluticasone states the inhalers are helping. Transitioned to oral prednisone. 10/30/2023 Patient upgraded to [address] continues on insulin gtt. Anion gap improving to 14 will monitor labs closely. Continues on oral prednisone. Reports the rib pain has improved today. On room air. REVIEW OF SYSTEMS: CONSTITUTIONAL: No fever, no malaise, no fatigue. HEENT: No recent visual problems or hearing problems. Denied any sore throat. CARDIOVASCULAR: No orthopnea, PND, no palpitations, no syncope. PULMONARY: no hemoptysis. Reports congestion GASTROINTESTINAL: No diarrhea, no nausea, no vomiting, no abdominal pain. NEUROLOGICAL: No headaches, no weakness, no numbness. PHYSICAL EXAMINATION: GENERAL: The patient is alert and oriented x3, not in any acute distress. Well developed, well nourished. HEENT: Pupils are round and equally reacting to light. EOMI. No scleral icterus. No conjunctival pallor. Normocephalic, atraumatic. No pharyngeal erythema. No thyromegaly. CARDIOVASCULAR: S1 and S2 present. No murmurs, rubs, or gallops. PULMONARY: Expiratory wheezing on exam Coarse scattered ronchi ABDOMEN: Soft, nontender, nondistended, normoactive bowel sounds. No palpable o rganomegaly. MUSCULOSKELETAL: No joint swelling or deformity. EXTREMITIES: No cyanosis, clubbing, or pedal edema. NEUROLOGICAL: Gross neurological examination did not reveal any focal deficits. SKIN: No rashes. Assessment and plan -COPD with acute exacerbation secondary to COVID-19 pneumonia patient continues on oral steroids, inhalered steroids -Type 2 diabetes mellitus uncontrolled elevated blood sugars. Patient is in DKA remains on insulin gtt repeat labs pending can transition off gtt once anion gap less than 10. -Anion gap metabolic acidosis secondary to diabetic ketoacidosis expected to improve with insulin gtt -Hyponatremia fluids changed to D5 normal saline this is expected to improve. -Steroid induced hyperglycemia -Pleuritic chest pain musculoskeletal in nature, D-Dimer elevated this could be due to the acute covid however we will wait for creatinine to improve before ord ering a CTA of the chest. Patient does have a fracture rib #8 on the right side this is likely contributing to the musculoskeletal chest pain. Encouraged to take pain medication and continue with incentive spirometer 10 x an hour while awake. -Acute renal failure prerenal azotemia patient was started on IV fluids expecting creatinine has normalized. -diabetic nephropathy chronic kidney disease stage II -History of lung cancer in remission with recent right lower lobe ectomy. -hypothyroidism will be resumed on the levothyroxine -Hypertension started on amlodipine renal function improved will add low dose lisinopril for improved BP control. DVT prophylaxis: Subcutaneous heparin twice a day GI Porophylaxis: Protonix Full Code The impression and plan of care has been dictated by Mariza Rees, Nurse Practitioner as directed. Dr. Orin MD I have performed a history and physical examination and medical decision making of this patient, discussed the same with the dictator, and agree with the dictators assessment and plan as written, documented as a scribe. Based on total visit time, I have performed more than 50% of this visit. Objective - Vital Signs Vital signs: Vital Signs Temp 98.1 F 10/29/23 20:00 Pulse 73 10/30/23 04:00 Resp 16 10/30/23 04:00 BP 153/70 10/30/23 04:00 Pulse Ox 99 10/30/23 04:00 FiO2 Intake & Output 10/29/23 10/30/23 10/30/23 18:59 06:59 18:59 Intake Total 10.444 583.300 7.947 Balance 10.444 583.300 7.947 Intake: Intake, IV Titration 10.444 43.300 7.947 Amount Insulin Regular 100 unit 10.444 43.300 7.947 In Sodium Chloride 0.9% 100 ml @ 0.1 UNITS/KG/HR 7.101 mls/hr IV .[id number] [facility] Rx#:[id number] Oral 540 Other: Voiding Method Bedside Commode # Voids 2 2 - Labs CBC & Chem 7: 10/29/23 14:15 10/30/23 23:56 Labs: Abnormal Lab Results - Last 24 Hours (Table) 10/29/23 10/29/23 10/29/23 Range/Units 07:10 07:10 07:10 WBC 4.42 L (4.50-10.00) X 10*3/uL RBC 3.93 L (4.10-5.20) X 10*6/uL Hgb 11.9 L (12.0-15.0) g/dL MCHC 31.7 L (32.0-37.0) g/dL Lymphocytes # (1.0-4.8) k/uL Eosinophils # 0 L (0.04-0.35) X 10*3/uL Sodium 134 L (135-145) mmol/L Carbon Dioxide 13.7 L (21.6-31.8) mmol/L Anion Gap 15.30 H (4.00-12.00) mmol/L Est GFR (CKD-EPI) 58 L (>=60) Glucose 256 H (70-110) mg/dL POC Glucose (mg/dL) (70-110) mg/dL Hemoglobin A1c 8.6 H (<=6.0) % Phosphorus (2.5-4.5) mg/dL Magnesium (1.6-2.3) mg/dL 10/29/23 10/29/23 10/29/23 Range/Units 11:34 14:08 14:15 WBC (4.50-10.00) X 10*3/uL RBC (4.10-5.20) X 10*6/uL Hgb (12.0-15.0) g/dL MCHC (32.0-37.0) g/dL Lymphocytes # 0.6 L (1.0-4.8) k/uL Eosinophils # (0.04-0.35) X 10*3/uL Sodium (135-145) mmol/L Carbon Dioxide (21.6-31.8) mmol/L Anion Gap (4.00-12.00) mmol/L Est GFR (CKD-EPI) (>=60) Glucose (70-110) mg/dL POC Glucose (mg/dL) 347 H 154 H (70-110) mg/dL Hemoglobin A1c (<=6.0) % Phosphorus (2.5-4.5) mg/dL Magnesium (1.6-2.3) mg/dL 10/29/23 10/29/23 10/29/23 Range/Units 14:15 14:59 15:40 WBC (4.50-10.00) X 10*3/uL RBC (4.10-5.20) X 10*6/uL Hgb (12.0-15.0) g/dL MCHC (32.0-37.0) g/dL Lymphocytes # (1.0-4.8) k/uL Eosinophils # (0.04-0.35) X 10*3/uL Sodium 135 L (135-145) mmol/L Carbon Dioxide 14 L (21.6-31.8) mmol/L Anion Gap (4.00-12.00) mmol/L Est GFR (CKD-EPI) (>=60) Glucose 137 H (70-110) mg/dL POC Glucose (mg/dL) 112 H (70-110) mg/dL Hemoglobin A1c (<=6.0) % Phosphorus 1.9 L (2.5-4.5) mg/dL Magnesium (1.6-2.3) mg/dL 10/29/23 10/29/23 10/29/23 Range/Units 15:40 16:04 16:58 WBC (4.50-10.00) X 10*3/uL RBC (4.10-5.20) X 10*6/uL Hgb (12.0-15.0) g/dL MCHC (32.0-37.0) g/dL Lymphocytes # (1.0-4.8) k/uL Eosinophils # (0.04-0.35) X 10*3/uL Sodium 134 L (135-145) mmol/L Carbon Dioxide 14 L (21.6-31.8) mmol/L Anion Gap (4.00-12.00) mmol/L Est GFR (CKD-EPI) (>=60) Glucose 117 H (70-110) mg/dL POC Glucose (mg/dL) 111 H 140 H (70-110) mg/dL Hemoglobin A1c (<=6.0) % Phosphorus (2.5-4.5) mg/dL Magnesium (1.6-2.3) mg/dL 10/29/23 10/29/23 10/29/23 Range/Units 18:10 19:06 19:30 WBC (4.50-10.00) X 10*3/uL RBC (4.10-5.20) X 10*6/uL Hgb (12.0-15.0) g/dL MCHC (32.0-37.0) g/dL Lymphocytes # (1.0-4.8) k/uL Eosinophils # (0.04-0.35) X 10*3/uL Sodium (135-145) mmol/L Carbon Dioxide (21.6-31.8) mmol/L Anion Gap (4.00-12.00) mmol/L Est GFR (CKD-EPI) (>=60) Glucose (70-110) mg/dL POC Glucose (mg/dL) 177 H 219 H (70-110) mg/dL Hemoglobin A1c (<=6.0) % Phosphorus 2.4 L (2.5-4.5) mg/dL Magnesium (1.6-2.3) mg/dL 10/29/23 10/29/23 10/29/23 Range/Units 19:30 20:00 22:03 WBC (4.50-10.00) X 10*3/uL RBC (4.10-5.20) X 10*6/uL Hgb (12.0-15.0) g/dL MCHC (32.0-37.0) g/dL Lymphocytes # (1.0-4.8) k/uL Eosinophils # (0.04-0.35) X 10*3/uL Sodium 134 L (135-145) mmol/L Carbon Dioxide 14 L (21.6-31.8) mmol/L Anion Gap (4.00-12.00) mmol/L Est GFR (CKD-EPI) (>=60) Glucose 211 H (70-110) mg/dL POC Glucose (mg/dL) 204 H 295 H (70-110) mg/dL Hemoglobin A1c (<=6.0) % Phosphorus (2.5-4.5) mg/dL Magnesium (1.6-2.3) mg/dL 10/29/23 10/29/23 10/30/23 Range/Units 22:51 23:55 01:09 WBC (4.50-10.00) X 10*3/uL RBC (4.10-5.20) X 10*6/uL Hgb (12.0-15.0) g/dL MCHC (32.0-37.0) g/dL Lymphocytes # (1.0-4.8) k/uL Eosinophils # (0.04-0.35) X 10*3/uL Sodium (135-145) mmol/L Carbon Dioxide (21.6-31.8) mmol/L Anion Gap (4.00-12.00) mmol/L Est GFR (CKD-EPI) (>=60) Glucose (70-110) mg/dL POC Glucose (mg/dL) 301 H 305 H 290 H (70-110) mg/dL Hemoglobin A1c (<=6.0) % Phosphorus (2.5-4.5) mg/dL Magnesium (1.6-2.3) mg/dL 10/30/23 10/30/23 10/30/23 Range/Units 01:56 02:59 04:01 WBC (4.50-10.00) X 10*3/uL RBC (4.10-5.20) X 10*6/uL Hgb (12.0-15.0) g/dL MCHC (32.0-37.0) g/dL Lymphocytes # (1.0-4.8) k/uL Eosinophils # (0.04-0.35) X 10*3/uL Sodium (135-145) mmol/L Carbon Dioxide (21.6-31.8) mmol/L Anion Gap (4.00-12.00) mmol/L Est GFR (CKD-EPI) (>=60) Glucose (70-110) mg/dL POC Glucose (mg/dL) 284 H 248 H 235 H (70-110) mg/dL Hemoglobin A1c (<=6.0) % Phosphorus (2.5-4.5) mg/dL Magnesium (1.6-2.3) mg/dL 10/30/23 10/30/23 10/30/23 Range/Units 04:55 05:58 06:18 WBC (4.50-10.00) X 10*3/uL RBC (4.10-5.20) X 10*6/uL Hgb (12.0-15.0) g/dL MCHC (32.0-37.0) g/dL Lymphocytes # (1.0-4.8) k/uL Eosinophils # (0.04-0.35) X 10*3/uL Sodium 133 L (135-145) mmol/L Carbon Dioxide 15 L (21.6-31.8) mmol/L Anion Gap (4.00-12.00) mmol/L Est GFR (CKD-EPI) (>=60) Glucose 171 H (70-110) mg/dL POC Glucose (mg/dL) 204 H 169 H (70-110) mg/dL Hemoglobin A1c (<=6.0) % Phosphorus (2.5-4.5) mg/dL Magnesium 1.5 L (1.6-2.3) mg/dL 10/30/23 10/30/23 Range/Units 07:09 23:56 WBC (4.50-10.00) X 10*3/uL RBC (4.10-5.20) X 10*6/uL Hgb (12.0-15.0) g/dL MCHC (32.0-37.0) g/dL Lymphocytes # (1.0-4.8) k/uL Eosinophils # (0.04-0.35) X 10*3/uL Sodium 131 L (135-145) mmol/L Carbon Dioxide 14 L (21.6-31.8) mmol/L Anion Gap (4.00-12.00) mmol/L Est GFR (CKD-EPI) (>=60) Glucose 322 H (70-110) mg/dL POC Glucose (mg/dL) 132 H (70-110) mg/dL Hemoglobin A1c (<=6.0) % Phosphorus (2.5-4.5) mg/dL Magnesium 1.5 L (1.6-2.3) mg/dL Assessment and Plan Time with Patient: Less than 30
[2023-10-30 11:08] LABS: Glucose,Whole Blood 208 mg/dL (70-110)
[2023-10-30 11:19] LABS: African American GFR (CKD) 84 (>60 ml/min/1.73 sqM); Anion Gap 12 mmol/L; Blood Urea Nitrogen 13 mg/dL (7-17); Calcium 9.8 mg/dL (8.4-10.2); Carbon Dioxide 15 mmol/L (22-30); Chloride 109 mmol/L (98-107); Glucose 148 mg/dL (74-99); Magnesium 1.6 mg/dL (1.6-2.3); Non-African American GFR(CKD) 73 (>60 ml/min/1.73 sqM); Phosphorus 2.1 mg/dL (2.5-4.5); Potassium 4.1 mmol/L (3.5-5.1); Sodium 136 mmol/L (137-145)
[2023-10-30] MEDS: guaiFENesin 600 MG TABLET.ER PO SCH ×2 (11:23→20:09)
[2023-10-30 12:01] LABS: Glucose,Whole Blood 216 mg/dL (70-110)
[2023-10-30 13:05] LABS: Glucose,Whole Blood 236 mg/dL (70-110)
[2023-10-30 14:18] LABS: Glucose,Whole Blood 307 mg/dL (70-110)
[2023-10-30 15:08] LABS: Glucose,Whole Blood 277 mg/dL (70-110)
[2023-10-30 16:10] LABS: Glucose,Whole Blood 223 mg/dL (70-110)
[2023-10-30 17:11] LABS: Glucose,Whole Blood 196 mg/dL (70-110)
[2023-10-30 18:37] LABS: Glucose,Whole Blood 195 mg/dL (70-110)
[2023-10-30 19:03] LABS: Glucose,Whole Blood 219 mg/dL (70-110)
[2023-10-30 20:10] LABS: Glucose,Whole Blood 168 mg/dL (70-110)
[2023-10-30] MEDS: MELATONIN 5 MG TABLET PO PRN (20:10)
[2023-10-30] MEDS: FAMOTIDINE 20 MG TAB PO SCH (20:10)
[2023-10-30 20:51] LABS: African American GFR (CKD) 82 (>60 ml/min/1.73 sqM); Anion Gap 11 mmol/L; Blood Urea Nitrogen 13 mg/dL (7-17); Calcium 9.8 mg/dL (8.4-10.2); Carbon Dioxide 14 mmol/L (22-30); Chloride 109 mmol/L (98-107); Glucose 202 mg/dL (74-99); Non-African American GFR(CKD) 71 (>60 ml/min/1.73 sqM); Potassium 3.9 mmol/L (3.5-5.1); Sodium 134 mmol/L (137-145)
[2023-10-30 21:10] LABS: Glucose,Whole Blood 194 mg/dL (70-110)
[2023-10-30 22:07] LABS: Glucose,Whole Blood 195 mg/dL (70-110)
[2023-10-30 23:05] LABS: Glucose,Whole Blood 211 mg/dL (70-110)
[2023-10-31 00:07] LABS: Glucose,Whole Blood 193 mg/dL (70-110)
[2023-10-31 00:55] LABS: African American GFR (CKD) 79 (>60 ml/min/1.73 sqM); Anion Gap 3 mmol/L; Blood Urea Nitrogen 12 mg/dL (7-17); Calcium 9.5 mg/dL (8.4-10.2); Carbon Dioxide 15 mmol/L (22-30); Chloride 116 mmol/L (98-107); Glucose 213 mg/dL (74-99); Non-African American GFR(CKD) 69 (>60 ml/min/1.73 sqM); Sodium 134 mmol/L (137-145)
[2023-10-31 00:56] LABS: Glucose,Whole Blood 197 mg/dL (70-110)
[2023-10-31 01:57] LABS: Glucose,Whole Blood 203 mg/dL (70-110)
[2023-10-31 03:25] LABS: Glucose,Whole Blood 244 mg/dL (70-110)
[2023-10-31] MEDS: SODIUM CHLORIDE 0.9% 1,000 ML IV SCH ×2 (03:30→07:42)
[2023-10-31] MEDS: MORPHINE SULFATE 4 MG/ML SYRINGE IV PRN ×3 (04:07→20:51)
[2023-10-31 04:12] LABS: Glucose,Whole Blood 220 mg/dL (70-110)
[2023-10-31 04:58] LABS: Glucose,Whole Blood 220 mg/dL (70-110)
[2023-10-31 05:03] LABS: African American GFR (CKD) 79 (>60 ml/min/1.73 sqM); Anion Gap 10 mmol/L; Blood Urea Nitrogen 12 mg/dL (7-17); Calcium 9.4 mg/dL (8.4-10.2); Carbon Dioxide 14 mmol/L (22-30); Chloride 110 mmol/L (98-107); Glucose 255 mg/dL (74-99); Non-African American GFR(CKD) 69 (>60 ml/min/1.73 sqM); Potassium 3.8 mmol/L (3.5-5.1); Sodium 134 mmol/L (137-145)
[2023-10-31] MEDS: LEVOTHYROXINE 25 MCG TAB PO SCH (05:58)
[2023-10-31] MEDS: LEVOTHYROXINE 125 MCG TAB PO SCH (05:58)
[2023-10-31 06:10] LABS: Glucose,Whole Blood 232 mg/dL (70-110)
[2023-10-31 07:16] LABS: Glucose,Whole Blood 292 mg/dL (70-110)
[2023-10-31] MEDS: PANTOPRAZOLE 40 MG TABLET PO SCH (07:39)
[2023-10-31] MEDS: GABAPENTIN 400 MG CAP PO SCH ×3 (07:39→21:27)
[2023-10-31] MEDS: amLODIPine 5 MG TAB PO SCH (07:39)
[2023-10-31] MEDS: HEPARIN SODIUM,PORCINE 5,000 UNIT/ML 1 ML VIAL SQ SCH (07:39)
[2023-10-31] MEDS: busPIRone HCl 5 MG TAB PO SCH ×2 (07:40→20:20)
[2023-10-31] MEDS: HYDROcodone/APAP 7.5-325MG 1 EACH TAB PO PRN ×2 (07:40→20:19)
[2023-10-31] MEDS: predniSONE 20 MG TAB PO SCH (07:40)
[2023-10-31] MEDS: lisinopriL 5 MG TAB PO SCH (07:40)
[2023-10-31] MEDS: guaiFENesin 600 MG TABLET.ER PO SCH ×2 (07:40→20:20)
[2023-10-31] MEDS: DEXTROSE 5%-0.9% NACL 1,000 ML IV SCH (07:41)
[2023-10-31] MEDS: BRIMONIDINE TARTRATE 0.2% DROPS 5 ML BTL RIGHT EYE SCH ×2 (07:41→20:21)
[2023-10-31] MEDS: INSULIN ASPART (NovoLOG) 100 UNIT/ML VIAL SQ SCH ×4 (07:41→20:18)
[2023-10-31] MEDS: MONTELUKAST 10 MG TAB PO SCH (07:41)
[2023-10-31] MEDS: KETOROLAC 0.5% OPHTH DROPS 5 ML BTL RIGHT EYE SCH ×4 (07:42→20:21)
[2023-10-31] MEDS: INSULIN REGULAR 100 UNIT in SODIUM CHLORIDE 0.9% 100 ML IV SCH (07:56)
[2023-10-31 08:19] LABS: Glucose,Whole Blood 291 mg/dL (70-110)
[2023-10-31 09:26] LABS: Glucose,Whole Blood 227 mg/dL (70-110)
[2023-10-31] MEDS: FLUTICASONE 110 MCG INHALER INHALATION SCH ×2 (09:40→22:11)
[2023-10-31] MEDS: ALBUTEROL HFA INHALER INHALATION SCH ×4 (09:40→22:10)
[2023-10-31] MEDS: TIOTROPIUM 2.5 MCG INHALER INHALATION SCH (09:41)
[2023-10-31 10:15] LABS: Glucose,Whole Blood 158 mg/dL (70-110)
--- NOTE | 2023-10-31 10:41 | P.PN ---
Subjective Progress Note Date: 10/31/23 Patient is a pleasant 58-year-old female came in with complaints of shortness of breath found to have for COVID-19 infection patient does have history of COPD doesn't use any oxygen at home. Patient has history of lung cancer is in remission patient had a history of lobectomy for lung cancer in the past patient is complaining of musculoskeletal pain upon deep breathing secondary to excess coughing patient is still having significant coughing. Patient has wheezing on exam. Patient was started on IV insulin with concerns of diabetic ketoacidosis although patient doesn't have any anion gap. Patient takes 18 units of insulin long-acting. 10/28/2023 Patient is evaluated today on the medical floor. She has signifiicant pain over the right rib cage states it is worse with coughing. She overall reports not feeling well. On admission chest xray there is evidence of rib fractures on the right side. We will repeat xray of the ribs to further evaluate. Patient will need to be placed back on insulin gtt due to bicarb of 7 and increasing blood glucose. 10/29/2023 Patient on medical floor. Was not placed on insulin gtt yesterday. Continues to not feel well. Was acetone positive, sugars today back up to the 300s. This AM anion gap is now 15, CO2 11. Rib xray done today confirms right lateral rib fracture and small to moderate right pleural effusion. proBNP 438. Patient receiving albuterol and spiriva and fluticasone states the inhalers are helping. Transitioned to oral prednisone. 10/30/2023 Patient upgraded to 3 south continues on insulin gtt. Anion gap improving to 14 will monitor labs closely. Continues on oral prednisone. Reports the rib pain has improved today. On room air. 10/31/2023 Patient remains on insulin gtt anion gap has not improved much staying in the 14 to 15 range we will attempt to transition the patient so she can eat. She does have focal tenderness right upper abdomen states her abdomen hurts and feels better after BM. Labs unavailable from today. REVIEW OF SYSTEMS: CONSTITUTIONAL: No fever, no malaise, no fatigue. HEENT: No recent visual problems or hearing problems. Denied any sore throat. CARDIOVASCULAR: No orthopnea, PND, no palpitations, no syncope. PULMONARY: no hemoptysis. Reports congestion GASTROINTESTINAL: No diarrhea, no nausea, no vomiting, Reports RUQ abdominal pain. NEUROLOGICAL: No headaches, no weakness, no numbness. PHYSICAL EXAMINATION: GENERAL: The patient is alert and oriented x3, not in any acute distress. Well developed, well nourished. HEENT: Pupils are round and equally reacting to light. EOMI. No scleral icterus. No conjunctival pallor. Normocephalic, atraumatic. No pharyngeal erythema. No thyromegaly. CARDIOVASCULAR: S1 and S2 present. No murmurs, rubs, or gallops. PULMONARY: Expiratory wheezing on exam Coarse scattered ronchi ABDOMEN: Soft, RUQ tenderness, nondistended, normoactive bowel sounds. No pa lpable organomegaly. MUSCULOSKELETAL: No joint swelling or deformity. EXTREMITIES: No cyanosis, clubbing, or pedal edema. NEUROLOGICAL: Gross neurological examination did not reveal any focal deficits. SKIN: No rashes. Assessment and plan -COPD with acute exacerbation secondary to COVID-19 pneumonia patient continues on oral steroids, inhalered steroids. Will begin to taper prednisone starting tomorrow. -Type 2 diabetes mellitus uncontrolled elevated blood sugars. Patient presents with DKA. Anion gap remains elevated will check lactic acid if elevated this would explain the metabolic acidosis, will attempt to transition the patient to levemir and give diet and repeat labs later this afternoon. -Anion gap metabolic acidosis secondary to diabetic ketoacidosis patient also has hyperchloremia will change fluids to half normal saline. -Hyponatremia -Steroid induced hyperglycemia -Pleuritic chest pain musculoskeletal in nature, D-Dimer elevated this could be due to the acute covid however we will wait for creatinine to improve before ordering a CTA of the chest. Patient does have a fracture rib #8 on the right side this is likely contributing to the musculoskeletal chest pain. Encouraged to take pain medication and continue with incentive spirometer 10 x an hour while awake. -Acute renal failure prerenal azotemia patient was started on IV fluids expecting creatinine has normalized. -Diabetic nephropathy chronic kidney disease stage II -History of lung cancer in remission with recent right lower lobectomy. -Hypothyroidism will be resumed on the levothyroxine -Hypertension started on amlodipine renal function improved will add low dose lisinopril for improved BP control. DVT prophylaxis: Subcutaneous heparin twice a day GI Porophylaxis: Protonix Full Code The impression and plan of care has been dictated by Mariza Rees, Nurse Practitioner as directed. Dr. Orin MD I have performed a history and physical examination and medical decision making of this patient, discussed the same with the dictator, and agree with the dictators assessment and plan as written, documented as a scribe. Based on total visit time, I have performed more than 50% of this visit. Objective - Vital Signs Vital signs: Vital Signs Temp 98.1 F 10/30/23 20:00 Pulse 99 10/31/23 07:36 Resp 18 10/31/23 07:36 BP 157/82 10/31/23 07:36 Pulse Ox 99 10/31/23 07:36 FiO2 Intake & Output 10/30/23 10/31/23 10/31/23 18:59 06:59 18:59 Intake Total 33.498 571.727 26.248 Balance 33.498 571.727 26.248 Intake: IV 10 10 Invasive Line 2 10 10 Intake, IV Titration 23.498 31.727 16.248 Amount Insulin Regular 100 unit 23.498 31.727 16.248 In Sodium Chloride 0.9% 100 ml @ 0.1 UNITS/KG/HR 7.101 mls/hr IV .[id number] [facility] Rx#:[id number] Oral 540 Other: Voiding Method Bedside Commode Bedside Commode # Voids 2 2 2 - Labs CBC & Chem 7: 10/29/23 14:15 10/31/23 04:35 Labs: Abnormal Lab Results - Last 24 Hours (Table) 10/30/23 10/30/23 10/30/23 Range/Units 09:56 11:04 12:00 Sodium 136 L (137-145) mmol/L Chloride 109 H (98-107) mmol/L Carbon Dioxide 15 L (22-30) mmol/L Glucose 148 H (74-99) mg/dL POC Glucose (mg/dL) 208 H 216 H (70-110) mg/dL Phosphorus 2.1 L (2.5-4.5) mg/dL 10/30/23 10/30/23 10/30/23 Range/Units 13:04 14:16 15:04 Sodium (137-145) mmol/L Chloride (98-107) mmol/L Carbon Dioxide (22-30) mmol/L Glucose (74-99) mg/dL POC Glucose (mg/dL) 236 H 307 H 277 H (70-110) mg/dL Phosphorus (2.5-4.5) mg/dL 10/30/23 10/30/23 10/30/23 Range/Units 16:07 17:09 18:17 Sodium (137-145) mmol/L Chloride (98-107) mmol/L Carbon Dioxide (22-30) mmol/L Glucose (74-99) mg/dL POC Glucose (mg/dL) 223 H 196 H 195 H (70-110) mg/dL Phosphorus (2.5-4.5) mg/dL 10/30/23 10/30/23 10/30/23 Range/Units 18:51 19:58 20:03 Sodium 134 L (137-145) mmol/L Chloride 109 H (98-107) mmol/L Carbon Dioxide 14 L (22-30) mmol/L Glucose 202 H (74-99) mg/dL POC Glucose (mg/dL) 219 H 168 H (70-110) mg/dL Phosphorus (2.5-4.5) mg/dL 10/30/23 10/30/23 10/30/23 Range/Units 20:59 21:56 22:53 Sodium (137-145) mmol/L Chloride (98-107) mmol/L Carbon Dioxide (22-30) mmol/L Glucose (74-99) mg/dL POC Glucose (mg/dL) 194 H 195 H 211 H (70-110) mg/dL Phosphorus (2.5-4.5) mg/dL 10/30/23 10/31/23 10/31/23 Range/Units 23:55 00:27 00:53 Sodium 134 L (137-145) mmol/L Chloride 116 H (98-107) mmol/L Carbon Dioxide 15 L (22-30) mmol/L Glucose 213 H (74-99) mg/dL POC Glucose (mg/dL) 193 H 197 H (70-110) mg/dL Phosphorus (2.5-4.5) mg/dL 10/31/23 10/31/23 10/31/23 Range/Units 01:56 03:13 04:00 Sodium (137-145) mmol/L Chloride (98-107) mmol/L Carbon Dioxide (22-30) mmol/L Glucose (74-99) mg/dL POC Glucose (mg/dL) 203 H 244 H 220 H (70-110) mg/dL Phosphorus (2.5-4.5) mg/dL 10/31/23 10/31/23 10/31/23 Range/Units 04:35 04:57 05:58 Sodium 134 L (137-145) mmol/L Chloride 110 H (98-107) mmol/L Carbon Dioxide 14 L (22-30) mmol/L Glucose 255 H (74-99) mg/dL POC Glucose (mg/dL) 220 H 232 H (70-110) mg/dL Phosphorus (2.5-4.5) mg/dL 10/31/23 10/31/23 10/31/23 Range/Units 07:15 08:16 09:25 Sodium (137-145) mmol/L Chloride (98-107) mmol/L Carbon Dioxide (22-30) mmol/L Glucose (74-99) mg/dL POC Glucose (mg/dL) 292 H 291 H 227 H (70-110) mg/dL Phosphorus (2.5-4.5) mg/dL 10/31/23 Range/Units 10:12 Sodium (137-145) mmol/L Chloride (98-107) mmol/L Carbon Dioxide (22-30) mmol/L Glucose (74-99) mg/dL POC Glucose (mg/dL) 158 H (70-110) mg/dL Phosphorus (2.5-4.5) mg/dL Assessment and Plan Time with Patient: Less than 30
[2023-10-31 11:23] LABS: Glucose,Whole Blood 122 mg/dL (70-110)
[2023-10-31] MEDS: INSULIN DETEMIR (LEVEMIR) 100 UNIT/ML SYR SQ SCH (11:23)
[2023-10-31 12:13] LABS: Glucose,Whole Blood 91 mg/dL (70-110)
[2023-10-31 13:29] LABS: Glucose,Whole Blood 87 mg/dL (70-110)
--- NOTE | 2023-10-31 14:02 | US ---
EXAMINATION TYPE: US gallbladder DATE OF EXAM: 10/31/2023 COMPARISON: CT 2022, US 2019 CLINICAL INDICATION: Female, 58 years old with history of RUQ pain; Pain RUQ. TECHNIQUE: Multiple sonographic images of the right upper quadrant are obtained. FINDINGS: EXAM MEASUREMENTS: Liver Length: 15.1 cm Gallbladder Wall: 0.26 cm CBD: 0.34 cm Right Kidney: 9.9 x 5.3 x 4.8 cm HEALTH INFORMATION INTERNSHIP NOTES: Exam is limited due to gas. Pancreas: Slightly limited. Tail was not well seen. Duct within pancreatic body measures 2 mm. Liver: Appears coarse in echotexture. Gallbladder: Limited visibility of neck- possible internal echoes within neck versus artifact. Fold seen. Evidence for sonographic Holman's sign: No CBD: Portions seen appear wnl Right Kidney: No hydronephrosis or masses seen *Probable right pleural effusion seen within RUQ imaging. IMPRESSION: 1. Biliary sludge without evidence of cholecystitis. 2. Partially visualized right pleural effusion.
[2023-10-31] MEDS: SODIUM CHLORIDE 0.45% 1,000 ML IV SCH (15:05)
--- NOTE | 2023-10-31 16:37 | CT ---
EXAMINATION TYPE: CT chest angio for PE CT DLP: 308.8 mGycm, Automated exposure control for dose reduction was used. DATE OF EXAM: 10/31/2023 2:35 PM COMPARISON: CT chest 08/12/2023. CLINICAL INDICATION:Female, 58 years old with history of elevated D-dimer; SOB, covid TECHNIQUE/CONTRAST: CTA scan of the thorax is performed with IV Contrast, patient injected with 100 mL of Isovue 370, MIP images are created and reviewed these are created on a separate workstation.. FINDINGS: Pulmonary Artery: There are filling defects within the right lower lung arterial subsegmental branche s. The main pulmonary artery is of normal caliber. Lungs/Pleura: Trace right pleural effusion is identified. Atelectasis is noted within the right lower lung. The previously visualized spiculated lung mass in the right lower lung is not apparent on the current exam. Airway: Large airways are patent. Heart: Heart is within normal limits for size. Coronary artery calcifications are identified. No evid ence of heart strain. Vasculature: No evidence of aortic aneurysm. Mediastinum: No gross evidence of adenopathy. Musculoskeletal: Moderate degenerative disc disease changes are present throughout the thoracolumbar spine. Soft Tissues: Unremarkable. Lower neck: No significant findings. Upper Abdomen: No significant findings. IMPRESSION: 1. Right-sided subsegmental pulmonary emboli without evidence of heart strain. 2. Trace right pleural effusion. 3. Previously described right lower lung mass is not visualized on the current study. The findings of the exam were sent to the ordering provider via secure [employer] serve message on 2022 at 1634.
[2023-10-31 17:02] LABS: Glucose,Whole Blood 121 mg/dL (70-110)
[2023-10-31 17:34] LABS: African American GFR (CKD) 80 (>60 ml/min/1.73 sqM); Amylase 181 U/L (30-110); Anion Gap 13 mmol/L; Blood Urea Nitrogen 11 mg/dL (7-17); Calcium 9.6 mg/dL (8.4-10.2); Carbon Dioxide 11 mmol/L (22-30); Chloride 111 mmol/L (98-107); Glucose 103 mg/dL (74-99); Non-African American GFR(CKD) 69 (>60 ml/min/1.73 sqM); Sodium 135 mmol/L (137-145)
[2023-10-31] MEDS ORDERED: HEPARIN SODIUM 1,000 UN/ML (10ML VL) IV ONE (18:00)
[2023-10-31] MEDS ORDERED: HEPARIN SODIUM 1,000 UN/ML (10ML VL) IV PRN (18:00)
[2023-10-31] MEDS: HEPARIN SOD,PORK IN 0.45% NACL 25,000 UNIT in 0.45% NACL 1 250ML.BAG IV SCH (18:12)
[2023-10-31 19:06] LABS: Glucose,Whole Blood 134 mg/dL (70-110)
[2023-10-31 20:10] LABS: Glucose,Whole Blood 174 mg/dL (70-110)
[2023-10-31] MEDS: FAMOTIDINE 20 MG TAB PO SCH (20:20)
[2023-10-31 20:26] LABS: INR 1.1 (<1.2); Prothrombin Time 12.2 sec (10.0-12.5)
[2023-10-31 20:36] LABS: Partial Thromboplastin Time 133.9 sec (22.0-30.0)
[2023-10-31] MEDS: ONDANSETRON 4 MG/2 ML VIAL IVP PRN (20:52)
[2023-11-01] MEDS: HYDROcodone/APAP 7.5-325MG 1 EACH TAB PO PRN ×3 (02:53→17:04)
[2023-11-01] MEDS: MORPHINE SULFATE 4 MG/ML SYRINGE IV PRN ×3 (02:56→20:48)
[2023-11-01] MEDS: ONDANSETRON 4 MG/2 ML VIAL IVP PRN ×2 (02:56→20:49)
[2023-11-01] MEDS: SODIUM CHLORIDE 0.45% 1,000 ML IV SCH ×3 (04:27→18:19)
[2023-11-01] MEDS: DEXTROSE 5%-0.9% NACL 1,000 ML IV SCH ×3 (04:27→21:59)
[2023-11-01 06:18] LABS: Glucose,Whole Blood 328 mg/dL (70-110)
[2023-11-01] MEDS: INSULIN DETEMIR (LEVEMIR) 100 UNIT/ML SYR SQ SCH (06:31)
[2023-11-01] MEDS: INSULIN ASPART (NovoLOG) 100 UNIT/ML VIAL SQ SCH ×4 (06:32→20:43)
[2023-11-01] MEDS: PANTOPRAZOLE 40 MG TABLET PO SCH (06:33)
[2023-11-01] MEDS: LEVOTHYROXINE 25 MCG TAB PO SCH (06:33)
[2023-11-01] MEDS: LEVOTHYROXINE 125 MCG TAB PO SCH (06:33)
[2023-11-01] MEDS: ALBUTEROL HFA INHALER INHALATION SCH ×4 (08:41→20:27)
[2023-11-01] MEDS: FLUTICASONE 110 MCG INHALER INHALATION SCH ×2 (08:43→20:27)
[2023-11-01] MEDS: TIOTROPIUM 2.5 MCG INHALER INHALATION SCH (08:44)
[2023-11-01] MEDS: GABAPENTIN 400 MG CAP PO SCH ×3 (09:19→20:43)
[2023-11-01] MEDS: lisinopriL 5 MG TAB PO SCH (09:19)
[2023-11-01] MEDS: predniSONE 20 MG TAB PO SCH (09:20)
[2023-11-01] MEDS: MONTELUKAST 10 MG TAB PO SCH (09:20)
[2023-11-01] MEDS: busPIRone HCl 5 MG TAB PO SCH ×2 (09:20→20:42)
[2023-11-01] MEDS: amLODIPine 5 MG TAB PO SCH (09:20)
[2023-11-01] MEDS: guaiFENesin 600 MG TABLET.ER PO SCH ×2 (09:20→20:42)
[2023-11-01] MEDS: BRIMONIDINE TARTRATE 0.2% DROPS 5 ML BTL RIGHT EYE SCH ×2 (09:22→20:42)
[2023-11-01] MEDS: KETOROLAC 0.5% OPHTH DROPS 5 ML BTL RIGHT EYE SCH ×4 (09:22→20:43)
[2023-11-01 11:22] LABS: Glucose,Whole Blood 158 mg/dL (70-110)
--- NOTE | 2023-11-01 12:01 | CA ---
Transthoracic Echo Report Name: Sumaya Abbasi Age: 58 Gender: F : 1965 Exam Date: 11/01/2023 08:40 Exam Location: [place] [facility] Ht (in): 60 Wt (lb): 155 Ordering Physician: Mariza Rees Attending/Referring Phys: Cabrera GENTILE Information Strategist Denisse Maciel, PEDRO Procedure CPT: Indications: Pulmonary Embolism Cardiac Hx: Technical Quality: Good Contrast 1: Total Dose (mL): Contrast 2: Total Dose (mL): MEASUREMENTS (Male / Female) Normal Values 2D ECHO LV Diastolic Diameter PLAX 3.6 cm 4.2 - 5.9 / 3.9 - 5.3 cm LV Systolic Diameter PLAX 2.5 cm IVS Diastolic Thickness 1.3 cm 0.6 - 1.0 / 0.6 - 0.9 cm LVPW Diastolic Thickness 1.3 cm 0.6 - 1.0 / 0.6 - 0.9 cm LV Relative Wall Thickness 0.7 RV Internal Dim ED PLAX 2.3 cm LA Systolic Diameter LX 3.7 cm 3.0 - 4.0 / 2.7 - 3.8 cm LV Diastolic Volume MOD BP 60.7 cm??? 67 - 155 / 56 - 104 cm??? LV Systolic Volume MOD BP 25.7 cm??? 22 - 58 / 19 - 49 cm??? LV Ejection Fraction MOD BP 57.7 % >= 55 % LV Cardiac Index MOD BP 1498.9 cm???/min???m??? LV Diastolic Volume MOD 4C 70.9 cm??? LV Systolic Volume MOD 4C 31.9 cm??? LV Ejection Fraction MOD 4C 55.0 % LV Cardiac Index MOD 4C 1668.7 cm???/min???m??? LV Diastolic Length 4C 7.4 cm LV Systolic Length 4C 6.6 cm LV Diastolic Volume MOD 2C 54.5 cm??? LV Systolic Volume MOD 2C 12.6 cm??? LV Ejection Fraction MOD 2C 76.8 % LV Cardiac Index MOD 2C 1792.0 cm???/min???m??? LV Diastolic Length 2C 7.3 cm LV Systolic Length 2C 4.0 cm LA Volume 47.7 cm??? 18 - 58 / 22 - 52 cm??? LA Volume Index 27.2 cm???/m??? 16 - 28 cm???/m??? M-MODE Aortic Root Diameter MM 2.9 cm MV E Point Septal Separation 1.4 cm AV Cusp Separation MM 1.9 cm DOPPLER AV Peak Velocity 157.3 cm/s AV Peak Gradient 9.9 mmHg MV Area PHT 2.3 cm??? Mitral E Point Velocity 98.4 cm/s Mitral A Point Velocity 129.9 cm/s Mitral E to A Ratio 0.8 MV Deceleration Time 325.4 ms MV E' Velocity 7.5 cm/s Mitral E to MV E' Ratio 13.1 FINDINGS Left Ventricle Left ventricular ejection fraction is estimated at 55-60 %. Small left ventricular cavity. Mildly increased septal wall thickness. Mildly increased posterior wall thickness. Right Ventricle Normal right ventricular size. Unable to estimate the right ventricular systolic pressure. Right Atrium Normal right atrial size. Left Atrium Normal left atrial size. Mitral Valve Structurally normal mitral valve. Mitral annular calcification. Aortic Valve Trileaflet aortic valve. No aortic valve stenosis or regurgitation. Tricuspid Valve Structurally normal tricuspid valve. No tricuspid regurgitation. Pulmonic Valve Structurally normal pulmonic valve. No pulmonic regurgitation. Pericardium No pericardial effusion. Aorta Normal size aortic root and proximal ascending aorta. CONCLUSIONS Normal LV systolic function Previewed by: Dr. Gustavo Harris MD (Electronically Signed) Final Date: 01 November 2023 12:00
[2023-11-01 12:22] LABS: African American GFR (CKD) 81 (>60 ml/min/1.73 sqM); Anion Gap 13 mmol/L; Blood Urea Nitrogen 15 mg/dL (7-17); Calcium 9.1 mg/dL (8.4-10.2); Carbon Dioxide 14 mmol/L (22-30); Chloride 109 mmol/L (98-107); Glucose 166 mg/dL (74-99); Non-African American GFR(CKD) 71 (>60 ml/min/1.73 sqM); Sodium 136 mmol/L (137-145)
[2023-11-01 16:59] LABS: Glucose,Whole Blood 278 mg/dL (70-110)
[2023-11-01] MEDS: HEPARIN SOD,PORK IN 0.45% NACL 25,000 UNIT in 0.45% NACL 1 250ML.BAG IV SCH (18:39)
--- NOTE | 2023-11-01 19:41 | PN ---
PROGRESS NOTE DATE OF SERVICE: 11/01/2023 SUBJECTIVE: This is a 58-year-old woman, who was admitted with COPD and COVID-19 pneumonia, is being closely monitored at this time. The patient also had a chest CTA done yesterday, which showed right-sided subsegmental pulmonary emboli without evidence of any heart strain. Trace right pleural effusion and right lower lung mass as well. Reviewed the CTA personally. The patient is being closely monitored at this time. Multiple consultants are following the patient closely. PAST MEDICAL HISTORY: Reviewed. REVIEW OF SYSTEMS: Fourteen-point review is negative except as mentioned earlier. CURRENT MEDICATIONS: Reviewed include Ventolin. Doses and rest of the medications are noted. PHYSICAL EXAMINATION: VITAL SIGNS: Pulse is 87, blood pressure 122/65, respirations 16. CHEST: Few scattered rhonchi and crackles. ABDOMEN: Soft. NERVOUS SYSTEM: Nonfocal. LABORATORY DATA: Sodium 136, CO2 is 14. Rest of the labs are noted. ASSESSMENT: 1. Chronic obstructive pulmonary disease acute exacerbation. 2. Acute COVID-19 infection with pneumonia. 3. Right pulmonary embolism. 4. Diabetes mellitus, type 2. 5. Hyponatremia. 6. Pleuritic chest pain. 7. Diabetic nephropathy. 8. Hypertension. 9. Hypothyroidism. 10.Multiple complex medical issues. RECOMMENDATIONS: Recommend to continue current medical management. Continue symptomatic treatment. Otherwise, continue with bronchodilators. I recommend anticoagulation and Pulmonary consultation. Continue the rest of the medications. Prognosis is guarded. Further recommendations to follow. See orders for details. MMODL / IJN: [id number] /
[2023-11-01 20:05] VITALS: TEMP 98.2
[2023-11-01 20:10] LABS: Glucose,Whole Blood 287 mg/dL (70-110)
[2023-11-01] MEDS: cloNIDine HCL 0.1 MG TAB PO SCH (20:42)
[2023-11-01] MEDS: FAMOTIDINE 20 MG TAB PO SCH (20:42)
[2023-11-01] MEDS: MELATONIN 5 MG TABLET PO PRN (20:48)
[2023-11-01] MEDS: BENZOCAINE/MENTHOL LOZENG 1 EACH LOZENGE MUCOUS MEM PRN (20:48)
[2023-11-01] MEDS: BENZONATATE 100 MG CAP PO PRN (20:48)
[2023-11-02] MEDS: HYDROcodone/APAP 7.5-325MG 1 EACH TAB PO PRN ×2 (02:14→09:41)
[2023-11-02] MEDS: HEPARIN SOD,PORK IN 0.45% NACL 25,000 UNIT in 0.45% NACL 1 250ML.BAG IV SCH (02:15)
[2023-11-02 06:10] LABS: Glucose,Whole Blood 384 mg/dL (70-110)
[2023-11-02] MEDS: INSULIN ASPART (NovoLOG) 100 UNIT/ML VIAL SQ SCH ×2 (06:26→12:38)
[2023-11-02] MEDS: INSULIN DETEMIR (LEVEMIR) 100 UNIT/ML SYR SQ SCH (06:26)
[2023-11-02] MEDS: LEVOTHYROXINE 125 MCG TAB PO SCH (06:26)
[2023-11-02] MEDS: LEVOTHYROXINE 25 MCG TAB PO SCH (06:26)
[2023-11-02] MEDS: MORPHINE SULFATE 4 MG/ML SYRINGE IV PRN (06:27)
[2023-11-02] MEDS: PANTOPRAZOLE 40 MG TABLET PO SCH (06:27)
[2023-11-02] MEDS: BENZOCAINE/MENTHOL LOZENG 1 EACH LOZENGE MUCOUS MEM PRN (06:27)
[2023-11-02] MEDS: ONDANSETRON 4 MG/2 ML VIAL IVP PRN (06:27)
[2023-11-02] MEDS: SODIUM CHLORIDE 0.45% 1,000 ML IV SCH (06:35)
[2023-11-02 07:00] VITALS: PULSE 74
--- NOTE | 2023-11-02 07:28 | P.CNPUL ---
History of Present Illness Consult date: 11/02/23 Requesting physician: Sanjuana Salazar Reason for consult: pulmonary embolism Chief complaint: Shortness of breath History of present illness: I am seeing this patient in new consultation today 11/02/2023 after she was found to have a small subsegmental right-sided pulmonary emboli on chest CTA y esterday. She was actually admitted back on 10/26/23 for acute COVID-19 infection and DKA. Patient is a 58-year-old white female with past medical history significant for right lower lobe pulmonary adenocarcinoma status post right-sided VATS with right lower lobectomy on September. Patient also has medical history significant for COPD, diabetes mellitus, hypertension, hypothyroidism, multiple sclerosis, among other things. Patient presented to the emergency room back on 10/26/2023 with the chief complaint of shortness of breath. She was having a nonproductive cough, nausea and vomiting, and reduced appetite for the last 2 days. Denies any fevers. Denies any other infectious symptoms. Her roommate was having similar symptoms, and did test positive for COVID-19. Patient states that she stopped taking her insulin because she did not have an appetite. Her blood sugars were high. On arrival, she did test positive for COVID-19. She is also complaining of a right sided lateral chest pain. Worse with palpation and coughing. Chest x-ray on arrival did not demonstrate any acute infiltrates. There was a residual right sided pleural effusion. There was a right-sided eighth rib fracture. No Pneumothorax. She did have an elevated d-dimer. Follow-up chest CTA done yesterday showed a right-sided subsegmental pulmonary emboli without evidence of right-sided heart strain. There is a trace right pleural effusion. No focal consolidations or evidence of pneumonia. Currently, the patient is sitting up in bed, on room air, in no acute distress. She is started on high intensity heparin protocol. Most recent APTT therapeutic. She denies any previous history of blood clots. CBC from 4 days ago was unremarkable. She still is a component of anion gap metabolic acidosis. She was treated on the DKA protocol, but has been transitioned to subcu sliding scale insulin and Levemir. Lactic acid level non-elevated. BMP from yesterday shows sodium 136, potassium 4, chloride 109, serum bicarbonate 14, anion gap 13, BUN 15, creatinine 0.9, glucose 166. She is on room air. She is hemodynamically stable. Review of Systems REVIEW OF SYSTEMS: CONSTITUTIONAL: Denies any recent significant weight loss or weight gain. Denies fevers. EYES: Denies change in vision. EARS, NOSE, MOUTH, THROAT: Denies headaches, denies sore throat. CARDIOVASCULAR: Denies palpitations or syncopal episodes. Denies lower extremity edema. RESPIRATORY: See HPI. GASTROINTESTINAL: Denies abdominal pain, constipation, diarrhea. Admits reduced appetite and some nausea and vomiting on admission which have subsided. GENITOURINARY: Denies hematuria, denies infections. MUSKULOSKELETAL: Admits right lateral chest especially with palpation of the chest wall and coughing. INTEGUMENTARY: Denies rash, denies eczema. NEUROLOGICAL: Denies recent memory loss, no recent seizure activity. PSYCHIATRIC: Denies anxiety, denies depression. HEMATOLOGIC/LYMPHATIC: Denies anemia, denies enlarged lymph node Past Medical History Past Medical History: COPD, Diabetes Mellitus, Eye Disorder, Hypertension, Musculoskeletal Disorder, Osteoarthritis (OA), Thyroid Disorder Additional Past Medical History / Comment(s): COPD, diabetes, GERD, osteoarthritis, seizure disorder secondary to hypoglycemia , hypothyroid, multiple sclerosis, diabetic peripheral neuropathy, optic neuritis, decreased vision in the eyes,; this problem, restless leg syndrome, colon polyps, anxiety depression. OA, efren in Rt ankle. Hx prob w/ cervical discs. Vaccinated for COVID 19 History of Any Multi-Drug Resistant Organisms: None Reported Past Surgical History: Adenoidectomy, Appendectomy, Tonsillectomy, Tubal Ligation Additional Past Surgical History / Comment(s): Laparoscopies. Pain procedures., cataract, neck fusion. right lower lobectomy. catarcat sx 4 days ago. cervical fusion. ankle fusion Past Anesthesia/Blood Transfusion Reactions: Motion Sickness Additional Past Anesthesia/Blood Transfusion Reaction / Comment(s): no blood transfusions Past Psychological History: Anxiety, Depression Additional Psychological History / Comment(s): Pt resides with a roomate. She uses a cane to ambulate. She cannot drive, she gets to appointments by her insurance company. Smoking Status: Former smoker Past Alcohol Use History: None Reported Past Drug Use History: None Reported - Past Family History Mother Family Medical History: Myocardial Infarction ([place]) Additional Family Medical History / Comment(s): Mother at age 48 from coronary artery disease. Patient does not have any brothers and sisters. She has one adult son with no major medical problems. Medications and Allergies Home Medications Medication Instructions Recorded Confirmed Type Levothyroxine Sodium [Synthroid] 125 mcg PO DAILY 03/10/22 10/26/23 History Montelukast [Singulair] 10 mg PO DAILY 07/28/22 10/26/23 History Levothyroxine Sodium [Synthroid] 25 mcg PO DAILY 03/17/23 10/26/23 History Famotidine [Pepcid] 20 mg PO HS #30 tab 07/01/23 10/26/23 Rx Albuterol Sulfate [Albuterol 1 puff PO RT-Q4H PRN 09/27/23 10/26/23 History Sulfate Hfa] busPIRone HCL 5 mg PO BID 09/27/23 10/26/23 History HYDROcodone/APAP 5-325MG [[place] 1 tab PO Q6HR PRN #12 tab 10/08/23 10/26/23 Rx 5-325] Brimonidine Tartrate [Alphagan P 1 drops RIGHT EYE BID 10/26/23 10/26/23 History 0.2% Ophth Soln] Gabapentin [Neurontin] 800 mg PO TID 10/26/23 10/26/23 History Ibuprofen [Motrin] 800 mg PO Q8H PRN 10/26/23 10/26/23 History Insulin Aspart Prot/Insuln Asp See Protocol SQ AC-TID 10/26/23 10/26/23 History [Novolog MIX 70-30 Flexpen] Insulin Glargine,Hum.rec.anlog 18 units SQ DAILY 10/26/23 10/26/23 History [Lantus Solostar Pen] Ketorolac 0.5% Ophth Soln [Acular 1 drops RIGHT EYE QID 10/26/23 10/26/23 History 0.5%] cloNIDine HCL [Catapres] 0.3 mg PO BID 10/26/23 10/26/23 History rOPINIRole HCL [Requip] 1 mg PO HS 10/26/23 10/26/23 History Allergies Allergy/AdvReac Type Severity Reaction Status Date / Time No Known Allergies Allergy Verified 10/26/23 19:12 Physical Exam Vitals: Vital Signs Temp Pulse Resp BP Pulse Ox 12/05/23 00:00 78 18 91/53 98 11/01/23 19:46 98.2 F 94 18 135/69 97 11/01/23 17:09 92 16 145/79 98 11/01/23 12:00 97.5 F L 87 16 122/64 100 11/01/23 09:13 98 F 74 16 156/78 99 11/01/23 08:44 96 11/01/23 04:00 70 18 139/69 99 Intake and Output 11/01/23 11/01/23 11/02/23 14:59 22:59 06:59 Intake Total 0 136.49 Balance 0 136.49 Intake: Intake, IV Titration 0 136.49 Amount Heparin Sod,Pork in 0.45% 0 136.49 NaCl 25,000 unit In 0.45 % NaCl 1 250ml.bag @ 18 UNITS/KG/HR 12.655 mls/hr IV .[id number] [facility] Rx#: [id number] Other: Voiding Method Bedside Commode Bedside Commode Bedside Commode # Voids 1 1 GENERAL EXAM: Alert, 58-year-old white female appearing stated age, comfortable in no apparent distress. HEAD: Normocephalic and atraumatic EYES: Normal reaction of pupils, equal size. NOSE: Clear with pink turbinates. THROAT: No erythema or exudates. NECK: No masses, no JVD. CHEST: No chest wall deformity. No crepitus or subcutaneous emphysema. LUNGS: Equal air entry with faint expiratory wheezes and rhonchi throughout. On room air. No conversational dyspnea or accessory muscle use.. CVS: S1 and S2 normal with no audible murmur, regular rhythm. No extra heart sounds ABDOMEN: No hepatosplenomegaly, active bowel sounds, no guarding or rigidity. SPINE: No scoliosis or deformity SKIN: No rashes CENTRAL NERVOUS SYSTEM: No focal deficits, tone is normal in all 4 extremities. EXTREMITIES: There is no peripheral edema, clubbing, or cyanosis. Peripheral pulses are intact. Results - Laboratory Findings CBC and BMP: 10/29/23 14:15 11/01/23 11:05 PT/INR, D-dimer PT 12.2 sec (10.0-12.5) 10/31/23 19:34 INR 1.1 (<1.2) 10/31/23 19:34 D-Dimer 1.36 mg/L FEU (<0.60) H 10/27/23 13:07 Abnormal lab findings: Abnormal Labs 10/26/23 10/26/23 10/26/23 15:37 15:37 15:37 WBC RBC Hgb MCHC Neutrophils # 8.0 H Lymphocytes # 0.9 L Eosinophils # APTT D-Dimer VBG pH VBG pCO2 VBG HCO3 Sodium 126 L Potassium 5.4 H Chloride 92 L Carbon Dioxide 10 L Anion Gap BUN 29 H Creatinine 1.65 H Est GFR (CKD-EPI) Glucose 610 H* POC Glucose (mg/dL) Hemoglobin A1c Phosphorus Magnesium AST 41 H Alkaline Phosphatase 180 H Albumin Amylase SARS-CoV-2 (PCR) Detected A 10/26/23 10/26/23 10/26/23 18:15 19:20 20:50 WBC RBC Hgb MCHC Neutrophils # Lymphocytes # Eosinophils # APTT D-Dimer VBG pH 7.19 L* VBG pCO2 26 L VBG HCO3 10 L Sodium 131 L Potassium Chloride Carbon Dioxide 8 L* Anion Gap BUN 29 H Creatinine 1.49 H Est GFR (CKD-EPI) Glucose 500 H POC Glucose (mg/dL) 559 H Hemoglobin A1c Phosphorus 5.2 H Magnesium AST Alkaline Phosphatase Albumin Amylase SARS-CoV-2 (PCR) 10/26/23 10/26/23 10/26/23 20:57 22:06 23:14 WBC RBC Hgb MCHC Neutrophils # Lymphocytes # Eosinophils # APTT D-Dimer VBG pH VBG pCO2 VBG HCO3 Sodium Potassium Chloride Carbon Dioxide Anion Gap BUN Creatinine Est GFR (CKD-EPI) Glucose POC Glucose (mg/dL) 480 H 362 H 268 H Hemoglobin A1c Phosphorus Magnesium AST Alkaline Phosphatase Albumin Amylase SARS-CoV-2 (PCR) 10/26/23 10/27/23 10/27/23 23:56 00:12 02:53 WBC RBC Hgb MCHC Neutrophils # Lymphocytes # Eosinophils # APTT D-Dimer VBG pH VBG pCO2 VBG HCO3 Sodium 134 L Potassium Chloride Carbon Dioxide 15 L Anion Gap BUN 29 H Creatinine 1.30 H Est GFR (CKD-EPI) Glucose 206 H POC Glucose (mg/dL) 206 H 61 L Hemoglobin A1c Phosphorus Magnesium AST Alkaline Phosphatase Albumin Amylase SARS-CoV-2 (PCR) 10/27/23 10/27/23 10/27/23 03:25 05:43 06:42 WBC RBC Hgb MCHC Neutrophils # Lymphocytes # Eosinophils # APTT D-Dimer VBG pH VBG pCO2 VBG HCO3 Sodium Potassium Chloride Carbon Dioxide Anion Gap BUN Creatinine Est GFR (CKD-EPI) Glucose POC Glucose (mg/dL) 69 L 135 H 122 H Hemoglobin A1c Phosphorus Magnesium AST Alkaline Phosphatase Albumin Amylase SARS-CoV-2 (PCR) 10/27/23 10/27/23 10/27/23 07:30 07:30 07:30 WBC RBC 3.72 L Hgb MCHC Neutrophils # Lymphocytes # Eosinophils # APTT D-Dimer VBG pH VBG pCO2 VBG HCO3 Sodium 135 L Potassium Chloride 109 H Carbon Dioxide 16 L Anion Gap BUN 26 H Creatinine 1.24 H Est GFR (CKD-EPI) Glucose 101 H POC Glucose (mg/dL) Hemoglobin A1c 8.1 H Phosphorus Magnesium AST Alkaline Phosphatase Albumin 3.2 L Amylase SARS-CoV-2 (PCR) 10/27/23 10/27/23 10/27/23 09:22 12:49 13:07 WBC RBC Hgb MCHC Neutrophils # Lymphocytes # Eosinophils # APTT D-Dimer 1.36 H VBG pH VBG pCO2 VBG HCO3 Sodium Potassium Chloride Carbon Dioxide Anion Gap BUN Creatinine Est GFR (CKD-EPI) Glucose POC Glucose (mg/dL) 159 H 251 H Hemoglobin A1c Phosphorus Magnesium AST Alkaline Phosphatase Albumin Amylase SARS-CoV-2 (PCR) 10/27/23 10/27/23 10/28/23 17:04 20:37 06:09 WBC RBC Hgb MCHC Neutrophils # Lymphocytes # Eosinophils # APTT D-Dimer VBG pH VBG pCO2 VBG HCO3 Sodium Potassium Chloride Carbon Dioxide Anion Gap BUN Creatinine Est GFR (CKD-EPI) Glucose POC Glucose (mg/dL) 156 H 210 H 375 H Hemoglobin A1c Phosphorus Magnesium AST Alkaline Phosphatase Albumin Amylase SARS-CoV-2 (PCR) 10/28/23 10/28/23 10/28/23 06:31 11:24 12:04 WBC RBC Hgb MCHC Neutrophils # Lymphocytes # Eosinophils # APTT D-Dimer VBG pH VBG pCO2 VBG HCO3 Sodium 130 L 134 L Potassium Chloride 109 H Carbon Dioxide 7 L* 13 L Anion Gap BUN 18 H 18 H Creatinine 1.10 H Est GFR (CKD-EPI) Glucose 395 H 134 H POC Glucose (mg/dL) 150 H Hemoglobin A1c Phosphorus Magnesium AST Alkaline Phosphatase Albumin Amylase SARS-CoV-2 (PCR) 10/28/23 10/28/23 10/28/23 12:04 16:58 17:06 WBC RBC Hgb MCHC Neutrophils # Lymphocytes # Eosinophils # APTT D-Dimer VBG pH 7.25 L VBG pCO2 34 L VBG HCO3 15 L Sodium 134 L Potassium Chloride 108 H Carbon Dioxide 11 L Anion Gap BUN 18 H Creatinine 1.09 H Est GFR (CKD-EPI) Glucose 147 H POC Glucose (mg/dL) 139 H Hemoglobin A1c Phosphorus Magnesium AST Alkaline Phosphatase Albumin Amylase SARS-CoV-2 (PCR) 10/28/23 10/29/23 10/29/23 20:26 06:11 07:10 WBC RBC Hgb MCHC Neutrophils # Lymphocytes # Eosinophils # APTT D-Dimer VBG pH VBG pCO2 VBG HCO3 Sodium Potassium Chloride Carbon Dioxide Anion Gap BUN Creatinine Est GFR (CKD-EPI) Glucose POC Glucose (mg/dL) 177 H 250 H Hemoglobin A1c 8.6 H Phosphorus Magnesium AST Alkaline Phosphatase Albumin Amylase SARS-CoV-2 (PCR) 10/29/23 10/29/23 10/29/23 07:10 07:10 11:34 WBC 4.42 L RBC 3.93 L Hgb 11.9 L MCHC 31.7 L Neutrophils # Lymphocytes # Eosinophils # 0 L APTT D-Dimer VBG pH VBG pCO2 VBG HCO3 Sodium 134 L Potassium Chloride Carbon Dioxide 13.7 L Anion Gap 15.30 H BUN Creatinine Est GFR (CKD-EPI) 58 L Glucose 256 H POC Glucose (mg/dL) 347 H Hemoglobin A1c Phosphorus Magnesium AST Alkaline Phosphatase Albumin Amylase SARS-CoV-2 (PCR) 10/29/23 10/29/23 10/29/23 14:08 14:15 14:15 WBC RBC Hgb MCHC Neutrophils # Lymphocytes # 0.6 L Eosinophils # APTT D-Dimer VBG pH VBG pCO2 VBG HCO3 Sodium 135 L Potassium Chloride Carbon Dioxide 14 L Anion Gap BUN Creatinine Est GFR (CKD-EPI) Glucose 137 H POC Glucose (mg/dL) 154 H Hemoglobin A1c Phosphorus Magnesium AST Alkaline Phosphatase Albumin Amylase SARS-CoV-2 (PCR) 10/29/23 10/29/23 10/29/23 14:59 15:40 15:40 WBC RBC Hgb MCHC Neutrophils # Lymphocytes # Eosinophils # APTT D-Dimer VBG pH VBG pCO2 VBG HCO3 Sodium 134 L Potassium Chloride Carbon Dioxide 14 L Anion Gap BUN Creatinine Est GFR (CKD-EPI) Glucose 117 H POC Glucose (mg/dL) 112 H Hemoglobin A1c Phosphorus 1.9 L Magnesium AST Alkaline Phosphatase Albumin Amylase SARS-CoV-2 (PCR) 10/29/23 10/29/23 10/29/23 16:04 16:58 18:10 WBC RBC Hgb MCHC Neutrophils # Lymphocytes # Eosinophils # APTT D-Dimer VBG pH VBG pCO2 VBG HCO3 Sodium Potassium Chloride Carbon Dioxide Anion Gap BUN Creatinine Est GFR (CKD-EPI) Glucose POC Glucose (mg/dL) 111 H 140 H 177 H Hemoglobin A1c Phosphorus Magnesium AST Alkaline Phosphatase Albumin Amylase SARS-CoV-2 (PCR) 10/29/23 10/29/23 10/29/23 19:06 19:30 19:30 WBC RBC Hgb MCHC Neutrophils # Lymphocytes # Eosinophils # APTT D-Dimer VBG pH VBG pCO2 VBG HCO3 Sodium 134 L Potassium Chloride Carbon Dioxide 14 L Anion Gap BUN Creatinine Est GFR (CKD-EPI) Glucose 211 H POC Glucose (mg/dL) 219 H Hemoglobin A1c Phosphorus 2.4 L Magnesium AST Alkaline Phosphatase Albumin Amylase SARS-CoV-2 (PCR) 10/29/23 10/29/23 10/29/23 20:00 22:03 22:51 WBC RBC Hgb MCHC Neutrophils # Lymphocytes # Eosinophils # APTT D-Dimer VBG pH VBG pCO2 VBG HCO3 Sodium Potassium Chloride Carbon Dioxide Anion Gap BUN Creatinine Est GFR (CKD-EPI) Glucose POC Glucose (mg/dL) 204 H 295 H 301 H Hemoglobin A1c Phosphorus Magnesium AST Alkaline Phosphatase Albumin Amylase SARS-CoV-2 (PCR) 10/29/23 10/30/23 10/30/23 23:55 01:09 01:56 WBC RBC Hgb MCHC Neutrophils # Lymphocytes # Eosinophils # APTT D-Dimer VBG pH VBG pCO2 VBG HCO3 Sodium Potassium Chloride Carbon Dioxide Anion Gap BUN Creatinine Est GFR (CKD-EPI) Glucose POC Glucose (mg/dL) 305 H 290 H 284 H Hemoglobin A1c Phosphorus Magnesium AST Alkaline Phosphatase Albumin Amylase SARS-CoV-2 (PCR) 10/30/23 10/30/23 10/30/23 02:59 04:01 04:55 WBC RBC Hgb MCHC Neutrophils # Lymphocytes # Eosinophils # APTT D-Dimer VBG pH VBG pCO2 VBG HCO3 Sodium Potassium Chloride Carbon Dioxide Anion Gap BUN Creatinine Est GFR (CKD-EPI) Glucose POC Glucose (mg/dL) 248 H 235 H 204 H Hemoglobin A1c Phosphorus Magnesium AST Alkaline Phosphatase Albumin Amylase SARS-CoV-2 (PCR) 10/30/23 10/30/23 10/30/23 05:58 06:18 07:09 WBC RBC Hgb MCHC Neutrophils # Lymphocytes # Eosinophils # APTT D-Dimer VBG pH VBG pCO2 VBG HCO3 Sodium 133 L Potassium Chloride Carbon Dioxide 15 L Anion Gap BUN Creatinine Est GFR (CKD-EPI) Glucose 171 H POC Glucose (mg/dL) 169 H 132 H Hemoglobin A1c Phosphorus Magnesium 1.5 L AST Alkaline Phosphatase Albumin Amylase SARS-CoV-2 (PCR) 10/30/23 10/30/23 10/30/23 09:56 10:01 11:04 WBC RBC Hgb MCHC Neutrophils # Lymphocytes # Eosinophils # APTT D-Dimer VBG pH VBG pCO2 VBG HCO3 Sodium 136 L Potassium Chloride 109 H Carbon Dioxide 15 L Anion Gap BUN Creatinine Est GFR (CKD-EPI) Glucose 148 H POC Glucose (mg/dL) 137 H 208 H Hemoglobin A1c Phosphorus 2.1 L Magnesium AST Alkaline Phosphatase Albumin Amylase SARS-CoV-2 (PCR) 10/30/23 10/30/23 10/30/23 12:00 13:04 14:16 WBC RBC Hgb MCHC Neutrophils # Lymphocytes # Eosinophils # APTT D-Dimer VBG pH VBG pCO2 VBG HCO3 Sodium Potassium Chloride Carbon Dioxide Anion Gap BUN Creatinine Est GFR (CKD-EPI) Glucose POC Glucose (mg/dL) 216 H 236 H 307 H Hemoglobin A1c Phosphorus Magnesium AST Alkaline Phosphatase Albumin Amylase SARS-CoV-2 (PCR) 10/30/23 10/30/23 10/30/23 15:04 16:07 17:09 WBC RBC Hgb MCHC Neutrophils # Lymphocytes # Eosinophils # APTT D-Dimer VBG pH VBG pCO2 VBG HCO3 Sodium Potassium Chloride Carbon Dioxide Anion Gap BUN Creatinine Est GFR (CKD-EPI) Glucose POC Glucose (mg/dL) 277 H 223 H 196 H Hemoglobin A1c Phosphorus Magnesium AST Alkaline Phosphatase Albumin Amylase SARS-CoV-2 (PCR) 10/30/23 10/30/23 10/30/23 18:17 18:51 19:58 WBC RBC Hgb MCHC Neutrophils # Lymphocytes # Eosinophils # APTT D-Dimer VBG pH VBG pCO2 VBG HCO3 Sodium Potassium Chloride Carbon Dioxide Anion Gap BUN Creatinine Est GFR (CKD-EPI) Glucose POC Glucose (mg/dL) 195 H 219 H 168 H Hemoglobin A1c Phosphorus Magnesium AST Alkaline Phosphatase Albumin Amylase SARS-CoV-2 (PCR) 10/30/23 10/30/23 10/30/23 20:03 20:59 21:56 WBC RBC Hgb MCHC Neutrophils # Lymphocytes # Eosinophils # APTT D-Dimer VBG pH VBG pCO2 VBG HCO3 Sodium 134 L Potassium Chloride 109 H Carbon Dioxide 14 L Anion Gap BUN Creatinine Est GFR (CKD-EPI) Glucose 202 H POC Glucose (mg/dL) 194 H 195 H Hemoglobin A1c Phosphorus Magnesium AST Alkaline Phosphatase Albumin Amylase SARS-CoV-2 (PCR) 10/30/23 10/30/23 10/30/23 22:53 23:55 23:56 WBC RBC Hgb MCHC Neutrophils # Lymphocytes # Eosinophils # APTT D-Dimer VBG pH VBG pCO2 VBG HCO3 Sodium 131 L Potassium Chloride Carbon Dioxide 14 L Anion Gap BUN Creatinine Est GFR (CKD-EPI) Glucose 322 H POC Glucose (mg/dL) 211 H 193 H Hemoglobin A1c Phosphorus Magnesium 1.5 L AST Alkaline Phosphatase Albumin Amylase SARS-CoV-2 (PCR) 10/31/23 10/31/23 10/31/23 00:27 00:53 01:56 WBC RBC Hgb MCHC Neutrophils # Lymphocytes # Eosinophils # APTT D-Dimer VBG pH VBG pCO2 VBG HCO3 Sodium 134 L Potassium Chloride 116 H Carbon Dioxide 15 L Anion Gap BUN Creatinine Est GFR (CKD-EPI) Glucose 213 H POC Glucose (mg/dL) 197 H 203 H Hemoglobin A1c Phosphorus Magnesium AST Alkaline Phosphatase Albumin Amylase SARS-CoV-2 (PCR) 10/31/23 10/31/23 10/31/23 03:13 04:00 04:35 WBC RBC Hgb MCHC Neutrophils # Lymphocytes # Eosinophils # APTT D-Dimer VBG pH VBG pCO2 VBG HCO3 Sodium 134 L Potassium Chloride 110 H Carbon Dioxide 14 L Anion Gap BUN Creatinine Est GFR (CKD-EPI) Glucose 255 H POC Glucose (mg/dL) 244 H 220 H Hemoglobin A1c Phosphorus Magnesium AST Alkaline Phosphatase Albumin Amylase SARS-CoV-2 (PCR) 10/31/23 10/31/23 10/31/23 04:57 05:58 07:15 WBC RBC Hgb MCHC Neutrophils # Lymphocytes # Eosinophils # APTT D-Dimer VBG pH VBG pCO2 VBG HCO3 Sodium Potassium Chloride Carbon Dioxide Anion Gap BUN Creatinine Est GFR (CKD-EPI) Glucose POC Glucose (mg/dL) 220 H 232 H 292 H Hemoglobin A1c Phosphorus Magnesium AST Alkaline Phosphatase Albumin Amylase SARS-CoV-2 (PCR) 10/31/23 10/31/23 10/31/23 08:16 09:25 10:12 WBC RBC Hgb MCHC Neutrophils # Lymphocytes # Eosinophils # APTT D-Dimer VBG pH VBG pCO2 VBG HCO3 Sodium Potassium Chloride Carbon Dioxide Anion Gap BUN Creatinine Est GFR (CKD-EPI) Glucose POC Glucose (mg/dL) 291 H 227 H 158 H Hemoglobin A1c Phosphorus Magnesium AST Alkaline Phosphatase Albumin Amylase SARS-CoV-2 (PCR) 10/31/23 10/31/23 10/31/23 11:21 15:47 16:51 WBC RBC Hgb MCHC Neutrophils # Lymphocytes # Eosinophils # APTT D-Dimer VBG pH VBG pCO2 VBG HCO3 Sodium 135 L Potassium Chloride 111 H Carbon Dioxide 11 L Anion Gap BUN Creatinine Est GFR (CKD-EPI) Glucose 103 H POC Glucose (mg/dL) 122 H 121 H Hemoglobin A1c Phosphorus Magnesium AST Alkaline Phosphatase Albumin Amylase 181 H SARS-CoV-2 (PCR) 10/31/23 10/31/23 10/31/23 18:55 19:34 20:09 WBC RBC Hgb MCHC Neutrophils # Lymphocytes # Eosinophils # APTT 133.9 H* D-Dimer VBG pH VBG pCO2 VBG HCO3 Sodium Potassium Chloride Carbon Dioxide Anion Gap BUN Creatinine Est GFR (CKD-EPI) Glucose POC Glucose (mg/dL) 134 H 174 H Hemoglobin A1c Phosphorus Magnesium AST Alkaline Phosphatase Albumin Amylase SARS-CoV-2 (PCR) 11/01/23 11/01/23 11/01/23 04:18 06:16 11:05 WBC RBC Hgb MCHC Neutrophils # Lymphocytes # Eosinophils # APTT 107.1 H* D-Dimer VBG pH VBG pCO2 VBG HCO3 Sodium 136 L Potassium Chloride 109 H Carbon Dioxide 14 L Anion Gap BUN Creatinine Est GFR (CKD-EPI) Glucose 166 H POC Glucose (mg/dL) 328 H Hemoglobin A1c Phosphorus Magnesium AST Alkaline Phosphatase Albumin Amylase SARS-CoV-2 (PCR) 11/01/23 11/01/23 11/01/23 11:05 11:20 16:57 WBC RBC Hgb MCHC Neutrophils # Lymphocytes # Eosinophils # APTT 53.9 H D-Dimer VBG pH VBG pCO2 VBG HCO3 Sodium Potassium Chloride Carbon Dioxide Anion Gap BUN Creatinine Est GFR (CKD-EPI) Glucose POC Glucose (mg/dL) 158 H 278 H Hemoglobin A1c Phosphorus Magnesium AST Alkaline Phosphatase Albumin Amylase SARS-CoV-2 (PCR) 11/01/23 20:09 WBC RBC Hgb MCHC Neutrophils # Lymphocytes # Eosinophils # APTT D-Dimer VBG pH VBG pCO2 VBG HCO3 Sodium Potassium Chloride Carbon Dioxide Anion Gap BUN Creatinine Est GFR (CKD-EPI) Glucose POC Glucose (mg/dL) 287 H Hemoglobin A1c Phosphorus Magnesium AST Alkaline Phosphatase Albumin Amylase SARS-CoV-2 (PCR) - Diagnostic Findings Chest x-ray: image reviewed CT scan - chest: image reviewed Assessment and Plan Assessment: Acute COVID-19 infection, without evidence of COVID-19 pneumonia. Acute COPD exacerbation, secondary to above Acute right subsegmental small pulmonary embolism, no evidence of right heart strain. No prior history of thromboembolic disease. Dyspnea, secondary to above. Chest CTA done yesterday shows a small right-sided subsegmental pulmonary emboli without evidence of right-sided heart strain. There is a trace right pleural effusion. No focal consolidations or evidence of pneumonia. Diabetic ketoacidosis Anion gap metabolic acidosis, secondary to above Acute kidney injury, resolved History of non-small cell lung carcinoma, status post right-sided video-assisted thorascopic surgery and right lower lobectomy on 09/29/23 Type 1 diabetes mellitus, complicated by diabetic neuropathy Benign essential hypertension Former tobacco smoker Plan: Patient's medications, labs, imaging reviewed. Patient does have a small right- sided subsegmental pulmonary embolism. This is her first occurence. She was started on the high intensity heparin protocol, and will likely be transitioned to a DOAC. No evidence of right-sided heart strain on chest CTA or echocardio gram. Patient did recently undergo thoracic surgery. She also was positive for COVID-19. No evidence of COVID-19 pneumonia. Currently on albuterol HFA, Spiriva, and prednisone taper. She is on room air. She is in no distress. DKA is being managed by admitting. Currently on NovoLog sliding scale insulin and Levemir. Remains open. Lactic acid level not elevated. We will continue to follow, and further recommendations are forthcoming I have personally seen and examined the patient, performed the documentation and the assessment and plan as written. Number of minutes spent on the visit:20 This is a joint evaluation that was done along with the nurse practitioner. The patient was seen and evaluated the more than 30 minutes. The patient has undergone a right lower lobe resection on 09/29/2023 for non-small cell lung cancer and the patient had a T2a N0M0 disease. Following her discharge, the patient had to be readmitted for shortness of breath. She was found to have DKA. She was also tested positive for Covid 19. She is currently on room air oxygen. She is on IV heparin for a small subsegmental pulmonary emboli in the right lung and there is no evidence of any strain pattern on the echocardiogram. She has a congested cough. She is known to have COPD. Acute kidney injury is resolved. Blood sugars are slightly elevated. No significant anion gap. The serum bicarb is still lowBased on the most recent blood work and the serum bicarbs of 14 with an anion gap of 13. Awaiting labs from today. Morning sugars at 384. The patient is taking Levemir insulin 21 units daily and a sliding scale coverage. Suggest stopping the IV heparin starting the patient on anticoagulation with Eliquis. Suggest discontinuing prednisone of putting the patient on a 7 -day course of Decadron Time with Patient: Greater than 30
--- NOTE | 2023-11-02 08:30 | XR ---
EXAMINATION TYPE: XR chest 1V portable DATE OF EXAM: 11/02/2023 HISTORY: Shortness of breath. COMPARISON: 10/28/2023 TECHNIQUE: Single view of the chest is submitted. FINDINGS: Demonstrated are scattered senescent parenchymal change. Right basilar volume loss with increased opacity. Underlying infiltrate or mass is not excluded. No s ignificant change. The heart is stable. Hilar and mediastinal structures are within normal limits. Degenerative changes are seen of the dorsal spine. IMPRESSION: 1. Right basilar volume loss with increased opacity. Underlying infiltrate or mass is not excluded. No significant change.
[2023-11-02] MEDS: ALBUTEROL HFA INHALER INHALATION SCH ×2 (08:58→11:21)
[2023-11-02] MEDS: TIOTROPIUM 2.5 MCG INHALER INHALATION SCH (08:59)
[2023-11-02] MEDS: FLUTICASONE 110 MCG INHALER INHALATION SCH (09:00)
[2023-11-02] MEDS ORDERED: dexAMETHasone 2 MG TAB PO SCH (09:30)
[2023-11-02] MEDS ORDERED: Apixaban Initiation Dose--VTE 5 MG TAB PO SCH (09:30)
[2023-11-02] MEDS: busPIRone HCl 5 MG TAB PO SCH (09:36)
[2023-11-02] MEDS: GABAPENTIN 400 MG CAP PO SCH (09:36)
[2023-11-02] MEDS: cloNIDine HCL 0.1 MG TAB PO SCH (09:36)
[2023-11-02] MEDS: lisinopriL 5 MG TAB PO SCH (09:37)
[2023-11-02] MEDS: amLODIPine 5 MG TAB PO SCH (09:37)
[2023-11-02] MEDS: MONTELUKAST 10 MG TAB PO SCH (09:41)
[2023-11-02] MEDS: guaiFENesin 600 MG TABLET.ER PO SCH (09:41)
[2023-11-02] MEDS: KETOROLAC 0.5% OPHTH DROPS 5 ML BTL RIGHT EYE SCH ×2 (09:42→13:17)
[2023-11-02] MEDS: BRIMONIDINE TARTRATE 0.2% DROPS 5 ML BTL RIGHT EYE SCH (09:42)
[2023-11-02 10:21] LABS: Basophils % (A) 0 %; Eosinophils % (A) 0 %; HCT 37.5 % (34.0-46.0); HGB 11.7 gm/dL (11.4-16.0); Hypochromasia Moderate; Lymphocytes # (A) 1.8 k/uL (1.0-4.8); Lymphocytes % (A) 22 %; MCH 30.7 pg (25.0-35.0); MCHC 31.3 g/dL (31.0-37.0); Mean Platelet Volume 10.6; Monocytes # (A) 0.6 k/uL (0-1.0); Monocytes % (A) 7 %; Neutrophils # (A) 5.6 k/uL (1.3-7.7); Neutrophils % (A) 69 %; Platelet Count 304 k/uL (150-450); RBC 3.83 m/uL (3.80-5.40); RDW 13.5 % (11.5-15.5); WBC 8.1 k/uL (3.8-10.6)
[2023-11-02 11:02] LABS: African American GFR (CKD) 76 (>60 ml/min/1.73 sqM); Anion Gap 13 mmol/L; Blood Urea Nitrogen 15 mg/dL (7-17); Calcium 8.7 mg/dL (8.4-10.2); Carbon Dioxide 10 mmol/L (22-30); Chloride 111 mmol/L (98-107); Glucose 275 mg/dL (74-99); Non-African American GFR(CKD) 66 (>60 ml/min/1.73 sqM); Potassium 3.4 mmol/L (3.5-5.1); Sodium 134 mmol/L (137-145)
[2023-11-02] MEDS: predniSONE 20 MG TAB PO SCH (11:02)
[2023-11-02 11:36] LABS: Glucose,Whole Blood 258 mg/dL (70-110)
[2023-11-02 13:04] VITALS: BP 112/67; RESP 16
[2023-11-02] MEDS ORDERED: SYMBICORT 160-4.5 MCG INHALER INHALATION SCH (20:00)
--- NOTE | 2023-11-03 09:51 | P.DS ---
Providers Date of admission: 10/26/23 19:12 Expected date of discharge: 11/02/23 Attending physician: Basilio Aleman Consults: 11/01/23 10:40 Consult Physician Urgent Consulting Provider: Laurie Garcia Consult Reason/Comments: PE, right heart strain, on iv heparin, covid, dka Do you want consulting provider notified?: Yes Primary care physician: Ryan Pino Hospital Course: Final diagnosis Chronic obstructive pulmonary disease, acute exacerbation Acute COVID-19 infection with pneumonia Right pulmonary embolism Diabetes mellitus, type II uncontrolled with hyperglycemia as well as DKA on admission Hyponatremia, improved Pleuritic chest pain with previous history of right rib fractures Diabetic nephropathy Hypertension Hypothyroidism History of multiple sclerosis History of anxiety/depression Obesity with BMI 30.3 GI prophylaxis DVT prophylaxis Full code Discharge disposition Patient is being discharged in a stable condition with guarded prognosis to home with home care. Patient will follow-up with Dr. Pino in the outpatient setting upon discharge. Patient is to continue with eliquis 10 mg twice daily for the next 1 week and then titrate down to 5 mg twice daily thereafter. Patient follow-up with pulmonary in the outpatient setting as scheduled. Recommend pain management consult in the outpatient setting as well. Total time taken is greater than 35 minutes. Hospital course This is a 58-year-old female who was recently admitted and found to had COVID-19 with increasing shortness of breath requiring oxygen. Patient being followed by pulmonary with significant history of COPD as well as lung cancer in remission and has history of lobectomy having significant musculoskeletal pain and shortness of breath. Patient has been weaned off oxygen and currently on room air. Patient also found to have uncontrolled diabetes with DKA. Patient reports to having some rib fractures on the right and having extensive rib pain. Blood sugars are better controlled and will continue current regimen recommending outpatient follow-up. Patient may benefit from endocrine evaluation and diabetes education classes. Patient did undergo CTA and was not ed to have a right-sided subsegmental pulmonary emboli with no evidence of heart strain and patient was started on oral anticoagulation. Patient will continue eliquis 10 mg twice daily for 1 week and then titrate down to 5 mg twice daily thereafter. Patient has been cleared by pulmonary for outpatient follow-up and discharge home. Please refer to other consultation notes for further HPI. Currently no reports of chest pain, shortness of breath, or palpitations. Patient is afebrile. No reports of nausea or vomiting and patient is tolerating diet. Patient will be discharged home today. Guarded prognosis and high risk for readmission given patient's significant comorbidities and continued pain. Physical exam: Gen: This is a 58-year-old female who is awake, alert and oriented 3, well- developed, well-nourished, obese HEENT: Head is atraumatic, normocephalic. Pupils equal, round. Sclerae is anicteric. NECK: Supple. No JVD. No lymphadenopathy. No thyromegaly. LUNGS: Diminished breath sounds bilaterally otherwise Clear to auscultation. No wheezes or rhonchi. No intercostal retractions. HEART: Regular rate and rhythm. No murmur. ABDOMEN: Soft. Bowel sounds are present. No masses. No tenderness. EXTREMITIES: No pedal edema. No calf tenderness. NEUROLOGICAL: Patient is awake, alert and oriented x3. Cranial nerves 2 through 12 are grossly intact. Diffusely weak Please refer to medication reconciliation sheet for a list of medications. The impression and plan of care has been dictated by Sanjuana Salazar, Nurse Practitioner as directed. Dr. Ash MD I have performed a history and examination and MDM of this patient, discussed the same with the dictator, and agree with the dictator's assessment and plan as written ,documented as a scribe. Based on total visit time, I have performed more than 50% of the visit. Patient Condition at Discharge: Fair Plan - Discharge Summary Discharge Rx Participant: Yes New Discharge Prescriptions: New Apixaban [Eliquis Starter Pack (for VTE)] 5 - 10 mg PO DIRECTED 30 Days #1 each Benzocaine/Menthol Lozeng [Cepacol lozenge] 1 each MUCOUS MEM Q4HR PRN #20 lozenge PRN Reason: Cough guaiFENesin [Mucinex] 600 mg PO Q12HR 10 Days #20 tab amLODIPine [Norvasc] 5 mg PO DAILY #30 tab Budesonide-Formot 160-4.5 Mcg [Symbicort 160-4.5 Mcg Inhaler] 2 puff INHALATION RT-BID 30 Days #1 each Benzonatate [Tessalon Perles] 100 mg PO TID PRN #20 cap PRN Reason: Cough Acetaminophen Tab [Tylenol] 650 mg PO Q6HR PRN tab PRN Reason: Fever And/ Or Pain Albuterol Inhaler [Ventolin Hfa Inhaler] 2 puff INHALATION RT-QID 30 Days #1 each dexAMETHasone ORAL [Hexadrol] 6 mg PO DAILY 7 Days #21 tab Pantoprazole [Protonix] 40 mg PO AC-BRKFST #30 tab lisinopriL [Zestril] 5 mg PO DAILY #30 tab Ondansetron Odt [Zofran Odt] 4 mg PO Q8HR PRN #10 tab PRN Reason: Nausea HYDROcodone/APAP 7.5-325MG [[place] 7.5-325] 1 each PO Q6HR PRN #5 tab PRN Reason: Pain Continue Levothyroxine Sodium [Synthroid] 25 mcg PO DAILY busPIRone HCL 5 mg PO BID cloNIDine HCL [Catapres] 0.3 mg PO BID Levothyroxine Sodium [Synthroid] 125 mcg PO DAILY Montelukast [Singulair] 10 mg PO DAILY Famotidine [Pepcid] 20 mg PO HS #30 tab Albuterol Sulfate [Albuterol Sulfate Hfa] 1 puff PO RT-Q4H PRN PRN Reason: Shortness Of Breath Ibuprofen [Motrin] 800 mg PO Q8H PRN PRN Reason: Pain Ketorolac 0.5% Ophth Soln [Acular 0.5%] 1 drops RIGHT EYE QID Insulin Aspart Prot/Insuln Asp [Novolog MIX 70-30 Flexpen] See Protocol SQ AC-TID rOPINIRole HCL [Requip] 1 mg PO HS Brimonidine Tartrate [Alphagan P 0.2% Ophth Soln] 1 drops RIGHT EYE BID Gabapentin [Neurontin] 800 mg PO TID Changed Insulin Glargine,Hum.rec.anlog [Lantus Solostar Pen] 20 units SQ DAILY #0 Discontinued HYDROcodone/APAP 5-325MG [[place] 5-325] 1 tab PO Q6HR PRN #12 tab PRN Reason: Pain Discharge Medication List Levothyroxine Sodium [Synthroid] 125 mcg PO DAILY 03/10/22 [History] Montelukast [Singulair] 10 mg PO DAILY 07/28/22 [History] Levothyroxine Sodium [Synthroid] 25 mcg PO DAILY 03/17/23 [History] Famotidine [Pepcid] 20 mg PO HS #30 tab 07/01/23 [Rx] Albuterol Sulfate [Albuterol Sulfate Hfa] 1 puff PO RT-Q4H PRN 09/27/23 [History] busPIRone HCL 5 mg PO BID 09/27/23 [History] Brimonidine Tartrate [Alphagan P 0.2% Ophth Soln] 1 drops RIGHT EYE BID 10/26/23 [History] Gabapentin [Neurontin] 800 mg PO TID 10/26/23 [History] Ibuprofen [Motrin] 800 mg PO Q8H PRN 10/26/23 [History] Insulin Aspart Prot/Insuln Asp [Novolog MIX 70-30 Flexpen] See Protocol SQ AC- TID 10/26/23 [History] Ketorolac 0.5% Ophth Soln [Acular 0.5%] 1 drops RIGHT EYE QID 10/26/23 [History] cloNIDine HCL [Catapres] 0.3 mg PO BID 10/26/23 [History] rOPINIRole HCL [Requip] 1 mg PO HS 10/26/23 [History] Acetaminophen Tab [Tylenol] 650 mg PO Q6HR PRN tab 11/02/23 [Rx] Albuterol Inhaler [Ventolin Hfa Inhaler] 2 puff INHALATION RT-QID 30 Days #1 each 11/02/23 [Rx] Apixaban [Eliquis Starter Pack (for VTE)] 5 - 10 mg PO DIRECTED 30 Days #1 each 11/02/23 [Rx] Benzocaine/Menthol Lozeng [Cepacol lozenge] 1 each MUCOUS MEM Q4HR PRN #20 lozenge 11/02/23 [Rx] Benzonatate [Tessalon Perles] 100 mg PO TID PRN #20 cap 11/02/23 [Rx] Budesonide-Formot 160-4.5 Mcg [Symbicort 160-4.5 Mcg Inhaler] 2 puff INHALATION RT-BID 30 Days #1 each 11/02/23 [Rx] HYDROcodone/APAP 7.5-325MG [[place] 7.5-325] 1 each PO Q6HR PRN #5 tab 11/02/23 [Rx] Insulin Glargine,Hum.rec.anlog [Lantus Solostar Pen] 20 units SQ DAILY #0 11/02/23 [Rx] Ondansetron Odt [Zofran Odt] 4 mg PO Q8HR PRN #10 tab 11/02/23 [Rx] Pantoprazole [Protonix] 40 mg PO AC-BRKFST #30 tab 11/02/23 [Rx] amLODIPine [Norvasc] 5 mg PO DAILY #30 tab 11/02/23 [Rx] dexAMETHasone ORAL [Hexadrol] 6 mg PO DAILY 7 Days #21 tab 11/02/23 [Rx] guaiFENesin [Mucinex] 600 mg PO Q12HR 10 Days #20 tab 11/02/23 [Rx] lisinopriL [Zestril] 5 mg PO DAILY #30 tab 11/02/23 [Rx] Follow up Appointment(s)/Referral(s): [facility], [NON-STAFF] - As Needed Ryan Pino MD [Primary Care Provider] - 11/05/23 9:00 am Laurie Garcia MD [STAFF PHYSICIAN] - 11/30/23 10:00 am Patient Instructions/Handouts: Coronavirus Disease 2019 (COVID-19), Diabetic Ketoacidosis (DC), Basic Carbohydrate Counting (GEN) Activity/Diet/Wound Care/Special Instructions: Wes sanchez is $0 per month. Activity as tolerated until follow-up Follow-up with primary care provider on discharge Follow-up with pulmonary outpatient in 2-3 weeks Continue taking medications as prescribed Discharge Disposition: HOME WITH HOME HEALTH SERVICES
== END 2023-11-02 14:08 | disposition home health service (06) | DRG 177 ==
LOC: EC 14:17 → 3SCARD 19:12 → 4SSUR 10-27 12:14 → 3SCARD 10-29 13:59
PROVIDERS: ADMIT Hospitalist; ATTEND Hospitalist
DX: U07.1 COVID-19 (principal); E11.10 Type 2 diabetes mellitus with ketoacidosis without coma; J12.82 Pneumonia due to coronavirus disease 2019; I26.93 Single subsegmental thrombotic pulmonary embolism without acute cor pulmonale; S22.41XA Multiple fractures of ribs, right side, initial encounter for closed fracture; J44.0 Chronic obstructive pulmonary disease with (acute) lower respiratory infection; J44.1 Chronic obstructive pulmonary disease with (acute) exacerbation; N17.9 Acute kidney failure, unspecified; E87.1 Hypo-osmolality and hyponatremia; J90 Pleural effusion, not elsewhere classified; Z20.822 Contact with and (suspected) exposure to COVID-19; N18.2 Chronic kidney disease, stage 2 (mild); I12.9 Hypertensive chronic kidney disease with stage 1 through stage 4 chronic kidney disease, or unspecified chronic kidney disease; E11.51 Type 2 diabetes mellitus with diabetic peripheral angiopathy without gangrene; Z79.4 Long term (current) use of insulin; E03.9 Hypothyroidism, unspecified; Z79.890 Hormone replacement therapy; G25.81 Restless legs syndrome; G40.909 Epilepsy, unspecified, not intractable, without status epilepticus; G35 Multiple sclerosis; E05.90 Thyrotoxicosis, unspecified without thyrotoxic crisis or storm; Z68.30 Body mass index [BMI] 30.0-30.9, adult; E11.21 Type 2 diabetes mellitus with diabetic nephropathy; E66.9 Obesity, unspecified; M19.90 Unspecified osteoarthritis, unspecified site; Z86.010 Personal history of colon polyps; E86.0 Dehydration; E87.8 Other disorders of electrolyte and fluid balance, not elsewhere classified; F32.A Depression, unspecified; F41.9 Anxiety disorder, unspecified; H54.7 Unspecified visual loss; T38.0X5A Adverse effect of glucocorticoids and synthetic analogues, initial encounter; E11.22 Type 2 diabetes mellitus with diabetic chronic kidney disease; E11.42 Type 2 diabetes mellitus with diabetic polyneuropathy; X58.XXXA Exposure to other specified factors, initial encounter; Z79.01 Long term (current) use of anticoagulants; Z79.899 Other long term (current) drug therapy; Z82.49 Family history of ischemic heart disease and other diseases of the circulatory system; Z85.118 Personal history of other malignant neoplasm of bronchus and lung; Z87.19 Personal history of other diseases of the digestive system; Z90.2 Acquired absence of lung [part of]; Z98.1 Arthrodesis status; Z98.42 Cataract extraction status, left eye; Z98.41 Cataract extraction status, right eye
CPT/HCPCS: 36415; 71045; 71046; 71275; 76705; 80048; 80051; 80053; 82009; 82150; 82565; 82803; 82947; 83036; 83605; 83735; 83880; 84100; 84484; 84520; 85025; 85379; 85610; 85730; 87636; 93005; 93306; 94640; 94760; 96361; 96365; 96366; 96375; 96376; 99291

== ENCOUNTER 2023-11-19 15:51 | Emergency (ER) | payer MEDICARE, OTHER ==
[2023-11-19 16:09] LABS: Glucose,Whole Blood 139 mg/dL (70-110)
[2023-11-19 16:30] LABS: Basophils % (A) 0 %; Eosinophils % (A) 1 %; HCT 37.1 % (34.0-46.0); Lymphocytes % (A) 14 %; MCH 31.3 pg (25.0-35.0); MCHC 32.4 g/dL (31.0-37.0); MCV 96.5 fL (80.0-100.0); Mean Platelet Volume 9.3; Monocytes # (A) 0.3 k/uL (0-1.0); Monocytes % (A) 5 %; Neutrophils # (A) 5.5 k/uL (1.3-7.7); Neutrophils % (A) 80 %; Platelet Count 308 k/uL (150-450); RBC 3.85 m/uL (3.80-5.40); RDW 13.9 % (11.5-15.5); WBC 6.9 k/uL (3.8-10.6)
[2023-11-19 16:38] VITALS: BP 152/69; PULSE 82; RESP 18; TEMP 97
[2023-11-19 16:45] LABS: ALT 19 U/L (4-34); AST 31 U/L (14-36); African American GFR (CKD) 72 (>60 ml/min/1.73 sqM); Alkaline Phosphatase 125 U/L (38-126); Anion Gap 12 mmol/L; Blood Urea Nitrogen 18 mg/dL (7-17); Calcium 9.3 mg/dL (8.4-10.2); Carbon Dioxide 19 mmol/L (22-30); Chloride 109 mmol/L (98-107); Glucose 140 mg/dL (74-99); Non-African American GFR(CKD) 62 (>60 ml/min/1.73 sqM); Sodium 140 mmol/L (137-145); Total Bilirubin 0.5 mg/dL (0.2-1.3); Total Protein 7.4 g/dL (6.3-8.2)
[2023-11-19 16:51] LABS: Potassium 4.5 mmol/L (3.5-5.1)
--- NOTE | 2023-11-19 16:55 | ED ---
General Adult HPI - General Chief complaint: Recheck/Abnormal Lab/Rx Stated complaint: hypoglycemia Time Seen by Provider: 11/19/23 16:00 Source: patient, EMS Mode of arrival: EMS Limitations: no limitations - History of Present Illness Initial comments: 58-year-old female with past medical history of diabetes who presents the emergency department after she was found unresponsive by her roommate. Roommate called EMS who found that the patient had a low glucose. They started an IV and gave her an amp. Patient became more responsive. States that she took her insulin this morning but did not eat. States that she went back to bed. It was in bed that she had been found unresponsive. Denies any injuries. States that she has very labile glucose levels and that she has been hypoglycemic before. No other alleviating, precipitating or modifying factors - Related Data Home Medications Medication Instructions Recorded Confirmed Levothyroxine Sodium [Synthroid] 125 mcg PO DAILY 03/10/22 10/26/23 Montelukast [Singulair] 10 mg PO DAILY 07/28/22 10/26/23 Levothyroxine Sodium [Synthroid] 25 mcg PO DAILY 03/17/23 10/26/23 Albuterol Sulfate [Albuterol 1 puff PO RT-Q4H PRN 09/27/23 10/26/23 Sulfate Hfa] busPIRone HCL 5 mg PO BID 09/27/23 10/26/23 Brimonidine Tartrate [Alphagan P 1 drops RIGHT EYE BID 10/26/23 10/26/23 0.2% Ophth Soln] Gabapentin [Neurontin] 800 mg PO TID 10/26/23 10/26/23 Ibuprofen [Motrin] 800 mg PO Q8H PRN 10/26/23 10/26/23 Insulin Aspart Prot/Insuln Asp See Protocol SQ AC-TID 10/26/23 10/26/23 [Novolog MIX 70-30 Flexpen] Ketorolac 0.5% Ophth Soln [Acular 1 drops RIGHT EYE QID 10/26/23 10/26/23 0.5%] cloNIDine HCL [Catapres] 0.3 mg PO BID 10/26/23 10/26/23 rOPINIRole HCL [Requip] 1 mg PO HS 10/26/23 10/26/23 Previous Rx's Medication Instructions Recorded Famotidine [Pepcid] 20 mg PO HS #30 tab 07/01/23 Acetaminophen Tab [Tylenol] 650 mg PO Q6HR PRN tab 11/02/23 Albuterol Inhaler [Ventolin Hfa 2 puff INHALATION RT-QID 30 Days 11/02/23 Inhaler] #1 each Apixaban [Eliquis Starter Pack 5 - 10 mg PO DIRECTED 30 Days 11/02/23 (for VTE)] #1 each Benzocaine/Menthol Lozeng [Cepacol 1 each MUCOUS MEM Q4HR PRN #20 11/02/23 lozenge] lozenge Benzonatate [Tessalon Perles] 100 mg PO TID PRN #20 cap 11/02/23 Budesonide-Formot 160-4.5 Mcg 2 puff INHALATION RT-BID 30 Days 11/02/23 [Symbicort 160-4.5 Mcg Inhaler] #1 each HYDROcodone/APAP 7.5-325MG [[place] 1 each PO Q6HR PRN #5 tab 11/02/23 7.5-325] Insulin Glargine,Hum.rec.anlog 20 units SQ DAILY #0 11/02/23 [Lantus Solostar Pen] Ondansetron Odt [Zofran Odt] 4 mg PO Q8HR PRN #10 tab 11/02/23 Pantoprazole [Protonix] 40 mg PO AC-BRKFST #30 tab 11/02/23 amLODIPine [Norvasc] 5 mg PO DAILY #30 tab 11/02/23 dexAMETHasone ORAL [Hexadrol] 6 mg PO DAILY 7 Days #21 tab 11/02/23 guaiFENesin [Mucinex] 600 mg PO Q12HR 10 Days #20 tab 11/02/23 lisinopriL [Zestril] 5 mg PO DAILY #30 tab 11/02/23 Allergies Allergy/AdvReac Type Severity Reaction Status Date / Time No Known Allergies Allergy Verified 11/19/23 15:57 Review of Systems ROS Statement: Those systems with pertinent positive or pertinent negative responses have been documented in the HPI. ROS Other: All systems not noted in ROS Statement are negative. 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 OA, efren in Rt ankle. Hx prob w/ cervical discs. Vaccinated for CO VID 19 History of Any Multi-Drug Resistant Organisms: None Reported Past Surgical History: Adenoidectomy, Appendectomy, Tonsillectomy, Tubal Ligation Additional Past Surgical History / Comment(s): Laparoscopies. Pain procedures., cataract, neck fusion. right lower lobectomy. catarcat sx 4 days ago. cervical fusion. ankle fusion Past Anesthesia/Blood Transfusion Reactions: Motion Sickness Additional Past Anesthesia/Blood Transfusion Reaction / Comment(s): no blood tr ansfusions Past Psychological History: Anxiety, Depression Smoking Status: Former smoker Past Alcohol Use History: None Reported Past Drug Use History: None Reported - Past Family History Mother Family Medical History: Myocardial Infarction (ND) Additional Family Medical History / Comment(s): Mother at age 48 from coronary artery disease. Patient does not have any brothers and sisters. She has one adult son with no major medical problems. General Exam Limitations: no limitations General appearance: alert, in no apparent distress Head exam: Present: atraumatic, normocephalic, normal inspection Eye exam: Present: normal appearance, PERRL, EOMI. Absent: scleral icterus, conjunctival injection, periorbital swelling ENT exam: Present: normal exam, mucous membranes moist Neck exam: Present: normal inspection. Absent: tenderness, meningismus, lymphadenopathy Respiratory exam: Present: normal lung sounds bilaterally. Absent: respiratory distress, wheezes, rales, rhonchi, stridor Cardiovascular Exam: Present: regular rate, normal rhythm, normal heart sounds. Absent: systolic murmur, diastolic murmur, rubs, gallop, clicks GI/Abdominal exam: Present: soft, normal bowel sounds. Absent: distended, tenderness, guarding, rebound, rigid Extremities exam: Present: normal inspection, full ROM, normal capillary refill. Absent: tenderness, pedal edema, joint swelling, calf tenderness Back exam: Present: normal inspection Neurological exam: Present: alert, oriented X3, CN II-XII intact Psychiatric exam: Present: normal affect, normal mood Skin exam: Present: warm, dry, intact, normal color. Absent: rash Course Vital Signs 11/19/23 11/19/23 15:54 16:32 Temperature 96.0 F L 97.0 F L Pulse Rate 89 82 Respiratory 20 18 Rate Blood Pressure 132/11 152/69 O2 Sat by Pulse 100 100 Oximetry Medical Decision Making - Medical Decision Making Was pt. sent in by a medical professional or institution (, [facility], AGRICULTURE SCIENCE TEACHER, urgent care, hospital, or fdc...) When possible be specific @ -No Did you speak to anyone other than the patient for history (EMS, parent, family, police, friend...)? What history was obtained from this source @ -EMS Did you review nursing and triage notes (agree or disagree)? Why? @ -I reviewed and agree with nursing and triage notes Were old charts reviewed (outside hosp., previous admission, EMS record, old EKG, old radiological studies, urgent care reports/EKG's, fdc records)? Report findings @ -. The patient's previous discharge summary where she was admitted for DKA Differential Diagnosis (chest pain, altered mental status, abdominal pain women, abdominal pain men, vaginal bleeding, weakness, fever, dyspnea, syncope, headache, dizziness, GI bleed, back pain, seizure, CVA, palpatations, mental hea lth, musculoskeletal)? @ -Differential Altered Mental Status: Hypoglycemia, DKA, hypercapnia, ETOH, overdose, CO poisoning, trauma, myxedema coma, HTN encephalopathy, infection, encephalitis, psychosis, intercranial hemorrhage, hepatic encephalopathy, meningitis, CVA, this is not meant to be an all-inclusive list EKG interpreted by me (3pts min.). @ -Not done X-rays interpreted by me (1pt min.). @ -None done CT interpreted by me (1pt min.). @ -None done U/S interpreted by me (1pt. min.). @ -None done What testing was considered but not performed or refused? (CT, X-rays, U/S, labs)? Why? @ -None What meds were considered but not given or refused? Why? @ -None Did you discuss the management of the patient with other professionals (professionals i.e. , [facility], AGRICULTURE SCIENCE TEACHER, lab, RT, psych nurse, rn social services, senior reactor operator, teacher, probation officer, pillowcase cutter)? Give summary @ -No Was smoking cessation discussed for >3mins.? @ -No Was critical care preformed (if so, how long)? @ -No Were there social determinants of health that impacted care today? How? (Homelessness, low income, unemployed, alcoholism, drug addiction, t ransportation, low edu. Level, literacy, decrease access to med. care, penitentiary, rehab)? @ -No Was there de-escalation of care discussed even if they declined (Discuss DNR or withdrawal of care, Hospice)? DNR status @ -No What co-morbidities impacted this encounter? (DM, HTN, Smoking, COPD, CAD, Cancer, CVA, ARF, Chemo, Hep., AIDS, mental health diagnosis, sleep apnea, morbid obesity)? @ -Diabetes mellitus Was patient admitted / discharged? Hospital course, mention meds given and route , prescriptions, significant lab abnormalities, going to OR and other pertinent info. @ -Upon arrival patient was placed into trauma 3. Thorough history and physical exam was performed. Accu-Chek is obtained and the patient has a glucose of 129. Laboratory studies are conducted. Patient is able to eat a sandwich in the emergency department. Her sugar is rechecked and remains good. Patient is awake and alert and feels comfortable going home. Instructed that she needs to eat before or right after she takes her insulin. Patient understood this. Given written and verbal discharge instructions and discharged home in stable condition Undiagnosed new problem with uncertain prognosis? @ -No Drug Therapy requiring intensive monitoring for toxicity (Heparin, Nitro, Insulin, Cardizem)? @ -No Were any procedures done? @ -No Diagnosis/symptom? @ -Acute encephalopathy, acute hypoglycemia, history of diabetes mellitus Acute, or Chronic, or Acute on Chronic? @ -Acute Uncomplicated (without systemic symptoms) or Complicated (systemic symptoms)? @ -Complicated Side effects of treatment? @ -No Exacerbation, Progression, or Severe Exacerbation? @ -No Poses a threat to life or bodily function? How? (Chest pain, [place], [place], pneumonia, PE, COPD, DKA, ARF, appy, cholecystitis, CVA, Diverticulitis, Homicidal, Suicidal, threat to staff... and all critical care pts) @ -Patient was altered due to hypoglycemia - Lab Data Result diagrams: 11/19/23 15:58 11/19/23 15:58 Lab Results 11/19/23 11/19/23 11/19/23 Range/Units 15:58 15:58 16:07 WBC 6.9 (3.8-10.6) k/uL RBC 3.85 (3.80-5.40) m/uL Hgb 12.0 (11.4-16.0) gm/dL Hct 37.1 (34.0-46.0) % MCV 96.5 (80.0-100.0) fL MCH 31.3 (25.0-35.0) pg MCHC 32.4 (31.0-37.0) g/dL RDW 13.9 (11.5-15.5) % Plt Count 308 (150-450) k/uL MPV 9.3 Neutrophils % 80 % Lymphocytes % 14 % Monocytes % 5 % Eosinophils % 1 % Basophils % 0 % Neutrophils # 5.5 (1.3-7.7) k/uL Lymphocytes # 1.0 (1.0-4.8) k/uL Monocytes # 0.3 (0-1.0) k/uL Eosinophils # 0.0 (0-0.7) k/uL Basophils # 0.0 (0-0.2) k/uL Sodium 140 (137-145) mmol/L Potassium 4.5 (3.5-5.1) mmol/L Chloride 109 H (98-107) mmol/L Carbon Dioxide 19 L (22-30) mmol/L Anion Gap 12 mmol/L BUN 18 H (7-17) mg/dL Creatinine 1.00 (0.52-1.04) mg/dL Est GFR (CKD-EPI)AfAm 72 (>60 ml/min/1.73 sqM) Est GFR (CKD-EPI)NonAf 62 (>60 ml/min/1.73 sqM) Glucose 140 H (74-99) mg/dL POC Glucose (mg/dL) 139 H (70-110) mg/dL POC Glu Industrial Electrical Technician ID Carli Beckman Calcium 9.3 (8.4-10.2) mg/dL Total Bilirubin 0.5 (0.2-1.3) mg/dL AST 31 (14-36) U/L ALT 19 (4-34) U/L Alkaline Phosphatase 125 (38-126) U/L Total Protein 7.4 (6.3-8.2) g/dL Albumin 4.0 (3.5-5.0) g/dL 11/19/23 Range/Units 16:59 WBC (3.8-10.6) k/uL RBC (3.80-5.40) m/uL Hgb (11.4-16.0) gm/dL Hct (34.0-46.0) % MCV (80.0-100.0) fL MCH (25.0-35.0) pg MCHC (31.0-37.0) g/dL RDW (11.5-15.5) % Plt Count (150-450) k/uL MPV Neutrophils % % Lymphocytes % % Monocytes % % Eosinophils % % Basophils % % Neutrophils # (1.3-7.7) k/uL Lymphocytes # (1.0-4.8) k/uL Monocytes # (0-1.0) k/uL Eosinophils # (0-0.7) k/uL Basophils # (0-0.2) k/uL Sodium (137-145) mmol/L Potassium (3.5-5.1) mmol/L Chloride (98-107) mmol/L Carbon Dioxide (22-30) mmol/L Anion Gap mmol/L BUN (7-17) mg/dL Creatinine (0.52-1.04) mg/dL Est GFR (CKD-EPI)AfAm (>60 ml/min/1.73 sqM) Est GFR (CKD-EPI)NonAf (>60 ml/min/1.73 sqM) Glucose (74-99) mg/dL POC Glucose (mg/dL) 199 H (70-110) mg/dL POC Glu Industrial Electrical Technician ID February Calcium (8.4-10.2) mg/dL Total Bilirubin (0.2-1.3) mg/dL AST (14-36) U/L ALT (4-34) U/L Alkaline Phosphatase (38-126) U/L Total Protein (6.3-8.2) g/dL Albumin (3.5-5.0) g/dL Disposition Clinical Impression: DKA, type 1, Hypoglycemia Disposition: HOME SELF-CARE Condition: Stable Instructions (If sedation given, give patient instructions): Hypoglycemia in a Person with Diabetes (DC) Additional Instructions: Please eat before you take your insulin. Follow-up with your doctor and return for any new or worsening symptoms Is patient prescribed a controlled substance at d/c from ED?: No Referrals: Ryan Pino MD [Primary Care Provider] - 1-2 days Time of Disposition: 16:56
[2023-11-19 17:00] LABS: Glucose,Whole Blood 199 mg/dL (70-110)
== END 2023-11-19 17:09 | disposition home or self-care (01) ==
LOC: EC 15:51
DX: E10.649 Type 1 diabetes mellitus with hypoglycemia without coma (principal); J44.9 Chronic obstructive pulmonary disease, unspecified; I10 Essential (primary) hypertension; F41.9 Anxiety disorder, unspecified; F32.A Depression, unspecified; E03.9 Hypothyroidism, unspecified; M19.90 Unspecified osteoarthritis, unspecified site; Z87.891 Personal history of nicotine dependence; Z79.890 Hormone replacement therapy; Z79.1 Long term (current) use of non-steroidal anti-inflammatories (NSAID); Z79.4 Long term (current) use of insulin; Z79.899 Other long term (current) drug therapy; Z86.16 Personal history of COVID-19
CPT/HCPCS: 36415; 80053; 85025; 99284

== ENCOUNTER → 2024-03-16 | Outpatient (CLI) | payer MEDICARE, OTHER ==
[2024-03-16 14:57] LABS: African American GFR (CKD) 78 (>60 ml/min/1.73 sqM); Blood Urea Nitrogen 19 mg/dL (7-17); Non-African American GFR(CKD) 68 (>60 ml/min/1.73 sqM)
--- NOTE | 2024-03-17 15:56 | CT ---
EXAMINATION TYPE: CT chest abdomen w con DATE OF EXAM: 03/16/2024 INDICATION: HX OF LUNG CA COMPARISON: 08/12/2023 CT DLP: 739.30 mGycm CONTRAST: Performed with Oral Contrast and with IV Contrast, patient injected with 100 mL of Isovue 300. TECHNIQUE: Axial images at 5 mm thick sections. Reconstructed images in the coronal plane. Delayed images through the kidneys. FINDINGS: CT CHEST: Portion of the thyroid visualized is normal. There is some streak opacity within the upper lung field could be some atelectasis or related to prio r surgery. The previous right lower lobe lung mass not identified. There is a prior lobectomy. No enlarged mediastinal or hilar adenopathy is evident. The ascending aorta diameter at the level of the main pulmonary artery is 3.0 cm. The main pulmonary artery diameter at the bifurcation is 2.7 cm. Coronary artery calcifications present. CT ABDOMEN: Liver: Normal Spleen: Normal Pancreas: Normal Adrenal glands: The adrenal glands are normal. Gallbladder: Normal Kidneys: No masses are evident. No hydronephrosis is present. No cysts are present. Delayed images were obtained through the kidneys, which remain unremarkable. Aorta: Vascular calcification is within the aorta. Inferior vena cava: Normal. Loops of bowel within the abdomen and upper pelvis distended with oral co ntrast appear normal. There are some loops of bowel lacking oral contrast limiting their evaluation. Appendix: Normal as visualized. IMPRESSION: 1. No suspicious changes for metastatic or recurrent lung cancer.
== END | disposition home or self-care (01) ==
LOC: RADCTMAIN 13:57
PROVIDERS: ATTEND Internal Medicine Critical Care Medicine
DX: C34.90 Malignant neoplasm of unspecified part of unspecified bronchus or lung (principal)
CPT/HCPCS: 82565; 84520; 71260; 74160; 36415; Q9967

== ENCOUNTER 2024-04-02 19:32 | Emergency (ER) | payer MEDICARE, OTHER ==
[2024-04-02 19:46] VITALS: RESP 18
--- NOTE | 2024-04-02 20:10 | ED ---
Female Urogenital HPI - General Chief complaint: Urogenital Stated complaint: Sepsis, UTI, Nausea vomiting Time Seen by Provider: 04/02/24 19:48 Source: EMS Mode of arrival: EMS - History of Present Illness Initial comments: 59-year-old female presenting to the ED with complaints of intermittent nausea vomiting, dark foul-smelling urine over the past few days. Also notes some s uprapubic pain with this as well. Pain does not radiate. Notes associated chills however no fever. No chest pain shortness of breath. No changes in bowel habits. No other complaints at this time. - Related Data Home Medications Medication Instructions Recorded Confirmed Levothyroxine Sodium [Synthroid] 125 mcg PO DAILY 03/10/22 10/26/23 Montelukast [Singulair] 10 mg PO DAILY 07/28/22 10/26/23 Levothyroxine Sodium [Synthroid] 25 mcg PO DAILY 03/17/23 10/26/23 Albuterol Sulfate [Albuterol 1 puff PO RT-Q4H PRN 09/27/23 10/26/23 Sulfate Hfa] busPIRone HCL 5 mg PO BID 09/27/23 10/26/23 Brimonidine Tartrate [Alphagan P 1 drops RIGHT EYE BID 10/26/23 10/26/23 0.2% Ophth Soln] Gabapentin [Neurontin] 800 mg PO TID 10/26/23 10/26/23 Ibuprofen [Motrin] 800 mg PO Q8H PRN 10/26/23 10/26/23 Insulin Aspart Prot/Insuln Asp See Protocol SQ AC-TID 10/26/23 10/26/23 [NovoLOG MIX 70-30 Flexpen] Ketorolac 0.5% Ophth Soln [Acular 1 drops RIGHT EYE QID 10/26/23 10/26/23 0.5%] cloNIDine HCL [Catapres] 0.3 mg PO BID 10/26/23 10/26/23 rOPINIRole HCL [Requip] 1 mg PO HS 10/26/23 10/26/23 Previous Rx's Medication Instructions Recorded Famotidine [Pepcid] 20 mg PO HS #30 tab 07/01/23 Acetaminophen Tab [Tylenol] 650 mg PO Q6HR PRN tab 11/02/23 Albuterol Inhaler [Ventolin Hfa 2 puff INHALATION RT-QID 30 Days 11/02/23 Inhaler] #1 each Apixaban [Eliquis Starter Pack 5 - 10 mg PO DIRECTED 30 Days 11/02/23 (for VTE)] #1 each Benzocaine/Menthol Lozeng [Cepacol 1 each MUCOUS MEM Q4HR PRN #20 11/02/23 lozenge] lozenge Benzonatate [Tessalon Perles] 100 mg PO TID PRN #20 cap 11/02/23 Budesonide-Formot 160-4.5 Mcg 2 puff INHALATION RT-BID 30 Days 11/02/23 [Symbicort 160-4.5 Mcg Inhaler] #1 each HYDROcodone/APAP 7.5-325MG [[place] 1 each PO Q6HR PRN #5 tab 11/02/23 7.5-325] Insulin Glargine,Hum.rec.anlog 20 units SQ DAILY #0 11/02/23 [Lantus Solostar Pen] Ondansetron Odt [Zofran Odt] 4 mg PO Q8HR PRN #10 tab 11/02/23 Pantoprazole [Protonix] 40 mg PO AC-BRKFST #30 tab 11/02/23 amLODIPine [Norvasc] 5 mg PO DAILY #30 tab 11/02/23 dexAMETHasone ORAL [Hexadrol] 6 mg PO DAILY 7 Days #21 tab 11/02/23 guaiFENesin [Mucinex] 600 mg PO Q12HR 10 Days #20 tab 11/02/23 lisinopriL [Zestril] 5 mg PO DAILY #30 tab 11/02/23 Cephalexin [Keflex] 500 mg PO Q6HR 7 Days #28 cap 04/02/24 Ondansetron Odt [Zofran Odt] 4 mg PO Q8HR PRN #10 tab 04/02/24 Allergies Allergy/AdvReac Type Severity Reaction Status Date / Time No Known Allergies Allergy Verified 11/19/23 15:57 Review of Systems ROS Statement: Those systems with pertinent positive or pertinent negative responses have been documented in the HPI. ROS Other: All systems not noted in ROS Statement are negative. 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 OA, efren in Rt ankle. Hx prob w/ cervical discs. Vaccinated for COVID 19 History of Any Multi-Drug Resistant Organisms: None Reported Past Surgical History: Adenoidectomy, Appendectomy, Tonsillectomy, Tubal Ligation Additional Past Surgical History / Comment(s): Laparoscopies. Pain procedures., cataract, neck fusion. right lower lobectomy. catarcat sx 4 days ago. cer vical fusion. ankle fusion Past Anesthesia/Blood Transfusion Reactions: Motion Sickness Additional Past Anesthesia/Blood Transfusion Reaction / Comment(s): no blood transfusions Past Psychological History: Anxiety, Depression Smoking Status: Former smoker Past Alcohol Use History: None Reported Past Drug Use History: None Reported - Past Family History Mother Family Medical History: Myocardial Infarction ([place]) Additional Family Medical History / Comment(s): Mother at age 48 from coronary artery disease. Patient does not have any brothers and sisters. She h as one adult son with no major medical problems. General Exam General appearance: alert, in no apparent distress Head exam: Present: atraumatic, normocephalic Eye exam: Present: normal appearance Neck exam: Present: normal inspection Respiratory exam: Present: normal lung sounds bilaterally Cardiovascular Exam: Present: regular rate GI/Abdominal exam: Present: soft (No significant tenderness to palpation. No rebound guarding or rigidity. Bowel sounds active.) Neurological exam: Present: alert, oriented X3 Skin exam: Present: warm, dry Course Vital Signs 04/02/24 19:35 Temperature 97.6 F Pulse Rate 67 Respiratory 18 Rate Blood Pressure 150/70 O2 Sat by Pulse 100 Oximetry Medical Decision Making - Medical Decision Making Was pt. sent in by a medical professional or institution (MARCELL Cordero, SITE AUDITOR, urgent care, hospital, or custodial...) When possible be specific @ -No Did you speak to anyone other than the patient for history (EMS, parent, family, police, friend...)? What history was obtained from this source @ -No Did you review nursing and triage notes (agree or disagree)? Why? @ -I reviewed and agree with nursing and triage notes Were old charts reviewed (outside hosp., previous admission, EMS record, old EKG, old radiological studies, urgent care reports/EKG's, custodial records)? Report findings @ -No old charts were reviewed Differential Diagnosis (chest pain, altered mental status, abdominal pain women, abdominal pain men, vaginal bleeding, weakness, fever, dyspnea, syncope, headache, dizziness, GI bleed, back pain, seizure, CVA, palpatations, mental health, musculoskeletal)? @ -Differential Abdominal Pain Women: Appendicitis, Cholecystitis, diverticulosis, ischemic bowel, pancreatitis, hepatitis, UTI, gastroenteritis, AAA, incarcerated hernia, bowel obstruction, constipation, inflammatory bowel, hepatitis, peptic ulcer disease, splenic infarction, perforated viscus, vulvitis, ovarian torsion, PID, kidney stone, placenta abruption, this is not meant to be an all-inclusive list EKG interpreted by me (3pts min.). @ -None X-rays interpreted by me (1pt min.). @ -None done CT interpreted by me (1pt min.). @ -None done U/S interpreted by me (1pt. min.). @ -None done What testing was considered but not performed or refused? (CT, X-rays, U/S, labs)? Why? @ -None What meds were considered but not given or refused? Why? @ -None Did you discuss the management of the patient with other professionals (professionals i.e. , PA, SITE AUDITOR, lab, RT, psych nurse, socially responsible investment adviser, dry end tester, teacher, admissions officer, returned case inspector)? Give summary @ -No Was smoking cessation discussed for >3mins.? @ -No Was critical care preformed (if so, how long)? @ -No Were there social determinants of health that impacted care today? How? (Homelessness, low income, unemployed, alcoholism, drug addiction, transportation, low edu. Level, literacy, decrease access to med. care, long term, re hab)? @ -No Was there de-escalation of care discussed even if they declined (Discuss DNR or withdrawal of care, Hospice)? DNR status @ -No What co-morbidities impacted this encounter? (DM, HTN, Smoking, COPD, CAD, Cancer, CVA, ARF, Chemo, Hep., AIDS, mental health diagnosis, sleep apnea, morbid obesity)? @ -None Was patient admitted / discharged? Hospital course, mention meds given and route, prescriptions, significant lab abnormalities, going to OR and other pertinent info. @ -Discharge 59-year-old female presenting to the ED with complaints of intermittent difficulty breathing, dark urine, foul-smelling urine, and suprapubic abdominal pain. On examination no flank tenderness to percussion. Suprapubic tenderness to palpation. Laboratory studies reviewed CBC unremarkable, chemistry panel unremarkable, urine does show evidence of infection with moderate leukocyte zhane rase, 8 white blood cells, rare bacteria. Discharged home in stable condition with prescription for antibiotics. Advise close follow-up with her PCP. Discussed return precautions with patient who verbalized agreement. Undiagnosed new problem with uncertain prognosis? @ -No Drug Therapy requiring intensive monitoring for toxicity (Heparin, Nitro, Insulin, Cardizem)? @ -No Were any procedures done? @ -No Diagnosis/symptom? @ -Urinary tract infection Acute, or Chronic, or Acute on Chronic? @ -Acute Uncomplicated (without systemic symptoms) or Complicated (systemic symptoms)? @ -Uncomplicated Side effects of treatment? @ -No Exacerbation, Progression, or Severe Exacerbation? @ -No Poses a threat to life or bodily function? How? (Chest pain, [place], [place], pneumonia, PE, COPD, DKA, ARF, appy, cholecystitis, CVA, Diverticulitis, Homicidal, Suicidal, threat to staff... and all critical care pts) @ -No - Lab Data Result diagrams: 04/02/24 20:10 04/02/24 20:10 Lab Results 04/02/24 04/02/24 04/02/24 Range/Units 20:10 20:10 20:10 WBC 6.2 (3.8-10.6) k/uL RBC 3.95 (3.80-5.40) m/uL Hgb 12.5 (11.4-16.0) gm/dL Hct 38.6 (34.0-46.0) % MCV 97.8 (80.0-100.0) fL MCH 31.7 (25.0-35.0) pg MCHC 32.4 (31.0-37.0) g/dL RDW 13.6 (11.5-15.5) % Plt Count 294 (150-450) k/uL MPV 9.8 Neutrophils % 68 % Lymphocytes % 25 % Monocytes % 5 % Eosinophils % 1 % Basophils % 0 % Neutrophils # 4.2 (1.3-7.7) k/uL Lymphocytes # 1.6 (1.0-4.8) k/uL Monocytes # 0.3 (0-1.0) k/uL Eosinophils # 0.1 (0-0.7) k/uL Basophils # 0.0 (0-0.2) k/uL Sodium 133 L (137-145) mmol/L Potassium 4.3 (3.5-5.1) mmol/L Chloride 106 (98-107) mmol/L Carbon Dioxide 23 (22-30) mmol/L Anion Gap 4 mmol/L BUN 22 H (7-17) mg/dL Creatinine 0.89 (0.52-1.04) mg/dL Est GFR (CKD-EPI)AfAm 82 (>60 ml/min/1.73 sqM) Est GFR (CKD-EPI)NonAf 71 (>60 ml/min/1.73 sqM) Glucose 155 H (74-99) mg/dL Calcium 9.0 (8.4-10.2) mg/dL Total Bilirubin 0.4 (0.2-1.3) mg/dL AST 33 (14-36) U/L ALT 23 (4-34) U/L Alkaline Phosphatase 108 (38-126) U/L Total Protein 6.8 (6.3-8.2) g/dL Albumin 3.6 (3.5-5.0) g/dL Amylase 63 (30-110) U/L Lipase 54 (23-300) U/L Urine Color Light Yellow Urine Appearance Clear (Clear) Urine pH 6.5 (5.0-8.0) Ur Specific [place] 1.021 (1.001-1.035) Urine Protein 1+ H (Negative) Urine Glucose (UA) Negative (Negative) Urine Ketones 1+ H (Negative) Urine Blood Negative (Negative) Urine Nitrite Negative (Negative) Urine Bilirubin Negative (Negative) Urine Urobilinogen <2.0 (<2.0) mg/dL Ur Leukocyte Esterase Moderate H (Negative) Urine RBC 1 (0-5) /hpf Urine WBC 8 H (0-5) /hpf Ur Squamous Epith Cells 2 (0-4) /hpf Urine Bacteria Rare H (None) /hpf Urine Mucus Rare H (None) /hpf Influenza Type A (PCR) (Not Detectd) Influenza Type B (PCR) (Not Detectd) RSV (PCR) (Not Detectd) SARS-CoV-2 (PCR) (Not Detectd) 04/02/24 Range/Units 20:10 WBC (3.8-10.6) k/uL RBC (3.80-5.40) m/uL Hgb (11.4-16.0) gm/dL Hct (34.0-46.0) % MCV (80.0-100.0) fL MCH (25.0-35.0) pg MCHC (31.0-37.0) g/dL RDW (11.5-15.5) % Plt Count (150-450) k/uL MPV Neutrophils % % Lymphocytes % % Monocytes % % Eosinophils % % Basophils % % Neutrophils # (1.3-7.7) k/uL Lymphocytes # (1.0-4.8) k/uL Monocytes # (0-1.0) k/uL Eosinophils # (0-0.7) k/uL Basophils # (0-0.2) k/uL Sodium (137-145) mmol/L Potassium (3.5-5.1) mmol/L Chloride (98-107) mmol/L Carbon Dioxide (22-30) mmol/L Anion Gap mmol/L BUN (7-17) mg/dL Creatinine (0.52-1.04) mg/dL Est GFR (CKD-EPI)AfAm (>60 ml/min/1.73 sqM) Est GFR (CKD-EPI)NonAf (>60 ml/min/1.73 sqM) Glucose (74-99) mg/dL Calcium (8.4-10.2) mg/dL Total Bilirubin (0.2-1.3) mg/dL AST (14-36) U/L ALT (4-34) U/L Alkaline Phosphatase (38-126) U/L Total Protein (6.3-8.2) g/dL Albumin (3.5-5.0) g/dL Amylase (30-110) U/L Lipase (23-300) U/L Urine Color Urine Appearance (Clear) Urine pH (5.0-8.0) Ur Specific [place] (1.001-1.035) Urine Protein (Negative) Urine Glucose (UA) (Negative) Urine Ketones (Negative) Urine Blood (Negative) Urine Nitrite (Negative) Urine Bilirubin (Negative) Urine Urobilinogen (<2.0) mg/dL Ur Leukocyte Esterase (Negative) Urine RBC (0-5) /hpf Urine WBC (0-5) /hpf Ur Squamous Epith Cells (0-4) /hpf Urine Bacteria (None) /hpf Urine Mucus (None) /hpf Influenza Type A (PCR) Not Detected (Not Detectd) Influenza Type B (PCR) Not Detected (Not Detectd) RSV (PCR) Not Detected (Not Detectd) SARS-CoV-2 (PCR) Not Detected (Not Detectd) Disposition Clinical Impression: UTI (urinary tract infection) Disposition: HOME SELF-CARE Instructions (If sedation given, give patient instructions): Urinary Tract Infection in Women (ED) Additional Instructions: Please return to the Emergency Department if symptoms worsen or any other concerns. Please follow-up with your primary care provider. Prescriptions: Cephalexin [Keflex] 500 mg PO Q6HR 7 Days #28 cap Ondansetron Odt [Zofran Odt] 4 mg PO Q8HR PRN #10 tab PRN Reason: Nausea Is patient prescribed a controlled substance at d/c from ED?: No Referrals: Ryan Pino MD [Primary Care Provider] - 1-2 days Time of Disposition: 22:54
[2024-04-02] MEDS: SODIUM CHLORIDE 0.9% 1,000 ML IV STA (20:19)
[2024-04-02 20:38] LABS: Basophils % (A) 0 %; Eosinophils # (A) 0.1 k/uL (0-0.7); Eosinophils % (A) 1 %; HCT 38.6 % (34.0-46.0); HGB 12.5 gm/dL (11.4-16.0); Lymphocytes # (A) 1.6 k/uL (1.0-4.8); Lymphocytes % (A) 25 %; MCH 31.7 pg (25.0-35.0); MCHC 32.4 g/dL (31.0-37.0); MCV 97.8 fL (80.0-100.0); Mean Platelet Volume 9.8; Monocytes # (A) 0.3 k/uL (0-1.0); Monocytes % (A) 5 %; Neutrophils # (A) 4.2 k/uL (1.3-7.7); Neutrophils % (A) 68 %; Platelet Count 294 k/uL (150-450); RBC 3.95 m/uL (3.80-5.40); RDW 13.6 % (11.5-15.5); WBC 6.2 k/uL (3.8-10.6)
[2024-04-02 20:49] LABS: Appearance,Urine Clear (Clear); Bacteria,Urine Rare /hpf; Bilirubin,Urine Negative (Negative); Blood,Urine Negative (Negative); Color,Urine Light Yellow; Glucose,Urine (UA) Negative (Negative); Ketones,Urine 1+ (Negative); Leukocyte Esterase,Urine Moderate (Negative); Mucus,Urine Rare /hpf; Nitrite,Urine Negative (Negative); PH, Urine 6.5 (5.0-8.0); Protein,Urine 1+ (Negative); RBC,Urine 1 /hpf (0-5); Specific Gravity,Urine 1.021 (1.001-1.035); Squamous Epithelial Cell,Urine 2 /hpf (0-4); Urobilinogen,Urine <2.0 mg/dL (<2.0); WBC,Urine 8 /hpf (0-5)
[2024-04-02 20:58] LABS: ALT 23 U/L (4-34); AST 33 U/L (14-36); African American GFR (CKD) 82 (>60 ml/min/1.73 sqM); Albumin 3.6 g/dL (3.5-5.0); Alkaline Phosphatase 108 U/L (38-126); Amylase 63 U/L (30-110); Anion Gap 4 mmol/L; Blood Urea Nitrogen 22 mg/dL (7-17); Carbon Dioxide 23 mmol/L (22-30); Chloride 106 mmol/L (98-107); Glucose 155 mg/dL (74-99); Lipase 54 U/L (23-300); Non-African American GFR(CKD) 71 (>60 ml/min/1.73 sqM); Potassium 4.3 mmol/L (3.5-5.1); Sodium 133 mmol/L (137-145); Total Bilirubin 0.4 mg/dL (0.2-1.3); Total Protein 6.8 g/dL (6.3-8.2)
[2024-04-02] MEDS: ONDANSETRON 4 MG ODT STARTER PACK 2 TAB BTL PO STA (23:02)
[2024-04-02 23:23] VITALS: BP 141/72; PULSE 71; TEMP 98
== END 2024-04-02 23:09 | disposition home or self-care (01) ==
LOC: EC 19:32
DX: N39.0 Urinary tract infection, site not specified (principal); Z11.52 Encounter for screening for COVID-19; Z87.891 Personal history of nicotine dependence
CPT/HCPCS: 36415; 80053; 82150; 83690; 85025; 81001; 87636; 99284; 96360; S0119

== ENCOUNTER 2024-07-14 12:00 | Observation (INO) | payer MEDICARE, OTHER ==
[~2024-07-14 12:00] MED LIST changes: +CYCLOBENZAPRINE 10 MG TAB ONE; -DEXAMETHASONE SOD PHOSPHATE 4 MG/ML 1 ML VIAL IV ONE; +DEXTROSE 5%-0.45% NACL 1,000 ML BAG IV ONE; +DEXTROSE 50% SYRINGE 50 ML IVP ONE; +FAMOTIDINE 20 MG TAB ONE; +GABAPENTIN 400 MG CAP ONE; +HYDROcodone/APAP 5-325MG 1 EACH TAB ONE; -HYDROmorphone 0.5 MG/0.5 ML SYRINGE IVP PRN; +IBUPROFEN 800 MG TAB ONE; -LACTATED RINGERS 1,000 ML IV SCH; +LEVOTHYROXINE 125 MCG TAB ONE; +LEVOTHYROXINE 25 MCG TAB ONE; +MONTELUKAST 10 MG TAB ONE; +MORPHINE SULFATE 4 MG/ML SYRINGE ONE; -ONDANSETRON 4 MG/2 ML VIAL IVP ONE; +VENLAFAXINE HCL ER 150 MG CAP PO ONE; +VENLAFAXINE HCL ER 75 MG CAP PO ONE
[2024-07-14] MEDS ORDERED: INSULIN ASPART (NovoLOG) 100 UNIT/ML VIAL SQ ONE ×2 (13:10→14:23)
[2024-07-14] MEDS ORDERED: DEXTROSE 50% SYRINGE 50 ML IVP ONE (17:17)
[2024-07-14] MEDS ORDERED: MONTELUKAST 10 MG TAB ONE (21:42)
[2024-07-14] MEDS ORDERED: cloNIDine HCL 0.1 MG TAB ONE (21:42)
[2024-07-14] MEDS ORDERED: GABAPENTIN 400 MG CAP ONE (21:44)
[2024-07-14] MEDS ORDERED: diphenhydrAMINE 25 MG CAP ONE (21:45)
[2024-07-14] MEDS ORDERED: HYDROcodone/APAP 5-325MG 1 EACH TAB ONE (21:46)
[2024-07-14] MEDS ORDERED: SODIUM CHLORIDE 2.5 MEQ/ML IV ONE (23:59)
[2024-07-14] MEDS ORDERED: DEXTROSE 10% IN WATER 1,000 ML BAG IV ONE (23:59)
[2024-07-15] MEDS ORDERED: LEVOTHYROXINE 75 MCG TAB ONE ×2 (05:55→10:12)
[2024-07-15] MEDS ORDERED: LEVOTHYROXINE 100 MCG TAB ONE ×2 (05:55→10:12)
[2024-07-15] MEDS ORDERED: HYDROcodone/APAP 5-325MG 1 EACH TAB ONE ×3 (05:56→15:14)
[2024-07-15] MEDS ORDERED: INSULIN ASPART (NovoLOG) 100 UNIT/ML VIAL SQ ONE ×4 (06:22→20:20)
[2024-07-15] MEDS ORDERED: GABAPENTIN 400 MG CAP ONE ×3 (10:12→20:15)
[2024-07-15] MEDS ORDERED: CYCLOBENZAPRINE 10 MG TAB ONE ×2 (10:19→20:37)
[2024-07-15] MEDS ORDERED: HYDROcodone/APAP 10-325MG 1 EACH TAB ONE ×2 (16:14→22:28)
[2024-07-15] MEDS ORDERED: IBUPROFEN 400 MG TAB ONE (16:16)
[2024-07-15] MEDS ORDERED: MONTELUKAST 10 MG TAB ONE (20:14)
[2024-07-15] MEDS ORDERED: cloNIDine HCL 0.1 MG TAB ONE (20:15)
[2024-07-15] MEDS ORDERED: FAMOTIDINE 20 MG TAB ONE (20:15)
[2024-07-15] MEDS ORDERED: diphenhydrAMINE 25 MG CAP ONE (20:17)
[2024-07-15] MEDS ORDERED: VENLAFAXINE HCL ER 75 MG CAP PO ONE (23:59)
[2024-07-15] MEDS ORDERED: INSULIN DETEMIR (LEVEMIR) 100 UNIT/ML SYR SQ ONE (23:59)
[2024-07-15] MEDS ORDERED: SODIUM ZIRCONIUM CYCLOSILICATE 10 GM PACKET ONE (23:59)
[2024-07-16] MEDS ORDERED: LEVOTHYROXINE 100 MCG TAB ONE (06:33)
[2024-07-16] MEDS ORDERED: LEVOTHYROXINE 75 MCG TAB ONE (06:33)
[2024-07-16] MEDS ORDERED: INSULIN ASPART (NovoLOG) 100 UNIT/ML VIAL SQ ONE ×5 (06:34→23:59)
[2024-07-16] MEDS ORDERED: HYDROcodone/APAP 10-325MG 1 EACH TAB ONE ×4 (06:34→23:55)
[2024-07-16] MEDS ORDERED: GABAPENTIN 400 MG CAP ONE ×2 (08:31→20:57)
[2024-07-16] MEDS ORDERED: MONTELUKAST 10 MG TAB ONE (20:53)
[2024-07-16] MEDS ORDERED: FAMOTIDINE 20 MG TAB ONE (20:53)
[2024-07-16] MEDS ORDERED: cloNIDine HCL 0.1 MG TAB ONE (20:53)
[2024-07-16] MEDS ORDERED: ALPRAZolam 0.25 MG TAB ONE (21:13)
[2024-07-16] MEDS ORDERED: CYCLOBENZAPRINE 10 MG TAB ONE (23:56)
[2024-07-16] MEDS ORDERED: INSULIN DETEMIR (LEVEMIR) 100 UNIT/ML SYR SQ ONE (23:59)
[2024-07-16] MEDS ORDERED: VENLAFAXINE HCL ER 75 MG CAP PO ONE (23:59)
[2024-07-17] MEDS ORDERED: LEVOTHYROXINE 75 MCG TAB ONE (05:32)
[2024-07-17] MEDS ORDERED: LEVOTHYROXINE 100 MCG TAB ONE (05:32)
[2024-07-17] MEDS ORDERED: INSULIN DETEMIR (LEVEMIR) 100 UNIT/ML SYR SQ ONE (09:00)
[2024-07-17] MEDS ORDERED: HYDROcodone/APAP 10-325MG 1 EACH TAB ONE ×2 (09:30→17:03)
[2024-07-17] MEDS ORDERED: GABAPENTIN 400 MG CAP ONE ×2 (09:30→13:23)
[2024-07-17] MEDS ORDERED: INSULIN ASPART (NovoLOG) 100 UNIT/ML VIAL SQ ONE (13:22)
--- NOTE | 2024-08-11 16:52 | CDI ---
Documentation Clarification Form Date: 08/11/2024 04:41:52 PM From: Tali Cartwright Phone: Admit Date: 07/14/2024 04:23:00 PM Patient Name: Sumaya Abbasi Visit Number: [id number] Discharge Date: 07/17/2024 05:30:00 PM ATTENTION: The Clinical Documentation Specialists (CDI) and [facility] Coding Staff appreciate your assistance in clarifying documentation. Please respond to the clarification below the line at the bottom and electronically sign. The CDI & [facility] Coding staff will review the response and follow-up if needed. Please note: Queries are made part of the Legal Health Record. If you have any questions, please contact the author of this message via ITS. Doctor/Provider: Basilio Aleman IDDM with hypoglycemia is documented per ED Note and Progress Notes. Additional specificity regarding the diabetes diagnosis is requested. History/Risk Factors: 59yo F, IDDM, fall w left 5th digit Fx, HTN, COPD, Hx lung Cx sp lobectomy, smoker Clinical Indicators: Initial B 0220: BGL 98 0315 CB (drinking juice) 0350 CB 0420 CB 0520 CB 0530 CB Treatment: per RN note Pt drank 8oz juice and sandwich. Dr Cheney made aware of Pt condition. IV Pt was admitted and insulin regime was adjusted Please clarify the type of diabetes, if known: [ ] Diabetes Type 1 [ ] Diabetes Type 2 [ ] Other, please specify [ ] Unable to Determine (Template Last Revised: January 2021) Diabetes Type 1 MTDD
--- NOTE | 2024-08-15 15:52 | XR ---
Site ID [facility] Sumaya Emerson ID [id number] Order # Procedure XR FOOT LEFT EXAMINATION TYPE: XR foot complete LT DATE OF EXAM: 07/14/2024 1:41 PM CLINICAL INDICATION: LEFT FOOT PAIN AFTER A FALL COMPARISON: THIS EXAM WAS READ DURING PACS DOWNTIME, NO PRIORS AVAILABLE. TECHNIQUE: XR foot complete LT examined in the AP, oblique, and lateral projections. FINDINGS/IMPRESSION: 1. No evidence of acute fracture. Deformity of the base of the fifth digit proximal phalanx correlat e with pain at the base of the fifth digit for acute fracture. 2. Cortical step-off of the fourth digit proximal phalanx also present. Correlate with pain for frac ture. 3. Multifocal degeneration changes throughout the joints of the foot. 4. Atherosclerosis of the arterial vasculature. 5. Remote injury to the distal fibula.
--- NOTE | 2024-08-16 06:10 | XR ---
Patient Sumaya Abbasi ID [id number] Order # EXAMINATION TYPE: XR foot complete LT DATE OF EXAM: 07/15/2024 COMPARISON: No comparison available on downtime PACS. HISTORY: Fall, pain TECHNIQUE: 3 view left foot FINDINGS: Mild degenerative joint change is present first metatarsophalangeal joint space and proxima l interphalangeal joint space first digit. There is a transverse fracture at the base of the proximal phalanx fifth digit. Overlying soft tissue swelling is present. No additional fractures are evident. Plantar calcaneal heel spur is present. Follow up exams can be performed 7-10 days from acute trauma for continued pain. IMPRESSION: 1. Fracture of the base of the proximal phalanx left fifth digit with overlying soft tissue swelling
--- NOTE | 2024-08-16 06:10 | XR ---
Patient Sumaya Abbasi ID [id number] Order # EXAMINATION TYPE: XR ankle limited RT DATE OF EXAM: 07/15/2024 COMPARISON: No comparison available on downtime PACS. HISTORY: Fall pain TECHNIQUE: 2 view left ankle FINDINGS: Ankle mortise is intact. Soft tissues appear normal. No acute fracture or dislocation evide nt. Vascular calcification present. Plantar calcaneal heel spur present. Follow up exams can be perfo rmed 7-10 days from acute trauma for continued pain. IMPRESSION: 1. No acute osseous abnormality left ankle
--- NOTE | 2024-08-22 15:57 | CT ---
EXAM: CT Head Without Intravenous Contrast CLINICAL HISTORY: fall, -loc. pain on back of head and neck. TECHNIQUE: Axial computed tomography images of the head/brain without intravenous contrast. CTDI is 49.2 mGy and DLP is 1052 mGy-cm. This CT exam was performed using one or more of the following dose reduction techniques: automated exposure control, adjustment of the mA and/or kV according to patient size, and/or use of iterative reconstruction technique. COMPARISON: No relevant prior studies available. FINDINGS: Brain:Age-related cerebral volume loss. Periventricular and subcortical white matter hypoattenuation, consistent with chronic microangiopathy. No acute intracranial hemorrhage. No midline shift or mass effect. Ventricles:Unremarkable. No ventriculomegaly. Bones/joints:Unremarkable. No acute fracture. Soft tissues:Unremarkable. Sinuses:Unremarkable as visualized. No acute sinusitis. Mastoid air cells:Unremarkable as visualized. No mastoid effusion. IMPRESSION: No acute intracranial hemorrhage. No midline shift or mass effect. EXAM: CT Cervical Spine Without Intravenous Contrast CLINICAL HISTORY: fall, -loc. pain on back of head and neck. TECHNIQUE: Axial computed tomography images of the cervical spine without intravenous contrast. CTDI is 11.8 mGy and DLP is 320.9 mGy-cm. This CT exam was performed using one or more of the following dose reduction techniques: automated exposure control, adjustment of the mA and/or kV according to patient size, and/or use of iterative reconstruction technique. COMPARISON: No relevant prior studies available. FINDINGS: The vertebral body heights are maintained. The craniocervical junction is intact. The atlanto-dens interval is maintained. The dens is intact. There is no spondylolisthesis. ACDF at C4-C7with corpectomy at C6-7. No CT evidence of hardware failure. Impression. Multilevel cervical spondylosis and degenerative disc disease. Straightening of the cervical lordosis. The unenhanced neck soft tissues are grossly unremarkable. The visualized lung apices are grossly clear. IMPRESSION: 1. No acute fracture or subluxation of the cervical spine. 2. ACDF at C4-C7with corpectomy at C6-7. No CT evidence of hardware failure. Impression. Radiologist: Juliano Rush MD Electronically Signed: 07/14/24 03:56 Study ready at 02:16 and initial results transmitted at 03:56 Results also transmitted to Film Room, Film Room @ [phone] (Fax) [facility]
== END 2024-07-17 17:30 | disposition home or self-care (01) ==
LOC: UNDOADMIN 12:00 → 6NMEDSUR 12:00 → INTOOBSV 16:23 → 6NMEDSUR 16:23 → UNDODISIN 07-17 17:30
PROVIDERS: ADMIT Hospitalist; ATTEND Hospitalist
DX: E10.649 Type 1 diabetes mellitus with hypoglycemia without coma (principal); S92.912A Unspecified fracture of left toe(s), initial encounter for closed fracture; J44.9 Chronic obstructive pulmonary disease, unspecified; Z79.4 Long term (current) use of insulin; I10 Essential (primary) hypertension; F17.210 Nicotine dependence, cigarettes, uncomplicated; W08.XXXA Fall from other furniture, initial encounter; Y92.009 Unspecified place in unspecified non-institutional (private) residence as the place of occurrence of the external cause; Z79.890 Hormone replacement therapy; Z79.899 Other long term (current) drug therapy; Z90.2 Acquired absence of lung [part of]; Z85.118 Personal history of other malignant neoplasm of bronchus and lung
CPT/HCPCS: 96376; 96372; 96374; 96375; 99291; 97161; 73600; 73630 ×2; 72125; 70450; G0378 ×4; J2270

== ENCOUNTER → 2024-07-28 | Outpatient (CLI) | payer MEDICARE, OTHER ==
--- NOTE | 2024-07-28 18:00 | MR ---
EXAMINATION TYPE: MR lumbar spine wo/w con DATE OF EXAM: 07/28/2024 11:05 AM CLINICAL INDICATION: Female, 59 years old with history of M43.12 SPONDYLOLISTHESIS, CERVICAL REGION; PHH, LBP, LLE radiculopathy, hx fall Jun 2024. COMPARISON: None TECHNIQUE: Multi planar, multi sequence imaging was performed utilizing: T1-weighted, T2-weighted, a nd turbo inversion recovery imaging of the lumbar spine. IV Contrast: 6 cc Gadavist. (None if empty) FINDINGS: Alignment: The lumbar vertebral bodies have preserved heights and alignment. Cord: The conus medullaris and the distal spinal cord appear unremarkable with regards to their signa l intensity and morphology. No abnormal postcontrast enhancement. Bones/Discs: Degeneration changes throughout the spine with osteophyte formation and facet joint arth ropathy. Intervertebral disc signal is maintained. Reactive adjoining endplate edema at L5-S1 adjoini ng endplates superior endplate of L3 on the right. T12-L1: No evidence of significant spinal canal stenosis or neural foraminal stenosis. L1-L2: Disc bulge and facet joint arthropathy without significant spinal canal stenosis and mild bila teral neural foraminal stenosis. L2-L3: Disc bulge and facet joint arthropathy result in mild spinal canal and mild bilateral neural f oraminal stenosis. L3-L4: Disc bulge and facet joint arthropathy result in moderate spinal canal and moderate bilateral neural foraminal stenosis. L4-L5: Right central disc extrusion with superior migration of this material to 6 mm. Moderate to sev ere left and [id number] right neural foraminal stenosis. L5-S1: The disc has a rounded posterior morphology without significant spinal canal stenosis. Facet j oint arthropathy with mild bilateral neural foraminal stenosis. Postcontrast enhancement around the f acet joints on the left greater than right. No significant spinal canal or neural foraminal stenosis in the remainder of the visualized levels. Other findings: None. IMPRESSION: 1. L4-L5 central disc extrusion with superior migration this material. 2. L3-L4 disc bulge with moderate spinal canal stenosis and moderate bilateral neural foraminal sten osis 3. Moderate multilevel degeneration changes throughout the spine. Neural foraminal stenosis worse at L4-L5 on the left with moderate to severe.
== END | disposition home or self-care (01) ==
LOC: RADMRIMAIN 10:01
PROVIDERS: ATTEND Physical Medicine & Rehabilitation
DX: M48.062 Spinal stenosis, lumbar region with neurogenic claudication (principal); M47.22 Other spondylosis with radiculopathy, cervical region; M51.15 Intervertebral disc disorders with radiculopathy, thoracolumbar region; M50.123 Cervical disc disorder at C6-C7 level with radiculopathy; M50.323 Other cervical disc degeneration at C6-C7 level; M99.73 Connective tissue and disc stenosis of intervertebral foramina of lumbar region; M51.26 Other intervertebral disc displacement, lumbar region
CPT/HCPCS: 72158; A9585

== ENCOUNTER → 2024-09-18 | Outpatient (CLI) | payer MEDICARE, OTHER ==
[2024-09-18 14:37] LABS: African American GFR (CKD) 46 (>60 ml/min/1.73 sqM); Blood Urea Nitrogen 37 mg/dL (7-17); Non-African American GFR(CKD) 40 (>60 ml/min/1.73 sqM)
--- NOTE | 2024-09-18 15:26 | CT ---
EXAMINATION TYPE: CT chest w con DATE OF EXAM: 09/18/2024 COMPARISON: 06/28/2023 HISTORY: Lung Ca. CT DLP: 288.3 mGycm Automated exposure control for dose reduction was used. TECHNIQUE: CT scan of the chest is performed with IV Contrast, patient injected with 80 mL of Isovue 300. MIP I mages are created on CT scanner and reviewed. 3D reconstructed images are created on an independent w orkstation and reviewed. FINDINGS: The spiculated 2.1 cm mass with cavitation in the right lower lobe is nearly completely resolved. The re is a small 7.5 mm residual nodule. There is a new 5.4 mm nodule in the right upper lobe posteriorl y. There is a new small focal 8 mm groundglass opacity in the left upper lobe. The more anterior left up per lobe groundglass opacity has cleared in the interval. There is no pleural effusion, pleural thickening or pneumothorax. There are right seventh and eighth rib defects likely secondary to surgery. There are surgical changes of partial right lobectomy.. IMPRESSION: 1. Postsurgical changes of partial right lower lobe lobectomy. 2. 2 right lung nodules and left groundglass opacity described above. Recurrent disease cannot be ent irely excluded and short-term follow-up is recommended. [facility], Workstation: JOSE LUIS, 09/18/2024 3:23 PM
== END | disposition home or self-care (01) ==
LOC: RADCTMAIN 14:03
PROVIDERS: ATTEND Internal Medicine Critical Care Medicine
CPT/HCPCS: 36415; 71260; 82565; 84520

== ENCOUNTER 2024-11-15 18:29 | Inpatient (IN) | payer MEDICARE, OTHER ==
[2024-11-15 19:09] LABS: Basophils % (A) 0 %; Eosinophils % (A) 0 %; HCT 32.3 % (34.0-46.0); HGB 10.7 gm/dL (11.4-16.0); Lymphocytes # (A) 0.7 k/uL (1.0-4.8); Lymphocytes % (A) 6 %; MCH 32.1 pg (25.0-35.0); MCV 97.3 fL (80.0-100.0); Mean Platelet Volume 9.4; Monocytes # (A) 0.2 k/uL (0-1.0); Monocytes % (A) 2 %; Neutrophils # (A) 10.7 k/uL (1.3-7.7); Neutrophils % (A) 92 %; Platelet Count 339 k/uL (150-450); RBC 3.32 m/uL (3.80-5.40); RDW 13.4 % (11.5-15.5); WBC 11.6 k/uL (3.8-10.6)
[2024-11-15 19:29] LABS: ALT 25 U/L (4-34); AST 34 U/L (14-36); African American GFR (CKD) 53 (>60 ml/min/1.73 sqM); Albumin 4.2 g/dL (3.5-5.0); Alkaline Phosphatase 106 U/L (38-126); Anion Gap 11 mmol/L; Blood Urea Nitrogen 36 mg/dL (7-17); Calcium 9.5 mg/dL (8.4-10.2); Carbon Dioxide 20 mmol/L (22-30); Chloride 103 mmol/L (98-107); Glucose 194 mg/dL (74-99); Magnesium 1.9 mg/dL (1.6-2.3); Non-African American GFR(CKD) 46 (>60 ml/min/1.73 sqM); Potassium 5.5 mmol/L (3.5-5.1); Sodium 134 mmol/L (137-145); Total Bilirubin 0.3 mg/dL (0.2-1.3); Total Protein 7.2 g/dL (6.3-8.2)
[2024-11-15 19:34] LABS: NT-Pro-B-Type Natriuretic Pept 4210 pg/mL
--- NOTE | 2024-11-15 19:34 | ED ---
SOB HPI - General Chief Complaint: Shortness of Breath Stated Complaint: SOB Time Seen by Provider: 11/15/24 18:39 Source: patient, RN notes reviewed, old records reviewed Mode of arrival: EMS Limitations: no limitations - History of Present Illness Initial Comments: This is a 59 female presenting from her home as she was called with abnormal chest x-ray findings may be fluid on her lungs. Patient was in her primary care's office yesterday received an x-ray told she had pneumonia and started on antibiotics. Patient is having cough congestion episodic fevers but no significant shortness of breath currently. No chest pain MD Complaint: shortness of breath, cough -: days(s) Severity: moderate Severity scale (1-10): 4 Consistency: constant Improves With: oxygen, rest Worsens With: lying flat, exertion Known History Of: COPD, asthma Context: recent URI, recent illness Associated Symptoms: cough Treatments Prior to Arrival: none - Related Data Home Medications Medication Instructions Recorded Confirmed Montelukast [Singulair] 10 mg PO DAILY 07/28/22 11/15/24 Albuterol Sulfate [Albuterol 2 puff INHALATION RT-Q6H PRN 09/27/23 11/15/24 Sulfate Hfa] Gabapentin [Neurontin] 800 mg PO TID 10/26/23 11/15/24 Insulin Aspart Prot/Insuln Asp See Protocol SQ BID 10/26/23 11/15/24 [NovoLOG MIX 70-30 Flexpen] cloNIDine HCL [Catapres] 0.3 mg PO HS 10/26/23 11/15/24 Albuterol Nebulized [Ventolin 2.5 mg INHALATION RT-Q4H PRN 11/15/24 11/15/24 Nebulized] Cyclobenzaprine [Flexeril] 10 mg PO TID PRN 11/15/24 11/15/24 HYDROcodone/APAP 5-325MG [Nelson 1 tab PO TID PRN 11/15/24 11/15/24 5-325] Insulin Aspart [NovoLOG Flexpen] See Protocol SQ ACHS 11/15/24 11/15/24 Levothyroxine Sodium [Synthroid] 175 mcg PO DAILY 11/15/24 11/15/24 busPIRone HCL 15 mg PO BID PRN 11/15/24 11/15/24 diphenhydrAMINE [Benadryl] 25 mg PO DAILY PRN 11/15/24 11/15/24 rOPINIRole HCL [Requip] 2 mg PO HS 11/15/24 11/15/24 traMADol HCL 50 mg PO BID PRN 11/15/24 11/15/24 Previous Rx's Medication Instructions Recorded Benzonatate [Tessalon Perles] 100 mg PO TID PRN #20 cap 11/02/23 Budesonide-Formot 160-4.5 Mcg 2 puff INHALATION RT-BID 30 Days 11/02/23 [Symbicort 160-4.5 Mcg Inhaler] #1 each Insulin Glargine,Hum.rec.anlog 20 units SQ DAILY #0 11/02/23 [Lantus Solostar Pen] Aspirin 81 mg PO DAILY 30 Days #30 tab 11/20/24 Atorvastatin [Lipitor] 40 mg PO HS 30 Days #30 tab 11/20/24 Dapagliflozin Propanediol [Farxiga] 10 mg PO DAILY 30 Days #30 tab 11/20/24 Furosemide [Lasix] 40 mg PO DAILY 30 Days #30 tab 11/20/24 Nicotine [Nicoderm Cq 21 mg] 21 mg TRANSDERM DAILY 21 Days #21 11/20/24 patch Ticagrelor [Brilinta] 90 mg PO BID 30 Days #60 tab 11/20/24 predniSONE [Deltasone] 40 mg PO DAILY 3 Days #6 tab 11/20/24 Allergies Allergy/AdvReac Type Severity Reaction Status Date / Time erythromycin base AdvReac Nausea & Verified 11/15/24 20:11 Vomiting Review of Systems ROS Statement: Those systems with pertinent positive or pertinent negative responses have been documented in the HPI. ROS Other: All systems not noted in ROS Statement are negative. Past Medical History Past Medical History: COPD, Diabetes Mellitus, Eye Disorder, Hypertension, Musculoskeletal Disorder, Osteoarthritis (OA), Thyroid Disorder Additional Past Medical History / Comment(s): COPD, diabetes, GERD, oste oarthritis, seizure disorder secondary to hypoglycemia , hypothyroid, multiple sclerosis, diabetic peripheral neuropathy, optic neuritis, decreased vision in the eyes,; this problem, restless leg syndrome, colon polyps, anxiety depression. OA, efren in Rt ankle. Hx prob w/ cervical discs. Vaccinated for COVID 19 History of Any Multi-Drug Resistant Organisms: None Reported Past Surgical History: Adenoidectomy, Appendectomy, Tonsillectomy, Tubal Li gation Additional Past Surgical History / Comment(s): Laparoscopies. Pain procedures., cataract, neck fusion. right lower lobectomy. catarcat sx 4 days ago. cervical fusion. ankle fusion Past Anesthesia/Blood Transfusion Reactions: Motion Sickness Additional Past Anesthesia/Blood Transfusion Reaction / Comment(s): no blood transfusions Past Psychological History: Anxiety, Depression Smoking Status: Former smoker Past Alcohol Use History: None Reported Past Drug Use History: Marijuana - Past Family History Mother Family Medical History: Myocardial Infarction (ND) Additional Family Medical History / Comment(s): Mother at age 48 from coronary artery disease. Patient does not have any brothers and sisters. She has one adult son with no major medical problems. General Exam General appearance: alert, in no apparent distress Head exam: Present: atraumatic, normocephalic, normal inspection Eye exam: Present: normal appearance, PERRL, EOMI. Absent: scleral icterus, conjunctival injection, periorbital swelling ENT exam: Present: normal exam, mucous membranes moist Neck exam: Present: normal inspection. Absent: tenderness, meningismus, lymphadenopathy Respiratory exam: Present: normal lung sounds bilaterally. Absent: respiratory distress, wheezes, rales, rhonchi, stridor Cardiovascular Exam: Present: regular rate, normal rhythm, normal heart sounds. Absent: systolic murmur, diastolic murmur, rubs, gallop, clicks GI/Abdominal exam: Present: soft, normal bowel sounds. Absent: distended, tenderness, guarding, rebound, rigid Extremities exam: Present: normal inspection, full ROM, normal capillary refill. Absent: tenderness, pedal edema, joint swelling, calf tenderness Back exam: Present: normal inspection Neurological exam: Present: alert, oriented X3, CN II-XII intact Psychiatric exam: Present: normal affect, normal mood Skin exam: Present: warm, dry, intact, normal color. Absent: rash Course Vital Signs 11/15/24 11/15/24 11/15/24 18:35 19:55 20:13 Temperature 98.7 F Pulse Rate 93 86 88 Respiratory 20 Rate Blood Pressure 160/69 O2 Sat by Pulse 99 Oximetry 11/15/24 11/16/24 11/16/24 20:45 00:09 00:40 Temperature Pulse Rate 86 76 61 Respiratory 18 18 Rate Blood Pressure 149/79 74/43 77/42 O2 Sat by Pulse 99 97 96 Oximetry 11/16/24 11/16/24 11/16/24 01:20 01:40 02:40 Temperature Pulse Rate 55 L 54 L Respiratory 24 Rate Blood Pressure 71/38 78/48 82/53 O2 Sat by Pulse 100 100 Oximetry 11/16/24 11/16/24 11/16/24 04:40 07:04 08:14 Temperature 97.8 F Pulse Rate 54 L 73 78 Respiratory 18 18 Rate Blood Pressure 111/72 111/59 O2 Sat by Pulse 98 100 Oximetry 11/16/24 11/16/24 11/16/24 08:18 08:26 09:12 Temperature 98 F Pulse Rate 79 96 Respiratory 18 Rate Blood Pressure 107/70 O2 Sat by Pulse 99 99 Oximetry - Reevaluation(s) Reevaluation #1: 11/15/24 18:47 Records reviewed Reevaluation #2: 11/15/24 19:19 Symptoms improving Reevaluation #3: 11/15/24 19:54 Patient has no change in symptoms Reevaluation #4: Was pt. sent in by a medical professional or institution (, PA, [employer], urgent care, hospital, or senior care...) When possible be specific @ -no Did you speak to anyone other than the patient for history (EMS, parent, family, police, friend...)? What history was obtained from this source @ -no Did you review nursing and triage notes (agree or disagree)? Why? @ -agree Are old charts reviewed (outside hosp., previous admission, EMS record, old EKG, old radiological studies, urgent care reports/EKG's, senior care records)? Report findings @ -yes Differential Diagnosis (chest pain, altered mental status, abdominal pain women, abdominal pain men, vaginal bleeding, weakness, fever, dyspnea, syncope, headache, dizziness, GI bleed, back pain, seizure, CVA, palpatations, mental health, musculoskeletal)? @ -prior EKG interpreted by me (3pts min.). @ -yes X-rays interpreted by me (1pt min.). @ -yes negative for acute disease CT interpreted by me (1pt min.). @ -Yes negative for acute U/S interpreted by me (1pt. min.). @ -no What testing was considered but not performed or refused? (CT, X-rays, U/S, labs)? Why? @ -none What meds were considered but not given or refused? Why? @ -none Did you discuss the management of the patient with other professionals (professionals i.e. , PA, [employer], lab, RT, psych nurse, social media editor, lasting room supervisor, teacher, correctional program officer, case planner)? Give summary @ -no Was smoking cessation discussed for >3mins.? @ -no Was critical care preformed (if so, how long)? @ -yes31 Were there social determinants of health that impacted care today? How? (Homelessness, low income, unemployed, alcoholism, drug addiction, transportation, low edu. Level, literacy, decrease access to med. care, fci, rehab)? @ -none Was there de-escalation of care discussed even if they declined (Discuss DNR or withdrawal of care, Hospice)? DNR status @ -no What co-morbidities impacted this encounter? (DM, HTN, Smoking, COPD, CAD, Cancer, CVA, ARF, Chemo, Hep., AIDS, mental health diagnosis, sleep apnea, morbid obesity)? @ -none Was patient admitted / discharged? Hospital course, mention meds given and route, prescriptions, significant lab abnormalities, going to OR and other pertinent info. @ - 59 female to the ER today with chest pain and shortness of breath , patient to be admitted for CHF exacerbation elevated troponin female with CHF and non- STEMI, Admitted chest pain non-STEMI Undiagnosed new problem with uncertain prognosis? @ -no Drug Therapy requiring intensive monitoring for toxicity (Heparin, Nitro, Insulin, Cardizem)? @ -no Were any procedures done? @ -no Diagnosis/symptom? @ -Chest pain non-STEMI CHF Acute, or Chronic, or Acute on Chronic? @ -Acute Uncomplicated (without systemic symptoms) or Complicated (systemic symptoms)? @ -Complicated Side effects of treatment? @ -no Exacerbation, Progression, or Severe Exacerbation? @ -exacerbation Poses a threat to life or bodily function? How? (Chest pain, USA, ND, pneumonia, PE, COPD, DKA, ARF, appy, cholecystitis, CVA, Diverticulitis, Homicidal, Suicidal, threat to staff... and all critical care pts) @ -yes chest pain Reevaluation #5: Differential Dyspnea: Coronary syndrome, arrhythmia, tamponade, asthma, COPD, pulmonary embolism, pneumonia, pneumothorax, pulmonary effusion, anaphylaxis, diabetic ketoacidosis, flailed chest, pulmonary contusion, diaphragmatic rupture, anemia, neuromuscular, this is not meant to be an all-inclusive list. - Consultations Consultation #1: Spoke with Dr. Keen agrees to admit this patient Medical Decision Making - Medical Decision Making 59 female to the ER today with chest pain and shortness of breath , patient to be admitted for CHF exacerbation elevated troponin female with CHF and non- STEMI, - Lab Data Result diagrams: 11/19/24 06:58 11/19/24 06:58 Lab Results 11/15/24 11/15/24 11/15/24 Range/Units 18:53 18:53 18:53 WBC 11.6 H (3.8-10.6) k/uL RBC 3.32 L (3.80-5.40) m/uL Hgb 10.7 L (11.4-16.0) gm/dL Hct 32.3 L (34.0-46.0) % MCV 97.3 (80.0-100.0) fL MCH 32.1 (25.0-35.0) pg MCHC 33.0 (31.0-37.0) g/dL RDW 13.4 (11.5-15.5) % Plt Count 339 (150-450) k/uL MPV 9.4 Neutrophils % 92 % Lymphocytes % 6 % Monocytes % 2 % Eosinophils % 0 % Basophils % 0 % Neutrophils # 10.7 H (1.3-7.7) k/uL Lymphocytes # 0.7 L (1.0-4.8) k/uL Monocytes # 0.2 (0-1.0) k/uL Eosinophils # 0.0 (0-0.7) k/uL Basophils # 0.0 (0-0.2) k/uL PT 10.2 (10.0-12.5) sec INR 0.9 (<1.2) APTT 23.8 (22.0-30.0) sec Sodium 134 L (137-145) mmol/L Potassium 5.5 H (3.5-5.1) mmol/L Chloride 103 (98-107) mmol/L Carbon Dioxide 20 L (22-30) mmol/L Anion Gap 11 mmol/L BUN 36 H (7-17) mg/dL Creatinine 1.28 H (0.52-1.04) mg/dL Est GFR (CKD-EPI)AfAm 53 (>60 ml/min/1.73 sqM) Est GFR (CKD-EPI)NonAf 46 (>60 ml/min/1.73 sqM) Glucose 194 H (74-99) mg/dL Plasma Lactic Acid Roger (0.7-2.0) mmol/L Calcium 9.5 (8.4-10.2) mg/dL Magnesium 1.9 (1.6-2.3) mg/dL Total Bilirubin 0.3 (0.2-1.3) mg/dL AST 34 (14-36) U/L ALT 25 (4-34) U/L Alkaline Phosphatase 106 (38-126) U/L Troponin I (0.000-0.034) ng/mL NT-Pro-B Natriuret Pep 4210 pg/mL Total Protein 7.2 (6.3-8.2) g/dL Albumin 4.2 (3.5-5.0) g/dL 11/15/24 11/15/24 Range/Units 18:53 18:53 WBC (3.8-10.6) k/uL RBC (3.80-5.40) m/uL Hgb (11.4-16.0) gm/dL Hct (34.0-46.0) % MCV (80.0-100.0) fL MCH (25.0-35.0) pg MCHC (31.0-37.0) g/dL RDW (11.5-15.5) % Plt Count (150-450) k/uL MPV Neutrophils % % Lymphocytes % % Monocytes % % Eosinophils % % Basophils % % Neutrophils # (1.3-7.7) k/uL Lymphocytes # (1.0-4.8) k/uL Monocytes # (0-1.0) k/uL Eosinophils # (0-0.7) k/uL Basophils # (0-0.2) k/uL PT (10.0-12.5) sec INR (<1.2) APTT (22.0-30.0) sec Sodium (137-145) mmol/L Potassium (3.5-5.1) mmol/L Chloride (98-107) mmol/L Carbon Dioxide (22-30) mmol/L Anion Gap mmol/L BUN (7-17) mg/dL Creatinine (0.52-1.04) mg/dL Est GFR (CKD-EPI)AfAm (>60 ml/min/1.73 sqM) Est GFR (CKD-EPI)NonAf (>60 ml/min/1.73 sqM) Glucose (74-99) mg/dL Plasma Lactic Acid Roger 1.2 (0.7-2.0) mmol/L Calcium (8.4-10.2) mg/dL Magnesium (1.6-2.3) mg/dL Total Bilirubin (0.2-1.3) mg/dL AST (14-36) U/L ALT (4-34) U/L Alkaline Phosphatase (38-126) U/L Troponin I 0.169 H* (0.000-0.034) ng/mL NT-Pro-B Natriuret Pep pg/mL Total Protein (6.3-8.2) g/dL Albumin (3.5-5.0) g/dL - EKG Data -: EKG Interpreted by Me (EKG is sinus 86 MD 150 QRS 89 QTc 402) - Radiology Data Radiology results: report reviewed (Chest x-ray is negative for significant acute disease here in the ER), image reviewed Critical Care Time Critical Care Time: Yes Total Critical Care Time: 31 Disposition Clinical Impression: Community acquired pneumonia, COPD with acute exacerbation, Weakness, Congestive heart failure, Acute pulmonary edema, NSTEMI (non-ST elevated myocardial infarction) Disposition: ADMITTED IP TO THIS HOSP Condition: Fair Is patient prescribed a controlled substance at d/c from ED?: No Time of Disposition: 20:00
--- NOTE | 2024-11-15 19:38 | XR ---
EXAMINATION TYPE: XR chest 2V DATE OF EXAM: 11/15/2024 7:18 PM COMPARISON: 11/02/2023 CLINICAL INDICATION: Female, 59 years old with history of SOB, TECHNIQUE: Frontal and lateral views of the chest are obtained. FINDINGS: Chronic elevation right hemidiaphragm with blunting right costophrenic angle which may ref lect chronic pleural thickening. The remainder of the lungs are clear. There is no focal air space op acity, pleural effusion, or pneumothorax seen. The cardiac silhouette size is within normal limits. The osseous structures are intact. IMPRESSION: No acute cardiopulmonary process. [facility], , 11/15/2024 7:36 PM
[2024-11-15 19:42] LABS: INR 0.9 (<1.2); Partial Thromboplastin Time 23.8 sec (22.0-30.0); Prothrombin Time 10.2 sec (10.0-12.5)
[2024-11-15] MEDS ORDERED: MORPHINE SULFATE 4 MG/ML SYRINGE IV PRN (19:55)
[2024-11-15] MEDS: IPRATROPIUM-ALBUTEROL 3 ML NEB INHALATION STA ×2 (19:55→22:59)
[2024-11-15] MEDS: KETOROLAC 15 MG/ML 1 ML VIAL IVP STA (19:57)
[2024-11-15] MEDS ORDERED: HEPARIN SODIUM 1,000 UN/ML (10ML VL) IV PRN (19:58)
[2024-11-15] MEDS: SODIUM CHLORIDE 0.9% 1,000 ML IV STA (20:00)
[2024-11-15] MEDS: MORPHINE SULFATE 4 MG/ML SYRINGE IVP STA (20:00)
[2024-11-15] MEDS ORDERED: diphenhydrAMINE 25 MG CAP PO PRN (20:40)
[2024-11-15] MEDS ORDERED: DEXTROSE 50% SYRINGE 50 ML IVP PRN ×2 (20:44)
[2024-11-15] MEDS: HEPARIN SODIUM 1,000 UN/ML (10ML VL) IV ONE (20:53)
[2024-11-15] MEDS: FUROSEMIDE 10 MG/ML 4 ML VIAL IV SCH (21:07)
--- NOTE | 2024-11-15 21:33 | CT ---
EXAMINATION TYPE: CT brain wo con DATE OF EXAM: 11/15/2024 COMPARISON: 07/14/2024 CLINICAL INDICATION: Female, 59 years old with history of fall; [facility] before starting patient on heprin. TECHNIQUE: CT scan of the head is performed without contrast. CT DLP: 1076.[address] CTDI: mGy Automated exposure control for dose reduction was used. FINDINGS: There is no acute intracranial hemorrhage or midline shift identified. There is diffuse v entricular and sulcal prominence consistent with diffuse age-related cerebral atrophy. There is low- attenuation in the periventricular white matter consistent with chronic small vessel ischemic change. The globes are intact and the visualized sinuses are clear. IMPRESSION: No acute intracranial hemorrhage or midline shift. There is diffuse age-related cerebra l atrophy and chronic small vessel ischemic change noted. [facility], , 11/15/2024 9:31 PM
[2024-11-15] MEDS: HEPARIN SOD,PORK IN 0.45% NACL 25,000 UNIT in 0.45% NACL 1 250ML.BAG IV SCH (22:31)
[2024-11-15] MEDS: GABAPENTIN 400 MG CAP PO SCH (22:44)
[2024-11-15] MEDS: cloNIDine HCL 0.1 MG TAB PO SCH (22:44)
[2024-11-15] MEDS: INSULIN ASPART (NovoLOG) 100 UNIT/ML VIAL SQ SCH (22:45)
[2024-11-15] MEDS: methylPREDNISolone SOD SUCCI 40 MG/ML 1 ML VIAL IV SCH (22:45)
[2024-11-15] MEDS: AZITHROMYCIN 500 MG in SODIUM CHLORIDE 0.9% 250 ML IVPB SCH (22:59)
[2024-11-15] MEDS: HYDROcodone/APAP 5-325MG 1 EACH TAB PO PRN (23:05)
[2024-11-16 03:56] LABS: Glucose,Whole Blood 191 mg/dL (70-110)
[2024-11-16 07:16] LABS: Glucose,Whole Blood 332 mg/dL (70-110)
[2024-11-16] MEDS: LEVOTHYROXINE 88 MCG TAB PO SCH (07:32)
[2024-11-16] MEDS: INSULIN DETEMIR (LEVEMIR) 100 UNIT/ML SYR SQ SCH ×2 (07:34→21:00)
[2024-11-16] MEDS: ALBUTEROL NEBULIZED 2.5 MG/3 ML INHALATION PRN (08:13)
[2024-11-16] MEDS: SYMBICORT 160-4.5 MCG INHALER INHALATION SCH (08:14)
[2024-11-16] MEDS: MONTELUKAST 10 MG TAB PO SCH (08:17)
[2024-11-16 08:41] LABS: African American GFR (CKD) 47 (>60 ml/min/1.73 sqM); Anion Gap 6 mmol/L; Blood Urea Nitrogen 42 mg/dL (7-17); Calcium 8.9 mg/dL (8.4-10.2); Carbon Dioxide 21 mmol/L (22-30); Chloride 105 mmol/L (98-107); Glucose 330 mg/dL (74-99); Non-African American GFR(CKD) 40 (>60 ml/min/1.73 sqM); Potassium 5.8 mmol/L (3.5-5.1); Sodium 132 mmol/L (137-145)
[2024-11-16] MEDS ORDERED: NITROGLYCERIN SL TABS 0.4 MG TAB SUBLINGUAL PRN ×2 (08:51→12:55)
[2024-11-16] MEDS: ATORVASTATIN 80 MG TAB PO STA (09:10)
[2024-11-16] MEDS: ASPIRIN 325 MG TAB PO STA (09:10)
[2024-11-16] MEDS: ALPRAZolam 0.25 MG TAB PO PRN (10:17)
[2024-11-16] MEDS: CYCLOBENZAPRINE 10 MG TAB PO PRN (10:20)
--- NOTE | 2024-11-16 10:35 | CA ---
Transthoracic Echo Report Name: Sumaya Abbasi Age: 59 Gender: F : 1965 Exam Date: 11/16/2024 07:38 Exam Location: [place] [facility] Ht (in): 60 Wt (lb): 154 Ordering Physician: Donnie Ernst DO Attending/Referring Phys: [id number], Sujata Supervisor [employer] Ayesha Christensen RDCS Procedure CPT: Indications: Heart failure Cardiac Hx: Technical Quality: Fair Contrast 1: Total Dose (mL): Contrast 2: Total Dose (mL): MEASUREMENTS (Male / Female) Normal Values 2D ECHO LV Diastolic Diameter PLAX 4.8 cm 4.2 - 5.9 / 3.9 - 5.3 cm LV Systolic Diameter PLAX 3.4 cm IVS Diastolic Thickness 1.0 cm 0.6 - 1.0 / 0.6 - 0.9 cm LVPW Diastolic Thickness 1.0 cm 0.6 - 1.0 / 0.6 - 0.9 cm LV Relative Wall Thickness 0.4 LVOT Diameter 1.9 cm LV Diastolic Volume MOD BP 98.1 cm??? 67 - 155 / 56 - 104 cm??? LV Systolic Volume MOD BP 41.3 cm??? 22 - 58 / 19 - 49 cm??? LV Ejection Fraction MOD BP 57.9 % >= 55 % LV Cardiac Index MOD BP 2344.2 cm???/min???m??? LV Diastolic Volume MOD 4C 109.2 cm??? LV Systolic Volume MOD 4C 45.2 cm??? LV Ejection Fraction MOD 4C 58.6 % LV Cardiac Index MOD 4C 2638.7 cm???/min???m??? LV Diastolic Length 4C 8.3 cm LV Systolic Length 4C 6.5 cm LV Diastolic Volume MOD 2C 85.9 cm??? LV Systolic Volume MOD 2C 34.6 cm??? LV Ejection Fraction MOD 2C 59.7 % LV Cardiac Index MOD 2C 2113.1 cm???/min???m??? LV Diastolic Length 2C 8.1 cm LV Systolic Length 2C 5.9 cm LA Volume 42.2 cm??? 18 - 58 / 22 - 52 cm??? LA Volume Index 24.2 cm???/m??? 16 - 28 cm???/m??? Ascending Aorta Diameter 3.2 cm DOPPLER AV Peak Velocity 155.4 cm/s AV Peak Gradient 9.7 mmHg AV Mean Velocity 113.0 cm/s AV Mean Gradient 5.6 mmHg AV Velocity Time Integral 37.5 cm LVOT Peak Velocity 115.1 cm/s LVOT Peak Gradient 5.3 mmHg LVOT Velocity Time Integral 28.5 cm LVOT Stroke Volume 80.4 cm??? LVOT Stroke Volume Index 48.2 ml/m??? LVOT Cardiac Index 3316.6 cm???/min???m??? AV Area Cont Eq vti 2.1 cm??? AV Area Cont Eq pk 2.1 cm??? MV Peak Velocity 135.4 cm/s MV Peak Gradient 7.3 mmHg MV Mean Velocity 93.6 cm/s MV Mean Gradient 3.9 mmHg MV Velocity Time Integral 38.4 cm MV Area PHT 3.9 cm??? Mitral E Point Velocity 108.7 cm/s Mitral A Point Velocity 87.4 cm/s Mitral E to A Ratio 1.2 MV Deceleration Time 193.9 ms TR Peak Velocity 257.8 cm/s TR Peak Gradient 26.6 mmHg Right Atrial Pressure 5.0 mmHg Pulmonary Artery Systolic Pressu 31.6 mmHg Right Ventricular Systolic Press 31.6 mmHg PV Peak Velocity 80.1 cm/s PV Peak Gradient 2.6 mmHg FINDINGS Left Ventricle Left ventricular ejection fraction is estimated at 55-60 %. Mildly increased posterior wall thickness. Left ventricular cavity size normal. No obvious regional wall motion abnormalities. Right Ventricle Normal right ventricular size and function. Right ventricular systolic pressure within normal limits. Right Atrium Normal right atrial size. Left Atrium Normal left atrial size. Mitral Valve Structurally normal mitral valve. Mitral annular calcification. No evidence for mitral valve prolapse. Mild mitral stenosis. Trace mitral regurgitation. Aortic Valve Trileaflet aortic valve. No aortic valve stenosis or regurgitation. Tricuspid Valve Structurally normal tricuspid valve. No tricuspid stenosis. Mild tricuspid regurgitation. Pulmonic Valve Pulmonic valve not well visualized. No pulmonic stenosis. Trace pulmonic regurgitation. Pericardium No pericardial effusion. Aorta Normal size aortic root and proximal ascending aorta. CONCLUSIONS Normal LV systolic function Previewed by: Dr. Kumar Bronson MD (Electronically Signed) Final Date: 16 November 2024 10:34
--- NOTE | 2024-11-16 11:21 | P.CRDCN ---
History of Present Illness Consult date: 11/16/24 Reason for Consult (text): CHF, elevated troponins History of present illness: This is a 68-year-old female patient with past medical history of diabetes mellitus type I, hypertension, COPD, hypothyroidism, multiple sclerosis, pulmonary adenocarcinoma status post right-sided VATS with right lower lobectomy September 2023, small subsegmental right-sided pulmonary emboli 10/2023 history of tobacco use and dependence. We have been asked to evaluate the patient for CHF and elevated troponins. Patient was at her primary care office 2 days ago had a chest x-ray done at that time was told she had pneumonia and started on antibiotics. She was called yesterday due to an abnormal chest x-ray finding that it was most likely heart failure versus pneumonia and was sent into the emergency center. Patient is complaining of cough, congestion, fevers. No chest pain. She states that she has an appointment set up to see Dr. Yamileth Gonzalez in 11/23 for the first time. She denies having any previous history of known cardiac disease and has not had any cardiac surgeries. Patient states that she has been having cold symptoms as well as dizzy episodes lasting up to 5 seconds whenever she sat but not with standing. She has had chest pain on and off increased with exertion or with emotional stress. The pain comes and goes and it seems to be occurring more often. She also has radiation to the left arm and neck. She denies any lower extremity edema. She states she has Had weight gain with fluid retention in her abdomen. Blood pressure 111/59, heart rate 73, pulse ox 100% on 2 L nasal cannula. Patient is seen today in the emergency center waiting for bed on the cardiac stepdown unit. Patient has been started on IV Lasix 40 mg every 12 hours, IV antibiotics, heparin drip, IV Solu-Medrol and nebulizer treatments. Patient states that she is not feeling much better with the treatment this been started. Patient states that she has not been very active as she has an ankle fusion with chronic pain and also neck fusion and is supposed to have surgery on her lumbar area. -EKG: Sinus rhythm with low voltage, poor R wave progression, no acute ST changes. -Chest x-ray: No acute process. -CT brain: No acute intracranial hemorrhage or midline shift. Chronic small vessel ischemic changes. No acute process. -Laboratory studies: WBC 11.6, hemoglobin 10.7, sodium 134, potassium 5.5, BUN 36 creatinine 1.28. Troponin 0.169, 0.153, 0.148. -Home cardiac medications: Clonidine 0.3 mg at bedtime, losartan/hydrochlorothiazide 50-12.5 mg daily, also on levothyroxine -Echocardiogram performed on 10/2023 revealed normal LV systolic function. -Lexiscan Cardiolite stress test performed 09/15/2023 as an outpatient revealed inducible ischemia involving the moderate-sized area along the mid lateral wall. Review Of Systems: At the time of my exam: CONSTITUTIONAL: Denies fever or chills. HEENT: Denies blurred vision, vision changes, or eye pain. Denies hemoptysis CARDIOVASCULAR: Denies chest pain. Denies orthopnea. Denies PND. Denies p alpitations RESPIRATORY: Reports dyspnea on exertion shortness of breath. GASTROINTESTINAL: Denies abdominal pain. Denies nausea or vomiting. HEMATOLOGIC: Denies bleeding disorders. GENITOURINARY: Denies any blood in urine. SKIN: Denies puritis. Denies rash. Physical examination: Gen: This is a 67-year-old female in no acute distress VS: reviewed HEENT: Head is atraumatic, normocephalic. Pupils equal, round. Sclerae is anicteric. NECK: Supple. No JVD. LUNGS: Bilateral expiratory wheeze. No intercostal retractions. HEART: Regular rate and rhythm. No murmur. ABDOMEN: Soft No tenderness. EXTREMITIES: No pedal edema. No calf tenderness. NEUROLOGICAL: Patient is awake, alert and oriented x3. Assessment: Pneumonia, patient on antibiotics COPD exacerbation Possible NSTEMI with previously abnormal Lexiscan stress test History of adenocarcinoma of the lung Diabetes mellitus type 1 COPD Hypertension Hypothyroidism MS History of PE 10/2023 Tobacco use and dependence, patient quit 2 months ago Plan: Resume patient's home cardiac medications Start patient on aspirin and atorvastatin Hold beta-chase due to COPD Continue patient on IV Lasix 40 mg every 12 hours Continue heparin drip Monitor TOYA, daily weights, electrolytes and renal function Schedule patient for cardiac catheterization today with Dr. Harris Obtain 2-D echocardiogram and Doppler study to assess cardiac structure and function Further recommendations to follow based upon clinical course Thank you kindly for this consultation. Nurse practitioner note has been reviewed, I agree with documented findings and plan of care. Patient was seen and examined. 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 OA, efren in Rt ankle. Hx prob w/ cervical discs. Vaccinated for COVID 19 History of Any Multi-Drug Resistant Organisms: None Reported Past Surgical History: Adenoidectomy, Appendectomy, Tonsillectomy, Tubal Ligation Additional Past Surgical History / Comment(s): Laparoscopies. Pain procedures., cataract, neck fusion. right lower lobectomy. catarcat sx 4 days ago. cervical fusion. ankle fusion Past Anesthesia/Blood Transfusion Reactions: Motion Sickness Additional Past Anesthesia/Blood Transfusion Reaction / Comment(s): no blood transfusions Past Psychological History: Anxiety, Depression Smoking Status: Former smoker Past Alcohol Use History: None Reported Past Drug Use History: Marijuana - Past Family History Mother Family Medical History: Myocardial Infarction ([place]) Additional Family Medical History / Comment(s): Mother at age 48 from coronary artery disease. Patient does not have any brothers and sisters. She has one adult son with no major medical problems. Medications and Allergies Home Medications Medication Instructions Recorded Confirmed Type Montelukast [Singulair] 10 mg PO DAILY 07/28/22 11/15/24 History Albuterol Sulfate [Albuterol 2 puff INHALATION RT-Q6H PRN 09/27/23 11/15/24 History Sulfate Hfa] Gabapentin [Neurontin] 800 mg PO TID 10/26/23 11/15/24 History Ibuprofen [Motrin] 800 mg PO BID 10/26/23 11/15/24 History Insulin Aspart Prot/Insuln Asp See Protocol SQ BID 10/26/23 11/15/24 History [NovoLOG MIX 70-30 Flexpen] cloNIDine HCL [Catapres] 0.3 mg PO HS 10/26/23 11/15/24 History Benzonatate [Tessalon Perles] 100 mg PO TID PRN #20 cap 11/02/23 11/15/24 Rx Budesonide-Formot 160-4.5 Mcg 2 puff INHALATION RT-BID 30 Days 11/02/23 11/15/24 Rx [Symbicort 160-4.5 Mcg Inhaler] #1 each Insulin Glargine,Hum.rec.anlog 20 units SQ DAILY #0 11/02/23 11/15/24 Rx [Lantus Solostar Pen] Albuterol Nebulized [Ventolin 2.5 mg INHALATION RT-Q4H PRN 11/15/24 11/15/24 History Nebulized] Cyclobenzaprine [Flexeril] 10 mg PO TID PRN 11/15/24 11/15/24 History Doxycycline Hyclate 100 mg PO BID 11/15/24 11/15/24 History HYDROcodone/APAP 5-325MG [[place] 1 tab PO TID PRN 11/15/24 11/15/24 History 5-325] Insulin Aspart [NovoLOG Flexpen] See Protocol SQ ACHS 11/15/24 11/15/24 History Levothyroxine Sodium [Synthroid] 175 mcg PO DAILY 11/15/24 11/15/24 History Losartan-Hctz 50-12.5 mg [Hyzaar 1 tab PO DAILY 11/15/24 11/15/24 History 50-12.5] busPIRone HCL 15 mg PO BID PRN 11/15/24 11/15/24 History diphenhydrAMINE [Benadryl] 25 mg PO DAILY PRN 11/15/24 11/15/24 History predniSONE [Deltasone] 40 mg PO DAILY 11/15/24 11/15/24 History rOPINIRole HCL [Requip] 2 mg PO HS 11/15/24 11/15/24 History traMADol HCL 50 mg PO BID PRN 11/15/24 11/15/24 History Allergies Allergy/AdvReac Type Severity Reaction Status Date / Time erythromycin base AdvReac Nausea & Verified 11/15/24 20:11 Vomiting Physical Exam Vitals: Vital Signs Temp Pulse Resp BP Pulse Ox 11/16/24 07:04 97.8 F 73 18 111/59 100 11/16/24 04:40 54 L 18 111/72 98 11/16/24 02:40 54 L 82/53 100 11/16/24 01:40 78/48 11/16/24 01:20 55 L 24 71/38 100 11/16/24 00:40 61 18 77/42 96 11/16/24 00:09 76 18 74/43 97 11/15/24 20:45 86 149/79 99 11/15/24 20:13 88 11/15/24 19:55 86 11/15/24 18:35 98.7 F 93 20 160/69 99 Intake and Output 11/15/24 11/16/24 11/16/24 22:59 06:59 14:59 Other: Weight 69.853 kg Results 11/15/24 18:53 11/16/24 07:23 Cardiac Enzymes 11/15/24 11/15/24 11/15/24 Range/Units 18:53 18:53 21:52 AST 34 (14-36) U/L Troponin I 0.169 H* 0.153 H* (0.000-0.034) ng/mL 11/15/24 Range/Units 23:42 AST (14-36) U/L Troponin I 0.148 H* (0.000-0.034) ng/mL Coagulation 11/15/24 Range/Units 18:53 PT 10.2 (10.0-12.5) sec APTT 23.8 (22.0-30.0) sec CBC 11/15/24 Range/Units 18:53 WBC 11.6 H (3.8-10.6) k/uL RBC 3.32 L (3.80-5.40) m/uL Hgb 10.7 L (11.4-16.0) gm/dL Hct 32.3 L (34.0-46.0) % Plt Count 339 (150-450) k/uL Comprehensive Metabolic Panel 11/15/24 Range/Units 18:53 Sodium 134 L (137-145) mmol/L Potassium 5.5 H (3.5-5.1) mmol/L Chloride 103 (98-107) mmol/L Carbon Dioxide 20 L (22-30) mmol/L BUN 36 H (7-17) mg/dL Creatinine 1.28 H (0.52-1.04) mg/dL Glucose 194 H (74-99) mg/dL Calcium 9.5 (8.4-10.2) mg/dL AST 34 (14-36) U/L ALT 25 (4-34) U/L Alkaline Phosphatase 106 (38-126) U/L Total Protein 7.2 (6.3-8.2) g/dL Albumin 4.2 (3.5-5.0) g/dL Current Medications Generic Name Dose Route Start Last Admin Trade Name Freq PRN Reason Stop Dose Admin Hydrocodone Bitart/Acetaminophen 1 each 11/15/24 20:40 11/16/24 07:32 Hydrocodone/Apap 5-325mg 1 Each Tab PO 1 each TID PRN Administration pain Albuterol Sulfate 2.5 mg 11/15/24 19:51 Albuterol Nebulized 2.5 Mg/3 Ml INHALATION RT-QID PRN Shortness Of Breath Or Wheezing Budesonide/Formoterol Fumarate 2 puff 11/16/24 08:00 Symbicort 160-4.5 Mcg Inhaler INHALATION RT-BID MARIS Clonidine 0.3 mg 11/15/24 21:00 11/15/24 22:44 Clonidine Hcl 0.1 Mg Tab PO 0.3 mg HS MARIS Administration Cyclobenzaprine HCl 10 mg 11/15/24 20:40 Cyclobenzaprine 10 Mg Tab PO TID PRN Muscle Spasm Dextrose/Water 25 ml 11/15/24 20:44 Dextrose 50% Syringe 50 Ml IVP PER PROTOCOL PRN Hypoglycemia Protocol Dextrose/Water 50 ml 11/15/24 20:44 Dextrose 50% Syringe 50 Ml IVP PER PROTOCOL PRN Hypoglycemia Protocol Diphenhydramine HCl 25 mg 11/15/24 20:40 Diphenhydramine 25 Mg Cap PO DAILY PRN Allergy Symptoms Furosemide 40 mg 11/15/24 20:00 11/16/24 07:33 Furosemide 10 Mg/Ml 4 Ml Vial IV 40 mg Q12H MARIS Administration Gabapentin 800 mg 11/15/24 22:00 11/15/24 22:44 Gabapentin 400 Mg Cap PO 800 mg TID MARIS Administration Heparin Sodium (Porcine) 0 unit 11/15/24 19:58 Heparin Sodium 1,000 Un/Ml (10ml Vl) IV PER PROTOCOL PRN Low PTT Protocol Azithromycin 500 mg/ Sodium 250 mls @ 250 mls/hr 11/15/24 21:00 11/15/24 22:59 Chloride IVPB 11/17/24 21:59 250 mls/hr HS MARIS Administration Protocol Ceftriaxone Sodium 2 gm/ 50 mls @ 100 mls/hr 11/15/24 20:00 11/15/24 20:52 Sodium Chloride IVPB 100 mls/hr Q24H MARIS Administration Protocol Heparin Sodium/Sodium Chloride 250 mls @ 8.382 mls/hr 11/15/24 20:00 11/15/24 22:31 25,000 unit/ Sodium Chloride IV 12 units/kg/hr .Q24H MARIS 8.382 mls/hr Administration Protocol 12 UNITS/KG/HR Insulin Aspart 0 unit 11/15/24 21:00 11/16/24 07:34 Insulin Aspart (Novolog) 100 Unit/Ml Vial SQ 8 unit ACHS MARIS Administration Protocol Insulin Detemir 20 unit 11/16/24 07:00 11/16/24 07:34 Insulin Detemir (Levemir) 100 Unit/Ml Syr SQ 20 unit DAILY@0700 [facility] Administration Levothyroxine Sodium 176 mcg 11/16/24 06:30 11/16/24 07:32 Levothyroxine 88 Mcg Tab PO 176 mcg DAILY@0630 [facility] Administration Methylprednisolone Sodium Succinate 40 mg 11/15/24 20:42 11/16/24 07:33 Methylprednisolone Sod Succi 40 Mg/Ml 1 Ml Vial IV 40 mg Q8HR MARIS Administration Montelukast Sodium 10 mg 11/16/24 09:00 Montelukast 10 Mg Tab PO DAILY [facility] Ropinirole HCl 2 mg 11/15/24 21:00 11/15/24 22:45 Ropinirole Hcl 1 Mg Tab PO 2 mg HS MARIS Administration Tramadol HCl 50 mg 11/15/24 20:40 Tramadol 50 Mg Tab PO BID PRN Pain Intake and Output 11/15/24 11/16/24 11/16/24 22:59 06:59 14:59 Other: Weight 69.853 kg 11/15/24 18:53 11/15/24 18:53
[2024-11-16] MEDS: HEPARIN SODIUM,PORCINE 10,000 UNIT in SODIUM CHLORIDE 0.9% 1,000 ML IRRIGATION PRN (11:30)
[2024-11-16] MEDS: HEPARIN SODIUM,PORCINE (1 ML) 2,500 UNIT in SODIUM CHLORIDE 0.9% 250 ML IRRIGATION PRN (11:30)
[2024-11-16] MEDS: IV FLUID CONTINUATION 1,000 ML IV ONE (11:30)
[2024-11-16] MEDS: LIDOCAINE 1% INJ 10MG/ML (20 ML MDV) SQ ONE (11:32)
[2024-11-16] MEDS: MIDAZOLAM 2 MG/2 ML VIAL IVP ONE (11:35)
[2024-11-16] MEDS: VERAPAMIL SYRINGE (5 MG/10 ML) INTRAARTER ONE (11:37)
[2024-11-16] MEDS: PHENYLEPHRINE-0.9% NACL SYG 1,000 MCG/10 ML SYRINGE IVP ONE (11:43)
[2024-11-16] MEDS: HEPARIN SODIUM 1,000 UN/ML (10ML VL) IV ONE (11:50)
[2024-11-16] MEDS: TICAGRELOR 90 MG TAB PO ONE (11:58)
[2024-11-16] MEDS: fentaNYL (PF) 50 MCG/ML 2 ML AMP IVP ONE (12:05)
[2024-11-16] MEDS: NITROGLYCERIN 1000MCG/10ML SYRINGE INTRACORON ONE (12:44)
[2024-11-16] MEDS: IOPAMIDOL-370 100ML BTL INJ ONE (12:47)
[2024-11-16] MEDS ORDERED: RX INFO: IV CONTRAST WAS GIVEN 1 EACH MISC MISCELLANE PRN (12:55)
[2024-11-16] MEDS ORDERED: ATROPINE SULFATE 0.1 MG/ML 10ML SYRINGE IV PRN (12:55)
[2024-11-16] MEDS ORDERED: MAG HYDROX/AL HYDROX/SIMETH 30 ML CUP PO PRN (12:55)
--- NOTE | 2024-11-16 13:00 | P.PCN ---
Date of Procedure: 11/16/24 Operative Findings: CARDIAC CATHETERIZATION AND PERCUTANEOUS CORONARY INTERVENTION PERFORMING PHYSICIAN: Gustavo Harris MD, [facility] PROCEDURE PERFORMED: 1. Selective right and left coronary angiogram 2. Left heart catheterization 3. Successful stenting of OM1 using 2.25 x 18 mm Xience LACEY with an excellent angiographic results with adjunctive use of IVUS 4. Ultrasound-guided access of the right radial artery INDICATION: Acute non-ST elevation myocardial infarction COMPLICATION: None APPROACH: Right radial artery LEVEL OF SEDATION: Moderate with the sedation time off 74 minutes PROCEDURE DESCRIPTION: After signing informed consent the patient was brought to the cardiac Environmental Field Technician with right radial artery was cannulated using micropuncture technique under ultrasound guidance a micropuncture wire passed easily then I placed a 6 Amharic 11 cm sheath at the right radial artery. After that I gave the patient 2 mg of verapamil intra-arterial and additional heparin was given throughout the procedure with continuous ACT monitoring. Subsequently selective right and left coronary angiogram using JR4 and JL 3.5 catheter and left heart catheterization using 6 Amharic pigtail catheter with after that I decided to intervene on the OM1. Anticoagulation was initiated using heparin with continuous ACT monitoring. Subsequently I did engage the left main using JL 3.5 guiding catheter. I did wired the left circumflex using a run-through wire and OM1 using a whisper wire. Attempting advancing 1.5 mm balloon was unsuccessful because the lesion was extremely calcified and tight. I was able to advance 1 mm balloon and did balloon angioplasty using 1 mm balloon but subsequently I was able to advance 1.5 mm balloon and then 1.75 mm balloon and subsequently 2 mm noncompliant balloon. After that I advanced 2.25 x 18 mm stent where the stent was positioned under fluoroscopy guidance and deployed under fluoroscopy guidance. Before the stent was deployed I did IVUS and that showed a diameter around 2.25 mm calcified vessel. The procedure was completed with no complication SELECTIVE CORONARY ANGIOGRAM: The right coronary artery: Medium caliber vessel nondominant vessel Left main: Appears to be angiographically normal The left circumflex: Large-caliber vessel and a dominant vessel with subtotally occluded OM1. Distally the LCx gives rise into PDA and PLV branches The left anterior descending artery: Large caliber vessel with intermediate lesion involving the midportion appears to be in the range of 50% and appears to be hazy as well HEMODYNAMICS: The LVEDP was about 12 mmHg with no significant gradient across aortic valve CONCLUSION: Subtotally occluded OM1. I did perform PCI of OM1 Intermediate disease involving the mid LAD with hazy/calcified lesion Normal left-sided filling pressure POSTPROCEDURE MANAGEMENT: 1. Dual antiplatelet therapy using aspirin and Brilinta for at least 12 month 2. Aggressive cholesterol control 3. Follow-up with the patient
[2024-11-16] MEDS: SODIUM CHLORIDE 0.9% 1,000 ML in EMPTY BAG 1 BAG IV SCH (13:07)
[2024-11-16 13:09] LABS: Glucose,Whole Blood 469 mg/dL (70-110)
[2024-11-16 13:11] LABS: Glucose,Whole Blood 430 mg/dL (70-110)
[2024-11-16] MEDS: traMADol 50 MG TAB PO PRN (13:15)
[2024-11-16] MEDS ORDERED: DEXTROSE 50% SYRINGE 50 ML IVP PRN ×4 (13:26→19:51)
[2024-11-16] MEDS: SODIUM ZIRCONIUM CYCLOSILICATE 10 GM PACKET PO SCH (13:40)
[2024-11-16 14:27] LABS: Glucose,Whole Blood 419 mg/dL (70-110)
[2024-11-16] MEDS: INSULIN REGULAR 100 UNIT in SODIUM CHLORIDE 0.9% 100 ML IV SCH (14:27)
[2024-11-16 15:30] LABS: Glucose,Whole Blood 342 mg/dL (70-110)
[2024-11-16] MEDS: IPRATROPIUM-ALBUTEROL 3 ML NEB INHALATION SCH (15:55)
[2024-11-16 16:30] LABS: Glucose,Whole Blood 309 mg/dL (70-110)
[2024-11-16 17:35] LABS: Glucose,Whole Blood 199 mg/dL (70-110)
[2024-11-16] MEDS: BENZOCAINE/MENTHOL LOZENG 1 EACH LOZENGE MUCOUS MEM PRN (17:51)
--- NOTE | 2024-11-16 17:59 | P.HPIM ---
History of Present Illness H&P Date: 11/16/24 Chief Complaint: Short of breath This is a pleasant 59-year-old patient, follows with Dr. Ryan Pino. Extensive medical history to include COPD, diabetes, hypertension, osteoarthritis, hypothyroid, previous seizure disorder from hypoglycemia, multiple sclerosis, diabetic peripheral neuropathy, optic neuritis, restless leg syndrome anxiety depression. Right lower lobe lobectomy for localized adenocarcinoma in September 2023. Patient now presents with over 10 days of significant cough shortness of breath. [place] febrile. Poor appetite. A bowel movement probably every 3 days. Patient has chronic whole body pain and low back pain due for spinal surgery. Also for close to few weeks patient having chest pain. Specially with activity. Prog ressively getting worse. Patient is roommate Aubree and children at the bedside. Review of systems: GEN.: Tired EYES: None HEENT: None NECK: None RESPIRATORY: [As above CARDIOVASCULAR: As above GASTROINTESTINAL: None GENITOURINARY: None MUSCULOSKELETAL: As above LYMPHATICS: None HEMATOLOGICAL: None PSYCHIATRY: None NEUROLOGICAL: Bit anxious Past medical history to include: COPD, diabetes, GERD, osteoarthritis, seizure disorder, hypothyroid, multiple sclerosis, diabetic peripheral neuropathy, optic neuritis, decreased vision in the eyes,;, restless leg syndrome, colon polyps, anxiety depression Social history: started smoking in 1978. Half a pack a day. More so in the past. Smoking about less than half a pack a day.. She was drinking heavy alcohol up to about 2016. Has a roommate Aubree. Occasionally does marijuana. Does use a cane Physical examination: VITAL SIGNS: 98.1, 91, 20, 112 x 72, 96% room air GENERAL: BMI 30.1, reclining bed awake a bit tired a bit short of breath EYES: Pupils equal. Conjunctiva normal. HEENT: External appearance of nose and ears normal, oral cavity grossly normal. NECK: JVD not raised; masses not palpable. HEART: First and second heart sounds are normal; no edema. LUNGS: Respiratory rate increased; diminished breath sounds, prolonged expi ration wheezing ABDOMEN: Soft, nontender, liver spleen not palpable, no masses palpable. PSYCH: [Alert and oriented x3; mood and affect anxious LYMPHATICS: No lymph nodes palpable neck and axilla NEUROLOGICAL: Cranial nerves grossly intact. Poor sensation grossly intact INVESTIGATIONS, reviewed in the clinical context: 2D echocardiogram: EF 55 to 60%. November 16: Sodium 132 potassium 5.8 BUN 42 creatinine 1.42 glucose 330 November 15: White count 9.6 hemoglobin 10.7 platelets 339 sodium 134 potassium 5.5 BUN 36 creatinine 1.28 Troponin I 0.169, 0.153, 0.148 EKG tracing personally reviewed by me-normal sinus rhythm. Chest x-ray film personally reviewed by me-right pleural thickening/effusion. Lungs clear CT brain: Diffuse age-related atrophy Assessment and plan: -Acute non-ST elevation myocardial infarction Successful angioplasty stent to OM1 by Dr. Harris Aspirin. IV heparin. Brilinta -History of adeno carcinoma of the right lower lobe. Right lower lobe lobectomy September 2023 -Acute COPD exacerbation in a smoker DuoNeb 4 times daily. Symbicort. IV Solu-Medrol. -Chronic nicotine dependence Nicotine patch -No evidence of pneumonia Stop antibiotics -Chronic arthritis multiple joints specially lumbar spine. Due for surgery. Ultram 50 mg twice daily. Neurontin. Flexeril as needed. -Diabetes mellitus type 2, chronically on insulin. . Uncontrolled with hyp erglycemia. Accu-Cheks 430 this afternoon Insulin drip. -Diabetic peripheral neuropathy Neurontin 800 mg 3 times daily -Hypothyroid Synthroid 176 mcg -GERD Pepcid -Restless leg syndrome requip 2 mg every daily at bedtime -Anxiety depression BuSpar -Full code Care was discussed with patient family at the bedside. K-pad added for back pain. Follow-up with cardiology. 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 OA, efren in Rt ankle. Hx prob w/ cervical discs. Vaccinated for COVID 19 History of Any Multi-Drug Resistant Organisms: None Reported Past Surgical History: Adenoidectomy, Appendectomy, Tonsillectomy, Tubal Ligation Additional Past Surgical History / Comment(s): Laparoscopies. Pain procedures., cataract, neck fusion. right lower lobectomy. catarcat sx 4 days ago. cervical fusion. ankle fusion Past Anesthesia/Blood Transfusion Reactions: Motion Sickness Additional Past Anesthesia/Blood Transfusion Reaction / Comment(s): no blood transfusions Past Psychological History: Anxiety, Depression Smoking Status: Former smoker Past Alcohol Use History: None Reported Past Drug Use History: Marijuana - Past Family History Mother Family Medical History: Myocardial Infarction ([place]) Additional Family Medical History / Comment(s): Mother at age 48 from coronary artery disease. Patient does not have any brothers and sisters. She has one adult son with no major medical problems. Medications and Allergies Home Medications Medication Instructions Recorded Confirmed Type Montelukast [Singulair] 10 mg PO DAILY 07/28/22 11/15/24 History Albuterol Sulfate [Albuterol 2 puff INHALATION RT-Q6H PRN 09/27/23 11/15/24 History Sulfate Hfa] Gabapentin [Neurontin] 800 mg PO TID 10/26/23 11/15/24 History Ibuprofen [Motrin] 800 mg PO BID 10/26/23 11/15/24 History Insulin Aspart Prot/Insuln Asp See Protocol SQ BID 10/26/23 11/15/24 History [NovoLOG MIX 70-30 Flexpen] cloNIDine HCL [Catapres] 0.3 mg PO HS 10/26/23 11/15/24 History Benzonatate [Tessalon Perles] 100 mg PO TID PRN #20 cap 11/02/23 11/15/24 Rx Budesonide-Formot 160-4.5 Mcg 2 puff INHALATION RT-BID 30 Days 11/02/23 11/15/24 Rx [Symbicort 160-4.5 Mcg Inhaler] #1 each Insulin Glargine,Hum.rec.anlog 20 units SQ DAILY #0 11/02/23 11/15/24 Rx [Lantus Solostar Pen] Albuterol Nebulized [Ventolin 2.5 mg INHALATION RT-Q4H PRN 11/15/24 11/15/24 History Nebulized] Cyclobenzaprine [Flexeril] 10 mg PO TID PRN 11/15/24 11/15/24 History Doxycycline Hyclate 100 mg PO BID 11/15/24 11/15/24 History HYDROcodone/APAP 5-325MG [[place] 1 tab PO TID PRN 11/15/24 11/15/24 History 5-325] Insulin Aspart [NovoLOG Flexpen] See Protocol SQ ACHS 11/15/24 11/15/24 History Levothyroxine Sodium [Synthroid] 175 mcg PO DAILY 11/15/24 11/15/24 History Losartan-Hctz 50-12.5 mg [Hyzaar 1 tab PO DAILY 11/15/24 11/15/24 History 50-12.5] busPIRone HCL 15 mg PO BID PRN 11/15/24 11/15/24 History diphenhydrAMINE [Benadryl] 25 mg PO DAILY PRN 11/15/24 11/15/24 History predniSONE [Deltasone] 40 mg PO DAILY 11/15/24 11/15/24 History rOPINIRole HCL [Requip] 2 mg PO HS 11/15/24 11/15/24 History traMADol HCL 50 mg PO BID PRN 11/15/24 11/15/24 History Allergies Allergy/AdvReac Type Severity Reaction Status Date / Time erythromycin base AdvReac Nausea & Verified 11/15/24 20:11 Vomiting Physical Exam Vitals: Vital Signs Temp Pulse Pulse Resp BP BP Pulse Ox 11/16/24 09:23 98.1 F 91 20 112/72 96 11/16/24 09:12 98 F 96 18 107/70 99 11/16/24 08:26 79 11/16/24 08:18 99 11/16/24 08:14 78 11/16/24 07:04 97.8 F 73 18 111/59 100 11/16/24 04:40 54 L 18 111/72 98 11/16/24 02:40 54 L 82/53 100 11/16/24 01:40 78/48 11/16/24 01:20 55 L 24 71/38 100 11/16/24 00:40 61 18 77/42 96 11/16/24 00:09 76 18 74/43 97 11/15/24 20:45 86 149/79 99 11/15/24 20:13 88 11/15/24 19:55 86 11/15/24 18:35 98.7 F 93 20 160/69 99 Intake and Output 11/15/24 11/16/24 11/16/24 22:59 06:59 14:59 Other: Voiding Method Toilet External Catheter Weight 69.853 kg 69.853 kg Results CBC & Chem 7: 11/15/24 18:53 11/16/24 07:23 Labs: Abnormal Lab Results - Last 24 Hours (Table) 11/15/24 11/15/24 11/15/24 Range/Units 18:53 18:53 18:53 WBC 11.6 H (3.8-10.6) k/uL RBC 3.32 L (3.80-5.40) m/uL Hgb 10.7 L (11.4-16.0) gm/dL Hct 32.3 L (34.0-46.0) % Neutrophils # 10.7 H (1.3-7.7) k/uL Lymphocytes # 0.7 L (1.0-4.8) k/uL APTT (22.0-30.0) sec Sodium 134 L (137-145) mmol/L Potassium 5.5 H (3.5-5.1) mmol/L Carbon Dioxide 20 L (22-30) mmol/L BUN 36 H (7-17) mg/dL Creatinine 1.28 H (0.52-1.04) mg/dL Glucose 194 H (74-99) mg/dL POC Glucose (mg/dL) (70-110) mg/dL Troponin I 0.169 H* (0.000-0.034) ng/mL 11/15/24 11/15/24 11/16/24 Range/Units 21:52 23:42 03:55 WBC (3.8-10.6) k/uL RBC (3.80-5.40) m/uL Hgb (11.4-16.0) gm/dL Hct (34.0-46.0) % Neutrophils # (1.3-7.7) k/uL Lymphocytes # (1.0-4.8) k/uL APTT (22.0-30.0) sec Sodium (137-145) mmol/L Potassium (3.5-5.1) mmol/L Carbon Dioxide (22-30) mmol/L BUN (7-17) mg/dL Creatinine (0.52-1.04) mg/dL Glucose (74-99) mg/dL POC Glucose (mg/dL) 191 H (70-110) mg/dL Troponin I 0.153 H* 0.148 H* (0.000-0.034) ng/mL 11/16/24 11/16/24 11/16/24 Range/Units 07:15 07:23 07:23 WBC (3.8-10.6) k/uL RBC (3.80-5.40) m/uL Hgb (11.4-16.0) gm/dL Hct (34.0-46.0) % Neutrophils # (1.3-7.7) k/uL Lymphocytes # (1.0-4.8) k/uL APTT 51.0 H (22.0-30.0) sec Sodium 132 L (137-145) mmol/L Potassium 5.8 H (3.5-5.1) mmol/L Carbon Dioxide 21 L (22-30) mmol/L BUN 42 H (7-17) mg/dL Creatinine 1.42 H (0.52-1.04) mg/dL Glucose 330 H (74-99) mg/dL POC Glucose (mg/dL) 332 H (70-110) mg/dL Troponin I (0.000-0.034) ng/mL Thrombosis Risk Factor Assmnt - Choose All That Apply Any of the Below Risk Factors Present?: Yes Each Factor Represents 1 point: Abnormal pulmonary function (COPD), Age 41-60 years, Obesity (BMI >25) Other Risk Factors: No Other congenital or acquired thrombophilia - If yes, enter type in comment: No Thrombosis Risk Factor Assessment Total Risk Factor Score: 3 Thrombosis Risk Factor Assessment Level: Moderate Risk
[2024-11-16] MEDS: NICOTINE 14MG/24HR PATCH TRANSDERM SCH (18:27)
[2024-11-16 18:30] LABS: Glucose,Whole Blood 123 mg/dL (70-110)
[2024-11-16 19:38] LABS: Glucose,Whole Blood 100 mg/dL (70-110)
[2024-11-16 20:56] LABS: Glucose,Whole Blood 185 mg/dL (70-110)
[2024-11-16] MEDS: INSULIN ASPART (NovoLOG) 100 UNIT/ML VIAL SQ SCH (21:00)
[2024-11-16] MEDS: TICAGRELOR 90 MG TAB PO SCH (21:01)
[2024-11-17 00:38] LABS: Glucose,Whole Blood 165 mg/dL (70-110)
--- NOTE | 2024-11-17 02:54 | P.CNPUL ---
History of Present Illness Consult date: 11/17/24 Requesting physician: Azeem Keen Reason for consult: COPD Chief complaint: shortness of breath History of present illness: Patient is a 59-year-old female with past medical history significant for lung cancer, pulmonary adenocarcinoma type status post right lower lobectomy; COPD; f ormer tobacco dependence; pulmonary embolism, not currently on anticoagulation; diabetes mellitus type 1; hypothyroidism; MS. PCP is Dr. Pino. Recent chest CT done outpatient showing postsurgical changes of partial right lower lobectomy, previously seen spiculated 2.1 cm mass with cavitation in the right lower lobe nearly completely resolved. There was a small 7.5 mm residual nodule. New 5.4 mm nodule in the posterior right upper lobe. No lymphadenopathy. Disease recurrence cannot be excluded. Plan is for short term follow up. Of note, patient recently treated outpatient for COPD exacerbation/pneumonia by her PCP. URI symptoms started approximately two weeks ago, progressively worsening shortness of breath. chest congestion, and nonproductive cough . Sent in for evaluation by her primary care provider. Admits intermittent exertional substernal chest pain over last couple months. First noticed when painting her house. Usually subsides with rest. No associated nausea, diaphoresis. Associated dizziness. Denies: syncope, palpitations, orthopnea, lower extremity swelling. Weight gain of 9lbs over last 2-3 days. Did have elevated serial troponins on arrival. Diagnosed with non-ST elevation OK. Went for heart catheterization yesterday, had PCI/stenting to the OM1. Echocardiogram estimating a preserved left ventricular ejection fraction of 55 to 60%. No obvious regional wall abnormalities. Most recent CBC from 11/15: WBC count 11.6, hemoglobin 10.7, hematocrit 32.3, platelets 339. Most recent BMP from yesterday has a sodium of 132, potassium 5.8, chloride 105, serum bicarb 21, BUN 42, creatinine 1.42, glucose 330. Troponins elevated at 0.17, 0.15, and 0.15 respectively. NT proBNP 4210. Chest x-ray shows some possible mild vascular congestion, chronic elevated right hemidiaphragm and postsurgical changes. Current vitals: Temperature 98.1 F, heart rate 90 bpm, blood pressure 111/65 mmHg, SpO2 97% on room air. We were consulted yesterday for management of the patient's COPD. Patient is currently resting comfortably on room air oxygen. She is in no respiratory distress. Faint expiratory wheezes on auscultation. She has already been started on a combination of DuoNebs, Symbicort inhaler, and IV Solu-Medrol. Review of Systems Constitutional: Reports fatigue, Reports weight gain, Denies chills, Denies fever, Denies poor appetite, Denies weight loss Ears, nose, mouth and throat: Reports headache, Reports nasal congestion, Reports nasal discharge, Reports post-nasal drip, Reports sore throat, Denies sinus pain, Denies sinus pressure Cardiovascular: Reports chest pain, Reports dyspnea on exertion, Denies leg edema, Denies orthopnea, Denies palpitations, Denies paroxysmal nocturnal dyspnea, Denies syncope Respiratory: Reports congestion, Reports cough, Reports dyspnea, Reports wheezing, Denies cough with sputum, Denies home oxygen Gastrointestinal: Reports nausea, Denies abdominal pain, Denies diarrhea, Denies vomiting Genitourinary: Reports stress incontinence, Denies dysuria, Denies flank pain, Denies hematuria Musculoskeletal: Denies limitation of motion Integumentary: Denies sores Neurological: Denies seizures, Denies syncope Psychiatric: Reports anxiety, Reports depression, Denies suicidal ideation Past Medical History Past Medical History: COPD, Diabetes Mellitus, Eye Disorder, Hypertension, Musculoskeletal Disorder, Osteoarthritis (OA), Thyroid Disorder Additional Past Medical History / Comment(s): COPD, diabetes, GERD, osteoarthritis, seizure disorder secondary to hypoglycemia , hypothyroid, multiple sclerosis, diabetic peripheral neuropathy, optic neuritis, decreased vision in the eyes,; this problem, restless leg syndrome, colon polyps, anxiety depression. OA, efren in Rt ankle. Hx prob w/ cervical discs. Vaccinated for COVID 19 History of Any Multi-Drug Resistant Organisms: None Reported Past Surgical History: Adenoidectomy, Appendectomy, Tonsillectomy, Tubal Ligation Additional Past Surgical History / Comment(s): Laparoscopies. Pain procedures., cataract, neck fusion. right lower lobectomy. catarcat sx 4 days ago. cervical fusion. ankle fusion Past Anesthesia/Blood Transfusion Reactions: Motion Sickness Additional Past Anesthesia/Blood Transfusion Reaction / Comment(s): no blood transfusions Past Psychological History: Anxiety, Depression Smoking Status: Former smoker Past Alcohol Use History: None Reported Past Drug Use History: Marijuana - Past Family History Mother Family Medical History: Myocardial Infarction ([place]) Additional Family Medical History / Comment(s): Mother at age 48 from coronary artery disease. Patient does not have any brothers and sisters. She has one adult son with no major medical problems. Medications and Allergies Home Medications Medication Instructions Recorded Confirmed Type Montelukast [Singulair] 10 mg PO DAILY 07/28/22 11/15/24 History Albuterol Sulfate [Albuterol 2 puff INHALATION RT-Q6H PRN 09/27/23 11/15/24 History Sulfate Hfa] Gabapentin [Neurontin] 800 mg PO TID 10/26/23 11/15/24 History Ibuprofen [Motrin] 800 mg PO BID 10/26/23 11/15/24 History Insulin Aspart Prot/Insuln Asp See Protocol SQ BID 10/26/23 11/15/24 History [NovoLOG MIX 70-30 Flexpen] cloNIDine HCL [Catapres] 0.3 mg PO HS 10/26/23 11/15/24 History Benzonatate [Tessalon Perles] 100 mg PO TID PRN #20 cap 11/02/23 11/15/24 Rx Budesonide-Formot 160-4.5 Mcg 2 puff INHALATION RT-BID 30 Days 11/02/23 11/15/24 Rx [Symbicort 160-4.5 Mcg Inhaler] #1 each Insulin Glargine,Hum.rec.anlog 20 units SQ DAILY #0 11/02/23 11/15/24 Rx [Lantus Solostar Pen] Albuterol Nebulized [Ventolin 2.5 mg INHALATION RT-Q4H PRN 11/15/24 11/15/24 History Nebulized] Cyclobenzaprine [Flexeril] 10 mg PO TID PRN 11/15/24 11/15/24 History Doxycycline Hyclate 100 mg PO BID 11/15/24 11/15/24 History HYDROcodone/APAP 5-325MG [[place] 1 tab PO TID PRN 11/15/24 11/15/24 History 5-325] Insulin Aspart [NovoLOG Flexpen] See Protocol SQ ACHS 11/15/24 11/15/24 History Levothyroxine Sodium [Synthroid] 175 mcg PO DAILY 11/15/24 11/15/24 History Losartan-Hctz 50-12.5 mg [Hyzaar 1 tab PO DAILY 11/15/24 11/15/24 History 50-12.5] busPIRone HCL 15 mg PO BID PRN 11/15/24 11/15/24 History diphenhydrAMINE [Benadryl] 25 mg PO DAILY PRN 11/15/24 11/15/24 History predniSONE [Deltasone] 40 mg PO DAILY 11/15/24 11/15/24 History rOPINIRole HCL [Requip] 2 mg PO HS 11/15/24 11/15/24 History traMADol HCL 50 mg PO BID PRN 11/15/24 11/15/24 History Allergies Allergy/AdvReac Type Severity Reaction Status Date / Time erythromycin base AdvReac Nausea & Verified 11/15/24 20:11 Vomiting Physical Exam Vitals: Vital Signs Temp Pulse Pulse Resp BP BP Pulse Ox 11/16/24 23:26 98.1 F 87 20 111/65 97 11/16/24 21:57 92 11/16/24 21:46 90 11/16/24 20:00 98.7 F 90 18 105/69 97 11/16/24 17:41 91 121/66 11/16/24 17:09 96 95/60 11/16/24 16:40 92 102/55 11/16/24 16:10 88 11/16/24 15:56 86 11/16/24 15:40 98.0 F 89 16 109/64 98 11/16/24 14:40 94 16 117/52 99 11/16/24 14:10 85 20 118/71 97 11/16/24 13:47 88 11/16/24 13:40 88 20 121/61 100 11/16/24 13:25 87 20 115/61 97 11/16/24 13:10 88 20 124/76 97 11/16/24 13:01 91 20 129/66 99 11/16/24 11:00 93 20 151/75 100 11/16/24 09:23 98.1 F 91 20 112/72 96 11/16/24 09:12 98 F 96 18 107/70 99 11/16/24 08:26 79 11/16/24 08:18 99 11/16/24 08:14 78 11/16/24 07:04 97.8 F 73 18 111/59 100 11/16/24 04:40 54 L 18 111/72 98 11/16/24 02:40 54 L 82/53 100 11/16/24 01:40 78/48 11/16/24 01:20 55 L 24 71/38 100 Intake and Output 11/16/24 11/16/24 11/17/24 14:59 22:59 06:59 Intake Total 354.635 149.837 Output Total 900 Balance 354.635 -750.163 Intake: IV 250 Intake, IV Titration 104.635 29.837 Amount Heparin Sod,Pork in 0.45% 104.635 NaCl 25,000 unit In 0.45 % NaCl 1 250ml.bag @ 12 UNITS/KG/HR 8.382 mls/hr IV .Q24H [facility] Rx#: [id number] Insulin Regular 100 unit 29.837 In Sodium Chloride 0.9% 100 ml @ Titrate IV .Q0M [facility] Rx#:[id number] Oral 120 Output: Urine 900 Other: Voiding Method Toilet External Catheter External Catheter Weight 69.853 kg GENERAL EXAM: Alert, 59-year-old white female, comfortable in no apparent distress. HEAD: Normocephalic and atraumatic EYES: Normal reaction of pupils, equal size. NOSE: Clear with pink turbinates. THROAT: No erythema or exudates. NECK: No masses, no JVD. CHEST: No chest wall deformity. LUNGS: Equal air entry with faint expiratory wheezes. On room air. No conversational dyspnea or accessory muscle use.. CVS: S1 and S2 normal with no audible murmur, regular rhythm. No extra heart sounds ABDOMEN: No hepatosplenomegaly, active bowel sounds, no guarding or rigidity. SPINE: No scoliosis or deformity SKIN: No rashes CENTRAL NERVOUS SYSTEM: No focal deficits, tone is normal in all 4 extremities. EXTREMITIES: There is no peripheral edema, clubbing, or cyanosis. Peripheral pulses are intact. Right TR band right wrist TR band, deflated. No hematoma Results - Laboratory Findings CBC and BMP: 11/15/24 18:53 11/17/24 08:46 PT/INR, D-dimer PT 10.2 sec (10.0-12.5) 11/15/24 18:53 INR 0.9 (<1.2) 11/15/24 18:53 Abnormal lab findings: Abnormal Labs 11/15/24 11/15/24 11/15/24 18:53 18:53 18:53 WBC 11.6 H RBC 3.32 L Hgb 10.7 L Hct 32.3 L Neutrophils # 10.7 H Lymphocytes # 0.7 L APTT Sodium 134 L Potassium 5.5 H Carbon Dioxide 20 L BUN 36 H Creatinine 1.28 H Glucose 194 H POC Glucose (mg/dL) Hemoglobin A1c Troponin I 0.169 H* 11/15/24 11/15/24 11/16/24 21:52 23:42 03:55 WBC RBC Hgb Hct Neutrophils # Lymphocytes # APTT Sodium Potassium Carbon Dioxide BUN Creatinine Glucose POC Glucose (mg/dL) 191 H Hemoglobin A1c Troponin I 0.153 H* 0.148 H* 11/16/24 11/16/24 11/16/24 07:15 07:23 07:23 WBC RBC Hgb Hct Neutrophils # Lymphocytes # APTT 51.0 H Sodium 132 L Potassium 5.8 H Carbon Dioxide 21 L BUN 42 H Creatinine 1.42 H Glucose 330 H POC Glucose (mg/dL) 332 H Hemoglobin A1c Troponin I 11/16/24 11/16/24 11/16/24 07:23 13:08 13:09 WBC RBC Hgb Hct Neutrophils # Lymphocytes # APTT Sodium Potassium Carbon Dioxide BUN Creatinine Glucose POC Glucose (mg/dL) 469 H 430 H Hemoglobin A1c 7.7 H Troponin I 11/16/24 11/16/24 11/16/24 14:26 15:28 16:29 WBC RBC Hgb Hct Neutrophils # Lymphocytes # APTT Sodium Potassium Carbon Dioxide BUN Creatinine Glucose POC Glucose (mg/dL) 419 H 342 H 309 H Hemoglobin A1c Troponin I 11/16/24 11/16/24 11/16/24 17:33 18:29 20:55 WBC RBC Hgb Hct Neutrophils # Lymphocytes # APTT Sodium Potassium Carbon Dioxide BUN Creatinine Glucose POC Glucose (mg/dL) 199 H 123 H 185 H Hemoglobin A1c Troponin I 11/17/24 00:37 WBC RBC Hgb Hct Neutrophils # Lymphocytes # APTT Sodium Potassium Carbon Dioxide BUN Creatinine Glucose POC Glucose (mg/dL) 165 H Hemoglobin A1c Troponin I - Diagnostic Findings Chest x-ray: image reviewed Assessment and Plan Assessment: Acute COPD exacerbation Non-ST elevation OK, status post heart catheterization done 11/16/2024, patient did receive PCI/stenting of the OM1. Acute dyspnea, secondary to above History of pulmonary adenocarcinoma, status post right sided video-assisted thorascopic surgery and right lower lobectomy on 09/29/2023. Recent chest CT done outpatient 09/18/2024 showing postsurgical changes of partial right lower lobectomy, previously seen spiculated 2.1 cm mass with cavitation in the right lower lobe nearly completely resolved. There was a small 7.5 mm residual nodule. New 5.4 mm nodule in the posterior right upper lobe. Disease recurrence cannot be excluded. Recommendation was for short-term follow-up given patient's history Former tobacco dependence, quitting 1 month ago History of pulmonary embolism, not currently on anticoagulation Diabetes mellitus type 1 Acute kidney injury, creatinine up to 1.42 Hyperkalemia, currently receiving Lokelma Anemia of chronic disease History of hypothyroidism History of multiple sclerosis Chronic lumbar back pain and moderate multilevel degeneration with for moderate to severe spinal canal stenosis at L3-L5 Obesity, with a BMI of 30.1 kg/m History of anxiety/depression Plan: Patient's medications, labs, chest x-ray reviewed Chest x-ray shows mild pulmonary vascular congestion, chronic elevated right hemidiaphragm and postsurgical changes. No focal consolidations or pneumonia. On room air oxygen Continue combination of bronchodilators, Symbicort inhaler, and IV Solu-Medrol Receiving Lasix 40 mg twice daily Continues with dual antiplatelet medication in the form of aspirin and Brilinta. Continues on statin Follow-up echocardiogram showing a preserved left ventricular ejection fraction of 55 to 60% without regional wall abnormalities. Will continue to follow I have personally seen and examined the patient, performed the documentation and the assessment and plan as written. Number of minutes spent on the visit:20 On 11/17/2024, patient is being seen in joint evaluation along with the nurse practitioner.. In summary, the patient is coming in with worsening shortness of breath and the presentation is typical for an acute COPD exacerbation. She has a previous history of pulm embolism and the patient remains on anticoagulation with with Eliquis. She also has lung cancer, pulmonary adenocarcinoma and the patient is currently on Opdivo. Most recent PET/CT shows residual disease involving the right lung. There is significant volume loss and chronic right- sided pleural effusion and uptake along the pleural margins on the right. She is under the care of hematology oncology. The most recent CAT scan of the chest was done on 09/18/2024 showing postsurgical changes along with several smaller pulmonary nodules involving the right lung consistent with residual disease. The patient has other comorbidities including diabetes mellitus type 2, anemia of chronic disease, hypothyroidism and multiple sclerosis. She has chronic anxiety and depression. I reviewed the chest x-ray from this current admission and the left lung is essentially clear. There is chronic elevation of the right hemidiaphragm and volume loss on the right consistent with her previous history of lung cancer. She is currently on bronchodilators patient was also started on IV Solu-Medrol 60 mg every 6 hours. No significant sputum production. Home medications have been resumed. The patient has no significant leukocytosis. She has developed an acute kidney injury and the creatinine is at 1.4 and the patient is receiving IV fluids. Oxygenation is stable and the patient is currently on room 2 L of oxygen with a pulse ox of 99%. Will continue the current treatment for now. Optimize COPD. Smoking cessation counseling was done. Given nicotine patch. Continue anticoagulation with Eliquis. Will continue to follow. Time with Patient: Greater than 30
[2024-11-17 06:29] LABS: Glucose,Whole Blood 136 mg/dL (70-110)
[2024-11-17] MEDS: PANTOPRAZOLE 40 MG TABLET PO SCH (06:32)
[2024-11-17] MEDS: ASPIRIN 81 MG PO SCH (08:25)
[2024-11-17 09:50] LABS: African American GFR (CKD) 47 (>60 ml/min/1.73 sqM); Anion Gap 6 mmol/L; Blood Urea Nitrogen 44 mg/dL (7-17); Calcium 9.3 mg/dL (8.4-10.2); Carbon Dioxide 27 mmol/L (22-30); Chloride 101 mmol/L (98-107); Glucose 151 mg/dL (74-99); Non-African American GFR(CKD) 41 (>60 ml/min/1.73 sqM); Potassium 4.4 mmol/L (3.5-5.1); Sodium 134 mmol/L (137-145)
[2024-11-17 10:55] LABS: Glucose,Whole Blood 250 mg/dL (70-110)
[2024-11-17 10:59] LABS: Glucose,Whole Blood 216 mg/dL (70-110)
[2024-11-17 11:34] LABS: Glucose,Whole Blood 226 mg/dL (70-110)
--- NOTE | 2024-11-17 11:55 | P.NPCON ---
History of Present Illness - Reason for Consult acute renal failure - History of Present Illness Reason for consultation: Acute kidney injury History of present illness: Patient is a 59-year-old female seen in renal consultation for acute kidney injury. Patient baseline creatinine is near 1 and was up to 1.42 yesterday and is stable at 1.4 today. Patient came to the hospital due to shortness of breath . Patient states she developed cold-like symptoms about a week ago. Patient states she developed chills but is unsure if she had a fever or not. She had a nonproductive cough but states now she is bringing up yellow phlegm. Patient says she developed worsening shortness of breath and came to the hospital. She did undergo cardiac catheterization November 16, 2024 and had a stent placed. She is currently receiving IV Lasix 40 mg twice daily. Patient has history of type 1 diabetes. She admits to constipation. Denies gross hematuria or dysuria. She does admit to taking Motrin 800 mg once daily for chronic pain. Vital signs are stable. General: No acute distress. HEENT: Head exam is unremarkable. On room air. LUNGS: No audible rhonchi or wheezes. HEART: Rate and Rhythm are regular. ABDOMEN: Nontender. EXTREMITITES: No edema. 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 OA, efren in Rt ankle. Hx prob w/ cervical discs. Vaccinated for COVID 19 History of Any Multi-Drug Resistant Organisms: None Reported Past Surgical History: Adenoidectomy, Appendectomy, Tonsillectomy, Tubal Ligation Additional Past Surgical History / Comment(s): Laparoscopies. Pain procedures., cataract, neck fusion. right lower lobectomy. catarcat sx 4 days ago. cervical fusion. ankle fusion Past Anesthesia/Blood Transfusion Reactions: Motion Sickness Additional Past Anesthesia/Blood Transfusion Reaction / Comment(s): no blood transfusions Past Psychological History: Anxiety, Depression Smoking Status: Former smoker Past Alcohol Use History: None Reported Past Drug Use History: Marijuana - Past Family History Mother Family Medical History: Myocardial Infarction ([place]) Additional Family Medical History / Comment(s): Mother at age 48 from coronary artery disease. Patient does not have any brothers and sisters. She has one adult son with no major medical problems. Medications and Allergies Home Medications Medication Instructions Recorded Confirmed Type Montelukast [Singulair] 10 mg PO DAILY 07/28/22 11/15/24 History Albuterol Sulfate [Albuterol 2 puff INHALATION RT-Q6H PRN 09/27/23 11/15/24 History Sulfate Hfa] Gabapentin [Neurontin] 800 mg PO TID 10/26/23 11/15/24 History Ibuprofen [Motrin] 800 mg PO BID 10/26/23 11/15/24 History Insulin Aspart Prot/Insuln Asp See Protocol SQ BID 10/26/23 11/15/24 History [NovoLOG MIX 70-30 Flexpen] cloNIDine HCL [Catapres] 0.3 mg PO HS 10/26/23 11/15/24 History Benzonatate [Tessalon Perles] 100 mg PO TID PRN #20 cap 11/02/23 11/15/24 Rx Budesonide-Formot 160-4.5 Mcg 2 puff INHALATION RT-BID 30 Days 11/02/23 11/15/24 Rx [Symbicort 160-4.5 Mcg Inhaler] #1 each Insulin Glargine,Hum.rec.anlog 20 units SQ DAILY #0 11/02/23 11/15/24 Rx [Lantus Solostar Pen] Albuterol Nebulized [Ventolin 2.5 mg INHALATION RT-Q4H PRN 11/15/24 11/15/24 History Nebulized] Cyclobenzaprine [Flexeril] 10 mg PO TID PRN 11/15/24 11/15/24 History Doxycycline Hyclate 100 mg PO BID 11/15/24 11/15/24 History HYDROcodone/APAP 5-325MG [[place] 1 tab PO TID PRN 11/15/24 11/15/24 History 5-325] Insulin Aspart [NovoLOG Flexpen] See Protocol SQ ACHS 11/15/24 11/15/24 History Levothyroxine Sodium [Synthroid] 175 mcg PO DAILY 11/15/24 11/15/24 History Losartan-Hctz 50-12.5 mg [Hyzaar 1 tab PO DAILY 11/15/24 11/15/24 History 50-12.5] busPIRone HCL 15 mg PO BID PRN 11/15/24 11/15/24 History diphenhydrAMINE [Benadryl] 25 mg PO DAILY PRN 11/15/24 11/15/24 History predniSONE [Deltasone] 40 mg PO DAILY 11/15/24 11/15/24 History rOPINIRole HCL [Requip] 2 mg PO HS 11/15/24 11/15/24 History traMADol HCL 50 mg PO BID PRN 11/15/24 11/15/24 History Allergies Allergy/AdvReac Type Severity Reaction Status Date / Time erythromycin base AdvReac Nausea & Verified 11/15/24 20:11 Vomiting Physical Exam Vitals: Vital Signs Temp Pulse Pulse Resp BP Pulse Ox 11/17/24 09:39 84 11/17/24 09:26 80 99 11/17/24 08:00 98.2 F 79 16 125/74 99 11/17/24 03:24 97.7 F 69 18 95/56 99 11/16/24 23:26 98.1 F 87 20 111/65 97 11/16/24 21:57 92 11/16/24 21:46 90 11/16/24 20:00 98.7 F 90 18 105/69 97 11/16/24 17:41 91 121/66 11/16/24 17:09 96 95/60 11/16/24 16:40 92 102/55 11/16/24 16:10 88 11/16/24 15:56 86 11/16/24 15:40 98.0 F 89 16 109/64 98 11/16/24 14:40 94 16 117/52 99 11/16/24 14:10 85 20 118/71 97 11/16/24 13:47 88 11/16/24 13:40 88 20 121/61 100 11/16/24 13:25 87 20 115/61 97 11/16/24 13:10 88 20 124/76 97 11/16/24 13:01 91 20 129/66 99 Intake and Output 11/16/24 11/17/24 11/17/24 22:59 06:59 14:59 Intake Total 149.837 540 462 Output Total 900 1600 Balance -750.163 -1060 462 Intake: Intake, IV Titration 29.837 Amount Insulin Regular 100 unit 29.837 In Sodium Chloride 0.9% 100 ml @ Titrate IV .Q0M [facility] Rx#:[id number] Oral 120 540 462 Output: Urine 900 1600 Other: Voiding Method External Catheter External Catheter External Catheter Weight 69.6 kg Results - Lab Results Most recent lab results Calcium 9.3 mg/dL (8.4-10.2) 11/17/24 08:46 Magnesium 1.9 mg/dL (1.6-2.3) 11/15/24 18:53 11/15/24 18:53 11/17/24 08:46 Assessment and Plan Plan: Assessment: 1. Acute kidney injury secondary to ATN secondary to cardiorenal syndrome. Creatinine stable at 1.4. 2. Coronary artery disease status post cardiac catheterization November 16, 2024 with stent placement. 3. Type 1 diabetes mellitus. 4. Volume overload. Improved with diuresis. 5. Pneumonia status post antibiotics. 6. Constipation. Plan: Transition to oral diuretics. Add SGLT2 inhibitor. Check UA. Check renal ultrasound. Add lactulose as needed for constipation Avoid nephrotoxins. Advised patient to follow-up outpatient 1 to 2 weeks postdischarge. Preserved EF noted on echocardiogram. Thank you for the consultation. I will continue to follow the patient with you during her hospital stay.
[2024-11-17] MEDS: methylPREDNISolone SOD SUCCI 125 MG/2 ML VIAL IV SCH (12:31)
[2024-11-17 12:39] VITALS: BMI 29.9
--- NOTE | 2024-11-17 14:04 | P.PN ---
Subjective Progress Note Date: 11/17/24 Reason for Consult (text): CHF, elevated troponins History of present illness: This is a 68-year-old female patient with past medical history of diabetes mellitus type I, hypertension, COPD, hypothyroidism, multiple sclerosis, pulmonary adenocarcinoma status post right-sided VATS with right lower lobectomy September 2023, small subsegmental right-sided pulmonary emboli 10/2023 history of tobacco use and dependence. We have been asked to evaluate the patient for CHF and elevated troponins. Patient was at her primary care office 2 days ago had a chest x-ray done at that time was told she had pneumonia and started on antibiotics. She was called yesterday due to an abnormal chest x-ray finding that it was most likely heart failure versus pneumonia and was sent into the emergency center. Patient is complaining of cough, congestion, fevers. No chest pain. She states that she has an appointment set up to see Dr. Yamileth Gonzalez in 11/23 for the first time. She denies having any previous history of known cardiac disease and has not had any cardiac surgeries. Patient states that she has been having cold symptoms as well as dizzy episodes lasting up to 5 seconds whenever she sat but not with standing. She has had chest pain on and off increased with exertion or with emotional stress. The pain comes and goes and it seems to be occurring more often. She also has radiation to the left arm and neck. She denies any lower extremity edema. She states she has Had weight gain with fluid retention in her abdomen. Blood pressure 111/59, heart rate 73, pulse ox 100% on 2 L nasal cannula. Patient is seen today in the emergency center waiting for bed on the cardiac stepdown unit. Patient has been started on IV Lasix 40 mg every 12 hours, IV antibiotics, heparin drip, IV Solu-Medrol and nebulizer treatments. Patient states that she is not feeling much better with the treatment this been started. Patient states that she has not been very active as she has an ankle fusion with chronic pain and also neck fusion and is supposed to have surgery on her lumbar area. -EKG: Sinus rhythm with low voltage, poor R wave progression, no acute ST changes. -Chest x-ray: No acute process. -CT brain: No acute intracranial hemorrhage or midline shift. Chronic small vessel ischemic changes. No acute process. -Laboratory studies: WBC 11.6, hemoglobin 10.7, sodium 134, potassium 5.5, BUN 36 creatinine 1.28. Troponin 0.169, 0.153, 0.148. -Home cardiac medications: Clonidine 0.3 mg at bedtime, losartan/hydrochlorothiazide 50-12.5 mg daily, also on levothyroxine -Echocardiogram performed on 10/2023 revealed normal LV systolic function. -Lexiscan Cardiolite stress test performed 09/15/2023 as an outpatient revealed inducible ischemia involving the moderate-sized area along the mid lateral wall. 11/17/2024 Patient seen and examined. Yesterday, patient underwent cardiac catheterization with Dr. Harris which revealed subtotally occluded OM1, intermediate disease involving the mid LAD, normal left-sided filling pressures. Patient underwent PCI of the OM1. Patient is been started on dual antiplatelet therapy. This morning, patient states that she still has some wheezing. No chest pain. She states she has a little uncomfortable feeling in the left arm that comes and goes. She also states her headache comes and goes. She states she is been up out of bed and is less dizzy from yesterday. She is on IV Lasix 40 mg every 12 hours. Blood pressure 146/69, heart rate 101, pulse ox 94% on room air. Repeat blood work reveals sodium 134, potassium 4.4, BUN 44 creatinine 1.4. Echocardiogram reveals EF of 55 to 60%. Physical examination: Gen: This is a 67-year-old female in no acute distress VS: reviewed HEENT: Head is atraumatic, normocephalic. Pupils equal, round. Sclerae is anicteric. NECK: Supple. No JVD. LUNGS: Bilateral expiratory wheeze. No intercostal retractions. HEART: Regular rate and rhythm. No murmur. ABDOMEN: Soft No tenderness. EXTREMITIES: No pedal edema. No calf tenderness. NEUROLOGICAL: Patient is awake, alert and oriented x3. Assessment: Pneumonia, patient on antibiotics COPD exacerbation NSTEMI status post PCI of OM1 on 11/16 History of adenocarcinoma of the lung Diabetes mellitus type 1 COPD Hypertension Hypothyroidism MS History of PE 10/2023 Tobacco use and dependence, patient quit 2 months ago Plan: Continue patient's home cardiac medications Continue patient on aspirin and atorvastatin and Brilinta 90 mg twice daily Hold beta-chase due to COPD Transition IV Lasix to oral 40 mg daily Monitor TOYA, daily weights, electrolytes and renal function Further recommendations to follow based upon clinical course Nurse practitioner note has been reviewed, I agree with documented findings and plan of care. Patient was seen and examined. Objective - Vital Signs Vital signs: Vital Signs Temp 98.2 F 11/17/24 08:00 Pulse 79 11/17/24 08:00 Resp 16 11/17/24 08:00 BP 125/74 11/17/24 08:00 Pulse Ox 99 11/17/24 08:00 FiO2 Intake & Output 11/16/24 11/17/24 11/17/24 18:59 06:59 18:59 Intake Total 504.472 540 Output Total 900 1600 Balance -395.528 -1060 Weight 69.853 kg 69.6 kg Intake: IV 250 Intake, IV Titration 134.472 0 Amount Heparin Sod,Pork in 0.45% 104.635 NaCl 25,000 unit In 0.45 % NaCl 1 250ml.bag @ 12 UNITS/KG/HR 8.382 mls/hr IV .Q24H [facility] Rx#: [id number] Insulin Regular 100 unit 29.837 0 In Sodium Chloride 0.9% 100 ml @ Titrate IV .Q0M [facility] Rx#:[id number] Oral 120 540 Output: Urine 900 1600 Other: Voiding Method Toilet External Catheter External Catheter - Labs CBC & Chem 7: 11/15/24 18:53 11/17/24 08:46 Labs: Abnormal Lab Results - Last 24 Hours (Table) 11/16/24 11/16/24 11/16/24 Range/Units 07:23 13:08 13:09 POC Glucose (mg/dL) 469 H 430 H (70-110) mg/dL Hemoglobin A1c 7.7 H (<=6.0) % 11/16/24 11/16/24 11/16/24 Range/Units 14:26 15:28 16:29 POC Glucose (mg/dL) 419 H 342 H 309 H (70-110) mg/dL Hemoglobin A1c (<=6.0) % 11/16/24 11/16/24 11/16/24 Range/Units 17:33 18:29 20:55 POC Glucose (mg/dL) 199 H 123 H 185 H (70-110) mg/dL Hemoglobin A1c (<=6.0) % 11/17/24 11/17/24 Range/Units 00:37 06:28 POC Glucose (mg/dL) 165 H 136 H (70-110) mg/dL Hemoglobin A1c (<=6.0) % Microbiology - Last 24 Hours (Table) 11/15/24 18:53 Blood Culture - Preliminary Blood
--- NOTE | 2024-11-17 15:55 | P.PN ---
Progress Note - Text Progress Note Date: 11/17/24 Chief Complaint: Short of breath This is a pleasant 59-year-old patient, follows with Dr. Ryan Pino. Extensive medical history to include COPD, diabetes, hypertension, osteoarthritis, hypothyroid, previous seizure disorder from hypoglycemia, multiple sclerosis, diabetic peripheral neuropathy, optic neuritis, restless leg syndrome anxiety depression. Right lower lobe lobectomy for localized adenocarcinoma in September 2023. Patient now presents with over 10 days of significant cough shortness of breath. [place] febrile. Poor appetite. A bowel movement probably every 3 days. Patient has chronic whole body pain and low back pain due for spinal surgery. Also for close to few weeks patient having chest pain. Specially with activity. Progressively getting worse. Patient is roommate Aubree and children at the bedside. November 17: Propped up in bed. Still has wheezing. No chest pain. Discussed with patient. On DuoNe. IV Solu-Medrol was increased. Patient again counseled about smoking. Active Medications Hydrocodone Bitart/Acetaminophen (Hydrocodone/Apap 5-325mg 1 Each Tab) 1 each PO TID PRN PRN Reason: pain Last Admin: 11/17/24 06:38 Dose: 1 each Al Hydroxide/Mg Hydroxide (Mag Hydrox/Al Hydrox/Simeth 30 Ml Cup) 30 ml PO Q4HR PRN PRN Reason: Heartburn Albuterol Sulfate (Albuterol Nebulized 2.5 Mg/3 Ml) 2.5 mg INHALATION RT-QID PRN PRN Reason: Shortness Of Breath Or Wheezing Last Admin: 11/17/24 12:42 Dose: 2.5 mg Albuterol/Ipratropium (Ipratropium-Albuterol 3 Ml Neb) 3 ml INHALATION RT-QID [facility] Last Admin: 11/17/24 12:42 Dose: Not Given Alprazolam (Alprazolam 0.25 Mg Tab) 0.25 mg PO Q6HR PRN PRN Reason: Mild Anxiety Last Admin: 11/16/24 10:17 Dose: 0.25 mg Alprazolam (Alprazolam 0.5 Mg Tab) 0.5 mg PO Q6HR PRN PRN Reason: Moderate Anxiety Aspirin (Aspirin 81 Mg) 81 mg PO DAILY [facility] Last Admin: 11/17/24 08:25 Dose: 81 mg Atorvastatin Calcium (Atorvastatin 40 Mg Tab) 40 mg PO HS [facility] Atropine Sulfate (Atropine Sulfate 0.1 Mg/Ml 10ml Syringe) 0.5 mg IV ONCE PRN PRN Reason: Symptomatic Bradycardia Benzocaine/Menthol (Benzocaine/Menthol Lozeng 1 Each Lozenge) 1 each MUCOUS MEM Q4HR PRN PRN Reason: Cough Last Admin: 11/16/24 17:51 Dose: 1 each Budesonide/Formoterol Fumarate (Symbicort 160-4.5 Mcg Inhaler) 2 puff INHALATION RT-BID [facility] Last Admin: 11/17/24 09:24 Dose: 2 puff Buspirone HCl (Buspirone Hcl 5 Mg Tab) 15 mg PO BID PRN PRN Reason: Anxiety Clonidine (Clonidine Hcl 0.1 Mg Tab) 0.3 mg PO HS [facility] Last Admin: 11/16/24 23:15 Dose: 0.3 mg Cyclobenzaprine HCl (Cyclobenzaprine 10 Mg Tab) 10 mg PO TID PRN PRN Reason: Muscle Spasm Last Admin: 11/17/24 12:38 Dose: 10 mg Dapagliflozin (Dapagliflozin Propanediol 5 Mg Tablet) 5 mg PO DAILY [facility] Dextrose/Water (Dextrose 50% Syringe 50 Ml) 25 ml IVP PER PROTOCOL PRN; Pro tocol PRN Reason: Hypoglycemia Dextrose/Water (Dextrose 50% Syringe 50 Ml) 50 ml IVP PER PROTOCOL PRN; Protocol PRN Reason: Hypoglycemia Diphenhydramine HCl (Diphenhydramine 25 Mg Cap) 25 mg PO DAILY PRN PRN Reason: Allergy Symptoms Furosemide (Furosemide 40 Mg Tab) 40 mg PO DAILY [facility] Gabapentin (Gabapentin 400 Mg Cap) 800 mg PO TID [facility] Last Admin: 11/17/24 08:25 Dose: 800 mg Insulin Aspart (Insulin Aspart (Novolog) 100 Unit/Ml Vial) 0 unit SQ ACHS [facility]; Protocol Last Admin: 11/17/24 12:33 Dose: 4 unit Insulin Detemir (Insulin Detemir (Levemir) 100 Unit/Ml Syr) 30 unit SQ BID@0 700,2100 [facility] Last Admin: 11/17/24 06:32 Dose: 30 unit Lactulose (Lactulose 20 Gm/30 Ml Cup) 10 gm PO TID PRN PRN Reason: Constipation Stop: 11/20/24 11:51 Levothyroxine Sodium (Levothyroxine 88 Mcg Tab) 176 mcg PO DAILY@0630 [facility] Last Admin: 11/17/24 06:31 Dose: 176 mcg Methylprednisolone Sodium Succinate (Methylprednisolone Sod Succi 125 Mg/2 Ml Vial) 60 mg IV Q6HR [facility] Last Admin: 11/17/24 12:31 Dose: 60 mg Miscellaneous Information (Rx Info: Iv Contrast Was Given 1 Each Misc) 1 each MISCELLANE DAILY PRN PRN Reason: Per Protocol Stop: 11/18/24 12:55 Montelukast Sodium (Montelukast 10 Mg Tab) 10 mg PO DAILY [facility] Last Admin: 11/17/24 08:25 Dose: 10 mg Nicotine (Nicotine 14mg/24hr Patch) 1 patch TRANSDERM DAILY [facility] Last Admin: 11/17/24 08:26 Dose: 1 patch Nitroglycerin (Nitroglycerin Sl Tabs 0.4 Mg Tab) 0.4 mg SUBLINGUAL Q5M PRN PRN Reason: Chest Pain Pantoprazole Sodium (Pantoprazole 40 Mg Tablet) 40 mg PO AC-BRKFST [facility] Last Admin: 11/17/24 06:32 Dose: 40 mg Ropinirole HCl (Ropinirole Hcl 1 Mg Tab) 2 mg PO HS [facility] Last Admin: 11/16/24 21:01 Dose: 2 mg Ticagrelor (Ticagrelor 90 Mg Tab) 90 mg PO BID [facility]; Protocol Last Admin: 11/17/24 08:26 Dose: 90 mg Tramadol HCl (Tramadol 50 Mg Tab) 50 mg PO BID PRN PRN Reason: Pain Last Admin: 11/16/24 13:15 Dose: 50 mg Zolpidem Tartrate (Zolpidem 5 Mg Tab) 5 mg PO HS PRN PRN Reason: Insomnia Past medical history to include: COPD, diabetes, GERD, osteoarthritis, seizure disorder, hypothyroid, multiple sclerosis, diabetic peripheral neuropathy, optic neuritis, decreased vision in the eyes,;, restless leg syndrome, colon polyps, anxiety depression Social history: started smoking in 1978. Half a pack a day. More so in the past. Smoking about less than half a pack a day.. She was drinking heavy alcohol up to about 2017. Has a roommate Aubree. Occasionally does marijuana. Does use a cane Physical examination: VITAL SIGNS: 98.2, 86, 16, 146 x 69, 99% room air GENERAL: BMI 30.1, propped up in bed, wheezing h EYES: Pupils equal. Conjunctiva normal. HEENT: External appearance of nose and ears normal, oral cavity grossly normal. NECK: JVD not raised; masses not palpable. HEART: First and second heart sounds are normal; no edema. LUNGS: Respiratory rate increased; diminished breath sounds, prolonged expiration wheezing ABDOMEN: Soft, nontender, liver spleen not palpable, no masses palpable. PSYCH: [Alert and oriented x3; mood and affect anxious LYMPHATICS: No lymph nodes palpable neck and axilla NEUROLOGICAL: Cranial nerves grossly intact. Poor sensation grossly intact INVESTIGATIONS, reviewed in the clinical context: November 17: Sodium 134 potassium 4.4 BUN 44 creatinine 1.4 2D echocardiogram: EF 55 to 60%. November 16: Sodium 132 potassium 5.8 BUN 42 creatinine 1.42 glucose 330 November 15: White count 9.6 hemoglobin 10.7 platelets 339 sodium 134 potassium 5.5 BUN 36 creatinine 1.28 Troponin I 0.169, 0.153, 0.148 EKG tracing personally reviewed by me-normal sinus rhythm. Chest x-ray film personally reviewed by me-right pleural thickening/effusion. Lungs clear CT brain: Diffuse age-related atrophy Assessment and plan: -Acute non-ST elevation myocardial infarction Successful angioplasty stent to OM1 by Dr. Harris-November 16 Aspirin. IV heparin. Brilinta -History of adeno carcinoma of the right lower lobe. Right lower lobe lobectomy September 2023 -Acute COPD exacerbation in a smoker: Slow to respond DuoNeb 4 times daily. Symbicort. IV Solu-Medrol increased to 60 mg every 6 Pulmonary following. -Chronic nicotine dependence Nicotine patch -No evidence of pneumonia Stop antibiotics -Chronic arthritis multiple joints specially lumbar spine. Due for surgery. Ultram 50 mg twice daily. Neurontin. Flexeril as needed. -Diabetes mellitus type 2, chronically on insulin. . Uncontrolled with hyperglycemia. Levemir. With sliding scale -Diabetic peripheral neuropathy Neurontin 800 mg 3 times daily -Hypothyroid Synthroid 176 mcg -GERD Pepcid -Restless leg syndrome requip 2 mg every daily at bedtime -Anxiety depression BuSpar -Full code Discussed with patient. Was counseled about smoking again. Solu-Medrol in creased. 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 OA, efren in Rt ankle. Hx prob w/ cervical discs. Vaccinated for COVID 19 History of Any Multi-Drug Resistant Organisms: None Reported Past Surgical History: Adenoidectomy, Appendectomy, Tonsillectomy, Tubal Ligation Additional Past Surgical History / Comment(s): Laparoscopies. Pain procedures., cataract, neck fusion. right lower lobectomy. catarcat sx 4 days ago. cervical fusion. ankle fusion Past Anesthesia/Blood Transfusion Reactions: Motion Sickness Additional Past Anesthesia/Blood Transfusion Reaction / Comment(s): no blood transfusions Past Psychological History: Anxiety, Depression Smoking Status: Former smoker Past Alcohol Use History: None Reported Past Drug Use History: Marijuana
[2024-11-17 16:40] LABS: Glucose,Whole Blood 325 mg/dL (70-110)
[2024-11-17 19:13] LABS: Glucose,Whole Blood 436 mg/dL (70-110)
[2024-11-17] MEDS ORDERED: DEXTROSE 50% SYRINGE 50 ML IVP PRN ×2 (20:03)
[2024-11-17] MEDS: ATORVASTATIN 40 MG TAB PO SCH (20:15)
[2024-11-17] MEDS: INSULIN REGULAR 100 UNIT in SODIUM CHLORIDE 0.9% 100 ML IV SCH (20:36)
[2024-11-17 21:12] LABS: Glucose,Whole Blood 472 mg/dL (70-110)
[2024-11-17 22:11] LABS: Glucose,Whole Blood 344 mg/dL (70-110)
[2024-11-17 23:11] LABS: Glucose,Whole Blood 200 mg/dL (70-110)
[2024-11-18 00:07] LABS: Glucose,Whole Blood 112 mg/dL (70-110)
[2024-11-18 01:29] LABS: Glucose,Whole Blood 80 mg/dL (70-110)
[2024-11-18 02:09] LABS: Glucose,Whole Blood 93 mg/dL (70-110)
[2024-11-18 03:12] LABS: Glucose,Whole Blood 243 mg/dL (70-110)
[2024-11-18 04:06] LABS: Glucose,Whole Blood 317 mg/dL (70-110)
[2024-11-18] MEDS: ZOLPIDEM 5 MG TAB PO PRN (04:12)
[2024-11-18 05:05] LABS: Glucose,Whole Blood 326 mg/dL (70-110)
[2024-11-18 06:11] LABS: Glucose,Whole Blood 261 mg/dL (70-110)
[2024-11-18 07:07] LABS: Glucose,Whole Blood 214 mg/dL (70-110)
[2024-11-18 08:30] LABS: Glucose,Whole Blood 72 mg/dL (70-110)
[2024-11-18] MEDS: DAPAGLIFLOZIN PROPANEDIOL 5 MG TABLET PO SCH (08:39)
[2024-11-18] MEDS: FUROSEMIDE 40 MG TAB PO SCH (08:39)
[2024-11-18 09:18] LABS: Glucose,Whole Blood 131 mg/dL (70-110)
--- NOTE | 2024-11-18 10:01 | P.PN ---
Subjective Patient is seen in follow-up for acute kidney injury. Creatinine 1.4 yesterday. On oral Lasix. Denies chest pain or shortness of breath. Vital signs are stable. General: No acute distress. HEENT: Head exam is unremarkable. LUNGS: No audible rhonchi or wheezes. HEART: Rate and Rhythm are regular. ABDOMEN: Nontender. EXTREMITITES: No edema. Objective - Vital Signs Vital signs: Vital Signs Temp 97.5 F L 11/18/24 08:37 Pulse 83 11/18/24 08:37 Resp 20 11/18/24 08:37 BP 128/69 11/18/24 08:37 Pulse Ox 99 11/18/24 08:37 FiO2 Intake & Output 11/17/24 11/18/24 11/18/24 18:59 06:59 18:59 Intake Total 942 39.103 263.262 Balance 942 39.103 263.262 Weight 69.6 kg 71.1 kg Intake: Intake, IV Titration 39.103 23.262 Amount Insulin Regular 100 unit 39.103 23.262 In Sodium Chloride 0.9% 100 ml @ Titrate IV .Q0M [facility] Rx#:[id number] Oral 942 240 Other: Voiding Method External Catheter External Catheter - Labs CBC & Chem 7: 11/15/24 18:53 11/17/24 08:46 Labs: Abnormal Lab Results - Last 24 Hours (Table) 11/15/24 11/17/24 11/17/24 Range/Units 22:37 10:57 11:33 POC Glucose (mg/dL) 250 H 216 H 226 H (70-110) mg/dL 11/17/24 11/17/24 11/17/24 Range/Units 16:38 19:10 21:10 POC Glucose (mg/dL) 325 H 436 H 472 H (70-110) mg/dL 11/17/24 11/17/24 11/18/24 Range/Units 22:09 23:08 00:05 POC Glucose (mg/dL) 344 H 200 H 112 H (70-110) mg/dL 11/18/24 11/18/24 11/18/24 Range/Units 03:07 04:04 05:01 POC Glucose (mg/dL) 243 H 317 H 326 H (70-110) mg/dL 12/11/18/24 11/18/24 Range/Units 06:08 07:04 09:15 POC Glucose (mg/dL) 261 H 214 H 131 H (70-110) mg/dL Microbiology - Last 24 Hours (Table) 11/15/24 18:53 Blood Culture - Preliminary Blood Assessment and Plan Plan: Assessment: 1. Acute kidney injury secondary to ATN secondary to cardiorenal syndrome. Creatinine stable at 1.4. 2. Coronary artery disease status post cardiac catheterization November 16, 2024 with stent placement. 3. Type 1 diabetes mellitus. 4. Volume overload. Improved with diuresis. 5. Pneumonia status post antibiotics. 6. Constipation. Plan: Maintain Lasix. Maintain SGLT2 inhibitor. Follow-up UA. Follow-up renal ultrasound. Maintain lactulose as needed for constipation Avoid nephrotoxins. Advised patient to follow-up outpatient 1 to 2 weeks postdischarge. Preserved EF noted on echocardiogram.
[2024-11-18 10:08] LABS: Glucose,Whole Blood 300 mg/dL (70-110)
[2024-11-18 10:20] LABS: African American GFR (CKD) 59 (>60 ml/min/1.73 sqM); Anion Gap 8 mmol/L; Blood Urea Nitrogen 44 mg/dL (7-17); Calcium 9.6 mg/dL (8.4-10.2); Carbon Dioxide 25 mmol/L (22-30); Chloride 101 mmol/L (98-107); Glucose 197 mg/dL (74-99); Non-African American GFR(CKD) 52 (>60 ml/min/1.73 sqM); Potassium 3.9 mmol/L (3.5-5.1); Sodium 134 mmol/L (137-145)
[2024-11-18 11:13] LABS: Glucose,Whole Blood 318 mg/dL (70-110)
[2024-11-18] MEDS: LACTULOSE 20 GM/30 ML CUP PO PRN (11:18)
[2024-11-18] MEDS: ALBUTEROL NEBULIZED 2.5 MG/3 ML INHALATION SCH (11:33)
[2024-11-18] MEDS ORDERED: BENZONATATE 100 MG CAP PO PRN (11:41)
--- NOTE | 2024-11-18 11:53 | US ---
EXAMINATION TYPE: US kidneys/renal and bladder DATE OF EXAM: 11/18/2024 COMPARISON: NONE CLINICAL INDICATION: Female, 59 years old with history of makenzie; MAKENZIE TECHNIQUE: Grayscale imaging of the bilateral kidneys and urinary bladder: FINDINGS: EXAM MEASUREMENTS: Right Kidney: 9.2 x 4.1 x 3.5 cm Left Kidney: 10.8 x 4.8 x 3.7 cm Right Kidney: No hydronephrosis or masses seen Left Kidney: No hydronephrosis or masses seen Bladder: anechoic Bilateral Jets seen: right only. There is no evidence for hydronephrosis at this point in time. No nephrolithiasis is seen. No ganesh s are identified. The urinary bladder is anechoic. IMPRESSION: No evidence for hydronephrosis [facility], , 11/18/2024 11:51 AM
[2024-11-18] MEDS ORDERED: IPRATROPIUM 0.5 MG/2.5 ML NEBU INHALATION SCH (12:00)
[2024-11-18 12:11] LABS: Glucose,Whole Blood 261 mg/dL (70-110)
[2024-11-18] MEDS: INSULIN DETEMIR (LEVEMIR) 100 UNIT/ML SYR SQ SCH (13:04)
--- NOTE | 2024-11-18 13:14 | P.PN ---
Subjective Progress Note Date: 11/18/24 This is a pleasant 59-year-old patient, follows with Dr. Ryan Pino. Extensive medical history to include COPD, diabetes, hypertension, osteoarthritis, hypothyroid, previous seizure disorder from hypoglycemia, multiple sclerosis, diabetic peripheral neuropathy, optic neuritis, restless leg syndrome anxiety depression. Right lower lobe lobectomy for localized adenocarcinoma in September 2023. Patient now presents with over 10 days of significant cough shortness of breath. [place] febrile. Poor appetite. A bowel movement probably every 3 days. Patient has chronic whole body pain and low back pain due for spinal surgery. Also for close to few weeks patient having chest pain. Specially with activity. Progressively getting worse. Patient is roommate Aubree and children at the bedside. November 17: Propped up in bed. Still has wheezing. No chest pain. Discussed with patient. On . IV Solu-Medrol was increased. Patient again counseled about smoking. 11/18. Patient seen and examined. Patient is very anxious, emotional and crying, asking for Xanax to be increased to 2 mg explained to her the need for her to be judicious about her benzodiazepine use as it can depress her breathing REVIEW OF SYSTEMS: CONSTITUTIONAL: No fever, no malaise,. CARDIOVASCULAR: No chest pain, no palpitations, no syncope. PULMONARY: No shortness of breath, no cough, GASTROINTESTINAL: No diarrhea, no nausea, no vomiting, no abdominal pain. NEUROLOGICAL: No headaches, no weakness, PHYSICAL EXAMINATION: GENERAL: The patient is alert and oriented x3, ill looking, HEENT: Pupils are round and equally reacting to light. EOMI. No scleral icterus. No conjunctival pallor. Normocephalic, atraumatic. No pharyngeal erythema. No thyromegaly. CARDIOVASCULAR: S1 and S2 present. No murmurs, rubs, or gallops. PULMONARY: Coarse breath sounds bilaterally, no wheezing or crackles. ABDOMEN: Soft, nontender, nondistended, normoactive bowel sounds. No palpable organomegaly. MUSCULOSKELETAL: No joint swelling or deformity. EXTREMITIES: No cyanosis, clubbing, or pedal edema. NEUROLOGICAL: Gross neurological examination did not reveal any focal deficits. SKIN: No rashes. Assessment and plan -Acute non-ST elevation myocardial infarction Successful angioplasty stent to OM1 by Dr. Harris-November 16 Continue aspirin, Brilinta Cardiology following -History of adeno carcinoma of the right lower lobe. Right lower lobe lobectomy September 2023 -Acute COPD exacerbation in a smoker: DuoNeb 4 times daily. Symbicort. Continue IV Solu-Medrol, decrease to 40 mg twice a day because of hyperglycemia and patient being very emotional Pulmonary following. Acute kidney injury secondary to ATN secondary to cardiorenal syndrome. Creatinine stable at 1.4. Monitor renal function Avoid nephrotoxic agents Nephrology following -Chronic nicotine dependence Nicotine patch -Chronic arthritis multiple joints specially lumbar spine. Due for surgery. Ultram 50 mg twice daily. Neurontin. Flexeril as needed. -Diabetes mellitus type 2, chronically on insulin. . Uncontrolled with hyperglycemia. Monitor blood sugar levels, DC insulin drip, start Levemir 10 units twice a day -Diabetic peripheral neuropathy Neurontin 800 mg 3 times daily -Hypothyroid Synthroid 176 mcg -GERD Pepcid -Restless leg syndrome requip 2 mg every daily at bedtime -Anxiety depression BuSpar Labs and medication were reviewed.. Continue same treatment. Continue with symptomatic treatment. Resume home medication. Monitor labs and vitals. DVT and GI prophylaxis. Further recommendations as per clinical course of the patient Dictation was produced using [employer] dictation software. please excuse any grammatical, word or spelling errors. Objective - Vital Signs Vital signs: Vital Signs Temp 97.5 F L 11/18/24 08:37 Pulse 83 11/18/24 08:37 Resp 20 11/18/24 08:37 BP 128/69 11/18/24 08:37 Pulse Ox 99 11/18/24 08:37 FiO2 Intake & Output 11/17/24 11/18/24 11/18/24 18:59 06:59 18:59 Intake Total 942 39.103 263.262 Balance 942 39.103 263.262 Weight 69.6 kg 71.1 kg Intake: Intake, IV Titration 39.103 23.262 Amount Insulin Regular 100 unit 39.103 23.262 In Sodium Chloride 0.9% 100 ml @ Titrate IV .Q0M [facility] Rx#:[id number] Oral 942 240 Other: Voiding Method External Catheter External Catheter - Labs CBC & Chem 7: 11/15/24 18:53 11/18/24 09:31 Labs: Abnormal Lab Results - Last 24 Hours (Table) 11/15/24 11/17/24 11/17/24 Range/Units 22:37 10:57 11:33 POC Glucose (mg/dL) 250 H 216 H 226 H (70-110) mg/dL 11/17/24 11/17/24 11/17/24 Range/Units 16:38 19:10 21:10 POC Glucose (mg/dL) 325 H 436 H 472 H (70-110) mg/dL 11/17/24 11/17/24 11/18/24 Range/Units 22:09 23:08 00:05 POC Glucose (mg/dL) 344 H 200 H 112 H (70-110) mg/dL 11/18/24 11/18/24 11/18/24 Range/Units 03:07 04:04 05:01 POC Glucose (mg/dL) 243 H 317 H 326 H (70-110) mg/dL 11/18/24 11/18/24 11/18/24 Range/Units 06:08 07:04 09:15 POC Glucose (mg/dL) 261 H 214 H 131 H (70-110) mg/dL 11/18/24 Range/Units 10:07 POC Glucose (mg/dL) 300 H (70-110) mg/dL Microbiology - Last 24 Hours (Table) 11/15/24 18:53 Blood Culture - Preliminary Blood
--- NOTE | 2024-11-18 13:26 | P.PN ---
Subjective Progress Note Date: 11/18/24 Patient is a 59-year-old female with past medical history significant for lung cancer, pulmonary adenocarcinoma type status post right lower lobectomy; COPD; former tobacco dependence; pulmonary embolism, not currently on anticoagulation; diabetes mellitus type 1; hypothyroidism; MS. PCP is Dr. Pino. Recent chest CT done outpatient showing postsurgical changes of partial right lower lobectomy, previously seen spiculated 2.1 cm mass with cavitation in the right lower lobe nearly completely resolved. There was a small 7.5 mm residual nodule. New 5.4 mm nodule in the posterior right upper lobe. No lymphadenopathy. Disease recurrence cannot be excluded. Plan is for short term follow up. Of note, patient recently treated outpatient for COPD exacerbation/pneumonia by her PCP. URI symptoms started approximately two weeks ago, progressively worsening shortness of breath. chest congestion, and nonproductive cough . Sent in for evaluation by her primary care provider. Admits intermittent exertional substernal chest pain over last couple months. First noticed when painting her house. Usually subsides with rest. No associated nausea, diaphoresis. Associated dizziness. Denies: syncope, palpitations, orthopnea, lower extremity swelling. Weight gain of 9lbs over last 2-3 days. Did have elevated serial troponins on arrival. Diagnosed with non-ST elevation MT. Went for heart catheterization yesterday, had PCI/stenting to the 1. Echocardiogram estimating a preserved left ventricular ejection fraction of 55 to 60%. No obvious regional wall abnormalities. Most recent CBC from 11/15: WBC count 11.6, hemoglobin 10.7, hematocrit 32.3, platelets 339. Most recent BMP from yesterday has a sodium of 132, potassium 5.8, chloride 105, serum bicarb 21, BUN 42, creatinine 1.42, gl ucose 330. Troponins elevated at 0.17, 0.15, and 0.15 respectively. NT proBNP 4210. Chest x-ray shows some possible mild vascular congestion, chronic elevated right hemidiaphragm and postsurgical changes. Current vitals: Temperature 98.1 F, heart rate 90 bpm, blood pressure 111/65 mmHg, SpO2 97% on room air. We were consulted yesterday for management of the patient's COPD. Patient is currently resting comfortably on room air oxygen. She is in no respiratory distress. Faint expiratory wheezes on auscultation. She has already been started on a combination of DuoNebs, Symbicort inhaler, and IV Solu-Medrol. On 11/18/2024, the patient is being seen for a follow-up. Patient is feeling better compared to yesterday. Less short of breath, less bronchospastic and wheezy. She is currently being treated for an acute CF exacerbation. She is on bronchodilators with DuoNeb updrafts. She feels that the albuterol and the DuoNeb is making her more short of breath and is causing paradoxic rhonchorous breath. Based on that, this will be eliminated. The Symbicort will be switched to a combination of Pulmicort and Perforomist. She remains on IV Solu-Medrol. She is also on Lasix 40 mg p.o. daily. Rest of the medications remain essentially unchanged. Sodium levels at 134, potassium is at 3.5, BUN is 44 with a creatinine of 1.1. She has developed some mild hyperglycemia related to systemic steroids. The blood cultures are negative. Objective - Vital Signs Vital signs: Vital Signs Temp 97.5 F L 11/18/24 08:37 Pulse 83 11/18/24 08:37 Resp 20 11/18/24 08:37 BP 128/69 11/18/24 08:37 Pulse Ox 99 11/18/24 08:37 FiO2 Intake & Output 11/17/24 11/18/24 11/18/24 18:59 06:59 18:59 Intake Total 942 39.103 263.262 Balance 942 39.103 263.262 Weight 69.6 kg 71.1 kg Intake: Intake, IV Titration 39.103 23.262 Amount Insulin Regular 100 unit 39.103 23.262 In Sodium Chloride 0.9% 100 ml @ Titrate IV .Q0M ON LICENSE OF [facility] Rx#:[id number] Oral 942 240 Other: Voiding Method External Catheter External Catheter - Exam GENERAL EXAM: Alert, 59-year-old white female, comfortable in no apparent distress. HEAD: Normocephalic and atraumatic EYES: Normal reaction of pupils, equal size. NOSE: Clear with pink turbinates. THROAT: No erythema or exudates. NECK: No masses, no JVD. CHEST: No chest wall deformity. LUNGS: Equal air entry with faint expiratory wheezes. On room air. No conv ersational dyspnea or accessory muscle use.. CVS: S1 and S2 normal with no audible murmur, regular rhythm. No extra heart sounds ABDOMEN: No hepatosplenomegaly, active bowel sounds, no guarding or rigidity. SPINE: No scoliosis or deformity SKIN: No rashes CENTRAL NERVOUS SYSTEM: No focal deficits, tone is normal in all 4 extremities. EXTREMITIES: There is no peripheral edema, clubbing, or cyanosis. Peripheral pulses are intact. Right TR band right wrist TR band, deflated. No hematoma - Labs CBC & Chem 7: 11/15/24 18:53 11/18/24 09:31 Labs: Abnormal Lab Results - Last 24 Hours (Table) 11/15/24 11/17/24 11/17/24 Range/Units 22:37 10:57 11:33 POC Glucose (mg/dL) 250 H 216 H 226 H (70-110) mg/dL 11/17/24 11/17/24 11/17/24 Range/Units 16:38 19:10 21:10 POC Glucose (mg/dL) 325 H 436 H 472 H (70-110) mg/dL 11/17/24 11/17/24 11/18/24 Range/Units 22:09 23:08 00:05 POC Glucose (mg/dL) 344 H 200 H 112 H (70-110) mg/dL 11/18/24 11/18/24 11/18/24 Range/Units 03:07 04:04 05:01 POC Glucose (mg/dL) 243 H 317 H 326 H (70-110) mg/dL 11/18/24 11/18/24 11/18/24 Range/Units 06:08 07:04 09:15 POC Glucose (mg/dL) 261 H 214 H 131 H (70-110) mg/dL Microbiology - Last 24 Hours (Table) 11/15/24 18:53 Blood Culture - Preliminary Blood Assessment and Plan Assessment: Acute COPD exacerbation Non-ST elevation MT, status post heart catheterization done 11/16/2024, patient did receive PCI/stenting of the OM1. Acute dyspnea, secondary to above History of pulmonary adenocarcinoma, status post right sided video-assisted thorascopic surgery and right lower lobectomy on 09/29/2023. Recent chest CT done outpatient 09/18/2024 showing postsurgical changes of partial right lower lobectomy, previously seen spiculated 2.1 cm mass with cavitation in the right lower lobe nearly completely resolved. There was a small 7.5 mm residual nodule. New 5.4 mm nodule in the posterior right upper lobe. Disease recurrence cannot be excluded. Recommendation was for short-term follow-up given patient's history Former tobacco dependence, quitting 1 month ago History of pulmonary embolism, not currently on anticoagulation Diabetes mellitus type 1 Acute kidney injury, creatinine is improving Hyperkalemia, currently receiving Lokelma Anemia of chronic disease History of hypothyroidism History of multiple sclerosis Chronic lumbar back pain and moderate multilevel degeneration with for moderate to severe spinal canal stenosis at L3-L5 Obesity, with a BMI of 30.1 kg/m History of anxiety/depression Plan: Discontinue albuterol and give the patient ipratropium bromide 4 times a day [id number] Continue performance of Pulmicort and discontinue the Symbicort Continue the IV Solu-Medrol Chest x-ray shows mild pulmonary vascular congestion, chronic elevated right hemidiaphragm and postsurgical changes. No focal consolidations or pneumonia. Currently on 2 L of oxygen by nasal cannula Receiving Lasix 40 mg twice daily Continues with dual antiplatelet medication in the form of aspirin and Brilinta. Continues on statin Follow-up echocardiogram showing a preserved left ventricular ejection fraction of 55 to 60% without regional wall abnormalities. Smoking cessation counseling was done. Given nicotine patch. Will continue to follow.
[2024-11-18 13:30] LABS: Appearance,Urine Clear (Clear); Bilirubin,Urine Negative (Negative); Blood,Urine Negative (Negative); Color,Urine Colorless; Glucose,Urine (UA) 3+ (Negative); Ketones,Urine Negative (Negative); Leukocyte Esterase,Urine Negative (Negative); Nitrite,Urine Negative (Negative); PH, Urine 5.5 (5.0-8.0); Protein,Urine Negative (Negative); Specific Gravity,Urine 1.013 (1.001-1.035); Urobilinogen,Urine <2.0 mg/dL (<2.0)
--- NOTE | 2024-11-18 14:29 | P.PN ---
Subjective Progress Note Date: 11/18/24 This is a 68-year-old female patient with past medical history of diabetes mellitus type I, hypertension, COPD, hypothyroidism, multiple sclerosis, pulmonary adenocarcinoma status post right-sided VATS with right lower lobectomy September 2023, small subsegmental right-sided pulmonary emboli 10/2023 history of tobacco use and dependence. We have been asked to evaluate the patient for CHF and elevated troponins. Patient was at her primary care office 2 days ago had a chest x-ray done at that time was told she had pneumonia and started on antibiotics. She was called yesterday due to an abnormal chest x-ray finding that it was most likely heart failure versus pneumonia and was sent into the emergency center. Patient is complaining of cough, congestion, fevers. No chest pain. She states that she has an appointment set up to see Dr. Yamileth Gonzalez in 11/23 for the first time. She denies having any previous history of known cardiac disease and has not had any cardiac surgeries. Patient states that she has been having cold symptoms as well as dizzy episodes lasting up to 5 seconds whenever she sat but not with standing. She has had chest pain on and off increased with exertion or with emotional stress. The pain comes and goes and it seems to be occurring more often. She also has radiation to the left arm and neck. She denies any lower extremity edema. She states she has Had weight gai n with fluid retention in her abdomen. Blood pressure 111/59, heart rate 73, pulse ox 100% on 2 L nasal cannula. Patient is seen today in the emergency center waiting for bed on the cardiac stepdown unit. Patient has been started on IV Lasix 40 mg every 12 hours, IV antibiotics, heparin drip, IV Solu-Medrol and nebulizer treatments. Patient states that she is not feeling much better with the treatment this been started. Patient states that she has not been very active as she has an ankle fusion with chronic pain and also neck fusion and is supposed to have surgery on her lumbar area. -EKG: Sinus rhythm with low voltage, poor R wave progression, no acute ST changes. -Chest x-ray: No acute process. -CT brain: No acute intracranial hemorrhage or midline shift. Chronic small vessel ischemic changes. No acute process. -Laboratory studies: WBC 11.6, hemoglobin 10.7, sodium 134, potassium 5.5, BUN 36 creatinine 1.28. Troponin 0.169, 0.153, 0.148. -Home cardiac medications: Clonidine 0.3 mg at bedtime, losartan/hydrochlorothiazide 50-12.5 mg daily, also on levothyroxine -Echocardiogram performed on 10/2023 revealed normal LV systolic function. -Lexiscan Cardiolite stress test performed 09/15/2023 as an outpatient revealed inducible ischemia involving the moderate-sized area along the mid lateral wall. 11/17/2024 Patient seen and examined. Yesterday, patient underwent cardiac catheterization with Dr. Harris which revealed subtotally occluded OM1, intermediate disease involving the mid LAD, normal left-sided filling pressures. Patient underwent PCI of the OM1. Patient is been started on dual antiplatelet therapy. This morning, patient states that she still has some wheezing. No chest pain. She states she has a little uncomfortable feeling in the left arm that comes and goes. She also states her headache comes and goes. She states she is been up out of bed and is less dizzy from yesterday. She is on IV Lasix 40 mg every 12 hours. Blood pressure 146/69, heart rate 101, pulse ox 94% on room air. Repeat blood work reveals sodium 134, potassium 4.4, BUN 44 creatinine 1.4. Echocardiogram reveals EF of 55 to 60%. 11/18/24 Seen and examined at bedside this a.m. No new cardiovascular events. No reported chest pain chest pressure shortness of breath. Hemodynamically stable. Patient is very anxious and reports that she is having racing thoughts specially with IV steroid use. I will give her 1 dose of Seroquel 25 mg to be given at nighttime to assist with sleeping. Physical examination: Gen: This is a 67-year-old female in no acute distress VS: reviewed HEENT: Head is atraumatic, normocephalic. Pupils equal, round. Sclerae is anicteric. NECK: Supple. No JVD. LUNGS: Bilateral expiratory wheeze. No intercostal retractions. HEART: Regular rate and rhythm. No murmur. ABDOMEN: Soft No tenderness. EXTREMITIES: No pedal edema. No calf tenderness. NEUROLOGICAL: Patient is awake, alert and oriented x3. Assessment: Pneumonia, patient on antibiotics COPD exacerbation NSTEMI status post PCI of OM1 on 11/16 History of adenocarcinoma of the lung Diabetes mellitus type 1 COPD Hypertension Hypothyroidism MS History of PE 10/2023 Tobacco use and dependence, patient quit 2 months ago Plan: Continue patient on aspirin and atorvastatin and Brilinta 90 mg twice daily Continue Lasix 40 mg p.o. daily Farxiga 10 mg daily Hold beta-chase due to COPD Patient is cleared from cardiovascular standpoint. Cardiology team will sign off. Reconsult us in case of any question. Objective - Vital Signs Vital signs: Vital Signs Temp 97.5 F L 11/18/24 08:37 Pulse 76 11/18/24 11:50 Resp 20 11/18/24 11:28 BP 150/78 11/18/24 11:28 Pulse Ox 100 11/18/24 11:28 FiO2 Intake & Output 11/17/24 11/18/24 11/18/24 18:59 06:59 18:59 Intake Total 942 39.103 518.673 Output Total 800 Balance 942 39.103 -281.327 Weight 69.6 kg 71.1 kg Intake: Intake, IV Titration 39.103 38.673 Amount Insulin Regular 100 unit 39.103 38.673 In Sodium Chloride 0.9% 100 ml @ Titrate IV .Q0M [facility] Rx#:[id number] Oral 942 480 Output: Urine 800 Other: Voiding Method External Catheter External Catheter External Catheter - Labs CBC & Chem 7: 11/15/24 18:53 11/18/24 09:31 Labs: Abnormal Lab Results - Last 24 Hours (Table) 11/17/24 11/17/24 11/17/24 Range/Units 16:38 19:10 21:10 Sodium (137-145) mmol/L BUN (7-17) mg/dL Creatinine (0.52-1.04) mg/dL Glucose (74-99) mg/dL POC Glucose (mg/dL) 325 H 436 H 472 H (70-110) mg/dL Urine Glucose (UA) (Negative) 11/17/24 11/17/24 11/18/24 Range/Units 22:09 23:08 00:05 Sodium (137-145) mmol/L BUN (7-17) mg/dL Creatinine (0.52-1.04) mg/dL Glucose (74-99) mg/dL POC Glucose (mg/dL) 344 H 200 H 112 H (70-110) mg/dL Urine Glucose (UA) (Negative) 11/18/24 11/18/24 11/18/24 Range/Units 03:07 04:04 05:01 Sodium (137-145) mmol/L BUN (7-17) mg/dL Creatinine (0.52-1.04) mg/dL Glucose (74-99) mg/dL POC Glucose (mg/dL) 243 H 317 H 326 H (70-110) mg/dL Urine Glucose (UA) (Negative) 11/18/24 11/18/24 11/18/24 Range/Units 06:08 07:04 09:15 Sodium (137-145) mmol/L BUN (7-17) mg/dL Creatinine (0.52-1.04) mg/dL Glucose (74-99) mg/dL POC Glucose (mg/dL) 261 H 214 H 131 H (70-110) mg/dL Urine Glucose (UA) (Negative) 11/18/24 11/18/24 11/18/24 Range/Units 09:31 10:07 11:09 Sodium 134 L (137-145) mmol/L BUN 44 H (7-17) mg/dL Creatinine 1.16 H (0.52-1.04) mg/dL Glucose 197 H (74-99) mg/dL POC Glucose (mg/dL) 300 H 318 H (70-110) mg/dL Urine Glucose (UA) (Negative) 11/18/24 11/18/24 Range/Units 12:08 12:11 Sodium (137-145) mmol/L BUN (7-17) mg/dL Creatinine (0.52-1.04) mg/dL Glucose (74-99) mg/dL POC Glucose (mg/dL) 261 H (70-110) mg/dL Urine Glucose (UA) 3+ H (Negative) Microbiology - Last 24 Hours (Table) 11/15/24 18:53 Blood Culture - Preliminary Blood
[2024-11-18] MEDS: ALPRAZolam 0.5 MG TAB PO PRN (14:37)
[2024-11-18 16:08] LABS: Glucose,Whole Blood 255 mg/dL (70-110)
[2024-11-18] MEDS ORDERED: FORMOTEROL FUMARATE 20 MCG/2 ML NEBU INHALATION SCH (20:00)
[2024-11-18 20:16] LABS: Glucose,Whole Blood 375 mg/dL (70-110)
[2024-11-18] MEDS: methylPREDNISolone SOD SUCCI 40 MG/ML 1 ML VIAL IV SCH (20:25)
[2024-11-18] MEDS: QUEtiapine 25 MG TAB PO SCH (20:26)
[2024-11-18] MEDS: FORMOTEROL FUMARATE 20 MCG/2 ML NEBU INHALATION SCH (20:29)
[2024-11-18] MEDS: BUDESONIDE 0.5 MG/2 ML NEBU INHALATION SCH (20:29)
[2024-11-19] MEDS: ALBUTEROL NEBULIZED 2.5 MG/3 ML INHALATION PRN (04:57)
[2024-11-19 06:31] LABS: Glucose,Whole Blood 317 mg/dL (70-110)
[2024-11-19 07:50] LABS: ALT 28 U/L (4-34); AST 33 U/L (14-36); African American GFR (CKD) 51 (>60 ml/min/1.73 sqM); Albumin 3.7 g/dL (3.5-5.0); Alkaline Phosphatase 75 U/L (38-126); Anion Gap 6 mmol/L; Blood Urea Nitrogen 45 mg/dL (7-17); Calcium 9.3 mg/dL (8.4-10.2); Carbon Dioxide 27 mmol/L (22-30); Chloride 100 mmol/L (98-107); Glucose 356 mg/dL (74-99); Magnesium 1.7 mg/dL (1.6-2.3); Non-African American GFR(CKD) 44 (>60 ml/min/1.73 sqM); Potassium 4.1 mmol/L (3.5-5.1); Sodium 133 mmol/L (137-145); Total Bilirubin 0.3 mg/dL (0.2-1.3); Total Protein 6.1 g/dL (6.3-8.2)
[2024-11-19 07:56] LABS: HCT 32.1 % (34.0-46.0); Hypochromasia Moderate; MCH 31.5 pg (25.0-35.0); MCHC 31.1 g/dL (31.0-37.0); MCV 101.4 fL (80.0-100.0); Macrocytosis Slight; Mean Platelet Volume 9.9; Platelet Count 314 k/uL (150-450); RBC 3.16 m/uL (3.80-5.40); RDW 13.4 % (11.5-15.5); WBC 13.5 k/uL (3.8-10.6)
[2024-11-19] MEDS: DAPAGLIFLOZIN PROPANEDIOL 10 MG TABLET PO SCH (08:55)
--- NOTE | 2024-11-19 09:44 | P.PN ---
Subjective Patient is seen in follow-up for acute kidney injury. Renal function is stable. On oral Lasix. Denies chest pain or shortness of breath. Vital signs are stable. General: No acute distress. HEENT: Head exam is unremarkable. LUNGS: No audible rhonchi or wheezes. HEART: Rate and Rhythm are regular. ABDOMEN: Nontender. EXTREMITITES: No edema. Objective - Vital Signs Vital signs: Vital Signs Temp 98.5 F 11/19/24 03:40 Pulse 96 11/19/24 08:54 Resp 16 11/19/24 08:54 BP 131/69 11/19/24 08:54 Pulse Ox 99 11/19/24 08:54 FiO2 Intake & Output 11/18/24 11/19/24 11/19/24 18:59 06:59 18:59 Intake Total 758.673 410 Output Total 1600 900 Balance -841.327 -900 410 Weight 68.6 kg Intake: IV 10 Invasive Line 2 10 Intake, IV Titration 38.673 Amount Insulin Regular 100 unit 38.673 In Sodium Chloride 0.9% 100 ml @ Titrate IV .Q0M [facility] Rx#:[id number] Oral 720 400 Output: Urine 1600 900 Other: Voiding Method External Catheter External Catheter - Labs CBC & Chem 7: 11/19/24 06:58 11/19/24 06:58 Labs: Abnormal Lab Results - Last 24 Hours (Table) 11/18/24 11/18/24 11/18/24 Range/Units 09:31 10:07 11:09 WBC (3.8-10.6) k/uL RBC (3.80-5.40) m/uL Hgb (11.4-16.0) gm/dL Hct (34.0-46.0) % MCV (80.0-100.0) fL Sodium 134 L (137-145) mmol/L BUN 44 H (7-17) mg/dL Creatinine 1.16 H (0.52-1.04) mg/dL Glucose 197 H (74-99) mg/dL POC Glucose (mg/dL) 300 H 318 H (70-110) mg/dL Total Protein (6.3-8.2) g/dL Urine Glucose (UA) (Negative) 11/18/24 11/18/24 11/18/24 Range/Units 12:08 12:11 16:04 WBC (3.8-10.6) k/uL RBC (3.80-5.40) m/uL Hgb (11.4-16.0) gm/dL Hct (34.0-46.0) % MCV (80.0-100.0) fL Sodium (137-145) mmol/L BUN (7-17) mg/dL Creatinine (0.52-1.04) mg/dL Glucose (74-99) mg/dL POC Glucose (mg/dL) 261 H 255 H (70-110) mg/dL Total Protein (6.3-8.2) g/dL Urine Glucose (UA) 3+ H (Negative) 11/18/24 11/19/24 11/19/24 Range/Units 20:15 06:29 06:58 WBC (3.8-10.6) k/uL RBC (3.80-5.40) m/uL Hgb (11.4-16.0) gm/dL Hct (34.0-46.0) % MCV (80.0-100.0) fL Sodium 133 L (137-145) mmol/L BUN 45 H (7-17) mg/dL Creatinine 1.31 H (0.52-1.04) mg/dL Glucose 356 H (74-99) mg/dL POC Glucose (mg/dL) 375 H 317 H (70-110) mg/dL Total Protein 6.1 L (6.3-8.2) g/dL Urine Glucose (UA) (Negative) 11/19/24 Range/Units 06:58 WBC 13.5 H (3.8-10.6) k/uL RBC 3.16 L (3.80-5.40) m/uL Hgb 10.0 L (11.4-16.0) gm/dL Hct 32.1 L (34.0-46.0) % MCV 101.4 H (80.0-100.0) fL Sodium (137-145) mmol/L BUN (7-17) mg/dL Creatinine (0.52-1.04) mg/dL Glucose (74-99) mg/dL POC Glucose (mg/dL) (70-110) mg/dL Total Protein (6.3-8.2) g/dL Urine Glucose (UA) (Negative) Microbiology - Last 24 Hours (Table) 11/15/24 18:53 Blood Culture - Preliminary Blood Assessment and Plan Plan: Assessment: 1. Acute kidney injury secondary to ATN secondary to cardiorenal syndrome. Creatinine stable at 1.31. UA benign. No hydronephrosis noted on kidney ultrasound. 2. Coronary artery disease status post cardiac catheterization November 16, 2024 with stent placement. 3. Type 1 diabetes mellitus. 4. Volume overload. Improved with diuresis. 5. Pneumonia status post antibiotics. 6. Constipation. Plan: Maintain Lasix. Maintain SGLT2 inhibitor. Maintain lactulose as needed for constipation Avoid nephrotoxins. Advised patient to follow-up outpatient 1 to 2 weeks postdischarge. Preserved EF noted on echocardiogram.
[2024-11-19 11:17] LABS: Glucose,Whole Blood 247 mg/dL (70-110)
[2024-11-19] MEDS: predniSONE 20 MG TAB PO SCH (11:35)
[2024-11-19] MEDS: busPIRone HCl 5 MG TAB PO PRN (11:40)
--- NOTE | 2024-11-19 12:28 | P.PN ---
Subjective Progress Note Date: 11/19/24 Patient is a 59-year-old female with past medical history significant for lung cancer, pulmonary adenocarcinoma type status post right lower lobectomy; COPD; former tobacco dependence; pulmonary embolism, not currently on anticoagulation; diabetes mellitus type 1; hypothyroidism; MS. PCP is Dr. Pino. Recent chest CT done outpatient showing postsurgical changes of partial right lower lobectomy, previously seen spiculated 2.1 cm mass with cavitation in the right lower lobe nearly completely resolved. There was a small 7.5 mm residual nodule. New 5.4 mm nodule in the posterior right upper lobe. No lymphadenopathy. Disease recurrence cannot be excluded. Plan is for short term follow up. Of note, patient recently treated outpatient for COPD exacerbation/pneumonia by her PCP. URI symptoms started approximately two weeks ago, progressively worsening shortness of breath. chest congestion, and nonproductive cough . Sent in for evaluation by her primary care provider. Admits intermittent exertional substernal chest pain over last couple months. First noticed when painting her house. Usually subsides with rest. No associated nausea, diaphoresis. Associated dizziness. Denies: syncope, palpitations, orthopnea, lower extremity swelling. Weight gain of 9lbs over last 2-3 days. Did have elevated serial troponins on arrival. Diagnosed with non-ST elevation NE. Went for heart catheterization yesterday, had PCI/stenting to the 1. Echocardiogram estimating a preserved left ventricular ejection fraction of 55 to 60%. No obvious regional wall abnormalities. Most recent CBC from 11/15: WBC count 11.6, hemoglobin 10.7, hematocrit 32.3, platelets 339. Most recent BMP from yesterday has a sodium of 132, potassium 5.8, chloride 105, serum bicarb 21, BUN 42, creatinine 1.42, gl ucose 330. Troponins elevated at 0.17, 0.15, and 0.15 respectively. NT proBNP 4210. Chest x-ray shows some possible mild vascular congestion, chronic elevated right hemidiaphragm and postsurgical changes. Current vitals: Temperature 98.1 F, heart rate 90 bpm, blood pressure 111/65 mmHg, SpO2 97% on room air. We were consulted yesterday for management of the patient's COPD. Patient is currently resting comfortably on room air oxygen. She is in no respiratory distress. Faint expiratory wheezes on auscultation. She has already been started on a combination of DuoNebs, Symbicort inhaler, and IV Solu-Medrol. On 11/18/2024, the patient is being seen for a follow-up. Patient is feeling better compared to yesterday. Less short of breath, less bronchospastic and wheezy. She is currently being treated for an acute CF exacerbation. She is on bronchodilators with DuoNeb updrafts. She feels that the albuterol and the DuoNeb is making her more short of breath and is causing paradoxic rhonchorous breath. Based on that, this will be eliminated. The Symbicort will be switched to a combination of Pulmicort and Perforomist. She remains on IV Solu-Medrol. She is also on Lasix 40 mg p.o. daily. Rest of the medications remain essentially unchanged. Sodium levels at 134, potassium is at 3.5, BUN is 44 with a creatinine of 1.1. She has developed some mild hyperglycemia related to systemic steroids. The blood cultures are negative. On 11/19/2024, patient is being seen for a follow-up. Doing better. She has not experienced any side effects to Perforomist and Pulmicort nebulized treatments and she is doing better with that. She was taken off the albuterol and she is using only ipratropium. She was also having some side effects related to systemic steroids. The patient was taken off IV Solu-Medrol today and started on prednisone burst taper. Less bronchospastic and wheezy on today's evaluation. White cell count of 13 with a hemoglobin of 10 and a melo telet count of 314. BUN is 45 with a creatinine 1.3 and a sodium level is at 133. No other new complaints otherwise for now. The blood cultures have been negative. The proBNP level was 4210 at time of admission. Viral screen was negative. Rest of the medications remain unchanged. Objective - Vital Signs Vital signs: Vital Signs Temp 98.5 F 11/19/24 03:40 Pulse 96 11/19/24 08:54 Resp 16 11/19/24 08:54 BP 131/69 11/19/24 08:54 Pulse Ox 99 11/19/24 08:54 FiO2 Intake & Output 11/18/24 11/19/24 11/19/24 18:59 06:59 18:59 Intake Total 758.673 410 Output Total 1600 900 Balance -841.327 -900 410 Weight 68.6 kg Intake: IV 10 Invasive Line 2 10 Intake, IV Titration 38.673 Amount Insulin Regular 100 unit 38.673 In Sodium Chloride 0.9% 100 ml @ Titrate IV .Q0M [facility] Rx#:[id number] Oral 720 400 Output: Urine 1600 900 Other: Voiding Method External Catheter External Catheter - Exam GENERAL EXAM: Alert, 59-year-old white female, comfortable in no apparent distress. HEAD: Normocephalic and atraumatic EYES: Normal reaction of pupils, equal size. NOSE: Clear with pink turbinates. THROAT: No erythema or exudates. NECK: No masses, no JVD. CHEST: No chest wall deformity. LUNGS: Equal air entry with faint expiratory wheezes. On room air. No conversational dyspnea or accessory muscle use.. CVS: S1 and S2 normal with no audible murmur, regular rhythm. No extra heart sounds ABDOMEN: No hepatosplenomegaly, active bowel sounds, no guarding or rigidity. SPINE: No scoliosis or deformity SKIN: No rashes CENTRAL NERVOUS SYSTEM: No focal deficits, tone is normal in all 4 extremities. EXTREMITIES: There is no peripheral edema, clubbing, or cyanosis. Peripheral pulses are intact. Right TR band right wrist TR band, deflated. No hematoma - Labs CBC & Chem 7: 11/19/24 06:58 11/19/24 06:58 Labs: Abnormal Lab Results - Last 24 Hours (Table) 11/18/24 11/18/24 11/18/24 Range/Units 09:31 10:07 11:09 WBC (3.8-10.6) k/uL RBC (3.80-5.40) m/uL Hgb (11.4-16.0) gm/dL Hct (34.0-46.0) % MCV (80.0-100.0) fL Sodium 134 L (137-145) mmol/L BUN 44 H (7-17) mg/dL Creatinine 1.16 H (0.52-1.04) mg/dL Glucose 197 H (74-99) mg/dL POC Glucose (mg/dL) 300 H 318 H (70-110) mg/dL Total Protein (6.3-8.2) g/dL Urine Glucose (UA) (Negative) 11/18/24 11/18/24 11/18/24 Range/Units 12:08 12:11 16:04 WBC (3.8-10.6) k/uL RBC (3.80-5.40) m/uL Hgb (11.4-16.0) gm/dL Hct (34.0-46.0) % MCV (80.0-100.0) fL Sodium (137-145) mmol/L BUN (7-17) mg/dL Creatinine (0.52-1.04) mg/dL Glucose (74-99) mg/dL POC Glucose (mg/dL) 261 H 255 H (70-110) mg/dL Total Protein (6.3-8.2) g/dL Urine Glucose (UA) 3+ H (Negative) 11/18/24 11/19/24 11/19/24 Range/Units 20:15 06:29 06:58 WBC (3.8-10.6) k/uL RBC (3.80-5.40) m/uL Hgb (11.4-16.0) gm/dL Hct (34.0-46.0) % MCV (80.0-100.0) fL Sodium 133 L (137-145) mmol/L BUN 45 H (7-17) mg/dL Creatinine 1.31 H (0.52-1.04) mg/dL Glucose 356 H (74-99) mg/dL POC Glucose (mg/dL) 375 H 317 H (70-110) mg/dL Total Protein 6.1 L (6.3-8.2) g/dL Urine Glucose (UA) (Negative) 11/19/24 Range/Units 06:58 WBC 13.5 H (3.8-10.6) k/uL RBC 3.16 L (3.80-5.40) m/uL Hgb 10.0 L (11.4-16.0) gm/dL Hct 32.1 L (34.0-46.0) % MCV 101.4 H (80.0-100.0) fL Sodium (137-145) mmol/L BUN (7-17) mg/dL Creatinine (0.52-1.04) mg/dL Glucose (74-99) mg/dL POC Glucose (mg/dL) (70-110) mg/dL Total Protein (6.3-8.2) g/dL Urine Glucose (UA) (Negative) Microbiology - Last 24 Hours (Table) 11/15/24 18:53 Blood Culture - Preliminary Blood Assessment and Plan Assessment: Acute COPD exacerbation, improving Non-ST elevation NE, status post heart catheterization done 11/16/2024, patient did receive PCI/stenting of the OM1. Acute dyspnea, secondary to above History of pulmonary adenocarcinoma, status post right sided video-assisted thorascopic surgery and right lower lobectomy on 09/29/2023. Recent chest CT done outpatient 09/18/2024 showing postsurgical changes of partial right lower lobectomy, previously seen spiculated 2.1 cm mass with cavitation in the right lower lobe nearly completely resolved. There was a small 7.5 mm residual nodule. New 5.4 mm nodule in the posterior right upper lobe. Disease recurrence cannot be excluded. Recommendation was for short-term follow-up given patient's history Former tobacco dependence, quitting 1 month ago History of pulmonary embolism, not currently on anticoagulation Diabetes mellitus type 1 Acute kidney injury, creatinine is improving Hyperkalemia, currently receiving Lokelma Anemia of chronic disease History of hypothyroidism History of multiple sclerosis Chronic lumbar back pain and moderate multilevel degeneration with for moderate to severe spinal canal stenosis at L3-L5 Obesity, with a BMI of 30.1 kg/m History of anxiety/depression Plan: Clinically improving Keep the patient off the albuterol Continue ipratropium bromide 4 times a day [id number] Continue performance of Pulmicort and discontinue the Symbicort Stop the IV Solu-Medrol start the patient on prednisone burst taper starting with 40 mg p.o. daily Chest x-ray shows mild pulmonary vascular congestion, chronic elevated right hemidiaphragm and postsurgical changes. No focal consolidations or pneumonia. Currently on 2 L of oxygen by nasal cannula Lasix 40 mg twice daily Continues with dual antiplatelet medication in the form of aspirin and Brilinta. Continues on statin Follow-up echocardiogram showing a preserved left ventricular ejection fraction of 55 to 60% without regional wall abnormalities. Smoking cessation counseling was done. Given nicotine patch. Will continue to follow.
--- NOTE | 2024-11-19 12:56 | P.PN ---
Subjective Progress Note Date: 11/19/24 This is a pleasant 59-year-old patient, follows with Dr. Ryan Pino. Extensive medical history to include COPD, diabetes, hypertension, osteoarthritis, hypothyroid, previous seizure disorder from hypoglycemia, multiple sclerosis, diabetic peripheral neuropathy, optic neuritis, restless leg syndrome anxiety depression. Right lower lobe lobectomy for localized adenocarcinoma in September 2023. Patient now presents with over 10 days of significant cough shortness of breath. [place] febrile. Poor appetite. A bowel movement probably every 3 days. Patient has chronic whole body pain and low back pain due for spinal surgery. Also for close to few weeks patient having chest pain. Specially with activity. Progressively getting worse. Patient is roommate Aubree and children at the bedside. November 17: Propped up in bed. Still has wheezing. No chest pain. Discussed with patient. On . IV Solu-Medrol was increased. Patient again counseled about smoking. 11/18. Patient seen and examined. Patient is very anxious, emotional and crying, asking for Xanax to be increased to 2 mg explained to her the need for her to be judicious about her benzodiazepine use as it can depress her breathing 11/19. Patient seen examined. Patient in a very pleasant mood compared to yesterday, no longer tearful or emotional. Blood sugar slightly better controlled REVIEW OF SYSTEMS: CONSTITUTIONAL: No fever, no malaise,. CARDIOVASCULAR: No chest pain, no palpitations, no syncope. PULMONARY: No shortness of breath, no cough, GASTROINTESTINAL: No diarrhea, no nausea, no vomiting, no abdominal pain. NEUROLOGICAL: No headaches, no weakness, PHYSICAL EXAMINATION: GENERAL: The patient is alert and oriented x3, ill looking, HEENT: Pupils are round and equally reacting to light. EOMI. No scleral icterus. No conjunctival pallor. Normocephalic, atraumatic. No pharyngeal erythema. No thyromegaly. CARDIOVASCULAR: S1 and S2 present. No murmurs, rubs, or gallops. PULMONARY: Coarse breath sounds bilaterally, no wheezing or crackles. ABDOMEN: Soft, nontender, nondistended, normoactive bowel sounds. No palpable organomegaly. MUSCULOSKELETAL: No joint swelling or deformity. EXTREMITIES: No cyanosis, clubbing, or pedal edema. NEUROLOGICAL: Gross neurological examination did not reveal any focal deficits. SKIN: No rashes. Assessment and plan -Acute non-ST elevation myocardial infarction Successful angioplasty stent to OM1 by Dr. Harris-November 16 Continue aspirin, Brilinta Cardiology following -History of adeno carcinoma of the right lower lobe. Right lower lobe lobectomy September 2023 -Acute COPD exacerbation in a smoker: DuoNeb 4 times daily. Symbicort. Continue IV Solu-Medrol 40 mg every 12 Pulmonary following. Acute kidney injury secondary to ATN secondary to cardiorenal syndrome. Creatinine stable at 1.4. Monitor renal function Avoid nephrotoxic agents Nephrology following -Chronic nicotine dependence Nicotine patch -Chronic arthritis multiple joints specially lumbar spine. Due for surgery. Ultram 50 mg twice daily. Neurontin. Flexeril as needed. -Diabetes mellitus type 2, chronically on insulin. . Uncontrolled with hypergl ycemia. Monitor blood sugar levels, continue Levemir 10 units twice a day, sliding scale insulin -Diabetic peripheral neuropathy Neurontin 800 mg 3 times daily -Hypothyroid Synthroid 176 mcg -GERD Pepcid -Restless leg syndrome requip 2 mg every daily at bedtime -Anxiety depression BuSpar Labs and medication were reviewed.. Continue same treatment. Continue with symptomatic treatment. Resume home medication. Monitor labs and vitals. DVT and GI prophylaxis. Further recommendations as per clinical course of the patient Dictation was produced using [employer] dictation software. please excuse any grammatical, word or spelling errors. Objective - Vital Signs Vital signs: Vital Signs Temp 98.5 F 11/19/24 03:40 Pulse 96 11/19/24 08:54 Resp 16 11/19/24 08:54 BP 131/69 11/19/24 08:54 Pulse Ox 99 11/19/24 08:54 FiO2 Intake & Output 11/18/24 11/19/24 11/19/24 18:59 06:59 18:59 Intake Total 758.673 410 Output Total 1600 900 Balance -841.327 -900 410 Weight 68.6 kg Intake: IV 10 Invasive Line 2 10 Intake, IV Titration 38.673 Amount Insulin Regular 100 unit 38.673 In Sodium Chloride 0.9% 100 ml @ Titrate IV .Q0M [facility] Rx#:[id number] Oral 720 400 Output: Urine 1600 900 Other: Voiding Method External Catheter External Catheter - Labs CBC & Chem 7: 11/19/24 06:58 11/19/24 06:58 Labs: Abnormal Lab Results - Last 24 Hours (Table) 11/18/24 11/18/24 11/18/24 Range/Units 11:09 12:08 12:11 WBC (3.8-10.6) k/uL RBC (3.80-5.40) m/uL Hgb (11.4-16.0) gm/dL Hct (34.0-46.0) % MCV (80.0-100.0) fL Sodium (137-145) mmol/L BUN (7-17) mg/dL Creatinine (0.52-1.04) mg/dL Glucose (74-99) mg/dL POC Glucose (mg/dL) 318 H 261 H (70-110) mg/dL Total Protein (6.3-8.2) g/dL Urine Glucose (UA) 3+ H (Negative) 11/18/24 11/18/24 11/19/24 Range/Units 16:04 20:15 06:29 WBC (3.8-10.6) k/uL RBC (3.80-5.40) m/uL Hgb (11.4-16.0) gm/dL Hct (34.0-46.0) % MCV (80.0-100.0) fL Sodium (137-145) mmol/L BUN (7-17) mg/dL Creatinine (0.52-1.04) mg/dL Glucose (74-99) mg/dL POC Glucose (mg/dL) 255 H 375 H 317 H (70-110) mg/dL Total Protein (6.3-8.2) g/dL Urine Glucose (UA) (Negative) 11/19/24 11/19/24 Range/Units 06:58 06:58 WBC 13.5 H (3.8-10.6) k/uL RBC 3.16 L (3.80-5.40) m/uL Hgb 10.0 L (11.4-16.0) gm/dL Hct 32.1 L (34.0-46.0) % MCV 101.4 H (80.0-100.0) fL Sodium 133 L (137-145) mmol/L BUN 45 H (7-17) mg/dL Creatinine 1.31 H (0.52-1.04) mg/dL Glucose 356 H (74-99) mg/dL POC Glucose (mg/dL) (70-110) mg/dL Total Protein 6.1 L (6.3-8.2) g/dL Urine Glucose (UA) (Negative) Microbiology - Last 24 Hours (Table) 11/15/24 18:53 Blood Culture - Preliminary Blood
[2024-11-19 17:09] LABS: Glucose,Whole Blood 369 mg/dL (70-110)
[2024-11-19 20:02] LABS: Glucose,Whole Blood 431 mg/dL (70-110)
[2024-11-20 05:56] LABS: Glucose,Whole Blood 113 mg/dL (70-110)
[2024-11-20 06:04] VITALS: RESP 20
--- NOTE | 2024-11-20 10:19 | P.PN ---
Subjective Patient is seen in follow-up for acute kidney injury. Renal function is stable. On oral Lasix. Denies chest pain or shortness of breath. Vital signs are stable. General: No acute distress. HEENT: Head exam is unremarkable. LUNGS: No audible rhonchi or wheezes. HEART: Rate and Rhythm are regular. ABDOMEN: Nontender. EXTREMITITES: No edema. Objective - Vital Signs Vital signs: Vital Signs Temp 98.4 F 11/20/24 09:11 Pulse 80 11/20/24 09:51 Resp 20 11/20/24 09:11 BP 110/67 11/20/24 09:11 Pulse Ox 100 11/20/24 09:11 FiO2 Intake & Output 11/19/24 11/20/24 11/20/24 18:59 06:59 18:59 Intake Total 620 10 550 Balance 620 10 550 Intake: IV 20 10 10 Invasive Line 2 20 10 10 Oral 600 540 Other: Voiding Method External Catheter Toilet Toilet - Labs CBC & Chem 7: 11/19/24 06:58 11/19/24 06:58 Labs: Abnormal Lab Results - Last 24 Hours (Table) 11/19/24 11/19/24 11/19/24 Range/Units 11:16 16:08 20:00 POC Glucose (mg/dL) 247 H 369 H 431 H (70-110) mg/dL 11/20/24 Range/Units 05:55 POC Glucose (mg/dL) 113 H (70-110) mg/dL Assessment and Plan Plan: Assessment: 1. Acute kidney injury secondary to ATN secondary to cardiorenal syndrome. Creatinine stable at 1.31 yesterday. UA benign. No hydronephrosis noted on kidney ultrasound. 2. Coronary artery disease status post cardiac catheterization November 16, 2024 with stent placement. 3. Type 1 diabetes mellitus. 4. Volume overload. Improved with diuresis. 5. Pneumonia status post antibiotics. 6. Constipation. Plan: Maintain Lasix. Maintain SGLT2 inhibitor. Maintain lactulose as needed for constipation Avoid nephrotoxins. Advised patient to follow-up outpatient 1 to 2 weeks postdischarge. Preserved EF noted on echocardiogram.
[2024-11-20 11:18] VITALS: BP 152/71; TEMP 98.3
[2024-11-20 11:48] LABS: Glucose,Whole Blood 287 mg/dL (70-110)
[2024-11-20 12:28] VITALS: PULSE 80
--- NOTE | 2024-11-20 13:25 | P.DS ---
Providers Date of admission: 11/15/24 19:52 Expected date of discharge: 11/20/24 Attending physician: Azeem Keen Consults: 11/15/24 19:51 Consult Physician Routine Consulting Provider: Juan Manuel Melvin Consult Reason/Comments: [email or web address] Do you want consulting provider notified?: Yes 11/16/24 12:55 Consult Physician Routine Consulting Provider: [facility] Consult Reason/Comments: Post Interventional Patient Do you want consulting provider notified?: Already Contacted 11/16/24 13:46 Consult Physician Routine Consulting Provider: Van Mejia Consult Reason/Comments: renal failure Do you want consulting provider notified?: Yes 11/16/24 13:48 Consult Physician Routine Consulting Provider: Laurie Garcia Consult Reason/Comments: copd Do you want consulting provider notified?: Yes Primary care physician: Ryan Pino [facility] Course: Discharge diagnoses; -Acute non-ST elevation myocardial infarction Successful angioplasty stent to OM1 by Dr. Harris-November 16 Continue aspirin, Brilinta. 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 Right lower lobe lobectomy September 2023 -Acute COPD exacerbation in a smoker: Continue breathing treatments at home, continue prednisone Acute kidney injury secondary to ATN secondary to cardiorenal syndrome. Creatinine stable at 1.4. Nephrology recommended keeping patient on Lasix and Farxiga -Chronic nicotine dependence Nicotine patch -Chronic arthritis multiple joints specially lumbar spine. Due for surgery. Ultram 50 mg twice daily. Neurontin. Flexeril as needed. -Diabetes mellitus type 2, chronically on insulin. . Uncontrolled with hyperglycemia. Continue home insulin regimen -Diabetic peripheral neuropathy Neurontin 800 mg 3 times daily -Hypothyroid Synthroid 176 mcg -GERD Pepcid -Restless leg syndrome requip 2 mg every daily at bedtime -Anxiety depression [facility] course; This is a pleasant 59-year-old patient, follows with Dr. Ryan Pino. Extensive medical history to include COPD, diabetes, hypertension, osteoarthritis, hypothyroid, previous seizure disorder from hypoglycemia, multiple sclerosis, diabetic peripheral neuropathy, optic neuritis, restless leg syndrome anxiety depression. Right lower lobe lobectomy for localized adenocarcinoma in September 2023. Patient now presents with over 10 days of significant cough shortness of breath. [place] febrile. Poor appetite. A bowel movement probably every 3 days. Patient has chronic whole body pain and low back pain due for spinal surgery. Also for close to few weeks patient having chest pain. Specially with activity. Progressively getting worse. Patient is roommate Aubree and children at the bedside. November 17: Propped up in bed. Still has wheezing. No chest pain. Discussed with patient. On DuoNeb. IV Solu-Medrol was increased. Patient again c ounseled about smoking. 11/18. Patient seen and examined. Patient is very anxious, emotional and crying, asking for Xanax to be increased to 2 mg explained to her the need for her to be judicious about her benzodiazepine use as it can depress her breathing 11/19. Patient seen examined. Patient in a very pleasant mood compared to yesterday, no longer tearful or emotional. Blood sugar slightly better controlled 11/20. Patient seen and examined. Patient is doing much better, IV Solu-Medrol switched to prednisone. Pulmonology cleared the patient for discharge, being discharged on prednisone 40 mL daily for 3 more days PHYSICAL EXAMINATION: GENERAL: The patient is alert and oriented x3, not in any acute distress. Ill looking HEENT: Pupils are round and equally reacting to light. EOMI. No scleral icterus. No conjunctival pallor. Normocephalic, atraumatic. No pharyngeal erythema. No thyromegaly. CARDIOVASCULAR: S1 and S2 present. No murmurs, rubs, or gallops. PULMONARY: Chest is clear to auscultation, no wheezing or crackles. ABDOMEN: Soft, nontender, nondistended, normoactive bowel sounds. No palpable organomegaly. MUSCULOSKELETAL: No joint swelling or deformity. EXTREMITIES: No cyanosis, clubbing, or pedal edema. NEUROLOGICAL: Gross neurological examination did not reveal any focal deficits. SKIN: No rashes. Dictation was produced using [employer] dictation software. please excuse any grammatical, word or spelling errors. Patient Condition at Discharge: Fair Plan - Discharge Summary Discharge Rx Participant: Yes New Discharge Prescriptions: New Furosemide [Lasix] 40 mg PO DAILY 30 Days #30 tab Atorvastatin [Lipitor] 40 mg PO HS 30 Days #30 tab Aspirin 81 mg PO DAILY 30 Days #30 tab Ticagrelor [Brilinta] 90 mg PO BID 30 Days #60 tab predniSONE [Deltasone] 40 mg PO DAILY 3 Days #6 tab Dapagliflozin Propanediol [Farxiga] 10 mg PO DAILY 30 Days #30 tab Nicotine [Nicoderm Cq 21 mg] 21 mg TRANSDERM DAILY 21 Days #21 patch Continue cloNIDine HCL [Catapres] 0.3 mg PO HS Budesonide-Formot 160-4.5 Mcg [Symbicort 160-4.5 Mcg Inhaler] 2 puff INHALATION RT-BID 30 Days #1 each Benzonatate [Tessalon Perles] 100 mg PO TID PRN #20 cap PRN Reason: Cough Insulin Glargine,Hum.rec.anlog [Lantus Solostar Pen] 20 units SQ DAILY #0 busPIRone HCL 15 mg PO BID PRN PRN Reason: Anxiety traMADol HCL 50 mg PO BID PRN PRN Reason: Pain HYDROcodone/APAP 5-325MG [[place] 5-325] 1 tab PO TID PRN PRN Reason: pain rOPINIRole HCL [Requip] 2 mg PO HS Levothyroxine Sodium [Synthroid] 175 mcg PO DAILY Cyclobenzaprine [Flexeril] 10 mg PO TID PRN PRN Reason: Muscle Spasm diphenhydrAMINE [Benadryl] 25 mg PO DAILY PRN PRN Reason: Allergy Symptoms Insulin Aspart [NovoLOG Flexpen] See Protocol SQ ACHS Montelukast [Singulair] 10 mg PO DAILY Albuterol Sulfate [Albuterol Sulfate Hfa] 2 puff INHALATION RT-Q6H PRN PRN Reason: Shortness Of Breath Insulin Aspart Prot/Insuln Asp [NovoLOG MIX 70-30 Flexpen] See Protocol SQ BID Gabapentin [Neurontin] 800 mg PO TID Albuterol Nebulized [Ventolin Nebulized] 2.5 mg INHALATION RT-Q4H PRN PRN Reason: Shortness Of Breath Discontinued Doxycycline Hyclate 100 mg PO BID Losartan-Hctz 50-12.5 mg [Hyzaar 50-12.5] 1 tab PO DAILY Ibuprofen [Motrin] 800 mg PO BID predniSONE [Deltasone] 40 mg PO DAILY Discharge Medication List Montelukast [Singulair] 10 mg PO DAILY 07/28/22 [History] Albuterol Sulfate [Albuterol Sulfate Hfa] 2 puff INHALATION RT-Q6H PRN 09/27/23 [History] Gabapentin [Neurontin] 800 mg PO TID 10/26/23 [History] Insulin Aspart Prot/Insuln Asp [NovoLOG MIX 70-30 Flexpen] See Protocol SQ BID 10/26/23 [History] cloNIDine HCL [Catapres] 0.3 mg PO HS 10/26/23 [History] Benzonatate [Tessalon Perles] 100 mg PO TID PRN #20 cap 11/02/23 [Rx] Budesonide-Formot 160-4.5 Mcg [Symbicort 160-4.5 Mcg Inhaler] 2 puff INHALATION RT-BID 30 Days #1 each 11/02/23 [Rx] Insulin Glargine,Hum.rec.anlog [Lantus Solostar Pen] 20 units SQ DAILY #0 11/02/23 [Rx] Albuterol Nebulized [Ventolin Nebulized] 2.5 mg INHALATION RT-Q4H PRN 11/15/24 [History] Cyclobenzaprine [Flexeril] 10 mg PO TID PRN 11/15/24 [History] HYDROcodone/APAP 5-325MG [[place] 5-325] 1 tab PO TID PRN 11/15/24 [History] Insulin Aspart [NovoLOG Flexpen] See Protocol SQ ACHS 11/15/24 [History] Levothyroxine Sodium [Synthroid] 175 mcg PO DAILY 11/15/24 [History] busPIRone HCL 15 mg PO BID PRN 11/15/24 [History] diphenhydrAMINE [Benadryl] 25 mg PO DAILY PRN 11/15/24 [History] rOPINIRole HCL [Requip] 2 mg PO HS 11/15/24 [History] traMADol HCL 50 mg PO BID PRN 11/15/24 [History] Aspirin 81 mg PO DAILY 30 Days #30 tab 11/20/24 [Rx] Atorvastatin [Lipitor] 40 mg PO HS 30 Days #30 tab 11/20/24 [Rx] Dapagliflozin Propanediol [Farxiga] 10 mg PO DAILY 30 Days #30 tab 11/20/24 [Rx] Furosemide [Lasix] 40 mg PO DAILY 30 Days #30 tab 11/20/24 [Rx] Nicotine [Nicoderm Cq 21 mg] 21 mg TRANSDERM DAILY 21 Days #21 patch 12/23/24 [Rx] Ticagrelor [Brilinta] 90 mg PO BID 30 Days #60 tab 11/20/24 [Rx] predniSONE [Deltasone] 40 mg PO DAILY 3 Days #6 tab 11/20/24 [Rx] Follow up Appointment(s)/Referral(s): Gustavo Harris MD [STAFF PHYSICIAN] - 1 Week Ryan Pino MD [Primary Care Provider] - 1-2 days Zeb Waldron MD [STAFF PHYSICIAN] - 1 Week Discharge Disposition: HOME SELF-CARE
--- NOTE | 2024-11-20 14:08 | P.PN ---
Subjective Progress Note Date: 11/20/24 Patient is a 59-year-old female with past medical history significant for lung cancer, pulmonary adenocarcinoma type status post right lower lobectomy; COPD; former tobacco dependence; pulmonary embolism, not currently on anticoagulation; diabetes mellitus type 1; hypothyroidism; MS. PCP is Dr. Pino. Recent chest CT done outpatient showing postsurgical changes of partial right lower lobectomy, previously seen spiculated 2.1 cm mass with cavitation in the right lower lobe nearly completely resolved. There was a small 7.5 mm residual nodule. New 5.4 mm nodule in the posterior right upper lobe. No lymphadenopathy. Disease recurrence cannot be excluded. Plan is for short term follow up. Of note, patient recently treated outpatient for COPD exacerbation/pneumonia by her PCP. URI symptoms started approximately two weeks ago, progressively worsening shortness of breath. chest congestion, and nonproductive cough . Sent in for evaluation by her primary care provider. Admits intermittent exertional substernal chest pain over last couple months. First noticed when painting her house. Usually subsides with rest. No associated nausea, diaphoresis. Associated dizziness. Denies: syncope, palpitations, orthopnea, lower extremity swelling. Weight gain of 9lbs over last 2-3 days. Did have elevated serial troponins on arrival. Diagnosed with non-ST elevation [place]. Went for heart catheterization yesterday, had PCI/stenting to the 1. Echocardiogram estimating a preserved left ventricular ejection fraction of 55 to 60%. No obvious regional wall abnormalities. Most recent CBC from 11/15: WBC count 11.6, hemoglobin 10.7, hematocrit 32.3, platelets 339. Most recent BMP from yesterday has a sodium of 132, potassium 5.8, chloride 105, serum bicarb 21, BUN 42, creatinine 1.42, glucose 330. Troponins elevated at 0.17, 0.15, and 0.15 respectively. NT proBNP 4210. Chest x-ray shows some possible mild vascular congestion, chronic elevated right hemidiaphragm and postsurgical changes. Current vitals: Temperature 98.1 F, heart rate 90 bpm, blood pressure 111/65 mmHg, SpO2 97% on room air. We were consulted yesterday for management of the patient's COPD. Patient is currently resting comfortably on room air oxygen. She is in no respiratory distress. Faint expiratory wheezes on auscultation. She has already been started on a combination of DuoNebs, Symbicort inhaler, and IV Amparo u-Medrol. On 11/18/2024, the patient is being seen for a follow-up. Patient is feeling better compared to yesterday. Less short of breath, less bronchospastic and wheezy. She is currently being treated for an acute CF exacerbation. She is on bronchodilators with DuoNeb updrafts. She feels that the albuterol and the DuoNeb is making her more short of breath and is causing paradoxic rhonchorous breath. Based on that, this will be eliminated. The Symbicort will be switched to a combination of Pulmicort and Perforomist. She remains on IV Solu-Medrol. She is also on Lasix 40 mg p.o. daily. Rest of the medications remain essentially unchanged. Sodium levels at 134, potassium is at 3.5, BUN is 44 with a creatinine of 1.1. She has developed some mild hyperglycemia related to systemic steroids. The blood cultures are negative. On 11/19/2024, patient is being seen for a follow-up. Doing better. She has not experienced any side effects to Perforomist and Pulmicort nebulized treat ments and she is doing better with that. She was taken off the albuterol and she is using only ipratropium. She was also having some side effects related to systemic steroids. The patient was taken off IV Solu-Medrol today and started on prednisone burst taper. Less bronchospastic and wheezy on today's evaluation. White cell count of 13 with a hemoglobin of 10 and a platelet count of 314. BUN is 45 with a creatinine 1.3 and a sodium level is at 133. No other new complaints otherwise for now. The blood cultures have been negative. The proBNP level was 4210 at time of admission. Viral screen was negative. Rest of the medications remain unchanged. The patient is seen today November 20, 2024 in follow-up on the selective care unit. She is currently sitting up in bed. Awake and alert in no acute distress. Maintaining O2 saturations in the 90s on room air. Denies any worsening shortness of breath, cough or congestion. Blood culture revealed no growth. Glucose 113. She is continued on bronchodilators, steroids. NicoDerm patch in place. Remains on oral diuretics. Objective - Vital Signs Vital signs: Vital Signs Temp 98.3 F 11/20/24 11:05 Pulse 80 11/20/24 12:27 Resp 20 11/20/24 11:05 BP 152/71 11/20/24 11:05 Pulse Ox 100 11/20/24 11:05 FiO2 Intake & Output 11/19/24 11/20/24 11/20/24 18:59 06:59 18:59 Intake Total 620 10 550 Balance 620 10 550 Intake: IV 20 10 10 Invasive Line 2 20 10 10 Oral 600 540 Other: Voiding Method External Catheter Toilet Toilet - Exam GENERAL EXAM: Alert, active, 59-year-old female, on room air, comfortable in no apparent distress. HEAD: Normocephalic. EYES: Normal reaction of pupils, equal size. NOSE: Clear with pink turbinates. THROAT: No erythema or exudates. NECK: No masses, no JVD. CHEST: No chest wall deformity. LUNGS: Equal air entry with no crackles, wheeze, rhonchi or dullness. CVS: S1 and S2 normal with no audible murmur, regular rhythm. ABDOMEN: No hepatosplenomegaly, normal bowel sounds, no guarding or rigidity. SPINE: No scoliosis or deformity SKIN: No rashes CENTRAL NERVOUS SYSTEM: No focal deficits, tone is normal in all 4 extremities. EXTREMITIES: There is no peripheral edema. No clubbing, no cyanosis. Peripheral pulses are intact. - Labs CBC & Chem 7: 11/19/24 06:58 11/19/24 06:58 Labs: Abnormal Lab Results - Last 24 Hours (Table) 11/19/24 11/19/24 11/20/24 Range/Units 16:08 20:00 05:55 POC Glucose (mg/dL) 369 H 431 H 113 H (70-110) mg/dL 11/20/24 Range/Units 11:46 POC Glucose (mg/dL) 287 H (70-110) mg/dL Assessment and Plan Assessment: Acute COPD exacerbation, improving Non-ST elevation [place], status post heart catheterization done 11/16/2024, patient did receive PCI/stenting of the OM1. Acute dyspnea, secondary to above History of pulmonary adenocarcinoma, status post right sided video-assisted thorascopic surgery and right lower lobectomy on 09/29/2023. Recent chest CT done outpatient 09/18/2024 showing postsurgical changes of partial right lower lobectomy, previously seen spiculated 2.1 cm mass with cavitation in the right lower lobe nearly completely resolved. There was a small 7.5 mm residual nodule. New 5.4 mm nodule in the posterior right upper lobe. Disease recurrence cannot be excluded. Recommendation was for short-term follow-up given patient's history Former tobacco dependence, quitting 1 month ago History of pulmonary embolism, not currently on anticoagulation Diabetes mellitus type 1 Acute kidney injury, creatinine is improving Hyperkalemia, currently receiving Lokelma Anemia of chronic disease History of hypothyroidism History of multiple sclerosis Chronic lumbar back pain and moderate multilevel degeneration with for moderate to severe spinal canal stenosis at L3-L5 Obesity, with a BMI of 30.1 kg/m History of anxiety/depression Plan: The patient was seen and evaluated Labs and medications reviewed Stable and on room air Cleared for discharge Recommend Symbicort, albuterol HFA Complete a prednisone taper Follow-up in our office in 1 week I have personally seen and examined the patient, performed the documentation and the assessment and plan as written. Number of minutes spent on the visit: 10 Dictation was produced using [employer] dictation software. Please excuse any grammatical, word or spelling errors.
== END 2024-11-20 15:04 | disposition home or self-care (01) | DRG 321 ==
LOC: EC 18:29 → 3SCARD 19:52
PROVIDERS: ADMIT Hospitalist; ATTEND Hospitalist
PROC: B245ZZ3 Ultrasonography of Left Heart, Intravascular (ICD-10-PCS; 2024-11-16)
PROC: 027034Z Dilation of Coronary Artery, One Artery with Drug-eluting Intraluminal Device, Percutaneous Approach (ICD-10-PCS; principal; 2024-11-16 08:45)
PROC: B2111ZZ Fluoroscopy of Multiple Coronary Arteries using Low Osmolar Contrast (ICD-10-PCS; 2024-11-16 08:45)
PROC: 4A023N7 Measurement of Cardiac Sampling and Pressure, Left Heart, Percutaneous Approach (ICD-10-PCS; 2024-11-16 08:45)
DX: I21.4 Non-ST elevation (NSTEMI) myocardial infarction (principal); J18.9 Pneumonia, unspecified organism; N17.0 Acute kidney failure with tubular necrosis; I13.0 Hypertensive heart and chronic kidney disease with heart failure and stage 1 through stage 4 chronic kidney disease, or unspecified chronic kidney disease; J44.1 Chronic obstructive pulmonary disease with (acute) exacerbation; J44.0 Chronic obstructive pulmonary disease with (acute) lower respiratory infection; F17.210 Nicotine dependence, cigarettes, uncomplicated; E03.9 Hypothyroidism, unspecified; M19.90 Unspecified osteoarthritis, unspecified site; F32.A Depression, unspecified; F41.9 Anxiety disorder, unspecified; Z85.118 Personal history of other malignant neoplasm of bronchus and lung; D63.8 Anemia in other chronic diseases classified elsewhere; E10.22 Type 1 diabetes mellitus with diabetic chronic kidney disease; E10.42 Type 1 diabetes mellitus with diabetic polyneuropathy; E10.65 Type 1 diabetes mellitus with hyperglycemia; E66.9 Obesity, unspecified; E87.5 Hyperkalemia; G25.81 Restless legs syndrome; I25.10 Atherosclerotic heart disease of native coronary artery without angina pectoris; I25.2 Old myocardial infarction; I50.9 Heart failure, unspecified; K21.9 Gastro-esophageal reflux disease without esophagitis; K59.00 Constipation, unspecified; G40.909 Epilepsy, unspecified, not intractable, without status epilepticus; G35 Multiple sclerosis; G89.29 Other chronic pain; M48.061 Spinal stenosis, lumbar region without neurogenic claudication; N18.9 Chronic kidney disease, unspecified; T38.0X5A Adverse effect of glucocorticoids and synthetic analogues, initial encounter; Z68.30 Body mass index [BMI] 30.0-30.9, adult; Z79.02 Long term (current) use of antithrombotics/antiplatelets; Z79.4 Long term (current) use of insulin; Z79.51 Long term (current) use of inhaled steroids; Z79.82 Long term (current) use of aspirin; Z79.84 Long term (current) use of oral hypoglycemic drugs; Z79.890 Hormone replacement therapy; Z79.899 Other long term (current) drug therapy; Z82.49 Family history of ischemic heart disease and other diseases of the circulatory system; Z86.0100 Personal history of colon polyps, unspecified; Z86.711 Personal history of pulmonary embolism; Z90.2 Acquired absence of lung [part of]; Z98.1 Arthrodesis status
CPT/HCPCS: 36415; 70450; 71046; 76770; 80048; 80053; 81003; 83036; 83605; 83735; 83880; 84484; 85025; 85027; 85610; 85730; 87040; 87636; 92978; 93005; 93306; 93458; 94640; 94760; 96361; 96365; 96366; 96367; 96368; 96375; 96376; 99291

== ENCOUNTER 2024-12-07 22:58 | Inpatient (IN) | payer MEDICARE, OTHER ==
[2024-12-07 23:09] LABS: Glucose,Whole Blood 66 mg/dL (70-110)
[2024-12-07] MEDS: methylPREDNISolone SOD SUCCI 125 MG/2 ML VIAL IV STA (23:39)
[2024-12-07 23:54] LABS: Basophils % (A) 0 %; Eosinophils % (A) 0 %; HCT 30.7 % (34.0-46.0); Lymphocytes # (A) 1.9 k/uL (1.0-4.8); Lymphocytes % (A) 25 %; MCH 31.1 pg (25.0-35.0); MCHC 32.7 g/dL (31.0-37.0); Mean Platelet Volume 8.6; Monocytes # (A) 0.5 k/uL (0-1.0); Monocytes % (A) 6 %; Neutrophils # (A) 5.1 k/uL (1.3-7.7); Neutrophils % (A) 66 %; Platelet Count 312 k/uL (150-450); RBC 3.22 m/uL (3.80-5.40); RDW 13.1 % (11.5-15.5); WBC 7.7 k/uL (3.8-10.6)
[2024-12-07 23:58] LABS: ALT 23 U/L (4-34); AST 25 U/L (14-36); African American GFR (CKD) 43 (>60 ml/min/1.73 sqM); Albumin 3.7 g/dL (3.5-5.0); Alkaline Phosphatase 122 U/L (38-126); Anion Gap 11 mmol/L; Blood Urea Nitrogen 37 mg/dL (7-17); Carbon Dioxide 21 mmol/L (22-30); Chloride 103 mmol/L (98-107); Glucose 61 mg/dL (74-99); Magnesium 1.9 mg/dL (1.6-2.3); Non-African American GFR(CKD) 38 (>60 ml/min/1.73 sqM); Potassium 3.3 mmol/L (3.5-5.1); Sodium 135 mmol/L (137-145); Total Bilirubin 0.3 mg/dL (0.2-1.3); Total Protein 6.4 g/dL (6.3-8.2)
[2024-12-08 00:04] LABS: MCV 95.2 fL (80.0-100.0)
[2024-12-08 00:05] LABS: INR 0.9 (<1.2); Partial Thromboplastin Time 24.2 sec (22.0-30.0); Prothrombin Time 10.4 sec (10.0-12.5)
[2024-12-08 00:06] LABS: NT-Pro-B-Type Natriuretic Pept 2370 pg/mL
[2024-12-08] MEDS: IPRATROPIUM-ALBUTEROL 3 ML NEB INHALATION STA (00:10)
--- NOTE | 2024-12-08 01:02 | XR ---
EXAM: XR Chest, 2 Views CLINICAL HISTORY: ITS.REASON XR Reason: difficulty breathing TECHNIQUE: Frontal and lateral views of the chest. COMPARISON: No relevant prior studies available. FINDINGS: Lungs: Unremarkable. No consolidation. Pleural space: Unremarkable. No pneumothorax. Heart: Unremarkable. No cardiomegaly. Mediastinum: Unremarkable. Normal mediastinal contour. Bones/joints: Unremarkable. No acute fracture. IMPRESSION: Normal chest x-rays.
[2024-12-08] MEDS: FUROSEMIDE 10 MG/ML 4 ML VIAL IV STA (01:06)
[2024-12-08] MEDS ORDERED: ONDANSETRON 4 MG/2 ML VIAL IVP PRN (01:09)
[2024-12-08] MEDS ORDERED: NALOXONE 0.4 MG/ML 1 ML VIAL IV PRN (01:09)
--- NOTE | 2024-12-08 01:29 | ED ---
General Adult HPI - General Chief complaint: Shortness of Breath Stated complaint: MARY Time Seen by Provider: 12/07/24 23:25 Source: patient, EMS, RN notes reviewed, old records reviewed Mode of arrival: EMS - History of Present Illness Initial comments: Is a 59-year-old female presents emergency department complaining of dyspnea. Patient had a cardiac stent placed in October. Is due to have another cath and stent placed in a few days. States she has been having worsening shortness of breath for multiple days. Worse with exertion. Occasionally worse with lying down flat. Denies any worsening lower extremity edema. States she has been compliant with all of her medications. States her breathing treatments do seem to help somewhat. Is not normally on oxygen at home. Currently is not hypoxic. Denies any productive cough, fevers, chills. Denies abdominal pain, nausea, vomiting. Denies chest pain. Presents for further evaluation at this time. Patient is on aspirin and Brilinta. Past medical history includes CHF, COPD, diabetes, CAD with stent, thyroid disorder. - Related Data Home Medications Medication Instructions Recorded Confirmed Montelukast [Singulair] 10 mg PO DAILY 07/28/22 12/07/24 Albuterol Sulfate [Albuterol 2 puff INHALATION RT-Q6H PRN 09/27/23 12/07/24 Sulfate Hfa] Gabapentin [Neurontin] 800 mg PO TID 10/26/23 12/07/24 Insulin Aspart Prot/Insuln Asp See Protocol SQ BID 10/26/23 12/07/24 [NovoLOG MIX 70-30 Flexpen] cloNIDine HCL [Catapres] 0.3 mg PO HS 10/26/23 12/07/24 Albuterol Nebulized [Ventolin 2.5 mg INHALATION RT-Q4H PRN 11/15/24 12/07/24 Nebulized] Cyclobenzaprine [Flexeril] 10 mg PO TID PRN 11/15/24 12/07/24 HYDROcodone/APAP 5-325MG [[place] 1 tab PO TID PRN 11/15/24 12/07/24 5-325] Insulin Aspart [NovoLOG Flexpen] See Protocol SQ ACHS 11/15/24 12/07/24 Levothyroxine Sodium [Synthroid] 175 mcg PO DAILY 11/15/24 12/07/24 busPIRone HCL 15 mg PO BID PRN 11/15/24 12/07/24 diphenhydrAMINE [Benadryl] 25 mg PO DAILY PRN 11/15/24 12/07/24 rOPINIRole HCL [Requip] 2 mg PO HS 11/15/24 12/07/24 traMADol HCL 50 mg PO BID PRN 11/15/24 12/07/24 ARIPiprazole [Abilify] 5 mg PO HS 12/07/24 12/07/24 Insulin Glargine,Hum.rec.anlog 20 units SQ HS 12/07/24 12/07/24 [Lantus Solostar Pen] Previous Rx's Medication Instructions Recorded Benzonatate [Tessalon Perles] 100 mg PO TID PRN #20 cap 11/02/23 Aspirin 81 mg PO DAILY 30 Days #30 tab 11/20/24 Atorvastatin [Lipitor] 40 mg PO HS 30 Days #30 tab 11/20/24 Dapagliflozin Propanediol [Farxiga] 10 mg PO DAILY 30 Days #30 tab 11/20/24 Furosemide [Lasix] 40 mg PO DAILY 30 Days #30 tab 11/20/24 Ticagrelor [Brilinta] 90 mg PO BID 30 Days #60 tab 11/20/24 Allergies Allergy/AdvReac Type Severity Reaction Status Date / Time erythromycin base AdvReac Nausea & Verified 12/07/24 12:17 Vomiting Review of Systems ROS Statement: Those systems with pertinent positive or pertinent negative responses have been documented in the HPI. Review of Systems: CONST: Denies fever EYES: Denies blurry vision ENT: Denies nasal congestion C/V: Denies Chest pain RESP: Endorses shortness of breath GI: Denies abdominal pain : Denies dysuria SKIN: Denies rash. MSK: Denies joint pain. NEURO: Denies headache ROS Other: All systems not noted in ROS Statement are negative. Past Medical History Past Medical History: Cancer, COPD, Diabetes Mellitus, Eye Disorder, GERD/Reflux, Hypertension, Myocardial Infarction (NM), Musculoskeletal Disorder, Osteoarthritis (OA), Pneumonia, Pulmonary Embolus (PE), Seizure Disorder, Thyroid Disorder Additional Past Medical History / Comment(s): seizure disorder secondary to hypoglycemia, last seizure approx. year ago, hypothyroid, multiple sclerosis, diabetic peripheral neuropathy, optic neuritis, decreased vision in the eyes, restless leg syndrome, colon polyps, anxiety depression, Hx prob w/ cervical discs., DDD, hx. lung cancer 2022-had surg., PE 2022, recent adm. for pneumonia Last Myocardial Infarction Date:: unk History of Any Multi-Drug Resistant Organisms: None Reported Past Surgical History: Adenoidectomy, Appendectomy, Heart Catheterization With Stent, Orthopedic Surgery, Tonsillectomy, Tubal Ligation Additional Past Surgical History / Comment(s): Laparoscopies. Pain procedures., bronson. cataracts removed. right lower lobectomy,. cervical fusion,right ankle fusion Past Anesthesia/Blood Transfusion Reactions: Family History of Problems w/ Anesthesia, Motion Sickness Additional Past Anesthesia/Blood Transfusion Reaction / Comment(s): no blood transfusions, needs more than average amount of versed for it to work, mom used to wake up during surg. Date of Last Stent Placement:: 2023 Past Psychological History: Anxiety, Depression Smoking Status: Former smoker - Past Family History Mother Family Medical History: Myocardial Infarction (NM) Additional Family Medical History / Comment(s): Mother at age 48 from coronary artery disease. Patient does not have any brothers and sisters. She has one adult son with no major medical problems. General Exam - General Exam Comments Initial Comments: General: Appears in no acute distress. HEAD: Normal with no signs of head trauma. EYES: EOMI ENT: Hearing grossly intact, normal oropharynx. RESPIRATORY: Bilateral end expiratory wheezing. No hypoxia. No significant increased work of breathing. Decreased breath sounds in the right lower lung b ase. C/V: Regular rate and rhythm. S1 and S2 auscultated, no edema, peripheral pulses 2+ and intact throughout ABD: Abd is soft, nontender, nondistended EXT: No obvious deformity SKIN: No rashes or lesions observed on exposed skin. NEURO: Alert and oriented x 4 Course Vital Signs 12/07/24 12/08/24 12/08/24 23:06 00:10 00:23 Temperature 98.2 F Pulse Rate 70 70 70 Respiratory 18 Rate Blood Pressure 105/61 O2 Sat by Pulse 97 Oximetry Medical Decision Making - Medical Decision Making Was pt. sent in by a medical professional or institution (, PA, TUBE WASHER, urgent care, hospital, or [place] [facility] facility...) When possible be specific @ -No Did you speak to anyone other than the patient for history (EMS, parent, family, police, friend...)? What history was obtained from this source @ -No Did you review nursing and triage notes (agree or disagree)? Why? @ -I reviewed and agree with nursing and triage notes Were old charts reviewed (outside hosp., previous admission, EMS record, old EKG, old radiological studies, urgent care reports/EKG's, [place] [facility] facility records)? Report findings @ -Reviewed old charts from October 2024 including EKG. When compared with EKG from today, no obvious acute changes. Differential Diagnosis (chest pain, altered mental status, abdominal pain women, abdominal pain men, vaginal bleeding, weakness, fever, dyspnea, syncope, headache, dizziness, GI bleed, back pain, seizure, CVA, palpatations, mental health, musculoskeletal)? @ -Differential Dyspnea: Coronary syndrome, arrhythmia, tamponade, asthma, COPD, pulmonary embolism, pneumonia, pneumothorax, pulmonary effusion, anaphylaxis, diabetic ketoacidosis, flailed chest, pulmonary contusion, diaphragmatic rupture, anemia, neuromuscular, this is not meant to be an all-inclusive list. EKG interpreted by me (3pts min.). @ -As above X-rays interpreted by me (1pt min.). @ -Chest x-ray is interpreted by radiology showed no obvious acute process however on my interpretation, there is a persistent right-sided pleural effusion as well as some pulmonary vascular congestion present. CT interpreted by me (1pt min.). @ -None done U/S interpreted by me (1pt. min.). @ -None done What testing was considered but not performed or refused? (CT, X-rays, U/S, labs)? Why? @ -None What meds were considered but not given or refused? Why? @ -None Did you discuss the management of the patient with other professionals (professionals i.e. , PA, TUBE WASHER, lab, RT, psych nurse, social media senior associate, rand tacker, teacher, motor equipment commanding officer, case management rn)? Give summary @ -Discussed with admitting provider, Dr. Keen who accepted the admission. Was smoking cessation discussed for >3mins.? @ -No Was critical care preformed (if so, how long)? @ -No Were there social determinants of health that impacted care today? How? (Homelessness, low income, unemployed, alcoholism, drug addiction, transportation, low edu. Level, literacy, decrease access to med. care, custodial, rehab)? @ -No Was there de-escalation of care discussed even if they declined (Discuss DNR or withdrawal of care, Hospice)? DNR status @ -No What co-morbidities impacted this encounter? (DM, HTN, Smoking, COPD, CAD, Cancer, CVA, ARF, Chemo, Hep., AIDS, mental health diagnosis, sleep apnea, morbi d obesity)? @ -CHF, CAD, COPD Was patient admitted / discharged? Hospital course, mention meds given and route, prescriptions, significant lab abnormalities, going to OR and other pertinent info. @ -Patient presents emergency department with progressively worsening dyspnea over the last few days. Patient is wheezy. She does have a history of CHF as well. We will obtain cardiopulmonary workup. Recent stent is due for stenting in a few days. Vitals are within acceptable limits. EKG shows no signs of acute ischemia. Patient was given aspirin. Patient given a breathing treatment as well as IV steroids. Breathing is improved. No hypoxia. Vital signs are within acceptable limits. Labs returned remarkable for a hypokalemia 3.3 which was replenished. Patient is hypoglycemic however following fluid it is improved on her own monitor into the 100s. Troponin is indeterminate at 0.028. BNP is elevated to 2300. Viral swabs are negative. Chest x-ray reveals mild pulmonary vascular congestion as well as a persistent right-sided pleural effusion. On reevaluation, patient is resting comfortably. Due to her being due for a heart catheterization on December 09 per patient, as well as her symptoms we will observe the patient overnight and have cardiology and pulmonology evaluate her. She was in agreement this plan. Will continue with IV Lasix as well as IV steroids and breathing treatments. Troponins will be trended. Patient was in agreement with this plan. I spoke with the admitting provider, Dr. Keen who accepted the admission. Undiagnosed new problem with uncertain prognosis? @ -No Drug Therapy requiring intensive monitoring for toxicity (Heparin, Nitro, Insuli n, Cardizem)? @ -No Were any procedures done? @ -No Diagnosis/symptom? @ -Dyspnea, COPD, CHF Acute, or Chronic, or Acute on Chronic? @ -Acute on chronic Uncomplicated (without systemic symptoms) or Complicated (systemic symptoms)? @ -Complicated Side effects of treatment? @ -No Exacerbation, Progression, or Severe Exacerbation? @ -No Poses a threat to life or bodily function? How? (Chest pain, [place], NM, pneumonia, PE, COPD, DKA, ARF, appy, cholecystitis, CVA, Diverticulitis, Homicidal, Miguelina cidal, threat to staff... and all critical care pts) @ -Yes - Lab Data Result diagrams: 12/07/24 23:08 12/07/24 23:08 Lab Results 12/07/24 12/07/24 12/07/24 Range/Units 23:08 23:08 23:08 WBC 7.7 (3.8-10.6) k/uL RBC 3.22 L (3.80-5.40) m/uL Hgb 10.0 L (11.4-16.0) gm/dL Hct 30.7 L (34.0-46.0) % MCV 95.2 D (80.0-100.0) fL MCH 31.1 (25.0-35.0) pg MCHC 32.7 (31.0-37.0) g/dL RDW 13.1 (11.5-15.5) % Plt Count 312 (150-450) k/uL MPV 8.6 Neutrophils % 66 % Lymphocytes % 25 % Monocytes % 6 % Eosinophils % 0 % Basophils % 0 % Neutrophils # 5.1 (1.3-7.7) k/uL Lymphocytes # 1.9 (1.0-4.8) k/uL Monocytes # 0.5 (0-1.0) k/uL Eosinophils # 0.0 (0-0.7) k/uL Basophils # 0.0 (0-0.2) k/uL PT 10.4 (10.0-12.5) sec INR 0.9 (<1.2) APTT 24.2 (22.0-30.0) sec Sodium (137-145) mmol/L Potassium (3.5-5.1) mmol/L Chloride (98-107) mmol/L Carbon Dioxide (22-30) mmol/L Anion Gap mmol/L BUN (7-17) mg/dL Creatinine (0.52-1.04) mg/dL Est GFR (CKD-EPI)AfAm (>60 ml/min/1.73 sqM) Est GFR (CKD-EPI)NonAf (>60 ml/min/1.73 sqM) Glucose (74-99) mg/dL POC Glucose (mg/dL) 66 L (70-110) mg/dL POC Glu Equip Maint Eng HE Stahl Calcium (8.4-10.2) mg/dL Magnesium (1.6-2.3) mg/dL Total Bilirubin (0.2-1.3) mg/dL AST (14-36) U/L ALT (4-34) U/L Alkaline Phosphatase (38-126) U/L Troponin I (0.000-0.034) ng/mL NT-Pro-B Natriuret Pep pg/mL Total Protein (6.3-8.2) g/dL Albumin (3.5-5.0) g/dL Influenza Type A (PCR) (Not Detectd) Influenza Type B (PCR) (Not Detectd) RSV (PCR) (Not Detectd) SARS-CoV-2 (PCR) (Not Detectd) 12/07/24 12/07/24 12/07/24 Range/Units 23:08 23:08 23:41 WBC (3.8-10.6) k/uL RBC (3.80-5.40) m/uL Hgb (11.4-16.0) gm/dL Hct (34.0-46.0) % MCV (80.0-100.0) fL MCH (25.0-35.0) pg MCHC (31.0-37.0) g/dL RDW (11.5-15.5) % Plt Count (150-450) k/uL MPV Neutrophils % % Lymphocytes % % Monocytes % % Eosinophils % % Basophils % % Neutrophils # (1.3-7.7) k/uL Lymphocytes # (1.0-4.8) k/uL Monocytes # (0-1.0) k/uL Eosinophils # (0-0.7) k/uL Basophils # (0-0.2) k/uL PT (10.0-12.5) sec INR (<1.2) APTT (22.0-30.0) sec Sodium 135 L (137-145) mmol/L Potassium 3.3 L (3.5-5.1) mmol/L Chloride 103 (98-107) mmol/L Carbon Dioxide 21 L (22-30) mmol/L Anion Gap 11 mmol/L BUN 37 H (7-17) mg/dL Creatinine 1.50 H (0.52-1.04) mg/dL Est GFR (CKD-EPI)AfAm 43 (>60 ml/min/1.73 sqM) Est GFR (CKD-EPI)NonAf 38 (>60 ml/min/1.73 sqM) Glucose 61 L (74-99) mg/dL POC Glucose (mg/dL) (70-110) mg/dL POC Glu Equip Maint Eng ID Calcium 9.0 (8.4-10.2) mg/dL Magnesium 1.9 (1.6-2.3) mg/dL Total Bilirubin 0.3 (0.2-1.3) mg/dL AST 25 (14-36) U/L ALT 23 (4-34) U/L Alkaline Phosphatase 122 (38-126) U/L Troponin I 0.028 (0.000-0.034) ng/mL NT-Pro-B Natriuret Pep 2370 pg/mL Total Protein 6.4 (6.3-8.2) g/dL Albumin 3.7 (3.5-5.0) g/dL Influenza Type A (PCR) Not Detected (Not Detectd) Influenza Type B (PCR) Not Detected (Not Detectd) RSV (PCR) Not Detected (Not Detectd) SARS-CoV-2 (PCR) Not Detected (Not Detectd) - EKG Data -: EKG Interpreted by Me EKG Comments: 12-lead Electrocardiogram Interpretation Note EKG was reviewed and interpreted by myself. 12-lead ECG performed at 2303 is int erpreted by me as revealing normal sinus rhythm at a rate of 71 beats per minute. [place] is normal. NC interval is 131 ms, QRS duration is 93 ms, QTc is 431 ms.. There were no ST or T wave abnormalities to suggest myocardial ischemia or injury. R wave progression across the precordium was delayed. By my interpretation this EKG is non-diagnostic for acute ischemia. Compared with EKG from November 17, 2024 with no obvious acute dynamic changes. Appears extremely similar to the EKG from that time. Disposition Clinical Impression: CHF (congestive heart failure), COPD (chronic obstructive pulmonary disease), Dyspnea Disposition: ADMITTED IP TO THIS HOSP Condition: Stable Referrals: Ryan Pino MD [Primary Care Provider] - 1-2 days Time of Disposition: 01:00
[2024-12-08] MEDS: POTASSIUM CHLORIDE ER 20 MEQ TAB.ER PO STA (01:48)
[2024-12-08] MEDS: ASPIRIN 81 MG PO STA (01:48)
[2024-12-08] MEDS ORDERED: IPRATROPIUM-ALBUTEROL 3 ML NEB INHALATION PRN (03:49)
[2024-12-08] MEDS ORDERED: IPRATROPIUM-ALBUTEROL 3 ML NEB INHALATION SCH (04:00)
[2024-12-08] MEDS: IPRATROPIUM-ALBUTEROL 3 ML NEB INHALATION SCH ×2 (08:17→12:03)
[2024-12-08] MEDS: methylPREDNISolone SOD SUCCI 40 MG/ML 1 ML VIAL IV SCH (09:00)
[2024-12-08] MEDS: TICAGRELOR 90 MG TAB PO SCH (09:00)
[2024-12-08] MEDS: ASPIRIN 81 MG PO SCH (09:00)
[2024-12-08] MEDS: FUROSEMIDE 10 MG/ML 4 ML VIAL IV SCH (09:00)
[2024-12-08] MEDS ORDERED: ALBUTEROL HFA INHALER INHALATION PRN (09:13)
[2024-12-08] MEDS ORDERED: DEXTROSE 50% SYRINGE 50 ML IVP PRN ×4 (09:15→13:36)
[2024-12-08 09:26] LABS: Glucose,Whole Blood >600 mg/dL (70-110)
[2024-12-08] MEDS: INSULIN ASPART (NovoLOG) 100 UNIT/ML VIAL SQ SCH (09:42)
[2024-12-08] MEDS: ENOXAPARIN 40 MG/0.4 ML SYRINGE SQ SCH (09:44)
[2024-12-08] MEDS: GABAPENTIN 400 MG CAP PO SCH (09:45)
[2024-12-08] MEDS: LEVOTHYROXINE 88 MCG TAB PO SCH (09:46)
[2024-12-08] MEDS: METOPROLOL TARTRATE 12.5 MG TAB PO SCH (09:46)
[2024-12-08] MEDS: MONTELUKAST 10 MG TAB PO SCH (09:46)
[2024-12-08] MEDS: DAPAGLIFLOZIN PROPANEDIOL 10 MG TABLET PO SCH (09:46)
[2024-12-08] MEDS: PANTOPRAZOLE 40 MG TABLET PO SCH (09:46)
[2024-12-08] MEDS: INSULIN ASPART (NovoLOG) 100 UNIT/ML VIAL SQ ONE (10:40)
[2024-12-08 10:50] LABS: Glucose,Whole Blood 589 mg/dL (70-110)
[2024-12-08] MEDS: INSULN ASP PRT/INSULIN ASPART 100 UNIT/ML 10 ML VIAL SQ SCH (11:23)
[2024-12-08] MEDS: HYDROcodone/APAP 5-325MG 1 EACH TAB PO PRN (11:24)
[2024-12-08] MEDS: INSULIN DETEMIR (LEVEMIR) 100 UNIT/ML SYR SQ SCH (11:24)
[2024-12-08] MEDS: BENZONATATE 100 MG CAP PO PRN (11:25)
--- NOTE | 2024-12-08 11:36 | P.CRDCN ---
History of Present Illness Consult date: 12/08/24 Consult reason: chest pain History of present illness: This is a 59-year-old female patient of Dr. Harris with past medical history of diabetes mellitus type I, hypertension, COPD, hypothyroidism, multiple sclerosis, pulmonary adenocarcinoma status post right-sided VATS with right lower lobectomy September 2023, small subsegmental right-sided pulmonary emboli 10/2023, history of tobacco use and dependence. Patient had a recent hospitalization in October and was seen by county adviser at that time for NSTEMI status post PCI of the OM1 on 11/16/2024. Patient was also treated for COPD exacerbation and pneumonia on that hospitalization. Patient had a follow-up appointment with Dr. Harris on November 30 and plan was to continue current medical regime, scheduled coronary angiogram due to the nature of her symptoms and known intermediate to severe disease involving the LAD and possibly doing IFR of the LAD on 12/11/2024. We have been asked to evaluate the patient for chest pain. Patient complains of difficulty in breathing with minimal exertion. No increased wheezing. She states it started a couple nights ago. She is not on home oxygen. She states she has had some cough but usually is after a nebulizer treatment. She denies any sputum production. She last saw her pulmonary doctor, Dr. Garcia, last month. Patient is seen today in the emergency center waiting for a bed on the observation unit. Blood pressure 123/63, heart rate 88, pulse ox 100% on 2 L nasal cannula. Patient has been started on IV Lasix 40 mg every 12 hours -EKG: Sinus rhythm with low voltage, poor R wave progression, no acute ST changes. -Chest x-ray: No acute process. -CT brain: No acute intracranial hemorrhage or midline shift. Chronic small vessel ischemic changes. No acute process. -Laboratory studies: WBC 7.7, hemoglobin 10, BUN 37 and creatinine 1.5, potassium 3.3, glucose greater than 600, troponin negative x 3. proBNP 2370. -Home cardiac medications: Aspirin 81 mg daily, atorvastatin 40 mg at bedtime, clonidine 0.3 mg at bedtime, Farxiga 10 mg daily, Lasix 40 mg daily, Lopressor 12.5 mg twice daily, Brilinta 90 mg twice daily, also on levothyroxine -Echocardiogram performed on 10/2024: Normal LV systolic function. -Cardiac catheterization performed 11/16/[address] Harris revealed subtotal occluded OM1 status post PCI of OM1, intermediate disease of the mid LAD with hazy calcified lesion, normal left-sided filling pressures. Review Of Systems: At the time of my exam: CONSTITUTIONAL: Denies fever or chills. HEENT: Denies blurred vision, vision changes, or eye pain. Denies hemoptysis CARDIOVASCULAR: Denies chest pain. Denies orthopnea. Denies PND. Denies palpitations RESPIRATORY: Reports dyspnea on exertion shortness of breath. GASTROINTESTINAL: Denies abdominal pain. Denies nausea or vomiting. HEMATOLOGIC: Denies bleeding disorders. GENITOURINARY: Denies any blood in urine. SKIN: Denies puritis. Denies rash. Physical examination: Gen: This is a 59-year-old female in no acute distress VS: reviewed HEENT: Head is atraumatic, normocephalic. Pupils equal, round. Sclerae is anicteric. NECK: Supple. No JVD. LUNGS: Bilateral expiratory wheeze. No intercostal retractions. HEART: Regular rate and rhythm. Systolic murmur. ABDOMEN: Soft No tenderness. EXTREMITIES: No pedal edema. No calf tenderness. NEUROLOGICAL: Patient is awake, alert and oriented x3. Assessment: Atypical chest pain, acute coronary syndrome ruled out Acute kidney injury, mild COPD exacerbation Recent NSTEMI status post PCI of OM1 on 11/16/2024 History of adenocarcinoma of the lung Diabetes mellitus type 1 Hypertension Hypothyroidism MS History of PE 10/2023 Tobacco use and dependence, patient quit 3 months ago Plan: Resume patient's home cardiac medications with the following changes: Reduce Lasix p.o. to 20 mg daily, discontinue IV Lasix Add Aldactone 12.5 mg for low potassium Discussed case with Dr. Keen with plan to improve pulmonary status and probable discharge over the weekend. Patient will keep her appointment on Wednesday for cardiac catheterization. Cardiology will sign off this case and follow on an as-needed basis. Please reconsult for any new concerns. Thank you kindly for this consultation. Nurse practitioner note has been reviewed, I agree with documented findings and plan of care. Patient was seen and examined. 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 year ago, hypothyroid, multiple sclerosis, diabetic peripheral neuropathy, optic neuritis, decreased vision in the eyes, restless leg syndrome, colon polyps, anxiety depression, Hx prob w/ cervical discs., DDD, hx. lung cancer 2022-had surg., PE 2022, recent adm. for pneumonia Last Myocardial Infarction Date:: unk History of Any Multi-Drug Resistant Organisms: None Reported Past Surgical History: Adenoidectomy, Appendectomy, Heart Catheterization With Stent, Orthopedic Surgery, Tonsillectomy, Tubal Ligation Additional Past Surgical History / Comment(s): Laparoscopies. Pain procedures., bronson. cataracts removed. right lower lobectomy,. cervical fusion,right ankle fusion Past Anesthesia/Blood Transfusion Reactions: Family History of Problems w/ Anesthesia, Motion Sickness Additional Past Anesthesia/Blood Transfusion Reaction / Comment(s): no blood transfusions, needs more than average amount of versed for it to work, mom used to wake up during surg. Date of Last Stent Placement:: 2023 Past Psychological History: Anxiety, Depression Smoking Status: Former smoker - Past Family History Mother Family Medical History: Myocardial Infarction ([place]) Additional Family Medical History / Comment(s): Mother at age 48 from coronary artery disease. Patient does not have any brothers and sisters. She has one adult son with no major medical problems. Medications and Allergies Home Medications Medication Instructions Recorded Confirmed Type Montelukast [Singulair] 10 mg PO DAILY 07/28/22 12/08/24 History Albuterol Sulfate [Albuterol 2 puff INHALATION RT-Q6H PRN 09/27/23 12/08/24 History Sulfate Hfa] Gabapentin [Neurontin] 800 mg PO TID 10/26/23 12/08/24 History Insulin Aspart Prot/Insuln Asp 10 unit SQ W/SUPPER 10/26/23 12/08/24 History [NovoLOG MIX 70-30 Flexpen] cloNIDine HCL [Catapres] 0.3 mg PO HS 10/26/23 12/08/24 History Benzonatate [Tessalon Perles] 100 mg PO TID PRN #20 cap 11/02/23 12/08/24 Rx Albuterol Nebulized [Ventolin 2.5 mg INHALATION RT-Q4H PRN 11/15/24 12/08/24 History Nebulized] Cyclobenzaprine [Flexeril] 10 mg PO TID PRN 11/15/24 12/08/24 History HYDROcodone/APAP 5-325MG [[facility] 1 tab PO TID PRN 11/15/24 12/08/24 History 5-325] Insulin Aspart [NovoLOG Flexpen] See Protocol SQ ACHS 11/15/24 12/08/24 History Levothyroxine Sodium [Synthroid] 175 mcg PO DAILY 11/15/24 12/08/24 History busPIRone HCL 15 mg PO BID PRN 11/15/24 12/08/24 History diphenhydrAMINE [Benadryl] 25 mg PO DAILY PRN 11/15/24 12/08/24 History rOPINIRole HCL [Requip] 2 mg PO HS 11/15/24 12/08/24 History traMADol HCL 50 mg PO BID PRN 11/15/24 12/08/24 History Aspirin 81 mg PO DAILY 30 Days #30 tab 11/20/24 12/08/24 Rx Atorvastatin [Lipitor] 40 mg PO HS 30 Days #30 tab 11/20/24 12/08/24 Rx Dapagliflozin Propanediol [Farxiga] 10 mg PO DAILY 30 Days #30 tab 11/20/24 12/08/24 Rx Furosemide [Lasix] 40 mg PO DAILY 30 Days #30 tab 11/20/24 12/08/24 Rx Ticagrelor [Brilinta] 90 mg PO BID 30 Days #60 tab 11/20/24 12/08/24 Rx ARIPiprazole [Abilify] 5 mg PO HS 12/07/24 12/08/24 History Insulin Glargine,Hum.rec.anlog 20 units SQ DAILY 12/07/24 12/08/24 History [Lantus Solostar Pen] Insulin Aspart Prot/Insuln Asp 12 unit SQ W/BRKFST 12/08/24 12/08/24 History [NovoLOG MIX 70-30 Flexpen] Metoprolol Tartrate [Lopressor] 12.5 mg PO BID 12/08/24 12/08/24 History Pantoprazole Sodium [Protonix] 40 mg PO DAILY 12/08/24 12/08/24 History Allergies Allergy/AdvReac Type Severity Reaction Status Date / Time erythromycin base AdvReac Nausea & Verified 12/08/24 08:53 Vomiting Physical Exam Vitals: Vital Signs Temp Pulse Resp BP Pulse Ox 12/08/24 09:08 88 18 123/63 100 12/08/24 08:51 96 12/08/24 08:31 88 12/08/24 08:19 84 12/08/24 06:00 74 18 117/65 98 12/08/24 04:00 71 18 101/54 97 12/08/24 03:00 71 18 125/55 95 12/08/24 01:51 80 18 100/62 98 12/08/24 00:23 70 12/08/24 00:10 70 12/07/24 23:06 98.2 F 70 18 105/61 97 Intake and Output 12/07/24 12/08/24 12/08/24 22:59 06:59 14:59 Other: Weight 67.132 kg Results 12/07/24 23:08 12/07/24 23:08 Cardiac Enzymes 12/07/24 12/07/24 12/08/24 Range/Units 23:08 23:08 03:03 AST 25 (14-36) U/L Troponin I 0.028 0.026 (0.000-0.034) ng/mL 12/08/24 Range/Units 05:33 AST (14-36) U/L Troponin I 0.017 (0.000-0.034) ng/mL Coagulation 12/07/24 Range/Units 23:08 PT 10.4 (10.0-12.5) sec APTT 24.2 (22.0-30.0) sec CBC 12/07/24 Range/Units 23:08 WBC 7.7 (3.8-10.6) k/uL RBC 3.22 L (3.80-5.40) m/uL Hgb 10.0 L (11.4-16.0) gm/dL Hct 30.7 L (34.0-46.0) % Plt Count 312 (150-450) k/uL Comprehensive Metabolic Panel 12/07/24 Range/Units 23:08 Sodium 135 L (137-145) mmol/L Potassium 3.3 L (3.5-5.1) mmol/L Chloride 103 (98-107) mmol/L Carbon Dioxide 21 L (22-30) mmol/L BUN 37 H (7-17) mg/dL Creatinine 1.50 H (0.52-1.04) mg/dL Glucose 61 L (74-99) mg/dL Calcium 9.0 (8.4-10.2) mg/dL AST 25 (14-36) U/L ALT 23 (4-34) U/L Alkaline Phosphatase 122 (38-126) U/L Total Protein 6.4 (6.3-8.2) g/dL Albumin 3.7 (3.5-5.0) g/dL Current Medications Generic Name Dose Route Start Last Admin Trade Name Freq PRN Reason Stop Dose Admin Hydrocodone Bitart/Acetaminophen 1 each 12/08/24 09:13 Hydrocodone/Apap 5-325mg 1 Each Tab PO TID PRN pain Albuterol Sulfate 2.5 mg 12/08/24 09:13 Albuterol Nebulized 2.5 Mg/3 Ml INHALATION RT-Q4H PRN Shortness Of Breath Albuterol/Ipratropium 3 ml 12/08/24 08:00 12/08/24 08:17 Ipratropium-Albuterol 3 Ml Neb INHALATION 3 ml RT-QID MARIS Administration Albuterol/Ipratropium 3 ml 12/08/24 03:49 Ipratropium-Albuterol 3 Ml Neb INHALATION RT-Q2H PRN Shortness Of Breath Or Wheezing Aripiprazole 5 mg 12/08/24 21:00 Aripiprazole 5 Mg Tab PO HS MARIS Aspirin 81 mg 12/08/24 09:00 12/08/24 09:00 Aspirin 81 Mg PO 81 mg DAILY MARIS Administration Atorvastatin Calcium 40 mg 12/08/24 21:00 Atorvastatin 40 Mg Tab PO HS MARIS Benzonatate 100 mg 12/08/24 09:13 Benzonatate 100 Mg Cap PO TID PRN Cough Buspirone HCl 15 mg 12/08/24 09:13 Buspirone Hcl 5 Mg Tab PO BID PRN Anxiety Clonidine 0.3 mg 12/08/24 21:00 Clonidine Hcl 0.1 Mg Tab PO HS MARIS Cyclobenzaprine HCl 10 mg 12/08/24 09:13 Cyclobenzaprine 10 Mg Tab PO TID PRN Muscle Spasm Dapagliflozin 10 mg 12/08/24 09:15 Dapagliflozin Propanediol 10 Mg Tablet PO DAILY [facility] Dextrose/Water 25 ml 12/08/24 09:15 Dextrose 50% Syringe 50 Ml IVP PER PROTOCOL PRN Hypoglycemia Protocol Dextrose/Water 50 ml 12/08/24 09:15 Dextrose 50% Syringe 50 Ml IVP PER PROTOCOL PRN Hypoglycemia Protocol Diphenhydramine HCl 25 mg 12/08/24 09:13 Diphenhydramine 25 Mg Cap PO DAILY PRN Allergy Symptoms Enoxaparin Sodium 40 mg 12/08/24 09:30 Enoxaparin 40 Mg/0.4 Ml Syringe SQ DAILY [facility] Furosemide 40 mg 12/08/24 09:00 12/08/24 09:00 Furosemide 10 Mg/Ml 4 Ml Vial IV 40 mg Q12HR MARIS Administration Gabapentin 800 mg 12/08/24 09:15 Gabapentin 400 Mg Cap PO TID [facility] Insulin Aspart 0 unit 12/08/24 09:15 Insulin Aspart (Novolog) 100 Unit/Ml Vial SQ ACHS [facility] Protocol Insulin Detemir 20 unit 12/08/24 21:00 Insulin Detemir (Levemir) 100 Unit/Ml Syr SQ HS [facility] Levothyroxine Sodium 176 mcg 12/08/24 09:15 Levothyroxine 88 [place] [address] [facility] Methylprednisolone Sodium Succinate 40 mg 12/08/24 09:00 12/08/24 09:00 Methylprednisolone Sod Succi 40 Mg/Ml 1 Ml Vial IV 40 mg Q12HR MARIS Administration Metoprolol Tartrate 12.5 mg 12/08/24 09:15 Metoprolol Tartrate 12.5 Mg Tab PO BID [facility] Montelukast Sodium 10 mg 12/08/24 09:15 Montelukast 10 Mg Tab PO DAILY [facility] Naloxone HCl 0.2 mg 12/08/24 01:09 Naloxone 0.4 Mg/Ml 1 Ml Vial IV Q2M PRN Opioid Reversal Ondansetron HCl 4 mg 12/08/24 01:09 Ondansetron 4 Mg/2 Ml Vial IVP Q8HR PRN Nausea And Vomiting Pantoprazole Sodium 40 mg 12/08/24 09:15 Pantoprazole 40 Mg Tablet PO DAILY [facility] Ropinirole HCl 2 mg 12/08/24 21:00 Ropinirole Hcl 1 Mg Tab PO HS [facility] Ticagrelor 90 mg 12/08/24 09:00 12/08/24 09:00 Ticagrelor 90 Mg Tab PO 90 mg BID MARIS Administration Intake and Output 12/07/24 12/08/24 12/08/24 22:59 06:59 14:59 Other: Weight 67.132 kg 12/07/24 23:08 12/07/24 23:08
[2024-12-08] MEDS: FORMOTEROL FUMARATE 20 MCG/2 ML NEBU INHALATION SCH (12:05)
[2024-12-08] MEDS: BUDESONIDE 1 MG/2 ML NEBU INHALATION SCH (12:05)
[2024-12-08 13:01] LABS: Glucose,Whole Blood 531 mg/dL (70-110)
[2024-12-08] MEDS ORDERED: Potassium Replacement Protocol 1 EACH MISC MISCELLANE PRN (13:54)
[2024-12-08] MEDS ORDERED: Magnesium Replacement Protocol 1 EACH MISC MISCELLANE PRN (13:54)
[2024-12-08] MEDS: INSULIN REGULAR 100 UNIT in SODIUM CHLORIDE 0.9% 100 ML IV SCH (14:21)
[2024-12-08] MEDS: SODIUM CHLORIDE 0.9% 1,000 ML IV SCH (14:24)
[2024-12-08] MEDS: SPIRONOLACTONE 25 MG TAB PO SCH (14:26)
[2024-12-08] MEDS: CYCLOBENZAPRINE 10 MG TAB PO PRN (14:27)
[2024-12-08 14:32] LABS: VBG PH 7.38 (7.31-7.41)
[2024-12-08] MEDS ORDERED: POTASSIUM CHLORIDE ER 20 MEQ TAB.ER PO SCH (15:00)
[2024-12-08 15:13] LABS: African American GFR (CKD) 38 (>60 ml/min/1.73 sqM); Anion Gap 16 mmol/L; Blood Urea Nitrogen 52 mg/dL (7-17); Calcium 9.2 mg/dL (8.4-10.2); Carbon Dioxide 20 mmol/L (22-30); Chloride 95 mmol/L (98-107); Glucose 445 mg/dL (74-99); Magnesium 1.9 mg/dL (1.6-2.3); Non-African American GFR(CKD) 33 (>60 ml/min/1.73 sqM); Phosphorus 5.8 mg/dL (2.5-4.5); Potassium 4.4 mmol/L (3.5-5.1); Sodium 131 mmol/L (137-145)
--- NOTE | 2024-12-08 15:26 | P.HPIM ---
History of Present Illness H&P Date: 12/08/24 Chief Complaint: Short of breath This is a pleasant 59-year-old patient, follows with Dr. Ryan Pino. Extensive medical history to include COPD, diabetes, hypertension, osteoarthritis, hypothyroid, previous seizure disorder from hypoglycemia, multiple sclerosis, diabetic peripheral neuropathy, optic neuritis, restless leg syndrome anxiety depression. Right lower lobe lobectomy for localized adenocarcinoma in September 2023. Patient smoking until up to a month ago. Patient present increasing shortness of breath for last 2 days. Really could n ot get her breath. No cough no edema. No fever no chills. Just very short of breath. No edema. Patient Accu-Cheks running high this morning. In 400s. Patient's home insulin dose was not correct that was fixed. Patient underwent successful angioplasty stent to OM1 by Dr. Harris in November 16. Was scheduled this coming Wednesday for another cardiac cath by Dr. Harris. Review of systems: GEN.: Tired EYES: None HEENT: None NECK: None RESPIRATORY: [As above CARDIOVASCULAR: No chest pain, no edema GASTROINTESTINAL: None GENITOURINARY: None MUSCULOSKELETAL: Joint pains LYMPHATICS: None HEMATOLOGICAL: None PSYCHIATRY: Bit anxious NEUROLOGICAL: None Past medical history to include: COPD, diabetes, GERD, osteoarthritis, seizure disorder, hypothyroid, multiple sclerosis, diabetic peripheral neuropathy, optic neuritis, decreased vision in the eyes,;, restless leg syndrome, colon polyps, anxiety depression Social history: started smoking in 1978. Half a pack a day. Stopped in October 2024. She was drinking heavy alcohol up to about 2017. Has a roommate Aubree. Occasionally does marijuana. Does use a cane Physical examination: VITAL SIGNS: Afebrile, 74, 18, 117 x 65, 98% room air GENERAL: BMI 28.9, reclining in bed a bit short of breath EYES: Pupils equal. Conjunctiva normal. HEENT: External appearance of nose and ears normal, oral cavity grossly normal. NECK: JVD not raised; masses not palpable. HEART: First and second heart sounds are normal; no edema. LUNGS: Respiratory rate increased; diminished breath sounds, prolonged expiration wheezing. Some expiratory mild crackles ABDOMEN: Soft, nontender, liver spleen not palpable, no masses palpable. PSYCH: [Alert and oriented x3; mood and affect anxious LYMPHATICS: No lymph nodes palpable neck and axilla NEUROLOGICAL: Cranial nerves grossly intact. Poor sensation grossly intact INVESTIGATIONS, reviewed in the clinical context: December 07: White count 7.7 hemoglobin 10 platelets 312 sodium 135 potassium 3.3 BUN 37 creatinine 1.5 Initial glucose 66 yesterday. Today greater than 600 Troponin I 0.028, 0.026, 0.017 Influenza type A, type B, RSV, COVID-19: Not detected EKG tracing personally reviewed by me-normal sinus rhythm. Chest x-ray film personally reviewed by me-lung berry clear Assessment and plan: -Acute severe COPD exacerbation in a recent smoker's been smoking for a long time. DuoNeb Q4. Nebulized Pulmicort. Nebulized Perforomist. -October 2024: Acute non-ST elevation myocardial infarction Successful angioplasty stent to OM1 by Dr. Harris-November 16 Aspirin. Brilinta -History of adeno carcinoma of the right lower lobe. Right lower lobe lobectomy September 2023 -Chronic arthritis multiple joints specially lumbar spine. Due for surgery. Ultram 50 mg twice daily. Neurontin. Flexeril as needed. -Diabetes mellitus type 2, chronically on insulin. . Uncontrolled with hy perglycemia. Start insulin drip -Diabetic peripheral neuropathy Neurontin 800 mg 3 times daily -Hypothyroid Synthroid 176 mcg -GERD Pepcid -Restless leg syndrome requip 2 mg every daily at bedtime -Anxiety depression BuSpar -Full code Cardiology was consulted. Pulmonary consulted. Home medications resumed. Discussed with Dr. Sutherland from cardiology. Not for any further intervention from them currently. Do not feel this presentation is cardiac. 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 year ago, hypothyroid, multiple sclerosis, diabetic peripheral neuropathy, optic neuritis, decreased vision in the eyes, restless leg syndrome, colon polyps, anxiety depression, Hx prob w/ cervical dis cs., DDD, hx. lung cancer 2022-had surg., PE 2022, recent adm. for pneumonia Last Myocardial Infarction Date:: unk History of Any Multi-Drug Resistant Organisms: None Reported Past Surgical History: Adenoidectomy, Appendectomy, Heart Catheterization With Stent, Orthopedic Surgery, Tonsillectomy, Tubal Ligation Additional Past Surgical History / Comment(s): Laparoscopies. Pain procedures., bronson. cataracts removed. right lower lobectomy,. cervical fusion,right ankle fusion Past Anesthesia/Blood Transfusion Reactions: Family History of Problems w/ Anesthesia, Motion Sickness Additional Past Anesthesia/Blood Transfusion Reaction / Comment(s): no blood transfusions, needs more than average amount of versed for it to work, mom used to wake up during surg. Date of Last Stent Placement:: 2023 Past Psychological History: Anxiety, Depression Smoking Status: Former smoker - Past Family History Mother Family Medical History: Myocardial Infarction ([place]) Additional Family Medical History / Comment(s): Mother at age 48 from coronary artery disease. Patient does not have any brothers and sisters. She has one adult son with no major medical problems. Medications and Allergies Home Medications Medication Instructions Recorded Confirmed Type Montelukast [Singulair] 10 mg PO DAILY 07/28/22 12/08/24 History Albuterol Sulfate [Albuterol 2 puff INHALATION RT-Q6H PRN 09/27/23 12/08/24 History Sulfate Hfa] Gabapentin [Neurontin] 800 mg PO TID 10/26/23 12/08/24 History Insulin Aspart Prot/Insuln Asp 10 unit SQ W/SUPPER 10/26/23 12/08/24 History [NovoLOG MIX 70-30 Flexpen] cloNIDine HCL [Catapres] 0.3 mg PO HS 10/26/23 12/08/24 History Benzonatate [Tessalon Perles] 100 mg PO TID PRN #20 cap 11/02/23 12/08/24 Rx Albuterol Nebulized [Ventolin 2.5 mg INHALATION RT-Q4H PRN 11/15/24 12/08/24 History Nebulized] Cyclobenzaprine [Flexeril] 10 mg PO TID PRN 11/15/24 12/08/24 History HYDROcodone/APAP 5-325MG [[facility] 1 tab PO TID PRN 11/15/24 12/08/24 History 5-325] Insulin Aspart [NovoLOG Flexpen] See Protocol SQ ACHS 11/15/24 12/08/24 History Levothyroxine Sodium [Synthroid] 175 mcg PO DAILY 11/15/24 12/08/24 History busPIRone HCL 15 mg PO BID PRN 11/15/24 12/08/24 History diphenhydrAMINE [Benadryl] 25 mg PO DAILY PRN 11/15/24 12/08/24 History rOPINIRole HCL [Requip] 2 mg PO HS 11/15/24 12/08/24 History traMADol HCL 50 mg PO BID PRN 11/15/24 12/08/24 History Aspirin 81 mg PO DAILY 30 Days #30 tab 11/20/24 12/08/24 Rx Atorvastatin [Lipitor] 40 mg PO HS 30 Days #30 tab 11/20/24 12/08/24 Rx Dapagliflozin Propanediol [Farxiga] 10 mg PO DAILY 30 Days #30 tab 11/20/24 12/08/24 Rx Furosemide [Lasix] 40 mg PO DAILY 30 Days #30 tab 11/20/24 12/08/24 Rx Ticagrelor [Brilinta] 90 mg PO BID 30 Days #60 tab 11/20/24 12/08/24 Rx ARIPiprazole [Abilify] 5 mg PO HS 12/07/24 12/08/24 History Insulin Glargine,Hum.rec.anlog 20 units SQ DAILY 12/07/24 12/08/24 History [Lantus Solostar Pen] Insulin Aspart Prot/Insuln Asp 12 unit SQ W/BRKFST 12/08/24 12/08/24 History [NovoLOG MIX 70-30 Flexpen] Metoprolol Tartrate [Lopressor] 12.5 mg PO BID 12/08/24 12/08/24 History Pantoprazole Sodium [Protonix] 40 mg PO DAILY 12/08/24 12/08/24 History Allergies Allergy/AdvReac Type Severity Reaction Status Date / Time erythromycin base AdvReac Nausea & Verified 12/08/24 08:53 Vomiting Physical Exam Vitals: Vital Signs Temp Pulse Resp BP Pulse Ox 12/08/24 09:08 88 18 123/63 100 12/08/24 08:51 96 12/08/24 08:31 88 12/08/24 08:19 84 12/08/24 06:00 74 18 117/65 98 12/08/24 04:00 71 18 101/54 97 12/08/24 03:00 71 18 125/55 95 12/08/24 01:51 80 18 100/62 98 12/08/24 00:23 70 12/08/24 00:10 70 12/07/24 23:06 98.2 F 70 18 105/61 97 Intake and Output 12/07/24 12/08/24 12/08/24 22:59 06:59 14:59 Other: Weight 67.132 kg Results CBC & Chem 7: 12/07/24 23:08 12/08/24 14:16 Labs: Abnormal Lab Results - Last 24 Hours (Table) 12/07/24 12/07/24 12/07/24 Range/Units 23:08 23:08 23:08 RBC 3.22 L (3.80-5.40) m/uL Hgb 10.0 L (11.4-16.0) gm/dL Hct 30.7 L (34.0-46.0) % Sodium 135 L (137-145) mmol/L Potassium 3.3 L (3.5-5.1) mmol/L Carbon Dioxide 21 L (22-30) mmol/L BUN 37 H (7-17) mg/dL Creatinine 1.50 H (0.52-1.04) mg/dL Glucose 61 L (74-99) mg/dL POC Glucose (mg/dL) 66 L (70-110) mg/dL
[2024-12-08 15:28] LABS: Glucose,Whole Blood 374 mg/dL (70-110)
[2024-12-08] MEDS: busPIRone HCl 5 MG TAB PO PRN (15:55)
[2024-12-08 16:29] LABS: Glucose,Whole Blood 285 mg/dL (70-110)
--- NOTE | 2024-12-08 16:51 | P.CNPUL ---
History of Present Illness Consult date: 12/08/24 Reason for consult: dyspnea, COPD History of present illness: I am seeing this patient Emergency Department for shortness of breath. The patient is known to me. The patient presented to the ED with increased dyspnea. She is a former smoker and she is known to have COPD and pulm adenocarcinoma. She is status post right lower lobe lobectomy. The patient has increased dyspnea cough chest tightness and wheezing and presentation is typical for an acute CF exacerbation. Her blood sugars were also elevated. She is known to have also coronary artery disease and the patient has undergone a successful stenting of the OM1 back in 11/16/2024. She is free of any angina for now. In the emergency department, her blood work showed a white cell count of 7.7 with a hemoglobin of 10 and platelet count of 312. Normal coagulation profile. Sodium levels at 131, potassium level is at 4.4 with a chloride of 95 with a bicarb of 20. BUN is 52 with a creatinine of 1.5 as the patient has a component of chronic kidney disease. In terms of his COPD exacerbation, the patient was started on DuoNeb updrafts, Perforomist and Pulmicort nebulized treatments twice a day and IV Solu-Medrol. Blood sugars are being monitored for now. She is also on insulin drip for blood sugar control. Noted the patient is supposed to be on a combination of NovoLog Mix 70/30 and Lantus insulin and outpatient basis regarding her diabetes mellitus. Her blood sugars have been under poor control. Review of Systems Constitutional: Reports fatigue, Reports weight gain, Denies chills, Denies fever, Denies poor appetite, Denies weight loss Ears, nose, mouth and throat: Reports headache, Reports nasal congestion, Reports nasal discharge, Reports post-nasal drip, Reports sore throat, Denies sinus pain, Denies sinus pressure Cardiovascular: Reports chest pain, Reports dyspnea on exertion, Denies leg edema, Denies orthopnea, Denies palpitations, Denies paroxysmal nocturnal dyspnea, Denies syncope Respiratory: Reports congestion, Reports cough, Reports dyspnea, Reports wheezing, Denies cough with sputum, Denies home oxygen Gastrointestinal: Reports nausea, Denies abdominal pain, Denies diarrhea, Denies vomiting Genitourinary: Reports stress incontinence, Denies dysuria, Denies flank pain, Denies hematuria Musculoskeletal: Denies limitation of motion Integumentary: Denies sores Neurological: Denies seizures, Denies syncope Psychiatric: Reports anxiety, Reports depression, Denies suicidal ideation Past Medical History Past Medical History: Cancer, COPD, Diabetes Mellitus, Eye Disorder, GERD/Reflux, Hypertension, Myocardial Infarction (ID), Musculoskeletal Disorder, Osteoarthritis (OA), Pneumonia, Pulmonary Embolus (PE), Seizure Disorder, Thyroid Disorder Additional Past Medical History / Comment(s): seizure disorder secondary to hypoglycemia, last seizure approx. year ago, hypothyroid, multiple sclerosis, diabetic peripheral neuropathy, optic neuritis, decreased vision in the eyes, restless leg syndrome, colon polyps, anxiety depression, Hx prob w/ cervical discs., DDD, hx. lung cancer 2022-had surg., PE 2022, recent adm. for pneumonia Last Myocardial Infarction Date:: unk History of Any Multi-Drug Resistant Organisms: None Reported Past Surgical History: Adenoidectomy, Appendectomy, Heart Catheterization With Stent, Orthopedic Surgery, Tonsillectomy, Tubal Ligation Additional Past Surgical History / Comment(s): Laparoscopies. Pain procedures., bronson. cataracts removed. right lower lobectomy,. cervical fusion,right ankle fusion Past Anesthesia/Blood Transfusion Reactions: Family History of Problems w/ Anesthesia, Motion Sickness Additional Past Anesthesia/Blood Transfusion Reaction / Comment(s): no blood transfusions, needs more than average amount of versed for it to work, mom used to wake up during surg. Date of Last Stent Placement:: 2023 Past Psychological History: Anxiety, Depression Smoking Status: Former smoker - Past Family History Mother Family Medical History: Myocardial Infarction (ID) Additional Family Medical History / Comment(s): Mother at age 48 from coronary artery disease. Patient does not have any brothers and sisters. She has one adult son with no major medical problems. Medications and Allergies Home Medications Medication Instructions Recorded Confirmed Type Montelukast [Singulair] 10 mg PO DAILY 07/28/22 12/08/24 History Albuterol Sulfate [Albuterol 2 puff INHALATION RT-Q6H PRN 09/27/23 12/08/24 History Sulfate Hfa] Gabapentin [Neurontin] 800 mg PO TID 10/26/23 12/08/24 History Insulin Aspart Prot/Insuln Asp 10 unit SQ W/SUPPER 10/26/23 12/08/24 History [NovoLOG MIX 70-30 Flexpen] cloNIDine HCL [Catapres] 0.3 mg PO HS 10/26/23 12/08/24 History Benzonatate [Tessalon Perles] 100 mg PO TID PRN #20 cap 11/02/23 12/08/24 Rx Albuterol Nebulized [Ventolin 2.5 mg INHALATION RT-Q4H PRN 11/15/24 12/08/24 History Nebulized] Cyclobenzaprine [Flexeril] 10 mg PO TID PRN 11/15/24 12/08/24 History HYDROcodone/APAP 5-325MG [[place] 1 tab PO TID PRN 11/15/24 12/08/24 History 5-325] Insulin Aspart [NovoLOG Flexpen] See Protocol SQ ACHS 11/15/24 12/08/24 History Levothyroxine Sodium [Synthroid] 175 mcg PO DAILY 11/15/24 12/08/24 History busPIRone HCL 15 mg PO BID PRN 11/15/24 12/08/24 History diphenhydrAMINE [Benadryl] 25 mg PO DAILY PRN 11/15/24 12/08/24 History rOPINIRole HCL [Requip] 2 mg PO HS 11/15/24 12/08/24 History traMADol HCL 50 mg PO BID PRN 11/15/24 12/08/24 History Aspirin 81 mg PO DAILY 30 Days #30 tab 11/20/24 12/08/24 Rx Atorvastatin [Lipitor] 40 mg PO HS 30 Days #30 tab 11/20/24 12/08/24 Rx Dapagliflozin Propanediol [Farxiga] 10 mg PO DAILY 30 Days #30 tab 11/20/24 12/08/24 Rx Furosemide [Lasix] 40 mg PO DAILY 30 Days #30 tab 11/20/24 12/08/24 Rx Ticagrelor [Brilinta] 90 mg PO BID 30 Days #60 tab 11/20/24 12/08/24 Rx ARIPiprazole [Abilify] 5 mg PO HS 12/07/24 12/08/24 History Insulin Glargine,Hum.rec.anlog 20 units SQ DAILY 12/07/24 12/08/24 History [Lantus Solostar Pen] Insulin Aspart Prot/Insuln Asp 12 unit SQ W/BRKFST 12/08/24 12/08/24 History [NovoLOG MIX 70-30 Flexpen] Metoprolol Tartrate [Lopressor] 12.5 mg PO BID 12/08/24 12/08/24 History Pantoprazole Sodium [Protonix] 40 mg PO DAILY 12/08/24 12/08/24 History Allergies Allergy/AdvReac Type Severity Reaction Status Date / Time erythromycin base AdvReac Nausea & Verified 12/08/24 08:53 Vomiting Physical Exam Vitals: Vital Signs Temp Pulse Resp BP Pulse Ox 12/08/24 12:05 86 12/08/24 11:09 89 18 136/75 100 12/08/24 09:08 88 18 123/63 100 12/08/24 08:51 96 12/08/24 08:31 88 12/08/24 08:19 84 12/08/24 06:00 74 18 117/65 98 12/08/24 04:00 71 18 101/54 97 12/08/24 03:00 71 18 125/55 95 12/08/24 01:51 80 18 100/62 98 12/08/24 00:23 70 12/08/24 00:10 70 12/07/24 23:06 98.2 F 70 18 105/61 97 Intake and Output 12/07/24 12/08/24 12/08/24 22:59 06:59 14:59 Other: Weight 67.132 kg The patient appeared well nourished and normally developed. Vital signs as d ocumented. Head exam is unremarkable. No scleral icterus or corneal arcus noted. Neck is without jugular venous distension, thyromegaly, or carotid bruits. Carotid upstrokes are brisk bilaterally. Lungs are are diminished bilaterally along with scattered expiratory wheezes throughout the lung berry Cardiac exam reveals the PMI to be normally sized and situated. Rhythm is regular. First and second heart sounds normal. No murmurs, rubs or gallops. Abdominal exam reveals normal bowel sounds, no masses, no organomegaly and no aortic enlargement. Extremities are nonedematous and both femoral and pedal pulses are normal. Examination of the skin revealed no evidence of significant rashes, suspicious appearing nevi or other concerning lesions. Neurologically, the patient is awake and alert and the patient does not have any focal neurological deficit. Cranial nerves are essentially intact. Results - Laboratory Findings CBC and BMP: 12/07/24 23:08 12/08/24 14:16 PT/INR, D-dimer PT 10.4 sec (10.0-12.5) 12/07/24 23:08 INR 0.9 (<1.2) 12/07/24 23:08 Abnormal lab findings: Abnormal Labs 12/07/24 12/07/24 12/07/24 23:08 23:08 23:08 RBC 3.22 L Hgb 10.0 L Hct 30.7 L Sodium 135 L Potassium 3.3 L Carbon Dioxide 21 L BUN 37 H Creatinine 1.50 H Glucose 61 L POC Glucose (mg/dL) 66 L 12/08/24 12/08/24 09:24 10:46 RBC Hgb Hct Sodium Potassium Carbon Dioxide BUN Creatinine Glucose POC Glucose (mg/dL) >600 H* 589 H* - Diagnostic Findings Chest x-ray: image reviewed Assessment and Plan Plan: Acute COPD exacerbation, no evidence of pneumonia and the chest x-ray is essentially clear. Coronary artery disease with previous Non-ST elevation ID, status post heart catheterization done 11/16/2024, patient did receive PCI/stenting of the OM1. Acute on chronic dyspnea secondary to COPD exacerbation History of pulmonary adenocarcinoma, status post right sided video-assisted thorascopic surgery and right lower lobectomy on 09/29/2023. Recent chest CT done outpatient 09/18/2024 showing postsurgical changes of partial right lower lobectomy, previously seen spiculated 2.1 cm mass with cavitation in the right lower lobe nearly completely resolved. There was a small 7.5 mm residual nodule. New 5.4 mm nodule in the posterior right upper lobe. Disease recur rence cannot be excluded. Recommendation was for short-term follow-up Former tobacco dependence, quitting 2 months ago History of pulmonary embolism, not currently on anticoagulation Diabetes mellitus type 1, poorly controlled blood sugar and the patient is currently hyperglycemic, on insulin drip Acute kidney injury, with possibly a component of chronic kidney disease in addition. Anemia of chronic disease History of hypothyroidism History of multiple sclerosis Chronic lumbar back pain and moderate multilevel degeneration with for moderate to severe spinal canal stenosis at L3-L5 Obesity, with a BMI of 30.1 kg/m History of anxiety/depression Plan: Continue DuoNeb nebulized treatments [id number] Continue Perforomist and Pulmicort updrafts twice a day IV Solu-Medrol Insulin drip Hourly blood sugars Gradually transition this patient to long-acting insulin once the blood sugars under better control Discontinue Lasix Monitor renal function Resume cardiac medications Previous echocardiogram showing a preserved left ventricular ejection fraction of 55 to 60% without regional wall abnormalities. Smoking cessation counseling was done. Will continue to follow
[2024-12-08] MEDS: D5-0.45% NACL WITH KCL 20MEQ/L 1,000 ML IV SCH (16:54)
[2024-12-08] MEDS ORDERED: INSULN ASP PRT/INSULIN ASPART 100 UNIT/ML 10 ML VIAL SQ SCH ×2 (17:30)
[2024-12-08 17:33] LABS: Glucose,Whole Blood 260 mg/dL (70-110)
[2024-12-08 18:39] LABS: Glucose,Whole Blood 204 mg/dL (70-110)
[2024-12-08] MEDS: methylPREDNISolone SOD SUCCI 125 MG/2 ML VIAL IV SCH (18:48)
[2024-12-08 19:11] LABS: African American GFR (CKD) 36 (>60 ml/min/1.73 sqM); Anion Gap 14 mmol/L; Blood Urea Nitrogen 53 mg/dL (7-17); Carbon Dioxide 20 mmol/L (22-30); Chloride 99 mmol/L (98-107); Glucose 221 mg/dL (74-99); Non-African American GFR(CKD) 32 (>60 ml/min/1.73 sqM); Phosphorus 3.9 mg/dL (2.5-4.5); Potassium 4.1 mmol/L (3.5-5.1); Sodium 133 mmol/L (137-145)
[2024-12-08 19:34] LABS: Glucose,Whole Blood 162 mg/dL (70-110)
[2024-12-08 20:31] LABS: Glucose,Whole Blood 156 mg/dL (70-110)
[2024-12-08] MEDS: ALBUTEROL NEBULIZED 2.5 MG/3 ML INHALATION PRN (20:49)
[2024-12-08] MEDS ORDERED: INSULIN DETEMIR (LEVEMIR) 100 UNIT/ML SYR SQ SCH (21:00)
[2024-12-08] MEDS: ATORVASTATIN 40 MG TAB PO SCH (21:40)
[2024-12-08] MEDS: cloNIDine HCL 0.1 MG TAB PO SCH (21:40)
[2024-12-08] MEDS: QUEtiapine 100 MG TAB PO PRN (21:41)
[2024-12-08] MEDS: ARIPiprazole 5 MG TAB PO SCH (21:41)
[2024-12-08 21:47] LABS: Glucose,Whole Blood 194 mg/dL (70-110)
[2024-12-08 22:51] LABS: Glucose,Whole Blood 240 mg/dL (70-110)
[2024-12-08 23:31] LABS: Glucose,Whole Blood 246 mg/dL (70-110)
[2024-12-09 00:04] LABS: African American GFR (CKD) 36 (>60 ml/min/1.73 sqM); Anion Gap 12 mmol/L; Blood Urea Nitrogen 53 mg/dL (7-17); Carbon Dioxide 21 mmol/L (22-30); Chloride 102 mmol/L (98-107); Glucose 217 mg/dL (74-99); Non-African American GFR(CKD) 32 (>60 ml/min/1.73 sqM); Phosphorus 3.7 mg/dL (2.5-4.5); Potassium 4.7 mmol/L (3.5-5.1); Sodium 135 mmol/L (137-145)
[2024-12-09 00:28] LABS: Glucose,Whole Blood 234 mg/dL (70-110)
[2024-12-09 01:33] LABS: Glucose,Whole Blood 241 mg/dL (70-110)
[2024-12-09 02:44] LABS: Glucose,Whole Blood 227 mg/dL (70-110)
[2024-12-09 03:40] LABS: Glucose,Whole Blood 271 mg/dL (70-110)
[2024-12-09 04:35] LABS: Basophils % (A) 0 %; Eosinophils % (A) 0 %; HCT 28.2 % (34.0-46.0); HGB 9.3 gm/dL (11.4-16.0); Hypochromasia Slight; Lymphocytes # (A) 0.5 k/uL (1.0-4.8); Lymphocytes % (A) 4 %; MCHC 33.2 g/dL (31.0-37.0); MCV 96.6 fL (80.0-100.0); Mean Platelet Volume 8.8; Monocytes # (A) 0.1 k/uL (0-1.0); Monocytes % (A) 1 %; Neutrophils # (A) 10.4 k/uL (1.3-7.7); Neutrophils % (A) 94 %; Platelet Count 346 k/uL (150-450); RBC 2.91 m/uL (3.80-5.40); RDW 13.2 % (11.5-15.5); WBC 11.1 k/uL (3.8-10.6)
[2024-12-09 04:36] LABS: Glucose,Whole Blood 333 mg/dL (70-110)
[2024-12-09 05:10] LABS: ALT 20 U/L (4-34); AST 18 U/L (14-36); African American GFR (CKD) 38 (>60 ml/min/1.73 sqM); Albumin 3.4 g/dL (3.5-5.0); Alkaline Phosphatase 124 U/L (38-126); Anion Gap 11 mmol/L; Blood Urea Nitrogen 48 mg/dL (7-17); Carbon Dioxide 19 mmol/L (22-30); Chloride 105 mmol/L (98-107); Glucose 292 mg/dL (74-99); Non-African American GFR(CKD) 33 (>60 ml/min/1.73 sqM); Potassium 4.7 mmol/L (3.5-5.1); Sodium 135 mmol/L (137-145); Total Bilirubin 0.1 mg/dL (0.2-1.3); Total Protein 5.9 g/dL (6.3-8.2)
[2024-12-09 05:44] LABS: Glucose,Whole Blood 289 mg/dL (70-110)
[2024-12-09 06:22] LABS: Glucose,Whole Blood 234 mg/dL (70-110)
[2024-12-09 07:36] LABS: Glucose,Whole Blood 125 mg/dL (70-110)
[2024-12-09] MEDS: FUROSEMIDE 20 MG TAB PO SCH (08:20)
[2024-12-09] MEDS: ENOXAPARIN 30 MG/0.3 ML SYRINGE SQ SCH (08:20)
[2024-12-09 08:28] LABS: Glucose,Whole Blood 117 mg/dL (70-110)
[2024-12-09 08:43] LABS: African American GFR (CKD) 44 (>60 ml/min/1.73 sqM); Anion Gap 12 mmol/L; Blood Urea Nitrogen 48 mg/dL (7-17); Calcium 9.6 mg/dL (8.4-10.2); Carbon Dioxide 20 mmol/L (22-30); Chloride 107 mmol/L (98-107); Glucose 98 mg/dL (74-99); Magnesium 2.1 mg/dL (1.6-2.3); Non-African American GFR(CKD) 38 (>60 ml/min/1.73 sqM); Phosphorus 4.2 mg/dL (2.5-4.5); Potassium 4.6 mmol/L (3.5-5.1); Sodium 139 mmol/L (137-145)
[2024-12-09 09:49] LABS: Glucose,Whole Blood 243 mg/dL (70-110)
[2024-12-09 10:28] LABS: Glucose,Whole Blood 318 mg/dL (70-110)
[2024-12-09 11:36] LABS: Glucose,Whole Blood 343 mg/dL (70-110)
--- NOTE | 2024-12-09 12:32 | P.PN ---
Subjective Progress Note Date: 12/09/24 I am seeing this patient Emergency Department for shortness of breath. The pat christianne is known to me. The patient presented to the ED with increased dyspnea. She is a former smoker and she is known to have COPD and pulm adenocarcinoma. She is status post right lower lobe lobectomy. The patient has increased dyspnea cough chest tightness and wheezing and presentation is typical for an acute CF exacerbation. Her blood sugars were also elevated. She is known to have also coronary artery disease and the patient has undergone a successful stenting of the OM1 back in 11/16/2024. She is free of any angina for now. In the emergency department, her blood work showed a white cell count of 7.7 with a hemoglobin of 10 and platelet count of 312. Normal coagulation profile. Sodium levels at 131, potassium level is at 4.4 with a chloride of 95 with a bicarb of 20. BUN is 52 with a creatinine of 1.5 as the patient has a component of chronic kidney disease. In terms of his COPD exacerbation, the patient was started on DuoNeb updrafts, Perforomist and Pulmicort nebulized treatments twice a day and IV Solu-Medrol. Blood sugars are being monitored for now. She is also on insulin drip for blood sugar control. Noted the patient is supposed to be on a combination of NovoLog Mix 70/30 and Lantus insulin and outpatient basis regarding her diabetes mellitus. Her blood sugars have been under poor control. On 12/09/2024, the patient is being seen for a follow-up. Has increased anxiety with systemic steroids and the patient is still on IV Solu-Medrol 60 mg every 6 hours. Appears to be less short of breath less bronchospastic and wheezy. She was started on BuSpar 50 mg p.o. twice a day. She remains on oxygen on room air and no significant hypoxemia. The patient is also on insulin drip for blood sugar control and blood sugar control is improved since yesterday. Rest of the medications are unchanged. She remains on DuoNeb. She remains on a combination of Perforomist and Pulmicort updrafts twice a day. Cardiology is on the case. She is free of any chest pain. Objective - Vital Signs Vital signs: Vital Signs Temp 98.5 F 12/09/24 08:18 Pulse 92 12/09/24 08:45 Resp 18 12/09/24 08:18 BP 97/50 12/09/24 08:18 Pulse Ox 97 12/09/24 08:37 FiO2 Intake & Output 12/08/24 12/09/24 12/09/24 18:59 06:59 18:59 Intake Total 22.335 340.439 466.230 Output Total 400 Balance 22.335 -59.561 466.230 Weight 67.132 kg Intake: Intake, IV Titration 22.335 100.439 22.230 Amount Insulin Regular 100 unit 22.335 100.439 22.230 In Sodium Chloride 0.9% 100 ml @ 0.1 UNIT/KG/HR 6 .713 mls/hr IV .[id number] MARIS Rx#:[id number] Oral 240 444 Output: Urine 400 - Exam The patient appeared well nourished and normally developed. Vital signs as documented. Head exam is unremarkable. No scleral icterus or corneal arcus noted. Neck is without jugular venous distension, thyromegaly, or carotid bruits. Carotid upstrokes are brisk bilaterally. Lungs are are diminished bilaterally along with scattered expiratory wheezes throughout the lung berry Cardiac exam reveals the PMI to be normally sized and situated. Rhythm is regular. First and second heart sounds normal. No murmurs, rubs or gallops. Abdominal exam reveals normal bowel sounds, no masses, no organomegaly and no aortic enlargement. Extremities are nonedematous and both femoral and pedal pulses are normal. Examination of the skin revealed no evidence of significant rashes, suspicious appearing nevi or other concerning lesions. Neurologically, the patient is awake and alert and the patient does not have any focal neurological deficit. Cranial nerves are essentially intact. - Labs CBC & Chem 7: 12/09/24 04:12 12/09/24 07:40 Labs: Abnormal Lab Results - Last 24 Hours (Table) 12/08/24 12/08/24 12/08/24 Range/Units 10:46 12:59 14:16 WBC (3.8-10.6) k/uL RBC (3.80-5.40) m/uL Hgb (11.4-16.0) gm/dL Hct (34.0-46.0) % Neutrophils # (1.3-7.7) k/uL Lymphocytes # (1.0-4.8) k/uL VBG HCO3 (24-28) mmol/L Sodium 131 L (137-145) mmol/L Chloride 95 L (98-107) mmol/L Carbon Dioxide 20 L (22-30) mmol/L BUN 52 H (7-17) mg/dL Creatinine 1.66 H (0.52-1.04) mg/dL Glucose 445 H (74-99) mg/dL POC Glucose (mg/dL) 589 H* 531 H* (70-110) mg/dL Phosphorus 5.8 H (2.5-4.5) mg/dL Total Bilirubin (0.2-1.3) mg/dL Total Protein (6.3-8.2) g/dL Albumin (3.5-5.0) g/dL 12/08/24 12/08/24 12/08/24 Range/Units 14:16 15:27 16:27 WBC (3.8-10.6) k/uL RBC (3.80-5.40) m/uL Hgb (11.4-16.0) gm/dL Hct (34.0-46.0) % Neutrophils # (1.3-7.7) k/uL Lymphocytes # (1.0-4.8) k/uL VBG HCO3 23 L (24-28) mmol/L Sodium (137-145) mmol/L Chloride (98-107) mmol/L Carbon Dioxide (22-30) mmol/L BUN (7-17) mg/dL Creatinine (0.52-1.04) mg/dL Glucose (74-99) mg/dL POC Glucose (mg/dL) 374 H 285 H (70-110) mg/dL Phosphorus (2.5-4.5) mg/dL Total Bilirubin (0.2-1.3) mg/dL Total Protein (6.3-8.2) g/dL Albumin (3.5-5.0) g/dL 12/08/24 12/08/24 12/08/24 Range/Units 17:31 17:49 18:36 WBC (3.8-10.6) k/uL RBC (3.80-5.40) m/uL Hgb (11.4-16.0) gm/dL Hct (34.0-46.0) % Neutrophils # (1.3-7.7) k/uL Lymphocytes # (1.0-4.8) k/uL VBG HCO3 (24-28) mmol/L Sodium 133 L (137-145) mmol/L Chloride (98-107) mmol/L Carbon Dioxide 20 L (22-30) mmol/L BUN 53 H (7-17) mg/dL Creatinine 1.74 H (0.52-1.04) mg/dL Glucose 221 H (74-99) mg/dL POC Glucose (mg/dL) 260 H 204 H (70-110) mg/dL Phosphorus (2.5-4.5) mg/dL Total Bilirubin (0.2-1.3) mg/dL Total Protein (6.3-8.2) g/dL Albumin (3.5-5.0) g/dL 12/08/24 12/08/24 12/08/24 Range/Units 19:32 20:30 21:46 WBC (3.8-10.6) k/uL RBC (3.80-5.40) m/uL Hgb (11.4-16.0) gm/dL Hct (34.0-46.0) % Neutrophils # (1.3-7.7) k/uL Lymphocytes # (1.0-4.8) k/uL VBG HCO3 (24-28) mmol/L Sodium (137-145) mmol/L Chloride (98-107) mmol/L Carbon Dioxide (22-30) mmol/L BUN (7-17) mg/dL Creatinine (0.52-1.04) mg/dL Glucose (74-99) mg/dL POC Glucose (mg/dL) 162 H 156 H 194 H (70-110) mg/dL Phosphorus (2.5-4.5) mg/dL Total Bilirubin (0.2-1.3) mg/dL Total Protein (6.3-8.2) g/dL Albumin (3.5-5.0) g/dL 12/08/24 12/08/24 12/08/24 Range/Units 22:46 23:25 23:30 WBC (3.8-10.6) k/uL RBC (3.80-5.40) m/uL Hgb (11.4-16.0) gm/dL Hct (34.0-46.0) % Neutrophils # (1.3-7.7) k/uL Lymphocytes # (1.0-4.8) k/uL VBG HCO3 (24-28) mmol/L Sodium 135 L (137-145) mmol/L Chloride (98-107) mmol/L Carbon Dioxide 21 L (22-30) mmol/L BUN 53 H (7-17) mg/dL Creatinine 1.73 H (0.52-1.04) mg/dL Glucose 217 H (74-99) mg/dL POC Glucose (mg/dL) 240 H 246 H (70-110) mg/dL Phosphorus (2.5-4.5) mg/dL Total Bilirubin (0.2-1.3) mg/dL Total Protein (6.3-8.2) g/dL Albumin (3.5-5.0) g/dL 12/09/24 12/09/24 12/09/24 Range/Units 00:24 01:31 02:42 WBC (3.8-10.6) k/uL RBC (3.80-5.40) m/uL Hgb (11.4-16.0) gm/dL Hct (34.0-46.0) % Neutrophils # (1.3-7.7) k/uL Lymphocytes # (1.0-4.8) k/uL VBG HCO3 (24-28) mmol/L Sodium (137-145) mmol/L Chloride (98-107) mmol/L Carbon Dioxide (22-30) mmol/L BUN (7-17) mg/dL Creatinine (0.52-1.04) mg/dL Glucose (74-99) mg/dL POC Glucose (mg/dL) 234 H 241 H 227 H (70-110) mg/dL Phosphorus (2.5-4.5) mg/dL Total Bilirubin (0.2-1.3) mg/dL Total Protein (6.3-8.2) g/dL Albumin (3.5-5.0) g/dL 12/09/24 12/09/24 12/09/24 Range/Units 03:38 04:12 04:12 WBC 11.1 H (3.8-10.6) k/uL RBC 2.91 L (3.80-5.40) m/uL Hgb 9.3 L (11.4-16.0) gm/dL Hct 28.2 L (34.0-46.0) % Neutrophils # 10.4 H (1.3-7.7) k/uL Lymphocytes # 0.5 L (1.0-4.8) k/uL VBG HCO3 (24-28) mmol/L Sodium 135 L (137-145) mmol/L Chloride (98-107) mmol/L Carbon Dioxide 19 L (22-30) mmol/L BUN 48 H (7-17) mg/dL Creatinine 1.69 H (0.52-1.04) mg/dL Glucose 292 H (74-99) mg/dL POC Glucose (mg/dL) 271 H (70-110) mg/dL Phosphorus (2.5-4.5) mg/dL Total Bilirubin 0.1 L (0.2-1.3) mg/dL Total Protein 5.9 L (6.3-8.2) g/dL Albumin 3.4 L (3.5-5.0) g/dL 12/09/24 12/09/24 12/09/24 Range/Units 04:35 05:41 06:20 WBC (3.8-10.6) k/uL RBC (3.80-5.40) m/uL Hgb (11.4-16.0) gm/dL Hct (34.0-46.0) % Neutrophils # (1.3-7.7) k/uL Lymphocytes # (1.0-4.8) k/uL VBG HCO3 (24-28) mmol/L Sodium (137-145) mmol/L Chloride (98-107) mmol/L Carbon Dioxide (22-30) mmol/L BUN (7-17) mg/dL Creatinine (0.52-1.04) mg/dL Glucose (74-99) mg/dL POC Glucose (mg/dL) 333 H 289 H 234 H (70-110) mg/dL Phosphorus (2.5-4.5) mg/dL Total Bilirubin (0.2-1.3) mg/dL Total Protein (6.3-8.2) g/dL Albumin (3.5-5.0) g/dL 12/09/24 12/09/24 12/09/24 Range/Units 07:35 07:40 08:27 WBC (3.8-10.6) k/uL RBC (3.80-5.40) m/uL Hgb (11.4-16.0) gm/dL Hct (34.0-46.0) % Neutrophils # (1.3-7.7) k/uL Lymphocytes # (1.0-4.8) k/uL VBG HCO3 (24-28) mmol/L Sodium (137-145) mmol/L Chloride (98-107) mmol/L Carbon Dioxide 20 L (22-30) mmol/L BUN 48 H (7-17) mg/dL Creatinine 1.48 H (0.52-1.04) mg/dL Glucose (74-99) mg/dL POC Glucose (mg/dL) 125 H 117 H (70-110) mg/dL Phosphorus (2.5-4.5) mg/dL Total Bilirubin (0.2-1.3) mg/dL Total Protein (6.3-8.2) g/dL Albumin (3.5-5.0) g/dL Assessment and Plan Plan: Acute COPD exacerbation, no evidence of pneumonia and the chest x-ray is essentially clear. Clinically improving Coronary artery disease with previous Non-ST elevation VT, status post heart catheterization done 11/16/2024, patient did receive PCI/stenting of the OM1. Acute on chronic dyspnea secondary to COPD exacerbation History of pulmonary adenocarcinoma, status post right sided video-assisted thorascopic surgery and right lower lobectomy on 09/29/2023. Recent chest CT done outpatient 09/18/2024 showing postsurgical changes of partial right lower lobectomy, previously seen spiculated 2.1 cm mass with cavitation in the right lower lobe nearly completely resolved. There was a small 7.5 mm residual nodule. New 5.4 mm nodule in the posterior right upper lobe. Disease recurrence cannot be excluded. Recommendation was for short-term follow-up Former tobacco dependence, quitting 2 months ago History of pulmonary embolism, not currently on anticoagulation Diabetes mellitus type 1, poorly controlled blood sugar and the patient is currently hyperglycemic, on insulin drip Acute kidney injury, with possibly a component of chronic kidney disease in addition. Anemia of chronic disease History of hypothyroidism History of multiple sclerosis Chronic lumbar back pain and moderate multilevel degeneration with for moderate to severe spinal canal stenosis at L3-L5 Obesity, with a BMI of 30.1 kg/m History of anxiety/depression Plan: Continue DuoNeb nebulized treatments [id number] Continue Perforomist and Pulmicort updrafts twice a day IV Solu-Medrol and a dose will be reduced to 40 mg to 8 hours Having increased anxiety and the patient was placed on BuSpar. The dose to be modified to 30 mg twice a day. Insulin drip Blood sugar control has improved Gradually transition this patient to long-acting insulin once the blood sugars under better control Discontinue Lasix Monitor renal function Resume cardiac medications Previous echocardiogram showing a preserved left ventricular ejection fraction of 55 to 60% without regional wall abnormalities. Smoking cessation counseling was done. Will continue to follow
[2024-12-09 12:44] LABS: Glucose,Whole Blood 371 mg/dL (70-110)
[2024-12-09 12:46] VITALS: BMI 28.9
--- NOTE | 2024-12-09 13:04 | P.PN ---
Progress Note - Text Progress Note Date: 12/09/24 Chief Complaint: Short of breath This is a pleasant 59-year-old patient, follows with Dr. Ryan Pino. Extensive medical history to include COPD, diabetes, hypertension, osteoarthritis, hypothyroid, previous seizure disorder from hypoglycemia, multiple sclerosis, diabetic peripheral neuropathy, optic neuritis, restless leg syndrome anxiety depression. Right lower lobe lobectomy for localized adenocarcinoma in September 2023. Patient smoking until up to a month ago. Patient present increasing shortness of breath for last 2 days. Really could not get her breath. No cough no edema. No fever no chills. Just very short of breath. No edema. Patient Accu-Cheks running high this morning. In 400s. Patient's home insulin dose was not correct that was fixed. Patient underwent successful angioplasty stent to OM1 by Dr. Harris in November 16. Was scheduled this coming Wednesday for another cardiac cath by Dr. Harris. December 09: Sitting on the edge of bed. Took a shower. Breathing better. On DuoNeb. IV Solu-Medrol. Started today. On insulin drip. Oral intake better. Active Medications Hydrocodone Bitart/Acetaminophen (Hydrocodone/Apap 5-325mg 1 Each Tab) 1 each PO TID PRN PRN Reason: pain Last Admin: 12/09/24 08:20 Dose: 1 each Albuterol Sulfate (Albuterol Nebulized 2.5 Mg/3 Ml) 2.5 mg INHALATION RT-Q4H PRN PRN Reason: Shortness Of Breath Last Admin: 12/08/24 20:49 Dose: 2.5 mg Albuterol/Ipratropium (Ipratropium-Albuterol 3 Ml Neb) 3 ml INHALATION RT-Q2H PRN PRN Reason: Shortness Of Breath Or Wheezing Albuterol/Ipratropium (Ipratropium-Albuterol 3 Ml Neb) 3 ml INHALATION Q4H [facility] Last Admin: 12/09/24 12:08 Dose: 3 ml Aripiprazole (Aripiprazole 5 Mg Tab) 5 mg PO HS [facility] Last Admin: 12/08/24 21:41 Dose: 5 mg Aspirin (Aspirin 81 Mg) 81 mg PO DAILY [facility] Last Admin: 12/09/24 08:20 Dose: 81 mg Atorvastatin Calcium (Atorvastatin 40 Mg Tab) 40 mg PO [facility] Last Admin: 12/08/24 21:40 Dose: 40 mg Benzonatate (Benzonatate 100 Mg Cap) 100 mg PO TID PRN PRN Reason: Cough Last Admin: 12/09/24 08:20 Dose: 100 mg Budesonide (Budesonide 1 Mg/2 Ml Nebu) 1 mg INHALATION RT-BID [facility] Last Admin: 12/09/24 08:32 Dose: Not Given Buspirone HCl (Buspirone Hcl 10 Mg Tab) 30 mg PO BID [facility] Clonidine (Clonidine Hcl 0.1 Mg Tab) 0.3 mg PO HS [facility] Last Admin: 12/08/24 21:40 Dose: 0.3 mg Cyclobenzaprine HCl (Cyclobenzaprine 10 Mg Tab) 10 mg PO TID PRN PRN Reason: Muscle Spasm Last Admin: 12/09/24 08:20 Dose: 10 mg Dapagliflozin (Dapagliflozin Propanediol 10 Mg Tablet) 10 mg PO DAILY [facility] Last Admin: 12/09/24 08:20 Dose: 10 mg Dextrose/Water (Dextrose 50% Syringe 50 Ml) 25 ml IVP PER PROTOCOL PRN; Protocol PRN Reason: Hypoglycemia Dextrose/Water (Dextrose 50% Syringe 50 Ml) 50 ml IVP PER PROTOCOL PRN; Protocol PRN Reason: Hypoglycemia Diphenhydramine HCl (Diphenhydramine 25 Mg Cap) 25 mg PO DAILY PRN PRN Reason: Allergy Symptoms Enoxaparin Sodium (Enoxaparin 30 Mg/0.3 Ml Syringe) 30 mg SQ DAILY [facility] Last Admin: 12/09/24 08:20 Dose: 30 mg Formoterol Fumarate (Formoterol Fumarate 20 Mcg/2 Ml Nebu) 20 mcg INHALATION RT-BID [facility] Last Admin: 12/09/24 08:32 Dose: Not Given Furosemide (Furosemide 20 Mg Tab) 20 mg PO DAILY [facility] Last Admin: 12/09/24 08:20 Dose: 20 mg Gabapentin (Gabapentin 400 Mg Cap) 800 mg PO TID [facility] Last Admin: 12/09/24 08:20 Dose: 800 mg Insulin Human Regular 100 unit (/ Sodium Chloride) 100 mls @ 6.713 mls/hr IV .[id number] [facility]; Protocol Last Titration: 12/09/24 12:52 Dose: 5.92 units/hr, 5.92 mls/hr Sodium Chloride (Saline 0.9%) 1,000 mls @ 200 mls/hr IV .Q5H [facility] Last Admin: 12/09/24 11:35 Dose: Not Given Potassium Chloride/Dextrose/Sod Cl (D5%-1/2ns-Kcl 20 Meq/L Iv Solution) 1,000 mls @ 150 mls/hr IV .Q6H40M [facility] Last Admin: 12/09/24 06:10 Dose: 150 mls/hr Levothyroxine Sodium (Levothyroxine 88 Mcg Tab) 176 mcg PO 0630 [facility] Last Admin: 12/09/24 06:05 Dose: 176 mcg Methylprednisolone Sodium Succinate (Methylprednisolone Sod Succi 40 Mg/Ml 1 Ml Vial) 40 mg IV Q8HR [facility] Metoprolol Tartrate (Metoprolol Tartrate 12.5 Mg Tab) 12.5 mg PO BID [facility] Last Admin: 12/09/24 08:20 Dose: 12.5 mg Miscellaneous Information (Magnesium Replacement Protocol 1 Each Misc) 1 each MISCELLANE DAILY PRN; Protocol PRN Reason: Per Protocol Miscellaneous Information (Potassium Replacement Protocol 1 Each Misc) 1 each MISCELLANE DAILY PRN PRN Reason: Per Protocol Montelukast Sodium (Montelukast 10 Mg Tab) 10 mg PO DAILY [facility] Last Admin: 12/09/24 08:20 Dose: 10 mg Naloxone HCl (Naloxone 0.4 Mg/Ml 1 Ml Vial) 0.2 mg IV Q2M PRN PRN Reason: Opioid Reversal Ondansetron HCl (Ondansetron 4 Mg/2 Ml Vial) 4 mg IVP Q8HR PRN PRN Reason: Nausea And Vomiting Pantoprazole Sodium (Pantoprazole 40 Mg Tablet) 40 mg PO DAILY [facility] Last Admin: 12/09/24 08:20 Dose: 40 mg Quetiapine Fumarate (Quetiapine 100 Mg Tab) 100 mg PO HS PRN PRN Reason: Insomnia Last Admin: 12/08/24 21:41 Dose: 100 mg Ropinirole HCl (Ropinirole Hcl 1 Mg Tab) 2 mg PO HS [facility] Last Admin: 12/08/24 21:40 Dose: 2 mg Spironolactone (Spironolactone 25 Mg Tab) 12.5 mg PO DAILY [facility] Last Admin: 12/09/24 08:20 Dose: 12.5 mg Ticagrelor (Ticagrelor 90 Mg Tab) 90 mg PO BID [facility] Last Admin: 12/09/24 08:20 Dose: 90 mg Past medical history to include: COPD, diabetes, GERD, osteoarthritis, seizure disorder, hypothyroid, multiple sclerosis, diabetic peripheral neuropathy, optic neuritis, decreased vision in the eyes,;, restless leg syndrome, colon polyps, anxiety depression Social history: started smoking in 1978. Half a pack a day. Stopped in October 2024. She was drinking heavy alcohol up to about 2017. Has a roommate Aubree. Occasionally does marijuana. Does use a cane Physical examination: VITAL SIGNS: Afebrile, 86, 18, 117 x 60, 98% room air GENERAL: BMI 28.9, H in bed, breathing better EYES: Pupils equal. Conjunctiva normal. HEENT: External appearance of nose and ears normal, oral cavity grossly normal. NECK: JVD not raised; masses not palpable. HEART: First and second heart sounds are normal; no edema. LUNGS: Respiratory rate increased; diminished breath sounds, some expiratory mild crackles ABDOMEN: Soft, nontender, liver spleen not palpable, no masses palpable. PSYCH: [Alert and oriented x3; mood and affect anxious INVESTIGATIONS, reviewed in the clinical context: December 07: White count 7.7 hemoglobin 10 platelets 312 sodium 135 potassium 3.3 BUN 37 creatinine 1.5 Initial glucose 66 yesterday. Today greater than 600 Troponin I 0.028, 0.026, 0.017 Influenza type A, type B, RSV, COVID-19: Not detected EKG tracing personally reviewed by me-normal sinus rhythm. Chest x-ray film personally reviewed by me-lung berry clear Assessment and plan: -Acute severe COPD exacerbation in a recent smoker's been smoking for a long time. DuoNeb Q4. Nebulized Pulmicort. Nebulized Perforomist. IV Solu-Medrol -October 2024: Acute non-ST elevation myocardial infarction Successful angioplasty stent to OM1 by Dr. Harris-November 16 Aspirin. Brilinta -History of adeno carcinoma of the right lower lobe. Right lower lobe lobectomy September 2023 -Chronic arthritis multiple joints specially lumbar spine. Due for surgery. Ultram 50 mg twice daily. Neurontin. Flexeril as needed. -Diabetes mellitus type 2, chronically on insulin. . Uncontrolled with hyperglycemia. Secondary to IV steroids: Not improving Continue insulin drip -Diabetic peripheral neuropathy Neurontin 800 mg 3 times daily -Hypothyroid Synthroid 176 mcg -GERD Pepcid -Restless leg syndrome requip 2 mg every daily at bedtime -Anxiety depression BuSpar -Full code Discussed with patient. Continue current medication treatment plan. Continue insulin drip. IV Solu-Medrol. Past Medical History Past Medical History: Cancer, COPD, Diabetes Mellitus, Eye Disorder, GERD/Reflux, Hypertension, Myocardial Infarction ([place]), Musculoskeletal Disorder, Osteoarthritis (OA), Pneumonia, Pulmonary Embolus (PE), Seizure Disorder, Thyroid Disorder Additional Past Medical History / Comment(s): seizure disorder secondary to hypoglycemia, last seizure approx. year ago, hypothyroid, multiple sclerosis, diabetic peripheral neuropathy, optic neuritis, decreased vision in the eyes, restless leg syndrome, colon polyps, anxiety depression, Hx prob w/ cervical discs., DDD, hx. lung cancer 2022-had surg., PE 2022, recent adm. for pneumonia Last Myocardial Infarction Date:: unk History of Any Multi-Drug Resistant Organisms: None Reported Past Surgical History: Adenoidectomy, Appendectomy, Heart Catheterization With Stent, Orthopedic Surgery, Tonsillectomy, Tubal Ligation Additional Past Surgical History / Comment(s): Laparoscopies. Pain procedures., bronson. cataracts removed. right lower lobectomy,. cervical fusion,right ankle fusion Past Anesthesia/Blood Transfusion Reactions: Family History of Problems w/ Anesthesia, Motion Sickness Additional Past Anesthesia/Blood Transfusion Reaction / Comment(s): no blood transfusions, needs more than average amount of versed for it to work, mom used to wake up during surg. Date of Last Stent Placement:: 2023 Past Psychological History: Anxiety, Depression Smoking Status: Former smoker
[2024-12-09 13:37] LABS: Glucose,Whole Blood 376 mg/dL (70-110)
[2024-12-09 14:37] LABS: Glucose,Whole Blood 370 mg/dL (70-110)
[2024-12-09 15:21] LABS: Glucose,Whole Blood 358 mg/dL (70-110)
[2024-12-09] MEDS: methylPREDNISolone SOD SUCCI 40 MG/ML 1 ML VIAL IV SCH (15:37)
--- NOTE | 2024-12-09 15:59 | P.PN ---
Subjective Progress Note Date: 12/09/24 This is a 59-year-old female patient of Dr. Harris with past medical history of diabetes mellitus type I, hypertension, COPD, hypothyroidism, multiple sclerosis, pulmonary adenocarcinoma status post right-sided VATS with right lower lobectomy September 2023, small subsegmental right-sided pulmonary emboli 10/2023, history of tobacco use and dependence. Patient had a recent hospitalization in October and was seen by internal grinder set up operator at that time for NSTEMI status post PCI of the OM1 on 11/16/2024. Patient was also treated for COPD exacerbation and pneumonia on that hospitalization. Patient had a follow-up appointment with Dr. Harris on November 30 and plan was to continue current medical regime, scheduled coronary angiogram due to the nature of her symptoms and known intermediate to severe disease involving the LAD and possibly doing IFR of the LAD on 12/11/2024. We have been asked to evaluate the patient for chest pain. Patient complains of difficulty in breathing with minimal exertion. No increased wheezing. She states it started a couple nights ago. She is not on home oxygen. She states she has had some cough but usually is after a nebulizer treatment. She denies any sputum production. She last saw her pulmonary doctor, Dr. Garcia, last month. Patient is seen today in the emergency center waiting for a bed on the observation unit. Blood pressure 123/63, heart rate 88, pulse ox 100% on 2 L nasal cannula. Patient has been started on IV Lasix 40 mg every 12 hours -EKG: Sinus rhythm with low voltage, poor R wave progression, no acute ST changes. -Chest x-ray: No acute process. -CT brain: No acute intracranial hemorrhage or midline shift. Chronic small vessel ischemic changes. No acute process. -Laboratory studies: WBC 7.7, hemoglobin 10, BUN 37 and creatinine 1.5, potassium 3.3, glucose greater than 600, troponin negative x 3. proBNP 2370. -Home cardiac medications: Aspirin 81 mg daily, atorvastatin 40 mg at bedtime, clonidine 0.3 mg at bedtime, Farxiga 10 mg daily, Lasix 40 mg daily, Lopressor 12.5 mg twice daily, Brilinta 90 mg twice daily, also on levothyroxine -Echocardiogram performed on 10/2024: Normal LV systolic function. -Cardiac catheterization performed 11/16/[address] Harris revealed subtotal occluded OM1 status post PCI of OM1, intermediate disease of the mid LAD with hazy calcified lesion, normal left-sided filling pressures. 12/09/2024 She has been stable. She reports occasional shortness of breath and chest pressure that is the same as previous. She is planning to be discharged home and return Wednesday morning for outpatient heart cath scheduled with Dr. Hodge. Physical examination: Gen: This is a 59-year-old female in no acute distress VS: reviewed HEENT: Head is atraumatic, normocephalic. Pupils equal, round. Sclerae is anic teric. NECK: Supple. No JVD. LUNGS: Bilateral expiratory wheeze. No intercostal retractions. HEART: Regular rate and rhythm. Systolic murmur. ABDOMEN: Soft No tenderness. EXTREMITIES: No pedal edema. No calf tenderness. NEUROLOGICAL: Patient is awake, alert and oriented x3. Assessment: Atypical chest pain, acute coronary syndrome ruled out Acute kidney injury, mild COPD exacerbation Recent NSTEMI status post PCI of OM1 on 11/16/2024 History of adenocarcinoma of the lung Diabetes mellitus type 1 Hypertension Hypothyroidism MS History of PE 10/2023 Tobacco use and dependence, patient quit 3 months ago Plan: Patient will keep her appointment on Wednesday for cardiac catheterization. Cardiology will sign off this case and follow on an as-needed basis. Please reconsult for any new concerns. Follow up as scheduled. Nurse practitioner note has been reviewed by Dr. Grant, I agree with documented findings and plan of care. Patient was seen and examined. Objective - Vital Signs Vital signs: Vital Signs Temp 98.2 F 12/09/24 04:02 Pulse 88 12/09/24 04:02 Resp 16 12/09/24 04:02 BP 106/58 12/09/24 04:02 Pulse Ox 96 12/09/24 04:02 FiO2 Intake & Output 12/08/24 12/09/24 12/09/24 18:59 06:59 18:59 Intake Total 22.335 340.439 17.745 Output Total 400 Balance 22.335 -59.561 17.745 Weight 67.132 kg Intake: Intake, IV Titration 22.335 100.439 17.745 Amount Insulin Regular 100 unit 22.335 100.439 17.745 In Sodium Chloride 0.9% 100 ml @ 0.1 UNIT/KG/HR 6 .713 mls/hr IV .[id number] [facility] Rx#:[id number] Oral 240 Output: Urine 400 - Labs CBC & Chem 7: 12/09/24 04:12 12/09/24 07:40 Labs: Abnormal Lab Results - Last 24 Hours (Table) 12/08/24 12/08/24 12/08/24 Range/Units 09:24 10:46 12:59 WBC (3.8-10.6) k/uL RBC (3.80-5.40) m/uL Hgb (11.4-16.0) gm/dL Hct (34.0-46.0) % Neutrophils # (1.3-7.7) k/uL Lymphocytes # (1.0-4.8) k/uL VBG HCO3 (24-28) mmol/L Sodium (137-145) mmol/L Chloride (98-107) mmol/L Carbon Dioxide (22-30) mmol/L BUN (7-17) mg/dL Creatinine (0.52-1.04) mg/dL Glucose (74-99) mg/dL POC Glucose (mg/dL) >600 H* 589 H* 531 H* (70-110) mg/dL Phosphorus (2.5-4.5) mg/dL Total Bilirubin (0.2-1.3) mg/dL Total Protein (6.3-8.2) g/dL Albumin (3.5-5.0) g/dL 12/08/24 12/08/24 12/08/24 Range/Units 14:16 14:16 15:27 WBC (3.8-10.6) k/uL RBC (3.80-5.40) m/uL Hgb (11.4-16.0) gm/dL Hct (34.0-46.0) % Neutrophils # (1.3-7.7) k/uL Lymphocytes # (1.0-4.8) k/uL VBG HCO3 23 L (24-28) mmol/L Sodium 131 L (137-145) mmol/L Chloride 95 L (98-107) mmol/L Carbon Dioxide 20 L (22-30) mmol/L BUN 52 H (7-17) mg/dL Creatinine 1.66 H (0.52-1.04) mg/dL Glucose 445 H (74-99) mg/dL POC Glucose (mg/dL) 374 H (70-110) mg/dL Phosphorus 5.8 H (2.5-4.5) mg/dL Total Bilirubin (0.2-1.3) mg/dL Total Protein (6.3-8.2) g/dL Albumin (3.5-5.0) g/dL 12/08/24 12/08/24 12/08/24 Range/Units 16:27 17:31 17:49 WBC (3.8-10.6) k/uL RBC (3.80-5.40) m/uL Hgb (11.4-16.0) gm/dL Hct (34.0-46.0) % Neutrophils # (1.3-7.7) k/uL Lymphocytes # (1.0-4.8) k/uL VBG HCO3 (24-28) mmol/L Sodium 133 L (137-145) mmol/L Chloride (98-107) mmol/L Carbon Dioxide 20 L (22-30) mmol/L BUN 53 H (7-17) mg/dL Creatinine 1.74 H (0.52-1.04) mg/dL Glucose 221 H (74-99) mg/dL POC Glucose (mg/dL) 285 H 260 H (70-110) mg/dL Phosphorus (2.5-4.5) mg/dL Total Bilirubin (0.2-1.3) mg/dL Total Protein (6.3-8.2) g/dL Albumin (3.5-5.0) g/dL 12/08/24 12/08/24 12/08/24 Range/Units 18:36 19:32 20:30 WBC (3.8-10.6) k/uL RBC (3.80-5.40) m/uL Hgb (11.4-16.0) gm/dL Hct (34.0-46.0) % Neutrophils # (1.3-7.7) k/uL Lymphocytes # (1.0-4.8) k/uL VBG HCO3 (24-28) mmol/L Sodium (137-145) mmol/L Chloride (98-107) mmol/L Carbon Dioxide (22-30) mmol/L BUN (7-17) mg/dL Creatinine (0.52-1.04) mg/dL Glucose (74-99) mg/dL POC Glucose (mg/dL) 204 H 162 H 156 H (70-110) mg/dL Phosphorus (2.5-4.5) mg/dL Total Bilirubin (0.2-1.3) mg/dL Total Protein (6.3-8.2) g/dL Albumin (3.5-5.0) g/dL 12/08/24 12/08/24 12/08/24 Range/Units 21:46 22:46 23:25 WBC (3.8-10.6) k/uL RBC (3.80-5.40) m/uL Hgb (11.4-16.0) gm/dL Hct (34.0-46.0) % Neutrophils # (1.3-7.7) k/uL Lymphocytes # (1.0-4.8) k/uL VBG HCO3 (24-28) mmol/L Sodium 135 L (137-145) mmol/L Chloride (98-107) mmol/L Carbon Dioxide 21 L (22-30) mmol/L BUN 53 H (7-17) mg/dL Creatinine 1.73 H (0.52-1.04) mg/dL Glucose 217 H (74-99) mg/dL POC Glucose (mg/dL) 194 H 240 H (70-110) mg/dL Phosphorus (2.5-4.5) mg/dL Total Bilirubin (0.2-1.3) mg/dL Total Protein (6.3-8.2) g/dL Albumin (3.5-5.0) g/dL 12/08/24 12/09/24 12/09/24 Range/Units 23:30 00:24 01:31 WBC (3.8-10.6) k/uL RBC (3.80-5.40) m/uL Hgb (11.4-16.0) gm/dL Hct (34.0-46.0) % Neutrophils # (1.3-7.7) k/uL Lymphocytes # (1.0-4.8) k/uL VBG HCO3 (24-28) mmol/L Sodium (137-145) mmol/L Chloride (98-107) mmol/L Carbon Dioxide (22-30) mmol/L BUN (7-17) mg/dL Creatinine (0.52-1.04) mg/dL Glucose (74-99) mg/dL POC Glucose (mg/dL) 246 H 234 H 241 H (70-110) mg/dL Phosphorus (2.5-4.5) mg/dL Total Bilirubin (0.2-1.3) mg/dL Total Protein (6.3-8.2) g/dL Albumin (3.5-5.0) g/dL 12/09/24 12/09/24 12/09/24 Range/Units 02:42 03:38 04:12 WBC 11.1 H (3.8-10.6) k/uL RBC 2.91 L (3.80-5.40) m/uL Hgb 9.3 L (11.4-16.0) gm/dL Hct 28.2 L (34.0-46.0) % Neutrophils # 10.4 H (1.3-7.7) k/uL Lymphocytes # 0.5 L (1.0-4.8) k/uL VBG HCO3 (24-28) mmol/L Sodium (137-145) mmol/L Chloride (98-107) mmol/L Carbon Dioxide (22-30) mmol/L BUN (7-17) mg/dL Creatinine (0.52-1.04) mg/dL Glucose (74-99) mg/dL POC Glucose (mg/dL) 227 H 271 H (70-110) mg/dL Phosphorus (2.5-4.5) mg/dL Total Bilirubin (0.2-1.3) mg/dL Total Protein (6.3-8.2) g/dL Albumin (3.5-5.0) g/dL 12/09/24 12/09/24 12/09/24 Range/Units 04:12 04:35 05:41 WBC (3.8-10.6) k/uL RBC (3.80-5.40) m/uL Hgb (11.4-16.0) gm/dL Hct (34.0-46.0) % Neutrophils # (1.3-7.7) k/uL Lymphocytes # (1.0-4.8) k/uL VBG HCO3 (24-28) mmol/L Sodium 135 L (137-145) mmol/L Chloride (98-107) mmol/L Carbon Dioxide 19 L (22-30) mmol/L BUN 48 H (7-17) mg/dL Creatinine 1.69 H (0.52-1.04) mg/dL Glucose 292 H (74-99) mg/dL POC Glucose (mg/dL) 333 H 289 H (70-110) mg/dL Phosphorus (2.5-4.5) mg/dL Total Bilirubin 0.1 L (0.2-1.3) mg/dL Total Protein 5.9 L (6.3-8.2) g/dL Albumin 3.4 L (3.5-5.0) g/dL 12/09/24 12/09/24 Range/Units 06:20 07:35 WBC (3.8-10.6) k/uL RBC (3.80-5.40) m/uL Hgb (11.4-16.0) gm/dL Hct (34.0-46.0) % Neutrophils # (1.3-7.7) k/uL Lymphocytes # (1.0-4.8) k/uL VBG HCO3 (24-28) mmol/L Sodium (137-145) mmol/L Chloride (98-107) mmol/L Carbon Dioxide (22-30) mmol/L BUN (7-17) mg/dL Creatinine (0.52-1.04) mg/dL Glucose (74-99) mg/dL POC Glucose (mg/dL) 234 H 125 H (70-110) mg/dL Phosphorus (2.5-4.5) mg/dL Total Bilirubin (0.2-1.3) mg/dL Total Protein (6.3-8.2) g/dL Albumin (3.5-5.0) g/dL
[2024-12-09] MEDS: diphenhydrAMINE 25 MG CAP PO PRN (16:22)
[2024-12-09 16:38] LABS: African American GFR (CKD) 42 (>60 ml/min/1.73 sqM); Anion Gap 12 mmol/L; Blood Urea Nitrogen 49 mg/dL (7-17); Carbon Dioxide 19 mmol/L (22-30); Chloride 105 mmol/L (98-107); Glucose 255 mg/dL (74-99); Non-African American GFR(CKD) 36 (>60 ml/min/1.73 sqM); Potassium 4.5 mmol/L (3.5-5.1); Sodium 136 mmol/L (137-145)
[2024-12-09 16:46] LABS: Glucose,Whole Blood 205 mg/dL (70-110)
[2024-12-09 17:41] LABS: Glucose,Whole Blood 144 mg/dL (70-110)
[2024-12-09 18:32] LABS: Glucose,Whole Blood 152 mg/dL (70-110)
[2024-12-09 19:34] LABS: Glucose,Whole Blood 145 mg/dL (70-110)
[2024-12-09] MEDS: busPIRone HCl 10 MG TAB PO SCH (19:48)
[2024-12-09 20:22] LABS: African American GFR (CKD) 40 (>60 ml/min/1.73 sqM); Anion Gap 10 mmol/L; Blood Urea Nitrogen 49 mg/dL (7-17); Carbon Dioxide 20 mmol/L (22-30); Chloride 105 mmol/L (98-107); Glucose 164 mg/dL (74-99); Non-African American GFR(CKD) 35 (>60 ml/min/1.73 sqM); Potassium 4.8 mmol/L (3.5-5.1); Sodium 135 mmol/L (137-145)
[2024-12-09 20:38] LABS: Glucose,Whole Blood 177 mg/dL (70-110)
[2024-12-09 21:36] LABS: Glucose,Whole Blood 231 mg/dL (70-110)
[2024-12-09 22:42] LABS: Glucose,Whole Blood 329 mg/dL (70-110)
[2024-12-09 23:38] LABS: Glucose,Whole Blood 345 mg/dL (70-110)
[2024-12-10 00:32] LABS: Glucose,Whole Blood 343 mg/dL (70-110)
[2024-12-10 01:34] LABS: Glucose,Whole Blood 329 mg/dL (70-110)
[2024-12-10 02:06] LABS: African American GFR (CKD) 41 (>60 ml/min/1.73 sqM); Anion Gap 11 mmol/L; Blood Urea Nitrogen 47 mg/dL (7-17); Calcium 9.2 mg/dL (8.4-10.2); Carbon Dioxide 19 mmol/L (22-30); Chloride 105 mmol/L (98-107); Glucose 292 mg/dL (74-99); Non-African American GFR(CKD) 36 (>60 ml/min/1.73 sqM); Phosphorus 4.1 mg/dL (2.5-4.5); Sodium 135 mmol/L (137-145)
[2024-12-10 02:42] LABS: Glucose,Whole Blood 262 mg/dL (70-110)
[2024-12-10 03:49] LABS: Glucose,Whole Blood 223 mg/dL (70-110)
[2024-12-10 04:35] LABS: Glucose,Whole Blood 204 mg/dL (70-110)
[2024-12-10 06:05] LABS: Glucose,Whole Blood 138 mg/dL (70-110)
[2024-12-10 06:47] LABS: African American GFR (CKD) 47 (>60 ml/min/1.73 sqM); Anion Gap 9 mmol/L; Blood Urea Nitrogen 44 mg/dL (7-17); Calcium 9.4 mg/dL (8.4-10.2); Carbon Dioxide 20 mmol/L (22-30); Chloride 108 mmol/L (98-107); Glucose 144 mg/dL (74-99); Non-African American GFR(CKD) 41 (>60 ml/min/1.73 sqM); Phosphorus 4.3 mg/dL (2.5-4.5); Potassium 5.3 mmol/L (3.5-5.1); Sodium 137 mmol/L (137-145)
[2024-12-10 07:33] LABS: Glucose,Whole Blood 127 mg/dL (70-110)
[2024-12-10 08:34] LABS: Glucose,Whole Blood 336 mg/dL (70-110)
[2024-12-10] MEDS: IPRATROPIUM-ALBUTEROL 3 ML NEB INHALATION SCH (08:46)
[2024-12-10 08:55] VITALS: TEMP 98.1
[2024-12-10 09:34] LABS: Glucose,Whole Blood 334 mg/dL (70-110)
[2024-12-10 10:36] LABS: Glucose,Whole Blood 286 mg/dL (70-110)
[2024-12-10 11:30] LABS: Glucose,Whole Blood 243 mg/dL (70-110)
[2024-12-10 12:35] LABS: Glucose,Whole Blood 164 mg/dL (70-110)
--- NOTE | 2024-12-10 12:50 | P.PN ---
Subjective Progress Note Date: 12/10/24 I am seeing this patient Emergency Department for shortness of breath. The pat christianne is known to me. The patient presented to the ED with increased dyspnea. She is a former smoker and she is known to have COPD and pulm adenocarcinoma. She is status post right lower lobe lobectomy. The patient has increased dyspnea cough chest tightness and wheezing and presentation is typical for an acute CF exacerbation. Her blood sugars were also elevated. She is known to have also coronary artery disease and the patient has undergone a successful stenting of the OM1 back in 11/16/2024. She is free of any angina for now. In the emergency department, her blood work showed a white cell count of 7.7 with a hemoglobin of 10 and platelet count of 312. Normal coagulation profile. Sodium levels at 131, potassium level is at 4.4 with a chloride of 95 with a bicarb of 20. BUN is 52 with a creatinine of 1.5 as the patient has a component of chronic kidney disease. In terms of his COPD exacerbation, the patient was started on DuoNeb updrafts, Perforomist and Pulmicort nebulized treatments twice a day and IV Solu-Medrol. Blood sugars are being monitored for now. She is also on insulin drip for blood sugar control. Noted the patient is supposed to be on a combination of NovoLog Mix 70/30 and Lantus insulin and outpatient basis regarding her diabetes mellitus. Her blood sugars have been under poor control. On 12/09/2024, the patient is being seen for a follow-up. Has increased anxiety with systemic steroids and the patient is still on IV Solu-Medrol 60 mg every 6 hours. Appears to be less short of breath less bronchospastic and wheezy. She was started on BuSpar 50 mg p.o. twice a day. She remains on oxygen on room air and no significant hypoxemia. The patient is also on insulin drip for blood sugar control and blood sugar control is improved since yesterday. Rest of the medications are unchanged. She remains on DuoNeb. She remains on a combination of Perforomist and Pulmicort updrafts twice a day. Cardiology is on the case. She is free of any chest pain. 12/10/2024, the patient is being seen for a follow-up. She is a bit anxious as having some percent of the changes and anger due to the steroids. Otherwise, she is feeling well. She is less short of breath. She remains on insulin drip for blood sugar control. Cough and congestion has improved. Labs from today show a sodium level of 137, potassium of 5.3, bicarb is at 20, BUN is 44 with a creatinine of 1.4. The viral screen has been negative. She is on room air oxygen. Denies having any other specific complaints. Objective - Vital Signs Vital signs: Vital Signs Temp 98.1 F 12/10/24 08:54 Pulse 72 12/10/24 08:59 Resp 18 12/10/24 08:54 BP 120/58 12/10/24 08:54 Pulse Ox 99 12/10/24 08:54 FiO2 Intake & Output 12/09/24 12/10/24 12/10/24 18:59 06:59 18:59 Intake Total 1381.551 598.576 493.435 Output Total 450 Balance 1381.551 148.576 493.435 Weight 67.132 kg 71 kg Intake: Intake, IV Titration 77.551 58.576 13.435 Amount Insulin Regular 100 unit 77.551 58.576 13.435 In Sodium Chloride 0.9% 100 ml @ 0.1 UNIT/KG/HR 6 .713 mls/hr IV .[id number] [facility] Rx#:[id number] Oral 1304 540 480 Output: Urine 450 Other: # Voids 2 1 - Exam The patient appeared well nourished and normally developed. Vital signs as documented. Head exam is unremarkable. No scleral icterus or corneal arcus noted. Neck is without jugular venous distension, thyromegaly, or carotid bruits. Carotid upstrokes are brisk bilaterally. Lungs are are diminished bilaterally along with scattered expiratory wheezes throughout the lung berry Cardiac exam reveals the PMI to be normally sized and situated. Rhythm is regular. First and second heart sounds normal. No murmurs, rubs or gallops. Abdominal exam reveals normal bowel sounds, no masses, no organomegaly and no aortic enlargement. Extremities are nonedematous and both femoral and pedal pulses are normal. Examination of the skin revealed no evidence of significant rashes, suspicious appearing nevi or other concerning lesions. Neurologically, the patient is awake and alert and the patient does not have any focal neurological deficit. Cranial nerves are essentially intact. - Labs CBC & Chem 7: 12/09/24 04:12 12/10/24 05:42 Labs: Abnormal Lab Results - Last 24 Hours (Table) 12/09/24 12/09/24 12/09/24 Range/Units 11:34 12:42 13:35 Sodium (137-145) mmol/L Potassium (3.5-5.1) mmol/L Chloride (98-107) mmol/L Carbon Dioxide (22-30) mmol/L BUN (7-17) mg/dL Creatinine (0.52-1.04) mg/dL Glucose (74-99) mg/dL POC Glucose (mg/dL) 343 H 371 H 376 H (70-110) mg/dL Phosphorus (2.5-4.5) mg/dL 12/09/24 12/09/24 12/09/24 Range/Units 14:35 15:19 16:09 Sodium (137-145) mmol/L Potassium (3.5-5.1) mmol/L Chloride (98-107) mmol/L Carbon Dioxide (22-30) mmol/L BUN (7-17) mg/dL Creatinine (0.52-1.04) mg/dL Glucose (74-99) mg/dL POC Glucose (mg/dL) 370 H 358 H (70-110) mg/dL Phosphorus 4.7 H (2.5-4.5) mg/dL 12/09/24 12/09/24 12/09/24 Range/Units 16:09 16:45 17:40 Sodium 136 L (137-145) mmol/L Potassium (3.5-5.1) mmol/L Chloride (98-107) mmol/L Carbon Dioxide 19 L (22-30) mmol/L BUN 49 H (7-17) mg/dL Creatinine 1.54 H (0.52-1.04) mg/dL Glucose 255 H (74-99) mg/dL POC Glucose (mg/dL) 205 H 144 H (70-110) mg/dL Phosphorus (2.5-4.5) mg/dL 12/09/24 12/09/24 12/09/24 Range/Units 18:30 19:32 19:56 Sodium 135 L (137-145) mmol/L Potassium (3.5-5.1) mmol/L Chloride (98-107) mmol/L Carbon Dioxide 20 L (22-30) mmol/L BUN 49 H (7-17) mg/dL Creatinine 1.61 H (0.52-1.04) mg/dL Glucose 164 H (74-99) mg/dL POC Glucose (mg/dL) 152 H 145 H (70-110) mg/dL Phosphorus (2.5-4.5) mg/dL 12/09/24 12/09/24 12/09/24 Range/Units 20:37 21:35 22:40 Sodium (137-145) mmol/L Potassium (3.5-5.1) mmol/L Chloride (98-107) mmol/L Carbon Dioxide (22-30) mmol/L BUN (7-17) mg/dL Creatinine (0.52-1.04) mg/dL Glucose (74-99) mg/dL POC Glucose (mg/dL) 177 H 231 H 329 H (70-110) mg/dL Phosphorus (2.5-4.5) mg/dL 12/09/24 12/10/24 12/10/24 Range/Units 23:36 00:30 01:26 Sodium 135 L (137-145) mmol/L Potassium (3.5-5.1) mmol/L Chloride (98-107) mmol/L Carbon Dioxide 19 L (22-30) mmol/L BUN 47 H (7-17) mg/dL Creatinine 1.57 H (0.52-1.04) mg/dL Glucose 292 H (74-99) mg/dL POC Glucose (mg/dL) 345 H 343 H (70-110) mg/dL Phosphorus (2.5-4.5) mg/dL 12/10/24 12/10/24 12/10/24 Range/Units 01:33 02:41 03:47 Sodium (137-145) mmol/L Potassium (3.5-5.1) mmol/L Chloride (98-107) mmol/L Carbon Dioxide (22-30) mmol/L BUN (7-17) mg/dL Creatinine (0.52-1.04) mg/dL Glucose (74-99) mg/dL POC Glucose (mg/dL) 329 H 262 H 223 H (70-110) mg/dL Phosphorus (2.5-4.5) mg/dL 12/10/24 12/10/24 12/10/24 Range/Units 04:34 05:42 06:04 Sodium (137-145) mmol/L Potassium 5.3 H (3.5-5.1) mmol/L Chloride 108 H (98-107) mmol/L Carbon Dioxide 20 L (22-30) mmol/L BUN 44 H (7-17) mg/dL Creatinine 1.40 H (0.52-1.04) mg/dL Glucose 144 H (74-99) mg/dL POC Glucose (mg/dL) 204 H 138 H (70-110) mg/dL Phosphorus (2.5-4.5) mg/dL 12/10/24 12/10/24 12/10/24 Range/Units 07:32 08:33 09:33 Sodium (137-145) mmol/L Potassium (3.5-5.1) mmol/L Chloride (98-107) mmol/L Carbon Dioxide (22-30) mmol/L BUN (7-17) mg/dL Creatinine (0.52-1.04) mg/dL Glucose (74-99) mg/dL POC Glucose (mg/dL) 127 H 336 H 334 H (70-110) mg/dL Phosphorus (2.5-4.5) mg/dL Assessment and Plan Plan: Acute COPD exacerbation, no evidence of pneumonia and the chest x-ray is essentially clear. Clinically improving and the patient is currently on room air oxygen. Steroid-induced agitation and anxiety Coronary artery disease with previous Non-ST elevation MS, status post heart catheterization done 11/16/2024, patient did receive PCI/stenting of the OM1. Acute on chronic dyspnea secondary to COPD exacerbation History of pulmonary adenocarcinoma, status post right sided video-assisted thorascopic surgery and right lower lobectomy on 09/29/2023. Recent chest CT done outpatient 09/18/2024 showing postsurgical changes of partial right lower lobectomy, previously seen spiculated 2.1 cm mass with cavitation in the right lower lobe nearly completely resolved. There was a small 7.5 mm residual nodule. New 5.4 mm nodule in the posterior right upper lobe. Disease recurrence cannot be excluded. Recommendation was for short-term follow-up Former tobacco dependence, quitting 2 months ago History of pulmonary embolism, not currently on anticoagulation Diabetes mellitus type 1, poorly controlled blood sugar and the patient is currently hyperglycemic, on insulin drip Acute kidney injury, with possibly a component of chronic kidney disease in addition. Anemia of chronic disease History of hypothyroidism History of multiple sclerosis Chronic lumbar back pain and moderate multilevel degeneration with for moderate to severe spinal canal stenosis at L3-L5 Obesity, with a BMI of 30.1 kg/m History of anxiety/depression Plan: Continue DuoNeb nebulized treatments [id number] Continue Perforomist and Pulmicort updrafts twice a day Discontinue the IV Solu-Medrol and put the patient on prednisone starting with 20 mg for 5 days and 10 mg for 5 days. Continue BuSpar 30 mg twice a day. Insulin drip and this can be transitioned to long-acting insulin Blood sugar control has improved Gradually transition this patient to long-acting insulin once the blood sugars under better control Monitor renal function renal function continues to improve Resume cardiac medications Previous echocardiogram showing a preserved left ventricular ejection fraction of 55 to 60% without regional wall abnormalities. Smoking cessation counseling was done. Possible discharge today or within the next 24 hours.
[2024-12-10 13:45] LABS: Glucose,Whole Blood 198 mg/dL (70-110)
[2024-12-10 14:56] LABS: Glucose,Whole Blood 387 mg/dL (70-110)
[2024-12-10 16:02] LABS: Glucose,Whole Blood 457 mg/dL (70-110)
[2024-12-10] MEDS: INSULIN ASPART (NovoLOG) 100 UNIT/ML VIAL SQ ONE (16:57)
[2024-12-10] MEDS: INSULIN DETEMIR (LEVEMIR) 100 UNIT/ML SYR SQ SCH (16:57)
[2024-12-10 17:23] VITALS: BP 128/75; PULSE 75; RESP 16
[2024-12-11] MEDS ORDERED: predniSONE 20 MG TAB PO SCH (09:00)
--- NOTE | 2024-12-11 13:31 | P.DS ---
Providers Date of admission: 12/08/24 01:10 Expected date of discharge: 12/10/24 Attending physician: Azeem Keen Consults: 12/08/24 00:30 Consult Physician Routine Consulting Provider: Laurie Garcia Consult Reason/Comments: copd Do you want consulting provider notified?: Yes Primary care physician: [facility] Course: Chief Complaint: Short of breath This is a pleasant 59-year-old patient, follows with Dr. Ryan Pino. Extensive medical history to include COPD, diabetes, hypertension, osteoarthritis, hypothyroid, previous seizure disorder from hypoglycemia, multiple sclerosis, diabetic peripheral neuropathy, optic neuritis, restless leg syndrome anxiety depression. 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 Patient smoking until up to a month ago. Patient present increasing shortness of breath for last 2 days. Really could not get her breath. No cough no edema. No fever no chills. Just very short of breath. No edema. Patient Accu-Cheks running high this morning. In 400s. Patient's home insulin dose was not correct that was fixed. Patient underwent successful angioplasty stent to OM1 by Dr. Harris in November 16. Was scheduled this coming Wednesday for another cardiac cath by Dr. Harris. December 09: Sitting on the edge of bed. Took a shower. Breathing better. On DuoNeb. IV Solu-Medrol. Started today. On insulin drip. Oral intake better. December 10: Patient's insulin drip was discontinued. She is very fragile distraught high she stated. Solu-Medrol discontinued. Will not be sent on home prednisone. Will follow-up with Dr. Garcia. Patient is keen to go home as she has a cardiac catheterization scheduled for tomorrow. Significant dose of NovoLog and an extra dose of Levemir was given. Patient resume home dose of insulin. Questions answered. Patient scheduled for a cardiac catheterization tomorrow by Dr. Harris. Discussion and discharge planning more than 35 minutes Delete Past medical history to include: COPD, diabetes, GERD, osteoarthritis, seizure disorder, hypothyroid, multiple sclerosis, diabetic peripheral neuropathy, optic neuritis, decreased vision in the eyes,;, restless leg syndrome, colon polyps, anxiety depression Social history: started smoking in 1978. Half a pack a day. Stopped in October 2024. She was drinking heavy alcohol up to about 2017. Has a roommate Aubree. Occasionally does marijuana. Does use a cane Physical examination: VITAL SIGNS: Afebrile, 70, 16, 120 x 75, 97% room air GENERAL: BMI 28.9, sitting up in bed, more comfortable EYES: Pupils equal. Conjunctiva normal. HEENT: External appearance of nose and ears normal, oral cavity grossly normal. NECK: JVD not raised; masses not palpable. HEART: First and second heart sounds are normal; no edema. LUNGS: Respiratory rate normal; diminished breath sounds, mild wheezing ABDOMEN: Soft, nontender, liver spleen not palpable, no masses palpable. PSYCH: [Alert and oriented x3; mood and affect anxious INVESTIGATIONS, reviewed in the clinical context: December 07: White count 7.7 hemoglobin 10 platelets 312 sodium 135 potassium 3.3 BUN 37 creatinine 1.5 Initial glucose 66 yesterday. Today greater than 600 Troponin I 0.028, 0.026, 0.017 Influenza type A, type B, RSV, COVID-19: Not detected EKG tracing personally reviewed by me-normal sinus rhythm. Chest x-ray film personally reviewed by me-lung berry clear Assessment and plan: -Acute severe COPD exacerbation in a recent smoker's been smoking for a long time. DuoNeb Q4. Nebulized Pulmicort. Nebulized Perforomist. IV [id number] -October 2024: Acute non-ST elevation myocardial infarction Successful angioplasty stent to OM1 by Dr. Harris-November 16 Aspirin. Brilinta Patient scheduled for another cardiac catheterization on December [address] 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 Right lower lobe lobectomy September 2023 -Chronic arthritis multiple joints specially lumbar spine. Due for surgery. Ultram 50 mg twice daily. Neurontin. Flexeril as needed. -Diabetes mellitus type 2, chronically on insulin. . Uncontrolled with hyperglycemia. Secondary to IV steroids: Patient received insulin drip. -Diabetic peripheral neuropathy Neurontin 800 mg 3 times daily -Hypothyroid Synthroid 176 mcg -GERD Pepcid -Restless leg syndrome requip 2 mg every daily at bedtime -Anxiety depression BuSpar -Full code Disposition: Home Past Medical History Past Medical History: Cancer, COPD, Diabetes Mellitus, Eye Disorder, GERD/Reflux, Hypertension, Myocardial Infarction (CA), Musculoskeletal Disorder, Osteoarthritis (OA), Pneumonia, Pulmonary Embolus (PE), Seizure Disorder, Thyroid Disorder Additional Past Medical History / Comment(s): seizure disorder secondary to hypoglycemia, last seizure approx. year ago, hypothyroid, multiple sclerosis, diabetic peripheral neuropathy, optic neuritis, decreased vision in the eyes, restless leg syndrome, colon polyps, anxiety depression, Hx prob w/ cervical discs., DDD, hx. lung cancer 2022-had surg., PE 2022, recent adm. for pneumonia Last Myocardial Infarction Date:: unk History of Any Multi-Drug Resistant Organisms: None Reported Past Surgical History: Adenoidectomy, Appendectomy, Heart Catheterization With Stent, Orthopedic Surgery, Tonsillectomy, Tubal Ligation Additional Past Surgical History / Comment(s): Laparoscopies. Pain procedures., bronson. cataracts removed. right lower lobectomy,. cervical fusion,right ankle fusion Past Anesthesia/Blood Transfusion Reactions: Family History of Problems w/ Anesthesia, Motion Sickness Additional Past Anesthesia/Blood Transfusion Reaction / Comment(s): no blood transfusions, needs more than average amount of versed for it to work, mom used to wake up during surg. Date of Last Stent Placement:: 2023 Past Psychological History: Anxiety, Depression Smoking Status: Former smoker Plan - Discharge Summary Discharge Rx Participant: Yes New Discharge Prescriptions: New Spironolactone [Aldactone] 12.5 mg PO DAILY #30 tab Furosemide [Lasix] 20 mg PO DAILY #30 tab QUEtiapine [SEROquel] 100 mg PO HS PRN tab PRN Reason: Insomnia Budesonide/Formoterol Fumarate [Symbicort 160-4.5 Mcg Inhaler] 1 puff INHALATION BID #10.2 gm Continue cloNIDine HCL [Catapres] 0.3 mg PO HS Benzonatate [Tessalon Perles] 100 mg PO TID PRN #20 cap PRN Reason: Cough busPIRone HCL 15 mg PO BID PRN PRN Reason: Anxiety traMADol HCL 50 mg PO BID PRN PRN Reason: Pain HYDROcodone/APAP 5-325MG [[place] 5-325] 1 tab PO TID PRN PRN Reason: pain rOPINIRole HCL [Requip] 2 mg PO HS Levothyroxine Sodium [Synthroid] 175 mcg PO DAILY Cyclobenzaprine [Flexeril] 10 mg PO TID PRN PRN Reason: Muscle Spasm diphenhydrAMINE [Benadryl] 25 mg PO DAILY PRN PRN Reason: Allergy Symptoms Insulin Aspart [NovoLOG Flexpen] See Protocol SQ ACHS Atorvastatin [Lipitor] 40 mg PO HS 30 Days #30 tab ARIPiprazole [Abilify] 5 mg PO HS Pantoprazole Sodium [Protonix] 40 mg PO DAILY Insulin Aspart Prot/Insuln Asp [NovoLOG MIX 70-30 Flexpen] 12 unit SQ W/B RKFST Montelukast [Singulair] 10 mg PO DAILY Albuterol Sulfate [Albuterol Sulfate Hfa] 2 puff INHALATION RT-Q6H PRN PRN Reason: Shortness Of Breath Insulin Aspart Prot/Insuln Asp [NovoLOG MIX 70-30 Flexpen] 10 unit SQ W/SUPPER Gabapentin [Neurontin] 800 mg PO TID Albuterol Nebulized [Ventolin Nebulized] 2.5 mg INHALATION RT-Q4H PRN PRN Reason: Shortness Of Breath Aspirin 81 mg PO DAILY 30 Days #30 tab Ticagrelor [Brilinta] 90 mg PO BID 30 Days #60 tab Dapagliflozin Propanediol [Farxiga] 10 mg PO DAILY 30 Days #30 tab Insulin Glargine,Hum.rec.anlog [Lantus Solostar Pen] 20 units SQ DAILY Metoprolol Tartrate [Lopressor] 12.5 mg PO BID Discontinued Furosemide [Lasix] 40 mg PO DAILY 30 Days #30 tab Discharge Medication List Montelukast [Singulair] 10 mg PO DAILY 07/28/22 [History] Albuterol Sulfate [Albuterol Sulfate Hfa] 2 puff INHALATION RT-Q6H PRN 09/27/23 [History] Gabapentin [Neurontin] 800 mg PO TID 10/26/23 [History] Insulin Aspart Prot/Insuln Asp [NovoLOG MIX 70-30 Flexpen] 10 unit SQ W/SUPPER 10/26/23 [History] cloNIDine HCL [Catapres] 0.3 mg PO HS 10/26/23 [History] Benzonatate [Tessalon Perles] 100 mg PO TID PRN #20 cap 11/02/23 [Rx] Albuterol Nebulized [Ventolin Nebulized] 2.5 mg INHALATION RT-Q4H PRN 11/15/24 [History] Cyclobenzaprine [Flexeril] 10 mg PO TID PRN 11/15/24 [History] HYDROcodone/APAP 5-325MG [[place] 5-325] 1 tab PO TID PRN 11/15/24 [History] Insulin Aspart [NovoLOG Flexpen] See Protocol SQ ACHS 11/15/24 [History] Levothyroxine Sodium [Synthroid] 175 mcg PO DAILY 11/15/24 [History] busPIRone HCL 15 mg PO BID PRN 11/15/24 [History] diphenhydrAMINE [Benadryl] 25 mg PO DAILY PRN 11/15/24 [History] rOPINIRole HCL [Requip] 2 mg PO HS 11/15/24 [History] traMADol HCL 50 mg PO BID PRN 11/15/24 [History] Aspirin 81 mg PO DAILY 30 Days #30 tab 11/20/24 [Rx] Atorvastatin [Lipitor] 40 mg PO HS 30 Days #30 tab 11/20/24 [Rx] Dapagliflozin Propanediol [Farxiga] 10 mg PO DAILY 30 Days #30 tab 11/20/24 [Rx] Ticagrelor [Brilinta] 90 mg PO BID 30 Days #60 tab 11/20/24 [Rx] ARIPiprazole [Abilify] 5 mg PO HS 12/07/24 [History] Insulin Glargine,Hum.rec.anlog [Lantus Solostar Pen] 20 units SQ DAILY 12/07/24 [History] Insulin Aspart Prot/Insuln Asp [NovoLOG MIX 70-30 Flexpen] 12 unit SQ W/BRKFST 12/08/24 [History] Metoprolol Tartrate [Lopressor] 12.5 mg PO BID 12/08/24 [History] Pantoprazole Sodium [Protonix] 40 mg PO DAILY 12/08/24 [History] Budesonide/Formoterol Fumarate [Symbicort 160-4.5 Mcg Inhaler] 1 puff INHALATION BID #10.2 gm 12/10/24 [Rx] Furosemide [Lasix] 20 mg PO DAILY #30 tab 12/10/24 [Rx] QUEtiapine [SEROquel] 100 mg PO HS PRN tab 12/10/24 [Rx] Spironolactone [Aldactone] 12.5 mg PO DAILY #30 tab 12/10/24 [Rx] Follow up Appointment(s)/Referral(s): Gustavo Harris MD [STAFF PHYSICIAN] - 1-2 Days (Please call to schedule follow up appoitment) Ryan Pino MD [Primary Care Provider] - 1-2 days (Please call to schedule follow up appoitment) Laurie Garcia MD [STAFF PHYSICIAN] - 3 Days (Please call to schedule follow up appoitment) Discharge Disposition: HOME SELF-CARE
== END 2024-12-10 17:46 | disposition home or self-care (01) | DRG 191 ==
LOC: EC 22:58 → 6NMEDSUR 12-08 01:09 → OBSVTOIN 12-08 01:10 → 6NMEDSUR 12-08 06:00 → 3SCARD 12-08 17:02
PROVIDERS: ADMIT Hospitalist; ATTEND Hospitalist
DX: J44.1 Chronic obstructive pulmonary disease with (acute) exacerbation (principal); I13.0 Hypertensive heart and chronic kidney disease with heart failure and stage 1 through stage 4 chronic kidney disease, or unspecified chronic kidney disease; N17.9 Acute kidney failure, unspecified; E03.9 Hypothyroidism, unspecified; G25.81 Restless legs syndrome; G35 Multiple sclerosis; I50.9 Heart failure, unspecified; N18.9 Chronic kidney disease, unspecified; M19.90 Unspecified osteoarthritis, unspecified site; E10.65 Type 1 diabetes mellitus with hyperglycemia; G40.909 Epilepsy, unspecified, not intractable, without status epilepticus; E10.42 Type 1 diabetes mellitus with diabetic polyneuropathy; F17.200 Nicotine dependence, unspecified, uncomplicated; K21.9 Gastro-esophageal reflux disease without esophagitis; F32.A Depression, unspecified; D63.1 Anemia in chronic kidney disease; F41.9 Anxiety disorder, unspecified; G89.29 Other chronic pain; M54.50 Low back pain, unspecified; M48.061 Spinal stenosis, lumbar region without neurogenic claudication; E66.9 Obesity, unspecified; I25.10 Atherosclerotic heart disease of native coronary artery without angina pectoris; E10.22 Type 1 diabetes mellitus with diabetic chronic kidney disease; Z79.82 Long term (current) use of aspirin; Z79.899 Other long term (current) drug therapy; Z85.118 Personal history of other malignant neoplasm of bronchus and lung; Z79.4 Long term (current) use of insulin; Z79.890 Hormone replacement therapy; Z88.8 Allergy status to other drugs, medicaments and biological substances; I25.2 Old myocardial infarction; Z86.711 Personal history of pulmonary embolism; Z68.30 Body mass index [BMI] 30.0-30.9, adult; Z95.5 Presence of coronary angioplasty implant and graft; Z79.84 Long term (current) use of oral hypoglycemic drugs; Z86.0100 Personal history of colon polyps, unspecified
CPT/HCPCS: 36415; 71046; 80048; 80051; 80053; 82009; 82565; 82803; 82947; 83036; 83735; 83880; 84100; 84484; 84520; 85025; 85610; 85730; 87636; 93005; 94640; 94760; 96361; 96365; 96366; 96372; 96375; 96376; 99285

== ENCOUNTER 2024-12-11 07:07 | Day surgery (SDC) | payer MEDICARE, OTHER ==
[~2024-12-11 07:07] MED LIST changes: +ALPRAZolam 0.25 MG TAB PO PRN; -CYCLOBENZAPRINE 10 MG TAB ONE; -DEXTROSE 5%-0.45% NACL 1,000 ML BAG IV ONE; -DEXTROSE 50% SYRINGE 50 ML IVP ONE; -FAMOTIDINE 20 MG TAB ONE; -GABAPENTIN 400 MG CAP ONE; +HEPARIN SODIUM,PORCINE (1 ML) 2,500 UNIT in SODIUM CHLORIDE 0.9% 250 ML IRRIGATION PRN; +HEPARIN SODIUM,PORCINE 10,000 UNIT in SODIUM CHLORIDE 0.9% 1,000 ML IRRIGATION PRN; -HYDROcodone/APAP 5-325MG 1 EACH TAB ONE; -IBUPROFEN 800 MG TAB ONE; -LEVOTHYROXINE 125 MCG TAB ONE; -LEVOTHYROXINE 25 MCG TAB ONE; -MONTELUKAST 10 MG TAB ONE; -MORPHINE SULFATE 4 MG/ML SYRINGE ONE; +NITROGLYCERIN SL TABS 0.4 MG TAB SUBLINGUAL PRN; -VENLAFAXINE HCL ER 150 MG CAP PO ONE; -VENLAFAXINE HCL ER 75 MG CAP PO ONE
[2024-12-11] MEDS: SODIUM CHLORIDE 0.9% 1,000 ML in EMPTY BAG 1 BAG IV ONE (07:31)
[2024-12-11] MEDS: INSULIN ASPART (NovoLOG) 100 UNIT/ML VIAL SQ ONE (07:31)
[2024-12-11] MEDS: ASPIRIN 325 MG TAB PO STA (07:32)
[2024-12-11 07:36] LABS: Glucose,Whole Blood 213 mg/dL (70-110)
[2024-12-11] MEDS: IV FLUID CONTINUATION 1,000 ML IV ONE (07:37)
[2024-12-11] MEDS: HEPARIN SODIUM,PORCINE (1 ML) 2,500 UNIT in SODIUM CHLORIDE 0.9% 250 ML IRRIGATION ONE (07:48)
[2024-12-11] MEDS: HEPARIN SODIUM,PORCINE 10,000 UNIT in SODIUM CHLORIDE 0.9% 1,000 ML IRRIGATION ONE (07:48)
[2024-12-11] MEDS: MIDAZOLAM 2 MG/2 ML VIAL IVP ONE ×2 (07:54→08:23)
[2024-12-11] MEDS: LIDOCAINE 1% INJ 10MG/ML (20 ML MDV) SQ ONE (07:58)
[2024-12-11] MEDS: VERAPAMIL SYRINGE (5 MG/10 ML) INTRAARTER ONE (07:59)
[2024-12-11] MEDS: HEPARIN SODIUM 1,000 UN/ML (10ML VL) IVP ONE ×5 (08:00→09:48)
[2024-12-11] MEDS: fentaNYL (PF) 50 MCG/ML 2 ML AMP IVP ONE (08:00)
[2024-12-11] MEDS: IOPAMIDOL-370 100ML BTL INJ ONE ×2 (08:52→09:39)
[2024-12-11] MEDS: NITROGLYCERIN 1000MCG/10ML SYRINGE INTRACORON ONE (09:09)
[2024-12-11] MEDS: HYDROmorphone 0.5 MG/0.5 ML SYRINGE IVP ONE (09:26)
[2024-12-11] MEDS: PHENYLEPHRINE 10 MG/ML VIAL IV ONE (09:34)
[2024-12-11] MEDS ORDERED: ALBUTEROL HFA INHALER INHALATION PRN (09:49)
[2024-12-11] MEDS ORDERED: traMADol 50 MG TAB PO PRN (09:49)
[2024-12-11] MEDS ORDERED: QUEtiapine 100 MG TAB PO PRN (09:49)
[2024-12-11] MEDS ORDERED: busPIRone HCl 5 MG TAB PO PRN (09:49)
[2024-12-11] MEDS ORDERED: ATROPINE SULFATE 0.1 MG/ML 10ML SYRINGE IV PRN (09:55)
[2024-12-11] MEDS ORDERED: ZOLPIDEM 5 MG TAB PO PRN (09:55)
[2024-12-11] MEDS ORDERED: RX INFO: IV CONTRAST WAS GIVEN 1 EACH MISC MISCELLANE PRN (09:55)
[2024-12-11] MEDS ORDERED: MAG HYDROX/AL HYDROX/SIMETH 30 ML CUP PO PRN (09:55)
[2024-12-11 12:02] LABS: Glucose,Whole Blood 342 mg/dL (70-110)
[2024-12-11] MEDS: ACETAMINOPHEN TAB 500 MG TAB PO STA (12:42)
--- NOTE | 2024-12-11 13:24 | P.PCN ---
Date of Procedure: 12/11/24 Operative Findings: CARDIAC CATHETERIZATION AND PERCUTANEOUS CORONARY INTERVENTION PERFORMING PHYSICIAN: Gustavo Harris MD, [facility] PROCEDURE PERFORMED: 1. Selective right and left coronary angiogram 2. Left heart catheterization 3. Successful stenting of proximal to mid LAD using 3.0 x 28 mm Xience LACEY with an excellent angiographic results 4. Successful stenting of the mid LAD using 2.5 x 15 mm Xience LACEY with an excellent angiographic results 5. Adjunctive use of IVUS and lithotripsy balloon and Dobler wire 6. Ultrasound-guided access of the right radial artery INDICATION: Symptomatic 59-year-old female patient who is known to have CAD with prior stenting of OM from before and known intermediate lesion involving the LAD COMPLICATION: None APPROACH: Right radial artery LEVEL OF SEDATION: Moderate with the sedation time off 72 minutes PROCEDURE DESCRIPTION: After obtaining informed consent the patient was brought to the cardiac [employer] Manager with right radial artery was cannulated using micropuncture technique under ultrasound guidance a micropuncture wire passed easily then I placed a 6 Croatian 11 cm sheath at the right radial artery. Anticoagulation was initiated using heparin with continuous ACT monitoring. Subsequently I did selective right and left coronary angiogram using JR4 and JL 3.5 catheters for left heart catheterization was performed using a pigtail catheter. After that I decided to intervene only LAD by performing a Dobler wire. Anticoagulation continued using heparin with continuous ACT monitoring. After zeroing the Doppler wire and equalizing between the Dobler wire and guiding catheter which was JL 3.5 guiding catheter the left main was engaged and the LAD was wired with IFR came to be significantly low at 0.52. At that point I decided to intervene on the LAD. Giving her tortuous and calcified the LAD I decided to use another wire while leaving the Dobler wire in the place in the LAD and wiring the LAD using a run- through wire. After that I did intravascular ultrasound IVUS of the LAD where the IVUS did not cross the mid LAD but was able to get to the proximal to mid LAD and diameter came in to be around 3 mm. Predilatation initially was attempted using the lithotripsy balloon but the balloon would not cross the lesion. 2.5 mm noncompliant balloon was able to cross the lesion and I did PTCA following on the whole area in the proximal to mid left anterior descending artery. Attempting advancing lithotripsy balloon at this point was unsuccessful over a double wire but was successful using GuideLiner. I did PTCA of the proximal to mid LAD using the lithotripsy balloon. After that attempting advancing 3.0 x 28 mm Xience LACEY was successful with extreme difficulties. I deployed the stent in the proximal to mid LAD. An angiogram was taken after that and showed that the distal edge of the stent appeared to have an edge dissection extending into the dye agreed I decided to cover that with a stent. I was able with difficulties again advancing 2.5 x 15 mm Xience LACEY where the stent was positioned under fluoroscopy guidance and deployed under fluoroscopy events with the area of overlap was postdilated using the stent balloon. Final angiogram showed good angiographic results and the IVUS again showed that the stent was well opposed and expanded except for an area in the midportion by the bifurcation of the leg where the stent appeared to be slightly thinned. Please note that I did postdilatation using 3.25 mm noncompliant balloon as well. The procedure was completed with no complication SELECTIVE CORONARY ANGIOGRAM: The right coronary artery: Medium caliber vessel nondominant vessel appears to have mild disease only Left main: Appears to have mild disease only The left circumflex: The stent in OM1 appeared to be widely patent The left anterior descending artery: The proximal LAD appeared to have mild disease only and the mid LAD appeared to have intermediate lesion documented to be flow-limiting by Doppler wire and that by the bifurcation of a diagonal branch HEMODYNAMICS: The LVEDP was about 12 mmHg with no significant gradient across aortic valve CONCLUSION: Patent stent in OM1 of the left circumflex coronary artery Intermediate to severe disease involving the proximal to mid LAD documented to be flow-limiting by Doppler wire and I did perform successful PCI as described above POSTPROCEDURE MANAGEMENT: 1. Dual antiplatelet therapy using aspirin and Brilinta for at least 6 month 2. Aggressive cholesterol control 3. Follow-up with the patient
[2024-12-11] MEDS: GABAPENTIN 400 MG CAP PO SCH (15:55)
[2024-12-11] MEDS: CYCLOBENZAPRINE 10 MG TAB PO PRN (15:55)
[2024-12-11] MEDS: HYDROcodone/APAP 5-325MG 1 EACH TAB PO PRN (15:57)
[2024-12-11 16:25] LABS: Glucose,Whole Blood 267 mg/dL (70-110)
[2024-12-11] MEDS ORDERED: DEXTROSE 50% SYRINGE 50 ML IVP PRN ×2 (16:48)
[2024-12-11] MEDS: ALBUTEROL NEBULIZED 2.5 MG/3 ML INHALATION PRN (16:57)
[2024-12-11] MEDS: INSULIN ASPART (NovoLOG) 100 UNIT/ML VIAL SQ SCH (17:20)
[2024-12-11] MEDS: SYMBICORT 160-4.5 MCG INHALER INHALATION SCH (20:06)
[2024-12-11 20:07] LABS: Glucose,Whole Blood 240 mg/dL (70-110)
[2024-12-11] MEDS: cloNIDine HCL 0.1 MG TAB PO SCH (20:40)
[2024-12-11] MEDS: TICAGRELOR 90 MG TAB PO SCH (20:40)
[2024-12-11] MEDS: ARIPiprazole 5 MG TAB PO SCH (20:40)
[2024-12-11] MEDS: ALPRAZolam 0.5 MG TAB PO PRN (20:40)
[2024-12-11] MEDS: METOPROLOL TARTRATE 12.5 MG TAB PO SCH (20:40)
[2024-12-11] MEDS: ATORVASTATIN 40 MG TAB PO SCH (20:41)
[2024-12-12 04:02] VITALS: RESP 16
[2024-12-12 05:29] LABS: Glucose,Whole Blood 349 mg/dL (70-110)
[2024-12-12] MEDS: INSULIN DETEMIR (LEVEMIR) 100 UNIT/ML SYR SQ SCH (06:01)
[2024-12-12] MEDS: PANTOPRAZOLE 40 MG TABLET PO SCH (06:02)
[2024-12-12] MEDS: LEVOTHYROXINE 88 MCG TAB PO SCH (06:02)
[2024-12-12] MEDS: BENZONATATE 100 MG CAP PO PRN (06:08)
[2024-12-12 07:39] LABS: Basophils % (A) 0 %; Eosinophils % (A) 0 %; HCT 29.9 % (34.0-46.0); HGB 9.4 gm/dL (11.4-16.0); Hypochromasia Moderate; Lymphocytes # (A) 2.3 k/uL (1.0-4.8); Lymphocytes % (A) 34 %; MCH 31.2 pg (25.0-35.0); MCHC 31.3 g/dL (31.0-37.0); MCV 99.9 fL (80.0-100.0); Mean Platelet Volume 8.7; Monocytes # (A) 0.4 k/uL (0-1.0); Monocytes % (A) 7 %; Neutrophils # (A) 3.9 k/uL (1.3-7.7); Neutrophils % (A) 58 %; Platelet Count 378 k/uL (150-450); RDW 13.3 % (11.5-15.5); WBC 6.8 k/uL (3.8-10.6)
[2024-12-12 07:51] LABS: African American GFR (CKD) 48 (>60 ml/min/1.73 sqM); Anion Gap 9 mmol/L; Blood Urea Nitrogen 36 mg/dL (7-17); Carbon Dioxide 19 mmol/L (22-30); Chloride 106 mmol/L (98-107); Glucose 291 mg/dL (74-99); Non-African American GFR(CKD) 42 (>60 ml/min/1.73 sqM); Potassium 5.1 mmol/L (3.5-5.1); Sodium 134 mmol/L (137-145)
[2024-12-12] MEDS: MONTELUKAST 10 MG TAB PO SCH (08:35)
[2024-12-12] MEDS: SPIRONOLACTONE 25 MG TAB PO SCH (08:35)
[2024-12-12] MEDS: FUROSEMIDE 20 MG TAB PO SCH (08:35)
[2024-12-12] MEDS: ASPIRIN 81 MG PO SCH (08:36)
[2024-12-12] MEDS: DAPAGLIFLOZIN PROPANEDIOL 10 MG TABLET PO SCH (08:36)
--- NOTE | 2024-12-12 09:29 | P.DS ---
Providers Attending physician: Gustavo Harris Consults: 12/11/24 09:55 Consult Physician Routine Consulting Provider: [facility] Consult Reason/Comments: Post Interventional patient Do you want consulting provider notified?: Already Contacted Primary care physician: Ryan Odette [facility] Course: The patient is a 59-year-old female patient who underwent yesterday heart catheterization and PCI of the LAD with a good angiographic results She was seen and evaluated this morning she is asymptomatic and hemodynamically stable. The patient is going to be discharged home on dual antiplatelet therapy and I will follow-up with the patient next week in the office. Plan - Discharge Summary Discharge Rx Participant: No New Discharge Prescriptions: Continue cloNIDine HCL [Catapres] 0.3 mg PO HS Benzonatate [Tessalon Perles] 100 mg PO TID PRN #20 cap PRN Reason: Cough busPIRone HCL 15 mg PO BID PRN PRN Reason: Anxiety traMADol HCL 50 mg PO BID PRN PRN Reason: Pain HYDROcodone/APAP 5-325MG [[place] 5-325] 1 tab PO TID PRN PRN Reason: pain rOPINIRole HCL [Requip] 2 mg PO HS Levothyroxine Sodium [Synthroid] 175 mcg PO DAILY Cyclobenzaprine [Flexeril] 10 mg PO TID PRN PRN Reason: Muscle Spasm diphenhydrAMINE [Benadryl] 25 mg PO DAILY PRN PRN Reason: Allergy Symptoms Insulin Aspart [NovoLOG Flexpen] See Protocol SQ ACHS Atorvastatin [Lipitor] 40 mg PO HS 30 Days #30 tab ARIPiprazole [Abilify] 5 mg PO HS Pantoprazole Sodium [Protonix] 40 mg PO DAILY Insulin Aspart Prot/Insuln Asp [NovoLOG MIX 70-30 Flexpen] 12 unit SQ W/BRKFST Spironolactone [Aldactone] 12.5 mg PO DAILY #30 tab Furosemide [Lasix] 20 mg PO DAILY #30 tab Montelukast [Singulair] 10 mg PO DAILY Albuterol Sulfate [Albuterol Sulfate Hfa] 2 puff INHALATION RT-Q6H PRN PRN Reason: Shortness Of Breath Insulin Aspart Prot/Insuln Asp [NovoLOG MIX 70-30 Flexpen] 10 unit SQ W/SUPPER Gabapentin [Neurontin] 800 mg PO TID Albuterol Nebulized [Ventolin Nebulized] 2.5 mg INHALATION RT-Q4H PRN PRN Reason: Shortness Of Breath Aspirin 81 mg PO DAILY 30 Days #30 tab Ticagrelor [Brilinta] 90 mg PO BID 30 Days #60 tab Dapagliflozin Propanediol [Farxiga] 10 mg PO DAILY 30 Days #30 tab Insulin Glargine,Hum.rec.anlog [Lantus Solostar Pen] 20 units SQ DAILY Metoprolol Tartrate [Lopressor] 12.5 mg PO BID QUEtiapine [SEROquel] 100 mg PO HS PRN tab PRN Reason: Insomnia Budesonide/Formoterol Fumarate [Symbicort 160-4.5 Mcg Inhaler] 1 puff INHALATION BID #10.2 gm Discharge Medication List Montelukast [Singulair] 10 mg PO DAILY 07/28/22 [History] Albuterol Sulfate [Albuterol Sulfate Hfa] 2 puff INHALATION RT-Q6H PRN 09/27/23 [History] Gabapentin [Neurontin] 800 mg PO TID 10/26/23 [History] Insulin Aspart Prot/Insuln Asp [NovoLOG MIX 70-30 Flexpen] 10 unit SQ W/SUPPER 10/26/23 [History] cloNIDine HCL [Catapres] 0.3 mg PO HS 10/26/23 [History] Benzonatate [Tessalon Perles] 100 mg PO TID PRN #20 cap 11/02/23 [Rx] Albuterol Nebulized [Ventolin Nebulized] 2.5 mg INHALATION RT-Q4H PRN 11/15/24 [History] Cyclobenzaprine [Flexeril] 10 mg PO TID PRN 11/15/24 [History] HYDROcodone/APAP 5-325MG [[place] 5-325] 1 tab PO TID PRN 11/15/24 [History] Insulin Aspart [NovoLOG Flexpen] See Protocol SQ ACHS 11/15/24 [History] Levothyroxine Sodium [Synthroid] 175 mcg PO DAILY 11/15/24 [History] busPIRone HCL 15 mg PO BID PRN 11/15/24 [History] diphenhydrAMINE [Benadryl] 25 mg PO DAILY PRN 11/15/24 [History] rOPINIRole HCL [Requip] 2 mg PO HS 11/15/24 [History] traMADol HCL 50 mg PO BID PRN 11/15/24 [History] Aspirin 81 mg PO DAILY 30 Days #30 tab 11/20/24 [Rx] Atorvastatin [Lipitor] 40 mg PO HS 30 Days #30 tab 11/20/24 [Rx] Dapagliflozin Propanediol [Farxiga] 10 mg PO DAILY 30 Days #30 tab 11/20/24 [Rx] Ticagrelor [Brilinta] 90 mg PO BID 30 Days #60 tab 11/20/24 [Rx] ARIPiprazole [Abilify] 5 mg PO HS 12/07/24 [History] Insulin Glargine,Hum.rec.anlog [Lantus Solostar Pen] 20 units SQ DAILY 12/07/24 [History] Insulin Aspart Prot/Insuln Asp [NovoLOG MIX 70-30 Flexpen] 12 unit SQ W/BRKFST 12/08/24 [History] Metoprolol Tartrate [Lopressor] 12.5 mg PO BID 12/08/24 [History] Pantoprazole Sodium [Protonix] 40 mg PO DAILY 12/08/24 [History] Budesonide/Formoterol Fumarate [Symbicort 160-4.5 Mcg Inhaler] 1 puff INHALATION BID #10.2 gm 12/10/24 [Rx] Furosemide [Lasix] 20 mg PO DAILY #30 tab 12/10/24 [Rx] QUEtiapine [SEROquel] 100 mg PO HS PRN tab 12/10/24 [Rx] Spironolactone [Aldactone] 12.5 mg PO DAILY #30 tab 12/10/24 [Rx] Follow up Appointment(s)/Referral(s): Gustavo Harris MD [STAFF PHYSICIAN] - 1 Week (OFFICE WILL CONTACT PATIENT WITH FOLLOW UP APPOINTMENT. ) Patient Instructions/Handouts: Moderate Sedation (DC), After Radial Heart Catheterization (GEN), Left Heart Catheterization (DC) Activity/Diet/Wound Care/Special Instructions: NO DRIVING FOR TWO DAYS. OK TO SHOWER TOMORROW BUT NO SOAKING WRIST IN DISH WATER, POOLS, TUBS FOR THREE DAYS TO PREVENT INFECTION. SIGNS OF INFECTION IE: FEVER RASH UNUSUAL DRAINAGE OR HARD KNOT OVER PUNCTURE SITE CONTACT DOCTOR OR GO TO ER TO BE EVALUATED. IF PUNCTURE SITE BLEEDS, APPLY FIRM PRESSURE AND GO TO ER. DO NOT DRIVE SELF. AVOID PUSHING PULLING LIFTING MORE THAN 5 LBS FOR FIVE DAYS. MEDICATIONS DIRECTED BY [facility] FOLLOW UP FALL RISK/SAFETY PRECAUTIONS. Encourage fluids x2 days
[2024-12-12 10:10] VITALS: BP 142/60; PULSE 81; TEMP 98.3
== END 2024-12-12 10:44 | disposition home or self-care (01) ==
LOC: CATHCVL 07:07 → 3SCARD 09:42 → CATHCVL 12-12 10:44
PROVIDERS: ATTEND Internal Medicine Interventional Cardiology
DX: I25.110 Atherosclerotic heart disease of native coronary artery with unstable angina pectoris (principal); I25.84 Coronary atherosclerosis due to calcified coronary lesion; I25.2 Old myocardial infarction; Z95.5 Presence of coronary angioplasty implant and graft; I10 Essential (primary) hypertension; E10.9 Type 1 diabetes mellitus without complications; E78.00 Pure hypercholesterolemia, unspecified; I05.0 Rheumatic mitral stenosis; J44.9 Chronic obstructive pulmonary disease, unspecified; Z79.02 Long term (current) use of antithrombotics/antiplatelets; Z79.4 Long term (current) use of insulin; Z79.890 Hormone replacement therapy; Z79.899 Other long term (current) drug therapy; Z87.891 Personal history of nicotine dependence; Z86.711 Personal history of pulmonary embolism; Z85.118 Personal history of other malignant neoplasm of bronchus and lung; Z90.2 Acquired absence of lung [part of]; Z82.49 Family history of ischemic heart disease and other diseases of the circulatory system
CPT/HCPCS: 94640 ×4; 92978; 93458; 93799; 92972; 80048; 85025; 83036; 99152; 99153 ×4; C9600; C1887 ×2; C1769 ×5; C1894; C1725 ×6; C1753; C1874 ×2; C1761; J2250; J1644 ×3; J2003; J3010; J1171; Q9967; J2371; J2305

== ENCOUNTER 2025-02-18 19:54 | Emergency (ER) | payer MEDICARE, OTHER ==
[2025-02-18 20:04] VITALS: RESP 17; TEMP 98
--- NOTE | 2025-02-18 20:55 | ED ---
Alcohol HPI - General Chief Complaint: Alcohol Stated Complaint: ETOH Time Seen by Provider: 02/18/25 20:00 Source: patient, EMS, RN notes reviewed, old records reviewed Mode of arrival: EMS Limitations: no limitations, altered mental status - History of Present Illness Initial Comments: This is a 59 female to the ER for evaluation. Patient coming in for public intoxication and ER evaluation. Denying homicidal or suicidal thoughts does admit to alcohol intoxication history of chronic alcohol, patient is not under petition MD Complaint: alcohol intoxication Last Drink: just [employer]CH[employer]ING [employer]ENT -: minute(s) Previous Visits for Alcohol Intoxication?: Yes Recent Trauma: Yes Treatments Prior to Arrival: none Chronic Alcohol Use: Yes - Related Data Home Medications Medication Instructions Recorded Confirmed Montelukast [Singulair] 10 mg PO DAILY 07/28/22 12/11/24 Albuterol Sulfate [Albuterol 2 puff INHALATION RT-Q6H PRN 09/27/23 12/11/24 Sulfate Hfa] Gabapentin [Neurontin] 800 mg PO TID 10/26/23 12/11/24 Insulin Aspart Prot/Insuln Asp 10 unit SQ W/SUPPER 10/26/23 12/11/24 [NovoLOG MIX 70-30 Flexpen] cloNIDine HCL [Catapres] 0.3 mg PO HS 10/26/23 12/11/24 Albuterol Nebulized [Ventolin 2.5 mg INHALATION RT-Q4H PRN 11/15/24 12/11/24 Nebulized] Cyclobenzaprine [Flexeril] 10 mg PO TID PRN 11/15/24 12/11/24 HYDROcodone/APAP 5-325MG [[place] 1 tab PO TID PRN 11/15/24 12/11/24 5-325] Insulin Aspart [NovoLOG Flexpen] See Protocol SQ ACHS 11/15/24 12/11/24 Levothyroxine Sodium [Synthroid] 175 mcg PO DAILY 11/15/24 12/11/24 busPIRone HCL 15 mg PO BID PRN 11/15/24 12/11/24 diphenhydrAMINE [Benadryl] 25 mg PO DAILY PRN 11/15/24 12/11/24 rOPINIRole HCL [Requip] 2 mg PO HS 11/15/24 12/11/24 traMADol HCL 50 mg PO BID PRN 11/15/24 12/11/24 ARIPiprazole [Abilify] 5 mg PO HS 12/07/24 12/11/24 Insulin Glargine,Hum.rec.anlog 20 units SQ DAILY 12/07/24 12/11/24 [Lantus Solostar Pen] Insulin Aspart Prot/Insuln Asp 12 unit SQ W/BRKFST 12/08/24 12/11/24 [NovoLOG MIX 70-30 Flexpen] Metoprolol Tartrate [Lopressor] 12.5 mg PO BID 12/08/24 12/11/24 Pantoprazole Sodium [Protonix] 40 mg PO DAILY 12/08/24 12/11/24 Previous Rx's Medication Instructions Recorded Benzonatate [Tessalon Perles] 100 mg PO TID PRN #20 cap 11/02/23 Aspirin 81 mg PO DAILY 30 Days #30 tab 11/20/24 Atorvastatin [Lipitor] 40 mg PO HS 30 Days #30 tab 11/20/24 Dapagliflozin Propanediol [Farxiga] 10 mg PO DAILY 30 Days #30 tab 11/20/24 Ticagrelor [Brilinta] 90 mg PO BID 30 Days #60 tab 11/20/24 Budesonide/Formoterol Fumarate 1 puff INHALATION BID #10.2 gm 12/10/24 [Symbicort 160-4.5 Mcg Inhaler] Furosemide [Lasix] 20 mg PO DAILY #30 tab 12/10/24 QUEtiapine [SEROquel] 100 mg PO HS PRN tab 12/10/24 Spironolactone [Aldactone] 12.5 mg PO DAILY #30 tab 12/10/24 Allergies Allergy/AdvReac Type Severity Reaction Status Date / Time erythromycin base AdvReac Nausea & Verified 02/18/25 20:04 Vomiting Review of Systems ROS Statement: Those systems with pertinent positive or pertinent negative responses have been documented in the HPI. ROS Other: All systems not noted in ROS Statement are negative. Past Medical History Past Medical History: Cancer, COPD, Diabetes Mellitus, Eye Disorder, GERD/Reflux, Hypertension, Myocardial Infarction ([place]), Musculoskeletal Disorder, Osteoarthritis (OA), Pneumonia, Pulmonary Embolus (PE), Seizure Disorder, Thyroid Disorder Additional Past Medical History / Comment(s): seizure disorder secondary to hypoglycemia, last seizure approx. year ago, hypothyroid, multiple sclerosis, diabetic peripheral neuropathy, optic neuritis, decreased vision in the eyes, r estless leg syndrome, colon polyps, anxiety depression, Hx prob w/ cervical discs., DDD, hx. lung cancer 2022-had surg., PE 2022, recent adm. for pneumonia Last Myocardial Infarction Date:: unk History of Any Multi-Drug Resistant Organisms: None Reported Past Surgical History: Adenoidectomy, Appendectomy, Heart Catheterization With Stent, Orthopedic Surgery, Tonsillectomy, Tubal Ligation Additional Past Surgical History / Comment(s): Laparoscopies. Pain procedures., bronson. cataracts removed. right lower lobectomy,. cervical fusion,right ankle fusion Past Anesthesia/Blood Transfusion Reactions: Family History of Problems w/ Anesthesia, Motion Sickness Additional Past Anesthesia/Blood Transfusion Reaction / Comment(s): no blood transfusions, needs more than average amount of versed for it to work, mom used to wake up during surg. Date of Last Stent Placement:: 2023 Past Psychological History: Anxiety, Depression Smoking Status: Former smoker Past Alcohol Use History: Rare Past Drug Use History: Marijuana - Past Family History Mother Family Medical History: Myocardial Infarction ([place]) Additional Family Medical History / Comment(s): Mother at age 48 from coronary artery disease. Patient does not have any brothers and sisters. She has one adult son with no major medical problems. General Exam Limitations: no limitations General appearance: alert, in no apparent distress, appears intoxicated Head exam: Present: atraumatic, normocephalic, normal inspection Eye exam: Present: normal appearance, PERRL, EOMI. Absent: scleral icterus, conjunctival injection, periorbital swelling ENT exam: Present: normal exam, mucous membranes moist Neck exam: Present: normal inspection. Absent: tenderness, meningismus, lymphadenopathy Respiratory exam: Present: normal lung sounds bilaterally. Absent: respiratory distress, wheezes, rales, rhonchi, stridor Cardiovascular Exam: Present: regular rate, normal rhythm, normal heart sounds. Absent: systolic murmur, diastolic murmur, rubs, gallop, clicks GI/Abdominal exam: Present: soft, normal bowel sounds. Absent: distended, tende rness, guarding, rebound, rigid Extremities exam: Present: normal inspection, full ROM, normal capillary refill. Absent: tenderness, pedal edema, joint swelling, calf tenderness Back exam: Present: normal inspection Neurological exam: Present: alert, oriented X3, CN II-XII intact Psychiatric exam: Present: normal affect, normal mood Skin exam: Present: warm, dry, intact, normal color. Absent: rash Course Vital Signs 02/18/25 02/18/25 20:01 20:40 Temperature 98.0 F Pulse Rate 81 70 Respiratory 17 17 Rate Blood Pressure 111/60 105/61 O2 Sat by Pulse 95 97 Oximetry - Reevaluation(s) Reevaluation #1: 02/18/25 22:35 Medical records reviewed Reevaluation #2: 02/18/25 22:35 Patient resting and remains showing intoxication here in the ER Reevaluation #3: 02/18/25 22:35 Patient informed of results and questions answered Reevaluation #5: Differential Altered Mental Status: Hypoglycemia, DKA, hypercapnia, ETOH, overdose, CO poisoning, trauma, myxedema coma, HTN encephalopathy, infection, encephalitis, psychosis, intercranial hemorrhage, hepatic encephalopathy, meningitis, CVA, this is not meant to be an all-inclusive list Medical Decision Making - Medical Decision Making 59 female with severe alcohol intoxication. At this point patient can be discharged home where she is awake alert and able to ambulate - Lab Data Result diagrams: 02/18/25 21:06 02/18/25 21:06 Lab Results 02/18/25 02/18/25 Range/Units 21:06 21:06 WBC 10.2 (3.8-10.6) k/uL RBC 5.06 (3.80-5.40) m/uL Hgb 14.8 (11.4-16.0) gm/dL Hct 45.3 (34.0-46.0) % MCV 89.5 (80.0-100.0) fL MCH 29.3 (25.0-35.0) pg MCHC 32.8 (31.0-37.0) g/dL RDW 13.0 (11.5-15.5) % Plt Count 341 (150-450) k/uL MPV 9.0 Neutrophils % 53 % Lymphocytes % 40 % Monocytes % 3 % Eosinophils % 0 % Basophils % 1 % Neutrophils # 5.3 (1.3-7.7) k/uL Lymphocytes # 4.1 (1.0-4.8) k/uL Monocytes # 0.4 (0-1.0) k/uL Eosinophils # 0.0 (0-0.7) k/uL Basophils # 0.1 (0-0.2) k/uL Sodium 135 L (137-145) mmol/L Potassium 3.6 (3.5-5.1) mmol/L Chloride 97 L (98-107) mmol/L Carbon Dioxide 24 (22-30) mmol/L Anion Gap 14 mmol/L BUN 33 H (7-17) mg/dL Creatinine 1.57 H (0.52-1.04) mg/dL Est GFR (CKD-EPI)AfAm 41 (>60 ml/min/1.73 sqM) Est GFR (CKD-EPI)NonAf 36 (>60 ml/min/1.73 sqM) Glucose 186 H (74-99) mg/dL Calcium 10.2 (8.4-10.2) mg/dL Phosphorus 4.4 (2.5-4.5) mg/dL Magnesium 2.2 (1.6-2.3) mg/dL Total Bilirubin 0.4 (0.2-1.3) mg/dL AST 33 (14-36) U/L ALT 26 (4-34) U/L Alkaline Phosphatase 100 (38-126) U/L Total Protein 7.9 (6.3-8.2) g/dL Albumin 4.6 (3.5-5.0) g/dL Lipase 244 (23-300) U/L Serum Alcohol 258 H* mg/dL - EKG Data -: EKG Interpreted by Me (EKG is sinus 78 RI 143 QRS 104 QTc 367) Disposition Clinical Impression: Weakness, Alcohol abuse, Alcoholic intoxication Disposition: HOME SELF-CARE Condition: Fair Instructions (If sedation given, give patient instructions): Alcohol Intoxication (ED) Is patient prescribed a controlled substance at d/c from ED?: No Referrals: Ryan Pino MD [Primary Care Provider] - 1-2 days Time of Disposition: 22:00
[2025-02-18] MEDS: SODIUM CHLORIDE 0.9% 1,000 ML IV STA (21:10)
[2025-02-18 21:16] LABS: Basophils # (A) 0.1 k/uL (0-0.2); Basophils % (A) 1 %; Eosinophils % (A) 0 %; HCT 45.3 % (34.0-46.0); HGB 14.8 gm/dL (11.4-16.0); Lymphocytes # (A) 4.1 k/uL (1.0-4.8); Lymphocytes % (A) 40 %; MCH 29.3 pg (25.0-35.0); MCHC 32.8 g/dL (31.0-37.0); MCV 89.5 fL (80.0-100.0); Monocytes # (A) 0.4 k/uL (0-1.0); Monocytes % (A) 3 %; Neutrophils # (A) 5.3 k/uL (1.3-7.7); Neutrophils % (A) 53 %; Platelet Count 341 k/uL (150-450); RBC 5.06 m/uL (3.80-5.40); WBC 10.2 k/uL (3.8-10.6)
[2025-02-18 21:25] LABS: ALT 26 U/L (4-34); AST 33 U/L (14-36); African American GFR (CKD) 41 (>60 ml/min/1.73 sqM); Albumin 4.6 g/dL (3.5-5.0); Alkaline Phosphatase 100 U/L (38-126); Anion Gap 14 mmol/L; Blood Urea Nitrogen 33 mg/dL (7-17); Calcium 10.2 mg/dL (8.4-10.2); Carbon Dioxide 24 mmol/L (22-30); Chloride 97 mmol/L (98-107); Glucose 186 mg/dL (74-99); Lipase 244 U/L (23-300); Magnesium 2.2 mg/dL (1.6-2.3); Non-African American GFR(CKD) 36 (>60 ml/min/1.73 sqM); Phosphorus 4.4 mg/dL (2.5-4.5); Potassium 3.6 mmol/L (3.5-5.1); Sodium 135 mmol/L (137-145); Total Bilirubin 0.4 mg/dL (0.2-1.3); Total Protein 7.9 g/dL (6.3-8.2)
[2025-02-18 21:38] LABS: Alcohol 258 mg/dL
[2025-02-18] MEDS: SODIUM CHLORIDE 0.9% 500 ML 500 ML IV STA (22:38)
[2025-02-18 23:03] VITALS: BP 114/63; PULSE 73
== END 2025-02-18 23:03 | disposition home or self-care (01) ==
LOC: EC 19:54
DX: R53.1 Weakness (principal); F10.129 Alcohol abuse with intoxication, unspecified; Z87.891 Personal history of nicotine dependence; Z88.1 Allergy status to other antibiotic agents; Y90.8 Blood alcohol level of 240 mg/100 ml or more
CPT/HCPCS: 36415; 80053; 83690; 83735; 84100; 85025; 99284; 96360; 96361; G0480; 80320

== ENCOUNTER → 2025-03-23 | Outpatient (CLI) | payer MEDICARE, OTHER ==
[2025-03-23 13:07] LABS: African American GFR (CKD) 41 (>60 ml/min/1.73 sqM); Blood Urea Nitrogen 33 mg/dL (7-17); Non-African American GFR(CKD) 35 (>60 ml/min/1.73 sqM)
--- NOTE | 2025-03-23 14:05 | CT ---
EXAMINATION TYPE: CT chest wo con DATE OF EXAM: 03/23/2025 1:38 PM COMPARISON: 09/18/2024 CLINICAL INDICATION: Female, 60 years old with history of C34.90 LUNG CA; PHH, RIGHT LOWER LUMBECTOMY 1 1/2 YEARS AGO TECHNIQUE: Multiple axial images were obtained through the chest. Sagittal and coronal reformats were created for review. MIP was performed on a separate workstation. Contrast used: mL of (None if empty) Oral contrast used: (None if empty) CT DLP: 449 mGycm, Automated exposure control for dose reduction was used. FINDINGS: LUNGS/ PLEURA: Postsurgical changes to the right lower lung. No new or enlarging pulmonary nodules. N o focal consolidation, pneumothorax or pleural effusion. AIRWAY: Patent and unremarkable. HEART: Size within normal limits. Diffuse increased density throughout the coronary arteries. Mitral valve annular calcifications. MEDIASTINUM: No gross evidence of adenopathy. VASCULATURE: No aortic aneurysm. MUSCULOSKELETAL: No acute osseous abnormalities postsurgical changes to the ribs with multiple nonhea led fractures involving right rib 7 and 8 fixation hardware in the lower cervical spine appears intac t. SOFT TISSUES/LYMPH NODES: Unremarkable LOWER NECK: No significant findings. UPPER ABDOMEN: No significant findings. IMPRESSION: 1. Post surgical changes related lower lobe. No new or enlarging pulmonary nodules. No adenopathy. 2. Severe high density within the coronary arteries correlate for prior intervention versus atherosc lerosis. [facility], , 03/23/2025 2:02 PM
== END | disposition home or self-care (01) ==
LOC: RADCTMAIN 12:18
PROVIDERS: ATTEND Internal Medicine Critical Care Medicine
DX: C34.90 Malignant neoplasm of unspecified part of unspecified bronchus or lung (principal); Z98.890 Other specified postprocedural states
CPT/HCPCS: 36415; 71250; 82565; 84520